=== PATIENT | female | born 2000 | race African-American/Black ===

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

== ENCOUNTER → 2021-01-02 07:30 | Outpatient (CLI) | payer MEDICAID, SELFPAY ==
[2021-01-03 13:34] LABS: Thyroid Peroxidase AB < 9 IU/mL (0-26)
== END ==
DX: E07.89 Other specified disorders of thyroid (principal)
CPT/HCPCS: 36415; 86376

== ENCOUNTER 2021-04-03 17:33 | Emergency (ER) | payer MEDICAID, SELFPAY ==
[2021-03-06 14:54] VITALS: BMI 38.1
[2021-04-03 17:33] VITALS: BP 138/74; PULSE 100; RESP 18; TEMP 36.2; O2SAT 95; BMI 36.8
--- NOTE | 2021-04-03 17:40 | EDS_ITS ---
HPI History of Present Illness Chief Complaint: Lower Extremity Injury Narrative Narrative: Patient presents with left foot pain after twisting injury in the parking lot about 45 minutes ago. She has no ankle pain no knee pain no other injury. She is still able to ambulate. [facility] Medical History Asthma Contraceptive management PCOS (polycystic ovarian syndrome) Home Medications etonogestrel 68 mg subdermal implant 1 implant SUBDERMAL ONCE 03/06/21 [History Last Taken Unknown] Allergy/AdvReac Type Severity Reaction Status Date / Time vancomycin Allergy Anaphylaxis Verified 09/06/20 09:54 Family History Unknown Diabetes Hyperlipidemia Surgical History History of strabismus surgery Social History household members: other details: mother and two brothers Smoking Status: Never smoker alcohol intake: never substance use type: does not use what type of physical activity do you participate in: none do you feel safe at home: Yes additional social history: single- Patient work at [email or web address] in [place] and Mr. Hernandez in [facility] ROS ED ROS Narrative Past medical history: none Medications: Reviewed Social history: Noncontributory Review of systems: Musculoskeletal: Left foot pain as in HPI Skin: No abrasions or lacerations Neurological: No weakness or paresthesias Hematologic: No easy bleeding or easy bruising EXAM Physical Exam Narrative Exam Narrative: Physical exam General: Patient does not appear in significant distress . Head: Normocephalic, Atraumatic Neck: No C-spine tenderness Cardiovascular: Normal distal pulses Back: Nontender, Normal Inspection. Extremities: No ankle pain. Left foot does show proximal fifth metatarsal tenderness there is no edema. Neurovascularly intact. Skin: No abrasions, no lacerations Neurological: Normal strength and sensation Const Vital Signs: 04/03/21 17:33 Temperature 97.2 F L Temperature Source Temporal Pulse Rate 100 Respiratory Rate 18 Blood Pressure 138/74 H Blood Pressure Mean 95 Pulse Ox 95 Oxygen Delivery Method Room Air MDM MDM MDM Narrative Medical decision making narrative: Patient has a normal x-ray. She appears well I will discharge her with reassurance. Radiography Diagnostic Testing: Left foot x-ray interpreted by emergency doctor does not show any fracture. Normal alignment Discharge Plan Triage Chief Complaint: Lower Extremity Injury ED Provider: Elton Herrera Dx/Rx/DC Orders Clinical Impression: Contusion of foot Instructions: ED Foot Contusion Prescriptions: No Action Nexplanon 68 mg implant 1 implant subdermal ONCE RF: 0 Primary Care Provider: [facility] Mariana Akers Referrals: [facility] Mariana Akers [Primary Care Provider] - 2 Days Disposition Disposition: Home, Self Care
--- NOTE | 2021-04-03 18:00 | RAD_ITS ---
STUDY: X-RAY - LEFT FOOT CLINICAL: Female, 20 years old. TWISTED FOOT IN PARKING LOT TODAY. PAIN ALL OVER TECHNIQUE: 3 view(s) of the foot. COMPARISON: None. FINDINGS: Normal talus, calcaneus, and tarsal bones. Normal visualized subtalar, talonavicular, calcaneocuboid, tarsal and tarsometatarsal articulations. Normal metatarsi. Normal metatarsophalangeal joint of the great toe. Normal tibial and fibular sesamoid bones. Normal interphalangeal joint of the great toe. Normal phalanges of the great toe. Normal second through fifth metatarsophalangeal joints. Normal interphalangeal joints and phalanges of the lesser toes. The soft tissue structures are unremarkable. There is no demonstrated fracture. RAD/Foot min 3 Views IMPRESSION: Normal x-ray examination of the foot. Electronically Signed: Silvino De Santiago MD at 19:25 EDT , Service support ,
== END 2021-04-03 18:23 | disposition home or self-care (01) ==
LOC: ED 18:18
PROVIDERS: Emergency Provider Emergency Medicine
DX: S90.32XA Contusion of left foot, initial encounter (principal); X50.1XXA Overexertion from prolonged static or awkward postures, initial encounter; Y93.9 Activity, unspecified; Y92.481 Parking lot as the place of occurrence of the external cause; Y99.9 Unspecified external cause status; J45.909 Unspecified asthma, uncomplicated; E28.2 Polycystic ovarian syndrome
CPT/HCPCS: 73630; 99282

== ENCOUNTER 2021-05-24 01:46 | Emergency (ER) | payer MEDICAID, SELFPAY ==
[2021-05-24 01:47] VITALS: BP 153/95; PULSE 107; RESP 18; TEMP 36.1; O2SAT 99; BMI 37.1
--- NOTE | 2021-05-24 01:57 | EX.ED.SAOD ---
HPI History of Present Illness Chief Complaint: Substance Abuse Detail of Chief Complaint: Smoke marijuana for the first time Informant: patient Onset/Context/Timing Onset: Hours Context: Sudden Onset Timing: Continuous Quality: I feel weird. I do not feel my feet. Patient states did not smell like ma Location: Not applicable Current Severity: Mild Maximum Severity: Moderate Worsened by: Smoking marijuana Relieved by: Nothing Associated Symptoms Associated Symptoms: Positive for change in mental status; Negative for vomiting*, diarrhea*, fever*, rash*, seizure, sex for drugs*, unknown, suicidal ideation, homicidal ideation and *HIV Risk Factors:Consider testing if last test > 6 months Prehospital Treatment: Naloxone, Glucose, Oxygen, BVM and CPR Narrative Narrative: Patient is a 20-year-old who states she smoked marijuana for the first time. She states it did not smell like marijuana. When asked to explain her self she states she is been around friends who have smoked it and this smell differently. Patient states she feels weird. She states she cannot feel her feet. She denies headache, visual, ocular auditory symptoms. Denies hallucinations. Denies cardiac or respiratory symptoms. She denies GI symptoms. She denies urologic symptoms. She denies symptoms of . Prior similar symptoms: No Recent Illness/Hospitalization: No PFSH PFSH Medical History Asthma Contraceptive management PCOS (polycystic ovarian syndrome) Home Medications etonogestrel 68 mg subdermal implant 1 implant SUBDERMAL ONCE 03/06/21 [History Last Taken Unknown] Allergy/AdvReac Type Severity Reaction Status Date / Time vancomycin Allergy Anaphylaxis Verified 09/06/20 09:54 Family History Unknown Diabetes Hyperlipidemia Surgical History History of strabismus surgery Social History household members: other details: mother and two brothers Smoking Status: Never smoker alcohol intake: never substance use type: does not use what type of physical activity do you participate in: none do you feel safe at home: Yes additional social history: single- Patient work at [employer] in [place] and Mr. Hernandez in [place] [employer] ROS ED Constitutional Constitutional ED: Denies chills, fever(s), subjective or sweats Eyes Eyes: Reports blurry vision; Denies change in vision or diplopia ENT ENT ED: Denies ear pain, rhinorrhea or sore throat Cardiovascular Cardiovascular: Denies chest pain, palpitations or racing heartbeat Respiratory/Chest Respiratory/Chest: Denies cough, dyspnea or dyspnea on exertion Gastrointestinal Gastrointestinal: Reports nausea; Denies abdominal pain, diarrhea or vomiting Genitourinary Genitourinary ED: Denies dysuria, LMP (females 10-50) or urinary frequency Musculoskeletal Musculoskeletal: Denies arthralgias, back pain, myalgias or neck pain Integumentary Denies rash Neurologic Neurologic: Denies headache(s), paresthesias or weakness Psychiatric Psychiatric: Reports other Details: Inappropriate laugh Hematologic/Lymphatic Hematologic/Lymphatic: Denies easy bleeding or easy bruising EXAM Physical Exam Const Vital Signs: 05/24/21 01:47 Temperature 97 F L Temperature Source Temporal Pulse Rate 107 H Respiratory Rate 18 Blood Pressure 153/95 H Blood Pressure Mean 114 Pulse Ox 99 Positive well nourished, well developed and obese General Appearance ED: well developed, NAD and other Patient with inappropriate laughing comments. ; Negative for pallor Nutritional Appearance: obese HEENT Reports TM's clear and moist mucous membranes HEENT Narrative: Head is normocephalic. Ears normal. atraumatic Tympanic Membrane ED: Yes TM's clear Eyes PERRL and EOMs intact bilaterally General Eye ED: Negative for pale conjunctiva or scleral icterus Neck no lymphadenopathy, supple and no JVD Lymph Lymphatic: no lymphadenopathy noted Chest Wall inspection of chest normal and palpation of chest normal Resp normal respiratory effort and clear to auscultation bilaterally Cardio regular rhythm, S1 normal heart sound, S2 normal heart sound and no murmurs Rate: tachycardic GI soft to palpation, non-tender, non-distended and no masses Back/Spine no CVA tenderness Cervical Spine: Negative for cervical spine tenderness Thoracic Spine / Upper Back: Negative for thoracic spinal tenderness Lumbar Spine / Lower Back: Negative for lumbar spinal tenderness Extremity General Extremety ED: Yes tenderness; Negative for edema or other findings General Extremity: Negative for edema or other findings Neuro No oriented x3, CN's II-XII intact bilaterally and no sensory deficits noted Sensorium / Orientation: alert, oriented to person and oriented to place; Negative for oriented to time Motor Exam: strength 5/5 throughout Psych Negative for thought process normal Attitude: No belligerent, No agitated, No aggressive and No hostile Mood & Affect: Negative for depressed, anxious or tearful Skin General Skin Exam: Negative for jaundice or pallor Lesions: no lesions Rashes: no rashes MDM MDM MDM Narrative Medical decision making narrative: Patient has adverse symptoms due to illicit drug use. Suspect patient smoked synthetic marijuana based on smell and behavior. Spoke to her mother who will be up to the emergency department. She apparently called her mother. She would not tell her mother where she was. When asked why she did not tell her mother where she was she began to laugh. In my fresh medical opinion laboratory studies are not warranted or indicated. Will observe Ms. Gunderson and talk with mother when she arrives. Spoke with mom at 0215. Mother feels comfortable taking home. Patient be discharged to the custody of her mother. Discharge Plan Triage Chief Complaint: Substance Abuse ED Provider: Glenn Hernandez Dx/Rx/DC Orders Clinical Impression: Acute alteration in mental status, Illicit drug use Instructions: ED Marijuana Abuse Prescriptions: No Action Nexplanon 68 mg implant 1 implant subdermal ONCE RF: 0 Primary Care Provider: [facility] Mariana Akers Referrals: [facility] Mariana Akers [Primary Care Provider] - Disposition Disposition: Home, Self Care
== END 2021-05-24 02:27 | disposition home or self-care (01) ==
PROVIDERS: Emergency Provider Emergency Medicine; PCP Nurse Practitioner Adult Health
DX: R41.82 Altered mental status, unspecified (principal); F12.10 Cannabis abuse, uncomplicated; H53.8 Other visual disturbances; R11.0 Nausea; E28.2 Polycystic ovarian syndrome; J45.909 Unspecified asthma, uncomplicated; E66.9 Obesity, unspecified
CPT/HCPCS: 99284

== ENCOUNTER → 2021-07-03 | Outpatient (CLI) | payer MEDICAID, SELFPAY | END | disposition home or self-care (01) | LOC: LABSPEC 12:37 | PROVIDERS: PCP Nurse Practitioner Adult Health; Referring Provider Nurse Practitioner Women's Health; Visit Provider Nurse Practitioner Women's Health | DX: Z12.4 Encounter for screening for malignant neoplasm of cervix (principal); Z11.3 Encounter for screening for infections with a predominantly sexual mode of transmission ==

== ENCOUNTER → 2021-07-03 | Outpatient (CLI) | payer MEDICAID, SELFPAY ==
[2021-07-05 22:07] LABS: Chlamydia By Nucleic Acid AMP Negative (Negative)
[2021-07-05 22:33] LABS: Gonococcus By Nucleic Acid AMP Negative (Negative)
[2021-07-06 17:16] LABS: HPV Reflexed? NOT INDICATED
== END | disposition home or self-care (01) ==
LOC: LABSPEC 12:36
PROVIDERS: PCP Nurse Practitioner Adult Health; Referring Provider Nurse Practitioner Women's Health; Visit Provider Nurse Practitioner Women's Health
DX: Z11.3 Encounter for screening for infections with a predominantly sexual mode of transmission (principal)
CPT/HCPCS: 87491; 87591; 88175; G0145

== ENCOUNTER 2021-08-06 23:28 | Emergency (ER) | payer MEDICAID, SELFPAY ==
[2021-08-06 23:29] VITALS: BP 174/108; PULSE 89; RESP 16; TEMP 36.2; O2SAT 96; BMI 37.3
[2021-08-07 00:36] LABS: Bedside Glucose 143 mg/dL (70-110)
--- NOTE | 2021-08-07 01:04 | EX.ED.DYSGE1 ---
HPI History of Present Illness Chief Complaint: Lower Extremity Injury Informant: patient Narrative Narrative: Patient is a 21-year-old female with history of PCOS, new diagnosis of diabetes mellitus due to elevated A1c, not currently on any medications, asthma and back problems presenting with right foot tingling. Patient states her about 30 minutes prior to arrival. She no she was seated on the couch when suddenly her right foot felt like it was tingling. She states often her legs will go numb if she sits for too long and this has been going on for years. She states her foot feels a little cold. She denies associated pain. She denies any new trauma. She notes has been having increased back pain and was seen at urgent care last week. She had an x-ray which showed narrowing in her lumbar region and was instructed to follow-up with her primary care doctor. She states about a year ago she was in physical therapy for her back and was supposed to get an MRI but did not complete her physical therapy in order to get the MRI approved from insurance. She denies any bowel or bladder incontinence. She denies any fever or chills. No history of IV drug use per the patient. No other complaints at this time. [facility] Medical History Asthma Diabetes PCOS (polycystic ovarian syndrome) Home Medications etonogestrel 68 mg subdermal implant 1 implant SUBDERMAL ONCE 03/06/21 [History Last Taken Unknown] fluconazole 150 mg tablet 150 mg PO DAILY 2 Days #2 tab 08/01/21 [Rx Last Taken Unknown] Allergy/AdvReac Type Severity Reaction Status Date / Time vancomycin Allergy Anaphylaxis Verified 08/01/21 13:11 Family History Unknown Diabetes Hyperlipidemia Surgical History History of strabismus surgery Social History household members: other details: mother and two brothers Smoking Status: Never smoker alcohol intake: never substance use type: does not use what type of physical activity do you participate in: none do you feel safe at home: Yes additional social history: single- Patient work at [employer] in [place] and Mr. Hernandez in [place] ROS ROS ED Constitutional Constitutional ED: Denies chills, fever(s) or malaise Eyes Eyes: Denies blurry vision or loss of vision ENT ENT ED: Denies rhinorrhea or sore throat Cardiovascular Cardiovascular: Denies chest pain or dizziness Respiratory/Chest Respiratory/Chest: Denies cough or dyspnea Gastrointestinal Gastrointestinal: Denies abdominal pain, nausea or vomiting Genitourinary Genitourinary ED: Denies dysuria or hematuria Musculoskeletal Musculoskeletal: Reports back pain; Denies arthralgias or myalgias Integumentary Denies rash or wounds Neurologic Neurologic: Reports paresthesias; Denies focal weakness or headache(s) Psychiatric Psychiatric: Denies anxiety or behavioral changes Endocrine Endocrinology: Denies polydipsia or polyuria EXAM Physical Exam Const Vital Signs: 08/06/21 23:29 08/07/21 01:14 Temperature 97.2 F L Temperature Source Temporal Pulse Rate 89 Respiratory Rate 16 16 Blood Pressure 174/108 H Blood Pressure Mean 130 Pulse Ox 96 Oxygen Delivery Method Room Air Positive well nourished and well developed General Appearance ED: well developed HEENT Reports moist mucous membranes Eyes PERRL and EOMs intact bilaterally Neck supple Chest Wall inspection of chest normal Resp normal respiratory effort and clear to auscultation bilaterally Cardio regular rate, regular rhythm and no murmurs Back/Spine no CVA tenderness Back/Spine Narrative: Bilateral lumbar paraspinal tenderness to palpation around L4/L5 Thoracic Spine / Upper Back: Negative for thoracic spinal tenderness Lumbar Spine / Lower Back: Negative for lumbar spinal tenderness Neuro oriented x3, CN's II-XII intact bilaterally and no sensory deficits noted Sensorium / Orientation: alert Motor Exam: strength 5/5 throughout Psych Psych Narrative: 5 out of 5 strength bilaterally with plantar and dorsiflexion. Diminished patellar reflex bilaterally. Normal strength bilaterally with great toe flexion and extension. Sensation intact to light touch in all dermatomes of the right lower extremities. Skin no rashes or lesions noted and no wounds MDM MDM MDM Narrative Medical decision making narrative: Patient evaluated for subjective paresthesias of her right foot. He states it is like going on for 30 minutes she then also tells me that she had involvement of her second and third toe with paresthesias a week ago. She is been dealing with chronic back pain that has been flared up over the past few weeks. Do wonder if this could be related. She is ambulating does not have any foot drop. Her gait is normal. Fingerstick glucose is mildly elevated at 143. I do not suspect DKA or HH NK. She has a normal neurologic exam and I do not think emergent imaging is indicated. She is referred to spine for her back pain. She does not have any cauda equina symptoms. She not having any pain. She is also encouraged to follow-up with her primary care doctor. I am not sure what is causing her symptoms I do think she is stable and safe for outpatient follow-up. She is counseled on this. Patient verbalizes agreement understand this plan. She discharged home in stable condition. Lab Data Labs: Laboratory Results - last 24 hr 08/07/21 00:30 POC Glucose 143 H Discharge Plan Triage Chief Complaint: Lower Extremity Injury ED Provider: Radha Womack Dx/Rx/DC Orders Clinical Impression: Paresthesia of foot Instructions: ED Paraesthesias Prescriptions: No Action Nexplanon 68 mg implant 1 implant subdermal ONCE RF: 0 fluconazole [Diflucan] 150 mg tablet 150 mg PO DAILY 2 Days Qty: 2 RF: 3 Primary Care Provider: Shalonda Kim Referrals: Giorgi Baird MD [NON-STAFF] - Giorgi Henry DO [STAFF PHYSICIAN] - Shalonda Kim NP-C [Primary Care Provider] - Disposition Disposition: Home, Self Care Discharge Date/Time: 08/07/21 01:14
[2021-08-07 01:14] VITALS: RESP 16
== END 2021-08-07 01:14 | disposition home or self-care (01) ==
PROVIDERS: Emergency Provider Emergency Medicine; PCP Nurse Practitioner Adult Health
DX: R20.2 Paresthesia of skin (principal); M48.061 Spinal stenosis, lumbar region without neurogenic claudication; M54.9 Dorsalgia, unspecified; G89.29 Other chronic pain; E11.9 Type 2 diabetes mellitus without complications; J45.909 Unspecified asthma, uncomplicated; E28.2 Polycystic ovarian syndrome
CPT/HCPCS: 82962; 99282

== ENCOUNTER 2021-08-14 03:05 | Emergency (ER) | payer MEDICAID, SELFPAY ==
[2021-08-14 03:05] VITALS: PULSE 115; RESP 17; TEMP 36.8; O2SAT 97; BMI 37.3
[2021-08-14] MEDS: cycloBENZAPRine HCl 10 MG Tablet PO (03:34)
[2021-08-14] MEDS: Naproxen 500 MG Tablet PO (03:34)
[2021-08-14] MEDS: HYDROcodone Bitartrate/Apap 5/325 Tablet PO (03:34)
--- NOTE | 2021-08-14 04:47 | ED.VIS.BACK ---
HPI History of Present Illness Chief Complaint: Back Informant: patient Onset/Context/Timing Onset: - (Chronic back pain, worse [id number]) Narrative Narrative: Patient reports she is been having trouble with her lower back. She was recently placed on Mobic and tizanidine. She is an appointment to see her doctor in 3 days. Tonight she coughed and had worsening of her low back pain. No problems with bowel or bladder control. No direct trauma. She denies IV drug use. No fever or chills. [facility] Medical History Asthma Diabetes PCOS (polycystic ovarian syndrome) Home Medications hydrocodone-acetaminophen 1 tab PO Q6H PRN 3 Days #10 tab 08/14/21 [Rx Last Taken Unknown] meloxicam 15 mg DAILY 08/14/21 [History Last Taken Unknown] tizanidine 4 mg PO QHS PRN PRN 08/14/21 [History Last Taken Unknown] Allergy/AdvReac Type Severity Reaction Status Date / Time vancomycin Allergy Anaphylaxis Verified 08/14/21 03:15 Family History Unknown Diabetes Hyperlipidemia Family History no significant family his Surgical History History of strabismus surgery Surgical History no surgical history Social History household members: other details: mother and two brothers Smoking Status: Never smoker alcohol intake: never substance use type: does not use what type of physical activity do you participate in: none do you feel safe at home: Yes additional social history: single- Patient work at [employer] in [place] and Mr. Hernandez in [facility] ROS ED Constitutional Constitutional ED: Denies chills or fever(s) Eyes Eyes: Denies change in vision ENT ENT ED: Denies sore throat Cardiovascular Cardiovascular: Denies chest pain Respiratory/Chest Respiratory/Chest: Denies cough or dyspnea Gastrointestinal Gastrointestinal: Denies abdominal pain, diarrhea, nausea or vomiting Genitourinary Genitourinary ED: Denies dysuria Musculoskeletal Musculoskeletal: Reports back pain Integumentary Denies rash Neurologic Neurologic: Denies headache(s), paresthesias or weakness Allergic/Immunologic Allergic/Immunologic ED: Denies urticaria EXAM Physical Exam Narrative Exam Narrative: Patient observed ambulating into her room with mild antalgic gait. Const Vital Signs: 08/14/21 03:05 Temperature 98.3 F Temperature Source Temporal Pulse Rate 115 H Respiratory Rate 17 Pulse Ox 97 Oxygen Delivery Method Room Air Positive well nourished and well developed General Appearance ED: well developed Eyes PERRL and EOMs intact bilaterally Neck supple Resp normal respiratory effort and clear to auscultation bilaterally Cardio regular rate and regular rhythm GI normal to inspection, nondistended, normoactive bowel sounds, soft to palpation and non-tender Back/Spine Back/Spine Narrative: Reproducible tenderness in the lumbar paraspinal muscles. No overlying erythema. Extremity normal to inspection Neuro oriented x3 and no sensory deficits noted Sensorium / Orientation: alert Motor Exam: strength 5/5 throughout Psych mental status grossly normal Skin no rashes or lesions noted MDM MDM MDM Narrative Medical decision making narrative: Patient was given naproxen, Flexeril, [place]. With no direct trauma to her back and a normal neuro exam I do not feel repeat imaging is needed at this time. Treatment and Re-Evaluation Comments:: On repeat evaluation patient is resting more comfortably. She is slightly sedated from the pain medication. She will continue her tizanidine and Mobic at home. I will write her for a short course of [place] to use as needed. I did do an [facility] report patient has had no prescriptions in the past year Discharge Plan Triage Chief Complaint: Back ED Provider: Ladonna Reeves Dx/Rx/DC Orders Clinical Impression: Back pain, Lumbar paraspinal muscle spasm Instructions: ED Back Sprain/Strain Prescriptions: New hydrocodone-acetaminophen 5-325 mg tablet 1 tab PO Q6H PRN (Reason: pain) 3 Days Qty: 10 RF: 0 No Action tizanidine 4 mg tablet 4 mg PO QHS PRN PRN (Reason: Muscle Spasm) RF: 0 meloxicam 15 mg tablet 15 mg DAILY RF: 0 Primary Care Provider: Shalonda Kim Referrals: Shalonda Kim, [facility] [Primary Care Provider] - Activity Restrictions/Additional Instructions: Keep your scheduled appointment for Friday. Disposition Disposition: Home, Self Care Discharge Date/Time: 08/14/21 04:58
== END 2021-08-14 04:58 | disposition home or self-care (01) ==
PROVIDERS: Emergency Provider Emergency Medicine; PCP Nurse Practitioner Adult Health
DX: M54.50 Low back pain, unspecified (principal); G89.29 Other chronic pain; M62.830 Muscle spasm of back; E11.9 Type 2 diabetes mellitus without complications; J45.909 Unspecified asthma, uncomplicated; E28.2 Polycystic ovarian syndrome; Z79.1 Long term (current) use of non-steroidal anti-inflammatories (NSAID); Z79.899 Other long term (current) drug therapy
CPT/HCPCS: 99283

== ENCOUNTER 2021-11-08 14:18 | Outpatient (CLI) | payer MEDICAID, SELFPAY ==
[2021-11-09 09:08] LABS: HIV - WCH Non-Reactive (Nonreactive); Hepatitis C Antibody Non-Reactive (Nonreactive); Syphilis Antibodies Non-reactive
[2021-11-10 09:52] LABS: HSV 1 IgG < 0.91 index (0.00-0.90); HSV 2 IgG < 0.91 index (0.00-0.90)
[2021-11-13 00:06] LABS: Chlamydia By Nucleic Acid AMP Negative (Negative)
[2021-11-13 13:58] LABS: Gonococcus By Nucleic Acid AMP Negative (Negative)
== END 2021-11-08 23:59 | disposition home or self-care (01) ==
PROVIDERS: PCP Nurse Practitioner Adult Health; Referring Provider Nurse Practitioner Women's Health; Visit Provider Nurse Practitioner Women's Health
DX: Z20.2 Contact with and (suspected) exposure to infections with a predominantly sexual mode of transmission (principal)
CPT/HCPCS: 36415; 86695; 86696; 86703; 86780; 86803; 87491; 87591

== ENCOUNTER 2021-12-11 12:09 | Outpatient (CLI) | payer MEDICAID, SELFPAY ==
[2021-12-11 14:01] LABS: HIV - WCH Non-Reactive (Nonreactive); Hepatitis B Surface Antigen Non-Reactive (Nonreactive); Hepatitis C Antibody Non-Reactive (Nonreactive); Syphilis Antibodies Non-reactive
[2021-12-13 22:07] LABS: Chlamydia By Nucleic Acid AMP Negative (Negative)
[2021-12-14 12:51] LABS: Gonococcus By Nucleic Acid AMP Negative (Negative)
== END 2021-12-11 23:59 | disposition home or self-care (01) ==
PROVIDERS: PCP Nurse Practitioner Primary Care; Visit Provider Obstetrics & Gynecology
DX: Z11.3 Encounter for screening for infections with a predominantly sexual mode of transmission (principal)
CPT/HCPCS: 36415; 86703; 86780; 86803; 87070; 87205; 87340; 87491; 87591

== ENCOUNTER → 2022-02-06 | Outpatient (CLI) | payer MEDICAID, SELFPAY ==
[2022-02-06 18:33] LABS: Chlamydia Trachomatis by PCR Negative (Negative); Neisserai gonorrhoeae by PCR Negative (Negative); Probe Check PASS; Sample Adequacy Control PASS; Specimen Processing Control PASS
== END | disposition home or self-care (01) ==
LOC: LABSPEC 16:21
PROVIDERS: PCP Nurse Practitioner Primary Care; Visit Provider Nurse Practitioner Women's Health
DX: Z11.3 Encounter for screening for infections with a predominantly sexual mode of transmission (principal)
CPT/HCPCS: 87491; 87591

== ENCOUNTER → 2022-03-21 | Outpatient (CLI) | payer MEDICAID, SELFPAY ==
[2022-03-25 21:07] LABS: Chlamydia By Nucleic Acid AMP Negative (Negative)
[2022-03-25 21:24] LABS: Gonococcus By Nucleic Acid AMP Negative (Negative)
== END | disposition home or self-care (01) ==
LOC: LABSPEC 16:34
PROVIDERS: PCP Nurse Practitioner Primary Care; Referring Provider Nurse Practitioner Women's Health; Visit Provider Nurse Practitioner Women's Health
DX: N76.0 Acute vaginitis (principal); Z11.3 Encounter for screening for infections with a predominantly sexual mode of transmission
CPT/HCPCS: 87070; 87205; 87491; 87591

== ENCOUNTER → 2022-05-14 | Outpatient (CLI) | payer MEDICAID, SELFPAY ==
[2022-05-14 13:52] LABS: Follicle Stimulating Hormone 4.2 mIU/mL; Prolactin 14.8 ng/mL; Thyroid Stim Hormone (TSH) 1.94 uIU/mL (0.358-3.74)
[2022-05-15 08:19] LABS: Thyroid Peroxidase AB < 8 IU/mL (0-34)
== END | disposition home or self-care (01) ==
LOC: PAVLAB 11:23
PROVIDERS: PCP Nurse Practitioner Primary Care; Referring Provider Nurse Practitioner Women's Health; Visit Provider Nurse Practitioner Women's Health
DX: N91.2 Amenorrhea, unspecified (principal)
CPT/HCPCS: 36415; 83001; 84146; 84439; 84443; 86376

== ENCOUNTER → 2022-06-12 | Outpatient (CLI) | payer MEDICAID, SELFPAY ==
[2022-06-12 12:18] LABS: Prolactin 11.5 ng/mL; Thyroid Stim Hormone (TSH) 1.79 uIU/mL (0.358-3.74)
[2022-06-12 12:47] LABS: HIV - WCH Non-Reactive (Nonreactive); Hepatitis B Surface Antigen Non-Reactive (Nonreactive); Hepatitis C Antibody Non-Reactive (Nonreactive); Syphilis Antibodies Non-reactive
[2022-06-14 22:06] LABS: Chlamydia By Nucleic Acid AMP Negative (Negative)
[2022-06-15 07:18] LABS: Gonococcus By Nucleic Acid AMP Negative (Negative)
[2022-06-17 11:17] LABS: 17-Hydroxyprogesterone 64 ng/dL (.)
[2022-06-24 10:07] LABS: Testosterone, % Free 2.39 % (0.50-2.80); Testosterone, Free 1.15 ng/dL (0.10-0.85); Testosterone, Total 48 ng/dL (13-71)
[2022-06-24 13:27] LABS: HSV 1 IgG < 0.91 index (0.00-0.90); HSV 2 IgG 8.11 index (0.00-0.90)
== END | disposition home or self-care (01) ==
PROVIDERS: PCP Nurse Practitioner Primary Care; Referring Provider Obstetrics & Gynecology; Visit Provider Obstetrics & Gynecology
DX: N89.8 Other specified noninflammatory disorders of vagina (principal); Z11.3 Encounter for screening for infections with a predominantly sexual mode of transmission; N91.2 Amenorrhea, unspecified
CPT/HCPCS: 36415; 82627; 83498; 84146; 84402; 84403; 84443; 86695; 86696; 86703; 86780; 86803; 87070; 87205; 87340; 87491; 87591; 82626

== ENCOUNTER → 2022-09-11 | Outpatient (CLI) | payer MEDICAID, SELFPAY | END | disposition home or self-care (01) | LOC: LABSPEC 11:15 | PROVIDERS: PCP Nurse Practitioner Primary Care; Visit Provider Registered Nurse | DX: Z30.9 Encounter for contraceptive management, unspecified (principal) | CPT/HCPCS: 87070; 87077; 87186; 87205 ==

== ENCOUNTER → 2023-01-15 | Outpatient (CLI) | payer MEDICAID, SELFPAY ==
[2023-01-15 16:50] LABS: HIV - WCH Non-Reactive (Nonreactive); Hepatitis C Antibody Non-Reactive (Nonreactive); Syphilis Antibodies Non-reactive
[2023-01-15 17:13] LABS: Chlamydia Trachomatis by PCR Negative (Negative); Neisserai gonorrhoeae by PCR Negative (Negative); Probe Check PASS; Sample Adequacy Control PASS; Specimen Processing Control PASS
== END | disposition home or self-care (01) ==
PROVIDERS: PCP Nurse Practitioner Primary Care; Referring Provider Advanced Practice Midwife; Visit Provider Advanced Practice Midwife
DX: Z11.3 Encounter for screening for infections with a predominantly sexual mode of transmission (principal)
CPT/HCPCS: 36415; 86703; 86780; 86803; 87491; 87591

== ENCOUNTER → 2024-04-07 | Outpatient (CLI) | payer MEDICAID, SELFPAY ==
[2024-04-10 16:09] LABS: Chlamydia By Nucleic Acid AMP Negative (Negative); Gonococcus By Nucleic Acid AMP Negative (Negative)
[2024-04-13 22:06] LABS: HPV APTIMA, High Risk Positive (Negative)
[2024-04-13 23:08] LABS: HPV Reflexed? YES, CHARGE PATIENT
== END | disposition home or self-care (01) ==
PROVIDERS: PCP Nurse Practitioner Primary Care; Referring Provider Advanced Practice Midwife; Visit Provider Advanced Practice Midwife
DX: Z01.419 Encounter for gynecological examination (general) (routine) without abnormal findings (principal); Z11.3 Encounter for screening for infections with a predominantly sexual mode of transmission
CPT/HCPCS: 87491; 87591; 87624; 88175; G0145

== ENCOUNTER → 2024-05-27 | Outpatient (CLI) | payer MEDICAID, SELFPAY ==
[2024-06-01 22:07] LABS: Chlamydia By Nucleic Acid AMP Negative (Negative); Gonococcus By Nucleic Acid AMP Negative (Negative)
== END | disposition home or self-care (01) ==
LOC: LABSPEC 14:47
PROVIDERS: PCP Nurse Practitioner Primary Care; Referring Provider Nurse Practitioner Family; Visit Provider Nurse Practitioner Family
DX: N89.8 Other specified noninflammatory disorders of vagina (principal); Z20.2 Contact with and (suspected) exposure to infections with a predominantly sexual mode of transmission
CPT/HCPCS: 87070; 87205; 87491; 87591

== ENCOUNTER → 2025-03-24 | Outpatient (CLI) | payer MEDICAID, SELFPAY ==
[2025-03-24 13:25] LABS: HIV Nonreactive (Nonreactive); Hepatitis B Surface Antigen Nonreactive (Nonreactive); Hepatitis C Antibody Nonreactive (Nonreactive); Syphilis Antibodies Nonreactive (Nonreactive)
[2025-03-25 05:08] LABS: HSV 1 IgG Non Reactive (Non Reactive); HSV 2 IgG Reactive (Non Reactive)
[2025-03-27 14:07] LABS: Chlamydia By Nucleic Acid AMP Negative (Negative); Gonococcus By Nucleic Acid AMP Negative (Negative)
[2025-03-28 07:31] LABS: HPV Reflexed? NOT INDICATED
== END | disposition home or self-care (01) ==
PROVIDERS: PCP Nurse Practitioner Primary Care; Referring Provider Nurse Practitioner Family; Visit Provider Nurse Practitioner Family
DX: Z12.4 Encounter for screening for malignant neoplasm of cervix (principal); N92.6 Irregular menstruation, unspecified; N89.8 Other specified noninflammatory disorders of vagina; Z20.2 Contact with and (suspected) exposure to infections with a predominantly sexual mode of transmission
CPT/HCPCS: 36415; 86695; 86696; 86703; 86780; 86803; 87070; 87205; 87340; 87491; 87591; 88175; G0145

== ENCOUNTER → 2025-04-16 | Outpatient (CLI) | payer OTHER, SELFPAY ==
--- NOTE | 2025-04-16 10:13 | US_ITS ---
PROCEDURE: PELVIC W/ TRANSVAGINAL 04/16/2025 REASON FOR EXAM: AUB TECHNIQUE: PELVIC W/ TRANSVAGINAL COMPARISON: None. FINDINGS: Measurements: Uterus: 7.3 x 3.1 x 4.2 cm for volume of 48.6 mL Endometrial Thickness: 0.7 cm Right Ovary: 3.8 x 2.5 x 2.4 cm for volume of 11.9 mL. Left Ovary: 3.2 x 2.3 x 2.1 cm for volume of 8.0 mL Uterus: Anteverted. Normal contour. Cystic changes of the endometrium at the lower uterine segment. Right ovary: Numerous physiologic follicles throughout the right ovary, at least 10 on a single image. Left ovary: Numerous physiologic follicles throughout the left ovary, at least 10 on a single image. Cul-de-sac: No free intraperitoneal fluid identified. Color Doppler: Normal color flow doppler signal at both ovaries. US/Pelvic w/ Transvaginal IMPRESSION: 1. Polycystic morphology of the ovaries, correlate for clinical evidence of PC OS. 2. Cystic changes at the lower uterine segment could be the result of endometr ial hyperplasia (which can be related to PCOS) and/or nabothian cysts. Reading Location: [facility]
--- OUTSIDE RECORDS SUMMARY | 2025-04-16 10:24 | XMS RPT_ITS | CCD ---
Author Organization [facility] Care Team Providers Care Tool Repairer Name Role Phone BLAYNE FRANCIS Primary Care Physician Tyson RAMOS, Claudia Unavailable Unavailable PHYSICIAN, NONE Primary Care Physician Unavailab ree Kim, MISSILE AND MISSILE CHECKOUT TECHNICIAN-C Shalonda Primary Care Provider Judy, MISSILE AND MISSILE CHECKOUT TECHNICIAN-C Shalonda Referring Provider Dr. Ladonna Yanes Attending Provider MANNY Norris NP Attending Provider Demario Garcia MD Primary Care Provider Judy, GERA-C Shalonda Primary Care Provider Judy, MISSILE AND MISSILE CHECKOUT TECHNICIAN-C Shalonda Referring Provider Dr. Ladonna Yanes Attending Provider Podlogar MISSILE AND MISSILE CHECKOUT TECHNICIAN, GERA-C Ying Primary Care Provider Judy, MISSILE AND MISSILE CHECKOUT TECHNICIAN-C Shalonda Primary Care Provider Judy, MISSILE AND MISSILE CHECKOUT TECHNICIAN-C Shalonda Referring Provider MANNY Norris NP Attending Provider Podlogar MISSILE AND MISSILE CHECKOUT TECHNICIAN, MISSILE AND MISSILE CHECKOUT TECHNICIAN-C Ying Referring Provider Grace Cui Primary Care Provider Podlogar Ying GONZALEZ Primary Care Provider Judy, MISSILE AND MISSILE CHECKOUT TECHNICIAN-C Shalonda Referring Provider Dr. Ladonna Yanes Attending Provider Podlogar DOCK ATTENDANT.CCUO Ying Primary Care Provider PHYSICIAN, PATIENT UNSURE Primary Care Physician Unavailable PODLOGAR DOCK ATTENDANT.DIVEMASTER, YING Primary Care Physician Podlogar MISSILE AND MISSILE CHECKOUT TECHNICIAN, MISSILE AND MISSILE CHECKOUT TECHNICIAN-C Ying Primary Care Provider Podlogar MISSILE AND MISSILE CHECKOUT TECHNICIAN, MISSILE AND MISSILE CHECKOUT TECHNICIAN-C Ying Referring Provider Dr. Ladonna Yanes Attending Provider Dr. Aiyana Mccullough Attending Provider DENISHA Squires Attending Provider Podlogar DOCK ATTENDANT.CUCO Ying Primary Care Provider DONA THOMAS, DEAN Bagley Attending Unavailab le PHYSICIAN, PATIENT UNSURE Primary Care Unavai tamara PHYSICIAN, NONE Primary Care Unavailable WILVER BANERJEE Attending Unavailable TONY HILL Attending Unavailable PHYSICIAN, NONE Primary Care Unavailable EMY PEREZ MD Attending Unavail able FIDE NORWOOD, BLAYNE L Primary Care Unavailable PODLOGAR DOCK ATTENDANT.CUCO YING Primary Care Unavail able DR. CALOS MARTINEZ DO Attending Unavailable EMY PEREZ MD Attending Unavail able PODLOGAR DOCK ATTENDANT.CUCO, YING Primary Care Unavail able RICKY LEACH Attending Unavailable PHYSICIAN, PATIENT UNSURE Primary Care UnaRAFA Grey Attending Unavailable PHYSICIAN, NONE Primary Care Unavailable PHYSICIAN, NONE Primary Care Unavailable WILVER BANERJEE Attending Unavailable Podlogar MISSILE AND MISSILE CHECKOUT TECHNICIAN, MISSILE AND MISSILE CHECKOUT TECHNICIAN-C Ying Primary Care Provider Podlogar MISSILE AND MISSILE CHECKOUT TECHNICIAN, MISSILE AND MISSILE CHECKOUT TECHNICIAN-C Ying Referring Provider Myrna BOSS, MISSILE AND MISSILE CHECKOUT TECHNICIAN-C Tammi Attending Provider DENISHA Ptael Attending Provider [phone] Podlogar DOCK ATTENDANT.Ying NORWOOD Primary Care Provider Grace Cui MD Primary Care Provider PODLOGAR DOCK ATTENDANT.CUCO YING Primary Care Unavail able MY THOMAS FACP, WILVER Farrell Consulting Unavail able MY THOMAS FACP, WILVER Farrell Attending Unavail able [place] DOCK ATTENDANT-DIVEMASTER, MORGAN M Admitting Unavail able PODLOGAR DOCK ATTENDANT.DIVEMASTER, YING Primary Care Unavail able ANA THOMAS, EMY Plamer Attending Unavail able PODLOGAR DOCK ATTENDANT.DIVEMASTER, YING Primary Care Unavail able DONA THOMAS, DR DEAN Bagley Attending Clau petersonle PODLOGAR, YING Primary Care Unavailable PODLOGAR, YING Primary Care Unavailable PODLOGAR, YING Primary Care Unavailable PODLOGAR, YING Primary Care Unavailable PODLOGAR, YING Primary Care Unavailable PODLOGAR, YING Primary Care Unavailable PODLOGAR, YING Primary Care Unavailable PODLOGAR, YING Primary Care Unavailable PODLOGAR, YING Attending Unavailable PODLOGAR, YING Primary Care Unavailable PODLOGAR, YING Primary Care Unavailable PODLOGAR, YING Attending Unavailable SELF Referring Unavailable PODLOGAR, YING Primary Care Unavailable PODLOGAR, YING Primary Care Unavailable MICHELLE MCWILLIAMS Attending Unavailable PODLOGAR, YING Primary Care Unavailable Podlogar MISSILE AND MISSILE CHECKOUT TECHNICIAN-C, Ying Primary Care Provider [phone] Podlogar MISSILE AND MISSILE CHECKOUT TECHNICIAN-C, Ying Referring Provider [phone] Claudine MISSILE AND MISSILE CHECKOUT TECHNICIAN-C, Isa Attending Provider [phone] Claudine MISSILE AND MISSILE CHECKOUT TECHNICIAN-C, Isa Referring Provider [phone] Isa Chow Attending Unavailable Podlogar MISSILE AND MISSILE CHECKOUT TECHNICIAN, Ying Primary Care Unavailable Podlogar MISSILE AND MISSILE CHECKOUT TECHNICIAN, Ying Referring Unavailable Podlogar MISSILE AND MISSILE CHECKOUT TECHNICIAN, Ying Primary Care Unavailable Myrna MISSILE AND MISSILE CHECKOUT TECHNICIANTammi Attending Unavailable Podlogar MISSILE AND MISSILE CHECKOUT TECHNICIAN, Ying Referring Unavailable Isa Chow Attending Unavailable Podlogar MISSILE AND MISSILE CHECKOUT TECHNICIAN, Ying Primary Care Unavailable Podlogar MISSILE AND MISSILE CHECKOUT TECHNICIAN, Ying Referring Unavailable Podlogar MISSILE AND MISSILE CHECKOUT TECHNICIAN, Ying Primary Care Unavailable EricamanIsa Referring Unavailable EricamanIsa Attending Unavailable EricamanJigarIsa Attending Unavailable EricamanIsa Referring Unavailable Podlogar MISSILE AND MISSILE CHECKOUT TECHNICIAN, Ying Primary Care Unavailable Podlogar MISSILE AND MISSILE CHECKOUT TECHNICIAN, Ying Primary Care Unavailable Ericaman, Isa Referring Unavailable Barkman, Isa Attending Unavailable Ericaman, Isa Attending Unavailable Podlogar MISSILE AND MISSILE CHECKOUT TECHNICIAN, Ying Primary Care Unavailable Podlogar MISSILE AND MISSILE CHECKOUT TECHNICIAN, Ying Referring Unavailable Allergies Allergy Classification Reported Allergen(s) Allergy Type Date of Onset Reaction(s) Facility Amoxicillin / Clavulanate (1 source) Amoxicillin / Clavulanate Drug Allergy 2 [facility] Work Phone: Glycopeptides (antibiotic) (1 source) Vancomycin Drug Allergy 8 Shortness of Breath [facility] (20 sources) Vancomycin; Translations: [vancomycin] Drug Allergy 8 Shortness of Breath [facility] (20 sources) Amoxicillin / Clavulanate; Translations: [AMOXICILLIN-POT CLAVULANATE] Drug Allergy 2 [facility] Work Phone: (2 sources) Amoxicillin; Translations: [amoxicillin] Drug Allergy [facility] (1 source) Vancomycin Drug Allergy 5 [facility] Repository Medications Current Medications Medication Drug Class(es) Dates Sig (Normalized) Sig (Original) acyclovir 400 mg oral tablet (4 sources) Herpesvirus Nucleoside Analog DNA Polymerase Inhibitor, Herpes Simplex Virus Nucleoside Analog DNA Polymerase Inhibitor, Herpes Zoster Virus Nucleoside Analog DNA Polymerase Inhibitor Start: 02-11-2025 take 1 tablet by mouth three times daily Acyclovir 400 mg tablet Active 400 mg PO THREE TIMES A DAY 90 30 6 February 11, 2025 12:00am sensor 200 actuat albuterol 0.09 mg/actuat dry powder inhaler (20 sources) beta2-Adrenergic Agonist Start: 12-22-2023 Albuterol Sulfate 90 mcg/actuation aero powdr breath act w/sensor Active 2 NMA INHALATION EVERY 4-6 HOURS as needed December 22, 2023 12:00am Start: 07-07-2019 take 1 puff(s) by in halation every four hours as needed albuterol 90 mcg/inh inhalation powder 1 puff(s), Inhalation, q4h, PRN as needed, # 1 EA, 0 Refill(s) Start Date: 07/07/19 Status: Ordered Quantity: 1.0 Unit: EA Repeat number: 1 Start: 09-07-2018 End: 04-29-2024 take 2 puff(s) by inhalation every four hours as needed albuterol HFA (PROVENTIL HFA, VENTOLIN HFA) 90 mcg/actuation inhaler Inhale 2 Puffs as instructed every 4 hours as needed. 1 Each 03/30/2024 Active Start: 07-28-2017 End: 11-15-2022 take 2.5 mg by inhalation every four hours as needed albuterol (PROVENTIL) 2.5 mg /3 mL (0.083 %) nebulizer solution Use 3 mL via nebulizer every 4 hours as needed for wheezing/shortness of breath. 720 mL 11/15/2022 Active Comment on above: Inhale 2 Puffs as in structed every 4 hours as needed for Wheezing/Shortness of Breath or Cough. Use via nebulizer ev rashawn 4 hours as needed for Wheezing/Shortness of Breath. Inhale 2 Puffs as in structed every 4 hours as needed. Use 3 mL via nebuliz er every 4 hours as needed for wheezing/shortness of breath. albuterol 90 mcg/inh inhalation powder (3 sources) Start: take 1 puff(s) by inhalation every four hours as needed albuterol 90 mcg/inh inhalation powder 1 puff(s), Inhalation, q4h, PRN as needed, # 1 EA, 0 Refill(s) Start Date: 07/07/19 Status: Ordered amoxicillin 875 mg / clavulanate 125 mg oral tablet (1 source) Penicillin-class Antibacterial Start: End: take 1 tablet by mouth twice daily amoxicillin-clavul anic acid (AUGMENTIN) 875-125 mg per tablet Indications: Non-recurrent acute suppurative otitis media of both ears without spontaneous rupture of tympanic membranes Take 1 tablet by mouth twice daily for 7 days. 14 tablet 0 05/01/2022 05/08/2022 Active Comment on above: Take 1 tablet by riley twice daily for 7 days. benzonatate 100 mg oral capsule (4 sources) Non-narcotic Antitussive Start: End: take 1 capsule by mouth every eight hours as needed for cough and cough benzonatate (TESSALON PERLES) 100 mg capsule Indications: Acute cough Take 1 capsule by mouth three times a day as needed for up to 7 days. 21 capsule 0 03/28/2024 04/04/2024 Active Start: 12-22-2023 End: 04-07-2024 take 1 capsule by mouth three times daily as needed for cough Benzonatate 200 mg capsule Discontinued 200 mg PO THREE TIMES A DAY as needed for cough 14 0 December 22, 2023 12:00am April 07, 2024 11:29am brompheniramine maleate 0.4 mg/ml / dextromethorphan hydrobromide 2 mg/ml / pseudoephedrine hydrochloride 6 mg/ml oral solution (18 sources) alpha-Adrenergic Agonist, Uncompetitive K-nviiuv-Q-aspartate Receptor Antagonist, Sigma-1 Agonist Start: 06-23-2024 End: 2024 take 5 mL by mouth four times daily as needed Pmxhyjbaysmrbhm-Wuyoycryi-CJ (BROMFED DM) 2-30-10 mg/5 mL syrup Indications: Common cold virus Take 5 mL by mouth four times a day as needed. 118 mL 06/23/2024 2024 Discontinued Start: 11-08-2022 End: 03-31-2023 take 5-10 mL by mouth every six hours as needed Qfkvftjqwaopbsp-Tofutlslj-TM (BROMFED DM ) 2-30-10 mg/5 mL syrup Take 5-10 ml po q6h prn 120 mL 0 11/08/2022 03/31/2023 Discontinued (Course of therapy completed) Comment on above: Take 5-10 ml po q6h prn cefdinir 300 mg oral capsule (3 sources) Cephalosporin Antibacterial Start: 02-07-2024 End: 02-14-2024 take 1 capsule by mouth twice daily cefdinir (OMNICEF) 300 mg capsule Indications: Acute otitis media, bilateral Take 1 capsule by mouth two times a day for 7 days. 14 capsule 0 02/07/2024 02/14/2024 Active Start: 08-07-2022 End: 08-14-2022 take 1 capsule by mouth twice daily cefdinir (OMNICEF) 300 mg capsule Take 1 capsule by mouth twice daily for 7 days. 14 capsule 0 08/07/2022 08/14/2022 Active Comment on above: Take 1 capsule by mo ut twice daily for 7 days. cephalexin 500 mg oral capsule (12 sources) Cephalosporin Antibacterial Start: End: 5 take 1 capsule by mouth three times daily cephALEXin (KEFLEX) 500 mg capsule Take 1 capsule by mouth three times a day for 5 days. 15 capsule 10/21/2024 10/26/2024 Active Start: 07-04-2024 End: 07-11-2024 take 1 capsule by mouth twice daily cephALEXin (KEFLEX) 500 mg capsule Take 1 capsule by mouth two times a day for 7 days. 14 capsule 07/04/2024 07/11/2024 Active Start: 06-24-2024 End: 07-01-2024 take 1 capsule by mouth twice daily cephALEXin (KEFLEX) 500 mg capsule Take 1 capsule by mouth two times a day for 7 days. 14 capsule 06/24/2024 07/01/2024 Active Start: 09-16-2022 End: 12-19-2023 take 1 capsule by mouth twice daily Cephalexin 500 mg capsule Discontinued 500 mg PO TWICE A DAY 14 0 September 16, 2022 1:00am December 19, 2023 8:52am Vaginal irritation Other specified noninflammatory disorders of vagina Start: 11-26-2021 End: 12-03-2021 take 1 tablet by mouth twice daily Keflex use cephalexin Dose : 500 mg =, Oral, BID, X 7 day(s), # 13 tab(s), 0 Refill(s), 12/03/21 20:14:00 EST, 104.5 Start Date: 11/26/21 Stop Date: 12/03/21 Status: Ordered Comment on above: take [address] [facility] twice a day until finished cetirizine hydrochloride 10 mg oral tablet (20 sources) Histamine-1 Receptor Antagonist Start: 2 take 1 tablet by mouth once daily cetirizine (ZYRTEC) 10 mg tablet Take 1 tablet by mouth once daily. 30 tablet 04/23/2022 Active Comment on above: [facility]ide 25 mg oral capsule (8 sources) Histamine-1 Receptor Antagonist Start: 0 Benadryl 25 mg oral capsule Dose : 25 mg = 1 cap(s), Oral, QID, PRN for itching, # 30 cap(s), 0 Refill(s), Itching Start Date: 12/28/19 Status: Ordered doxycycline hyclate 100 mg oral capsule (20 sources) Tetracycline-class Drug Start: End: doxycycline hyclate (VIBRAMYCIN) 100 mg capsule 10/25/2024 Active Start: 02-13-2024 End: 02-20-2024 take 1 tablet by mouth twice daily doxycycline monohydrate 100 mg tablet Indications: Recurrent acute suppurative otitis media without spontaneous rupture of left tympanic membrane Take 1 tablet by mouth two times a day for 7 days. 14 tablet 0 02/13/2024 02/20/2024 Active Start: 11-11-2022 End: 11-16-2022 take 1 tablet by mouth twice daily doxycycline monohydrate 100 mg tablet Take 1 tablet by mouth twice daily for 5 days. 10 tablet 0 11/11/2022 11/16/2022 Active Start: 07-09-2021 End: 07-16-2021 take 1 capsule by mouth twice daily Doxycycline Monohydrate 100 mg capsule Discontinued 100 mg PO TWICE A DAY 14 7 0 July 09, 2021 12:00am July 15, 2021 12:00am July 16, 2021 12:01am Comment on above: Take 1 tablet by riley th twice daily for 5 days. fluconazole 150 mg oral tablet (17 sources) Azole Antifungal Start: 02-14-2025 End: 02-14-2025 fluconazole (DIFLUCAN) 150 mg tablet Take 1 tablet by mouth one time only for 1 dose. Repeat dose in 3 days. 2 tablet 02/14/2025 02/14/2025 Active Start: 12-27-2024 End: 12-27-2024 fluconazole (DIFLUCAN) 150 m g tablet Take 1 tablet by mouth one time only for 1 dose. Repeat dose in 3 days. 2 tablet 12/27/2024 12/27/2024 Active Start: 12-08-2024 End: 12-10-2024 take 1 tablet by mouth once daily fluconazole (DIFLUCAN) 150 mg tablet Take 1 tablet by mouth once daily for 1 day. 1 tablet 12/09/2024 12/10/2024 Active Start: 11-02-2024 End: 11-03-2024 take 1 tablet by mouth once daily fluconazole (DIFLUCAN) 150 mg tablet Take 1 tablet by mouth once daily for 1 day. 1 tablet 11/02/2024 11/03/2024 Active Start: 06-23-2024 End: 06-23-2024 fluconazole (DIFLUCAN) 150 m g tablet Indications: Vaginal discharge Take 1 tablet by mouth one time only for 1 dose. Repeat in 3 days as needed. 2 tablet 06/23/2024 06/23/2024 Active Start: 07-10-2022 End: 10-02-2022 Fluconazole (Diflucan) 150 m g tablet Discontinued 150 mg PO Every 3 Days 2 3 July 10, 2022 12:00am October 02, 2022 10:56am Start: 03-21-2022 End: 04-18-2022 take 1 tablet by mouth every other day Fluconazole 150 mg tablet Discontinued 150 mg PO .COMPLEX 3 March 21, 2022 12:00am April 18, 2022 10:52am 150 mg PO take one po every other day X 3 doses hydrocortisone 10 mg/ml / neomycin 3.5 mg/ml / polymyxin b 30370 unt/ml otic suspension (1 source) Aminoglycoside Antibacterial, Polymyxin-class Antibacterial, Corticosteroid Start: 02-13-2024 End: 02-18-2024 wyduqtwc-gyehtgxsw-sqcfwfwhr isone (CORTISPORIN) 3.5-10,000-1 mg/mL-unit/mL-% otic suspension Indications: Recurrent acute suppurative otitis media without spontaneous rupture of left tympanic membrane Use 3 Drops in the left ear four times daily for 5 days. 10 mL 0 02/13/2024 02/18/2024 Active Lidocaine Viscous 2% mucous membrane solution (1 source) Start: 11-26-2021 End: 12-03-2021 Lidocaine Viscous 2% mucous membrane solution 0.1 gram(s) Dose = 5 mL, Topical, TIDAC, PRN topical, X 7 day(s), # 20 mL, 0 Refill(s) Start Date: 11/26/21 Stop Date: 12/03/21 Status: Ordered meclizine hydrochloride 12.5 mg oral tablet (20 sources) Antiemetic Start: 01-21-2022 End: 03-31-2023 take 1 tablet by mouth twice daily meclizine (ANTIVERT) 12.5 mg tab Indications: Dizziness Take 1 tablet by mouth twice daily. 20 tablet 0 01/21/2022 03/31/2023 Discontinued (Course of therapy completed) Comment on above: Take 1 tablet by mouth twice daily. 24 hr metFORMIN hydrochloride 500 mg extended release oral tablet (20 sources) Biguanide Start: 04-09-2024 End: 04-01-2025 take 1 tablet by mouth once daily at breakfast metFORMIN ER (GLUCOPHAGE XR) 500 mg 24 hr tablet Indications: Type 2 diabetes mellitus without complication, without long-term current use of insulin (HCC) Take 1 tablet by mouth daily with breakfast. 90 tablet 03/02/2025 04/01/2025 Active Start: 10-26-2021 End: 02-06-2022 take 1 tablet by mouth once daily Metformin 500 mg tablet Discontinued 500 mg PO DAILY November 08, 2021 1:00am February 06, 2022 2:07pm Start: 08-17-2021 End: 05-01-2022 take 1 tablet by mouth once daily at breakfast metFORMIN ER (GLUCOPHAGE XR) 500 mg 24 hr tablet Indications: Type 2 diabetes mellitus without complication, without long-term current use of insulin (HCC) Take 1 tablet by mouth daily with breakfast. 30 tablet 11 08/17/2021 05/01/2022 Discontinued (Discontinued by Patient) Comment on above: Take 1 tablet by riley th daily with breakfast. metroNIDAZOLE 500 mg oral tablet (20 sources) Nitroimidazole Antimicrobial Start: 10-25-19 End: 12-17-19 take 1 tablet by mouth twice daily metroNIDAZOLE (FLAGYL) 500 mg tablet Take 1 tablet by mouth two times a day for 7 days. 14 tablet 12/09/2024 12/16/2024 Active Start: 07-03-2024 End: 07-10-2024 take 1 tablet by mouth twice daily metroNIDAZOLE (FLAGYL) 500 mg tablet Indications: BV (bacterial vaginosis) Take 1 tablet by mouth two times a day for 7 days. 14 tablet 07/03/2024 07/10/2024 Active Start: 06-24-2024 End: 07-01-2024 take 1 tablet by mouth twice daily metroNIDAZOLE (FLAGYL) 500 mg tablet Take 1 tablet by mouth two times a day for 7 days. 14 tablet 06/24/2024 07/01/2024 Active Start: 01-04-2023 End: 01-11-2023 take 1 tablet by mouth twice daily metroNIDAZOLE (FLAGYL) 500 mg tablet Take 1 tablet by mouth twice daily for 7 days. 14 tablet 0 01/04/2023 01/11/2023 Active Start: 07-10-2022 End: 10-02-2022 take 1 tablet by mouth twice daily Metronidazole 500 mg tablet Discontinued 500 mg PO TWICE A DAY 14 7 3 July 10, 2022 12:00am October 02, 2022 10:56am Start: 04-18-2022 End: 05-01-2022 take 1 tablet by mouth twice daily Metronidazole 500 mg tablet Discontinued 500 mg PO TWICE A DAY 14 7 0 April 18, 2022 12:00am April 24, 2022 12:00am April 25, 2022 12:03am Start: 03-27-2022 End: 04-03-2022 take 1 tablet by mouth twice daily Metronidazole 500 mg tablet Discontinued 500 mg PO TWICE A DAY 14 7 0 March 27, 2022 12:00am April 02, 2022 12:00am April 03, 2022 12:03am Comment on above: Take 500 mg by mouth twice daily. Take 1 tablet by riley th twice daily for 7 days. miconazole nitrate 40 mg/ml vaginal cream (2 sources) Azole Antifungal Start: 11-02-2024 End: 11-05-2024 Miconazole Nitrate (MONISTAT 3) 200 mg/5 gram (4 %) crea Use 1 Applicator vaginally once daily for 3 days. 25 g 11/02/2024 11/05/2024 Active naproxen 250 mg oral tablet (20 sources) Nonsteroidal Anti-inflammatory Drug Start: 06-17-2023 End: 06-27-2023 naproxen 250 mg oral tablet Dose : 250 mg = 1 tab(s), Oral, BID, X 10 day(s), # 20 tab(s), 0 Refill(s), 06/27/23 3:25:00 AM EDT Start Date: 06/17/23 Stop Date: 06/27/23 Status: Ordered Start: 06-19-2022 End: 06-26-2022 take 1 tablet by mouth once, then take 1 tablet by mouth twice daily Anaprox-DS 550 mg oral tablet Dose : 550 mg = 1 tab(s), PO, BID, X 7 day(s), # 14 tab(s), 0 Refill(s), 06/26/22 12:51:00 EDT, Pain in both legs Start Date: 06/19/22 Stop Date: 06/26/22 Status: Ordered Start: 07-07-2019 End: 04-09-2024 take 1 tablet by mouth twice daily at mealtime naproxen (NAPROSYN) 500 mg tablet Indications: Pain in both lower extremities Take 1 tablet by mouth twice daily with meals. Take with food. 60 tablet 1 07/23/2022 04/09/2024 Discontinued (Course of therapy completed) Comment on above: Take 1 tablet by riley th twice daily with meals. Take with food. ondansetron 4 mg oral tablet (20 sources) Serotonin-3 Receptor Antagonist Start: 2 End: 3 take 1 tablet by mouth every eight hours as needed for nausea ondansetron orally disintegrating (ZOFRAN ODT) 4 mg disintegrating tablet Indications: Nausea and vomiting, unspecified vomiting type Take 1 tablet by mouth every 8 hours as needed for nausea/vomiting. 20 tablet 0 01/21/2022 03/31/2023 Discontinued (Course of therapy completed) Start: 11-29-2019 End: 06-22-2023 take 1 tablet by mouth every eight hours Zofran ODT use ondansetron oral tablet, disintegrating Dose : 4 mg =, Oral, q8h, # 30 tab(s), 0 Refill(s) Start Date: 06/17/23 Stop Date: 06/22/23 Status: Ordered Comment on above: Take 1 tablet by riley th every 8 hours as needed for nausea/vomiting. oseltamivir 75 mg oral capsule (1 source) Neuraminidase Inhibitor Start: 11-06-19 End: 11-11-19 Tamiflu 75 mg oral capsule Dose : 75 mg = 1 cap(s), Oral, BID, X 5 day(s), # 10 cap(s), 0 Refill(s), 11/11/24 8:00:00 PM EST, Pharmacy: [facility]/pharmacy #[id number], 165.5, cm, 11/05/24 22:02:00 EST, Height, kg, 11/05/24 22:02:00 EST, Dosing Weight Start Date: 11/06/24 Stop Date: 11/11/24 Status: Ordered Quantity: 10.0 Unit: cap(s) Repeat number: 1 predniSONE 20 mg oral tablet (3 sources) Start: 11-15-19 End: 11-19-19 take 2 tablets by mouth once daily at mealtime predniSONE (DELTASONE) 20 mg tablet Indications: Mild intermittent asthma with acute exacerbation Take 2 tablets by mouth once daily for 4 days. Take daily with food. 8 tablet 0 11/15/2022 11/19/2022 Active Start: 04-19-2022 End: 04-28-2022 predniSONE (DELTASONE) 10 mg tablet Take 4 tabs daily for 3 days, then 2 tabs daily for 3 days, then 1 tab daily for 3 days with food. 21 tablet 0 04/19/2022 04/28/2022 Active Comment on above: Take 4 tabs daily fo r 3 days, then 2 tabs daily for 3 days, then 1 tab daily for 3 days with food. Take [address] [facility] once daily for 4 days. Take daily with food. triamcinolone acetonide 0.25 mg/ml topical cream (5 sources) Corticosteroid Start: 06-29-2023 End: 07-06-2023 triamcinolone (KENALOG) 0.025 % cream Indications: Skin irritation Apply to affected area two times a day for 7 days. 15 g 0 06/29/2023 07/06/2023 Active Start: 04-23-2022 End: 05-07-2022 triamcinolone acetonide (IAIN ALOG) 0.1 % cream Apply 1 application to affected area three times daily for 14 days. Apply sparingly to area for rash/itching. 80 g 0 04/23/2022 05/07/2022 Active Comment on above: Apply 1 application to affected area three times daily for 14 days. Apply sparingly to area for rash/itching. Apply to affected ar ea two times a day for 7 days. Completed/Discontinued Medications Medication Drug Class(es) Dates Sig (Normalized) Sig (Original) acetaminophen 325 mg / HYDROcodone bitartrate 5 mg oral tablet (8 sources) Opioid Agonist Start: 08-14-2021 End: 11-08-2021 Hydrocodone-Acetami nophen 5-325 mg tablet Discontinued 1 {tbl} PO EVERY 6 HOURS as needed for pain 10 3 0 August 14, 2021 November 08, 2021 3:04pm Back pain Dorsalgia, unspecified Start: 08-14-2021 End: 11-08-2021 take 1 tablet by mouth every six hours Hydrocodone-Acetaminophen Discontinued 1 TABLET PO EVERY 6 HOURS 10 3 August 14, 2021 November 08, 2021 3:04pm celecoxib 200 mg oral capsule (8 sources) Nonsteroidal Anti-inflammatory Drug Start: 06-28-2020 End: 09-06-2020 take 1 capsule by mouth once daily Celecoxib (Celebrex) 200 mg capsule Discontinued 200 mg PO DAILY 28 10June 28, 2020 12:00am September 06, 2020 10:55am Do not take in conjunction with other NSAIDs Tylenol is okay clindamycin 300 mg oral capsule (9 sources) Lincosamide Antibacterial Start: 06-16-2023 End: 04-09-2024 take 1 capsule by mouth three times daily clindamycin (CLEOCIN) 300 mg capsule Indications: Pain, dental Take 1 capsule by mouth three times daily. 15 capsule 0 06/16/2023 04/09/2024 Discontinued (Course of therapy completed) Comment on above: Take [address] [facility] three times daily. cyclobenzaprine hydrochloride 10 mg oral tablet (1 source) Muscle Relaxant Start: 07-21-2021 End: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 Reactive Repeatedly reactive samples must be confirmed according to CDC recommended confirmatory algorithms. The subresults for either HIVAG or AHIV can be used as an aid in the selection of the confirmation algorithm for reactive samples. Send out specimens with Reactive results to [facility] for confirmation. Order the HIV antibody detection and differentiation: [id number] Performed By: #### L 509.8002, L3890.6006, L3400.1610, L3890.6301, L3890.6102 ####[facility] [address] [place], [place], [id number] Hepatitis C Antibodyon 03-24 Hepatitis C Ab Non-Reactive Normal Nonreactive [facility] Comment on above: Result Comment: Reac tive: Presumptive evidence of antibodies to HCV. Follow CDC recommendations for supplemental testing. Non-Reactive: Antibodies to HCV were not detected; does not exclude the possibility of exposure to HCV Reactive Results are presumptive evidence of antibodies to HCV. Follow CDC recommendations for supplemental testing. Order confirmation testing: HCV Quant by PCR testing - HCVPCR #[id number] Non Reactive: < 0.8 Equivocal: >/= 0.8 to < 1.0 Reactive: >/= 1.0 The CDC requires that a reactive/equivocal HCV antibody result be sent out for confirmation. HCV Quant by PCR testing. Performed By: #### L 509.8002, L3890.6006, L3400.1610, L3890.6301, L3890.6102 ####[facility] [address] [place], [address] L3890.6102on 03-24-2025 HEP B Surf Ag Non-Reactive Normal Nonreactive [facility] Comment on above: Result Comment: Reac tive: Presumptive evidence of HBV. Repeatedly reactive samples must be confirmed using a neutralization test (Elecsys HBsAg Confirmatory Test) Non-Reactive: HBsAg not detected; does not exclude the possibility of exposure to HBV Performed By: #### L 509.8002, L3890.6006, L3400.1610, L3890.6301, L3890.6102 ####[facility] [address] [place], [address] Laboratory - Chemistry and C hemistry - challengeOrdered By: Isa Chow on 03-24-2025 HCG ( test) Ql (U) Negative [facility] Laboratory - CytologyOrdered By: Isa Chow on 03-24-2025 Metal Furrer Cyto stain Nom (Cvx/Vag) [ID] Comment . [facility] Comment on above: Jefry Fox ytologist ([facility]) Laboratory - Microbiology an d Antimicrobial susceptibilityOrdered By: Isa Chow on 03-24-2025 HBV surface Ag Ql (S) Non-Reactive Nonreactive [facility] Comment on above: Reactive: Presumptiv e evidence of HBV. Repeatedly reactive samples must be confirmed using a neutralization test (Elecsys HBsAg Confirmatory Test)Non-Reactive: HBsAg not detected; does not exclude the possibility of exposure to HBV Laboratory - Miscellaneous t estsOrdered By: Isa Chow on 03-24-2025 Service comment (Unsp spec) [Interp] . . [facility] Neisseria gonorrhoeae nuclei c acid detection by amplified probe techniqueOrdered By: Isa Chow on 03-24-2025 N. gonorrhoeae DNA VIRGILIO+probe Ql (Unsp spec) Negative Negative [facility] Comment on above: Performed at: =[address] [id number] Director: Annita Newberry MD, Phone: [phone] No Panel InformationOrdered By: Isa Chow on 03-24-2025 Pap Smear Specimen Adequacy Comment . [facility] Comment on above: Satisfactory for chelsy luation. Endocervical and/or squamous metaplasticcells (endocervical component) are present. HIV (1&2) Antibody Non-Reactive Nonreactive [facility] Comment on above: Non-ReactiveReactive Repeatedly reactive samples must be confirmed according to CDC recommended confirmatory algorithms. The subresults for either HIVAG or AHIV can be used as an aid in the selection of the confirmation algorithm for reactive samples.Send out specimens with Reactive results to [facility] for confirmation.Order the HIV antibody detection and differentiation: #[id number] POC Bacterial Vaginitis (Rapid) Negative [facility] POC Trichomonas (Rapid) Negative [facility] Anthropology Faculty Member Office Visit Reporton 03-24-2025 Anthropology Faculty Member Office Visit Report [facility] [address], [address] [place] [address] OFFICE VISIT Date of Service: 03/24/25 MR#: [id number] Acct: [id number] Name: DONNA MCMAHON Rep #: [id number] : 2000 Provider: MANNY Pathak Age/Sex: 24/F Location: [facility] Status: Signed Intake Vital Signs 06/17/24 09:03 03/24/25 08:39 Height 5 ft 5 in 5 ft 5 in Weight: 241 lb 2 oz 246 lb BMI 40.1 40.9 BP 124/84 H 137/89 H Intake Visit Reasons: bleeding with intercourse Chief Complaint: PostCoital Bleeding Insurance Claims Analyst Required: No Is patient in pain?: No Allergies vancomycin Allergy (Verified 03/24/25 08:43) Anaphylaxis Medications ???Medication ???Instructions ???Recorded ???Confirmed ???Type albuterol sulfate 90 mcg/actuation 2 inh inhalation Q4-6H PRN 12/2103/24/25 History breath activated powder inhaler,sensor acyclovir 400 mg tablet 400 mg PO TID 30 days #90 tabs 03/24/25 Rx Is last menstrual period known: No Post menopausal: No PFSH Medical History (Updated 03/24/25 @ 10:38 by MANNY Montoya) Postcoital bleeding Diabetes PCOS (polycystic ovarian syndrome) Asthma Surgical History History of strabismus surgery Family History Unknown Diabetes Hyperlipidemia Social History adopted: No household members: none and other housing: apartment current occupational status: employed current occupation: [employer] pets and animals: No history of recent travel: No sexually active: Yes Smoking Status: Never smoker alcohol intake: never substance use type: does not use what type of physical activity do you participate in: none do you feel safe at home: Yes additional social history: single- HPI bleeding with intercourse Details: DONNA MCMAHON is a 24 year old who presents for bleeding with intercourse. She reports she would have sex and then start to bleed; this would then turn brown. Would bleed for a couple days. She reports then when she would not have sex she did not have the bleeding until she had intercourse again and it starts back up. She reports this has been going on for a couple months. Denies fevers/chills. Denies foul odor, discharge noted today however had been treating herself for yeast infections. She has not had depo shot since 08/2024. She is not using any other form of protection at this time. She has not taken any tests at home. Her LMP was the beginning of September; ended the second week. History 0 Elective abortions Hx Para Spontaneous abortions Hx # Term Pregnancies Ectopic pregnancies Hx # Pregnancies Multiple births # of living children ROS Const ROS Unobtainable: All systems reviewed are unremarkable except as noted in H Constitutional: Denies body ache, chills, fatigue or fever(s) : Denies hematuria, pelvic pain, vaginal discharge, vaginal dryness, vaginal odor or vaginal pruritus (previous not current) Exam Const General: cooperative, healthy appearing, comfortable, no acute distress, well groomed and well hydrated Nutritional Appearance: well nourished Orientation: alert, awake and oriented x3 HENMT Head: normal to inspection and normocephalic Ears: hearing grossly normal bilaterally and external ears normal Nose: external nose normal Face and sinus: normal facial exam Eyes General: appearance normal, both eyes and all related structures Resp Effort Inspection: normal respiratory effort, able to speak in complete sentences and symmetric chest movement GI Inspection: normal to inspection Palpation: soft and no hepatosplenomegaly General: bladder normal to palpation External Female Exam: normal external appearance and normal appearance of the urethra Urethra: normal appearance of the urethra Speculum Exam - Vagina: normal appearance of the vagina, normal vaginal discharge, no lesions and nontender Speculum Exam - Cervix: normal appearance of the cervix (brown blood present in vagina; no active bleeding at cervix.), no lesions and no masses Bimanual Exam- Vagina Uterus: normal bimanual exam, uterine size normal, bladder normal to palpation, normal palpation and non-tender Bimanual Exam- Adnexa, other: normal adnexae, no masses, normal and non-tender Pelvic Support: normal Skin General: no rashes or lesions noted Neuro General: patient alert, patient awake, patient oriented x3 and moves all extremities Psych Appearance: grossly normal Mental Status: mental status grossly normal Affect: normal affect Speech and Movement: speech and movement normal Attitude: cooperative Results Office Pr (more content not included)... Normal [facility] Serum herpes simplex virus 2 antibody assay by immunoassay (units/volume)Ordered By: Isa Chow on 03-24-2025 HSV 2 Ab IA Qn (S) Reactive High Non Reactive [facility] Comment on above: Please note refere nce interval changeCurrent guidelines and recommendations do not recommendroutine screening for HSV-2 in asymptomatic individuals,including those that are . The detection of HSV-2IgG antibodies in a single sample indicates previousexposure to HSV-2 but does not give information as to thesite of HSV infection or the timing of exposure. Thepredictive value of positive and negative results dependson the population's prevalence and the pretest likelihoodof HSV-2. HSV-2 IgG testing performed using the RocheElecsys HSV-2 IgG assay.Performed at: - Lab[address] [id number] Director: Hira Escalante PhD, Phone: [phone] Syphilis Antibodieson 2024 Syphilis Abs Non-Reactive Normal Nonreactive [facility] Comment on above: Performed By: #### L 509.8002, L3890.6006, L3400.1610, L3890.2091, L3890.2151 ####[facility] [address] [place], [place], [address] Amber 03-19-2025 CR Telephone (FAMPWS) DNONA MCMAHON ([id number]) 2 F Date Time Provider Department 03/19/25 YING PIÑA During your visit today, we recorded the following information about you: Julia Hawk RN 03/19/2025 10:39 AM Signed Patient calls to request an order for diflucan for yeast infection. Previously ordered by [facility]. Patient asking if provider would send in prescription as when she goes to [facility] it costs a lot of money. Patient aware provider is out until Friday and that prescription might not be sent as it would be up to provider. Please review and advise, JOSH MarianologYing anglin APRN.CNP 03/21/2025 7:06 AM Signed Patient is overdue for her appointment and never followed up for her breast abscess. She needs to come in for an appointment. Ying Piña APRN.Hoda Caal RN 03/21/2025 6:48 PM Signed Pt called and is notified of providers message and instructions. Pt states her insurance doesn't accept us any more. She states she never came back in because they wouldn't let her schedule to come back in. She states she hasn't had any luck yet trying to find another provider in the area. She was hoping provider might call in medication for her. JOSH PeacelogYing anglin APRN.CNP 03/22/2025 7:13 AM Signed She has not had labs in a year. She has diabetes and her yeast infection could be caused by blood sugars being out of control therefore I need to assess her before I order medications. She needs to find out who takes her insurance and schedule appointment. She can get over the counter monistat that can help with yeast infection. Ying Piña APRN.Amy Mckeon LPN 03/22/2025 8:12 AM Signed Telephone call placed to patient. Voices understanding to all below. Amy Rendon LPN Allergies As of Date: 03/19/2025 Noted Allergy Reaction AMOXICILLIN-POT CLAVULANATE 05/03/2022 2 - Rash VANCOMYCIN 11/08/2017 12 - Shortness of Breath Date Reviewed: 03/02/2025 Reviewed by: Amy Rendon LPN - Fully Assessed Reason for Visit: Patient Question [1477] Prescriptions as of 03/22/2025 - acyclovir (ZOVIRAX) 400 mg tablet Take 400 mg by mouth three times a day. - metFORMIN ER (GLUCOPHAGE XR) 500 mg 24 hr tablet Take 1 tablet by mouth daily with breakfast. - doxycycline hyclate (VIBRAMYCIN) 100 mg capsule - albuterol HFA (PROVENTIL HFA, VENTOLIN HFA) 90 mcg/actuation inhaler Inhale 2 Puffs as instructed every 4 hours as needed. - blood sugar diagnostic (BLOOD GLUCOSE TEST) test strip Test blood sugar(s) one times daily. Dx: Type 2 DM - Controlled E11.9 Insulin: No - albuterol (PROVENTIL) 2.5 mg /3 mL (0.083 %) nebulizer solution Use 3 mL via nebulizer every 4 hours as needed for wheezing/shortness of breath. - cetirizine (ZYRTEC) 10 mg tablet Take 1 tablet by mouth once daily. - Lancets lancets Test blood sugar(s) one times daily. Dx: Type 2 DM - Controlled E11.9 Insulin: No Problem List As Of Date 03/19/2025 Noted Resolved Acute bilateral low back pain with bilateral sc*08/27/2021 Type 2 diabetes mellitus without complication, *09/17/2021 Obesity, Class II, BMI 35-39.9 [E66.812] 03/03/2023 Obesity, Class I, BMI 30-34.9 [E66.811] 03/31/2023 Encounter Status:Closed by AMY RENDON on 03/22/25 Normal [facility] Bacteria Wnd Culton 03-02-20 25 Bacteria identified Cx Nom (Wound) ORGANISM ID: 1 Rare Citrobacter koseri ORGANISM ID: 2 Rare skin nicky GRAM STAIN: Rare Gram positive cocci Rare Gram positive bacilli Rare Polymorphonuclear leukocytes ORGANISM ID: 1 (CITROBACTER KOSERI) ------ ANTIBIOTIC INTERPRETATION TARYN STATUS REFERENCE RANGE ------ Ampicillin R >=32 F Susceptible <=8 , Intermediate >8 , Resistant >16 Ceftriaxone S <=1 F Susceptible <=1 , Intermediate >1 , Resistant >=4 Cefepime S <=1 F Susceptible <=2 , Susceptible-Dose Dependent >2 , Resistant >=16 Ertapenem S <=0.5 F Susceptible <=0.5 , Intermediate >.5 , Resistant >1 Meropenem S <=0.25 F Susceptible <=1 , Intermediate >1 , Resistant >2 Ampicillin/Sulbact S 4 F Susceptible <=8 , Intermediate >8 , Resistant >16 Piperacillin/Tazobac S <=4 F Susceptible <16 , Susceptible-Dose Dependent >=16 , Resistant >=32 Gentamicin S <=1 F Susceptible <=2 , Intermediate >2 , Resistant >=8 Tobramycin S <=1 F Susceptible <4 , Intermediate >=4 , Resistant >=8 Trimeth sulfameth S <=20 F Susceptible <=40 , Resistant >40 Ciprofloxacin S <=0.25 F Susceptible <0.5 , Intermediate >=.5 , Resistant >=1 Abnormal [facility] Comment on above: Performed By: #### 6 462-6 ####[facility] [id number] [address] [place] CNOVon 03-02-2025 CNOV Office Visit (FAMPWS ) DONNA MCMAHON ([id number]) 2 F Date Time Provider Department 03/02/25 9:00 AM YING PIÑA During your visit today, we recorded the following information about you: Temperature Pulse Respiration Blood pressure 98.1 degrees 97/minute 18/minute 132/98 Weight 112.7 kg Ying Piña APRN.DIVEMASTER 03/02/2025 10:08 AM Signed 03/02/2025 Patient presents with: Derm Problem: Abscess to right breast that had been drained last week by the [facility]. It was getting better but now getting worse. Recording using Nestio software for draft documentation of the visit was discussed with the patient/authorized wire rope sales representative; all questions welcomed and answered. Patient/authorized wire rope sales representative agreed to proceed SUBJECTIVE: This is a 24 year old that is here today for Above Complaints.. Right Breast Abscess: - Seen in the ER last week for a right breast abscess; underwent drainage. - Started on doxycycline for 10 days; currently one week into treatment. - Initially improved post-drainage, but abscess has returned to original size. - Reports burning pain; denies current drainage, fevers, or chills. - Previous similar episodes described as little pimples that resolved spontaneously. - Denies culture taken during ER visit; ultrasound performed prior to drainage. Diabetes Mellitus: - Out of metformin for a while. PAST MEDICAL HISTORY Diagnosis Date Mild intermittent asthma without complication (HCC) PCOS (polycystic ovarian syndrome) ALLERGIES Amoxicillin-Pot Clavulanate and Vancomycin MEDICATIONS Current Outpatient Medications Medication Sig acyclovir (ZOVIRAX) 400 mg tablet Take 400 mg by mouth three times a day. doxycycline hyclate (VIBRAMYCIN) 100 mg capsule metFORMIN ER (GLUCOPHAGE XR) 500 mg 24 hr tablet Take 1 tablet by mouth daily with breakfast. doxycycline hyclate (VIBRAMYCIN) 100 mg capsule Take 1 capsule by mouth two times a day for 5 days. albuterol HFA (PROVENTIL HFA, VENTOLIN HFA) 90 mcg/actuation inhaler Inhale 2 Puffs as instructed every 4 hours as needed. blood sugar diagnostic (BLOOD GLUCOSE TEST) test strip Test blood sugar(s) one times daily. Dx: Type 2 DM - Controlled E11.9 Insulin: No albuterol (PROVENTIL) 2.5 mg /3 mL (0.083 %) nebulizer solution Use 3 mL via nebulizer every 4 hours as needed for wheezing/shortness of breath. cetirizine (ZYRTEC) 10 mg tablet Take 1 tablet by mouth once daily. Lancets lancets Test blood sugar(s) one times daily. Dx: Type 2 DM - Controlled E11.9 Insulin: No No current facility-administered medications for this visit. Medications and allergies reviewed by this provider. SOCIAL HISTORY Social History Tobacco Use Smoking status: Never Smokeless tobacco: Never Vaping Use Vaping status: Never Used Substance Use Topics Alcohol use: Not Currently Drug use: Never REVIEW OF SYSTEMS All other reviewed and negative other than HPI. OBJECTIVE: BP 132/98 Pulse 97 Temp 36.7 ?C (98.1 ?F) Resp 18 Wt 112.7 kg (248 lb 6.4 oz) LMP 10/13/2024 (Approximate) SpO2 98% BMI 41.34 kg/m? . Vital signs reviewed by this provider. GENERAL: NAD, alert and oriented. BREASTS: Right medial breast with draining abscess, no significant erythema or increased warmth noted around the area. No TTP Dilated Retinal Exam Never done Depression Screening Never done Anxiety Screening Never done Pneumococcal Vaccine(1 of 2 - PCV) due on 2020 Cervical Cancer Screening Never done DTaP,Tdap,Td Vaccine(7 - Td or Tdap) due on 05/11/2024 Covid-19 Vaccine( season) Never done HbA1C due on 10/10/2024 Urine Albumin:Creatinine Ratio due on 01/06/2025 LDL Cholesterol due on 01/06/2025 Diabetic Foot Exam due on 04/09/2025 Influenza Vaccine(Season Ended) due on 05/30/2025 GC (Gonorrhea) Screening (18-24) due on 02/13/2026 Chlamydia Screening (18-24) due on 02/13/2026 Annual PCP Team Chronic Disease Visit due on 03/02/2026 Hepatitis B Vaccine Completed HPV Vaccine Completed Hepatitis C Screening Completed HIV Screening Completed Meningococcal B Vaccine Discontinued 1. Abscess of right breast (N61.1) - Abscess was previously drained in the ER; currently on doxycycline for 10 days, with 3 days remaining. - Noted burning sensation and pain; no fever or chills reported. - Performed culture of the drainage to identify any specific infection. - Extended doxycycline treatment for an additional 5 days. - Advised warm compresses twice daily to the affected area. - Instructed to monitor for increased redness, heat, or size of the abscess and to return to the ER if these symptoms occur. - Follow-up scheduled for Friday to re-evaluate the abscess and review culture results. 2. Type 2 diabetes mellitus without complication, without long-term current use of insulin (HCC) (E11.9) - Patient alonzo (more content not included)... Normal [facility] US BREAST RIGHT LIMITEDon US BREAST RIGHT LIMITED ORIGINAL FROM: [place] [id number] PROCEDURE FOR: DONNA MCMAHON [address] [place] [address] Home: PID#: [id number] Exam#: [id number] : 2000 Age: 24 TO: DONNA MCMAHON [address] [place] [address] Patient is self-referred. EXAMINATION: ULTRASOUND OF THE RIGHT BREAST 02/24/2025 11:06 am TECHNIQUE: Color flow and reyes scale targeted ultrasound of the right breast were performed. Permanently stored images were reviewed. COMPARISON: None. HISTORY: ORDERING SYSTEM PROVIDED HISTORY: Reason for Exam: Palpable mass right breast for several months with poss leaking from the lesion. FINDINGS: At the site of palpable clinical concern at 3 o'clock right breast 12 cm from the nipple there is a 2.3 x 2.2 x 2.4 cm slightly irregularly shaped hypoechoic mass with posterior acoustic enhancement with no vascularity, there is some low level internal echoes and septations. There is some associated skin thickening. No other visible abnormalities. IMPRESSION: Right breast lesion accounting for the palpable abnormality, this is consistent with an abscess, recommend clinical follow-up and a follow-up ultrasound in 6 months to document resolution. Lillie Mccain risk calculations, generated with the history provided, report this patient's 10 year risk and lifetime risk for developing breast cancer at 0.2% and 16.5%, respectively. Based on this assessment tool, if the patient's calculated lifetime risk is below 20%, then the patient is considered at average risk for developing breast cancer. If the patient's calculated lifetime risk is at or above 20%, then the patient is considered high risk for developing breast cancer and may be a candidate for supplemental breast MRI screening in addition to annual mammographic screening per the [employer] [employer]. BIRADS: BI-RADS: 3: Probably Benign RECALL: 6 month follow-up RECALL TYPE: US LETTER SENT: Probably Benign BI-RADS 3 Interpreted by: Ollie Santizo MD Preliminary Report By: Ollie Santizo MD Electronically signed By Ollie Santizo MD Dictated Date: 02/24/2025 11:25:17 AM Prelim Date: 02/24/2025 11:28:55 AM Sign Date: 02/24/2025 11:28:55 AM Ordering Provider: EMY PEREZ Landscape Foreman: BABS JADE RT (R, CT), [facility] letter sent: Probably Benign BI-RADS 3 Ultrasound BI-RADS: 3 Probably benign Normal [facility] BACTERIAL VAGINOSIS NAATon 0 02-13-2025 Lactobacillus crispatus+gasseri+mosley ii + Gardnerella vaginalis + Atopobium vaginae rRNA VIRGILIO+probe Ql (Vag fld) Not detected Normal Not detected [facility] Comment on above: Order Comment: Speci men Type: SWABOrdering Facility: [facility] Address: [address] [place] [address] Performed By: #### 3 6902-5, BVAMP ####[facility] [id number] [place] [address] [place] C. trachomatis+N. gonorrhoea e DNA VIRGILIO+probe Ql (Unsp spec)on 02-13-2025 C. trachomatis rRNA VIRGILIO+probe Ql (Unsp spec) Not detected Normal Not detected [facility] Comment on above: Order Comment: Speci men Type: SWABOrdering Facility: [facility] Address: [address] [place] [address] Performed By: #### 3 6902-5, BVAMP ####[facility] [id number] [place] [address] [place] N. gonorrhoeae rRNA VIRGILIO+probe Ql (Unsp spec) Not detected Normal Not detected [facility] Comment on above: Order Comment: Speci men Type: SWABOrdering Facility: [facility] Address: [address] [place] [address] Performed By: #### 3 6902-5, BVAMP ####[facility] [id number] [place] [address] [place] ITZ/TRICHOMONAS NAATon 0 02-13-2025 C. glabrata RNA VIRGILIO+probe Ql (Vag fld) Not detected Normal Not detected [facility] Comment on above: Order Comment: Speci men Type: SWAB Ordering Facility: [facility] Address: [address] [place] [address] Performed By: #### C VTV, BVAMP #### [facility] CLIA [id number] [address] [place] [address] [place] Itz sp DNA VIRGILIO+probe Ql (Vag fld) Detected Abnormal Not detected [facility] Comment on above: Order Comment: Speci men Type: SWAB Ordering Facility: [facility] Address: [address] [place] [address] Result Comment: The Itz species group target includes C. albicans, C. tropicalis, C. parapsilosis, and C. dubliniensis. Performed By: #### C VTV, BVAMP #### [facility] CLIA [id number] [address] [place] [address] [place] T. vaginalis DNA VIRGILIO+probe Ql (Unsp spec) Not detected Normal Not detected [facility] Comment on above: Order Comment: Speci men Type: SWAB Ordering Facility: [facility] Address: [address] [place] [address] Performed By: #### C VTV, BVAMP #### [facility] CLIA [id number] [address] [place] [address] [facility] CNOVon 02-13-2025 CNOV Office Visit (UCWSTR ) MCMAHON,DONNA Tran ([id number]) 2 F Date Time Provider Department 02/13/25 10:00 AM MICHELLE MCWILLIAMS [facility] During your visit today, we recorded the following information about you: Temperature Pulse Respiration Blood pressure 98.1 degrees 102/minute 18/minute 130/90 Weight Last Period 111 kg 10/13/24 Michelle Mcwilliams APRN.DIVEMASTER 02/13/2025 10:42 AM Signed [facility] Subjective Donna Marc Mcmahon is a 24 year old female. Patient presents with: Vaginal Problem: Cramping and bleeding and passing stringy blood clots during sex x 1 day Vagina feels irritated, no issues previous to sex yesterday Vaginal Problem Pertinent negatives include no chills or fever. Postcoital Spotting and Cramping: - Onset in 2020, initially presenting with significant bleeding and clot passage post-intercourse. - Diagnosed with a cervical tear by road grader operator; treated with an unspecified medication, resulting in symptom resolution. - Recent recurrence of spotting and cramping post-intercourse. - Associated nausea; denies fever, chills, emesis, or abdominal pain. - Last menstrual period: September (first or second week). - Last Depo-Provera injection: May; not currently using control. - Engages in sexual activity with multiple partners; inconsistent condom use. - Recent home test was negative. 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 Review of Systems Constitutional: Negative for chills and fever. Genitourinary: Positive for vaginal discharge and vaginal pain (during intercourse). Negative for difficulty urinating, dysuria, frequency, genital sores, hematuria and urgency. Constitutional: (-) fever, (-) chills Gastrointestinal: (+) nausea, (-) vomiting, (-) abdominal pain Genitourinary: (+) postcoital spotting, (+) postcoital cramping Objective BP 130/90 Pulse 102 Temp 36.7 ?C (98.1 ?F) Resp 18 Wt 111 kg (244 lb 11.4 oz) LMP 10/13/2024 (Approximate) SpO2 98% BMI 40.72 kg/m? PAST MEDICAL HISTORY Diagnosis Date - Mild intermittent asthma without complication (HCC) - PCOS (polycystic ovarian syndrome) PAST SURGICAL HISTORY Procedure Laterality Date - STRABISMUS SURG PT W SCAR EO MUSCL ALLERGIES Amoxicillin-Pot Clavulanate and Vancomycin MEDICATIONS - albuterol HFA (PROVENTIL HFA, VENTOLIN HFA) 90 mcg/actuation inhaler Inhale 2 Puffs as instructed every 4 hours as needed. - blood sugar diagnostic (BLOOD GLUCOSE TEST) test strip Test blood sugar(s) one times daily. Dx: Type 2 DM - Controlled E11.9 Insulin: No - albuterol (PROVENTIL) 2.5 mg /3 mL (0.083 %) nebulizer solution Use 3 mL via nebulizer every 4 hours as needed for wheezing/shortness of breath. - valACYclovir (VALTREX) 500 mg tablet Take 1,000 mg by mouth as needed (outbreaks). - cetirizine (ZYRTEC) 10 mg tablet Take 1 tablet by mouth once daily. - Lancets lancets Test blood sugar(s) one times daily. Dx: Type 2 DM - Controlled E11.9 Insulin: No - doxycycline hyclate (VIBRAMYCIN) 100 mg capsule (Patient not taking: Reported on 12/27/2024) - metFORMIN ER (GLUCOPHAGE XR) 500 mg 24 hr tablet Take 1 tablet by mouth daily with breakfast. 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 Genitourinary: General: Normal vulva. Exam position: Lithotomy position. Labia: Right: No rash, tenderness, lesion or injury. Left: No rash, tenderness, lesion or injury. Vagina: Normal. No vaginal discharge, erythema, tenderness, bleeding or lesions. Cervix: Erythema and cervical bleeding present. No discharge or lesion. General: No acute distress. : Cervical erythema, no cervical tear visualized. {1. Primary amenorrhea (N91.0) - Last menstrual period in September; last Depo-Provera injection in May. - Amenorrhea likely secondary to Depo-Provera use. - Discussed potential resumption of menses following discontinuation of Depo-Provera. 2. Vaginal spotting (N93.9) 3. Bleeding after intercourse (N93.0) - Noted erythema on cervical examination, no visible tears; potential source of bleeding. - Urine test negative. - Collected swabs for gonorrhea, chlamydia, yeast, bacterial vaginosis, and trichomonas. - Advised abstinence from intercourse until evaluation by OBGYN to prevent further cervical irritation. - Recommended follow-up with established OBGYN at [facility] (more content not included)... Normal [facility] UA DIP,URINE HCG (POC)on Beta HCG ( test) Ql (U) Negative Negative [facility] Comment on above: Location:[address], [address] Caddy Packer (POCT) Internal QC [place] [facility] Location:[address], [place], [address] [facility] POINT OF CARE [facility] BACTERIAL VAGINOSIS NAATon 0 12-27-2024 Lactobacillus crispatus+gasseri+mosley ii + Gardnerella vaginalis + Atopobium vaginae rRNA VIRGILIO+probe Ql (Vag fld) Not detected Normal Not detected [facility] Comment on above: Order Comment: Speci men Type: SWAB Ordering Facility: [facility] Address: [address] [place] [address] Performed By: #### C VTV, BVAMP #### [facility] CLIA [id number] [address] [place] [address] [place] Bacteria Ur Culton Bacteria identified Cx Nom (U) ORGANISM ID: 1 <10,000 CFU/ml Normal urogenital nicky Normal [facility] Comment on above: Performed By: #### 6 30-4 ####[facility] [id number] [place] [address] [place] ITZ/TRICHOMONAS NAATon 0 12-27-2024 C. glabrata RNA VIRGILIO+probe Ql (Vag fld) Not detected Normal Not detected [facility] Comment on above: Order Comment: Speci men Type: SWAB Ordering Facility: [facility] Address: [address] [place] [address] Performed By: #### C VTV, BVAMP #### [facility] CLIA [id number] [address] [place] [address] [place] Itz sp DNA VIRGILIO+probe Ql (Vag fld) Not detected Normal Not detected [facility] Comment on above: Order Comment: Speci men Type: SWAB Ordering Facility: [facility] Address: [address] [place] [address] Result Comment: The Itz species group target includes C. albicans, C. tropicalis, C. parapsilosis, and C. dubliniensis. Performed By: #### C VTV, BVAMP #### [facility] CLIA [id number] [address] [place] [address] [place] T. vaginalis DNA VIRGILIO+probe Ql (Unsp spec) Not detected Normal Not detected [facility] Comment on above: Order Comment: Speci men Type: SWAB Ordering Facility: [facility] Address: [address] [place] [address] Performed By: #### C VTV, BVAMP #### [facility] CLIA [id number] [address] [place] [address] [place] CNOVon 12-27-2024 CNOV Office Visit (UCWSTR ) DONNA MCMAHON ([id number]) 2 F Date Time Provider Department 12/27/24 3:30 PM TRACI BARKER [facility] During your visit today, we recorded the following information about you: Temperature Pulse Respiration Blood pressure 97.7 degrees 100/minute 16/minute 102/72 Weight 110.3 kg Traci Barker APRN.DIVEMASTER 12/27/2024 4:04 PM Signed [facility] Subjective Donna Mcmahon is a 24 year old female. Patient presents with: Urinary Problem: burning with urination, check for bv and yeast The history is provided by the patient. No teller vault was used. HPI Donna Mcmahon is a 24 year old female who presents today for CC of burning with urination and also having vaginal discharge Positive for Dysuria and Vaginal itch or discharge, Negative for Abdominal pain , Back/Flank pain, Bladder pressure, Blood in urine, Cloudy urine, Diarrhea, Fevers, Increase in frequency of urination, Malodorous urine, Sense of incomplete void, Urgency, and Vomiting Chance of : No Last intercourse: n/a Any self-treatment attempted: No Number of previous UTI's in last 6 months:0 Number of previous UTI's in last 12 months: 0 Aggravating Factors: voiding Alleviating Factors include none attempted. Patient states she was washing with anirudh dish soap to help with vaginal discharge Denies being sexually active, declines sti testing desires vaginal cultures. BP 102/72 Pulse 100 Temp 36.5 ?C (97.7 ?F) Resp 16 Wt 110.3 kg (243 lb 2.7 oz) LMP (LMP Unknown) SpO2 96% BMI 40.47 kg/m? Social History Tobacco Use Smoking status: Never Smokeless tobacco: Never Vaping Use Vaping status: Never Used Substance Use Topics Alcohol use: Not Currently Drug use: Never PAST MEDICAL HISTORY Diagnosis Date Mild intermittent asthma without complication PCOS (polycystic ovarian syndrome) I have confirmed and edited as necessary, the [facility] Review of Systems Constitutional: Negative for fever. Gastrointestinal: Negative for abdominal pain and nausea. Genitourinary: Positive for dysuria and vaginal discharge. Negative for decreased urine volume, difficulty urinating, genital sores, pelvic pain, urgency and vaginal pain. Objective BP 102/72 Pulse 100 Temp 36.5 ?C (97.7 ?F) Resp 16 Wt 110.3 kg (243 lb 2.7 oz) LMP (LMP Unknown) SpO2 96% BMI 40.47 kg/m? Physical Exam Vitals and nursing note reviewed. HENT: Head: Normocephalic and atraumatic. Eyes: Conjunctiva/sclera: Conjunctivae normal. Pupils: Pupils are equal, round, and reactive to light. Pulmonary: Effort: Pulmonary effort is normal. Abdominal: Palpations: Abdomen is soft. Abdomen is not rigid. Tenderness: There is no abdominal tenderness. There is no guarding or rebound. Musculoskeletal: Cervical back: Normal range of motion and neck supple. Skin: General: Skin is warm. Neurological: Mental Status: She is alert and oriented to person, place, and time. Declines exam will self swab {ASSESSMENT/PLAN: 1. Burning with urination - ICD9: 788.1, ICD10: R30.0 (primary diagnosis) acute - UA positive for proteinuria and glucosuria, not taking metformin - Send urine for culture Will call with culture results and treatment needed - UA DIP, URINE (POC) - BACTERIAL CULTURE, URINE 2. Acute vaginitis - ICD9: 616.10, ICD10: N76.0 Will self swab Treated today with fluconazole, will call if additional treatment indicated from testing. - ITZ/TRICHOMONAS NAAT - BACTERIAL VAGINOSIS NAAT History and Record Review External record(s) reviewed: prior outpatient record. Findings from review of outpatient records: previous urine culture negative, positive for bv and yeast on vaginal cultures Diagnosis and treatment plan were discussed and questions were answered to the patient's satisfaction. Pt acknowledged understanding of concepts and follow up plan. Specific signs and symptoms that would indicate the need for higher level of care were discussed in detail warranting prompt ER evaluation. LISA Gentile Tonya, APRN.CNP 12/27/2024 3:44 PM Signed Will send urine and vaginal cultures - will notify of results and treatment needed. Take fluconazole as ordered Follow up with Allergies As of Date: 12/27/2024 Noted Allergy Reaction AMOXICILLIN-POT CLAVULANATE 05/03/2022 2 - Rash VANCOMYCIN 11/08/2017 12 - Shortness of Breath Date Reviewed: 12/27/2024 Reviewed by: Esther Neri MA - Fully Assessed Reason for Visit: Urinary Problem [252] Cmt: burning with urination, check for bv and yeast Primary Visit Diagnosis:Burning with urination [R30.0] Other Visit Diagnosis:Acute vaginitis [N76.0] Order(s):UA DIP, URINE (POC) [[id number]] Order #: [id number]. #:[id number] BACTERIAL CULTURE, URINE [SQURCUL] Order #: [id number]. #:[id number] (more content not included)... Normal [facility] UA DIP, URINE (POC)on 2024 BILIRUBIN UA (POCT) Negative Negative [facility] CLARITY UA (POCT) Clear [facility] COLOR UA (POCT) Yellow [facility] GLUCOSE UA (POCT) 500 mg/dL Abnormal Negative [facility] Hemoglobin Ql (U) Negative Negative [facility] Interpretation and review of laboratory results Abnormal [facility] KETONE UA (POCT) Trace Negative mg/dL [facility] LEUKOCYTES UA (POCT) Negative Negative [facility] NITRITE UA (POCT) Negative Negative [facility] PH UA (POCT) 6.5 4.5 - 8.0 [facility] Protein Ql (U) 30 mg/dL Abnormal Negative [facility] SPECIFIC GRAVITY UA (POCT) 1.02 1.005 - 1.030 [facility] UROBILINOGEN UA (POCT) 0.2 Normal E.U./d L [facility] Location:[address], [place], [place], [address] [place] [address] POINT OF [facility] BACTERIAL VAGINOSIS NAATon 0 12-08-2024 Lactobacillus crispatus+gasseri+mosley ii + Gardnerella vaginalis + Atopobium vaginae rRNA VIRGILIO+probe Ql (Vag fld) Detected Abnormal Not detected [facility] Comment on above: Order Comment: Speci men Type: SWAB Ordering Facility: [facility] Address: [address] [place] [address] Performed By: #### C VTV, BVAMP #### [facility] CLIA [id number] [address] [place] [address] [place] Bacteria Ur Culton Bacteria identified Cx Nom (U) ORGANISM ID: 1 10,000 -<50,000 CFU/ml Normal urogenital nicky Streptococcus agalactiae (Group B streptococcus) was identified in this specimen, which is clinically relevant if the individual is . Normal [facility] Comment on above: Performed By: #### 6 30-4 ####[facility] [id number] [place] [address] [place] C. trachomatis+N. gonorrhoea e DNA VIRGILIO+probe Ql (Unsp spec)on 12-08-2024 C. trachomatis rRNA VIRGILIO+probe Ql (Unsp spec) Not detected Normal Not detected [facility] Comment on above: Order Comment: Speci men Type: SWAB Ordering Facility: [facility] Address: [address] [place] [address] Performed By: #### C VTV, BVAMP #### [facility] CLIA [id number] [address] [place] [address] [place] N. gonorrhoeae rRNA VIRGILIO+probe Ql (Unsp spec) Not detected Normal Not detected [facility] Comment on above: Order Comment: Speci men Type: SWAB Ordering Facility: [facility] Address: [address] [place] [address] Performed By: #### C VTV, BVAMP #### [facility] CLIA [id number] [address] [address] OF [place] ITZ/TRICHOMONAS NAATon 0 12-08-2024 C. glabrata RNA VIRGILIO+probe Ql (Vag fld) Not detected Normal Not detected [facility] Comment on above: Order Comment: Speci men Type: SWAB Ordering Facility: [facility] Address: [address] [place] [address] Performed By: #### C VTV #### [facility] CLIA [id number] [address] [place] [address] [place] Itz sp DNA VIRGILIO+probe Ql (Vag fld) Detected Abnormal Not detected [facility] Comment on above: Order Comment: Speci men Type: SWAB Ordering Facility: [facility] Address: [address] [place] [address] Result Comment: The Itz species group target includes C. albicans, C. tropicalis, C. parapsilosis, and C. dubliniensis. Performed By: #### C VTV #### [facility] CLIA [id number] [address] [place] [address] [place] T. vaginalis DNA VIRGILIO+probe Ql (Unsp spec) Not detected Normal Not detected [facility] Comment on above: Order Comment: Speci men Type: SWAB Ordering Facility: [facility] Address: [address] [place] [address] Performed By: #### C VTV #### [facility] CLIA [id number] [address] [place] [address] [place] CNOVon 12-08-2024 CNOV Office Visit (UCWSTR ) DONNA MCMAHON ([id number]) 2 F Date Time Provider Department 12/08/24 8:45 AM GIN DARREL [facility] During your visit today, we recorded the following information about you: Temperature Pulse Respiration Blood pressure 97.8 degrees 100/minute 18/minute 128/80 Weight 111.8 kg Darrel Greenfield APRN.CNP 12/08/2024 9:38 AM Signed CC: Patient presents with: Vaginal Problem: Vaginal itching and discharge and urgency x 3 days HPI Donna Mcmahon is a 24 year old female presenting for vaginal discharge. Two days ago she started with vaginal itching. She thought she was having a herpes outbreak. Yesterday she developed yellow/white vaginal discharge with continued itching. There is burning to the skin when she voids. She has not noticed any lesions or sores but has not done a self exam. She had unprotected sex last week with a new partner. She states I wiped after, and his stuff was yellow. She reports he denied any STD's. She is not having pelvic pain, vaginal pain, dyspareunia or abnormal bleeding. Review of Systems Constitutional: Negative for activity change, chills, fatigue and fever. Cardiovascular: Negative for chest pain and palpitations. Gastrointestinal: Negative for abdominal pain, diarrhea, nausea, rectal pain and vomiting. Genitourinary: Positive for dysuria and vaginal discharge (itching). Negative for dyspareunia, flank pain, frequency, genital sores, hematuria, menstrual problem, pelvic pain, urgency, vaginal bleeding and vaginal pain. PAST MEDICAL HISTORY Diagnosis Date Mild intermittent asthma without complication PCOS (polycystic ovarian syndrome) PAST SURGICAL HISTORY Procedure Laterality Date STRABISMUS SURG PT W SCAR EO MUSCL ALLERGIES Amoxicillin-Pot Clavulanate and Vancomycin MEDICATIONS doxycycline hyclate (VIBRAMYCIN) 100 mg capsule metFORMIN ER (GLUCOPHAGE XR) 500 mg 24 hr tablet Take 1 tablet by mouth daily with breakfast. albuterol HFA (PROVENTIL HFA, VENTOLIN HFA) 90 mcg/actuation inhaler Inhale 2 Puffs as instructed every 4 hours as needed. blood sugar diagnostic (BLOOD GLUCOSE TEST) test strip Test blood sugar(s) one times daily. Dx: Type 2 DM - Controlled E11.9 Insulin: No albuterol (PROVENTIL) 2.5 mg /3 mL (0.083 %) nebulizer solution Use 3 mL via nebulizer every 4 hours as needed for wheezing/shortness of breath. valACYclovir (VALTREX) 500 mg tablet Take 1,000 mg by mouth as needed (outbreaks). cetirizine (ZYRTEC) 10 mg tablet Take 1 tablet by mouth once daily. Lancets lancets Test blood sugar(s) one times daily. Dx: Type 2 DM - Controlled E11.9 Insulin: No metroNIDAZOLE (FLAGYL) 500 mg tablet (Patient not taking: Reported on 12/08/2024) medroxyPROGESTERone (DEPO-PROVERA) 150 mg/mL (Patient not taking: Reported on 10/21/2024) FAMILY HISTORY Problem Relation Age of Onset Hypertension Father Social History Tobacco Use Smoking status: Never Smokeless tobacco: Never Vaping Use Vaping status: Never Used Substance Use Topics Alcohol use: Not Currently Drug use: Never BP 128/80 Pulse 100 Temp 36.6 ?C (97.8 ?F) (Tympanic) Resp 18 Wt 111.8 kg (246 lb 7.6 oz) LMP (LMP Unknown) SpO2 97% BMI 41.02 kg/m? Physical Exam Cardiovascular: Rate and Rhythm: Normal rate and regular rhythm. Heart sounds: Normal heart sounds, S1 normal and S2 normal. No murmur heard. Pulmonary: Effort: Pulmonary effort is normal. Breath sounds: Normal breath sounds. Abdominal: General: Bowel sounds are normal. Tenderness: There is no abdominal tenderness. There is no right CVA tenderness or left CVA tenderness. Genitourinary: Pubic Area: No rash. Labia: Right: No rash, tenderness, lesion or injury. Left: No rash, tenderness, lesion or injury. Urethra: No prolapse or urethral swelling. Vagina: Vaginal discharge and erythema (Surrounding the vaginal opening) present. Cervix: Discharge (White and thick) present. No lesion or cervical bleeding. Uterus: No uterine prolapse. Rectum: Guaiac stool: difluc. No external hemorrhoid. Neurological: Mental Status: She is alert. Psychiatric: Behavior: Behavior is cooperative. ASSESSMENT/PLAN: 1. Vaginal discharge - ICD9: 623.5, ICD10: N89.8 (primary diagnosis) White thick discharge in vaginal canal and at cervix with vaginal itching. No pelvic pain, lesions or abnormal bleeding. Erythema surrounding vaginal opening. Patient self swabbed.Requests STD testing. - Discussed safe sex practices - Advised to continue managing blood glucose. - Follow up in 3-5 days if symptoms worsen. - Start taking Diflucan - Will call with results - GONORRHEA/CHLAMYDIA NAAT - BV/ITZ/TRICHOMONA S 2. Urgency of urination - ICD9: 788.63, ICD10: R39.15 Urine dip negative for UTI. Patient denies dysuria, no CVA tenderness, Afebrile.Culture sent. - UA DIP, URINE (POC) (more content not included)... Normal [facility] UA DIP, URINE (POC)on 2024 BILIRUBIN UA (POCT) Negative Negative [facility] CLARITY UA (POCT) Clear [facility] COLOR UA (POCT) Yellow [facility] GLUCOSE UA (POCT) Negative Negative mg/dL [facility] Hemoglobin Ql (U) Negative Negative [facility] Interpretation and review of laboratory results Abnormal [facility] KETONE UA (POCT) Negative Negative mg/dL [facility] LEUKOCYTES UA (POCT) Trace Abnormal Negative [facility] NITRITE UA (POCT) Negative Negative [facility] PH UA (POCT) 6 4.5 - 8.0 [facility] Protein Ql (U) Negative Negative mg/dL [facility] SPECIFIC GRAVITY UA (POCT) 1.025 1.005 - 1.030 [facility] UROBILINOGEN UA (POCT) 0.2 Normal E.U./d L [facility] Location:[address], [place], [place], [id number] [place] [address] POINT OF CARE [facility] .Auto Diffon 11-06-2024 Basophil, Absolute 0.0 10 3/mcL Normal 0.0-0.2 [facility] Comment on above: Performed By: #### G FR, CBC, MG, ANEU, ADIFF, CMP #### [address] [place], [place] [address] Basophils/100 WBC (Bld) 0.5 % Normal 0.0-2.5 [facility] Comment on above: Performed By: #### G FR, CBC, MG, ANEU, ADIFF, CMP #### [address] [place], [place] [address] Eosinophil, Absolute 0.0 10 3/mcL Normal 0.0-0.7 [facility] Comment on above: Performed By: #### G FR, CBC, MG, ANEU, ADIFF, CMP #### [address] [address] Eosinophils/100 WBC (Bld) 0.3 % Normal 0.0-7.0 [facility] Comment on above: Performed By: #### G FR, CBC, MG, ANEU, ADIFF, CMP #### [address] [address] [address] Lymphocyte, Absolute 2.4 10 3/mcL Normal 0.9-4.3 [facility] Comment on above: Performed By: #### G FR, CBC, MG, ANEU, ADIFF, CMP #### [address] [address] Lymphocytes/100 WBC (Bld) 32.5 % Normal 20.0-40.0 [facility] Comment on above: Performed By: #### G FR, CBC, MG, ANEU, ADIFF, CMP #### [address] [address] Monocyte, Absolute 1.2 10 3/mcL Normal 0.1-1.4 [facility] Comment on above: Performed By: #### G FR, CBC, MG, ANEU, ADIFF, CMP #### [address] [address] Monocytes/100 WBC (Bld) 16.7 % High 2.0-13.0 [facility] Comment on above: Performed By: #### G FR, CBC, MG, ANEU, ADIFF, CMP #### [address] [address] Neutrophils/100 WBC (Bld) 50.0 % Normal 50.0-75.0 [facility] Comment on above: Performed By: #### G FR, CBC, MG, ANEU, ADIFF, CMP #### [address] [address] .GFRon 11-06-2024 Estimated Glomerular Filtration Rate 106 ml/min/1.73sqm Normal [facility] Comment on above: Result Comment: Stages of Chronic Kidney Disease (CKD) Stage Description eGFR(ml/min/1.73 sq.m.) CKD 1 Normal kidney function or >=90 normal kindney function with possible kidney damage (ex. Proteinuria) CKD 2 Kidney damage with mild loss 60-89 of kidney function CKD 3a Mild to moderate loss of kidney 45-59 function CKD 3b Moderate to severe loss of 30-44 of kindey function CKD 4 Severe loss of kidney function 15-29 CKD 5 Kidney failure <15 Note: (go live 2024) the eGFR calculation was updated to the 2020 CKD-EPI creatinine equation without a race factor to calculate the eGFR results. Performed By: #### G FR, CBC, MG, ANEU, ADIFF, CMP #### [address] [address] .NEUABSon 11-06-2024 Neutrophil, Absolute 3.7 10 3/mcL Normal 2.3-8.1 [facility] Comment on above: Performed By: #### G FR, CBC, MG, ANEU, ADIFF, CMP #### [address] [address] CBCon 11-06-2024 Erythrocyte distribution width (RBC) [Ratio] 12.9 % Normal 11.5-15.5 [facility] Comment on above: Performed By: #### G FR, CBC, MG, ANEU, ADIFF, CMP #### [place] [address] Hematocrit (Bld) [Volume fraction] 40.7 % Normal 34.0-46.0 [facility] Comment on above: Performed By: #### G FR, CBC, MG, ANEU, ADIFF, CMP #### [place] [address]7 Hgb 14.1 G/dL Normal 12.0-16.0 [facility] Comment on above: Performed By: #### G FR, CBC, MG, ANEU, ADIFF, CMP #### [place] [id number] MCH (RBC) [Entitic mass] 31.3 pg Normal 27.0-33.0 [facility] Comment on above: Performed By: #### G FR, CBC, MG, ANEU, ADIFF, CMP #### [address] [address] MCHC 34.6 G/dL Normal 32.0-36.0 [facility] Comment on above: Performed By: #### G FR, CBC, MG, ANEU, ADIFF, CMP #### [place] [address] MCV (RBC) [Entitic vol] 90.4 fL Normal 80.0-99.0 [facility] Comment on above: Performed By: #### G FR, CBC, MG, ANEU, ADIFF, CMP #### [address] [address] Platelet 217 10 3/mcL Normal 150-450 [facility] Comment on above: Performed By: #### G FR, CBC, MG, ANEU, ADIFF, CMP #### [place] [address] Platelet mean volume (Bld) [Entitic vol] 7.2 fL Normal 6.6-10.5 [facility] Comment on above: Performed By: #### G FR, CBC, MG, ANEU, ADIFF, CMP #### [address] [address] RBC 4.50 10 6/mcL Normal 4.10-5.30 [facility] Comment on above: Performed By: #### G FR, CBC, MG, ANEU, ADIFF, CMP #### [address] [address] WBC 7.4 10 3/mcL Normal 4.5-10.8 [facility] Comment on above: Performed By: #### G FR, CBC, MG, ANEU, ADIFF, CMP #### [place] [id number] CMPon 11-06-2024 Albumin Level 3.1 G/dL Low 3.5-5.0 [facility] Comment on above: Performed By: #### G FR, CBC, MG, ANEU, ADIFF, CMP #### [place] [address] Albumin/Globulin [Mass ratio] 0.9 {ratio} Low 1.1-2.5 [facility] Comment on above: Performed By: #### G FR, CBC, MG, ANEU, ADIFF, CMP #### [place] [address] ALP [Catalytic activity/Vol] 123 U/L Normal 40-135 [facility] Comment on above: Performed By: #### G FR, CBC, MG, ANEU, ADIFF, CMP #### [place] [address]2247 ALT [Catalytic activity/Vol] 56 U/L Normal 14-59 [facility] Comment on above: Performed By: #### G FR, CBC, MG, ANEU, ADIFF, CMP #### [place] [address] AST [Catalytic activity/Vol] 31 U/L Normal 10-40 [facility] Comment on above: Performed By: #### G FR, CBC, MG, ANEU, ADIFF, CMP #### [place] [id number] Bili Total 0.5 mg/dL Normal 0.2-1.0 [facility] Comment on above: Result Comment: Use of this assay is not recommended for patients undergoing treatment with eltrombopag due to the potential for falsely elevated results. Performed By: #### G FR, CBC, MG, ANEU, ADIFF, CMP #### [place] [address]2247 BUN/Creatinine Ratio 5 ratio Low 7-27 [facility] Comment on above: Performed By: #### G FR, CBC, MG, ANEU, ADIFF, CMP #### [place] [phone] Calcium [Mass/Vol] 8.7 mg/dL Normal 8.4-10.2 [facility] Comment on above: Performed By: #### G FR, CBC, MG, ANEU, ADIFF, CMP #### [address] [address] Chloride [Moles/Vol] 106 mmol/L Normal 98-107 [facility] Comment on above: Performed By: #### G FR, CBC, MG, ANEU, ADIFF, CMP #### [place] [address] CO2 [Moles/Vol] 25 mmol/L Normal 22-29 [facility] Comment on above: Performed By: #### G FR, CBC, MG, ANEU, ADIFF, CMP #### [place] [address] Creatinine [Mass/Vol] 0.80 mg/dL Normal 0.55-1.02 [facility] Comment on above: Result Comment: Test ing performed on Siemens Dimension EXL analyzer using a modified kinetic Edmund technique. Performed By: #### G FR, CBC, MG, ANEU, ADIFF, CMP #### [address] [address] Electrolyte Balance 9.0 mEq/L Normal 4.0-15.0 [facility] Comment on above: Performed By: #### G FR, CBC, MG, ANEU, ADIFF, CMP #### [address] [address] Globulin 3.6 G/dL Normal 1.5-3.8 [facility] Comment on above: Performed By: #### G FR, CBC, MG, ANEU, ADIFF, CMP #### [address] [address] Glucose [Mass/Vol] 132 mg/dL High 70-105 [facility] Comment on above: Performed By: #### G FR, CBC, MG, ANEU, ADIFF, CMP #### [place] [address] Potassium [Moles/Vol] 3.7 mmol/L Normal 3.5-5.1 [facility] Comment on above: Performed By: #### G FR, CBC, MG, ANEU, ADIFF, CMP #### [place] [address] [place], [place] [address] Sodium [Moles/Vol] 140 mmol/L Normal 136-145 [facility] Comment on above: Performed By: #### G FR, CBC, MG, ANEU, ADIFF, CMP #### [address] [address] Total Protein 6.7 G/dL Normal 6.4-8.2 [facility] Comment on above: Performed By: #### G FR, CBC, MG, ANEU, ADIFF, CMP #### [address] [address] Urea nitrogen [Mass/Vol] 4 mg/dL Low 7-18 [facility] Comment on above: Performed By: #### G FR, CBC, MG, ANEU, ADIFF, CMP #### [address] [address] LABORATORYOrdered By: Catia Ghosh on 11-06-2024 Blood Glucose Testing Reason Routine (11/06/24 12:07 PM) [facility] Work Phone: Glucose [Mass/Vol] 135 mg/dL High 70 - 110 mg/dL [facility] Work Phone: LABORATORYOrdered By: Connie Wasserman on 11-06-2024 Blood Glucose Testing Reason Routine (11/06/24 8:05 AM) [facility] Work Phone: Glucose [Mass/Vol] 97 mg/dL Normal 70 - 110 mg/dL [facility] Work Phone: LABORATORYOrdered By: SYSTEM SYSTEM on 11-06-2024 Albumin BCP dye [Mass/Vol] 3.1 G/dL Low 3.5 - 5.0 G/dL AO ADM SS Albumin/Globulin [Mass ratio] 0.9 {ratio} Low 1.1 - 2.5 ratio AO ADM SS ALP [Catalytic activity/Vol] 123 U/L Normal 40 - 135 U/L AO ADM SS ALT With P-5'-P [Catalytic activity/Vol] 56 U/L Normal 14 - 59 U/L AO ADM SS AST With P-5'-P [Catalytic activity/Vol] 31 U/L Normal 10 - 40 U/L AO ADM SS Basophils (Bld) [#/Vol] 0.0 103/mcL Normal 0.0 - 0.2 10^3/mcL AO Workflow SS Basophils/100 WBC (Bld) 0.5 % Normal 0.0 - 2.5 % AO Workflow SS Bilirubin [Mass/Vol] 0.5 mg/dL Normal 0.2 - 1 .0 mg/dL AO ADM SS Comment on above: Interpretive Data: U se of this assay is not recommended for patients undergoing treatment with eltrombopag due to the potential for falsely elevated results. Calcium [Mass/Vol] 8.7 mg/dL Normal 8.4 - 10. 2 mg/dL AO ADM SS Chloride [Moles/Vol] 106 mmol/L Normal 98 - 10 7 mmol/L AO ADM SS CO2 [Moles/Vol] 25 mmol/L Normal 22 - 29 mmol/L AO AD M SS Creatinine [Mass/Vol] 0.80 mg/dL Normal 0.55 - 1.02 mg/dL AO ADM SS Comment on above: Interpretive Data: T esting performed on Siemens Dimension EXL analyzer using a modified kinetic Edmund technique. Electrolyte Balance 9.0 mEq/L Normal 4.0 - 15 .0 mEq/L AO ADM SS Eosinophil, Absolute 0.0 103/mcL Normal 0.0 - 0 .7 10^3/mcL AO Workflow SS Eosinophils/100 WBC (Bld) 0.3 % Normal 0.0 - 7.0 % AO Workflow SS Erythrocyte distribution width (RBC) [Ratio] 12.9 % Normal 11.5 - 15.5 % AO Workflow SS Estimated Glomerular Filtration Rate 106 ml/min/1.73sqm Invalid Interpretation Code AO Chemistry S Comment on above: Interpretive Data: Stages of Chronic Kidney Disease (CKD) Stage Description eGFR(ml/min/1.73 sq.m.) CKD 1 Normal kidney function or >=90 normal kindney function with possible kidney damage (ex. Proteinuria) CKD 2 Kidney damage with mild loss 60-89 of kidney function CKD 3a Mild to moderate loss of kidney 45-59 function CKD 3b Moderate to severe loss of 30-44 of kindey function CKD 4 Severe loss of kidney function 15-29 CKD 5 Kidney failure <15 Note: (go live 2024) the eGFR calculation was updated to the 2020 CKD-EPI creatinine equation without a race factor to calculate the eGFR results. Globulin 3.6 G/dL Normal 1.5 - 3.8 G/dL AO ADM SS Glucose [Mass/Vol] 132 mg/dL High 70 - 105 mg/dL AO ADM SS Hematocrit (Bld) [Volume fraction] 40.7 % Normal 34.0 - 46.0 % AO Workflow SS Hemoglobin (Bld) [Mass/Vol] 14.1 G/dL Normal 12.0 - 16.0 G/dL AO Workflow SS Lymphocytes (Bld) [#/Vol] 2.4 103/mcL Normal 0.9 - 4.3 10^3/mcL AO Workflow SS Lymphocytes/100 WBC (Bld) 32.5 % Normal 20.0 - 40.0 % AO Workflow SS Magnesium [Mass/Vol] 1.8 mg/dL Normal 1.8 - 2 .4 mg/dL AO ADM SS MCH (RBC) [Entitic mass] 31.3 pg Normal 27.0 - 33.0 pg AO Workflow SS MCHC 34.6 G/dL Normal 32.0 - 36.0 G/dL AO Workflow SS MCV (RBC) [Entitic vol] 90.4 fL Normal 80.0 - 99.0 fL AO Workflow SS Monocytes (Bld) [#/Vol] 1.2 103/mcL Normal 0.1 - 1.4 10^3/mcL AO Workflow SS Monocytes/100 WBC (Bld) 16.7 % High 2.0 - 13.0 % AO Workflow SS Neutrophils (Bld) [#/Vol] 3.7 103/mcL Normal 2.3 - 8.1 10^3/mcL AO Workflow SS Neutrophils/100 WBC (Bld) 50.0 % Normal 50.0 - 75.0 % AO Workflow SS Platelet mean volume (Bld) [Entitic vol] 7.2 fL Normal 6.6 - 10.5 fL AO Workflow SS Platelets (Bld) [#/Vol] 217 103/mcL Normal 150 - 450 10^3/mcL AO Workflow SS Potassium [Moles/Vol] 3.7 mmol/L Normal 3.5 - 5.1 mmol/L AO ADM SS Protein [Mass/Vol] 6.7 G/dL Normal 6.4 - 8.2 G/dL AO ADM SS RBC (Bld) [#/Vol] 4.50 106/mcL Normal 4.10 - 5.3 0 10^6/mcL AO Workflow SS Sodium [Moles/Vol] 140 mmol/L Normal 136 - 145 mmol/L AO ADM SS Urea nitrogen [Mass/Vol] 4 mg/dL Low 7 - 18 mg/d L AO ADM SS Urea nitrogen/Creatinine [Mass ratio] 5 ratio Low 7 - 27 ratio AO ADM SS WBC (Bld) [#/Vol] 7.4 103/mcL Normal 4.5 - 10.8 10^3/mcL AO Workflow SS MGon 11-06-2024 Magnesium [Mass/Vol] 1.8 mg/dL Normal 1.8-2.4 [facility] Comment on above: Performed By: #### G FR, CBC, MG, ANEU, ADIFF, CMP #### [address] [address] RESCVIDon 11-06-2024 Adenovirus Not detected Normal Not Detected [facility] Comment on above: Performed By: #### R ESCVID ####[place] [address] Bordetella Parapertussis Not detected Normal Not Detec [facility] Comment on above: Performed By: #### R ESCVID ####[place] [address] Bordetella Pertussis Not detected Normal Not Detected [facility] Comment on above: Performed By: #### R ESCVID ####[address] [address] Chlamydophila pneumoniae Not detected Normal Not Detec [facility] Comment on above: Performed By: #### R ESCVID ####[place] [address] Coronavirus 229E (Not COVID-19) Not detected Normal Not Detected [facility] Comment on above: Performed By: #### R ESCVID ####[place] [address] Coronavirus HKU1 (Not COVID-19) Not detected Normal Not Detected [facility] Comment on above: Performed By: #### R ESCVID ####[place] [address] Coronavirus NL63 (Not COVID-19) Not detected Normal Not Detected [facility] Comment on above: Performed By: #### R ESCVID ####[place] [address] Coronavirus OC43 (Not COVID-19) Not detected Normal Not Detected [facility] Comment on above: Performed By: #### R ESCVID ####[place] [address] Human Metapneumovirus Not detected Normal Not Detected [facility] Comment on above: Performed By: #### R ESCVID ####[place] [address] Influenza A H1-2009 Detected Abnormal Not Detected [facility] Comment on above: Result Comment: This organism causes a reportable disease. Infection Control has been notified. Results have been reported to the [facility]. Performed By: #### R ESCVID ####[place] [address] Influenza A H3 Detected Abnormal Not Detected [facility] Comment on above: Result Comment: This organism causes a reportable disease. Infection Control has been notified. Results have been reported to the [facility]. Performed By: #### R ESCVID ####[place] [address] Influenza B Not detected Normal Not Detected [facility] Comment on above: Performed By: #### R ESCVID ####[place] [address] Mycoplasma pneumoniae Not detected Normal Not Detected [facility] Comment on above: Performed By: #### R ESCVID ####[place] [address] Parainfluenza 1 Not detected Normal Not Detected [facility] Comment on above: Performed By: #### R ESCVID ####[place] [address] Parainfluenza 2 Not detected Normal Not Detected [facility] Comment on above: Performed By: #### R ESCVID ####[place] [address] Parainfluenza 3 Not detected Normal Not Detected [facility] Comment on above: Performed By: #### R ESCVID ####[place] [address] Parainfluenza 4 Not detected Normal Not Detected [facility] Comment on above: Performed By: #### R ESCVID ####[place] [address] Respiratory Syncytial Virus Not detected Normal Not Detected [facility] Comment on above: Performed By: #### R ESCVID ####[place] [address] Rhinovirus/Enterovirus Not detected Normal Not Detecte d [facility] Comment on above: Performed By: #### R ESCVID ####[place] [address] SARS-CoV-2 (COVID-19) RNA VIRGILIO+probe Ql (Unsp spec) Not detected Normal Not Detected [facility] Comment on above: Result Comment: This assay has been validated in the [facility] for use with nasopharyngeal specimens in [facility]. If a non-validated specimen or test collection method was used, please interpret the results with caution, especially if the test result is negative. A positive test result for COVID-19 indicates that RNA from SARS-CoV-2 was detected, and the patient is infected with the virus and presumed to be contagious. Laboratory test results should always be considered in the context of clinical observations and epidemiological data in making a final diagnosis and patient management decisions. Patient management should follow current CDC guidelines. A negative test result for this test means that SARS-CoV-2 RNA was not present in the specimen above the limit of detection. However, a negative result does not rule out COVID-19 and should not be used as the sole basis for treatment or patient management decisions. A negative result does not exclude the possibility of COVID-19. When diagnostic testing is negative, the possibility of a false negative result should be considered in the context of a patient's recent exposures and the presence of clinical signs and symptoms consistent with COVID-19. The possibility of a false negative result should especially be considered if the patient?s recent exposures or clinical presentation indicate that COVID-19 is likely, and diagnostic tests for other causes of illness (e.g., other respiratory illness) are negative. If COVID-19 is still suspected based on exposure history together with other clinical findings, re-testing should be considered by healthcare providers in consultation with public health authorities. Performed By: #### R ESCVID ####[address] [address] .Auto Diffon 11-05-2024 Basophil, Absolute 0.0 10 3/mcL Normal 0.0-0.2 [facility] Comment on above: Performed By: #### C BC, BMP, ADIFF, GFR, ANEU, MDW, TROPHS ####[facility] [place], [place] [address] Basophils/100 WBC (Bld) 0.6 % Normal 0.0-2.5 [facility] Comment on above: Performed By: #### C BC, BMP, ADIFF, GFR, ANEU, MDW, TROPHS ####[facility] [place], [place] [address] Eosinophil, Absolute 0.1 10 3/mcL Normal 0.0-0.7 [facility] Comment on above: Performed By: #### C BC, BMP, ADIFF, GFR, ANEU, MDW, TROPHS ####[facility] [place], [place] [address] Eosinophils/100 WBC (Bld) 1.4 % Normal 0.0-7.0 [facility] Comment on above: Performed By: #### C BC, BMP, ADIFF, GFR, ANEU, MDW, TROPHS ####[facility] [place], [place] [address] Lymphocyte, Absolute 1.1 10 3/mcL Normal 0.9-4.3 [facility] Comment on above: Performed By: #### C BC, BMP, ADIFF, GFR, ANEU, MDW, TROPHS ####[place] [address] [place], [place] [address] Lymphocytes/100 WBC (Bld) 15.1 % Low 20.0-40.0 [facility] Comment on above: Performed By: #### C BC, BMP, ADIFF, GFR, ANEU, MDW, TROPHS ####Michelle [address] [place], [place] [address] Monocyte, Absolute 0.9 10 3/mcL Normal 0.1-1.4 [facility] Comment on above: Performed By: #### C BC, BMP, ADIFF, GFR, ANEU, MDW, TROPHS ####[place] [address] [place], [place] [address] Monocytes/100 WBC (Bld) 12.2 % Normal 2.0-13.0 [facility] Comment on above: Performed By: #### C BC, BMP, ADIFF, GFR, ANEU, MDW, TROPHS ####[address] [place], [place] [address] Neutrophils/100 WBC (Bld) 70.7 % Normal 50.0-75.0 [facility] Comment on above: Performed By: #### C BC, BMP, ADIFF, GFR, ANEU, MDW, TROPHS ####[place] [address] [place], [place] [address] .GFRon 11-05-2024 Estimated Glomerular Filtration Rate 87 ml/min/1.73sqm Normal [facility] Comment on above: Result Comment: Stages of Chronic Kidney Disease (CKD) Stage Description eGFR(ml/min/1.73 sq.m.) CKD 1 Normal kidney function or >=90 normal kindney function with possible kidney damage (ex. Proteinuria) CKD 2 Kidney damage with mild loss 60-89 of kidney function CKD 3a Mild to moderate loss of kidney 45-59 function CKD 3b Moderate to severe loss of 30-44 of kindey function CKD 4 Severe loss of kidney function 15-29 CKD 5 Kidney failure <15 Note: (go live 2024) the eGFR calculation was updated to the 2020 CKD-EPI creatinine equation without a race factor to calculate the eGFR results. Performed By: #### C TPCR, NGPCR1 #### [facility] [address] [place] [address] .MDWon 11-05-2024 Monocyte Distribution Width 25.07 High 0.00-20.00 [facility] Comment on above: Result Comment: For adults in ED, MDW>20.0 may be associated with a higher risk of sepsis during the first 12hrs of hospital admission Performed By: #### C BC, BMP, ADIFF, GFR, ANEU, MDW, TROPHS ####[place] [address] [place], [place] [address] .NEUABSon 11-05-2024 Neutrophil, Absolute 5.3 10 3/mcL Normal 2.3-8.1 [facility] Comment on above: Performed By: #### C BC, BMP, ADIFF, GFR, ANEU, MDW, TROPHS ####[facility] [place], [place] [address] BMPon 11-05-2024 BUN/Creatinine Ratio 6 ratio Low 7-27 [facility] Comment on above: Performed By: #### C BC, BMP, ADIFF, GFR, ANEU, MDW, TROPHS ####[facility] [place], [place] [address] Calcium [Mass/Vol] 9.2 mg/dL Normal 8.4-10.2 [facility] Comment on above: Performed By: #### C BC, BMP, ADIFF, GFR, ANEU, MDW, TROPHS ####[place] [address] [place], [place] [address] Chloride [Moles/Vol] 102 mmol/L Normal 98-107 [facility] Comment on above: Performed By: #### C BC, BMP, ADIFF, GFR, ANEU, MDW, TROPHS ####[place] [address] [place], [place] [address] CO2 [Moles/Vol] 25 mmol/L Normal 22-29 [facility] Comment on above: Performed By: #### C BC, BMP, ADIFF, GFR, JOSÉ DUMONT, TROPHS ####[place] [address] [place], [place] [address] Creatinine [Mass/Vol] 0.94 mg/dL Normal 0.55-1.02 [facility] Comment on above: Result Comment: Test ing performed on Siemens Dimension EXL analyzer using a modified kinetic Edmund technique. Performed By: #### C BC, BMP, ADIFF, GFR, ANEU, JOSÉ, TROPHS ####[address] [place] [place], [place] [address] Electrolyte Balance 8.0 mEq/L Normal 4.0-15.0 [facility] Comment on above: Performed By: #### C BC, BMP, ADIFF, GFR, JULIA, JOSÉ, TROPHS ####[address] [address] Glucose [Mass/Vol] 205 mg/dL High 70-105 [facility] Comment on above: Performed By: #### C BC, BMP, ADIFF, GFR, JOSÉ DUMONT, TROPHS ####Michelle [address] [address] Potassium [Moles/Vol] 4.3 mmol/L Normal 3.5-5.1 [facility] Comment on above: Performed By: #### C BC, BMP, ADIFF, GFR, ANEU, JOSÉ, TROPHS ####Michelle [address] [address] Sodium [Moles/Vol] 135 mmol/L Low 136-145 [facility] Comment on above: Performed By: #### C BC, BMP, ADIFF, GFR, JOSÉ DUMONT, TROPHS ####[address] [place], [place] [address] Urea nitrogen [Mass/Vol] 6 mg/dL Low 7-18 [facility] Comment on above: Performed By: #### C BC, BMP, ADIFF, GFR, JOSÉ DUMONT, TROPHS ####[address] [place], [place] [address] CBCon 11-05-2024 Erythrocyte distribution width (RBC) [Ratio] 12.9 % Normal 11.5-15.5 [facility] Comment on above: Performed By: #### C BC, BMP, ADIFF, GFR, ANEU, MDW, TROPHS ####[address] [place] [id number] Hematocrit (Bld) [Volume fraction] 45.9 % Normal 34.0-46.0 [facility] Comment on above: Performed By: #### C BC, BMP, ADIFF, GFR, ANEU, MDW, TROPHS ####[address] [place], [place] [address] Hgb 16.0 G/dL Normal 12.0-16.0 [facility] Comment on above: Performed By: #### C BC, BMP, ADIFF, GFR, ANEU, MDW, TROPHS ####[address] [place], [place] [address] MCH (RBC) [Entitic mass] 31.2 pg Normal 27.0-33.0 [facility] Comment on above: Performed By: #### C BC, BMP, ADIFF, GFR, ANEU, MDW, TROPHS ####[address] [place], [place] [address] MCHC 34.8 G/dL Normal 32.0-36.0 [facility] Comment on above: Performed By: #### C BC, BMP, ADIFF, GFR, ANEU, MDW, TROPHS ####[address] [place], [place] [address] MCV (RBC) [Entitic vol] 89.8 fL Normal 80.0-99.0 [facility] Comment on above: Performed By: #### C BC, BMP, ADIFF, GFR, ANEU, MDW, TROPHS ####[address] [place] [id number] Platelet 235 10 3/mcL Normal 150-450 [facility] Comment on above: Performed By: #### C BC, BMP, ADIFF, GFR, JULIA, JOSÉ, TROPHS ####[place] [address] [place] [address] Platelet mean volume (Bld) [Entitic vol] 7.0 fL Normal 6.6-10.5 [facility] Comment on above: Performed By: #### C BC, BMP, ADIFF, GFR, JULIA, JOSÉ, TROPHS ####[place] [address] [place] [address] RBC 5.11 10 6/mcL Normal 4.10-5.30 [facility] Comment on above: Performed By: #### C BC, BMP, ADIFF, GFR, JULIA, JOSÉ, TROPHS ####[address] [place] [address] WBC 7.5 10 3/mcL Normal 4.5-10.8 [facility] Comment on above: Performed By: #### C BC, BMP, ADIFF, GFR, JULIA, JOSÉ, TROPHS ####[place] [address] CVFLURVon 11-05-2024 FLU A PCR Positive Abnormal Negative [facility] Comment on above: Performed By: #### C VFLURV ####[place] [address] FLU B PCR Negative Normal Negative [facility] Comment on above: Performed By: #### C VFLURV ####[place] [address] RSV PCR Negative Normal Negative [facility] Comment on above: Performed By: #### C VFLURV ####[place] [address] SARS-CoV-2 (COVID-19) RNA VIRGILIO+probe Ql (Unsp spec) Negative Normal Negative [facility] Comment on above: Result Comment: Resu lts from the Xpert Xpress CoV-2/Flu/RSV plus test should be correlated with the clinical history, epidemiological data, and other data available to the clinical evaluating the patient. Performance of the Xpert Xpress CoV-2/Flu/RSV plus test has only been established in nasopharyngeal swab specimen. Erroneous test results might occur from improper specimen collection, failure to follow the recommended sample collection, handling and storage procedures, technical error, or sample mix-up. False negative results may occur if a virus is present at a level below the analytical limit of detection. Viral nucleic acid may persist in vivo, independent of virus viability. Detection of analyte target(s) does not imply that the corresponding virus(es) are infectious or are the causative agents for clinical symptoms. Recent patient exposure to FluMist or other live attenuated influenza vaccines may cause inaccurate positive results. Performed By: #### C [facility] ####[facility] [place] [address] LABORATORYOrdered By: Gurmeet Bird on 11-05-2024 Blood Glucose Testing Reason Routine (11/05/24 9:46 PM) [facility] Work Phone: Glucose [Mass/Vol] 158 mg/dL High 70 - 110 mg/dL [facility] Work Phone: LABORATORYOrdered By: SYSTEM SYSTEM on 11-05-2024 Basophils (Bld) [#/Vol] 0.0 103/mcL Normal 0.0 - 0.2 10^3/mcL AO Workflow SS Basophils/100 WBC (Bld) 0.6 % Normal 0.0 - 2.5 % AO Workflow SS Calcium [Mass/Vol] 9.2 mg/dL Normal 8.4 - 10. 2 mg/dL AO ADM SS Chloride [Moles/Vol] 102 mmol/L Normal 98 - 10 7 mmol/L AO ADM SS CO2 [Moles/Vol] 25 mmol/L Normal 22 - 29 mmol/L AO AD M SS Creatinine [Mass/Vol] 0.94 mg/dL Normal 0.55 - 1.02 mg/dL AO ADM SS Comment on above: Interpretive Data: T esting performed on Siemens Dimension EXL analyzer using a modified kinetic Edmund technique. Electrolyte Balance 8.0 mEq/L Normal 4.0 - 15 .0 mEq/L AO ADM SS Eosinophil, Absolute 0.1 103/mcL Normal 0.0 - 0 .7 10^3/mcL AO Workflow SS Eosinophils/100 WBC (Bld) 1.4 % Normal 0.0 - 7.0 % AO Workflow SS Erythrocyte distribution width (RBC) [Ratio] 12.9 % Normal 11.5 - 15.5 % AO Workflow SS Estimated Glomerular Filtration Rate 87 ml/min/1.73sqm Invalid Interpretation Code AO Chemistry S Comment on above: Interpretive Data: Stages of Chronic Kidney Disease (CKD) Stage Description eGFR(ml/min/1.73 sq.m.) CKD 1 Normal kidney function or >=90 normal kindney function with possible kidney damage (ex. Proteinuria) CKD 2 Kidney damage with mild loss 60-89 of kidney function CKD 3a Mild to moderate loss of kidney 45-59 function CKD 3b Moderate to severe loss of 30-44 of kindey function CKD 4 Severe loss of kidney function 15-29 CKD 5 Kidney failure <15 Note: (go live 2024) the eGFR calculation was updated to the 2020 CKD-EPI creatinine equation without a race factor to calculate the eGFR results. Glucose [Mass/Vol] 205 mg/dL High 70 - 105 mg/dL AO ADM SS Hematocrit (Bld) [Volume fraction] 45.9 % Normal 34.0 - 46.0 % AO Workflow SS Hemoglobin (Bld) [Mass/Vol] 16.0 G/dL Normal 12.0 - 16.0 G/dL AO Workflow SS Lymphocytes (Bld) [#/Vol] 1.1 103/mcL Normal 0.9 - 4.3 10^3/mcL AO Workflow SS Lymphocytes/100 WBC (Bld) 15.1 % Low 20.0 - 40.0 % AO Workflow SS MCH (RBC) [Entitic mass] 31.2 pg Normal 27.0 - 33.0 pg AO Workflow SS MCHC 34.8 G/dL Normal 32.0 - 36.0 G/dL AO Workflow SS MCV (RBC) [Entitic vol] 89.8 fL Normal 80.0 - 99.0 fL AO Workflow SS Monocyte distribution width Auto (Bld) [Entitic vol] 25.07 1 High 0.00 - 20.00 AO Workflow SS Comment on above: Result Comment: For adults in ED, MDW>20.0 may be associated with a higher risk of sepsis during the first 12hrs of hospital admission Monocytes (Bld) [#/Vol] 0.9 103/mcL Normal 0.1 - 1.4 10^3/mcL AO Workflow SS Monocytes/100 WBC (Bld) 12.2 % Normal 2.0 - 13.0 % AO Workflow SS Neutrophils (Bld) [#/Vol] 5.3 103/mcL Normal 2.3 - 8.1 10^3/mcL AO Workflow SS Neutrophils/100 WBC (Bld) 70.7 % Normal 50.0 - 75.0 % AO Workflow SS Platelet mean volume (Bld) [Entitic vol] 7.0 fL Normal 6.6 - 10.5 fL AO Workflow SS Platelets (Bld) [#/Vol] 235 103/mcL Normal 150 - 450 10^3/mcL AO Workflow SS Potassium [Moles/Vol] 4.3 mmol/L Normal 3.5 - 5.1 mmol/L AO ADM SS RBC (Bld) [#/Vol] 5.11 106/mcL Normal 4.10 - 5.3 0 10^6/mcL AO Workflow SS Sodium [Moles/Vol] 135 mmol/L Low 136 - 145 mmol/L AO ADM SS Troponin I.cardiac DL <= 0.01 ng/mL [Mass/Vol] 4 ng/L Normal 0 - 51 ng/L AO ADM SS Comment on above: Interpretive Data: H igh Sensitive Troponin I Reference Ranges: Female: 0-51 ng/L Male: 0-76 ng/L Testing performed on emoteShare using a homogeneous sandwich chemiluminescent immunoassay based on [employer] [place] technology. Urea nitrogen [Mass/Vol] 6 mg/dL Low 7 - 18 mg/d L AO ADM SS Urea nitrogen/Creatinine [Mass ratio] 6 ratio Low 7 - 27 ratio AO ADM SS WBC (Bld) [#/Vol] 7.5 103/mcL Normal 4.5 - 10.8 10^3/mcL AO Workflow SS LABORATORYOrdered By: Raúl Alonso on 11-05-2024 Adenovirus DNA VIRGILIO+non-probe Ql (Nph) Not Detected *NA* (11/05/24 4:30 PM) Invalid Interpretation Code Not Detected AH Auto Viro/Sero SS B. parapertussis [id number] DNA VIRGILIO+non-probe Ql (Nph) Not Detected *NA* (11/05/24 4:30 PM) Invalid Interpretation Code Not Detected AH Auto Viro/Sero SS B. pertussis toxin promoter region VIRGILIO+non-probe Ql (Nph) Not Detected *NA* (11/05/24 4:30 PM) Invalid Interpretation Code Not Detected AH Auto Viro/Sero SS C. pneumoniae DNA VIRGILIO+non-probe Ql (Nph) Not Detected *NA* (11/05/24 4:30 PM) Invalid Interpretation Code Not Detected AH Auto Viro/Sero SS FLUAV H1 2009 pand RNA VIRGILIO+non-probe Ql (Nph) Detected 11 *ABN* (11/05/24 4:30 PM) Invalid Interpretation Code Not Detected AH Auto Viro/Sero SS Comment on above: Result Comment: This organism causes a reportable disease. Infection Control has been notified. Results have been reported to the [facility]. FLUAV H3 RNA VIRGILIO+non-probe Ql (Nph) Detected 10 *ABN* (11/05/24 4:30 PM) Invalid Interpretation Code Not Detected AH Auto Viro/Sero SS Comment on above: Result Comment: This organism causes a reportable disease. Infection Control has been notified. Results have been reported to the [facility]. FLUBV RNA VIRGILIO+non-probe Ql (Nph) Not Detected *NA* (11/05/24 4:30 PM) Invalid Interpretation Code Not Detected AH Auto Viro/Sero SS hMPV RNA VIRGILIO+non-probe Ql (Nph) Not Detected *NA* (11/05/24 4:30 PM) Invalid Interpretation Code Not Detected AH Auto Viro/Sero SS M. pneumoniae DNA VIRGILIO+non-probe Ql (Nph) Not Detected *NA* (11/05/24 4:30 PM) Invalid Interpretation Code Not Detected AH Auto Viro/Sero SS Parainfluenza virus 1 RNA VIRGILIO+non-probe Ql (Nph) Not Detected *NA* (11/05/24 4:30 PM) Invalid Interpretation Code Not Detected AH Auto Viro/Sero SS Parainfluenza virus 2 RNA VIRGILIO+non-probe Ql (Nph) Not Detected *NA* (11/05/24 4:30 PM) Invalid Interpretation Code Not Detected AH Auto Viro/Sero SS Parainfluenza virus 3 RNA VIRGILIO+non-probe Ql (Nph) Not Detected *NA* (11/05/24 4:30 PM) Invalid Interpretation Code Not Detected AH Auto Viro/Sero SS Parainfluenza virus 4 RNA VIRGILIO+non-probe Ql (Nph) Not Detected *NA* (11/05/24 4:30 PM) Invalid Interpretation Code Not Detected AH Auto Viro/Sero SS Rhinovirus+Enterovirus RNA VIRGILIO+non-probe Ql (Nph) Not Detected *NA* (11/05/24 4:30 PM) Invalid Interpretation Code Not Detected AH Auto Viro/Sero SS RSV RNA VIRGILIO+non-probe Ql (Nph) Not Detected *NA* (11/05/24 4:30 PM) Invalid Interpretation Code Not Detected AH Auto Viro/Sero SS SARS-CoV-2 (COVID-19) RNA VIRGILIO+probe Ql (Resp) Not Detected 4 *NA* (11/05/24 4:30 PM) Invalid Interpretation Code Not Detected AH Auto Viro/Sero SS Comment on above: Interpretive Data: T his assay has been validated in the [facility] for use with nasopharyngeal specimens in [facility]. If a non-validated specimen or test collection method was used, please interpret the results with caution, especially if the test result is negative. A positive test result for COVID-19 indicates that RNA from SARS-CoV-2 was detected, and the patient is infected with the virus and presumed to be contagious. Laboratory test results should always be considered in the context of clinical observations and epidemiological data in making a final diagnosis and patient management decisions. Patient management should follow current CDC guidelines. A negative test result for this test means that SARS-CoV-2 RNA was not present in the specimen above the limit of detection. However, a negative result does not rule out COVID-19 and should not be used as the sole basis for treatment or patient management decisions. A negative result does not exclude the possibility of COVID-19. When diagnostic testing is negative, the possibility of a false negative result should be considered in the context of a patient's recent exposures and the presence of clinical signs and symptoms consistent with COVID-19. The possibility of a false negative result should especially be considered if the patient s recent exposures or clinical presentation indicate that COVID-19 is likely, and diagnostic tests for other causes of illness (e.g., other respiratory illness) are negative. If COVID-19 is still suspected based on exposure history together with other clinical findings, re-testing should be considered by healthcare providers in consultation with public health authorities. LABORATORYOrdered By: Prem singh on 11-05-2024 FLUAV RNA VIRGILIO+probe Ql (Resp) Positive *ABN* (11/05/24 4:30 PM) Invalid Interpretation Code Negative AO Auto Urine SS FLUBV RNA VIRGILIO+probe Ql (Resp) Negative (11/05/24 4:30 PM) Normal Negative AO Auto Urine SS RSV RNA VIRGILIO+probe Ql (Resp) Negative (11/05/24 4:30 PM) Normal Negative AO Auto Urine SS SARS-CoV-2 (COVID-19) RNA VIRGILIO+probe Ql (Resp) Negative 9 (11/05/24 4:30 PM) Normal Negative AO Auto Urine SS Comment on above: Interpretive Data: R esults from the Xpert Xpress CoV-2/Flu/RSV plus test should be correlated with the clinical history, epidemiological data, and other data available to the clinical evaluating the patient. Performance of the Xpert Xpress CoV-2/Flu/RSV plus test has only been established in nasopharyngeal swab specimen. Erroneous test results might occur from improper specimen collection, failure to follow the recommended sample collection, handling and storage procedures, technical error, or sample mix-up. False negative results may occur if a virus is present at a level below the analytical limit of detection. Viral nucleic acid may persist in vivo, independent of virus viability. Detection of analyte target(s) does not imply that the corresponding virus(es) are infectious or are the causative agents for clinical symptoms. Recent patient exposure to FluMist or other live attenuated influenza vaccines may cause inaccurate positive results. [facility] 11-05-2024 High Sensitivity Troponin I 4 ng/L Normal 0-51 [facility] Comment on above: Result Comment: High Sensitive Troponin I Reference Ranges: Female: 0-51 ng/L Male: 0-76 ng/L Testing performed on emoteShare using a homogeneous sandwich chemiluminescent immunoassay based on [employer] [place] technology. Performed By: #### C TP, NGPCR1 #### [place] [address] XR CHEST 1 VIEWon 11-05-2024 XR CHEST 1 VIEW ORIGINAL EXAMINATION: ONE XRAY VIEW OF THE CHEST 11/05/2024 4:57 pm COMPARISON: 06/28/2021 HISTORY: ORDERING SYSTEM PROVIDED HISTORY: Reason for Exam: Cough, fever FINDINGS: The cardiomediastinal silhouette appears normal. There is no focal consolidation. There is no pulmonary edema. There is no evidence of pleural effusion. There is no evidence of pneumothorax. No fracture is identified. IMPRESSION: No acute abnormality is identified. Interpreted by: Timothy Garrison Preliminary Report By: Timothy Garrison Electronically signed By Timothy Garrison Dictated Date: 11/05/2024 5:01:26 PM Prelim Date: 11/05/2024 5:01:49 PM Sign Date: 11/05/2024 5:01:49 PM Ordering Provider: WILL HECTOR Normal [facility] BACTERIAL VAGINOSIS NAATon 0 11-02-2024 Lactobacillus crispatus+gasseri+mosley ii + Gardnerella vaginalis + Atopobium vaginae rRNA VIRGILIO+probe Ql (Vag fld) Not detected Normal Not detected [facility] Comment on above: Order Comment: Speci men Type: SWABOrdering Facility: [facility] Address: [address] [place] [address] Performed By: #### B VAMP ####[facility] LABCLIA [id number] [place] [address] [place] Bacteria Ur Culton Bacteria identified Cx Nom (U) ORGANISM ID: 1 <10,000 CFU/ml Normal urogenital nicky Normal [facility] Comment on above: Performed By: #### 6 30-4 ####[facility] LABCLIA [id number] [place] [address] [place] C. trachomatis+N. gonorrhoea e DNA VIRGILIO+probe Ql (Unsp spec)on 11-02-2024 C. trachomatis rRNA VIRGILIO+probe Ql (Unsp spec) Not detected Normal Not detected [facility] Comment on above: Order Comment: Speci men Type: SWABOrdering Facility: [facility] Address: [address] [place] [address] Performed By: #### 3 6902-5, CVTV ####[facility] LABCLIA [id number] [place] [address] [place] N. gonorrhoeae rRNA VIRGILIO+probe Ql (Unsp spec) Not detected Normal Not detected [facility] Comment on above: Order Comment: Speci men Type: SWABOrdering Facility: [facility] Address: [address] [place] [address] Performed By: #### 3 6902-5, CVTV ####[facility] LABCLIA [id number] [place] [address] [place] ITZ/TRICHOMONAS NAATon 0 11-02-2024 C. glabrata RNA VIRGILIO+probe Ql (Vag fld) Not detected Normal Not detected [facility] Comment on above: Order Comment: Speci men Type: SWABOrdering Facility: [facility] Address: [address] [place] [address] Performed By: #### 3 6902-5, CVTV ####[facility] LABCLIA [id number] [place] [address] [place] Itz sp DNA VIRGILIO+probe Ql (Vag fld) Detected Abnormal Not detected [facility] Comment on above: Order Comment: Speci men Type: SWABOrdering Facility: [facility] Address: [address] [place] [address] Result Comment: The Itz species group target includes C. albicans, C. tropicalis, C. parapsilosis, and C. dubliniensis. Performed By: #### 3 6902-5, CVTV ####[facility] LABCLIA [id number] [place] [address] [place] T. vaginalis DNA VIRGILIO+probe Ql (Unsp spec) Not detected Normal Not detected [facility] Comment on above: Order Comment: Speci men Type: SWABOrdering Facility: [facility] Address: [address] [place] [address] Performed By: #### 3 6902-5, CVTV ####[facility] LABCLIA [id number] [place] [address] [place] CNOVon 11-02-2024 CNOV Office Visit (UCWSTR ) DONNA MCMAHON ([id number]) 2 F Date Time Provider Department 11/02/24 10:30 AM [facility] During your visit today, we recorded the following information about you: Temperature Pulse Respiration Blood pressure 98.4 degrees 78/minute 16/minute 118/70 Weight 114.1 kg Paradise Chambers APRN.DIVEMASTER 11/02/2024 12:08 PM Signed This note was created using ReDoc Softwareriter. Subjective Donna Mcmahon is a 24 year old female. 24 year old female with PMH asthma and DM presents for vaginal complaints. Acute onset around October 24 +vaginal discharge +frequency Burning of skin with urinating She was evaluated At [facility] October 24. States I think they gave me antifungal Citing she was given x 2 medicines , cannot recall name (Review of medical record reveals she was prescribed Flagyl and Doxy) Of note, had unprotected sex on 10/19/24 LMP- , endorsses irregular menses at baseline Denies abdominal pain Denies N/V/D Denies skin rash or lesions. The history is provided by the patient. No teller vault was used. Vaginal Problem This is a new problem. The current episode started 1 to 4 weeks ago. The problem occurs constantly. The problem has been waxing and waning. Associated symptoms include urinary symptoms. Pertinent negatives include no abdominal pain, anorexia, arthralgias, change in bowel habit, chest pain, chills, congestion, coughing, diaphoresis, fatigue, fever, headaches, joint swelling, myalgias, nausea, neck pain, numbness, rash, sore throat, swollen glands, vertigo, visual change, vomiting or weakness. Exacerbated by: urinating. Treatments tried: Flagyl and Doxy. The treatment provided no relief. PAST MEDICAL HISTORY Diagnosis Date Mild intermittent asthma without complication PCOS (polycystic ovarian syndrome) PAST SURGICAL HISTORY Procedure Laterality Date STRABISMUS SURG PT W SCAR EO MUSCL ALLERGIES Amoxicillin-Pot Clavulanate and Vancomycin MEDICATIONS doxycycline hyclate (VIBRAMYCIN) 100 mg capsule metroNIDAZOLE (FLAGYL) 500 mg tablet metFORMIN ER (GLUCOPHAGE XR) 500 mg 24 hr tablet Take 1 tablet by mouth daily with breakfast. albuterol HFA (PROVENTIL HFA, VENTOLIN HFA) 90 mcg/actuation inhaler Inhale 2 Puffs as instructed every 4 hours as needed. (Patient taking differently: Inhale 2 Puffs as instructed every 4 hours as needed for wheezing/shortness of breath.) albuterol (PROVENTIL) 2.5 mg /3 mL (0.083 %) nebulizer solution Use 3 mL via nebulizer every 4 hours as needed for wheezing/shortness of breath. valACYclovir (VALTREX) 500 mg tablet Take 1,000 mg by mouth as needed (outbreaks). Lancets lancets Test blood sugar(s) one times daily. Dx: Type 2 DM - Controlled E11.9 Insulin: No blood sugar diagnostic (BLOOD GLUCOSE TEST) test strip Test blood sugar(s) one times daily. Dx: Type 2 DM - Controlled E11.9 Insulin: No medroxyPROGESTERone (DEPO-PROVERA) 150 mg/mL (Patient not taking: Reported on 10/21/2024) cetirizine (ZYRTEC) 10 mg tablet Take 1 tablet by mouth once daily. (Patient taking differently: Take 10 mg by mouth as needed for cold/allergy symptoms.) FAMILY HISTORY Problem Relation Age of Onset Hypertension Father Social History Tobacco Use Smoking status: Never Smokeless tobacco: Never Vaping Use Vaping status: Never Used Substance Use Topics Alcohol use: Not Currently Drug use: Never Review of Systems Constitutional: Negative for chills, diaphoresis, fatigue and fever. HENT: Negative for congestion and sore throat. Eyes: Negative for pain, discharge and itching. Respiratory: Negative for apnea, cough, choking and chest tightness. Cardiovascular: Negative for chest pain. Gastrointestinal: Negative for abdominal pain, anorexia, change in bowel habit, nausea and vomiting. Genitourinary: Positive for dysuria and vaginal discharge. Negative for difficulty urinating, frequency and urgency. Musculoskeletal: Negative for arthralgias, joint swelling, myalgias and neck pain. Skin: Negative for color change, pallor and rash. Allergic/Immunologic: Negative for environmental allergies, food allergies and immunocompromised state. Neurological: Negative for dizziness, vertigo, facial asymmetry, weakness, numbness and headaches. Hematological: Negative for adenopathy. Does not bruise/bleed easily. Psychiatric/Behaviora l: Negative for agitation and behavioral problems. Objective BP 118/70 Pulse 78 Temp 36.9 ?C (98.4 ?F) Resp 16 Wt 114.1 kg (251 lb 8.7 oz) LMP (LMP Unknown) SpO2 98% BMI 41.86 kg/m? Physical Exam Vitals and nursing note reviewed. Constitutional: General: She is not in acute distress. Appearance: Normal appearance. She is normal weight. She is not ill-appearing, toxic-appearing or diaphoretic. HENT: Head: Normocephalic and atraumatic. Right (more content not included)... Normal [facility] 11-02-2024 [facility] DONNA MCMAHON ([id number]) 2 F Date Time Provider Department 11/02/24 PODLOGAR, YING RAMIREZ During your visit today, we recorded the following information about you: Marc Eubanks, RN 11/02/2024 11:52 AM Signed Pt reports she was just seen in [facility] and provider told her would send Rx's for a cream and suppository for her yeast infection. Reports [facility] pharmacy has not received them yet. Please advise patient. Carol Glasgow LPN 11/04/2024 9:12 AM Signed My chart messages sent to pt via [employer]. Pt reviewed @ 1:37 am 11/03 Carol Glasgow LPN Allergies As of Date: 11/02/2024 Noted Allergy Reaction AMOXICILLIN-POT CLAVULANATE 05/03/2022 2 - Rash VANCOMYCIN 11/08/2017 12 - Shortness of Breath Date Reviewed: 11/02/2024 Reviewed by: Esther Neri MA - Fully Assessed Reason for Visit: Patient Question [1477] Prescriptions as of 11/04/2024 - doxycycline hyclate (VIBRAMYCIN) 100 mg capsule - metroNIDAZOLE (FLAGYL) 500 mg tablet - Miconazole Nitrate (MONISTAT 3) 200 mg/5 gram (4 %) crea Use 1 Applicator vaginally once daily for 3 days. - metFORMIN ER (GLUCOPHAGE XR) 500 mg 24 hr tablet Take 1 tablet by mouth daily with breakfast. - albuterol HFA (PROVENTIL HFA, VENTOLIN HFA) 90 mcg/actuation inhaler Inhale 2 Puffs as instructed every 4 hours as needed. - blood sugar diagnostic (BLOOD GLUCOSE TEST) test strip Test blood sugar(s) one times daily. Dx: Type 2 DM - Controlled E11.9 Insulin: No - medroxyPROGESTERone (DEPO-PROVERA) 150 mg/mL - albuterol (PROVENTIL) 2.5 mg /3 mL (0.083 %) nebulizer solution Use 3 mL via nebulizer every 4 hours as needed for wheezing/shortness of breath. - valACYclovir (VALTREX) 500 mg tablet Take 1,000 mg by mouth as needed (outbreaks). - cetirizine (ZYRTEC) 10 mg tablet Take 1 tablet by mouth once daily. - Lancets lancets Test blood sugar(s) one times daily. Dx: Type 2 DM - Controlled E11.9 Insulin: No Problem List As Of Date 11/02/2024 Noted Resolved Acute bilateral low back pain with bilateral sc*08/27/2021 Type 2 diabetes mellitus without complication, *09/17/2021 Obesity, Class II, BMI 35-39.9 [E66.812] 03/03/2023 Obesity, Class I, BMI 30-34.9 [E66.811] 03/31/2023 Encounter Status:Closed by CAROL GLASGOW on 11/04/24 Normal [facility] GLUCOSE, BLOOD (POC)on 11-02 Glucose [Mass/Vol] 213 mg/dL Abnormal 74 - 99 mg/dL [facility] Comment on above: Glu2: Critical Notif ied Location: [place], [address] [place] [address], [id number] The Accu-Chek Inform II glucose meter has not been approved for testing on patients receiving intensive medical intervention or therapy and results from this point of care glucose test should not be used for patient management decisions in these cases. Inaccurate results may also occur from other interfering factors, such as N-acetylcysteine (blood concentrations of greater than 5mg/dL), galactose, extremes of hematocrit (<10 or >65), or high doses of ascorbic acid (vitamin C) greater than 3mg/dL. Consider alternate testing mechanisms (e.g. core lab, blood gas instrument) in the above situations. Interpretation and review of laboratory results Abnormal [facility] UA DIP, URINE (POC)on 2024 BILIRUBIN UA (POCT) Negative Negative [facility] CLARITY UA (POCT) Clear [facility] COLOR UA (POCT) Yellow [facility] GLUCOSE UA (POCT) >=1000 Abnormal Negative mg/dL [facility] Hemoglobin Ql (U) Negative Negative [facility] Interpretation and review of laboratory results Abnormal [facility] KETONE UA (POCT) Negative Negative mg/dL [facility] LEUKOCYTES UA (POCT) Negative Negative [facility] NITRITE UA (POCT) Negative Negative [facility] PH UA (POCT) 5.5 4.5 - 8.0 [facility] Protein Ql (U) Negative Negative mg/dL [facility] SPECIFIC GRAVITY UA (POCT) 1.020 1.005 - 1.030 [facility] UROBILINOGEN UA (POCT) 0.2 Normal E.U./d L [facility] Location:[address], [place], [address] [facility] POINT OF CARE [facility] UA DIP,URINE HCG (POC)on Beta HCG ( test) Ql (U) Negative Negative [facility] Comment on above: Location:[address], [address] Caddy Packer (POCT) Internal QC [facility] Location:[address], [address] [facility] POINT OF CARE [facility] CTPCRon 10-26-2024 C. trachomatis Interp Normal See CT Interp N [facility] Comment on above: Result Comment: C. t rachomatis DNA not detected. Specimen is presumptive negative for C. trachomatis. A negative result does not preclude C. trachomatis infection because results depend on adequate specimen collection, absence of inhibitors, and sufficient DNA to be detected. See CT Interp N Performed By: #### C TPCR, [email or web address] #### [place] [address] C.trachomatis PCR Negative Normal Negative [facility] Comment on above: Result Comment: Mole cular (PCR) assay performed on the [employer]00 system. Performed By: #### C TPCR, [email or web address] #### [place] [address] Chlam Source Cervix Normal [facility] Comment on above: Result Comment: Au sport tube received with two swabs. Review collection procedure. Inappropriate collection may cause aberrant results. Performed By: #### C TPCR, [email or web address] #### [place] [address] [id number] 10-26-2024 GC PCR Source Cervix Normal [facility] Comment on above: Result Comment: Au sport tube received with two swabs. Review collection procedure. Inappropriate collection may cause aberrant results. Performed By: #### C TPCR, [email or web address] #### [place] [address] N. gonorrhoeae (PCR) Negative Normal Negative [facility] Comment on above: Result Comment: Mole cular (PCR) assay performed on the [employer]00 System. Performed By: #### C TPCR, [email or web address] #### [place] [address] N. gonorrhoeae Interp Normal See NG Interp N [facility] Comment on above: Result Comment: N. g onorrhoeae DNA not detected. Specimen is presumptive negative for N. gonorrhoeae. A negative result does not preclude Neisseria gonorrhoeae infection because results depend on adequate specimen collection, absence of inhibitors, and sufficient DNA to be detected. See NG Interp N Performed By: #### C TPCR, [email or web address] #### [place] [id number] .Urinalysis Microscopic (AO) on 10-25-2024 UA Mucous 1+ /hpf Normal [facility] Comment on above: Performed By: #### U AMICAO, UA, PREGU ####[address] [place], [place] [address] UA RBC 0-5 Abnormal None Seen [facility] Comment on above: Performed By: #### U AMICAO, UA, PREGU ####[address] [place], [place] [address] UA Squam Epithelial 0-5 Abnormal None Seen [facility] Comment on above: Performed By: #### U AMICAO, UA, PREGU ####[address] [place], [place] [address] UA WBC 0-5 Abnormal None Seen [facility] Comment on above: Performed By: #### U AMICAO, UA, PREGU ####[address] [place], [place] [address] PREGUon 10-25-2024 HCG ( test) Ql (U) Negative Normal [facility] Comment on above: Performed By: #### U AMICAO, UA, PREGU ####[address] [place], [place] [address] test (u) int Not detected Invalid Interpretation Code [facility] Comment on above: Performed By: #### U AMICAO, UA, PREGU ####[address] [place], [place] [address] UAon 10-25-2024 Color (U) Yellow Normal [facility] Comment on above: Performed By: #### U AMICAO, UA, PREGU ####[address] [place], [place] [address] Glucose (U) [Mass/Vol] 100 mg/dL Abnormal Negative [facility] Comment on above: Performed By: #### U AMICAO, UA, PREGU ####[address] [place], [place] [address] Ketones Ql (U) Negative Normal Negative [facility] Comment on above: Performed By: #### U AMICAO, UA, PREGU ####[address] [place] [address] UA Appear Clear Normal Clear [facility] Comment on above: Performed By: #### U AMICAO, UA, PREGU ####[address] [place] [address] UA Blood Trace Abnormal Negative [facility] Comment on above: Performed By: #### U AMICAO, UA, PREGU ####[address] [place] [address] UA Leuk Est Trace Abnormal Negative [facility] Comment on above: Performed By: #### U AMICAO, UA, PREGU ####[address] [place] [address] UA Nitrite Negative Normal Negative [facility] Comment on above: Performed By: #### U AMICAO, UA, PREGU ####[place] [address] UA pH 5.5 Normal 5.0 - 8.0 [facility] Comment on above: Performed By: #### U AMICAO, UA, PREGU ####[place] [address] UA Protein 30 mg/dL Normal Negative [facility] Comment on above: Performed By: #### U AMICAO, UA, PREGU ####[place] [address] UA Spec Grav >=1.030 Abnormal 1.015-1.025 [facility] Comment on above: Performed By: #### U AMICAO, UA, PREGU ####[address] [place] [address] UA Urobilinogen 0.2 E.U./dL Normal 0.2-1.0 [facility] Comment on above: Performed By: #### U AMICAO, UA, PREGU ####[place] [address] Urobilinogen (U) [Mass/Vol] Negative Normal Negative [facility] Comment on above: Performed By: #### U DEENA UA, PREGU ####[address] [place], [place] [address] UA Specimen Type Void Normal [facility] Comment on above: Performed By: #### U AMICAO, UA, PREGU ####[address] [place], [place] [address] CNOVon 10-21-2024 CNOV Office Visit (UCTR ) DONNA MCMAHON ([id number]) 2 F Date Time Provider Department 10/21/24 9:15 AM GIORGI GROVES [facility] During your visit today, we recorded the following information about you: Temperature Pulse Respiration Blood pressure 98.3 degrees 108/minute 18/minute 141/87 Weight 111.3 kg Giorgi Groves APRN.DIVEMASTER 10/21/2024 9:35 AM Signed Subjective HPI Nontoxic-appearing female presents urgent care chief complaint possible dental infection. Duration of symptoms 3 days. Associated symptoms painful lump on anterior lower mandibular line. Presents today for evaluation. OTC medications none. Denies any trauma. No difficulty falling. Secretions decreased range of motion neck trismus or swelling elevation of floor of mouth. Past medical history prescription medications allergies reviewed. BP 141/87 Pulse 108 Temp 36.8 ?C (98.3 ?F) Resp 18 Wt 111.3 kg (245 lb 6 oz) LMP (LMP Unknown) SpO2 96% BMI 40.83 kg/m? Hr 90 .Patient presents with: Mouth/Lip Problem: Bottom front gum line painful and swollen x3 days PAST MEDICAL HISTORY Diagnosis Date Mild intermittent asthma without complication PCOS (polycystic ovarian syndrome) PAST SURGICAL HISTORY Procedure Laterality Date STRABISMUS SURG PT W SCAR EO MUSCL ALLERGIES Amoxicillin-Pot Clavulanate and Vancomycin MEDICATIONS blood sugar diagnostic (BLOOD GLUCOSE TEST) test strip Test blood sugar(s) one times daily. Dx: Type 2 DM - Controlled E11.9 Insulin: No albuterol (PROVENTIL) 2.5 mg /3 mL (0.083 %) nebulizer solution Use 3 mL via nebulizer every 4 hours as needed for wheezing/shortness of breath. valACYclovir (VALTREX) 500 mg tablet Take 1,000 mg by mouth as needed (outbreaks). cetirizine (ZYRTEC) 10 mg tablet Take 1 tablet by mouth once daily. (Patient taking differently: Take 10 mg by mouth as needed for cold/allergy symptoms.) Lancets lancets Test blood sugar(s) one times daily. Dx: Type 2 DM - Controlled E11.9 Insulin: No cephALEXin (KEFLEX) 500 mg capsule Take 1 capsule by mouth three times a day for 5 days. metFORMIN ER (GLUCOPHAGE XR) 500 mg 24 hr tablet Take 1 tablet by mouth daily with breakfast. albuterol HFA (PROVENTIL HFA, VENTOLIN HFA) 90 mcg/actuation inhaler Inhale 2 Puffs as instructed every 4 hours as needed. (Patient taking differently: Inhale 2 Puffs as instructed every 4 hours as needed for wheezing/shortness of breath.) medroxyPROGESTERone (DEPO-PROVERA) 150 mg/mL (Patient not taking: Reported on 10/21/2024) FAMILY HISTORY Problem Relation Age of Onset Hypertension Father Social History Tobacco Use Smoking status: Never Smokeless tobacco: Never Vaping Use Vaping status: Never Used Substance Use Topics Alcohol use: Not Currently Drug use: Never Review of Systems Constitutional: Negative for chills, fever and malaise/fatigue. HENT: Negative for congestion, ear discharge, ear pain, sinus pain and sore throat. Eyes: Negative for blurred vision, pain, discharge and redness. Respiratory: Negative for cough, hemoptysis, sputum production, shortness of breath, wheezing and stridor. Cardiovascular: Negative for chest pain. Gastrointestinal: Negative for abdominal pain, diarrhea, nausea and vomiting. Musculoskeletal: Negative for myalgias. Skin: Negative for itching and rash. Neurological: Negative for dizziness and headaches. Objective Physical Exam Constitutional: General: She is not in acute distress. Appearance: She is not diaphoretic. HENT: Head: Normocephalic. Jaw: No trismus, tenderness, swelling or pain on movement. Mouth/Throat: Mouth: Mucous membranes are moist. Dentition: Gingival swelling present. No dental tenderness, dental caries or dental abscesses. Pharynx: Oropharynx is clear. Uvula midline. No pharyngeal swelling, oropharyngeal exudate, posterior oropharyngeal erythema or uvula swelling. Eyes: Conjunctiva/sclera: Conjunctivae normal. Pupils: Pupils are equal, round, and reactive to light. Cardiovascular: Rate and Rhythm: Normal rate and regular rhythm. Heart sounds: Normal heart sounds. Pulmonary: Effort: Pulmonary effort is normal. No tachypnea, accessory muscle usage or respiratory distress. Breath sounds: Normal breath sounds. No stridor. No wheezing, rhonchi or rales. Abdominal: General: There is no distension. Palpations: Abdomen is soft. Tenderness: There is no abdominal tenderness. There is no guarding or rebound. Musculoskeletal: Cervical back: Normal range of motion and neck supple. No edema, erythema, rigidity or tenderness. No pain with movement. Normal range of motion. Lymphadenopathy: Cervical: No cervical adenopathy. Skin: General: Skin is warm and dry. Neurological: Mental Status: She is alert and oriented to person, place, and time. ASSESSMENT/PLAN: 1. Dental infection - ICD9: 52 (more content not included)... Normal [facility] CNOVon 09-01-2024 CNOV Office Visit (UCWSTR ) DONNA MCMAHON ([id number]) 2 F Date Time Provider Department 09/01/24 2:45 PM MICHELLE MCWILLIAMS [facility] During your visit today, we recorded the following information about you: Temperature Pulse Respiration Blood pressure 98.1 degrees 96/minute 18/minute 144/92 Weight 111.2 kg Michelle Mcwilliams APRN.[facility] 09/01/2024 3:38 PM Signed Subjective HPI Donna Mcmahon is a 24 year old female who presents with irregular period. She is on Depo-Provera, next injection is due in 2 weeks. She started having a period 30 days ago. She denies heavy bleeding or clots, changes pad every 2 hours. Complains of lower pelvic pain, describes it as a shocking pain like electricity. She denies urinary symptoms. She sees [facility] for [facility] MARKETING SPECIALIST care. Review of Systems Constitutional: Negative for chills and fever. Respiratory: Negative. Cardiovascular: Negative. Gastrointestinal: Positive for abdominal pain. Genitourinary: Negative for dysuria, frequency, hematuria and urgency. See HPI BP 144/92 Pulse 96 Temp 36.7 ?C (98.1 ?F) Resp 18 Wt 111.2 kg (245 lb 2.4 oz) LMP (LMP Unknown) SpO2 96% BMI 40.80 kg/m? PAST MEDICAL HISTORY Diagnosis Date Mild intermittent asthma without complication PCOS (polycystic ovarian syndrome) PAST SURGICAL HISTORY Procedure Laterality Date STRABISMUS SURG PT W SCAR EO MUSCL ALLERGIES Amoxicillin-Pot Clavulanate and Vancomycin MEDICATIONS metFORMIN ER (GLUCOPHAGE XR) 500 mg 24 hr tablet Take 1 tablet by mouth daily with breakfast. medroxyPROGESTERone (DEPO-PROVERA) 150 mg/mL albuterol (PROVENTIL) 2.5 mg /3 mL (0.083 %) nebulizer solution Use 3 mL via nebulizer every 4 hours as needed for wheezing/shortness of breath. valACYclovir (VALTREX) 500 mg tablet Take 1,000 mg by mouth as needed (outbreaks). albuterol HFA (PROVENTIL HFA, VENTOLIN HFA) 90 mcg/actuation inhaler Inhale 2 Puffs as instructed every 4 hours as needed. (Patient taking differently: Inhale 2 Puffs as instructed every 4 hours as needed for wheezing/shortness of breath.) blood sugar diagnostic (BLOOD GLUCOSE TEST) test strip Test blood sugar(s) one times daily. Dx: Type 2 DM - Controlled E11.9 Insulin: No cetirizine (ZYRTEC) 10 mg tablet Take 1 tablet by mouth once daily. (Patient taking differently: Take 10 mg by mouth as needed for cold/allergy symptoms.) Lancets lancets Test blood sugar(s) one times daily. Dx: Type 2 DM - Controlled E11.9 Insulin: No FAMILY HISTORY Problem Relation Age of Onset Hypertension Father Social History Tobacco Use Smoking status: Never Smokeless tobacco: Never Vaping Use Vaping status: Never Used Substance Use Topics Alcohol use: Not Currently Drug use: Never Objective Physical Exam Vitals and nursing note reviewed. Constitutional: General: She is not in acute distress. Appearance: Normal appearance. She is not ill-appearing. Cardiovascular: Rate and Rhythm: Normal rate and regular rhythm. Heart sounds: Normal heart sounds. Pulmonary: Effort: Pulmonary effort is normal. No respiratory distress. Breath sounds: Normal breath sounds. No wheezing or rales. Abdominal: General: There is no distension. Palpations: Abdomen is soft. There is no mass. Tenderness: There is no abdominal tenderness. There is no right CVA tenderness, left CVA tenderness or guarding. Skin: General: Skin is warm and dry. Neurological: Mental Status: She is alert. ASSESSMENT/PLAN: 1. Pelvic pain - ICD9: CGQ1444, ICD10: R10.2 (primary diagnosis) - UA DIP, URINE (POC) - UA DIP,URINE HCG (POC)- negative in office. Office Visit on 09/01/2024 Component Date Value Ref Range Status GLUCOSE UA (POCT) 09/01/2024 500 (A) Negative mg/dL Final BILIRUBIN UA (POCT) 09/01/2024 Negative Negative Final KETONE UA (POCT) 09/01/2024 Negative Negative mg/dL Final SPECIFIC GRAVITY UA (POCT) 09/01/2024 >=1.030 1.005 - 1.030 Final HEMOGLOBIN/BLOOD UA (POCT) 09/01/2024 Negative Negative Final PH UA (POCT) 09/01/2024 5.5 4.5 - 8.0 Final PROTEIN UA (POCT) 09/01/2024 30 (A) Negative mg/dL Final UROBILINOGEN UA (POCT) 09/01/2024 0.2 Normal E.U./dL Final NITRITE UA (POCT) 09/01/2024 Negative Negative Final LEUKOCYTES UA (POCT) 09/01/2024 Negative Negative Final COLOR UA (POCT) 09/01/2024 Yellow Final CLARITY UA (POCT) 09/01/2024 Clear Final Urine hCG (POCT) 09/01/2024 Negative Negative Final Location:[facility], [address] [place] [address], [id number] Caddy Packer (POCT) 09/01/2024 Internal QC OK Final 2. Irregular menstrual bleeding - ICD9: 626.4, ICD10: N92.6 - no blood in urine dip today? - follow up with COMMER[facility] MARKETING SPECIALIST for management of control methods and irregular periods. - Follow-up with your PCP in 3-5 days if symptoms have not improved or sooner if symptoms worsen - Discussed red flags and need for immediate m (more content not included)... Normal [facility] UA DIP, URINE (POC)on 2023 BILIRUBIN UA (POCT) Negative Negative [facility] CLARITY UA (POCT) Clear [facility] COLOR UA (POCT) Yellow [facility] GLUCOSE UA (POCT) 500 mg/dL Abnormal Negative [facility] Hemoglobin Ql (U) Negative Negative [facility] Interpretation and review of laboratory results Abnormal [facility] KETONE UA (POCT) Negative [facility] LEUK[facility]A (POCT) Negative Negative [facility] NITRITE UA (POCT) Negative Negative [facility] PH UA (POCT) 5.5 4.5 - 8.0 [facility] Protein Ql (U) 30 mg/dL Abnormal Negative [facility] SPECIFIC GRAVITY UA (POCT) >=1.030 1.005 - 1.030 [facility] UROBILINOGEN UA (POCT) 0.2 Normal E.U./d L [facility] Location:[address], [address] [facility] POINT OF CARE [facility] UA DIP,URINE HCG (POC)on Beta HCG ( test) Ql (U) Negative Negative [facility] Comment on above: Location:[address], [address] Caddy Packer (POCT) Internal QC OK [facility] Location:[address], [address] [facility] POINT OF CARE [facility] CNOVon 2024 CNOV Office Visit (UCWSTR ) DONNA MCMAHON ([id number]) 2 F Date Time Provider Department 07/31/24 9:00 AM MANI GARDNER [facility] During your visit today, we recorded the following information about you: Temperature Pulse Respiration Blood pressure 98.3 degrees 72/minute 18/minute 132/84 Weight 111.5 kg Mani Gardner MD 2024 9:26 AM Signed Patient presents with: urgency with urination: Urgency x 2-3 days HPI: Symptoms for 3 days. Dysuria: No Frequency: Yes, with urgency Hematuria: No Nausea: No Fever or chills: No Back pain: No Abdominal pain: No Prior UTI: Yes, with Keflex 07/02/2024 for group B strep on culture Metformin started for A1c of 7 in March. She is out of metformin because she does not have insurance currently. PCP follow up in June was cancelled. She has checked her sugar occasionally and it runs 200-230. She is not limiting carbs in her diet well. PAST MEDICAL HISTORY Diagnosis Date Mild intermittent asthma without complication PCOS (polycystic ovarian syndrome) MEDICATIONS: Current Outpatient Medications Medication Sig metFORMIN ER (GLUCOPHAGE XR) 500 mg 24 hr tablet Take 1 tablet by mouth daily with breakfast. albuterol HFA (PROVENTIL HFA, VENTOLIN HFA) 90 mcg/actuation inhaler Inhale 2 Puffs as instructed every 4 hours as needed. (Patient taking differently: Inhale 2 Puffs as instructed every 4 hours as needed for wheezing/shortness of breath.) blood sugar diagnostic (BLOOD GLUCOSE TEST) test strip Test blood sugar(s) one times daily. Dx: Type 2 DM - Controlled E11.9 Insulin: No medroxyPROGESTERone (DEPO-PROVERA) 150 mg/mL albuterol (PROVENTIL) 2.5 mg /3 mL (0.083 %) nebulizer solution Use 3 mL via nebulizer every 4 hours as needed for wheezing/shortness of breath. valACYclovir (VALTREX) 500 mg tablet Take 1,000 mg by mouth as needed (outbreaks). cetirizine (ZYRTEC) 10 mg tablet Take 1 tablet by mouth once daily. (Patient taking differently: Take 10 mg by mouth as needed for cold/allergy symptoms.) Lancets lancets Test blood sugar(s) one times daily. Dx: Type 2 DM - Controlled E11.9 Insulin: No Brompheniramine-Pseud oeph-DM (BROMFED DM) 2-30-10 mg/5 mL syrup Take 5 mL by mouth four times a day as needed. (Patient not taking: Reported on 07/02/2024) sertraline (ZOLOFT) 100 mg tablet Take 1 tablet by mouth once daily. (Patient not taking: Reported on 02/07/2024) No current facility-administered medications for this visit. ALLERGIES: ALLERGIES Allergen Reactions Amoxicillin-Pot Cla* Rash Vancomycin Shortness of Breath VITALS: BP 132/84 Pulse 72 Temp 36.8 ?C (98.3 ?F) (Tympanic) Resp 18 Wt 111.5 kg (245 lb 13 oz) LMP (LMP Unknown) BMI 40.91 kg/m? PHYSICAL EXAM: GEN: NAD HEENT: EOMI, conjunctiva clear, HEART: regular rate and rhythm, no murmurs LUNGS: clear to auscultation, no wheezes or crackles, no increased WOB ABDOMEN: Soft, nondistended, no masses, no suprapubic tenderness BACK: No CVA tenderness ASSESSMENT/PLAN: 1. Urgency of urination - ICD9: 788.63, ICD10: R39.15 (primary diagnosis) - UA DIP, URINE (POC) Positive for 500 mg/dL glucose. No signs of urinary tract infection. Discussed connection between glycosuria and urinary symptoms. 2. Type 2 diabetes mellitus without complication, without long-term current use of insulin ([facility]) - ICD9: 250.00, ICD10: E11.9 We had a discussion about the importance of treating diabetes. Resume - METFORMIN ER 500 MG TABLET,EXTENDED RELEASE 24 HR (30 day Rx sent). Financial counseling will contact the patient to help with coverage for care. She does need to schedule follow-up with primary care. Mani Gardner MD Referring Provider: SELF [[id number]] Allergies As of Date: 2024 Noted Allergy Reaction AMOXICILLIN-POT CLAVULANATE 05/03/2022 2 - Rash VANCOMYCIN 11/08/2017 12 - Shortness of Breath Date Reviewed: 2024 Reviewed by: Steph Edmondson LPN - Fully Assessed Reason for Visit: urgency with urination [Other] Cmt: Urgency x 2-3 days Primary Visit Diagnosis:Urgency of urination [R39.15] Other Visit Diagnosis:Type 2 diabetes mellitus without complication, without long-term current use of insulin (HCC) [E11.9] Order(s):UA DIP, URINE (POC) [[id number]] Order #: [id number]. #:[id number] metFORMIN ER (GLUCOPHAGE XR) 500 mg 24 hr tabletTake 1 tablet by mouth daily with breakfast.Disp: 30 tabletRfl: 0 Prescriptions as of 2024 - metFORMIN ER (GLUCOPHAGE XR) 500 mg 24 hr tablet Take 1 tablet by mouth daily with breakfast. - albuterol HFA (PROVENTIL HFA, VENTOLIN HFA) 90 mcg/actuation inhaler Inhale 2 Puffs as instructed every 4 hours as needed. - blood sugar diagnostic (BLOOD GLUCOSE TEST) test strip Test blood sugar(s) one times daily. Dx: Type 2 DM - Controlled E11.9 Insulin: No - medroxyPROGESTERone (DEPO-PROVERA) 150 mg/m (more content not included)... Normal [facility] UA DIP, URINE (POC)on 2023 BILIRUBIN UA (POCT) Negative Negative [facility] CLARITY UA (POCT) Clear [facility] COLOR UA (POCT) Yellow [facility] GLUCOSE UA (POCT) 500 mg/dL Abnormal Negative [facility] Hemoglobin Ql (U) Negative Negative [facility] Interpretation and review of laboratory results Abnormal [facility] KETONE UA (POCT) Trace Negative mg/dL [facility] LEUKOCYTES UA (POCT) Negative Negative [facility] NITRITE UA (POCT) Negative Negative [facility] PH UA (POCT) 5.5 4.5 - 8.0 [facility] Protein Ql (U) 30 mg/dL Abnormal Negative [facility] SPECIFIC GRAVITY UA (POCT) 1.025 1.005 - 1.030 [facility] UROBILINOGEN UA (POCT) 0.2 Normal E.U./d L [facility] Location: [place], [address], [place], [address] [facility] POINT OF CARE [facility] 07-04-2024 CNPN Telephone ([facility]) DONNA MCMAHON ([id number]) 2 F Date Time Provider Department 07/04/24 DARREL GREENFIELD [facility] During your visit today, we recorded the following information about you: Darrel Greenfield APRN.DIVEMASTER 07/04/2024 11:45 AM Signed Call patient let her know I added Keflex antibiotic according to urine culture. Patient should continue the other medication but add this medication. Esther Neri MA 07/04/2024 1:21 PM Signed mailbox is full. Will try again later. JEN Zavala Stephanie, RN 07/05/2024 8:05 AM Signed Patient notified of results and provider's instructions. Patient verbalizes understanding. Breonna Squires RN Allergies As of Date: 07/04/2024 Noted Allergy Reaction AMOXICILLIN-POT CLAVULANATE 05/03/2022 2 - Rash VANCOMYCIN 11/08/2017 12 - Shortness of Breath Date Reviewed: 07/02/2024 Reviewed by: Caorl Glasgow LPN - Fully Assessed Reason for Visit: Results [95] Order(s):cephALEXin (KEFLEX) 500 mg capsuleTake 1 capsule by mouth two times a day for 7 days.Disp: 14 capsuleRfl: 0 Prescriptions as of 07/05/2024 - cephALEXin (KEFLEX) 500 mg capsule Take 1 capsule by mouth two times a day for 7 days. - metroNIDAZOLE (FLAGYL) 500 mg tablet Take 1 tablet by mouth two times a day for 7 days. - Brompheniramine-Pseud oeph-DM (BROMFED DM) 2-30-10 mg/5 mL syrup Take 5 mL by mouth four times a day as needed. - metFORMIN ER (GLUCOPHAGE XR) 500 mg 24 hr tablet Take 1 tablet by mouth daily with breakfast. - albuterol HFA (PROVENTIL HFA, VENTOLIN HFA) 90 mcg/actuation inhaler Inhale 2 Puffs as instructed every 4 hours as needed. - blood sugar diagnostic (BLOOD GLUCOSE TEST) test strip Test blood sugar(s) one times daily. Dx: Type 2 DM - Controlled E11.9 Insulin: No - sertraline (ZOLOFT) 100 mg tablet Take 1 tablet by mouth once daily. - medroxyPROGESTERone (DEPO-PROVERA) 150 mg/mL - albuterol (PROVENTIL) 2.5 mg /3 mL (0.083 %) nebulizer solution Use 3 mL via nebulizer every 4 hours as needed for wheezing/shortness of breath. - valACYclovir (VALTREX) 500 mg tablet Take 1,000 mg by mouth as needed (outbreaks). - cetirizine (ZYRTEC) 10 mg tablet Take 1 tablet by mouth once daily. - Lancets lancets Test blood sugar(s) one times daily. Dx: Type 2 DM - Controlled E11.9 Insulin: No Problem List As Of Date 07/04/2024 Noted Resolved Acute bilateral low back pain with bilateral sc*08/27/2021 Type 2 diabetes mellitus without complication, *09/17/2021 Obesity, Class II, BMI 35-39.9 [E66.812] 03/03/2023 Obesity, Class I, BMI 30-34.9 [E66.811] 03/31/2023 Prescriptions ordered this encounter Disp Refills Start End CEPHALEXIN 500 MG CAPSULE 14 c* 0 07/04/2024 07/11/2024 Route: ORAL Sig: Take 1 capsule by mouth two times a day for 7 days. Encounter Status:Closed by BREONNA SQUIRES on 07/05/24 [facility] 07-03-2024 CR Telephone (UCWSTR) DONNA MCMAHON ([id number]) 2 F Date Time Provider Department 07/03/24 MICHELLE MCWILLIAMS UCWSTR During your visit today, we recorded the following information about you: Michelle Mcwilliams APRN.DIVEMASTER 07/03/2024 8:14 AM Signed Please advise patient the test was positive for BV. Gonorrhea and chlamydia test was negative. The test for yeast and trichomonas is still processing. I have sent a prescription for flagyl to her pharmacy. Avoid alcohol while taking this medication. Michelle Mcwilliams APRN.Carol Marte LPN 07/03/2024 8:58 AM Signed Unable to reach patient. Mailbox full. Please try again later. RALPH Pierce Brittany L, MA 07/03/2024 1:58 PM Signed Patient active MyChart. Patient notified via [employer] message. Myesha Wyatt MA Allergies As of Date: 07/03/2024 Noted Allergy Reaction AMOXICILLIN-POT CLAVULANATE 05/03/2022 2 - Rash VANCOMYCIN 11/08/2017 12 - Shortness of Breath Date Reviewed: 07/02/2024 Reviewed by: Carol Glasgow LPN - Fully Assessed Reason for Visit: Results [95] Primary Visit Diagnosis:BV (bacterial vaginosis) [N76.0, B96.89] Order(s):metroNIDAZOL E (FLAGYL) 500 mg tabletTake 1 tablet by mouth two times a day for 7 days.Disp: 14 tabletRfl: 0 Prescriptions as of 07/03/2024 - metroNIDAZOLE (FLAGYL) 500 mg tablet Take 1 tablet by mouth two times a day for 7 days. - Brompheniramine-Pseud oeph-DM (BROMFED DM) 2-30-10 mg/5 mL syrup Take 5 mL by mouth four times a day as needed. - metFORMIN ER (GLUCOPHAGE XR) 500 mg 24 hr tablet Take 1 tablet by mouth daily with breakfast. - albuterol HFA (PROVENTIL HFA, VENTOLIN HFA) 90 mcg/actuation inhaler Inhale 2 Puffs as instructed every 4 hours as needed. - blood sugar diagnostic (BLOOD GLUCOSE TEST) test strip Test blood sugar(s) one times daily. Dx: Type 2 DM - Controlled E11.9 Insulin: No - sertraline (ZOLOFT) 100 mg tablet Take 1 tablet by mouth once daily. - medroxyPROGESTERone (DEPO-PROVERA) 150 mg/mL - albuterol (PROVENTIL) 2.5 mg /3 mL (0.083 %) nebulizer solution Use 3 mL via nebulizer every 4 hours as needed for wheezing/shortness of breath. - valACYclovir (VALTREX) 500 mg tablet Take 1,000 mg by mouth as needed (outbreaks). - cetirizine (ZYRTEC) 10 mg tablet Take 1 tablet by mouth once daily. - Lancets lancets Test blood sugar(s) one times daily. Dx: Type 2 DM - Controlled E11.9 Insulin: No Problem List As Of Date 07/03/2024 Noted Resolved Acute bilateral low back pain with bilateral sc*08/27/2021 Type 2 diabetes mellitus without complication, *09/17/2021 Obesity, Class II, BMI 35-39.9 [E66.812] 03/03/2023 Obesity, Class I, BMI 30-34.9 [E66.811] 03/31/2023 Prescriptions ordered this encounter Disp Refills Start End METRONIDAZOLE 500 MG TABLET 14 t* 0 07/03/2024 07/10/2024 Route: ORAL Sig: Take 1 tablet by mouth two times a day for 7 days. Encounter Status:Closed by MYESHA WYATT on 07/03/24 Normal [facility] BACTERIAL VAGINOSIS NAATon 1 Lactobacillus crispatus+gasseri+mosley ii + Gardnerella vaginalis + Atopobium vaginae rRNA VIRGILIO+probe Ql (Vag fld) Positive Abnormal Negative for bacterial vaginosis [facility] Comment on above: Order Comment: Speci men Type: SWABOrdering Facility: [facility] Address: [address] [place] [address] Performed By: #### B VAMP, [id number] ####[facility] LABCLIA [id number] [address] [place] Bacteria Ur Culton Bacteria identified Cx Nom (U) ORGANISM ID: 1 50,000-<100,000 CFU/ml Streptococcus pyogenes (group a streptococcus) Susceptibility testing not performed on beta hemolytic streptococci due to predictable susceptibility to penicillin and other beta lactams. For testing, call Microbiology within 72 hours. Normal [facility] Comment on above: Performed By: #### 6 30-4 ####[facility] LABCLIA [id number] [place] [address] [place] C. trachomatis+N. gonorrhoea e DNA VIRGILIO+probe Ql (Unsp spec)on 07-02-2024 C. trachomatis rRNA VIRGILIO+probe Ql (Unsp spec) Negative Normal Negative for Chlamydia trachomatis by amplificaton [facility] Comment on above: Order Comment: Speci men Type: SWABOrdering Facility: [facility] Address: [address] [place] [address] Performed By: #### B VAMP, [id number] ####[facility] LABIA [id number] [address] [place] N. gonorrhoeae rRNA VIRGILIO+probe Ql (Unsp spec) Negative Normal Negative for Neisseria gonorrhoeae by amplification [facility] Comment on above: Order Comment: Speci men Type: SWABOrdering Facility: [facility] Address: [address] [place] [address] Performed By: #### B VAMP, [id number] ####[facility] LABIA [id number] [place] [address] [place] ITZ/TRICHOMONAS NAATon 1 C. glabrata RNA VIRGILIO+probe Ql (Vag fld) Negative Normal Negative for Itz glabrata [facility] Comment on above: Order Comment: Speci men Type: SWABOrdering Facility: [facility] Address: [address] [place] [address] Performed By: #### C VTV ####[facility] LABCLIA [id number] [address] [place] Itz sp DNA VIRGILIO+probe Ql (Vag fld) Negative Normal Negative for Itz species [facility] Comment on above: Order Comment: Speci men Type: SWABOrdering Facility: [facility] Address: [address] [place] [address] Performed By: #### C VTV ####[facility] LABCLIA [id number] [address] [place] T. vaginalis DNA VIRGILIO+probe Ql (Unsp spec) Negative Normal Negative for Trichomonas vaginalis by amplification [facility] Comment on above: Order Comment: Speci men Type: SWABOrdering Facility: [facility] Address: [address] [place] [address] Performed By: #### C VTV ####[facility] LABCLIA [id number] [address] [place] CNOVon 07-02-2024 CNOV Office Visit (WSTR ) DONNA MCMAHON Marc ([id number]) 01 Date Time Provider Department 07/02/24 5:00 PM DARREL GREENFIELD [facility] During your visit today, we recorded the following information about you: Temperature Pulse Respiration Blood pressure 98.7 degrees 87/minute 18/minute 131/87 Weight 108 kg Darrel Greenfield APRN.DIVEMASTER 07/02/2024 5:22 PM Signed CC: Patient presents with: Urinary Problem: Burning with urination, itching and burning on inside, yellow discharge x 1 day HPI Donna Marc Mcmahon is a 23 year old female who presents with complaint of possible UTI. These symptoms have been present for 1 days. Associated symptoms: abnormal vaginal discharge and vaginal itching Denies: pressure, fever, chills, sweats, and abdominal pain Treatments: nothing The ROS was otherwise negative. PMH, Medications, labs, allergies, and recent past visits with PCP were reviewed and updated as able. PHYSICAL EXAM: BP 131/87 Pulse 87 Temp 37.1 ?C (98.7 ?F) Resp 18 Wt 108 kg (238 lb 1.6 oz) LMP (LMP Unknown) SpO2 98% BMI 39.62 kg/m? General: Well appearing and alert CV: Regular rate and rhythm without obvious murmur Lungs: clear to auscultation bilaterally Back: straight and symmetric Abdomen: soft, nontender, nondistended PAST MEDICAL HISTORY Diagnosis Date Mild intermittent asthma without complication PCOS (polycystic ovarian syndrome) PAST SURGICAL HISTORY Procedure Laterality Date STRABISMUS SURG PT W SCAR EO MUSCL ALLERGIES Amoxicillin-Pot Clavulanate and Vancomycin MEDICATIONS metFORMIN ER (GLUCOPHAGE XR) 500 mg 24 hr tablet Take 1 tablet by mouth daily with breakfast. albuterol HFA (PROVENTIL HFA, VENTOLIN HFA) 90 mcg/actuation inhaler Inhale 2 Puffs as instructed every 4 hours as needed. (Patient taking differently: Inhale 2 Puffs as instructed every 4 hours as needed for wheezing/shortness of breath.) blood sugar diagnostic (BLOOD GLUCOSE TEST) test strip Test blood sugar(s) one times daily. Dx: Type 2 DM - Controlled E11.9 Insulin: No medroxyPROGESTERone (DEPO-PROVERA) 150 mg/mL albuterol (PROVENTIL) 2.5 mg /3 mL (0.083 %) nebulizer solution Use 3 mL via nebulizer every 4 hours as needed for wheezing/shortness of breath. valACYclovir (VALTREX) 500 mg tablet Take 1,000 mg by mouth as needed (outbreaks). cetirizine (ZYRTEC) 10 mg tablet Take 1 tablet by mouth once daily. (Patient taking differently: Take 10 mg by mouth as needed for cold/allergy symptoms.) Lancets lancets Test blood sugar(s) one times daily. Dx: Type 2 DM - Controlled E11.9 Insulin: No Brompheniramine-Pseud oeph-DM (BROMFED DM) 2-30-10 mg/5 mL syrup Take 5 mL by mouth four times a day as needed. (Patient not taking: Reported on 07/02/2024) sertraline (ZOLOFT) 100 mg tablet Take 1 tablet by mouth once daily. (Patient not taking: Reported on 02/07/2024) FAMILY HISTORY Problem Relation Age of Onset Hypertension Father Social History Tobacco Use Smoking status: Never Smokeless tobacco: Never Vaping Use Vaping status: Never Used Substance Use Topics Alcohol use: Not Currently Drug use: Never ASSESSMENT/PLAN: 1. Burning with urination - ICD9: 788.1, ICD10: R30.0 (primary diagnosis) - UA DIP, URINE (POC) - URINE CULTURE 2. Vaginal discharge - ICD9: 623.5, ICD10: N89.8 - BACTERIAL VAGINOSIS NAAT - ITZ/TRICHOMONAS NAAT - GONORRHEA/CHLAMYDIA NAAT No meds given at this time. Self swabbed . Potential red flag symptoms discussed with the patient. Reviewed appropriate action plan to take if red flag symptoms occur. Patient agreeable to treatment plan. Darrel Greenfield APRN.DIVEMASTER Allergies As of Date: 07/02/2024 Noted Allergy Reaction AMOXICILLIN-POT CLAVULANATE 05/03/2022 2 - Rash VANCOMYCIN 11/08/2017 12 - Shortness of Breath Date Reviewed: 07/02/2024 Reviewed by: Carol Glasgow LPN - Fully Assessed Reason for Visit: Urinary Problem [252] Cmt: Burning with urination, itching and burning on inside, yellow discharge x 1 day Primary Visit Diagnosis:Burning with urination [R30.0] Other Visit Diagnosis:Vaginal discharge [N89.8] Order(s):UA DIP, URINE (POC) [5440065] Order #: [id number]. #:[id number] URINE CULTURE [SQURCUL] Order #: [id number]. #:[id number] BACTERIAL VAGINOSIS NAAT [SQBVAMP] Order #: [id number]. #:[id number] ITZ/TRICHOMONAS NAAT [SQCVTV] Order #: [id number]. #:[id number] GONORRHEA/CHLAMYDIA NAAT [SQGCCT] Order #: [id number]. #:[id number] GLUCOSE, BLOOD (POC) [1273832] Order #: [id number]. #:[id number] Prescriptions as of 07/02/2024 - Brompheniramine-Pseud oeph-DM (BROMFED DM) 2-30-10 mg/5 mL syrup Take 5 mL by mouth four times a day as needed. - metFORMIN ER (GLUCOPHAGE XR) 500 mg 24 hr tablet Take 1 tablet by mouth daily with breakfast. - albuterol HFA (ME (more content not included)... [facility] DONNA MCMAHON ([id number]) 2 F Date Time Provider Department 07/02/24 YING PIÑA During your visit today, we recorded the following information about you: Suma Purvis LPN 07/02/2024 11:14 AM Signed Pt was seen in [facility] and put on Diflucan. Pt has taken both doses olegario still having some discharge and itching. Requesting another dose of medication sent to [facility]. Please advise pt. RALPH Murillo Julie, APRN.CNP 07/02/2024 11:26 AM Signed If no change with two doses I would have her follow-up with her [employer]. 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 Pt is asking for a prescription to be sent in. because of this. Please advise pt. RALPH Murillo Julie, APRN.CNP 07/02/2024 1:30 PM Signed If she has took two doses and it is not better she needs to be seen. Ying Piña APRN.Amy Mckeon LPN 07/05/2024 10:20 AM Signed Telephone call to patient. Message left to call office back for update. RALPH Paulino Laurie Lynn, LPN 07/08/2024 9:40 AM Signed Spoke with pt and information listed below given. Pt verbalizes understanding. Suma Purvis LPN Allergies As of Date: 07/02/2024 Noted Allergy Reaction AMOXICILLIN-POT CLAVULANATE 05/03/2022 2 - Rash VANCOMYCIN 11/08/2017 12 - Shortness of Breath Date Reviewed: 07/02/2024 Reviewed by: Carol Glasgow LPN - Fully Assessed Reason for Visit: requesting a refill on medication [Other] Visit Diagnosis:Vaginal discharge [N89.8] Prescriptions as of 07/08/2024 - cephALEXin (KEFLEX) 500 mg capsule Take 1 capsule by mouth two times a day for 7 days. - metroNIDAZOLE (FLAGYL) 500 mg tablet Take 1 tablet by mouth two times a day for 7 days. - Brompheniramine-Pseud oeph-DM (BROMFED DM) 2-30-10 mg/5 mL syrup Take 5 mL by mouth four times a day as needed. - metFORMIN ER (GLUCOPHAGE XR) 500 mg 24 hr tablet Take 1 tablet by mouth daily with breakfast. - albuterol HFA (PROVENTIL HFA, VENTOLIN HFA) 90 mcg/actuation inhaler Inhale 2 Puffs as instructed every 4 hours as needed. - blood sugar diagnostic (BLOOD GLUCOSE TEST) test strip Test blood sugar(s) one times daily. Dx: Type 2 DM - Controlled E11.9 Insulin: No - sertraline (ZOLOFT) 100 mg tablet Take 1 tablet by mouth once daily. - medroxyPROGESTERone (DEPO-PROVERA) 150 mg/mL - albuterol (PROVENTIL) 2.5 mg /3 mL (0.083 %) nebulizer solution Use 3 mL via nebulizer every 4 hours as needed for wheezing/shortness of breath. - valACYclovir (VALTREX) 500 mg tablet Take 1,000 mg by mouth as needed (outbreaks). - cetirizine (ZYRTEC) 10 mg tablet Take 1 tablet by mouth once daily. - Lancets lancets Test blood sugar(s) one times daily. Dx: Type 2 DM - Controlled E11.9 Insulin: No Problem List As Of Date 07/02/2024 Noted Resolved Acute bilateral low back pain with bilateral sc*08/27/2021 Type 2 diabetes mellitus without complication, *09/17/2021 Obesity, Class II, BMI 35-39.9 [E66.812] 03/03/2023 Obesity, Class I, BMI 30-34.9 [E66.811] 03/31/2023 Encounter Status:Closed by SUMA PURVIS on 07/08/24 Normal [facility] GLUCOSE, BLOOD (POC)on 07-02 Glucose [Mass/Vol] 203 mg/dL Abnormal 74 - 99 mg/dL [facility] Comment on above: Location:[address], [place], [place], [facility] The Accu-Chek Inform II glucose meter has not been approved for testing on patients receiving intensive medical intervention or therapy and results from this point of care glucose test should not be used for patient management decisions in these cases. Inaccurate results may also occur from other interfering factors, such as N-acetylcysteine (blood concentrations of greater than 5mg/dL), galactose, extremes of hematocrit (<10 or >65), or high doses of ascorbic acid (vitamin C) greater than 3mg/dL. Consider alternate testing mechanisms (e.g. core lab, blood gas instrument) in the above situations. Interpretation and review of laboratory results Abnormal [facility] UA DIP, URINE (POC)on 2023 BILIRUBIN UA (POCT) Negative Negative [facility] CLARITY UA (POCT) Clear [facility] COLOR UA (POCT) Dark yellow [facility] GLUCOSE UA (POCT) 500 mg/dL Abnormal Negative [facility] Hem[facility] Ql (U) Negative Negative [facility] Interpretation and review of laboratory results Abnormal [facility] KETONE UA (POCT) Trace Negative mg/dL [facility] LEUKOCYTES UA (POCT) Trace Abnormal Negative [facility] NITRITE UA (POCT) Negative Negative [facility] PH UA (POCT) 6.5 4.5 - 8.0 [facility] Protein Ql (U) Negative Negative mg/dL [facility] SPECIFIC GRAVITY UA (POCT) 1.025 1.005 - 1.030 [facility] UROBILINOGEN UA (POCT) 1.0 Normal E.U./d L [facility] Location:[facility], [address] [place] [address], [place], [address] [facility] POINT OF CARE [facility] CNPNon 06-24-2024 CNPN Telephone (UCWSTR) DONNA MCMAHON ([id number]) 2 F Date Time Provider Department 06/24/24 JANENE FINK [facility] During your visit today, we recorded the following information about you: Janene Fink PA 06/24/2024 7:09 AM Signed Please let patient know she tested positive for BV. I have sent metronidazole to the pharmacy. No drinking alcohol while on this medication Erwin Still MA 06/24/2024 8:12 AM Signed Patient notified of results, verbalized understanding of instructions given. Erwin Still MA Allergies As of Date: 06/24/2024 Noted Allergy Reaction AMOXICILLIN-POT CLAVULANATE 05/03/2022 2 - Rash VANCOMYCIN 11/08/2017 12 - Shortness of Breath Date Reviewed: 06/23/2024 Reviewed by: Esther Neri MA - Fully Assessed Reason for Visit: Results [95] Order(s):metroNIDAZOL E (FLAGYL) 500 mg tabletTake 1 tablet by mouth two times a day for 7 days.Disp: 14 tabletRfl: 0 Prescriptions as of 06/24/2024 - metroNIDAZOLE (FLAGYL) 500 mg tablet Take 1 tablet by mouth two times a day for 7 days. - Brompheniramine-Pseud oeph-DM (BROMFED DM) 2-30-10 mg/5 mL syrup Take 5 mL by mouth four times a day as needed. - nitrofurantoin monohydrate and macrocrystal (MACROBID) 100 mg capsule Take 1 capsule by mouth two times a day for 5 days. - metFORMIN ER (GLUCOPHAGE XR) 500 mg 24 hr tablet Take 1 tablet by mouth daily with breakfast. - albuterol HFA (PROVENTIL HFA, VENTOLIN HFA) 90 mcg/actuation inhaler Inhale 2 Puffs as instructed every 4 hours as needed. - blood sugar diagnostic (BLOOD GLUCOSE TEST) test strip Test blood sugar(s) one times daily. Dx: Type 2 DM - Controlled E11.9 Insulin: No - sertraline (ZOLOFT) 100 mg tablet Take 1 tablet by mouth once daily. - medroxyPROGESTERone (DEPO-PROVERA) 150 mg/mL - albuterol (PROVENTIL) 2.5 mg /3 mL (0.083 %) nebulizer solution Use 3 mL via nebulizer every 4 hours as needed for wheezing/shortness of breath. - valACYclovir (VALTREX) 500 mg tablet Take 500 mg by mouth twice daily. - cetirizine (ZYRTEC) 10 mg tablet Take 1 tablet by mouth once daily. - Lancets lancets Test blood sugar(s) one times daily. Dx: Type 2 DM - Controlled E11.9 Insulin: No Problem List As Of Date 06/24/2024 Noted Resolved Acute bilateral low back pain with bilateral sc*08/27/2021 Type 2 diabetes mellitus without complication, *09/17/2021 Obesity, Class II, BMI 35-39.9 [E66.9] 03/03/2023 Obesity, Class I, BMI 30-34.9 [E66.9] 03/31/2023 Prescriptions ordered this encounter Disp Refills Start End METRONIDAZOLE 500 MG TABLET 14 t* 0 06/24/2024 07/01/2024 Route: ORAL Sig: Take 1 tablet by mouth two times a day for 7 days. Encounter Status:Closed by ERWIN STILL on 06/24/24 Normal [facility] Telephone (WSTR) DONNA MCMAHON ([id number]) 2 F Date Time Provider Department 06/24/24 DARREL GREENFIELD [facility] During your visit today, we recorded the following information about you: Darrel Greenfield APRN.DIVEMASTER 06/24/2024 3:25 PM Signed Urine culture came back and requires antibiotic to be changed to Keflex. Keflex was sent to the pharmacy twice a day for a week patient should stop taking the Macrobid and start the Keflex. Carol Glasgow LPN 06/24/2024 4:07 PM Signed Unable to reach patient. Mailbox full/ Please try again later. RALPH Pierce Brittany L, MA 06/25/2024 9:11 AM Signed Patient active MyChart. Patient notified via [employer] message. Myesha Wyatt MA Allergies As of Date: 06/24/2024 Noted Allergy Reaction AMOXICILLIN-POT CLAVULANATE 05/03/2022 2 - Rash VANCOMYCIN 11/08/2017 12 - Shortness of Breath Date Reviewed: 06/23/2024 Reviewed by: Esther Neri MA - Fully Assessed Reason for Visit: Results [95] Order(s):cephALEXin (KEFLEX) 500 mg capsuleTake 1 capsule by mouth two times a day for 7 days.Disp: 14 capsuleRfl: 0 Prescriptions as of 06/25/2024 - metroNIDAZOLE (FLAGYL) 500 mg tablet Take 1 tablet by mouth two times a day for 7 days. - cephALEXin (KEFLEX) 500 mg capsule Take 1 capsule by mouth two times a day for 7 days. - Brompheniramine-Pseud oeph-DM (BROMFED DM) 2-30-10 mg/5 mL syrup Take 5 mL by mouth four times a day as needed. - metFORMIN ER (GLUCOPHAGE XR) 500 mg 24 hr tablet Take 1 tablet by mouth daily with breakfast. - albuterol HFA (PROVENTIL HFA, VENTOLIN HFA) 90 mcg/actuation inhaler Inhale 2 Puffs as instructed every 4 hours as needed. - blood sugar diagnostic (BLOOD GLUCOSE TEST) test strip Test blood sugar(s) one times daily. Dx: Type 2 DM - Controlled E11.9 Insulin: No - sertraline (ZOLOFT) 100 mg tablet Take 1 tablet by mouth once daily. - medroxyPROGESTERone (DEPO-PROVERA) 150 mg/mL - albuterol (PROVENTIL) 2.5 mg /3 mL (0.083 %) nebulizer solution Use 3 mL via nebulizer every 4 hours as needed for wheezing/shortness of breath. - valACYclovir (VALTREX) 500 mg tablet Take 500 mg by mouth twice daily. - cetirizine (ZYRTEC) 10 mg tablet Take 1 tablet by mouth once daily. - Lancets lancets Test blood sugar(s) one times daily. Dx: Type 2 DM - Controlled E11.9 Insulin: No Problem List As Of Date 06/24/2024 Noted Resolved Acute bilateral low back pain with bilateral sc*08/27/2021 Type 2 diabetes mellitus without complication, *09/17/2021 Obesity, Class II, BMI 35-39.9 [E66.9] 03/03/2023 Obesity, Class I, BMI 30-34.9 [E66.9] 03/31/2023 Prescriptions ordered this encounter Disp Refills Start End CEPHALEXIN 500 MG CAPSULE 14 c* 0 06/24/2024 07/01/2024 Route: ORAL Sig: Take 1 capsule by mouth two times a day for 7 days. Medications Discontinued During This Encounter Prescriptions - nitrofurantoin monohydrate and macrocrystal (MACROBID) 100 mg capsule (Discontinued) Take 1 capsule by mouth two times a day for 5 days. Encounter Status:Closed by MYESHA WYATT on 06/25/24 Normal [facility] BACTERIAL VAGINOSIS NAATon 0 06-23-2024 Lactobacillus crispatus+gasseri+mosley ii + Gardnerella vaginalis + Atopobium vaginae rRNA VIRGILIO+probe Ql (Vag fld) Positive Abnormal Negative for bacterial vaginosis [facility] Comment on above: Order Comment: Speci men Type: SWABOrdering Facility: [facility] Address: [address] [place], [place] [address] Performed By: #### Wali LEWIS, [id number] ####[facility] LABCLIA [id number] [place] [address] [place] ESTHER Bacteria Ur Culton Bacteria identified Cx Nom (U) ORGANISM ID: 1 10,000 -<50,000 CFU/ml Streptococcus agalactiae (group b streptococcus) Susceptibility testing not performed on beta hemolytic streptococci due to predictable susceptibility to penicillin and other beta lactams. For testing, call Microbiology within 72 hours. Normal [facility] Comment on above: Performed By: #### 6 30-4 ####[facility] [id number] [place] [address] [place] C. trachomatis+N. gonorrhoea e DNA VIRGILIO+probe Ql (Unsp spec)on 06-23-2024 C. trachomatis rRNA VIRGILIO+probe Ql (Unsp spec) Negative Normal Negative for Chlamydia trachomatis by amplificaton [facility] Comment on above: Order Comment: Speci men Type: SWABOrdering Facility: [facility] Address: [address] [place] [address] Performed By: #### B VAMP, 70109-1 ####[facility] [id number] [address] [place] N. gonorrhoeae rRNA VIRGILIO+probe Ql (Unsp spec) Negative Normal Negative for Neisseria gonorrhoeae by amplification [facility] Comment on above: Order Comment: Speci men Type: SWABOrdering Facility: [facility] Address: [address] [place] [address] Performed By: #### B VAMP, 59613-9 ####[facility] [id number] [place] [address] [place] ITZ/TRICHOMONAS NAATon 0 06-23-2024 C. glabrata RNA VIRGILIO+probe Ql (Vag fld) Negative Normal Negative for Itz glabrata [facility] Comment on above: Order Comment: Speci men Type: SWABOrdering Facility: [facility] Address: [address] [place] [address] Performed By: #### C VTV ####[facility] [id number] [place] [address] [place] Itz sp DNA VIRGILIO+probe Ql (Vag fld) Negative Normal Negative for Itz species [facility] Comment on above: Order Comment: Speci men Type: SWABOrdering Facility: [facility] Address: [address] [place] [address] Performed By: #### C VTV ####[facility] [id number] [address] [place] T. vaginalis DNA VIRGILIO+probe Ql (Unsp spec) Negative Normal Negative for Trichomonas vaginalis by amplification [facility] Comment on above: Order Comment: Speci men Type: SWABOrdering Facility: [facility] Address: [address] [place] [address] Performed By: #### C VTV ####[facility] [id number] [address] [place] CNOVon 06-23-2024 CNOV Office Visit (UCWSTR ) DONNA MCMAHON ([id number]) 2 F Date Time Provider Department 06/23/24 9:00 AM MICHELLE MCWILLIAMS [facility] During your visit today, we recorded the following information about you: Temperature Pulse Respiration Blood pressure 98.7 degrees 104/minute 16/minute 124/90 Weight 110.4 kg Michelle Mcwilliams APRN.DIVEMASTER 06/23/2024 9:37 AM Signed Subjective Nasal Congestion Associated symptoms include congestion, coughing, ear pain (pressure) and a sore throat. Donna Mcmahon is a 23 year old female who presents with cough, bilateral ear pressure, nasal congestion and intermittent sore throat for the past 2 days. She has not had a fever. She is also having dysuria, vaginal burning, itching and discharge for the past 3 or 4 days. She is currently sexually active. She has had a new partner recently. She does not use condoms. She is on Depo for control. Review of Systems Constitutional: Negative for fever. HENT: Positive for congestion, ear pain (pressure) and sore throat. Respiratory: Positive for cough. Cardiovascular: Negative. Genitourinary: Positive for dysuria. Negative for flank pain, frequency, hematuria and urgency. See HPI Musculoskeletal: Negative for myalgias. BP 124/90 Pulse 104 Temp 37.1 ?C (98.7 ?F) Resp 16 Wt 110.4 kg (243 lb 6.2 oz) LMP (LMP Unknown) SpO2 99% BMI 40.50 kg/m? PAST MEDICAL HISTORY Diagnosis Date Mild intermittent asthma without complication PCOS (polycystic ovarian syndrome) PAST SURGICAL HISTORY Procedure Laterality Date STRABISMUS SURG PT W SCAR EO MUSCL ALLERGIES Amoxicillin-Pot Clavulanate and Vancomycin MEDICATIONS metFORMIN ER (GLUCOPHAGE XR) 500 mg 24 hr tablet Take 1 tablet by mouth daily with breakfast. albuterol HFA (PROVENTIL HFA, VENTOLIN HFA) 90 mcg/actuation inhaler Inhale 2 Puffs as instructed every 4 hours as needed. blood sugar diagnostic (BLOOD GLUCOSE TEST) test strip Test blood sugar(s) one times daily. Dx: Type 2 DM - Controlled E11.9 Insulin: No medroxyPROGESTERone (DEPO-PROVERA) 150 mg/mL albuterol (PROVENTIL) 2.5 mg /3 mL (0.083 %) nebulizer solution Use 3 mL via nebulizer every 4 hours as needed for wheezing/shortness of breath. valACYclovir (VALTREX) 500 mg tablet Take 500 mg by mouth twice daily. cetirizine (ZYRTEC) 10 mg tablet Take 1 tablet by mouth once daily. Lancets lancets Test blood sugar(s) one times daily. Dx: Type 2 DM - Controlled E11.9 Insulin: No sertraline (ZOLOFT) 100 mg tablet Take 1 tablet by mouth once daily. (Patient not taking: Reported on 02/07/2024) FAMILY HISTORY Problem Relation Age of Onset Hypertension Father Social History Tobacco Use Smoking status: Never Smokeless tobacco: Never Vaping Use Vaping status: Never Used Substance Use Topics Alcohol use: Not Currently Drug use: Never Objective Physical Exam Vitals and nursing note reviewed. 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 Constitutional: Appearance: Normal appearance. Cardiovascular: Rate and Rhythm: Normal rate. Pulmonary: Effort: Pulmonary effort is normal. Genitourinary: General: Normal vulva. Exam position: Lithotomy position. Labia: Right: Tenderness present. No rash or lesion. Left: Tenderness present. No rash or lesion. Vagina: Erythema and tenderness present. No vaginal discharge. Cervix: Erythema present. No discharge or cervical bleeding. Skin: General: Skin is warm and dry. Neurological: Mental Status: She is alert. ASSESSMENT/PLAN: 1. Vaginal burning - ICD9: 625.8, ICD10: N94.89 (primary diagnosis) - ITZ/TRICHOMONAS NAAT - BACTERIAL VAGINOSIS NAAT 2. Acute cystitis with hematuria - ICD9: 595.0, ICD10: N30.01 - URINE CULTURE - NITROFURANTOIN MONOHYDRATE AND MACROCRYSTAL 100 MG ORAL CAP Office Visit on 06/23/2024 Component Date Value Ref Range Status GLUCOSE UA (POCT) 06/23/2024 500 (A) Negative mg/dL Final BILIRUBIN UA (POCT) 06/23/2024 Negative Negative Final KETONE UA (POCT) 06/23/2024 Negative Negative mg/dL Final SPECIFIC GRAVITY UA (POCT) 06/23/2024 1.015 1.005 - 1.030 Final HEMOGLOBIN/BLOOD UA (POCT) 06/23/2024 Trace-intact (A) Negative Final PH UA (POCT) 06/23/2024 5.5 4.5 - 8.0 Final PROTEIN UA (POCT) 06/23/2024 Negative Negative mg/dL Final UROBILINOGEN UA (POCT) 06/23/2024 0.2 Normal E.U./dL Final NITRITE UA (POCT) 06/23/2024 Negative Negative Final LEUKOCYTES UA (POCT) 06/23/2024 Moderate (A) Negative Final COLOR UA (POCT) 06/23/2024 Yellow Final CLARITY UA (POCT) 06/23/2024 Clear Final 3. Dysuria - ICD9: 788.1, ICD10: R30.0 acute - UA positive for heriberto esterase, hematuria, and glucose - Send urine for culture - Begin treatment with Macrobid 100 mg BID for 5 days - UA DIP, URINE (POC) 4. Vaginal discharge - ICD9: 623.5, ICD10: N89.8 - suspect yeast infection; vaginal tissues are erythematous and (more content not included)... Normal [facility] UA DIP, URINE (POC)on 2023 BILIRUBIN UA (POCT) Negative Negative [facility] CLARITY UA (POCT) Clear [facility] COLOR UA (POCT) Yellow [facility] GLUCOSE UA (POCT) 500 mg/dL Abnormal Negative [facility] Hemoglobin Ql (U) Trace-intact Abnormal Negative [facility] Interpretation and review of laboratory results Abnormal [facility] KETONE UA (POCT) Negative Negative mg/dL [facility] LEUKOCYTES UA (POCT) Moderate Abnormal Negative [facility] NITRITE UA (POCT) Negative Negative [facility] PH UA (POCT) 5.5 4.5 - 8.0 [facility] Protein Ql (U) Negative Negative mg/dL [facility] SPECIFIC GRAVITY UA (POCT) 1.015 1.005 - 1.030 [facility] UROBILINOGEN UA (POCT) 0.2 Normal E.U./d L [facility] Location:[address], [place], [place], [id number] [place] [address] POINT OF CARE [facility] Office Visit Reporton 2023 Office Visit Report [facility] [address] [id number] OFFICE VISIT Date of Service: 06/17/24 MR#: [id number] Acct: [id number] Patient: DONNA MCMAHON Rep #: [id number] : 2000 Provider: MANNY Pathak Age/Sex: 23/F Location: [facility] Status: Signed Intake Vital Signs 05/27/24 11:24 06/17/24 09:03 Height 5 ft 5 in 5 ft 5 in Weight: 241 lb 2 oz BMI 40.1 BP 124/84 H Intake Visit Reasons: Must have preg test first. Depo inj Chief Complaint: control consult Insurance Claims Analyst Required: No Is patient in pain?: No Allergies vancomycin Allergy (Verified 06/17/24 09:03) Anaphylaxis Medications ???Medication ???Instructions ???Recorded ???Confirmed ???Type albuterol sulfate 90 mcg/actuation 2 inh inhalation Q4-6H PRN 12/22/23 06/17/24 History breath activated powder inhaler,sensor valacyclovir 500 mg tablet 500 mg PO BID #180 tabs 05/20/24 06/17/24 Rx (Valtrex) medroxyprogesterone 150 mg/mL 150 mg IM [id number] #1 mL 06/08/24 06/17/24 Rx intramuscular suspension (Depo-Provera) Is last menstrual period known: No Post menopausal: No Patient : No Have you fallen in the past year?: No Nurse's Note: Patient presents for depo injection. Patient states she has not gotten her period back from being on the depo previously. In office urine test negative. Depo given IM to right gluteal, patient tolerated well. Office Meds Depo-Provera 150 mg/mL intramuscular syringe Performing Provider: MANNY Montoya Performing Location: [facility] Administered by: Myesha Cui on 06/17/24 09:36 Dose Route Admin Location Dispensed Lot Number Expiration Date [facility] Man ufacturer 150 mg IM Right Gluteal 1 mL [id number] 09/28/26 19185-694-58 [facility] Results POC Urine Office , Urine Negative Last Edit by Myesha Cui on 06/17/24 09:35 Assessment and Plan Assessment and Plan (1) Contraception management: Status: Acute Qualifiers: Contraceptive encounter type: surveillance Contraceptive type: injectable Qualified Code(s): Z30.42 - Encounter for surveillance of injectable contraceptive Comment: depo today Plan: urine test negative today. Orders: Orders Depo-Provera Injection - Home Med Today Z30.42 - Encounter for surveillance of injectable contraceptive POC Urine Today Z30.42 - Encounter for surveillance of injectable contraceptive Clinical Quality Measures Falls Risk Screening/Assistive Devices Have you fallen in the past year?: No 06/17/24 1001 Date Isa Chow MISSILE AND MISSILE CHECKOUT TECHNICIAN-C Cosigner Signature: Date (if applicable) CC: Normal [facility] Chlamydia/GC VIRGILIO aptimaon CHLAMY,NUC ACID Negative Normal Negative [facility] Comment on above: Performed By: #### M 100.3200, , L7000.1800 #### [facility] [address] [place], [place], [address] GC BY NUC ACID Negative Normal Negative [facility] Comment on above: Result Comment: Perf ormed at: =G - [facility] [address] [id number] Mechanical Energy Engineer: Annita Newberry MD, Phone: [phone] Performed By: #### M 100.3200, , L7000.1800 #### [facility] [address] [place], [address] Genital Culture Comprehensiv pilar 05-28-2024 VAC Reason for Exam: vaginal discharge Normal vaginal nicky isolated. No yeast, Gardnerella, Neisseria or beta-hemolytic Streptococcus isolated. Normal [facility] Comment on above: Performed By: #### M 100.3200, , L7000.1800 #### [facility] [address] [place], [address] Gram Stainon 05-27-2024 GS Reason for Exam: vaginal discharge Gram Stain 3+ White Blood Cells 4+ Gram positive rods No Gram negative diplococci Score = 0 Interpretation: 0-3 Normal, 4-6 Intermediate, 7-10 Positive BV Normal [facility] Comment on above: Performed By: #### M 100.3200, .1999, L7000.1800 #### [facility] [address] [place], [address] HBV surface Ag Ser Qlon 08- HBV surface Ag Ql (S) Negative Normal Negative [facility] Comment on above: Order Comment: Speci men Type: BLOOD SPECIMENOrdering Facility: External Submitter Address: , , Performed By: #### 7 3752-8, 5195-3, 92911-6 ####[facility] [id number] [address] [place] HCV Ab Ser Qlon 05-27-2024 HCV Ab Ql (S) Negative Normal Negative [facility] Comment on above: Order Comment: Speci men Type: BLOOD SPECIMENOrdering Facility: External Submitter Address: , , Result Comment: The result suggests no evidence of active infection with Hepatitis C virus. Should recent infection be suspected, repeat testing may be considered 4-6 weeks after this draw. Performed By: #### 1 6128-1 ####[facility] [id number] [address] OF [facility] HERPES SIMPLEX TYPE 1 AND 2 IGon 05-27-2024 HSV IGG 1 QUALITATIVE Negative Normal Negative [facility] Comment on above: Order Comment: Speci men Type: BLOOD SPECIMENOrdering Facility: External Submitter Address: , , Result Comment: No e vidence of past history of HSV-1 infection. Negative result cannot exclude HSV-1 infection if the specimen collected 3-4 weeks after a primary episode of HSV-1 infection. Early institution of antiviral agents may delay or abrogate specific humoral response. 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 Performed By: #### H SVG12 ####[facility] [id number] [address] OF [place] HIV 1+2 Ab IA Qlon HIV 1 and 2 Ab IA.rapid Nom (S/P/Bld) Normal [facility] Comment on above: Order Comment: Speci men Type: BLOOD SPECIMENOrdering Facility: External Submitter Address: , , Result Comment: Test not indicated. Performed By: #### 7 3752-8, 5195-3, 05808-7 ####[facility] [id number] [address] [facility] HIV 1+2 Ab+HIV1 p24 Ag IA Ql Non-Reactive Normal Nonreactive [facility] Comment on above: Order Comment: Speci men Type: BLOOD SPECIMENOrdering Facility: External Submitter Address: , , Performed By: #### 7 3752-8, 5195-3, ####[facility] [id number] [address] STATES OF [facility] HIV immunoassay testing algorithm interpretation (S/P/Bld) [Interp] Normal [facility] Comment on above: Order Comment: Speci men Type: BLOOD SPECIMENOrdering Facility: External Submitter Address: , , Result Comment: No e vidence of HIV-1 or HIV-2 infection. Should recent infection be suspected, repeat testing may be considered 2-3 weeks after this draw. [place] Rev. Code 3701.243(E): This information has been disclosed to you from confidential records protected from disclosure by state law. ???You shall make no further disclosure of this information without the specific, written, and informed release of the individual to whom it pertains or as otherwise permitted by state law. A general authorization for the release of medical or other information is not sufficient for the purpose of the release of HIV test results or diagnoses. Performed By: #### 7 3752-8, 5195-3, ####[facility] [id number] [place] [address] [place] Anthropology Faculty Member Office Visit Reporton 05-27-2024 Anthropology Faculty Member Office Visit Report [facility] [address] [place] [address], [address] [place] [address] OFFICE VISIT Date of Service: 05/27/24 MR#: [id number] Acct: [id number] Name: DONNA MCMAHON Rep #: [id number] : 2000 Provider: MANNY Pathak Age/Sex: 23/F Location: [facility] Status: Signed Intake Vital Signs 04/07/24 11:33 05/27/24 11:21 05/27/24 11:24 Height 5 ft 5 in 5 ft 5 in 5 ft 5 in Weight: 235 lb BMI 39.1 BP 139/94 H Intake Visit Reasons: BC CONSULT Chief Complaint: control consult Insurance Claims Analyst Required: No Is patient in pain?: No Allergies vancomycin Allergy (Verified 05/27/24 11:22) Anaphylaxis Medications ???Medication ???Instructions ???Recorded ???Confirmed ???Type albuterol sulfate 90 mcg/actuation 2 inh inhalation Q4-6H PRN 12/22/23 05/27/24 History breath activated powder inhaler,sensor valacyclovir 500 mg tablet 500 mg PO BID #180 tabs 05/20/24 05/27/24 Rx (Valtrex) Is last menstrual period known: No Post menopausal: No Patient : No : No Control Method: none PFSH Medical History Diabetes Postcoital bleeding PCOS (polycystic ovarian syndrome) Asthma Surgical History History of strabismus surgery Family History Unknown Diabetes Hyperlipidemia Social History (Updated 05/27/24 @ 11:23 by Linsey Londono) adopted: No household members: none and other housing: apartment current occupational status: employed current occupation: [employer] pets and animals: No history of recent travel: No sexually active: Yes Smoking Status: Never smoker alcohol intake: never substance use type: does not use what type of physical activity do you participate in: none do you feel safe at home: Yes additional social history: single- HPI BC CONSULT Details: DONNA MCMAHON is a 23 year old who presents for control consult; she was previously due in February for depo however did not get this and did not want to start a different OCP/contraception at that time. She presents today interested in contraception as she is sexually active. She reports she interested in this for contraception. She is also interested in STI/D testing; she reports an odor and discharge that is clear to yellow tinged. She states she was intimate with a partner who admitted to have intercourse with multiple partners. Denies fever, chills, pelvic pain. Female Reproductive History Frequency of changing protection: unknown. Questions: metorrhagia: No and sexually active: Yes History 0 Elective abortions Hx Para Spontaneous abortions Hx # Term Pregnancies Ectopic pregnancies Hx # Pregnancies Multiple births # of living children ROS Const ROS Unobtainable: All systems reviewed are unremarkable except as noted in H Constitutional: Denies body ache, chills, fatigue or fever(s) Exam Const General: cooperative, healthy appearing, comfortable, no acute distress, well groomed and well hydrated Nutritional Appearance: well nourished Orientation: alert, awake and oriented x3 HENMT Head: normal to inspection and normocephalic Ears: hearing grossly normal bilaterally and external ears normal Nose: external nose normal Face and sinus: normal facial exam Eyes General: appearance normal, both eyes and all related structures Neck Neck: normal visual inspection, full ROM and no lymphadenopathy Thyroid: thyroid normal Resp Effort Inspection: normal respiratory effort, able to speak in complete sentences and symmetric chest movement GI Inspection: normal to inspection Palpation: soft and no hepatosplenomegaly General: bladder normal to palpation External Female Exam: normal external appearance and normal appearance of the urethra Urethra: normal appearance of the urethra Speculum Exam - Vagina: normal appearance of the vagina, abnormal vaginal discharge malodorous and yellow, no lesions and nontender Speculum Exam - Cervix: normal appearance of the cervix, no lesions and no masses Bimanual Exam- Vagina Uterus: normal bimanual exam, uterine size normal, bladder normal to palpation, normal palpation and non-tender Bimanual Exam- Adnexa, other: normal adnexae, no masses, normal and non-tender Pelvic Support: normal Skin General: no rashes or lesions noted Neuro General: patient alert, patient awake, patient oriented x3 and moves all extremities Psych Appearance: grossly normal Mental Status: mental status grossly normal Affect: normal affect Speech and Movement: speech and movement normal Attitude: cooperative Results POC Urine Office Pregnanc (more content not included)... Normal [facility] Reagin and Treponema pallidu m IgG and IgM [Interp]on 05-27-2024 T. pallidum IgG+IgM IA Ql (S) Non-Reactive Normal Nonreactive [facility] Comment on above: Order Comment: Speci men Type: BLOOD SPECIMENOrdering Facility: External Submitter Address: , , Performed By: #### 7 3752-8, 5195-3, 81060-2 ####[facility] [id number] [place] [address] [place] Reagin+T pallidum IgG+IgM Se rPl-Impon 05-27-2024 Reagin and Treponema pallidum IgG and IgM [Interp] Cannot exclude recent Treponemal infection if specimen collected within 7-10 days after appearance of suspect lesions or 2-3 weeks after an exposure. Clinical correlation is required. Normal [facility] Comment on above: Order Comment: Speci men Type: BLOOD SPECIMENOrdering Facility: External Submitter Address: , , Performed By: #### 7 3752-8, 5195-3, 60497-6 ####[facility] [id number] [place] [address] [place] CNOVon 04-09-2024 CNOV Office Visit (FAMPWS ) DONNA MCMAHON ([id number]) 2 F Date Time Provider Department 04/09/24 10:00 AM YING PIÑA During your visit today, we recorded the following information about you: Pulse Respiration Blood pressure Weight 97/minute 16/minute 130/88 104.9 kg Ying Piña APRN.DIVEMASTER 04/09/2024 10:15 AM Signed 04/09/2024 Patient presents with: Follow Up SUBJECTIVE: This is a 23 year old that is here today for Above Complaints. Patient was concerned about hypoglycemia at last office visit on 12/10/2023. She was to track blood sugars and return in one month. Since last office visit she went to [facility] this week for routine pap smear and she reports they completed a urine sample which showed sugar in urine. Told to come to PCP to discuss. Checking blood sugars every other day 1-2 times per day. Reports some reading over 200. Has not had any more lows. Admits to polyuria but she reports she drinks a lot of water to stay hydrated. She reports she has not been eating well lately- eating more fast food. Tries to stay away from pop. She had previously been on Metformin but had stopped and was doing well controlling blood sugars with diet. Denies visual changes or extremity numbness/tingling. Has not completed dilated eye exam for some time. Has gained about 30# since last May. Not exercising anymore PAST MEDICAL HISTORY Diagnosis Date Mild intermittent asthma without complication PCOS (polycystic ovarian syndrome) ALLERGIES Amoxicillin-Pot Clavulanate and Vancomycin MEDICATIONS Current Outpatient Medications Medication Sig albuterol HFA (PROVENTIL HFA, VENTOLIN HFA) 90 mcg/actuation inhaler Inhale 2 Puffs as instructed every 4 hours as needed. blood sugar diagnostic (BLOOD GLUCOSE TEST) test strip Test blood sugar(s) one times daily. Dx: Type 2 DM - Controlled E11.9 Insulin: No sertraline (ZOLOFT) 100 mg tablet Take 1 tablet by mouth once daily. (Patient not taking: Reported on 02/07/2024) clindamycin (CLEOCIN) 300 mg capsule Take 1 capsule by mouth three times daily. (Patient not taking: Reported on 02/07/2024) medroxyPROGESTERone (DEPO-PROVERA) 150 mg/mL albuterol (PROVENTIL) 2.5 mg /3 mL (0.083 %) nebulizer solution Use 3 mL via nebulizer every 4 hours as needed for wheezing/shortness of breath. valACYclovir (VALTREX) 500 mg tablet Take 500 mg by mouth twice daily. naproxen (NAPROSYN) 500 mg tablet Take 1 tablet by mouth twice daily with meals. Take with food. (Patient not taking: Reported on 02/07/2024) cetirizine (ZYRTEC) 10 mg tablet Take 1 tablet by mouth once daily. Lancets lancets Test blood sugar(s) one times daily. Dx: Type 2 DM - Controlled E11.9 Insulin: No No current facility-administered medications for this visit. Medications and allergies reviewed by this provider. SOCIAL HISTORY Social History Tobacco Use Smoking status: Never Smokeless tobacco: Never Vaping Use Vaping Use: Never used Substance Use Topics Alcohol use: Not Currently Drug use: Never REVIEW OF SYSTEMS All other reviewed and negative other than HPI. OBJECTIVE: BP 130/88 Pulse 97 Resp 16 Wt 104.9 kg (231 lb 3.2 oz) LMP (LMP Unknown) SpO2 98% BMI 38.47 kg/m? . Vital signs reviewed by this provider. APPEARANCE Well appearing, alert, in no acute distress, well-hydrated, well nourished. EYES conjunctiva and sclera normal. HEART RRR with normal S1 and S2, no murmurs, no gallops, no JVD appreciated LUNG clear to auscultation. No wheezes, rhonchi or rales EXTREMITIES Extremities normal, No deformities, No skin discoloration, No edema, and Normal pulses bilaterally. SKIN Skin color, texture, turgor normal, no suspicious rashes or lesions to exposed skin Latest Ref Rng 12/10/2023 01/07/2024 Protein, Total 6.3 - 8.0 g/dL 7.1 Albumin 3.9 - 4.9 g/dL 4.1 Calcium 8.5 - 10.2 mg/dL 9.5 Bilirubin, Total 0.2 - 1.3 mg/dL 0.2 Alkaline Phosphatase 34 - 123 U/L 97 AST 13 - 35 U/L 19 ALT 7 - 38 U/L 15 Glucose 74 - 99 mg/dL 71 (L) BUN 7 - 21 mg/dL 17 Creatinine 0.58 - 0.96 mg/dL 0.68 Sodium 136 - 144 mmol/L 138 Potassium 3.7 - 5.1 mmol/L 4.1 Chloride 97 - 105 mmol/L 104 CO2 22 - 30 mmol/L 24 Anion Gap 9 - 18 mmol/L 10 eGFR >=60 mL/min/1.73m? 126 Cholesterol, Total <200 mg/dL 171 Triglyceride <150 mg/dL 260 (H) HDL Cholesterol >39 mg/dL 32 (L) Non HDL Cholesterol <130 mg/dL 139 (H) Fasting Time hrs 12 VLDL Cholesterol <30 mg/dL 52 (H) TC:HDL Ratio <5.10 5.34 (H) LDL Cholesterol <100 mg/dL 87 LDL:HDL Ratio <2.54 2.72 (H) Creatinine, Ur Random (UCRR) 20.0 - 300.0 mg/dL 97.3 Albumin, Urine Random mg/L 26.5 Albumin/Creat Ratio <30 mg/g 27 Hemoglobin A1C 4.3 - 5.6 % 5.5 Estimated Average Glucose mg/dL 111 Legend: (L) Low (H) High Pneumococcal Vaccine(1 of 2 - PCV) due on 2007 Dilated Retinal Exam Never done Cervical Cancer Scree (more content not included)... Normal [facility] HEMOGLOBIN A1C (POC)on 04-09 HbA1c (Bld) [Mass fraction] 7.0 % Abnormal 4.3 - 5.6 % [facility] Comment on above: Location:[address], [place], [address] Point of care (POC) Hemoglobin A1c (HGBA1C) testing is intended to assess glucose control and provide a management tool for patients known to have diabetes and their healthcare providers. Target HGBA1C levels may depend on specific clinical circumstances. POC HGBA1C is not intended for use as a diagnostic or screening test; laboratory-based testing should be used for diagnostic purposes. The following information is supplemental and may not be applicable to specific diabetes management situations: The POC device waste reduction coordinator provides a normal range of 4.2% to 6.5% for the HGBA1C POC test. However, the [place] [employer] guidelines indicate that patients with HGBA1C in the range of 5.7% to 6.4% are at increased risk for development of diabetes and that intervention by lifestyle modification may be beneficial. A HGBA1C level greater than or equal to 6.5% is considered diagnostic of diabetes, pending confirmatory testing. Use of HGBA1C testing to evaluate glucose control may not be appropriate for patients with hemoglobin variants or other conditions (e.g. anemia) that alter red blood cell lifespan. Interpretation and review of laboratory results Abnormal [facility] CNOVon 03-28-2024 CNOV Office Visit (UCWSTR ) DONNA MCMAHON ([id number]) 2 F Date Time Provider Department 03/28/24 12:45 PM DARREL [facility] During your visit today, we recorded the following information about you: Temperature Pulse Respiration Blood pressure 98.6 degrees 102/minute 16/minute 128/80 Weight 103.8 kg Darrel Greenfield APRN.DIVEMASTER 03/28/2024 1:05 PM Signed CC: Patient presents with: Cough: x 2 days, causing sore throat HPI: Donna Mcmahon is a 23 year old female who presents to the office with complaint of cough, nonproductive and sore throat for a few days. Symptoms are staying the same. Associated symptoms includes sore throat. Denies fever, ear pain, wheezing, dyspnea, nausea, vomiting , pleuritic pain, and diarrhea. Treatments tried include nothing so far. with no relief of symptoms. Sick contacts: unknown. History of asthma, frequent episodes of bronchitis, chronic bronchitis, bronchiectasis or COPD: No Smoker: No Seasonal/environmenta l allergies: No The ROS is otherwise negative. The patient's pmh, medications, allergies, and past visits are reviewed. PHYSICAL EXAM: BP 128/80 Pulse 102 Temp 37 ?C (98.6 ?F) Resp 16 Wt 103.8 kg (228 lb 13.4 oz) LMP (LMP Unknown) SpO2 97% BMI 38.08 kg/m? General appearance: alert, cooperative, pleasant, in no acute distress Head: Normocephalic Eyes: EOM's intact, conjunctiva pink and moist, no icterus, sclera white, non-injected Ears: Right ear: External ear/canal- Normal, TM - clear with good landmarks. Left ear: External ear/canal- Normal, TM - clear with good landmarks Oropharynx:mild erythema, without exudates present Heart: Negative. RRR without obvious murmur, gallop, or rubs. No ectopy. Lungs: clear to auscultation, without rales or wheeze, good air exchange PAST MEDICAL HISTORY Diagnosis Date Mild intermittent asthma without complication PCOS (polycystic ovarian syndrome) PAST SURGICAL HISTORY Procedure Laterality Date STRABISMUS SURG PT W SCAR EO MUSCL ALLERGIES Amoxicillin-Pot Clavulanate and Vancomycin MEDICATIONS medroxyPROGESTERone (DEPO-PROVERA) 150 mg/mL blood sugar diagnostic (BLOOD GLUCOSE TEST) test strip Test blood sugar(s) one times daily. Dx: Type 2 DM - Controlled E11.9 Insulin: No albuterol (PROVENTIL) 2.5 mg /3 mL (0.083 %) nebulizer solution Use 3 mL via nebulizer every 4 hours as needed for wheezing/shortness of breath. valACYclovir (VALTREX) 500 mg tablet Take 500 mg by mouth twice daily. cetirizine (ZYRTEC) 10 mg tablet Take 1 tablet by mouth once daily. Lancets lancets Test blood sugar(s) one times daily. Dx: Type 2 DM - Controlled E11.9 Insulin: No sertraline (ZOLOFT) 100 mg tablet Take 1 tablet by mouth once daily. (Patient not taking: Reported on 02/07/2024) clindamycin (CLEOCIN) 300 mg capsule Take 1 capsule by mouth three times daily. (Patient not taking: Reported on 02/07/2024) albuterol HFA (PROVENTIL HFA, VENTOLIN HFA) 90 mcg/actuation inhaler Inhale 2 Puffs as instructed every 4 hours as needed. naproxen (NAPROSYN) 500 mg tablet Take 1 tablet by mouth twice daily with meals. Take with food. (Patient not taking: Reported on 02/07/2024) FAMILY HISTORY Problem Relation Age of Onset Hypertension Father Social History Tobacco Use Smoking status: Never Smokeless tobacco: Never Vaping Use Vaping Use: Never used Substance Use Topics Alcohol use: Not Currently Drug use: Never ASSESSMENT/PLAN: 1. Sore throat - ICD9: 462, ICD10: J02.9 (primary diagnosis) - STREP A MOLECULAR (POC) - neg 2. Acute cough - ICD9: 786.2, ICD10: R05.1 - BENZONATATE 100 MG CAPSULE Most likely viral in nature Prescription instructions reviewed with patient as applicable. Potential red flag symptoms discussed with the patient. Reviewed appropriate action plan to take if red flag symptoms occur. Patient agreeable to treatment plan. Darrel Greenfield APRN.DIVEMASTER Referring Provider: SELF [200] Allergies As of Date: 03/28/2024 Noted Allergy Reaction AMOXICILLIN-POT CLAVULANATE 05/03/2022 2 - Rash VANCOMYCIN 11/08/2017 12 - Shortness of Breath Date Reviewed: 02/13/2024 Reviewed by: Poly Hunter - Fully Assessed Reason for Visit: Cough [28] Cmt: x 2 days, causing sore throat Primary Visit Diagnosis:Sore throat [J02.9] Other Visit Diagnosis:Acute cough [R05.1] Order(s):STREP A MOLECULAR (POC) [0642108] Order #: [id number] #:[id number] benzonatate (TESSALON PERLES) 100 mg capsuleTake 1 capsule by mouth three times a day as needed for up to 7 days.Disp: 21 capsuleRfl: 0 Prescriptions as of 03/28/2024 - benzonatate (TESSALON PERLES) 100 mg capsule Take 1 capsule by mouth three times a day as needed for up to 7 days. - sertraline (ZOLOFT) 100 mg tablet Take 1 tablet by mouth once daily. - clindamycin (CLEOCIN) 300 mg capsule Take 1 capsule by mouth three time (more content not included)... Normal [facility] STREP A MOLECULAR (POC)on Procedural Control Valid [facility] Strep A (POCT) Negative Negative [facility] Comprehensive metabolic 2000 panelon 12-10-2023 Albumin [Mass/Vol] 4.1 g/dL 3.9 - 4.9 g/dL Cl [facility] ALP [Catalytic activity/Vol] 97 U/L 34 - 123 U/L [facility] ALT [Catalytic activity/Vol] 15 U/L 7 - 38 U/L [facility] Anion gap [Moles/Vol] 10 mmol/L 9 - 18 mmol/L [facility] AST [Catalytic activity/Vol] 19 U/L 13 - 35 U/L [facility] Bilirubin [Mass/Vol] 0.2 mg/dL 0.2 - 1 .3 mg/dL [facility] Calcium [Mass/Vol] 9.5 mg/dL 8.5 - 10. 2 mg/dL [facility] Chloride [Moles/Vol] 104 mmol/L 97 - 10 5 mmol/L [facility] CO2 [Moles/Vol] 24 mmol/L 22 - 30 mmol/L [facility] Creatinine [Mass/Vol] 0.68 mg/dL 0.58 - 0.96 mg/dL [facility] Estimated Glomerular Filtration Rate 126 mL/min/1.73m >=60 mL/min/1.73m [facility] Glucose [Mass/Vol] 71 mg/dL Low 74 - 99 mg/dL [facility] Potassium [Moles/Vol] 4.1 mmol/L 3.7 - 5.1 mmol/L [facility] Protein [Mass/Vol] 7.1 g/dL 6.3 - 8.0 g/dL Cl [facility] Sodium [Moles/Vol] 138 mmol/L 136 - 144 mmol/L [facility] Urea nitrogen [Mass/Vol] 17 mg/dL 7 - 21 mg/d L [facility] HbA1c (Bld)on 12-10-2023 Average glucose Estimated from glycated hemoglobin (Bld) [Mass/Vol] 111 mg/dL [facility] HbA1c (Bld) [Mass fraction] 5.5 % 4.3 - 5.6 % [facility] STREP A MOLECULAR (POC)on Procedural Control Valid [facility] Strep A (POCT) Negative Negative [facility] UA DIP, URINE (POC)on 2022 BILIRUBIN UA (POCT) Negative Negative [facility] CLARITY UA (POCT) Clear [facility] COLOR UA (POCT) Yellow [facility] GLUCOSE UA (POCT) Negative Negative mg/dL [facility] HEMOGLOBIN/BLOOD UA (POCT) Negative Negative [facility] KETONE UA (POCT) Negative Negative mg/dL [facility] LEUKOCYTES UA (POCT) Trace Abnormal Negative [facility] NITRITE UA (POCT) Negative Negative [facility] PH UA (POCT) 5.5 4.5 - 8.0 [facility] Protein Ql (U) Negative Negative mg/dL [facility] SPECIFIC GRAVITY UA (POCT) >=1.030 1.005 - 1.030 [facility] UROBILINOGEN UA (POCT) 0.2 E.U./dL Normal E.U./ dL [facility] UA DIP, URINE (POC)on 2022 BILIRUBIN UA (POCT) Negative Negative [facility] CLARITY UA (POCT) Clear [facility] COLOR UA (POCT) Yellow [facility] GLUCOSE UA (POCT) Negative Negative mg/dL [facility] HEMOGLOBIN/BLOOD UA (POCT) Moderate Abnormal Negative [facility] KETONE UA (POCT) Negative Negative mg/dL [facility] LEUKOCYTES UA (POCT) Trace Abnormal Negative [facility] NITRITE UA (POCT) Negative Negative [facility] PH UA (POCT) 6.0 4.5 - 8.0 [facility] Protein Ql (U) Negative Negative mg/dL [facility] SPECIFIC GRAVITY UA (POCT) >=1.030 1.005 - 1.030 [facility] UROBILINOGEN UA (POCT) 0.2 E.U./dL Normal E.U./ dL [facility] Basophil percentageOrdered B y: Shanice Patel on 01-15-2023 C. trachomatis DNA VIRGILIO+probe Ql (Unsp spec) Negative Negative [facility] HIV 1 and HIV-2 antibody ass ay with HIV-1 p24 antigen detectionOrdered By: Shanice Patel on 01-15-2023 HIV 1+2 Ab+HIV1 p24 Ag IA Ql Non-Reactive Nonreactive [facility] Neisseria gonorrhoeae detect ion by PCROrdered By: Shanice Patel on 01-15-2023 N. gonorrhoeae DNA VIRGILIO+probe Ql (Cervical mucus) Negative Negative [facility] No Panel InformationOrdered By: Shanice Patel on 01-15-2023 Hepatitis C Antibody Non-Reactive Nonreactive [facility] Comment on above: Non Reactive: < 0.8 Equivocal: >/= 0.8 to < 1.0 Reactive: >/= 1.0The CDC recommends that a reactive/equivocal HCV antibody result be followed up by the HCV Nucleic Acid Amplificationtest (126770) Serum Treponema species anti body detectionOrdered By: Shanice Patel on 01-15-2023 Treponema sp Ab Ql (S) Non-Reactive [facility] STREP A MOLECULAR (POC)on Procedural Control Valid [facility] Strep A (POCT) Negative Negative [facility] XR ANKLE MINIMUM 3 VIEWS RIG HTon 09-28-2022 XR ANKLE MINIMUM 3 VIEWS RIGHT ORIGINAL EXAMINATION: THREE XRAY VIEWS OF THE RIGHT ANKLE09/27/2022 10:23 pm ANKLE 3 VIEWS RIGHT COMPARISON: None HISTORY: ORDERING SYSTEM PROVIDED HISTORY: Reason for Exam: fall pain FINDINGS: No acute fracture or dislocation is identified. The ankle mortise and talar dome are normal. The joint spaces are maintained. There is no radiopaque foreign body. IMPRESSION: No acute fracture or dislocation. I have personally reviewed the images of this examination and agree with the resident's findings and interpretation. RECOMMENDATIONS: Unavailable Interpreted by: Timothy Garrison Preliminary Report By: Demario Kirkland Electronically signed By Timothy Garrison Dictated Date: 09/27/2022 10:58:13 PM Prelim Date: 09/27/2022 11:00:18 PM Sign Date: 09/27/2022 11:09:48 PM Ordering Provider: CALOS Ordoñez [facility] ([place]) Influenza virus A and B RNA and SARS-CoV-2 (COVID-19) N gene panel VIRGILIO+probe (Resp)on 09-20-2022 FLUAV RNA VIRGILIO+probe Ql (Unsp spec) Negative Negative for Influenza A by RT-PCR [facility] FLUBV RNA VIRGILIO+probe Ql (Unsp spec) Negative Negative for Influenza B by RT-PCR [facility] SARS-CoV-2 (COVID-19) RNA VIRGILIO+probe Ql (Resp) SARS-CoV-2 (Agent of COVID-19) Not Detected by RT-PCR or equivalent method. Not Detected [facility] STREP A MOLECULAR (POC)on Procedural Control Valid [facility] Strep A (POCT) Negative Negative [facility] .Urinalysis Microscopic (AO) on 09-12-2022 UA Bacteria Trace Abnormal [facility] ([place]) Comment on above: Performed By: #### U AMICAO, UA #### [facility] [address] [place], [place] [address] UA RBC LOADED Abnormal None Seen [facility] ([place] Comment on above: Performed By: #### U AMICAO, UA #### Michelle Burnham [address] [place], [place] [address] UA Squam Epithelial 0-5 Abnormal None Seen [facility] ([place]) Comment on above: Performed By: #### U AMICAO, UA #### [facility] [address] [place], [place] [address] UA WBC 0-5 Abnormal None Seen [facility] ([place] Comment on above: Performed By: #### U AMICAO, UA #### Michelle Burnham [address] [place], [place] [address] LABORATORYOrdered By: Sruthi Desai on 09-12-2022 Appearance (U) Cloudy *ABN* (09/12/22 2:23 PM) Invalid Interpretation Code Clear AO Auto Urine SS Bacteria LM.HPF (Urine sed) [#/Area] Trace /HPF Invalid Interpretation Code AO Auto Urine SS Bilirubin Ql (U) Negative (09/12/22 2:23 PM) Invalid Interpretation Code Negative AO Auto Urine SS Color (U) Red *ABN* (09/12/22 2:23 PM) Invalid Interpretation Code AO Auto Urine SS Glucose Test strip (U) [Mass/Vol] Negative Invalid Interpretation Code Negativemg/dL AO Auto Urine SS HCG ( test) Ql Negative (09/12/22 2:23 PM) Invalid Interpretation Code AO Manual Urine SS Hemoglobin Auto test strip (U) [Mass/Vol] Large *ABN* (09/12/22 2:23 PM) Invalid Interpretation Code Negative AO Auto Urine SS Ketones Ql (U) Negative Invalid Interpretation Code Negativemg/dL AO Auto Urine SS test (u) int Not detected Invalid Interpretation Code AO Manual Urine SS UA Leuk Est Trace *ABN* (09/12/22 2:23 PM) Invalid Interpretation Code Negative AO Auto Urine SS UA Nitrite Negative (09/12/22 2:23 PM) Invalid Interpretation Code Negative AO Auto Urine SS UA pH 5.5 (09/12/22 2:23 PM) Invalid Interpretation Code 5.0 - 8.0 AO Auto Urine SS UA Protein 30 mg/dL Invalid Interpretation Code Negativemg/dL AO Auto Urine SS UA RBC LOADED /HPF Invalid Interpretation Code None Seen/HPF AO Auto Urine SS UA Spec Grav >=1.030 *ABN* (09/12/22 2:23 PM) Invalid Interpretation Code 1.015-1.025 AO Auto Urine SS UA Specimen Type Clean Catch (09/12/22 2:23 PM) Invalid Interpretation Code AO Auto Urine SS UA Squam Epithelial 0-5 /HPF Invalid Interpretation Code None Seen/HPF AO Auto Urine SS UA Urobilinogen 0.2 E.U./dL Invalid Interpretation Code 0.2-1.0E.U./dL AO Auto Urine SS WBC LM.HPF (Urine sed) [#/Area] 0-5 /HPF Invalid Interpretation Code None Seen/HPF AO Auto Urine SS PREGUon 09-12-2022 HCG ( test) Ql (U) Negative Normal [facility] ([place] Comment on above: Performed By: #### U A, PREGU #### [place] [address] test (u) int Not detected Invalid Interpretation Code [facility] ([place] Comment on above: Performed By: #### U A, PREGU #### [place] [address] UAon 09-12-2022 Color (U) Red Abnormal [facility] ([place] Comment on above: Performed By: #### U AMICAO, UA #### [address] [address] Glucose (U) [Mass/Vol] Negative Normal Negative [facility] ([place]) Comment on above: Performed By: #### U AMICAO, UA #### [address] [address] Ketones Ql (U) Negative Normal Negative [facility] ([place] Comment on above: Performed By: #### U AMICAO, UA #### [address] [address] UA Appear Cloudy Abnormal Clear [facility] ([place] Comment on above: Performed By: #### U AMICAO, UA #### [address] [address] UA Blood Large Abnormal Negative [facility] ([place] Comment on above: Performed By: #### U AMICAO, UA #### [address] [address] UA Leuk Est Trace Abnormal Negative [facility] ([place] Comment on above: Performed By: #### U AMICAO, UA #### Michelle [address] [address] UA Nitrite Negative Normal Negative [facility] ([place] Comment on above: Performed By: #### U AMICAO, UA #### Michelle [place] [address] [place], [place] [address] UA pH 5.5 Normal 5.0 - 8.0 [facility] ([place] Comment on above: Performed By: #### U AMICAO, UA #### Michelle [address] [address] UA Protein 30 mg/dL Normal Negative [facility] ([place] Comment on above: Performed By: #### U AMICAO, UA #### Michelle [address] [address] UA Spec Grav >=1.030 Abnormal 1.015-1.025 [facility] ([place] Comment on above: Performed By: #### U AMICAO, UA #### Michelle [address] [address] UA Specimen Type Clean Catch Normal [facility] ([place] Comment on above: Performed By: #### U AMICAO, UA #### [address] [address] UA Urobilinogen 0.2 E.U./dL Normal 0.2-1.0 [facility] ([place] Comment on above: Performed By: #### U AMICAO, UA #### [address] [address] Urobilinogen (U) [Mass/Vol] Negative Normal Negative [facility] ([place] Comment on above: Performed By: #### U AMICAO, UA #### [address] [address] US PELVIS W/ OVARIAN DOPPLER Son 09-12-2022 US PELVIS W/ OVARIAN DOPPLERS ORIGINAL EXAMINATION: Ultrasound OF THE PELVIS with Doppler interrogation 09/12/2022 TECHNIQUE: Transabdominal and endovaginal scanning performed. Dedicated duplex Doppler ultrasound is performed, including color Doppler interrogation and spectral waveform analysis, including attempts to define arterial inflow and venous outflow. COMPARISON: None HISTORY: Pelvic pain. IUD placed 1 month ago. FINDINGS: Uterus measures 7.2 x 4.2 x 3.2 cm. Endometrium measures 5 mm in thickness. Echogenic shadowing focus is noted within the endometrial cavity, compatible with IUD. This extends to the fundal portion of the endometrium, and the position appears appropriate. No focal myometrial masses are seen. Right ovary 4.9 x 3.5 x 2 cm. Left ovary 4 x 2.5 x 2 cm. No ovarian masses or lesions are identified. Doppler interrogation of the ovaries is unremarkable bilaterally. No free pelvic fluid seen. No additional contributory finding seen. IMPRESSION: No acute abnormality identified. IUD position appears appropriate. Doppler interrogation of the ovaries is unremarkable. Interpreted by: Ollie De La Rosa MD Preliminary Report By: Ollie De La Rosa MD Electronically signed By Ollie De La Rosa MD Dictated Date: 09/12/2022 3:42:31 PM Prelim Date: 09/12/2022 3:45:09 PM Sign Date: 09/12/2022 3:45:09 PM Ordering Provider: EMY PEREZ [facility] ([place]) Basophil percentageon 2021 Testosterone [Mass/Vol] 48 ng/dL 13-71 [address] [facility] Work Phone: Chlamydia trachomatis rRNA d etection by probe and target amplification methodon 06-12-2022 C. trachomatis rRNA VIRGILIO+probe Ql (Unsp spec) Negative Negative [facility] Work Phone: Free testosterone percentage on 06-12-2022 Testosterone Free/Testosterone.total [Mass fraction] 2.39 % 0.50-2.80 [facility] Work Phone: HIV 1 and HIV-2 antibody ass ay with HIV-1 p24 antigen detectionon 06-12-2022 HIV 1+2 Ab+HIV1 p24 Ag IA Ql Non-Reactive Nonreactive [facility] Work Phone: Laboratory - Microbiology an d Antimicrobial susceptibilityon 06-12-2022 N. gonorrhoeae DNA VIRGILIO+probe Ql (Unsp spec) Negative Negative [facility] Work Phone: Comment on above: Performed at: =[facility] [address] [place], [place] [id number] Director: Annita Newberry MD, Phone: [phone] No Panel Informationon 06-12 Dehydroepiandrosterone Sulfate 225.0 ug/dL 110.0-431.7 [facility] Work Phone: Comment on above: Performed at: [facility] [address] [id number] Director: Hira Escalante PhD, Phone: [phone] at: - [facility] [address] [id number] Director: Mg Montes MD, Phone: [phone] Hepatitis B Surface Antigen Non-Reactive Nonreactive [facility] Work Phone: Hepatitis C Antibody Non-Reactive Nonreactive [facility] Work Phone: Comment on above: Non Reactive: < 0.8 Equivocal: >/= 0.8 to < 1.0 Reactive: >/= 1.0The CDC recommends that a reactive/equivocal HCV antibody result be followed up by the HCV Nucleic Acid Amplificationtest ([id number]) Herpes Simplex Virus I IgG Antibody < 0.91 index 0.00-0.90 [facility] Work Phone: Comment on above: Negative <0.91 Equiv ocal 0.91 - 1.09 Positive >1.09 Note: Negative indicates no antibodies detected to HSV-1. Equivocal may suggest early infection. If clinically appropriate, retest at later date. Positive indicates antibodies detected to HSV-1. Thyroid Stimulating Hormone (TSH) 1.79 uIU/mL 0.358-3.74 [facility] Work Phone: POC Trichomonas (Rapid) Negative [facility] Work Phone: Serum Treponema species anti body detectionon 06-12-2022 Treponema sp Ab Ql (S) Non-Reactive [facility] Work Phone: Serum herpes simplex virus 2 antibody assay by immunoassay (units/volume)on 06-12-2022 HSV 2 Ab IA Qn (S) 8.11 index 0.00-0.90 [facility] Work Phone: Comment on above: Negative <0.91 Equiv ocal 0.91 - 1.09 Positive >1.09 Note: Negative indicates no HSV-2 antibodies detected. Positive indicates HSV-2 antibodies detected. Equivocal and low positive HSV-2 screens (Index 0.91-5.00) may be false positive and are reflexed to supplemental testing in accordance with CDC guidelines. Serum or plasma 17-hydroxypr ogesterone measurement (mass/volume)on 06-12-2022 17-Hydroxyprogesterone [Mass/Vol] 64 ng/dL . [facility] Work Phone: Comment on above: Adult Female Follicu lar 15 - 70 Luteal 35 - 290Performed at: [facility] [id number] Director: Mg Montes MD, Phone: [phone] Serum or plasma prolactin me asurement (mass/volume)on 06-12-2022 Prolactin [Mass/Vol] 11.5 ng/mL [facility] Work Phone: Comment on above: NORMAL REFERENCE RAN GES FEMALE NON- 2.2 - 30.3 ng/mL 8.1 - 347.6 ng/mL POST-MENOPAUSAL 0.7 - 31.5 ng/mL MALE 2.5 - 17.4 ng/mL Serum or plasma testosterone free measurement (mass/volume)on 06-12-2022 Testosterone Free [Mass/Vol] 1.15 ng/dL 0.10-0.85 [facility] Work Phone: Laboratory - Chemistry and C hemistry - challengeon 05-14-2022 Free T4 [Mass/Vol] 1.10 ng/dL 0.76-1.46 [facility] Work Phone: No Panel Informationon 05-14 Follicle Stimulating Hormone 4.2 mIU/mL [facility] Work Phone: Comment on above: NORMAL REFERENCE RAN GES FEMALE FOLLICULAR 2.3 - 12.6 mIU/mL MID-CYCLE PEAK 5.2 - 17.5 mIU/mL LUTEAL 1.7 - 12.9 mIU/mL POST-MENOPAUSAL ON MHT 5.9 - 72.8 mIU/mL NOT ON MHT 12.7 - 132.2 mlU/mL MALE 0.7 - 10.8 mIU/mL Thyroid Stimulating Hormone (TSH) 1.94 uIU/mL 0.358-3.74 [facility] Work Phone: Serum or plasma prolactin me asurement (mass/volume)on 05-14-2022 Prolactin [Mass/Vol] 14.8 ng/mL [facility] Work Phone: Comment on above: NORMAL REFERENCE RAN GES FEMALE NON- 2.2 - 30.3 ng/mL 8.1 - 347.6 ng/mL POST-MENOPAUSAL 0.7 - 31.5 ng/mL MALE 2.5 - 17.4 ng/mL Serum or plasma thyroperoxid ase antibody assay (units/volume)on 05-14-2022 TPO Ab Qn [IU]/mL 0-34 [facility] Work Phone: Comment on above: Performed at: [email or web address] [address] [id number] Director: Hira Escalante PhD, Phone: [phone] Chlamydia trachomatis rRNA d etection by probe and target amplification methodon 03-21-2022 C. trachomatis rRNA VIRGLIIO+probe Ql (Unsp spec) Negative Negative [facility] Work Phone: Laboratory - Microbiology an d Antimicrobial susceptibilityon 03-21-2022 N. gonorrhoeae DNA VIRGILIO+probe Ql (Unsp spec) Negative Negative [facility] Work Phone: Comment on above: Performed at: =[employer] [address] [id number] Director: Annita Newberry MD, Phone: [phone] No Panel Informationon 03-21 POC Bacterial Vaginitis (Rapid) Negative [facility] Work Phone: POC Trichomonas (Rapid) Negative [facility] Work Phone: Basophil percentageon 2021 C. trachomatis DNA VIRGILIO+probe Ql (Unsp spec) Negative Negative [facility] Work Phone: Laboratory - Chemistry and C hemistry - challengeon 02-06-2022 HCG ( test) Ql (U) Negative [facility] Work Phone: Neisseria gonorrhoeae detect ion by PCRon 02-06-2022 N. gonorrhoeae DNA VIRGILIO+probe Ql (Cervical mucus) Negative Negative [facility] Work Phone: .Auto Diffon 12-15-2021 Basophil, Absolute 0.10 10 3/mcL Normal 0.00-0.19 [facility] ([place]) Comment on above: Performed By: #### G FR, TROPHS, ANEU, BMP, ADIFF, CBC #### [address] [address] Basophils/100 WBC (Bld) 0.9 % Normal 0.0-2.5 A [facility] ([place]) Comment on above: Performed By: #### G FR, TROPHS, ANEU, BMP, ADIFF, CBC #### [address] [address] Eosinophil, Absolute 0.20 10 3/mcL Normal 0.00-0.40 [facility] ([place]) Comment on above: Performed By: #### G FR, TROPHS, ANEU, BMP, ADIFF, CBC #### [address] [address] Eosinophils/100 WBC (Bld) 1.6 % Normal 0.0-7.0 [facility] ([place]) Comment on above: Performed By: #### G FR, TROPHS, ANEU, BMP, ADIFF, CBC #### [address] [address] Lymphocyte, Absolute 3.90 10 3/mcL High 0.77-3.85 A [facility] ([place]) Comment on above: Performed By: #### G FR, TROPHS, ANEU, BMP, ADIFF, CBC #### [address] [address] Lymphocytes/100 WBC (Bld) 38.3 % Normal 10.0-50.0 [facility] ([place]) Comment on above: Performed By: #### G FR, TROPHS, ANEU, BMP, ADIFF, CBC #### [address] [address] Monocyte, Absolute 0.80 10 3/mcL Normal 0.15-1.00 [facility] ([place]) Comment on above: Performed By: #### G FR, TROPHS, ANEU, BMP, ADIFF, CBC #### [address] [address] Monocytes/100 WBC (Bld) 7.5 % Normal 1.7-13.0 [facility] ([place]) Comment on above: Performed By: #### G FR, TROPHS, ANEU, BMP, ADIFF, CBC #### [address] [address] Neutrophils/100 WBC (Bld) 51.7 % Normal 37.0-80.0 [facility] ([place] Comment on above: Performed By: #### G FR, TROPHS, ANEU, BMP, ADIFF, CBC #### [address] [address] .GFRon 12-15-2021 GFR 138 ml/min/1.73sqm Normal [facility] ([place]) Comment on above: Result Comment: GFR Population mean for , Non- Americans Ages 20-29 = 116 mL/min/1.73 sq.m. Ages 30-39 = 107 mL/min/1.73 sq.m. Ages 40-49 = 99 mL/min/1.73 sq.m. Ages 50-59 = 93 mL/min/1.73 sq.m. Ages 60-69 = 85 mL/min/1.73 sq.m. Ages 70+ = 75 mL/min/1.73 sq.m. Chronic Kidney Disease: Less than 60 mL/min/1.73 square meters End Stage Renal Disease: Less than 15 mL/min/1.73 square meters Performed By: #### G FR, TROPHS, ANEU, BMP, ADIFF, CBC #### [address] [address] GFR Non- 114 ml/min/1.73sqm Normal [facility] ([place]) Comment on above: Result Comment: GFR Population mean for , Non- Americans Ages 20-29 = 116 mL/min/1.73 sq.m. Ages 30-39 = 107 mL/min/1.73 sq.m. Ages 40-49 = 99 mL/min/1.73 sq.m. Ages 50-59 = 93 mL/min/1.73 sq.m. Ages 60-69 = 85 mL/min/1.73 sq.m. Ages 70+ = 75 mL/min/1.73 sq.m. Chronic Kidney Disease: Less than 60 mL/min/1.73 square meters End Stage Renal Disease: Less than 15 mL/min/1.73 square meters Performed By: #### G FR, TROPHS, ANEU, BMP, ADIFF, CBC #### [address] [address] .NEUABSon 12-15-2021 Neutrophil, Absolute 5.20 10 3/mcL Normal 2.85-6.16 A [facility] ([place]) Comment on above: Performed By: #### G FR, TROPHS, ANEU, BMP, ADIFF, CBC #### [address] [address] BMPon 12-15-2021 BUN/Creatinine Ratio 14 ratio Normal 7-27 [facility] ([place]) Comment on above: Performed By: #### G FR, TROPHS, ANEU, BMP, ADIFF, CBC #### [address] [address] Calcium [Mass/Vol] 9.3 mg/dL Normal 8.4-10.2 [facility] ([place]) Comment on above: Performed By: #### G FR, TROPHS, ANEU, BMP, ADIFF, CBC #### [address] [address] Chloride [Moles/Vol] 103 mmol/L Normal 98-107 [facility] ([place]) Comment on above: Performed By: #### G FR, TROPHS, ANEU, BMP, ADIFF, CBC #### [address] [address] CO2 [Moles/Vol] 26 mmol/L Normal 22-29 [facility] ([place] Comment on above: Performed By: #### G FR, TROPHS, ANEU, BMP, ADIFF, CBC #### [address] [address] Creatinine [Mass/Vol] 0.66 mg/dL Normal 0.55-1.02 [facility] ([place]) Comment on above: Performed By: #### G FR, TROPHS, ANEU, BMP, ADIFF, CBC #### [address] [address] Electrolyte Balance 12.0 mEq/L Normal 4.0-15.0 [facility] ([place]) Comment on above: Performed By: #### G FR, TROPHS, ANEU, BMP, ADIFF, CBC #### [address] [address] Glucose [Mass/Vol] 95 mg/dL Normal 70-105 [facility] ([place] Comment on above: Performed By: #### G FR, TROPHS, ANEU, BMP, ADIFF, CBC #### [address] [address] Potassium [Moles/Vol] 4.1 mmol/L Normal 3.5-5.1 [facility] ([place]) Comment on above: Performed By: #### G FR, TROPHS, ANEU, BMP, ADIFF, CBC #### [address] [address] Sodium [Moles/Vol] 141 mmol/L Normal 136-145 [facility] ([place]) Comment on above: Performed By: #### G FR, TROPHS, ANEU, BMP, ADIFF, CBC #### [address] [address] Urea nitrogen [Mass/Vol] 9 mg/dL Normal 7-18 [facility] ([place] Comment on above: Performed By: #### G FR, TROPHS, ANEU, BMP, ADIFF, CBC #### [address] [address] CBCon 12-15-2021 Erythrocyte distribution width (RBC) [Ratio] 13.2 % Normal 11.5-14.5 [facility] ([place] Comment on above: Performed By: #### G FR, TROPHS, ANEU, BMP, ADIFF, CBC #### [place] [address] Hematocrit (Bld) [Volume fraction] 40.3 % Normal 37.0-47.0 [facility] ([place] Comment on above: Performed By: #### G FR, TROPHS, ANEU, BMP, ADIFF, CBC #### [place] [address] Hgb 14.0 G/dL Normal 12.0-16.0 [facility] ([place] Comment on above: Performed By: #### Patience FR, TROPHS, ANEU, BMP, ADIFF, CBC #### [place] [address] MCH (RBC) [Entitic mass] 29.9 pg Normal 27.0-31.2 [facility] ([place] Comment on above: Performed By: #### G FR, TROPHS, ANEU, BMP, ADIFF, CBC #### [place] [address] MCHC 34.7 G/dL Normal 33.0-37.0 [facility] ([place] Comment on above: Performed By: #### G FR, TROPHS, ANEU, BMP, ADIFF, CBC #### [place] [address] MCV (RBC) [Entitic vol] 86.4 fL Normal 80.0-94.0 [facility] ([place]) Comment on above: Performed By: #### G FR, TROPHS, ANEU, BMP, ADIFF, CBC #### [place] [address] Platelet 298 10 3/mcL Normal 130-400 [facility] ([place]) Comment on above: Performed By: #### G FR, TROPHS, ANEU, BMP, ADIFF, CBC #### [place] [address] Platelet mean volume (Bld) [Entitic vol] 7.3 fL Low 7.4-10.4 [facility] ([place] Comment on above: Performed By: #### G FR, TROPHS, ANEU, BMP, ADIFF, CBC #### [place] [address] RBC 4.66 10 6/mcL Normal 4.20-5.40 [facility] ([place] Comment on above: Performed By: #### G FR, TROPHS, ANEU, BMP, ADIFF, CBC #### [place] [address] WBC 10.10 10 3/mcL Normal 4.60-10.80 [facility] ([place] Comment on above: Performed By: #### G FR, TROPHS, ANEU, BMP, ADIFF, CBC #### [place] [address] PREGUon 12-15-2021 HCG ( test) Ql (U) Negative Normal [facility] ([place] Comment on above: Performed By: #### U A, PREGU #### [place] [address] test (u) int Not detected Invalid Interpretation Code [facility] ([place] Comment on above: Performed By: #### U A, PREGU #### [place] [address] TROPHSon 12-15-2021 Troponin I High Sensitivity 5.6 ng/L Normal 0.0-51.4 [facility] ([place] Comment on above: Performed By: #### U A, PREGU #### [place] [address] UAon 12-15-2021 Color (U) Yellow Normal [facility] ([place] Comment on above: Performed By: #### U A, PREGU #### [address] [address] Glucose (U) [Mass/Vol] Negative Normal Negative [facility] ([place]) Comment on above: Performed By: #### U A, PREGU #### [address] [address] Ketones Ql (U) Negative Normal Negative [facility] ([place] Comment on above: Performed By: #### U A, PREGU #### [address] [address] UA Appear Clear Normal Clear [facility] ([place] Comment on above: Performed By: #### U A, PREGU #### [address] [address] UA Blood Trace Abnormal Negative [facility] ([place] Comment on above: Performed By: #### U A, PREGU #### [place] [address] UA Leuk Est Negative Normal Negative [facility] ([place] Comment on above: Performed By: #### U A, PREGU #### [address] [address] UA Nitrite Negative Normal Negative [facility] ([place] Comment on above: Performed By: #### U A, PREGU #### [address] [address] UA pH 5.0 Normal 5.0 - 8.0 [facility] ([place] Comment on above: Performed By: #### U A, PREGU #### [address] [address] UA Protein Trace Normal Negative [facility] ([place] Comment on above: Performed By: #### U A, PREGU #### [place] [address] UA Spec Grav >=1.030 Abnormal 1.015-1.025 [facility] ([place] Comment on above: Performed By: #### U A, PREGU #### [place] [address] UA Specimen Type Clean Catch Normal [facility] ([place] Comment on above: Performed By: #### U A, PREGU #### [address] [address] UA Urobilinogen 0.2 E.U./dL Normal 0.2-1.0 [facility] ([place] Comment on above: Performed By: #### U A, PREGU #### [place] [address] [place], [place] [address] Urobilinogen (U) [Mass/Vol] Negative Normal Negative [facility] ([place] Comment on above: Performed By: #### U A, PREGU #### [address] [address] Chlamydia trachomatis rRNA d etection by probe and target amplification methodon 12-11-2021 C. trachomatis rRNA VIRGILIO+probe Ql (Unsp spec) Negative Negative [facility] Work Phone: Gram stain for investigation of transfusion reactionon 12-11-2021 Microscopic observation Gram stain Nom (Unsp spec) [facility] Work Phone: HIV 1 and HIV-2 antibody ass ay with HIV-1 p24 antigen detectionon 12-11-2021 HIV 1+2 Ab+HIV1 p24 Ag IA Ql Non-Reactive Nonreactive [facility] Work Phone: Laboratory - Microbiology an d Antimicrobial susceptibilityon 12-11-2021 N. gonorrhoeae DNA VIRGILIO+probe Ql (Unsp spec) Negative Negative [facility] Work Phone: Comment on above: Performed at: = - L [address] [id number] Director: Annita Newberry MD, Phone: [phone] No Panel Informationon 12-11 Hepatitis B Surface Antigen Non-Reactive Nonreactive [facility] Work Phone: Hepatitis C Antibody Non-Reactive Nonreactive [facility] Work Phone: Comment on above: Non Reactive: < 0.8 Equivocal: >/= 0.8 to < 1.0 Reactive: >/= 1.0The CDC recommends that a reactive/equivocal HCV antibody result be followed up by the HCV Nucleic Acid Amplificationtest (555936) Serum Treponema species anti body detectionon 12-11-2021 Treponema sp Ab Ql (S) Non-Reactive [facility] Work Phone: Thin prep Papanicolaou smear with manual screeningon 12-11-2021 Genital Culture 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 [facility] Work Phone: Genital Culture GPC Poss Enterococcu s sp [facility] Work Phone: .Urinalysis Microscopic (AO) on 11-26-2021 UA RBC 0-5 Abnormal None Seen [facility] ([place] Comment on above: Performed By: #### U A, PREGU #### [address] [address] UA Squam Epithelial 0-5 Abnormal None Seen [facility] ([place] Comment on above: Performed By: #### U A, PREGU #### [place] [address] UA WBC 5-10 Abnormal None Seen [facility] ([place] Comment on above: Performed By: #### U A, PREGU #### [address] [address] LABORATORYOrdered By: Yareli Mcmahon on 11-26-2021 Appearance (U) Clear (11/26/21 7:37 PM) Invalid Interpretation Code Clear AO Auto Urine SS Bilirubin Ql (U) Negative (11/26/21 7:37 PM) Invalid Interpretation Code Negative AO Auto Urine SS Color (U) Yellow (11/26/21 7:37 PM) Invalid Interpretation Code AO Auto Urine SS Glucose Test strip (U) [Mass/Vol] 250 mg/dL Invalid Interpretation Code Negativemg/dL AO Auto Urine SS HCG ( test) Ql Negative (11/26/21 7:37 PM) Invalid Interpretation Code AO Manual Urine SS Hemoglobin Auto test strip (U) [Mass/Vol] Trace *ABN* (11/26/21 7:37 PM) Invalid Interpretation Code Negative AO Auto Urine SS Ketones Ql (U) Negative Invalid Interpretation Code Negativemg/dL AO Auto Urine SS test (u) int Not detected Invalid Interpretation Code AO Manual Urine SS UA Leuk Est Trace *ABN* (11/26/21 7:37 PM) Invalid Interpretation Code Negative AO Auto Urine SS UA Nitrite Negative (11/26/21 7:37 PM) Invalid Interpretation Code Negative AO Auto Urine SS UA pH 5.5 (11/26/21 7:37 PM) Invalid Interpretation Code 5.0 - 8.0 AO Auto Urine SS UA Protein Negative Invalid Interpretation Code Negativemg/dL AO Auto Urine SS UA RBC 0-5 /HPF Invalid Interpretation Code None Seen/HPF AO Auto Urine SS UA Spec Grav >=1.030 *ABN* (11/26/21 7:37 PM) Invalid Interpretation Code 1.015-1.025 AO Auto Urine SS UA Specimen Type Clean Catch (11/26/21 7:37 PM) Invalid Interpretation Code AO Auto Urine SS UA Squam Epithelial 0-5 /HPF Invalid Interpretation Code None Seen/HPF AO Auto Urine SS UA Urobilinogen 0.2 E.U./dL Invalid Interpretation Code 0.2-1.0E.U./dL AO Auto Urine SS WBC LM.HPF (Urine sed) [#/Area] 5-10 /HPF Invalid Interpretation Code None Seen/HPF AO Auto Urine SS PREGUon 11-26-2021 HCG ( test) Ql (U) Negative Normal [facility] ([place] Comment on above: Performed By: #### U A, PREGU #### [address] [address] test (u) int Not detected Invalid Interpretation Code [facility] ([place] Comment on above: Performed By: #### U A, PREGU #### [address] [address] UAon 11-26-2021 Color (U) Yellow Normal [facility] ([place] Comment on above: Performed By: #### U A, PREGU #### [address] [address] Glucose (U) [Mass/Vol] 250 mg/dL Abnormal Negative [facility] ([place]) Comment on above: Performed By: #### U A, PREGU #### [address] [address] Ketones Ql (U) Negative Normal Negative [facility] ([place] Comment on above: Performed By: #### U A, PREGU #### [address] [address] UA Appear Clear Normal Clear [facility] ([place] Comment on above: Performed By: #### U A, PREGU #### [address] [address] UA Blood Trace Abnormal Negative [facility] ([place] Comment on above: Performed By: #### U A, PREGU #### [place] [id number] UA Leuk Est Trace Abnormal Negative [facility] ([place] Comment on above: Performed By: #### U A, PREGU #### [address] [address] UA Nitrite Negative Normal Negative [facility] ([place] Comment on above: Performed By: #### U A, PREGU #### [place] [address] UA pH 5.5 Normal 5.0 - 8.0 [facility] ([place] Comment on above: Performed By: #### U A, PREGU #### [place] [id number] UA Protein Negative Normal Negative [facility] ([place] Comment on above: Performed By: #### U A, PREGU #### [place] [address] UA Spec Grav >=1.030 Abnormal 1.015-1.025 [facility] ([place] Comment on above: Performed By: #### U A, PREGU #### [place] [address] UA Specimen Type Clean Catch Normal [facility] ([place] Comment on above: Performed By: #### U A, PREGU #### [address] [address] UA Urobilinogen 0.2 E.U./dL Normal 0.2-1.0 [facility] ([place] Comment on above: Performed By: #### U A, PREGU #### [place] [address] [place], [place] [address] Urobilinogen (U) [Mass/Vol] Negative Normal Negative [facility] ([place] Comment on above: Performed By: #### U A, PREGU #### [place] [address] [place], [place] [address] Chlamydia trachomatis rRNA d etection by probe and target amplification methodon 11-08-2021 C. trachomatis rRNA VIRGILIO+probe Ql (Unsp spec) Negative Negative [facility] Work Phone: HIV 1 and HIV-2 antibody ass ay with HIV-1 p24 antigen detectionon 11-08-2021 HIV 1+2 Ab+HIV1 p24 Ag IA Ql Non-Reactive Nonreactive [facility] Work Phone: Laboratory - Chemistry and C hemistry - challengeon 11-08-2021 HCG ( test) Ql (U) Negative [facility] Work Phone: Laboratory - Microbiology an d Antimicrobial susceptibilityon 11-08-2021 N. gonorrhoeae DNA VIRGILIO+probe Ql (Unsp spec) Negative Negative [facility] Work Phone: Comment on above: Performed at: =[address] [id number] Director: Annita Newberry MD, Phone: [phone] No Panel Informationon 11-08 Hepatitis C Antibody Non-Reactive Nonreactive [facility] Work Phone: Comment on above: Non Reactive: < 0.8 Equivocal: >/= 0.8 to < 1.0 Reactive: >/= 1.0The CDC recommends that a reactive/equivocal HCV antibody result be followed up by the HCV Nucleic Acid Amplificationtest (829321) Herpes Simplex Virus I IgG Antibody < 0.91 index [facility] Work Phone: Comment on above: Negative <0.91 Equiv ocal 0.91 - 1.09 Positive >1.09 Note: Negative indicates no antibodies detected to HSV-1. Equivocal may suggest early infection. If clinically appropriate, retest at later date. Positive indicates antibodies detected to HSV-1. POC Trichomonas (Rapid) Negative [facility] Work Phone: Serum Treponema species anti body detectionon 11-08-2021 Treponema sp Ab Ql (S) Non-Reactive [facility] Work Phone: Serum herpes simplex virus 2 antibody assay by immunoassay (units/volume)on 11-08-2021 HSV 2 Ab IA Qn (S) < 0.91 index [facility] Work Phone: Comment on above: Negative <0.91 Equiv ocal 0.91 - 1.09 Positive >1.09 Note: Negative indicates no HSV-2 antibodies detected. Positive indicates HSV-2 antibodies detected. Equivocal and low positive HSV-2 screens (Index 0.91-5.00) may be false positive and are reflexed to supplemental testing in accordance with CDC guidelines.Performed at: [facility] [employer] [id number] Director: Hira Escalante PhD, Phone: [phone] XR Lumbar spine 3 Viewson IMPRESSION: Mild narrowing of the L4-5 intervertebral disc space. Regional Loss Prevention Manager: RICHIE Transcribe Date/Time: Jul 30 2021 11:56A Dictated by : JUAN KHOURY MD This examination was interpreted and the report reviewed and electronically signed by: JUAN KHOURY MD on Jul 30 2021 11:57AM [facility] DIVISION OF RADIOLOGY * * *Final Report* * * DATE OF EXAM: Jul 30 2021 11:54AM WOX [id number] - XR LUMBAR 3V AP/LAT/L5-S1 / PROCEDURE REASON: multiple diagnoses * * * * Physician Interpretation * * * * Lumbar spine radiographs HISTORY: 20 years old Clinical information: Acute bilateral low back pain with bilateral sciatica Acute bilateral low back pain with bilateral sciatica pain for a week in center of lower back radiating into both hips and legs no inj TECHNIQUE: Images: XR LUMBAR 3V AP/LAT/L5-S1 Comparison: None. RESULT: Findings: Narrowing of the L4-5 intervertebral disc space. Left-sided curvature of the imaged thoracic spine possibly related to patient positioning. Mild narrowing of the L4-5 intervertebral disc space. No fracture. SI joints are intact. Paraspinous soft tissues are unremarkable in appearance. DIVISION OF RADIOLOGY Provider, Mihai Arrieta - 07/30/2021 * * *Final Report* * * DATE OF EXAM: Jul 30 2021 11:54AM WOX 5228 - XR LUMBAR 3V AP/LAT/L5-S1 / PROCEDURE REASON: multiple diagnoses * * * * Physician Interpretation * * * * Lumbar spine radiographs HISTORY: 20 years old Clinical information: Acute bilateral low back pain with bilateral sciatica Acute bilateral low back pain with bilateral sciatica pain for a week in center of lower back radiating into both hips and legs no inj TECHNIQUE: Images: XR LUMBAR 3V AP/LAT/L5-S1 Comparison: None. RESULT: Findings: Narrowing of the L4-5 intervertebral disc space. Left-sided curvature of the imaged thoracic spine possibly related to patient positioning. Mild narrowing of the L4-5 intervertebral disc space. No fracture. SI joints are intact. Paraspinous soft tissues are unremarkable in appearance. IMPRESSION IMPRESSION: Mild narrowing of the L4-5 intervertebral disc space. Regional Loss Prevention Manager: PSCB Transcribe Date/Time: Jul 30 2021 11:56A Dictated by : JUAN KHOURY MD This examination was interpreted and the report reviewed and electronically signed by: JUAN KHOURY MD on Jul 30 2021 11:57AM EST [facility] Radiology Study observation (narrative) [facility] XR Lumbar spine 3 ViewsOrder ed By: [facility] Provider on 07-30-2021 [facility] Progress Noteon 10-08-2019 Instrument Lens Generator Authentication Interface Message Text Patient ID: Donna Mcmahon is a 19 y.o. female. Her chief complaint(s) include: Follow Up (sinus infection, asthma) Assessment 1. Bilateral otitis media with effusion Plan Donna was seen today for follow up. Diagnoses and all orders for this visit: Bilateral otitis media with effusion - amoxicillin-clavulana te (AUGMENTIN) 875-125 MG tablet; Take 1 Tab (875 mg) by mouth 2 times daily for 10 days Return if symptoms worsen or fail to improve. Subjective She is accompanied by her mother. Follow Up This problem is new. The duration has been 1 week. The course is improving (feels a lot better but not normal). The patient's symptoms have included fever (initially but none now), congestion, rhinorrhea and cough. The patient's symptoms have included no fussiness, no decreased appetite, no decreased fluid intake, no difficulty sleeping, no sore throat, no bilateral ear pain (feels clogged), no headaches, no diarrhea and no vomiting. The symptoms are described as mild. There have been no previous interventions. Primary Care Review of Systems Objective Vital Signs 10/08/19 1017 Temp: 36.7 C (98 F) TempSrc: Temporal Weight: (!) 102 kg There is no height or weight on file to calculate BMI. Physical Exam Constitutional: She appears well. She is active. No distress. HENT: Head: Atraumatic. Right Ear: Tympanic membrane is erythematous (dull and erythematous). Left Ear: Tympanic membrane is erythematous (mild). A purulent effusion is present. Nose: Nasal discharge (yellow nasal drainage) present. Mouth/Throat: Mucous membranes are moist. Eyes: Conjunctivae are normal. Cardiovascular: Normal rate and regular rhythm. Heart murmur not heard. Pulmonary/Chest: Breath sounds normal. There is normal air entry. Neurological: She is alert. Vitals reviewed: Temperature 36.7 C (98 F), temperature source Temporal, weight (!) 102 kg. Normal [facility] Progress Noteon 07-06-2019 Instrument Lens Generator Authentication Interface Message Text Patient ID: Donna Mcmahon is a 18 y.o. female. Her chief complaint(s) include: 18 YEAR WELL CHILD Assessment 1. Encounter for routine child health examination without abnormal findings 2. Exercise counseling 3. Encounter for dietary counseling and surveillance 4. Need for vaccination Plan Donna was seen today for 18 year well child. Diagnoses and all orders for this visit: Encounter for routine child health examination without abnormal findings - Behavioral/Emotional Assessment w Score - PHQ-9 Exercise counseling Encounter for dietary counseling and surveillance Need for vaccination - Meningococcal ACWY (MENACTRA) - Meningococcal B (BEXSERO) - Influenza Vaccine 0.5 mL >= 6 mo Quadrivalent (PF) Return in about 1 year (around 07/06/2020) for well check. Subjective She is accompanied by her mother. 18 YEAR WELL CHILD Home: Donna eats meals with family, has an adult to turn to for help and is permitted and able to make independent decisions. Donna has no home risk identified. Education: She is in 11th grade and is doing well. Eating: Donna eats regular meals including fruits and vegetables, eats breakfast and has a calcium source. Donna does not limit fast food, does not drink non-sweetened liquids and does not have concerns about body appearance. Activities & Sports: She has friends. Drugs: She does not use tobacco, does not use drugs, does not use alcohol and does not vape. Safety: She has a violence free home and has peer relationships free from violence. Sex: Donna is not sexually active. Suicidality: She has ways to cope with stress. PHQ-9 Score: 0 Menstruation Last Menstrual period: hormonal therapy Menstruation: irregular periods Output Urine and Stool Pattern: Urine and Stool Pattern: Normal stool pattern, normal urine pattern. Sleep Sleeping Difficulty: no difficulty sleeping Teen Anticipatory Guidance The following anticipatory guidance was reviewed during the visit: Nutrition: limit junk food/fast food and soft drinks. Safety: use safety helmet/gear with activities and don't carry or use weapons. Social: avoid or limit screen time, explore heritage and cultural diversity, parental limits and consequences for unacceptable behavior and bullying. Health: age appropriate dental care, age appropriate sleep habits, elevated noise and hearing, talk with trusted adult if feeling sad or nervous, learn to manage time and activities, be responsible for attendance/ homework/ course selection, learn about self and strengths, recognize and deal with stress and limit sun exposure/use sunscreen. Screenings Previous Vaccine Reactions: Yes. Life events information was reviewed-no referral needed Tuberculosis Concerns: Negative Tuberculosis Screen Concerns: no TB Risk Factors Hearing Vision Concerns: The caregiver has no concerns about the patient's hearing. The caregiver has no concerns about the patient's vision. Hyperlipidemia Concerns: Positive Hyperlipidemia Screen Concerns: Hyperlipidemia Risk Factors and BMI >95% Primary Care Review of Systems Objective Vital Signs 07/06/19 1324 BP: 129/81 Pulse: 83 Weight: 98 kg Height: 166 cm Body mass index is 35.56 kg/m . Physical Exam Nursing note reviewed. Constitutional: She appears well. She is active. No distress. HENT: Head: Atraumatic. Right Ear: Tympanic membrane and external ear normal. Tympanic membrane is not erythematous. Left Ear: Tympanic membrane and external ear normal. Tympanic membrane is not erythematous. Nose: Nose normal. Mouth/Throat: Mucous membranes are moist. Dentition is normal. Oropharynx is clear. Eyes: Conjunctivae and EOM are normal. No strabismus. Pupils are equal, round, and reactive to light. Neck: Normal range of motion. Neck supple. Thyroid normal. No neck adenopathy. Cardiovascular: Normal rate, regular rhythm, S1 normal and S2 normal. Pulses are palpable. Heart murmur not heard. Pulmonary/Chest: Breath sounds normal. No respiratory distress. Exhibits no deformity. Abdominal: Soft. Bowel sounds are normal. She exhibits no distension and no mass. There is no hepatosplenomegaly. There is no tenderness. Musculoskeletal: Normal range of motion. Back: She exhibits no scoliosis. Neurological: She is alert. She has normal strength. She exhibits normal muscle tone. Gait normal. Skin: Capillary refill takes less than 3 seconds. No rash noted. There is no pallor. Skin is warm. Vitals reviewed: Blood pressure 129/81, pulse 83, height 166 cm, weight 98 kg, last menstrual period 06/29/2019. Normal [facility] Basic Metabolic Panelon 11-27 Comment, BMP ----- Normal [facility] Comment on above: Order Comment: With differential. Is this specimen being sent to an external lab?->No Result Comment: No v isible hemolysis. Performed By: #### B MP #### [address] [address] Calcium [Mass/Vol] 9.4 mg/dL Normal 7.6-11.0 [facility] Comment on above: Order Comment: With differential. Is this specimen being sent to an external lab?->No Performed By: #### B MP #### [address] [id number] Chloride [Moles/Vol] 102 mmol/L Normal 96-108 [facility] Comment on above: Order Comment: With differential. Is this specimen being sent to an external lab?->No Performed By: #### B MP #### [address] [address] CO2 [Moles/Vol] 25.5 mmol/L Normal 22.0-29.0 [facility] Comment on above: Order Comment: With differential. Is this specimen being sent to an external lab?->No Performed By: #### B MP #### [place] [address] Creatinine [Mass/Vol] 0.68 mg/dL Normal 0.50-1.00 [facility] Comment on above: Order Comment: With differential. Is this specimen being sent to an external lab?->No Result Comment: Premature 0.3-1.0 mg/dL Performed By: #### B MP #### [address] [address] Glucose [Mass/Vol] 70 mg/dL Normal 70-99 [facility] Comment on above: Order Comment: With differential. Is this specimen being sent to an external lab?->No Result Comment: Criteria for Diagnosis of Diabetes(Effective 03/04/11): Fasting specimen (no caloric intake for at least 8 hours). <100 mg/dl Normal 100-125 mg/dl Increased Risk for Diabetes >125 mg/dl Diagnostic for Diabetes Random Glucose (any time of day without regard to last meal). >=200 mg/dl plus Classic Symptoms of Diabetes Performed By: #### B MP #### [address] [address] Potassium [Moles/Vol] 5.7 mmol/L High 3.3-5.1 [facility] Comment on above: Order Comment: With differential. Is this specimen being sent to an external lab?->No Performed By: #### B MP #### [address] [address] Sodium [Moles/Vol] 136 mmol/L Normal 133-145 [facility] Comment on above: Order Comment: With differential. Is this specimen being sent to an external lab?->No Performed By: #### B MP #### [address] [address] Urea nitrogen [Mass/Vol] 15 mg/dL Normal 4- [facility] Comment on above: Order Comment: With differential. Is this specimen being sent to an external lab?->No Performed By: #### B MP #### [address] [address] Complete Blood Counton 12-15 Differential Complete Manual Normal [facility] Comment on above: Order Comment: With differential. Is this specimen being sent to an external lab?->No Performed By: #### C BC #### [address] [address] Erythrocyte distribution width (RBC) [Ratio] 12.2 % Normal 0.0-14.4 [facility] Comment on above: Order Comment: With differential. Is this specimen being sent to an external lab?->No Performed By: #### C BC #### [address] [address] Hematocrit (Bld) [Volume fraction] 41.0 % Normal 37.0-46.0 [facility] Comment on above: Order Comment: With differential. Is this specimen being sent to an external lab?->No Performed By: #### C BC #### [address] [address] Hemoglobin (Bld) [Mass/Vol] 13.5 g/dL Normal 12.0-15.0 [facility] Comment on above: Order Comment: With differential. Is this specimen being sent to an external lab?->No Performed By: #### C BC #### [address] [id number] Immature granulocytes/100 WBC (Bld) 0.20 % Normal [facility] Comment on above: Order Comment: With differential. Is this specimen being sent to an external lab?->No Result Comment: Kat ture Granulocyte Percent includes promyelocytes, myelocytes, and metamyelocytes. IG% > 1.0 indicates a left shift is present. With automated differentials, bands are included in the neutrophil count and not in the Immature Granulocyte Percent. Performed By: #### C BC #### [address] [address] MCH (RBC) [Entitic mass] 28.1 pg Normal 25.0-35.0 [facility] Comment on above: Order Comment: With differential. Is this specimen being sent to an external lab?->No Performed By: #### C BC #### [address] [address] MCHC (RBC) [Mass/Vol] 32.9 % Normal 31.0-37.0 [facility] Comment on above: Order Comment: With differential. Is this specimen being sent to an external lab?->No Performed By: #### C BC #### [address] [address] MCV (RBC) [Entitic vol] 85.4 fL Normal 78.0-96.0 [facility] Comment on above: Order Comment: With differential. Is this specimen being sent to an external lab?->No Performed By: #### C BC #### [address] [address] Nucleated RBC/100 WBC (Bld) [Ratio] 0.0 % Normal -1.0-0.0 [facility] Comment on above: Order Comment: With differential. Is this specimen being sent to an external lab?->No Performed By: #### C BC #### [address] [id number] Platelet mean volume (Bld) [Entitic vol] 9.7 fL Normal [facility] Comment on above: Order Comment: With differential. Is this specimen being sent to an external lab?->No Result Comment: MPV is platelet range and age dependent Performed By: #### C BC #### [address] [address] Platelets (Bld) [#/Vol] 282 10*3/uL Normal 150-450 [facility] Comment on above: Order Comment: With differential. Is this specimen being sent to an external lab?->No Performed By: #### C BC #### [address] [address] RBC (Bld) [#/Vol] 4.80 10E12/L Normal 4.10-4.80 [facility] Comment on above: Order Comment: With differential. Is this specimen being sent to an external lab?->No Performed By: #### C BC #### [address] [address] WBC (Bld) [#/Vol] 9.9 10*3/uL Normal 4.5-13.0 [facility] Comment on above: Order Comment: With differential. Is this specimen being sent to an external lab?->No Performed By: #### C BC #### [address] [address] Hemoglobin A1con 12-15-2018 HbA1c (Bld) [Mass fraction] 5.5 % Normal 0.0-6.4 [facility] Comment on above: Order Comment: With differential.Is this specimen being sent to an external lab?->No Performed By: #### C T/NG #### [address] [address] Manual Differentialon 2018 Absolute Neutrophil No. 4.[address] [facility] Comment on above: Order Comment: With differential. Is this specimen being sent to an external lab?->No Performed By: #### M DIFF #### [place] [address] [place] [address] Atypical Lymphocytes 9 % High 0-8 [facility] Comment on above: Order Comment: With differential. Is this specimen being sent to an external lab?->No Performed By: #### M DIFF #### [address] [address] Band form neutrophils/100 WBC (Bld) 1 % Low 5-11 [facility] Comment on above: Order Comment: With differential. Is this specimen being sent to an external lab?->No Performed By: #### M DIFF #### [address] [address] Basophils 1 % Normal 0-1 [facility] Comment on above: Order Comment: With differential. Is this specimen being sent to an external lab?->No Performed By: #### M DIFF #### [address] [address] Eosinophils 1 % Normal 0-3 [facility] Comment on above: Order Comment: With differential. Is this specimen being sent to an external lab?->No Performed By: #### M DIFF #### [address] [address] Lymphocytes 36 % Normal 25-45 [facility] Comment on above: Order Comment: With differential. Is this specimen being sent to an external lab?->No Performed By: #### M DIFF #### [address] [address] Metamyelocytes 0 % Normal 0-0 [facility] Comment on above: Order Comment: With differential. Is this specimen being sent to an external lab?->No Performed By: #### M DIFF #### [address] [address] Monocytes 7 % High 3-6 [facility] Comment on above: Order Comment: With differential. Is this specimen being sent to an external lab?->No Performed By: #### M DIFF #### [address] [address] Myelocytes 0 % Normal 0-0 [facility] Comment on above: Order Comment: With differential. Is this specimen being sent to an external lab?->No Performed By: #### M DIFF #### [address] [address] Promyelocytes 0 % Normal 0-0 [facility] Comment on above: Order Comment: With differential. Is this specimen being sent to an external lab?->No Performed By: #### M DIFF #### [address] [address] Segmented neutrophils/100 WBC (Bld) 45 % Normal 34-64 [facility] Comment on above: Order Comment: With differential. Is this specimen being sent to an external lab?->No Performed By: #### M DIFF #### [address] [address] T4,Freeon 12-15-2018 Free T4 [Mass/Vol] 1.2 ng/dL Normal 0.8-1.4 [facility] Comment on above: Order Comment: With differential. Is this specimen being sent to an external lab?->No Result Comment: New Reference Ranges - effective 07/19/09. Performed By: #### T 4FR #### [address] [address] TSHon 12-15-2018 TSH Qn 1.471 uIU/mL Normal 0.350-5.500 [facility] Comment on above: Order Comment: With differential. Is this specimen being sent to an external lab?->No Performed By: #### T SH #### [address] [address] Vitamin D 25 OHon 12-15-2018 25 OH Vitamin D 16 ng/mL Low 30-100 [facility] Comment on above: Order Comment: With differential. Is this specimen being sent to an external lab?->No Result Comment: Refe rence ranges provided by [facility] are based on Endocrine Society Guidelines: Level Characterization <21 ng/mL Vitamin D deficiency 21-29 ng/mL Suboptimal Vitamin D status 30-100 ng/mL Optimal Vitamin D status >100 ng/mL Potentially toxic Vitamin D effects NOTE: New Reference Ranges effective 18 Performed By: #### V 25DH #### [address] [address] Hemoglobin A1con 12-14-2018 HbA1c (Bld) [Mass fraction] ----- Normal [facility] Comment on above: Order Comment: With differential.Is this specimen being sent to an external lab?->No Result Comment: In D iagnosed Diabetes: > 8 Action suggested 7-8 Good Control 6-7 Near Normal Glycemia < 6 Non-diabetic level Diabetes Screenin.7-6.4% Prediabetic >6.5% Diabetic - should be confirmed with repeat HgA1c or fasting blood sugar. Performed By: #### C T/NG #### [address] [address] Progress Noteon 12-14-2018 Instrument Lens Generator Authentication Interface Message Text Patient ID: Donna Mcmahon is a 18 y.o. female. Her chief complaint(s) include: Other (diabetic concerns) Assessment 1. Fatigue, unspecified type 2. Overweight 3. Acanthosis nigricans, acquired Plan Donna was seen today for other. Diagnoses and all orders for this visit: Fatigue, unspecified type - T4, free (Clinic Collect) - TSH (Clinic Collect) - Vitamin D 25 hydroxy (Clinic Collect) - Hemoglobin A1c (Clinic Collect) - Complete Blood Count with Diff (Clinic Collect) - Venipuncture - Basic Metabolic Panel (Clinic Collect) - POCT Blood Glucose Overweight - T4, free (Clinic Collect) - TSH (Clinic Collect) - Hemoglobin A1c (Clinic Collect) - Basic Metabolic Panel (Clinic Collect) - POCT Blood Glucose Acanthosis nigricans, acquired - Hemoglobin A1c (Clinic Collect) - Complete Blood Count with Diff (Clinic Collect) - Basic Metabolic Panel (Clinic Collect) - POCT Blood Glucose Discussed diet. Patient needs to get more exercise/healthy diet. Return for Well Visit and as needed. Subjective She is accompanied by her mother. Other This problem is new. The duration has been 2 years. The onset has been gradual. The course is worsening. The patient's symptoms have included fatigue, fussiness, cough, headaches and abdominal pain (off/on). The patient's symptoms have included no fever, no decreased appetite (patient not skipping meals), no decreased fluid intake, no difficulty sleeping, no congestion, no rhinorrhea, no sore throat, no bilateral ear pain, no diarrhea and no vomiting. (Will feel hot at times/hot flash, no polyuria, no polydipsia). The symptoms are described as moderate. Exacerbated by: works at [employer] and will eat regular. Additional Parental Concerns: Menses have been more regular since starting control. Primary Care Review of Systems Objective Vital Signs 12/14/18 1439 Temp: 36.6 C (97.8 F) TempSrc: Temporal Weight: 92.6 kg There is no height or weight on file to calculate BMI. Physical Exam Constitutional: She appears well. She is active. No distress. overweight HENT: Head: Atraumatic. Right Ear: Tympanic membrane and external ear normal. Left Ear: Tympanic membrane and external ear normal. Nose: Nose normal. Mouth/Throat: Mucous membranes are moist. Dentition is normal. Eyes: Conjunctivae and EOM are normal. Pupils are equal, round, and reactive to light. Neck: Neck supple. No neck adenopathy. Cardiovascular: Normal rate, regular rhythm, S1 normal and S2 normal. Pulses are palpable. Pulmonary/Chest: Effort normal and breath sounds normal. Abdominal: Soft. Bowel sounds are normal. She exhibits no distension and no mass. There is no tenderness. Musculoskeletal: She exhibits no deformity. Neurological: She is alert. She has normal strength. She exhibits normal muscle tone. Skin: No rash noted. No cyanosis. No pallor. Thickened, dark skin on neck Skin is warm. Vitals reviewed: Temperature 36.6 C (97.8 F), temperature source Temporal, weight 92.6 kg. Last Result POCT Blood Glucose Collection Time: 12/14/18 3:15 PM Result Value Ref Range POCT Glucose, Blood 84 60 - 110 mg/dL Normal [facility] CT/NG PCR Panel on GeneXpert on 10-28-2018 CT/NG PCR Panel on GeneXpert Is this specimen being sent to an external lab?->No CT/NG PCR Panel on GeneXpert: NEGATIVE-Chlamydia trachomatis DNA: NOT DETECTED. Source: URINE Collected: 10/28/18 15:09 Site: Urine Received : 10/28/18 21:09 CT/NG PCR Panel on GeneXpert FINAL 10/29/18 10:13 NEGATIVE-Chlamydia trachomatis DNA: NOT DETECTED. NEGATIVE-Neisseria gonorrhea DNA: NOT DETECTED. - Method: DNA detection by RT PCR on a GeneXpert analyzer. - NOTE: This Amplified DNA Assay should not be used for the evaluation of suspected sexual abuse or for other medico-legal indications. - Screening urine specimens for Chlamydia trachomatis and Neisseria gonorrhoeae using nucleic acid amplification is an accurate and sensitive method compared to standard techniques of detection of these pathogens. Because the pathogen is diluted in urine, it is somewhat less sensitive than a direct swab specimen evaluated by nucleic acid amplification techniques. - Interpret results with caution! Volume of urine submitted for testing was greater than 50mL, which may result in reduced assay sensitivity. Normal [facility] Comment on above: Performed By: #### C T/NG #### [facility] [address] [address] Progress Noteon 10-28-2018 Instrument Lens Generator Authentication Interface Message Text Patient ID: Donna Mcmahon is a 18 y.o. female. Her chief complaint(s) include: Nausea (fatigue diarrrhea and ALONZO) Assessment 1. Nausea Plan Donna was seen today for nausea. Diagnoses and all orders for this visit: Nausea - POCT urine HCG - Urine culture - C.trachomatis/GC PCR Panel - omeprazole (PRILOSEC) 20 MG capsule; Take 1 Cap (20 mg) by mouth daily Question whether patient having nausea and abdominal discomfort due to IRMA. Patient very vague about her complaints and aggravating/alleviati ng factors. Will monitor closely for now and see whether the prilosec helps. To call if not improving over next 2 to 4 weeks/sooner if worsening. Will also make sure no UTI or GC/Chlamydia causing the abdominal discomfort. Return for Well Visit and as needed. Subjective She is accompanied by her mother. Nausea This problem is new. The duration has been 2 months. The onset has been gradual. The course is unchanging. The patient's symptoms have included fatigue, fussiness, congestion (recently), cough (off/on), headaches (occipital/frontal area), diarrhea and vomiting (on occasion). The patient's symptoms have included no fever, no decreased appetite, no decreased fluid intake, no difficulty sleeping, no sore throat and no bilateral ear pain. The location of symptoms have included the abdomen. The symptoms are described as mild. There have been no previous interventions. Additional Parental Concerns: Patient denies any vaginal discharge. Denies vaginal intercourse. Denies any specific food making her worse. Sometimes eating aggravates the pain/other times it makes it worse. Sour cream and onion chips makes her better. Patient denies constipation/last BM this morning. Review of Systems Gastrointestinal: Positive for nausea. Objective Vital Signs 10/28/18 1423 Temp: 36.7 C (98 F) TempSrc: Temporal Weight: 93.5 kg There is no height or weight on file to calculate BMI. Physical Exam Constitutional: She appears well. She is active. No distress. HENT: Head: Atraumatic. Right Ear: Tympanic membrane normal. Left Ear: Tympanic membrane normal. Mouth/Throat: Mucous membranes are moist. Eyes: Conjunctivae are normal. Cardiovascular: Normal rate and regular rhythm. Heart murmur not heard. Pulmonary/Chest: Breath sounds normal. There is normal air entry. Abdominal: Soft. Bowel sounds are normal. There is no hepatosplenomegaly. There is tenderness (mild generalized abdominal discomfort with palpation). There is no rebound and no guarding. Neurological: She is alert. Vitals reviewed: Temperature 36.7 C (98 F), temperature source Temporal, weight 93.5 kg, last menstrual period 10/12/2018. Last Result POCT urine HCG Collection Time: 10/28/18 3:12 PM Result Value Ref Range hCG Urine POCT Negative Negative Normal [facility] Urine Cultureon 10-28-2018 Bacteria identified Cx Nom (U) Is this specimen being sent to an external lab?->No Urine Culture: 10,000 - 50,000 CFU/ml of Normal Skin/urogenital nicky Source: URNMD Collected: 10/28/18 15:08 Site: Urine Received : 10/28/18 21:38 Urine Culture FINAL 10/30/18 08:56 10,000 - 50,000 CFU/ml of Normal Skin/urogenital nicky present Normal [facility] Comment on above: Performed By: #### U ALE #### [place] [id number] Gram stain for investigation of transfusion reaction Microscopic observation Gram stain Nom (Unsp spec) [facility] Work Phone: Thin prep Papanicolaou smear with manual screening Genital Culture 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 [facility] Work Phone: Genital Culture GPC Poss Enterococcu s sp [facility] Work Phone: Genital Culture Escherichia coli [facility] Work Phone: Thin prep Papanicolaou smear with manual screening Normal genital nicky isolated [facility] Work Phone: Vital Signs Date Time Vital Sign Value Performing Clinician Char block 03-24-2025 08:39-0400 Body height 165.1 cm Ying Podlogar MISSILE AND MISSILE CHECKOUT TECHNICIAN-C Work Phone: [facility] 03-24-2025 08:39-0400 Body mass index (BMI) [Ratio] 40.9 kg/m2 Ying Podlogar MISSILE AND MISSILE CHECKOUT TECHNICIAN-C Work Phone: [facility] 03-24-2025 08:39-0400 Body weight 111.58 kg Ying Podlogar MISSILE AND MISSILE CHECKOUT TECHNICIAN-C Work Phone: [facility] 03-24-2025 08:39-0400 Diastolic blood pressure 89 mm[Hg] Ying Podlogar MISSILE AND MISSILE CHECKOUT TECHNICIAN-C Work Phone: [facility] 03-24-2025 08:39-0400 Systolic blood pressure 137 mm[Hg] Yign Podlogar MISSILE AND MISSILE CHECKOUT TECHNICIAN-C Work Phone: [facility] 03-02-2025 09:07-0400 Body mass index (BMI) [Ratio] 41.34 kg/m2 Ying Podlogar DOCK ATTENDANT.DIVEMASTER Work Phone: [facility] 03-02-2025 09:07-0400 Body temperature 98.1 [degF] Ying Podlogar DOCK ATTENDANT.DIVEMASTER Work Phone: [facility] 03-02-2025 09:07-0400 Body weight 112.67 kg Ying Podlogar DOCK ATTENDANT.DIVEMASTER Work Phone: [facility] 03-02-2025 09:07-0400 Diastolic blood pressure 98 mm[Hg] Ying Podlogar DOCK ATTENDANT.DIVEMASTER Work Phone: [facility] 03-02-2025 09:07-0400 Heart rate 97 /min Ying Podlogar DOCK ATTENDANT.DIVEMASTER Work Phone: [facility] 03-02-2025 09:07-0400 Respiratory rate 18 /min Ying Podlogar DOCK ATTENDANT.DIVEMASTER Work Phone: [facility] 03-02-2025 09:07-0400 SaO2% (BldA) [Mass fraction] 98 % Ying Podlogar DOCK ATTENDANT.DIVEMASTER Work Phone: [facility] 03-02-2025 09:07-0400 Systolic blood pressure 132 mm[Hg] Ying Podlogar DOCK ATTENDANT.DIVEMASTER Work Phone: [facility] 02-13-2025 10:13-0400 Body mass index (BMI) [Ratio] 40.72 kg/m2 Michelle Cash-Praful DOCK ATTENDANT.DIVEMASTER Work Phone: [facility] 02-13-2025 10:13-0400 Body temperature 98.1 [degF] Michelle Cash-Praful DOCK ATTENDANT.DIVEMASTER Work Phone: [facility] 02-13-2025 10:13-0400 Body weight 111 kg Michelle Mcwilliams DOCK ATTENDANT.DIVEMASTER Work Phone: [facility] 02-13-2025 10:13-0400 Diastolic blood pressure 90 mm[Hg] Michelle Praisler-Wood DOCK ATTENDANT.DIVEMASTER Work Phone: [facility] 02-13-2025 10:13-0400 Heart rate 102 /min Michelle Praisler-Wood DOCK ATTENDANT.DIVEMASTER Work Phone: [facility] 02-13-2025 10:13-0400 Respiratory rate 18 /min Michelle Praisler-Wood DOCK ATTENDANT.DIVEMASTER Work Phone: [facility] 02-13-2025 10:13-0400 SaO2% (BldA) [Mass fraction] 98 % Michelle Praisler-Wood DOCK ATTENDANT.DIVEMASTER Work Phone: [facility] 02-13-2025 10:13-0400 Systolic blood pressure 130 mm[Hg] Michelle Praisler-Wood DOCK ATTENDANT.DIVEMASTER Work Phone: [facility] 12-27-2024 15:34-0400 Body mass index (BMI) [Ratio] 40.47 kg/m2 Traci Lucero DOCK ATTENDANT.DIVEMASTER Work Phone: [facility] 12-27-2024 15:34-0400 Body temperature 97.7 [degF] Traci Lucero DOCK ATTENDANT.DIVEMASTER Work Phone: [facility] 12-27-2024 15:34-0400 Body weight 110.3 kg Traci Lucero DOCK ATTENDANT.DIVEMASTER Work Phone: [facility] 12-27-2024 15:34-0400 Diastolic blood pressure 72 mm[Hg] Traci Lucero DOCK ATTENDANT.DIVEMASTER Work Phone: [facility] 12-27-2024 15:34-0400 Heart rate 100 /min Traci Lucero DOCK ATTENDANT.DIVEMASTER Work Phone: [facility] 12-27-2024 15:34-0400 Respiratory rate 16 /min Traci Lucero DOCK ATTENDANT.DIVEMASTER Work Phone: [facility] 12-27-2024 15:34-0400 SaO2% (BldA) [Mass fraction] 96 % Traci Lucero DOCK ATTENDANT.DIVEMASTER Work Phone: [facility] 12-27-2024 15:34-0400 Systolic blood pressure 102 mm[Hg] Traci Barker APRN.DIVEMASTER Work Phone: [facility] 12-08-2024 08:43-0400 Body mass index (BMI) [Ratio] 41.02 kg/m2 Darrel Greenfield APRN.DIVEMASTER Work Phone: [facility] 12-08-2024 08:43-0400 Body temperature 97.81 [degF] Darrel Greenfield APRN.DIVEMASTER Work Phone: [facility] 12-08-2024 08:43-0400 Body weight 111.8 kg Darrel Greenfield APRN.DIVEMASTER Work Phone: [facility] 12-08-2024 08:43-0400 Diastolic blood pressure 80 mm[Hg] Darrel Greenfield APRN.DIVEMASTER Work Phone: [facility] 12-08-2024 08:43-0400 Heart rate 100 /min Darrel Greenfield APRN.DIVEMASTER Work Phone: [facility] 12-08-2024 08:43-0400 Respiratory rate 18 /min Darrel Greenfield APRN.DIVEMASTER Work Phone: [facility] 12-08-2024 08:43-0400 SaO2% (BldA) [Mass fraction] 97 % Darrel Greenfield APRN.DIVEMASTER Work Phone: [facility] 12-08-2024 08:43-0400 Systolic blood pressure 128 mm[Hg] Darrel Greenfield APRN.DIVEMASTER Work Phone: [facility] 11-06-2024 12:56-0500 Body temperature 99.68 [degF] MORGAN DANBURY DOCK ATTENDANT-DIVEMASTER [facility] 11-06-2024 12:56-0500 Diastolic Blood Pressure Non-Invasive 78 mm[Hg] MORGAN DANBURY DOCK ATTENDANT-DIVEMASTER [facility] 11-06-2024 12:56-0500 Heart rate 113 /min MORGAN DANBURY DOCK ATTENDANT-DIVEMASTER [facility] 11-06-2024 12:56-0500 Respiratory rate 18 /min DECEMBER DANBURY DOCK ATTENDANT-DIVEMASTER [facility] 11-06-2024 12:56-0500 Systolic Blood Pressure Non-Invasive 156 mm[Hg] DECEMBER DANBURY DOCK ATTENDANT-DIVEMASTER [facility] 11-06-2024 10:06-0500 Body temperature 100.4 [degF] DECEMBER DANBURY DOCK ATTENDANT-DIVEMASTER [facility] 11-06-2024 06:43-0500 Body temperature 101.48 [degF] DECEMBER DANBURY DOCK ATTENDANT-DIVEMASTER [facility] 11-06-2024 06:43-0500 Diastolic Blood Pressure Non-Invasive 76 mm[Hg] DECEMBER DANBURY DOCK ATTENDANT-DIVEMASTER [facility] 11-06-2024 06:43-0500 Heart rate 104 /min DECEMBER DANBURY DOCK ATTENDANT-DIVEMASTER [facility] 11-06-2024 06:43-0500 Respiratory rate 17 /min DECEMBER DANBURY DOCK ATTENDANT-DIVEMASTER [facility] 11-06-2024 06:43-0500 Systolic Blood Pressure Non-Invasive 134 mm[Hg] DECEMBER DANBURY DOCK ATTENDANT-DIVEMASTER [facility] 11-06-2024 03:00-0500 Diastolic Blood Pressure Non-Invasive 82 mm[Hg] DECEMBER DANBURY DOCK ATTENDANT-DIVEMASTER [facility] 11-06-2024 03:00-0500 Heart rate 98 /min DECEMBER DANBURY DOCK ATTENDANT-DIVEMASTER [facility] 11-06-2024 03:00-0500 Respiratory rate 16 /min DECEMBER DANBURY DOCK ATTENDANT-DIVEMASTER [facility] 11-06-2024 03:00-0500 Systolic Blood Pressure Non-Invasive 140 mm[Hg] DECEMBER DANBURY DOCK ATTENDANT-DIVEMASTER [facility] 11-05-2024 23:02-0500 Heart rate 102 /min DECEMBER DANBURY DOCK ATTENDANT-DIVEMASTER [facility] 11-05-2024 22:02-0500 Body height 165.5 cm MORGAN DANBURY DOCK ATTENDANT-DIVEMASTER [facility] 11-05-2024 22:02-0500 Body weight 109.7 kg DECEMBER DANBURY DOCK ATTENDANT-DIVEMASTER [facility] 11-05-2024 22:02-0500 Body weight 40.05 kg/m2 DECEMBER DANBURY DOCK ATTENDANT-DIVEMASTER [facility] 11-05-2024 21:46-0500 Heart rate 108 /min DECEMBER DANBURY DOCK ATTENDANT-DIVEMASTER [facility] 11-05-2024 21:19-0500 Heart rate 131 /min DECEMBER DANBURY DOCK ATTENDANT-DIVEMASTER [facility] 11-05-2024 16:16-0500 Body height 165.5 cm DECEMBER DANBURY DOCK ATTENDANT-DIVEMASTER [facility] 11-05-2024 16:16-0500 Body weight 109.1 kg DECEMBER DANBURY DOCK ATTENDANT-DIVEMASTER [facility] 11-02-2024 10:26-0500 Body mass index (BMI) [Ratio] 41.86 kg/m2 Paradise Chambers DOCK ATTENDANT.DIVEMASTER Work Phone: [facility] 11-02-2024 10:26-0500 Body temperature 98.4 [degF] Paradise Chambers DOCK ATTENDANT.DIVEMASTER Work Phone: [facility] 11-02-2024 10:26-0500 Body weight 114.1 kg Paradise Chambers DOCK ATTENDANT.DIVEMASTER Work Phone: [facility] 11-02-2024 10:26-0500 Diastolic blood pressure 70 mm[Hg] Paradise Chambers DOCK ATTENDANT.DIVEMASTER Work Phone: [facility] 11-02-2024 10:26-0500 Heart rate 78 /min Paradise Chambers DOCK ATTENDANT.DIVEMASTER Work Phone: [facility] 11-02-2024 10:26-0500 Respiratory rate 16 /min Paradise Chambers DOCK ATTENDANT.DIVEMASTER Work Phone: [facility] 11-02-2024 10:26-0500 SaO2% (BldA) [Mass fraction] 98 % Paradise Chambers DOCK ATTENDANT.DIVEMASTER Work Phone: [facility] 11-02-2024 10:26-0500 Systolic blood pressure 118 mm[Hg] Paradise Chambers DOCK ATTENDANT.DIVEMASTER Work Phone: [facility] 10-21-2024 09:19-0500 Body mass index (BMI) [Ratio] 40.83 kg/m2 Giorgi Groves DOCK ATTENDANT.DIVEMASTER Work Phone: [facility] 10-21-2024 09:19-0500 Body temperature 98.29 [degF] Giorgi Groves DOCK ATTENDANT.DIVEMASTER Work Phone: [facility] 10-21-2024 09:19-0500 Body weight 111.3 kg Giorgi Groves DOCK ATTENDANT.DIVEMASTER Work Phone: [facility] 10-21-2024 09:19-0500 Diastolic blood pressure 87 mm[Hg] Giorgi Groves DOCK ATTENDANT.DIVEMASTER Work Phone: [facility] 10-21-2024 09:19-0500 Heart rate 108 /min Giorgi Groves DOCK ATTENDANT.DIVEMASTER Work Phone: [facility] 10-21-2024 09:19-0500 Respiratory rate 18 /min Giorgi Sarahreebury DOCK ATTENDANT.DIVEMASTER Work Phone: [facility] 10-21-2024 09:19-0500 SaO2% (BldA) [Mass fraction] 96 % Giorgi Mickeybury DOCK ATTENDANT.DIVEMASTER Work Phone: [facility] 10-21-2024 09:19-0500 Systolic blood pressure 141 mm[Hg] Giorgi Sarahlebury DOCK ATTENDANT.DIVEMASTER Work Phone: [facility] 09-01-2024 14:50-0500 Body mass index (BMI) [Ratio] 40.8 kg/m2 Michelle Praisler-Wood DOCK ATTENDANT.DIVEMASTER Work Phone: [facility] 09-01-2024 14:50-0500 Body temperature 98.1 [degF] Michelle Praisler-Wood DOCK ATTENDANT.DIVEMASTER Work Phone: [facility] 09-01-2024 14:50-0500 Body weight 111.2 kg Michelle Praisler-Wood DOCK ATTENDANT.DIVEMASTER Work Phone: [facility] 09-01-2024 14:50-0500 Diastolic blood pressure 92 mm[Hg] Michelle Praisler-Wood DOCK ATTENDANT.DIVEMASTER Work Phone: [facility] 09-01-2024 14:50-0500 Heart rate 96 /min Michelle Praisler-Wood DOCK ATTENDANT.DIVEMASTER Work Phone: [facility] 09-01-2024 14:50-0500 Respiratory rate 18 /min Michelle Praisler-Wood DOCK ATTENDANT.DIVEMASTER Work Phone: [facility] 09-01-2024 14:50-0500 SaO2% (BldA) [Mass fraction] 96 % Michelle Praisler-Wood DOCK ATTENDANT.DIVEMASTER Work Phone: [facility] 09-01-2024 14:50-0500 Systolic blood pressure 144 mm[Hg] Michelle Praisler-Wood DOCK ATTENDANT.DIVEMASTER Work Phone: [facility] 2024 08:59-0400 Body mass index (BMI) [Ratio] 40.91 kg/m2 Mani Gardner MD Work Phone: [facility] 2024 08:59-0400 Body temperature 98.29 [degF] Mani Gardner MD Work Phone: [facility] 2024 08:59-0400 Body weight 111.5 kg Mani Gardner MD Work Phone: [facility] 2024 08:59-0400 Diastolic blood pressure 84 mm[Hg] Mani Gardner MD Work Phone: [facility] 2024 08:59-0400 Heart rate 72 /min Mani Gardner MD Work Phone: [facility] 2024 08:59-0400 Respiratory rate 18 /min Mani Gardner MD Work Phone: [facility] 2024 08:59-0400 Systolic blood pressure 132 mm[Hg] Mani Gardner MD Work Phone: [facility] 07-02-2024 16:41-0400 Body mass index (BMI) [Ratio] 39.62 kg/m2 Darrel Greenfield APRN.DIVEMASTER Work Phone: [facility] 07-02-2024 16:41-0400 Body temperature 98.71 [degF] Darrel Greenfield APRN.DIVEMASTER Work Phone: [facility] 07-02-2024 16:41-0400 Body weight 108 kg Darrel Greenfield APRN.DIVEMASTER Work Phone: [facility] 07-02-2024 16:41-0400 Diastolic blood pressure 87 mm[Hg] Darrel Greenfield APRN.DIVEMASTER Work Phone: [facility] 07-02-2024 16:41-0400 Heart rate 87 /min Darrel Greenfield APRN.DIVEMASTER Work Phone: [facility] 07-02-2024 16:41-0400 Respiratory rate 18 /min Darrel Gin DOCK ATTENDANT.DIVEMASTER Work Phone: [facility] 07-02-2024 16:41-0400 SaO2% (BldA) [Mass fraction] 98 % Darrel Greenfield DOCK ATTENDANT.DIVEMASTER Work Phone: [facility] 07-02-2024 16:41-0400 Systolic blood pressure 131 mm[Hg] Darrel Greenfield DOCK ATTENDANT.DIVEMASTER Work Phone: [facility] 06-23-2024 09:01-0400 Body mass index (BMI) [Ratio] 40.5 kg/m2 Michelle Praisler-Wood DOCK ATTENDANT.DIVEMASTER Work Phone: [facility] 06-23-2024 09:01-0400 Body temperature 98.71 [degF] Michelle Praisler-Wood DOCK ATTENDANT.DIVEMASTER Work Phone: [facility] 06-23-2024 09:01-0400 Body weight 110.4 kg Michelle Praisler-Praful DOCK ATTENDANT.DIVEMASTER Work Phone: [facility] 06-23-2024 09:01-0400 Diastolic blood pressure 90 mm[Hg] Michelle Praisler-Wood DOCK ATTENDANT.DIVEMASTER Work Phone: [facility] 06-23-2024 09:01-0400 Heart rate 104 /min Michelle Praisler-Wood DOCK ATTENDANT.DIVEMASTER Work Phone: [facility] 06-23-2024 09:01-0400 Respiratory rate 16 /min Michelle Praisler-Wood DOCK ATTENDANT.DIVEMASTER Work Phone: [facility] 06-23-2024 09:01-0400 SaO2% (BldA) [Mass fraction] 99 % Michelle Praisler-Wood DOCK ATTENDANT.DIVEMASTER Work Phone: [facility] 06-23-2024 09:01-0400 Systolic blood pressure 124 mm[Hg] Michelle Praisler-Wood DOCK ATTENDANT.DIVEMASTER Work Phone: [facility] 04-09-2024 09:53-0400 Body mass index (BMI) [Ratio] 38.47 kg/m2 Ying Piña DOCK ATTENDANT.DIVEMASTER Work Phone: [facility] 04-09-2024 09:53-0400 Body weight 104.87 kg Ying Podlogar DOCK ATTENDANT.DIVEMASTER Work Phone: [facility] 04-09-2024 09:53-0400 Diastolic blood pressure 88 mm[Hg] Ying Podlogar DOCK ATTENDANT.DIVEMASTER Work Phone: [facility] 04-09-2024 09:53-0400 Heart rate 97 /min Ying Podlogar DOCK ATTENDANT.DIVEMASTER Work Phone: [facility] 04-09-2024 09:53-0400 Respiratory rate 16 /min Ying Podlogar DOCK ATTENDANT.DIVEMASTER Work Phone: [facility] 04-09-2024 09:53-0400 SaO2% (BldA) [Mass fraction] 98 % Ying Podlogar DOCK ATTENDANT.DIVEMASTER Work Phone: [facility] 04-09-2024 09:53-0400 Systolic blood pressure 130 mm[Hg] Ying Podlogar DOCK ATTENDANT.DIVEMASTER Work Phone: [facility] 03-28-2024 12:40-0400 Body mass index (BMI) [Ratio] 38.08 kg/m2 Darrel Greenfield DOCK ATTENDANT.DIVEMASTER Work Phone: [facility] 03-28-2024 12:40-0400 Body temperature 98.6 [degF] Darrel Greenfield APRN.DIVEMASTER Work Phone: [facility] 03-28-2024 12:40-0400 Body weight 103.8 kg Darrel Greenfield APRN.DIVEMASTER Work Phone: [facility] 03-28-2024 12:40-0400 Diastolic blood pressure 80 mm[Hg] Darrel Greenfield APRN.DIVEMASTER Work Phone: [facility] 03-28-2024 12:40-0400 Heart rate 102 /min Darrel Greenfield APRN.DIVEMASTER Work Phone: [facility] 03-28-2024 12:40-0400 Respiratory rate 16 /min Darrel Greenfield APRN.DIVEMASTER Work Phone: [facility] 03-28-2024 12:40-0400 SaO2% (BldA) [Mass fraction] 97 % Darrel Greenfield APRN.DIVEMASTER Work Phone: [facility] 03-28-2024 12:40-0400 Systolic blood pressure 128 mm[Hg] Darrel Greenfield APRN.DIVEMASTER Work Phone: [facility] 02-13-2024 14:36-0400 Body mass index (BMI) [Ratio] 37.31 kg/m2 Darrel Greenfield APRN.DIVEMASTER Work Phone: [facility] 02-13-2024 14:36-0400 Body temperature 98.2 [degF] Darrel Greenfield APRN.DIVEMASTER Work Phone: [facility] 02-13-2024 14:36-0400 Body weight 101.7 kg Darrel Greenfield APRN.DIVEMASTER Work Phone: [facility] 02-13-2024 14:36-0400 Diastolic blood pressure 70 mm[Hg] Darrel Greenfield APRN.DIVEMASTER Work Phone: [facility] 02-13-2024 14:36-0400 Heart rate 101 /min Darrel Greenfield APRN.DIVEMASTER Work Phone: [facility] 02-13-2024 14:36-0400 Respiratory rate 18 /min Darrel Greenfield APRN.DIVEMASTER Work Phone: [facility] 02-13-2024 14:36-0400 SaO2% (BldA) [Mass fraction] 99 % Darrel Greenfield APRN.DIVEMASTER Work Phone: [facility] 02-13-2024 14:36-0400 Systolic blood pressure 136 mm[Hg] Darrel Greenfield APRN.DIVEMASTER Work Phone: [facility] 02-07-2024 12:42-0400 Body mass index (BMI) [Ratio] 37.05 kg/m2 Darrel Greenfield APRN.DIVEMASTER Work Phone: [facility] 02-07-2024 12:42-0400 Body temperature 97.81 [degF] Darrel Greenfield APRN.DIVEMASTER Work Phone: [facility] 02-07-2024 12:42-0400 Body weight 101 kg Darrel Greenfield APRN.DIVEMASTER Work Phone: [facility] 02-07-2024 12:42-0400 Diastolic blood pressure 88 mm[Hg] Darrel Greenfield DOCK ATTENDANT.DIVEMASTER Work Phone: [facility] 02-07-2024 12:42-0400 Heart rate 93 /min Darrel Greenfield DOCK ATTENDANT.DIVEMASTER Work Phone: [facility] 02-07-2024 12:42-0400 Respiratory rate 20 /min Darrel Greenfield DOCK ATTENDANT.DIVEMASTER Work Phone: [facility] 02-07-2024 12:42-0400 SaO2% (BldA) [Mass fraction] 98 % Darrel Greenfield DOCK ATTENDANT.DIVEMASTER Work Phone: [facility] 02-07-2024 12:42-0400 Systolic blood pressure 126 mm[Hg] Darrel Greenfield DOCK ATTENDANT.DIVEMASTER Work Phone: [facility] 12-10-2023 09:45-0400 Body weight 99.16 kg Ying Cheloglinnette DOCK ATTENDANT.DIVEMASTER Work Phone: [facility] 12-10-2023 09:45-0400 Diastolic blood pressure 90 mm[Hg] Ying Podlogar DOCK ATTENDANT.DIVEMASTER Work Phone: [facility] 12-10-2023 09:45-0400 Heart rate 80 /min Ying Podlogar DOCK ATTENDANT.DIVEMASTER Work Phone: [facility] 12-10-2023 09:45-0400 Respiratory rate 18 /min Ying Podlogar DOCK ATTENDANT.DIVEMASTER Work Phone: [facility] 12-10-2023 09:45-0400 SaO2% (BldA) [Mass fraction] 97 % Ying Podlogar DOCK ATTENDANT.DIVEMASTER Work Phone: [facility] 12-10-2023 09:45-0400 Systolic blood pressure 118 mm[Hg] Ying Piña APRN.DIVEMASTER Work Phone: [facility] 06-29-2023 14:37-0400 Body temperature 97.81 [degF] Darrel Greenfield APRN.DIVEMASTER Work Phone: [facility] 06-29-2023 14:37-0400 Body weight 91.44 kg Darrel Greenfield APRN.DIVEMASTER Work Phone: [facility] 06-29-2023 14:37-0400 Diastolic blood pressure 82 mm[Hg] Darrel Greenfield APRN.DIVEMASTER Work Phone: [facility] 06-29-2023 14:37-0400 Heart rate 78 /min Darrel Greenfield APRN.DIVEMASTER Work Phone: [facility] 06-29-2023 14:37-0400 Respiratory rate 18 /min Darrel Greenfield APRN.DIVEMASTER Work Phone: [facility] 06-29-2023 14:37-0400 SaO2% (BldA) [Mass fraction] 98 % Darrel Greenfield APRN.DIVEMASTER Work Phone: [facility] 06-29-2023 14:37-0400 Systolic blood pressure 118 mm[Hg] Darrel Greenfield APRN.DIVEMASTER Work Phone: [facility] 06-17-2023 03:39-0400 Diastolic Blood Pressure Non-Invasive 77 1 EMY PEREZ MD [facility] 06-17-2023 03:39-0400 Heart rate 72 /min EMY PEREZ MD [facility] 06-17-2023 03:39-0400 Respiratory rate 16 /min EMY PEREZ MD [facility] 06-17-2023 03:39-0400 Systolic Blood Pressure Non-Invasive 135 1 EMY PEREZ MD [facility] 06-17-2023 02:45-0400 Blood Pressure Cuff Size EMY PEREZ MD [facility] 06-17-2023 02:45-0400 Blood Pressure Location EMY PEREZ MD [facility] 06-17-2023 02:45-0400 Blood Pressure Method EMY PEREZ MD [facility] 06-17-2023 02:45-0400 Body height 165.1 cm EMY PEREZ MD [facility] 06-17-2023 02:45-0400 Body temperature 97.88 [degF] EMY PEREZ MD [facility] 06-17-2023 02:45-0400 Body weight 90.9 kg EMY PEREZ MD [facility] 06-17-2023 02:45-0400 Diastolic Blood Pressure Non-Invasive 95 1 EMY PEREZ MD [facility] 06-17-2023 02:45-0400 Heart rate 80 /min EMY PEREZ MD [facility] 06-17-2023 02:45-0400 Reason For Taking VItal Signs EMY PEREZ MD [facility] 06-17-2023 02:45-0400 Respiratory rate 16 /min EMY PEREZ MD [facility] 06-17-2023 02:45-0400 Systolic Blood Pressure Non-Invasive 147 1 EMY PEREZ MD [facility] 06-16-2023 11:06-0400 Body temperature 97.3 [degF] Hodaivan Prestoner DOCK ATTENDANT.DIVEMASTER Work Phone: [facility] 06-16-2023 11:06-0400 Body weight 91.26 kg Hodaivan Prestoner DOCK ATTENDANT.DIVEMASTER Work Phone: [facility] 06-16-2023 11:06-0400 Diastolic blood pressure 90 mm[Hg] Hoda Prestoner DOCK ATTENDANT.DIVEMASTER Work Phone: [facility] 06-16-2023 11:06-0400 Heart rate 85 /min Hoda Prestoner DOCK ATTENDANT.DIVEMASTER Work Phone: [facility] 06-16-2023 11:06-0400 Respiratory rate 20 /min Hoda Prestoner DOCK ATTENDANT.DIVEMASTER Work Phone: [facility] 06-16-2023 11:06-0400 SaO2% (BldA) [Mass fraction] 100 % Hoda Prestoner DOCK ATTENDANT.DIVEMASTER Work Phone: [facility] 06-16-2023 11:06-0400 Systolic blood pressure 122 mm[Hg] Hoda Prestoner DOCK ATTENDANT.DIVEMASTER Work Phone: [facility] 03-31-2023 07:20-0400 Body weight 94.8 kg Ying Podlogar DOCK ATTENDANT.DIVEMASTER Work Phone: [facility] 03-31-2023 07:20-0400 Diastolic blood pressure 84 mm[Hg] Ying Podlogar DOCK ATTENDANT.DIVEMASTER Work Phone: [facility] 03-31-2023 07:20-0400 Heart rate 71 /min Ying Podlogar DOCK ATTENDANT.DIVEMASTER Work Phone: [facility] 03-31-2023 07:20-0400 Respiratory rate 16 /min Ying Podlogar DOCK ATTENDANT.DIVEMASTER Work Phone: [facility] 03-31-2023 07:20-0400 SaO2% (BldA) [Mass fraction] 97 % Ying Podlogar DOCK ATTENDANT.DIVEMASTER Work Phone: [facility] 03-31-2023 07:20-0400 Systolic blood pressure 116 mm[Hg] Ying Podlogar DOCK ATTENDANT.DIVEMASTER Work Phone: [facility] 03-12-2023 10:30-0400 Body weight 98.07 kg Ying Podlogar DOCK ATTENDANT.DIVEMASTER Work Phone: [facility] 03-12-2023 10:30-0400 Diastolic blood pressure 72 mm[Hg] Ying Podlogar DOCK ATTENDANT.DIVEMASTER Work Phone: [facility] 03-12-2023 10:30-0400 Heart rate 87 /min Ying Podlogar DOCK ATTENDANT.DIVEMASTER Work Phone: [facility] 03-12-2023 10:30-0400 SaO2% (BldA) [Mass fraction] 97 % Ying Podlogar DOCK ATTENDANT.DIVEMASTER Work Phone: [facility] 03-12-2023 10:30-0400 Systolic blood pressure 134 mm[Hg] Ying Podlogar DOCK ATTENDANT.DIVEMASTER Work Phone: [facility] 03-05-2023 08:48-0400 Body temperature 97.81 [degF] Krislyn Aberegg PA Work Phone: [facility] 03-05-2023 08:48-0400 Body weight 99.97 kg Krislyn Aberegg PA Work Phone: [facility] 03-05-2023 08:48-0400 Diastolic blood pressure 92 mm[Hg] Krislyn Aberegg PA Work Phone: [facility] 03-05-2023 08:48-0400 Heart rate 76 /min Krislyn Aberegg PA Work Phone: [facility] 03-05-2023 08:48-0400 Respiratory rate 20 /min Krislyn Aberegg PA Work Phone: [facility] 03-05-2023 08:48-0400 SaO2% (BldA) [Mass fraction] 99 % Janene Baeeregg PA Work Phone: [facility] 03-05-2023 08:48-0400 Systolic blood pressure 118 mm[Hg] Krislyn Aberegg PA Work Phone: [facility] 03-03-2023 09:59-0400 Body weight 98.97 kg Ying Podlogar DOCK ATTENDANT.DIVEMASTER Work Phone: [facility] 03-03-2023 09:59-0400 Diastolic blood pressure 82 mm[Hg] Ying Podlogar DOCK ATTENDANT.DIVEMASTER Work Phone: [facility] 03-03-2023 09:59-0400 Heart rate 77 /min Ying Podlogar DOCK ATTENDANT.DIVEMASTER Work Phone: [facility] 03-03-2023 09:59-0400 Respiratory rate 16 /min Ying Podlogar DOCK ATTENDANT.DIVEMASTER Work Phone: [facility] 03-03-2023 09:59-0400 SaO2% (BldA) [Mass fraction] 98 % Ying Podlogar DOCK ATTENDANT.DIVEMASTER Work Phone: [facility] 03-03-2023 09:59-0400 Systolic blood pressure 112 mm[Hg] Ying Podlogar DOCK ATTENDANT.DIVEMASTER Work Phone: [facility] 02-03-2023 13:31-0400 Body weight 101.61 kg Ying Podlogar DOCK ATTENDANT.DIVEMASTER Work Phone: [facility] 02-03-2023 13:31-0400 Diastolic blood pressure 82 mm[Hg] Ying Podlogar DOCK ATTENDANT.DIVEMASTER Work Phone: [facility] 02-03-2023 13:31-0400 Heart rate 87 /min Ying Podlogar DOCK ATTENDANT.DIVEMASTER Work Phone: [facility] 02-03-2023 13:31-0400 Respiratory rate 16 /min Ying Podlogar DOCK ATTENDANT.DIVEMASTER Work Phone: [facility] 02-03-2023 13:31-0400 SaO2% (BldA) [Mass fraction] 97 % Ying Podloglinnette DOCK ATTENDANT.DIVEMASTER Work Phone: [facility] 02-03-2023 13:31-0400 Systolic blood pressure 124 mm[Hg] Ying Piña DOCK ATTENDANT.DIVEMASTER Work Phone: [facility] 01-15-2023 13:42-0400 Body height 165.1 cm MISSILE AND MISSILE CHECKOUT TECHNICIAN-C Ying Podlogar MISSILE AND MISSILE CHECKOUT TECHNICIAN Work Phone: [facility] 01-15-2023 13:42-0400 Body mass index (BMI) [Ratio] 38.7 kg/m2 MISSILE AND MISSILE CHECKOUT TECHNICIAN-C Ying Podlogar MISSILE AND MISSILE CHECKOUT TECHNICIAN Work Phone: [facility] 01-15-2023 13:42-0400 Body weight 105.74 kg MISSILE AND MISSILE CHECKOUT TECHNICIAN-C Ying Podlogar MISSILE AND MISSILE CHECKOUT TECHNICIAN Work Phone: [facility] 01-15-2023 13:42-0400 Diastolic blood pressure 87 mm[Hg] MISSILE AND MISSILE CHECKOUT TECHNICIAN-C Ying Chelogar MISSILE AND MISSILE CHECKOUT TECHNICIAN Work Phone: [facility] 01-15-2023 13:42-0400 Systolic blood pressure 134 mm[Hg] MISSILE AND MISSILE CHECKOUT TECHNICIAN-C Ying Podlogar MISSILE AND MISSILE CHECKOUT TECHNICIAN Work Phone: [facility] 11-15-2022 13:12-0500 Body temperature 97.81 [degF] Mani Gardner MD Work Phone: [facility] 11-15-2022 13:12-0500 Body weight 107.34 kg Mani Gardner MD Work Phone: [facility] 11-15-2022 13:12-0500 Diastolic blood pressure 78 mm[Hg] Mani Gardner MD Work Phone: [facility] 11-15-2022 13:12-0500 Heart rate 95 /min Mani Gardner MD Work Phone: [facility] 11-15-2022 13:12-0500 Respiratory rate 18 /min Mani Gardner MD Work Phone: [facility] 11-15-2022 13:12-0500 SaO2% (BldA) [Mass fraction] 99 % Mani Gardner MD Work Phone: [facility] 11-15-2022 13:12-0500 Systolic blood pressure 126 mm[Hg] Mani Gardner MD Work Phone: [facility] 10-02-2022 09:52-0500 Body mass index (BMI) [Ratio] 39 kg/m2 MISSILE AND MISSILE CHECKOUT TECHNICIAN-C Ying Podlogar MISSILE AND MISSILE CHECKOUT TECHNICIAN Work Phone: [facility] 10-02-2022 09:52-0500 Body weight 106.36 kg MISSILE AND MISSILE CHECKOUT TECHNICIAN-C Ying Podlogar MISSILE AND MISSILE CHECKOUT TECHNICIAN Work Phone: [facility] 10-02-2022 09:52-0500 Diastolic blood pressure 84 mm[Hg] MISSILE AND MISSILE CHECKOUT TECHNICIAN-C Ying Podlogar MISSILE AND MISSILE CHECKOUT TECHNICIAN Work Phone: [facility] 10-02-2022 09:52-0500 Systolic blood pressure 132 mm[Hg] MISSILE AND MISSILE CHECKOUT TECHNICIAN-C Ying Podlogar MISSILE AND MISSILE CHECKOUT TECHNICIAN Work Phone: [facility] 09-23-2022 14:31-0500 Body temperature 98.01 [degF] Mani Gardner MD Work Phone: [facility] 09-23-2022 14:31-0500 Body weight 105.51 kg Mani Gardner MD Work Phone: [facility] 09-23-2022 14:31-0500 Diastolic blood pressure 78 mm[Hg] Mani Gardner MD Work Phone: [facility] 09-23-2022 14:31-0500 Heart rate 91 /min Mani Gardner MD Work Phone: [facility] 09-23-2022 14:31-0500 Respiratory rate 16 /min Mani Gardner MD Work Phone: [facility] 09-23-2022 14:31-0500 SaO2% (BldA) [Mass fraction] 94 % Mani Gardner MD Work Phone: [facility] 09-23-2022 14:31-0500 Systolic blood pressure 128 mm[Hg] Mani Gardner MD Work Phone: [facility] 09-19-2022 13:04-0500 Body temperature 98.49 [degF] Michelle Praisler-Wood DOCK ATTENDANT.DIVEMASTER Work Phone: [facility] 09-19-2022 13:04-0500 Body weight 104.24 kg Michelle Praisler-Wood DOCK ATTENDANT.DIVEMASTER Work Phone: [facility] 09-19-2022 13:04-0500 Diastolic blood pressure 74 mm[Hg] Michelle Praisler-Wood DOCK ATTENDANT.DIVEMASTER Work Phone: [facility] 09-19-2022 13:04-0500 Heart rate 106 /min Michelle Praisler-Wood DOCK ATTENDANT.DIVEMASTER Work Phone: [facility] 09-19-2022 13:04-0500 Respiratory rate 18 /min Michelle Praisler-Wood DOCK ATTENDANT.DIVEMASTER Work Phone: [facility] 09-19-2022 13:04-0500 SaO2% (BldA) [Mass fraction] 100 % Michelle Praisler-Wood DOCK ATTENDANT.DIVEMASTER Work Phone: [facility] 09-19-2022 13:04-0500 Systolic blood pressure 128 mm[Hg] Michelle Praisler-Wood DOCK ATTENDANT.DIVEMASTER Work Phone: [facility] 09-12-2022 16:20-0500 Diastolic Blood Pressure Non-Invasive 90 1 EMY PEREZ MD [facility] 09-12-2022 16:20-0500 Heart rate 87 /min EMY PEREZ MD [facility] 09-12-2022 16:20-0500 Respiratory rate 16 /min EMY PEREZ MD [facility] 09-12-2022 16:20-0500 Systolic Blood Pressure Non-Invasive 130 1 EMY PEREZ MD [facility] 09-12-2022 14:09-0500 Body height 165 cm EMY PEREZ MD [facility] 09-12-2022 14:09-0500 Body temperature 98.6 [degF] EMY PEREZ MD [facility] 09-12-2022 14:09-0500 Body weight 105.5 kg EMY PEREZ MD [facility] 09-12-2022 14:09-0500 Diastolic Blood Pressure Non-Invasive 96 1 EMY PEREZ MD [facility] 09-12-2022 14:09-0500 Heart rate 103 /min EMY PEREZ MD [facility] 09-12-2022 14:09-0500 Respiratory rate 20 /min EMY PEREZ MD [facility] 09-12-2022 14:09-0500 Systolic Blood Pressure Non-Invasive 131 1 EMY PEREZ MD [facility] 09-10-2022 11:41-0500 Body height 165.1 cm MISSILE AND MISSILE CHECKOUT TECHNICIAN-Jefry Piña MISSILE AND MISSILE CHECKOUT TECHNICIAN Work Phone: [facility] Work Phone: 09-10-2022 11:40-0500 Body mass index (BMI) [Ratio] 38.2 kg/m2 MISSILE AND MISSILE CHECKOUT TECHNICIAN-Jefry Piña MISSILE AND MISSILE CHECKOUT TECHNICIAN Work Phone: [facility] Work Phone: 09-10-2022 11:40-0500 Body weight 104.32 kg MISSILE AND MISSILE CHECKOUT TECHNICIAN-C Ying Diopar MISSILE AND MISSILE CHECKOUT TECHNICIAN Work Phone: [facility] Work Phone: 09-10-2022 11:40-0500 Diastolic blood pressure 86 mm[Hg] MISSILE AND MISSILE CHECKOUT TECHNICIAN-C Ying Podlogar MISSILE AND MISSILE CHECKOUT TECHNICIAN Work Phone: [facility] Work Phone: 09-10-2022 11:40-0500 Heart rate 105 /min MISSILE AND MISSILE CHECKOUT TECHNICIAN-C Ying Chelogar MISSILE AND MISSILE CHECKOUT TECHNICIAN Work Phone: [facility] Work Phone: 09-10-2022 11:40-0500 Systolic blood pressure 148 mm[Hg] MISSILE AND MISSILE CHECKOUT TECHNICIAN-C Ying Podlogar MISSILE AND MISSILE CHECKOUT TECHNICIAN Work Phone: [facility] Work Phone: 08-13-2022 10:00-0500 Body mass index (BMI) [Ratio] 39.2 kg/m2 MISSILE AND MISSILE CHECKOUT TECHNICIAN-C Ying Chelogar MISSILE AND MISSILE CHECKOUT TECHNICIAN Work Phone: [facility] Work Phone: 08-13-2022 10:00-0500 Body weight 107.04 kg MISSILE AND MISSILE CHECKOUT TECHNICIAN-C Ying Podlogar MISSILE AND MISSILE CHECKOUT TECHNICIAN Work Phone: [facility] Work Phone: 08-13-2022 10:00-0500 Diastolic blood pressure 80 mm[Hg] MISSILE AND MISSILE CHECKOUT TECHNICIAN-C Ying Podlogar MISSILE AND MISSILE CHECKOUT TECHNICIAN Work Phone: [facility] Work Phone: 08-13-2022 10:00-0500 Systolic blood pressure 130 mm[Hg] MISSILE AND MISSILE CHECKOUT TECHNICIAN-C Ying Podlogar MISSILE AND MISSILE CHECKOUT TECHNICIAN Work Phone: [facility] Work Phone: 08-07-2022 16:01-0500 Body temperature 97.81 [degF] Giorgi Groves APRN.DIVEMASTER Work Phone: [facility] 08-07-2022 16:01-0500 Body weight 106.14 kg Giorgi Groves APRN.DIVEMASTER Work Phone: [facility] 08-07-2022 16:01-0500 Diastolic blood pressure 76 mm[Hg] Goirgi Groves DOCK ATTENDANT.DIVEMASTER Work Phone: [facility] 08-07-2022 16:01-0500 Heart rate 98 /min Giorgi Groves DOCK ATTENDANT.DIVEMASTER Work Phone: [facility] 08-07-2022 16:01-0500 Respiratory rate 16 /min Giorgi Groves DOCK ATTENDANT.DIVEMASTER Work Phone: [facility] 08-07-2022 16:01-0500 SaO2% (BldA) [Mass fraction] 97 % Giorgi Groves DOCK ATTENDANT.DIVEMASTER Work Phone: [facility] 08-07-2022 16:01-0500 Systolic blood pressure 122 mm[Hg] Giorgi Groves DOCK ATTENDANT.DIVEMASTER Work Phone: [facility] 07-27-2022 04:53-0400 Body temperature 99.86 [degF] RICKY FROMASHLEYT DO [facility] 07-27-2022 04:53-0400 Diastolic blood pressure 87 mm[Hg] RICKY FROMMELT DO [facility] 07-27-2022 04:53-0400 Heart rate 110 /min RICKY FROMMELT DO [facility] 07-27-2022 04:53-0400 Respiratory rate 20 /min RICKY FROMMELT DO [facility] 07-27-2022 04:53-0400 Systolic blood pressure 128 mm[Hg] RICKY FROMMELT DO [facility] 07-23-2022 10:59-0400 Body weight 105.69 kg Ying Piña DOCK ATTENDANT.DIVEMASTER Work Phone: [facility] 07-23-2022 10:59-0400 Diastolic blood pressure 84 mm[Hg] Ying Podlogar DOCK ATTENDANT.DIVEMASTER Work Phone: [facility] 07-23-2022 10:59-0400 Heart rate 102 /min Ying Podlogar DOCK ATTENDANT.DIVEMASTER Work Phone: [facility] 07-23-2022 10:59-0400 Respiratory rate 18 /min Ying Podlogar DOCK ATTENDANT.DIVEMASTER Work Phone: [facility] 07-23-2022 10:59-0400 SaO2% (BldA) [Mass fraction] 98 % Ying Podlogar DOCK ATTENDANT.DIVEMASTER Work Phone: [facility] 07-23-2022 10:59-0400 Systolic blood pressure 128 mm[Hg] Ying Podlogar DOCK ATTENDANT.DIVEMASTER Work Phone: [facility] 07-20-2022 16:31-0400 Body temperature 98.42 [degF] DR DEAN CARCAMO MD [facility] 07-20-2022 16:31-0400 Diastolic blood pressure 92 mm[Hg] DR DEAN CARCAMO MD [facility] 07-20-2022 16:31-0400 Heart rate 78 /min DR DEAN CARCAMO MD [facility] 07-20-2022 16:31-0400 Respiratory rate 18 /min DR DEAN CARCAMO MD [facility] 07-20-2022 16:31-0400 Systolic blood pressure 162 mm[Hg] DR DEAN CARCAMO MD [facility] 06-19-2022 12:31-0400 Body temperature 98.42 [degF] DR RAFA LEIGH MD [facility] 06-19-2022 12:31-0400 Diastolic blood pressure 99 mm[Hg] DR RAFA LEIGH MD [facility] 06-19-2022 12:31-0400 Heart rate 91 /min DR RAFA LEIGH MD [facility] 06-19-2022 12:31-0400 Respiratory rate 18 /min DR RAFA LEIGH MD [facility] 06-19-2022 12:31-0400 Systolic blood pressure 147 mm[Hg] DR RAFA LEIGH MD [facility] 06-12-2022 10:17-0400 Body mass index (BMI) [Ratio] 38.7 kg/m2 MISSILE AND MISSILE CHECKOUT TECHNICIAN-C Ying Piña MISSILE AND MISSILE CHECKOUT TECHNICIAN Work Phone: [facility] Work Phone: 06-12-2022 10:17-0400 Body weight 105.46 kg MISSILE AND MISSILE CHECKOUT TECHNICIAN-C Ying Piña MISSILE AND MISSILE CHECKOUT TECHNICIAN Work Phone: [facility] Work Phone: 06-12-2022 10:17-0400 Diastolic blood pressure 81 mm[Hg] MISSILE AND MISSILE CHECKOUT TECHNICIAN-C Ying Piña MISSILE AND MISSILE CHECKOUT TECHNICIAN Work Phone: [facility] Work Phone: 06-12-2022 10:17-0400 Systolic blood pressure 148 mm[Hg] MISSILE AND MISSILE CHECKOUT TECHNICIAN-C Ying Piña MISSILE AND MISSILE CHECKOUT TECHNICIAN Work Phone: [facility] Work Phone: 05-01-2022 15:31-0400 Diastolic blood pressure 100 mm[Hg] Mani Gardner MD Work Phone: [facility] 05-01-2022 15:31-0400 Systolic blood pressure 150 mm[Hg] Mani Gardner MD Work Phone: [facility] 05-01-2022 14:37-0400 Body temperature 98.29 [degF] Mani Gardner MD Work Phone: [facility] 05-01-2022 14:37-0400 Body weight 103.42 kg Mani Gardner MD Work Phone: [facility] 05-01-2022 14:37-0400 Heart rate 90 /min Mani Gardner MD Work Phone: [facility] 05-01-2022 14:37-0400 Respiratory rate 16 /min Mani Gardner MD Work Phone: [facility] 05-01-2022 14:37-0400 SaO2% (BldA) [Mass fraction] 98 % Mani Gardner MD Work Phone: [facility] 04-30-2022 11:23-0400 Body temperature 97.9 [degF] Ying Podlogar DOCK ATTENDANT.DIVEMASTER Work Phone: [facility] 04-30-2022 11:23-0400 Body weight 102.42 kg Ying Podlogar DOCK ATTENDANT.DIVEMASTER Work Phone: [facility] 04-30-2022 11:23-0400 Diastolic blood pressure 84 mm[Hg] Ying Podlogar DOCK ATTENDANT.DIVEMASTER Work Phone: [facility] 04-30-2022 11:23-0400 Heart rate 77 /min Ying Podlogar DOCK ATTENDANT.DIVEMASTER Work Phone: [facility] 04-30-2022 11:23-0400 Respiratory rate 18 /min Ying Podlogar DOCK ATTENDANT.DIVEMASTER Work Phone: [facility] 04-30-2022 11:23-0400 SaO2% (BldA) [Mass fraction] 96 % Ying Podlogar DOCK ATTENDANT.DIVEMASTER Work Phone: [facility] 04-30-2022 11:23-0400 Systolic blood pressure 126 mm[Hg] Ying Podlogar DOCK ATTENDANT.DIVEMASTER Work Phone: [facility] 04-23-2022 12:41-0400 Body temperature 97.39 [degF] Traci Barker DOCK ATTENDANT.DIVEMASTER Work Phone: [facility] 04-23-2022 12:41-0400 Body weight 103.6 kg Traci Lucero DOCK ATTENDANT.DIVEMASTER Work Phone: [facility] 04-23-2022 12:41-0400 Diastolic blood pressure 76 mm[Hg] Traci Lucero DOCK ATTENDANT.DIVEMASTER Work Phone: [facility] 04-23-2022 12:41-0400 Heart rate 66 /min Traci Lucero DOCK ATTENDANT.DIVEMASTER Work Phone: [facility] 04-23-2022 12:41-0400 Respiratory rate 16 /min Traci Luceor DOCK ATTENDANT.DIVEMASTER Work Phone: [facility] 04-23-2022 12:41-0400 SaO2% (BldA) [Mass fraction] 97 % Traci Lucero DOCK ATTENDANT.DIVEMASTER Work Phone: [facility] 04-23-2022 12:41-0400 Systolic blood pressure 128 mm[Hg] Traci Lucero DOCK ATTENDANT.DIVEMASTER Work Phone: [facility] 04-19-2022 15:52-0400 Body temperature 97.2 [degF] Darrel Gin DOCK ATTENDANT.DIVEMASTER Work Phone: [facility] 04-19-2022 15:52-0400 Body weight 102.97 kg Darrel Greenfield DOCK ATTENDANT.DIVEMASTER Work Phone: [facility] 04-19-2022 15:52-0400 Diastolic blood pressure 70 mm[Hg] Darrel Greenfield DOCK ATTENDANT.DIVEMASTER Work Phone: [facility] 04-19-2022 15:52-0400 Heart rate 76 /min Darrel Greenfield DOCK ATTENDANT.DIVEMASTER Work Phone: [facility] 04-19-2022 15:52-0400 Respiratory rate 16 /min Darrel Greenfield DOCK ATTENDANT.DIVEMASTER Work Phone: [facility] 04-19-2022 15:52-0400 SaO2% (BldA) [Mass fraction] 98 % Darrel Greenfield DOCK ATTENDANT.DIVEMASTER Work Phone: [facility] 04-19-2022 15:52-0400 Systolic blood pressure 118 mm[Hg] Darrel Greenfield APRN.CNP Work Phone: [facility] 04-18-2022 10:56-0400 Body height 165.1 cm MISSILE AND MISSILE CHECKOUT TECHNICIAN-C Shalonda Kim Work Phone: [facility] Work Phone: 04-18-2022 10:53-0400 Body mass index (BMI) [Ratio] 37.5 kg/m2 MISSILE AND MISSILE CHECKOUT TECHNICIAN-C Shalonda Kim Work Phone: [facility] Work Phone: 04-18-2022 10:53-0400 Body weight 102.51 kg MISSILE AND MISSILE CHECKOUT TECHNICIAN-C Shalonda Kim Work Phone: [facility] Work Phone: 04-18-2022 10:53-0400 Diastolic blood pressure 80 mm[Hg] MISSILE AND MISSILE CHECKOUT TECHNICIAN-C Shalonda Kim Work Phone: [facility] Work Phone: 04-18-2022 10:53-0400 Systolic blood pressure 136 mm[Hg] MISSILE AND MISSILE CHECKOUT TECHNICIAN-C Shalonda Kim Work Phone: [facility] Work Phone: 03-21-2022 14:31-0400 Body height 165.1 cm MISSILE AND MISSILE CHECKOUT TECHNICIAN-C Shalonda Kim Work Phone: [facility] Work Phone: 03-21-2022 14:27-0400 Body mass index (BMI) [Ratio] 38.3 kg/m2 MISSILE AND MISSILE CHECKOUT TECHNICIAN-C Shalonda Kim Work Phone: [facility] Work Phone: 03-21-2022 14:27-0400 Body weight 104.49 kg MISSILE AND MISSILE CHECKOUT TECHNICIAN-C Shalonda Kim Work Phone: [facility] Work Phone: 03-21-2022 14:27-0400 Diastolic blood pressure 82 mm[Hg] MISSILE AND MISSILE CHECKOUT TECHNICIAN-C Shalonda Kim Work Phone: [facility] Work Phone: 03-21-2022 14:27-0400 Systolic blood pressure 128 mm[Hg] MISSILE AND MISSILE CHECKOUT TECHNICIAN-C Shalonda Kim Work Phone: [facility] Work Phone: 02-06-2022 14:08-0400 Body mass index (BMI) [Ratio] 38.5 kg/m2 MISSILE AND MISSILE CHECKOUT TECHNICIAN-C Shalonda Kim Work Phone: [facility] Work Phone: 02-06-2022 14:08-0400 Body weight 104.89 kg MISSILE AND MISSILE CHECKOUT TECHNICIAN-C Shalonda Kim Work Phone: [facility] Work Phone: 02-06-2022 14:08-0400 Diastolic blood pressure 88 mm[Hg] MISSILE AND MISSILE CHECKOUT TECHNICIAN-C Shalonda Kim Work Phone: [facility] Work Phone: 02-06-2022 14:08-0400 Systolic blood pressure 134 mm[Hg] MISSILE AND MISSILE CHECKOUT TECHNICIAN-C Shalonda Kim Work Phone: [facility] Work Phone: 02-06-2022 14:08-0400 Body height 165.1 cm MISSILE AND MISSILE CHECKOUT TECHNICIAN-C Shalonda Kim Work Phone: [facility] Work Phone: 02-06-2022 14:08-0400 Body mass index (BMI) [Ratio] 38.5 kg/m2 MISSILE AND MISSILE CHECKOUT TECHNICIAN-C Shalonda Kim Work Phone: [facility] Work Phone: 02-06-2022 14:08-0400 Body weight 104.89 kg MISSILE AND MISSILE CHECKOUT TECHNICIAN-C Shalonda Kim Work Phone: [facility] Work Phone: 02-06-2022 14:08-0400 Diastolic blood pressure 88 mm[Hg] MISSILE AND MISSILE CHECKOUT TECHNICIAN-C Shalonda Kim Work Phone: [facility] Work Phone: 02-06-2022 14:08-0400 Systolic blood pressure 134 mm[Hg] MISSILE AND MISSILE CHECKOUT TECHNICIAN-C Shalonda Kim Work Phone: [facility] Work Phone: 01-21-2022 13:44-0400 Diastolic blood pressure 85 mm[Hg] Ying Podlogar DOCK ATTENDANT.DIVEMASTER Work Phone: [facility] 01-21-2022 13:44-0400 Heart rate 94 /min Ying Podlogar DOCK ATTENDANT.DIVEMASTER Work Phone: [facility] 01-21-2022 13:44-0400 Systolic blood pressure 129 mm[Hg] Ying Podlogar DOCK ATTENDANT.DIVEMASTER Work Phone: [facility] 01-21-2022 13:23-0400 Body temperature 98.2 [degF] Ying Podlogar DOCK ATTENDANT.DIVEMASTER Work Phone: [facility] 01-21-2022 13:23-0400 Body weight 104.42 kg Ying Podlogar DOCK ATTENDANT.DIVEMASTER Work Phone: [facility] 01-21-2022 13:23-0400 Respiratory rate 18 /min Ying Podlogar DOCK ATTENDANT.DIVEMASTER Work Phone: [facility] 01-21-2022 13:23-0400 SaO2% (BldA) [Mass fraction] 96 % Ying Podlogar DOCK ATTENDANT.DIVEMASTER Work Phone: [facility] 01-10-2022 15:49-0400 Body weight 106.5 kg Demario Garcia MD Work Phone: [facility] 01-10-2022 15:49-0400 Diastolic blood pressure 66 mm[Hg] Demario Garcia MD Work Phone: [facility] 01-10-2022 15:49-0400 Heart rate 96 /min Demario Garcia MD Work Phone: [facility] 01-10-2022 15:49-0400 Respiratory rate 16 /min Demario Garcia MD Work Phone: [facility] 01-10-2022 15:49-0400 SaO2% (BldA) [Mass fraction] 96 % Demario Garcia MD Work Phone: [facility] 01-10-2022 15:49-0400 Systolic blood pressure 118 mm[Hg] Demario Garcia MD Work Phone: [facility] 12-11-2021 11:27-0400 Body mass index (BMI) [Ratio] 38.6 kg/m2 MISSILE AND MISSILE CHECKOUT TECHNICIAN-C Shalonda Kim Work Phone: [facility] Work Phone: 12-11-2021 11:27-0400 Body weight 105.31 kg MISSILE AND MISSILE CHECKOUT TECHNICIAN-C Shalonda Kim Work Phone: [facility] Work Phone: 12-11-2021 11:27-0400 Diastolic blood pressure 100 mm[Hg] MISSILE AND MISSILE CHECKOUT TECHNICIAN-C Shalonda Kim Work Phone: [facility] Work Phone: 12-11-2021 11:27-0400 Systolic blood pressure 140 mm[Hg] MISSILE AND MISSILE CHECKOUT TECHNICIAN-C Shalonda Kim Work Phone: [facility] Work Phone: 12-11-2021 11:27-0400 Body height 165.1 cm MISSILE AND MISSILE CHECKOUT TECHNICIAN-C Shalonda Kim Work Phone: [facility] Work Phone: 12-11-2021 11:27-0400 Body mass index (BMI) [Ratio] 38.6 kg/m2 MISSILE AND MISSILE CHECKOUT TECHNICIAN-C Shalonda Kim Work Phone: [facility] Work Phone: 12-11-2021 11:27-0400 Body weight 105.31 kg MISSILE AND MISSILE CHECKOUT TECHNICIAN-C Shalonda Kim Work Phone: [facility] Work Phone: 12-11-2021 11:27-0400 Diastolic blood pressure 100 mm[Hg] MISSILE AND MISSILE CHECKOUT TECHNICIAN-C Shalonda Kim Work Phone: [facility] Work Phone: 12-11-2021 11:27-0400 Systolic blood pressure 140 mm[Hg] MISSILE AND MISSILE CHECKOUT TECHNICIAN-C Shalonda [place] Work Phone: [facility] Work Phone: 11-26-2021 20:19-0500 Diastolic blood pressure 81 mm[Hg] WILVER DURESKA DO [facility] 11-26-2021 20:19-0500 Heart rate 102 /min WILVER DURESKA DO [facility] 11-26-2021 20:19-0500 Respiratory rate 20 /min WILVER DURESKA DO [facility] 11-26-2021 20:19-0500 Systolic blood pressure 150 mm[Hg] WILVER DURESKA DO [facility] 11-26-2021 19:02-0500 Body temperature 98.24 [degF] WILVER DURESKA DO [facility] 11-26-2021 19:02-0500 Diastolic blood pressure 92 mm[Hg] WILVER DURESKA DO [facility] [facility] 11-26-2021 19:02-0500 Heart rate 114 /min WILVER DURESKA DO [facility] 11-26-2021 19:02-0500 Respiratory rate 20 /min WILVER BANERJEE DO [facility] 11-26-2021 19:02-0500 Systolic blood pressure 147 mm[Hg] WILVER BANERJEE DO [facility] 11-25-2021 14:28-0500 Body temperature 98.24 [degF] TONY HILL MD [facility] 11-25-2021 14:28-0500 Diastolic blood pressure 96 mm[Hg] TONY HILL MD [facility] 11-25-2021 14:28-0500 Heart rate 93 /min TONY HILL MD [facility] 11-25-2021 14:28-0500 Respiratory rate 18 /min TONY HILL MD [facility] 11-25-2021 14:28-0500 Systolic blood pressure 153 mm[Hg] TONY HILL MD [facility] 11-08-2021 12:49-0500 Body mass index (BMI) [Ratio] 38.8 kg/m2 MISSILE AND MISSILE CHECKOUT TECHNICIAN-C [employer] Work Phone: [facility] Work Phone: 11-08-2021 12:49-0500 Body weight 105.85 kg MISSILE AND MISSILE CHECKOUT TECHNICIAN-C [employer] Work Phone: [facility] Work Phone: 11-08-2021 12:49-0500 Diastolic blood pressure 84 mm[Hg] MISSILE AND MISSILE CHECKOUT TECHNICIAN-C Shalonda Kim Work Phone: [facility] Work Phone: 11-08-2021 12:49-0500 Systolic blood pressure 128 mm[Hg] MISSILE AND MISSILE CHECKOUT TECHNICIAN-C Shalonda Kim Work Phone: [facility] Work Phone: 10-26-2021 18:08-0500 Body height 165 cm EMY PEREZ MD [facility] 10-26-2021 18:08-0500 Body temperature 98.06 [degF] EMY PEREZ MD [facility] 10-26-2021 18:08-0500 Body weight 104.5 kg EMY PEREZ MD [facility] 10-26-2021 18:08-0500 Diastolic blood pressure 95 mm[Hg] EMY PEREZ MD [facility] 10-26-2021 18:08-0500 Heart rate 98 /min EMY PEREZ MD [facility] 10-26-2021 18:08-0500 Respiratory rate 16 /min EMY PEREZ MD [facility] 10-26-2021 18:08-0500 Systolic blood pressure 140 mm[Hg] EMY PEREZ MD [facility] 08-31-2021 07:41-0500 Body mass index (BMI) [Ratio] 38 kg/m2 MISSILE AND MISSILE CHECKOUT TECHNICIAN-C Shalonda Danielss Work Phone: [facility] Work Phone: 08-31-2021 07:41-0500 Body weight 103.58 kg MISSILE AND MISSILE CHECKOUT TECHNICIAN-C Shalonda Danielss Work Phone: [facility] Work Phone: 08-31-2021 07:41-0500 Diastolic blood pressure 110 mm[Hg] MISSILE AND MISSILE CHECKOUT TECHNICIAN-C Shalonda Danielss Work Phone: [facility] Work Phone: 08-31-2021 07:41-0500 Systolic blood pressure 150 mm[Hg] MISSILE AND MISSILE CHECKOUT TECHNICIAN-C Shalonda Kim Work Phone: [facility] Work Phone: Encounters Encounter Date Encounter Type Care Provider Facility Start: 04-16-2025 ambulatory Ying Podlogar MISSILE AND MISSILE CHECKOUT TECHNICIAN Facil ity:[facility] Start: 03-24-2025 End: 03-24-2025 Patient encounter procedure Isa Chow MISSILE AND MISSILE CHECKOUT TECHNICIAN-C -[facility] Work Phone: Start: 03-24-2025 End: 03-24-2025 ambulatory Ying Podloglinnette MISSILE AND MISSILE CHECKOUT TECHNICIAN-C Work Phone: [facility] Work Phone: Start: 03-24-2025 End: 03-24-2025 ambulatory Ying Podlogar MISSILE AND MISSILE CHECKOUT TECHNICIAN Facility:[facility] Start: 03-19-2025 End: 03-22-2025 Telephone encounter Ying Cheloglinnette DOCK ATTENDANT.DIVEMASTER Work Phone: [facility] [place] Comment on above: Patient Question Start: 03-02-2025 End: 03-02-2025 ambulatory YING PODLOGAR Facility:[facility] Start: 03-02-2025 End: 03-02-2025 Patient encounter procedure Ying Chelogar DOCK ATTENDANT.DIVEMASTER Work Phone: [facility] [place] Comment on above: Abscess of right luis ast (Primary Dx); Type 2 diabetes mellitus without complication, without long-term current use of insulin (HCC) Start: 02-24-2025 End: 02-24-2025 Emergency department patient visit EMY PEREZ MD [facility] Start: 02-14-2025 End: 02-14-2025 Follow-up encounter Danish Yang APRN.DIVEMASTER Work Phone: [facility] Comment on above: Results Start: 02-13-2025 End: 02-13-2025 Patient encounter procedure Michelle Mcwilliams APRN.DIVEMASTER Work Phone: [facility] Comment on above: Primary amenorrhea ( Primary Dx); Vaginal spotting; Bleeding after intercourse; Encounter for screening examination for sexually transmitted disease Start: 02-13-2025 End: 02-13-2025 ambulatory YING PODLOGAR Facility:[facility] Start: 12-28-2024 End: 02-27-2025 Follow-up encounter Pancho Mcbride APRN.DIVEMASTER Work Phone: [facility] Start: 12-27-2024 End: 12-27-2024 ambulatory YING PODLOGAR Facility:[facility] Start: 12-27-2024 End: 12-27-2024 Patient encounter procedure Traci Barker APRN.DIVEMASTER Work Phone: [facility] Comment on above: Burning with urinati on (Primary Dx); Acute vaginitis Start: 12-09-2024 End: 12-09-2024 Follow-up encounter Darrel Greenfield APRN.DIVEMASTER Work Phone: [facility] Start: 12-08-2024 End: 12-08-2024 ambulatory YING PODLOGAR Facility:[facility] Start: 12-08-2024 End: 12-08-2024 Patient encounter procedure Darrel Greenfield APRN.DIVEMASTER Work Phone: [facility] Comment on above: Vaginal discharge (P rimary Dx); Urgency of urination Start: 11-05-2024 End: 11-06-2024 Emergency department patient visit YING PODLOGLINNETTE DOCK ATTENDANT.DIVEMASTER Facility:[facility] Start: 11-05-2024 End: 11-06-2024 Observation MORGAN YU DOCK ATTENDANT-DIVEMASTER [facility] Start: 11-03-2024 ambulatory Ying Podlogar MISSILE AND MISSILE CHECKOUT TECHNICIAN Facil ity:[facility] Start: 11-02-2024 End: 11-04-2024 Telephone encounter Ying Podloglinnette DOCK ATTENDANT.DIVEMASTER Work Phone: [facility] [place] Comment on above: Patient Question Start: 11-02-2024 End: 11-02-2024 ambulatory YING PODLOGAR Facility:[facility] Start: 11-02-2024 End: 11-02-2024 Patient encounter procedure Paradisemal Chambers DOCK ATTENDANT.DIVEMASTER Work Phone: [facility] Comment on above: Vaginal discharge (P rimary Dx); Dysuria; Glucosuria Start: 10-24-2024 End: 10-25-2024 Emergency department patient visit YING PODLOGLINNETTE DOCK ATTENDANT.CUCO Facility:[facility] Start: 10-21-2024 End: 10-21-2024 ambulatory YING PODLOGAR Facility:[facility] Start: 10-21-2024 End: 10-21-2024 Office outpatient visit 25 minutes Giorgi Groves DOCK ATTENDANT.DIVEMASTER Work Phone: [facility] Comment on above: Dental infection (Pr imary Dx) Start: 09-01-2024 End: 09-01-2024 ambulatory YING PODLOGAR Facility:[facility] Start: 09-01-2024 End: 09-01-2024 Patient encounter procedure Michelle Mcwilliams DOCK ATTENDANT.DIVEMASTER Work Phone: [facility] Comment on above: Pelvic pain (Primary Dx); Irregular menstrual bleeding Start: 2024 End: 2024 ambulatory YING PODLOGAR Facility:[facility] Start: 2024 End: 2024 Office outpatient visit 25 minutes aMni Gardner MD Work Phone: [facility] Comment on above: Urgency of urination (Primary Dx); Type 2 diabetes mellitus without complication, without long-term current use of insulin (HCC) Start: 07-04-2024 End: 07-05-2024 Telephone encounter Darrel Greenfield APRN.CNP Work Phone: [facility] Comment on above: Results Start: 07-03-2024 End: 07-03-2024 Telephone encounter Michelle Mcwilliams APRN.CNP Work Phone: [facility] Comment on above: Results Start: 07-02-2024 End: 07-02-2024 ambulatory YING PODLOGAR Facility:[facility] Start: 07-02-2024 End: 07-02-2024 Patient encounter procedure Darrel Greenfield APRN.DIVEMASTER Work Phone: [facility] Comment on above: Burning with urinati on (Primary Dx); Vaginal discharge Start: 07-02-2024 End: 07-08-2024 Telephone encounter Ying Piña APRN.DIVEMASTER Work Phone: [facility] [place] Comment on above: requesting a refill on medication Start: 06-24-2024 End: 06-25-2024 Telephone encounter Janene AIKEN Work Phone: [facility] Comment on above: Results Start: 06-23-2024 End: 06-23-2024 ambulatory YING PODLOGAR Facility:[facility] Start: 06-23-2024 End: 06-23-2024 Patient encounter procedure Michelle Mcwilliams APRN.DIVEMASTER Work Phone: [facility] Comment on above: Vaginal burning (Radha emma Dx); Acute cystitis with hematuria; Dysuria; Vaginal discharge; Common cold virus; Glucosuria Start: 06-17-2024 End: 06-17-2024 [facility] Facility:[facility] Start: 05-27-2024 End: 05-27-2024 ambulatory YING PODLOGAR Facility:[facility] Start: 05-27-2024 End: 05-27-2024 [facility] Facility:[facility] Start: 05-27-2024 End: 05-27-2024 ambulatory [facility] Facility:[facility] Start: 04-09-2024 End: 04-09-2024 Patient encounter procedure Ying Chelogar DOCK ATTENDANT.DIVEMASTER Work Phone: [facility] Comment on above: Type 2 diabetes ruma itus without complication, without long- term current use of insulin (HCC) (Primary Dx) Start: 04-09-2024 End: 04-09-2024 ambulatory YING PODLOGAR Facility:[facility] Start: 03-30-2024 Refill Ying Podlogar DOCK ATTENDANT.DIVEMASTER Work Phone: [facility] Comment on above: Refill Request Start: 03-28-2024 End: 03-28-2024 ambulatory YING PODLOGAR Facility:[facility] Start: 03-28-2024 End: 03-28-2024 Patient encounter procedure Darrel Greenfield APRN.DIVEMASTER Work Phone: [facility] Comment on above: Sore throat (Primary Dx); Acute cough Start: 02-13-2024 End: 02-13-2024 Patient encounter procedure Darrel Greenfield APRN.DIVEMASTER Work Phone: [facility] Comment on above: Recurrent acute supp urative otitis media without spontaneous rupture of left tympanic membrane (Primary Dx) Start: 02-07-2024 End: 02-07-2024 Patient encounter procedure Darrel Greenfield APRN.DIVEMASTER Work Phone: [facility] Comment on above: Acute otitis media, bilateral (Primary Dx) Start: 01-27-2024 Telephone encounter Ying Chel ogar DOCK ATTENDANT.DIVEMASTER Work Phone: [facility] [place] Start: 12-10-2023 End: 12-10-2023 Patient encounter procedure Ying Cheloglinnette DOCK ATTENDANT.DIVEMASTER Work Phone: [facility] [place] Comment on above: Hypoglycemia (Primar y Dx) Start: 06-29-2023 End: 06-29-2023 Patient encounter procedure Darrel Greenfield APRN.DIVEMASTER Work Phone: [facility] Comment on above: Sore throat (Primary Dx); Skin irritation Start: 06-17-2023 End: 06-17-2023 Emergency department patient visit EMY PEREZ MD [facility] Start: 06-16-2023 End: 06-16-2023 Patient encounter procedure Hoda Cantu APRN.CUCO Work Phone: [facility] Comment on above: Pain, dental (Primar y Dx) Start: 03-31-2023 End: 03-31-2023 Patient encounter procedure Ying Piña APRN.CUCO Work Phone: [facility] [place] Comment on above: Anxiety and depressi on (Primary Dx); Obesity, Class I, BMI 30-34.9 Start: 03-12-2023 End: 03-12-2023 Patient encounter procedure Ying Piña APRN.CUCO Work Phone: [facility] [place] Comment on above: Dysuria (Primary Dx) Start: 03-05-2023 End: 03-05-2023 Patient encounter procedure Janene AIKEN Work Phone: [facility] Comment on above: Burning with urinati on (Primary Dx) Start: 03-03-2023 End: 03-03-2023 Patient encounter procedure Ying Piña APRN.CUCO Work Phone: [facility] [place] Comment on above: Anxiety and depressi on (Primary Dx); Obesity, Class II, BMI 35-39.9; Type 2 diabetes mellitus without complication, without long-term current use of insulin ([facility]) Start: 02-12-2023 Telephone encounter Ying escalera APRN.CUCO Work Phone: [facility] [place] Comment on above: FMLA papers/letter Start: 02-03-2023 Telephone encounter Ying escalera APRN.CNP Work Phone: [facility] [place] Comment on above: FMLA papers Start: 02-03-2023 End: 02-03-2023 Patient encounter procedure Ying Piña APRN.CNP Work Phone: [facility] Comment on above: Anxiety and depressi on (Primary Dx) Start: 01-15-2023 End: 01-15-2023 ambulatory MISSILE AND MISSILE CHECKOUT TECHNICIAN-C Ying Piña MISSILE AND MISSILE CHECKOUT TECHNICIAN Work Phone: [facility] Work Phone: Start: 01-15-2023 End: 01-15-2023 Patient encounter procedure MISSILE AND MISSILE CHECKOUT TECHNICIAN-C Ying Piña MISSILE AND MISSILE CHECKOUT TECHNICIAN Work Phone: [facility] Start: 01-04-2023 Telephone encounter Ping tafoya PA-C Work Phone: [facility] Comment on above: Results Start: 11-15-2022 End: 11-15-2022 Refill Ying Podloglinnette DOCK ATTENDANT.DIVEMASTER Work Phone: [facility] Comment on above: Refill Request Throat pain (Primary Dx); Mild intermittent asthma with acute exacerbation Start: 10-02-2022 End: 10-02-2022 Patient encounter procedure MISSILE AND MISSILE CHECKOUT TECHNICIAN-C Ying Piña MISSILE AND MISSILE CHECKOUT TECHNICIAN Work Phone: [facility] Start: 09-27-2022 End: 09-28-2022 Emergency department patient visit YING PIÑA DOCK ATTENDANT.DIVEMASTER Facility:[facility] Start: 09-23-2022 End: 09-23-2022 Patient encounter procedure Mani Gardner MD Work Phone: [facility] Comment on above: URI, acute (Primary Dx) Start: 09-19-2022 End: 09-19-2022 Patient encounter procedure Michelle Mcwilliams DOCK ATTENDANT.DIVEMASTER Work Phone: [facility] Comment on above: Sore throat (Primary Dx); Flu-like symptoms Start: 09-12-2022 End: 09-12-2022 Emergency department patient visit EMY PEREZ MD Facility:[facility] Start: 09-12-2022 End: 09-12-2022 Emergency department patient visit EMY PEREZ MD [facility] Start: 09-11-2022 End: 09-11-2022 ambulatory MISSILE AND MISSILE CHECKOUT TECHNICIAN-C Ying Piña MISSILE AND MISSILE CHECKOUT TECHNICIAN Work Phone: [facility] Work Phone: Start: 09-11-2022 End: 09-11-2022 Patient encounter procedure MISSILE AND MISSILE CHECKOUT TECHNICIAN-C Ying Chelogar MISSILE AND MISSILE CHECKOUT TECHNICIAN Work Phone: [facility]-Laboratory, Specimen Start: 09-10-2022 End: 09-10-2022 Patient encounter procedure MISSILE AND MISSILE CHECKOUT TECHNICIAN-C Ying Podlogar MISSILE AND MISSILE CHECKOUT TECHNICIAN Work Phone: [facility] Start: 08-13-2022 End: 08-13-2022 Patient encounter procedure MISSILE AND MISSILE CHECKOUT TECHNICIAN-C Ying Cheloglinnette MISSILE AND MISSILE CHECKOUT TECHNICIAN Work Phone: [facility] Start: 08-07-2022 End: 08-07-2022 Patient encounter procedure Giorgi Groves DOCK ATTENDANT.DIVEMASTER Work Phone: [facility] Comment on above: Acute otitis media, left (Primary Dx) Start: 08-05-2022 ambulatory Ying Piña APRN.DIVEMASTER Work Phone: [facility] [place] Comment on above: Medicine Start: 07-27-2022 End: 07-27-2022 Emergency department patient visit RICKY NICHOLSONJUAN DANIEL Facility:[facility] Start: 07-27-2022 End: 07-27-2022 Emergency department patient visit RICKY LEONArie DO [facility] Start: 07-23-2022 End: 07-23-2022 Patient encounter procedure Ying Piña APRN.DIVEMASTER Work Phone: [facility] Comment on above: Pain in both lower e xtremities (Primary Dx); Encounter for immunization Start: 07-20-2022 End: 07-20-2022 Emergency department patient visit DEAN CARCAMO MD Facility:[facility] Start: 07-20-2022 End: 07-20-2022 Emergency department patient visit DR DEAN CARCAMO MD [facility] Start: 07-14-2022 ambulatory Ying Chelogar DOCK ATTENDANT.DIVEMASTER Work Phone: [facility] Comment on above: Medicine Start: 06-19-2022 End: 06-19-2022 Emergency department patient visit RAFA LEIGH Facility:[facility] Start: 06-19-2022 End: 06-19-2022 Emergency department patient visit DR RAFA LEIGH MD [facility] Start: 06-12-2022 End: 06-12-2022 Patient encounter procedure MISSILE AND MISSILE CHECKOUT TECHNICIAN-C Ying Piña MISSILE AND MISSILE CHECKOUT TECHNICIAN Work Phone: [facility], [facility] Start: 06-12-2022 End: 06-12-2022 Patient encounter procedure MISSILE AND MISSILE CHECKOUT TECHNICIAN-C Ying Piña NP Work Phone: [facility] Start: 05-14-2022 End: 05-14-2022 Patient encounter procedure MISSILE AND MISSILE CHECKOUT TECHNICIAN-C Shalonda Kim Work Phone: [facility] Start: 05-03-2022 ambulatory Ying Cheloglinnette DOCK ATTENDANT.DIVEMASTER Work Phone: [facility] Start: 05-03-2022 Follow-up encounter Ying escalera DOCK ATTENDANT.DIVEMASTER Work Phone: [facility] Comment on above: Follow Up Start: 05-01-2022 End: 05-01-2022 Patient encounter procedure Mani Gardner MD Work Phone: [facility] Comment on above: Non-recurrent acute suppurative otitis media of both ears without spontaneous rupture of tympanic membranes (Primary Dx); Elevated blood pressure reading without diagnosis of hypertension Start: 05-01-2022 Telephone encounter Ying escalera APRN.DIVEMASTER Work Phone: [facility] Comment on above: Results Start: 04-30-2022 End: 04-30-2022 Patient encounter procedure Ying Piña APRN.DIVEMASTER Work Phone: [facility] Comment on above: Skin eruption (Prima ry Dx) Start: 04-23-2022 End: 04-23-2022 Patient encounter procedure Traci Mcmullenk DOCK ATTENDANT.DIVEMASTER Work Phone: [facility] Comment on above: Rash (Primary Dx) Start: 04-19-2022 End: 04-19-2022 Patient encounter procedure Darrel Greenfield DOCK ATTENDANT.DIVEMASTER Work Phone: [facility] Comment on above: Itching (Primary Dx) Start: 04-18-2022 End: 04-18-2022 Patient encounter procedure MISSILE AND MISSILE CHECKOUT TECHNICIAN-C Shalonda Judy Work Phone: [facility] Start: 03-26-2022 ambulatory Nava Lopez RN NU [employer]SE MICROBIOLOGY DIRECTOR Comment on above: ongoing yeast infect ion Start: 03-21-2022 End: 03-21-2022 Patient encounter procedure MISSILE AND MISSILE CHECKOUT TECHNICIAN-C Shalonda Kim Work Phone: [facility], Specimen Start: 03-21-2022 End: 03-21-2022 Patient encounter procedure MISSILE AND MISSILE CHECKOUT TECHNICIAN-C Shalonda Kim Work Phone: [facility] Start: 02-06-2022 End: 02-06-2022 Patient encounter procedure MISSILE AND MISSILE CHECKOUT TECHNICIAN-C Shalonda Kim Work Phone: [facility], Specimen Start: 02-06-2022 End: 02-06-2022 Patient encounter procedure MISSILE AND MISSILE CHECKOUT TECHNICIAN-C Shalonda Kim Work Phone: [facility] Start: 01-22-2022 Telephone encounter Ying escalera APRN.DIVEMASTER Work Phone: [facility] Comment on above: Results Start: 01-21-2022 End: 01-21-2022 Patient encounter procedure Ying Piña APRN.DIVEMASTER Work Phone: [facility] Comment on above: Dizziness (Primary D x); Headache, unspecified headache type; Nausea and vomiting, unspecified vomiting type Start: 01-10-2022 End: 01-10-2022 Patient encounter procedure Demario Garcia MD Work Phone: [facility] Comment on above: Nasal turbinate hype rtrophy (Primary Dx); Daytime somnolence Start: 12-15-2021 End: 12-16-2021 Emergency department patient visit NONE PHYSICIAN Facility:[facility] Start: 12-11-2021 End: 12-11-2021 Patient encounter procedure GERA-Jefry Kim [facility] Start: 11-26-2021 End: 11-26-2021 Emergency department patient visit NONE PHYSICIAN Facility:[facility] Start: 11-26-2021 End: 11-26-2021 Emergency department patient visit WILVER BANERJEE DO [facility] Start: 11-25-2021 End: 11-25-2021 Emergency department patient visit TNOY HILL Facility:[facility] Start: 11-25-2021 End: 11-25-2021 Emergency department patient visit TONY HILL MD [facility] Start: 11-08-2021 End: 11-08-2021 Patient encounter procedure GERA-Jefry Kim Work Phone: [facility] Start: 10-26-2021 End: 10-26-2021 Emergency department patient visit EMY PEREZ MD Facility:[facility] Start: 10-26-2021 End: 10-26-2021 Emergency department patient visit EMY PEREZ MD [facility] Start: 08-31-2021 End: 08-31-2021 Patient encounter procedure MISSILE AND MISSILE CHECKOUT TECHNICIAN-C Shalonda Kim Work Phone: [facility] Start: 08-15-2021 Telephone encounter Percy Bagley Benita chowdhury DO Work Phone: Radiology Comment on above: Patient Update Start: 07-30-2021 End: 07-30-2021 Subsequent hospital visit by physician Xr [facility] [place] Work Phone: Radiology Comment on above: Acute bilateral low back pain with bilateral sciatica [M54.42, M54.41] Start: 07-24-2021 Telephone encounter Ying escalera APRNEnochDIVEMASTER Work Phone: [facility] [place] Comment on above: Orders Procedures Date Procedure Procedure Detail Performing Clinician Start: 03-24-2025 Liquid based cervica l cytology screening Ying Chelogar MISSILE AND MISSILE CHECKOUT TECHNICIAN-C Work Phone: Comment on above: NEGATIVE FOR INTRAEP ITHELIAL LESION OR MALIGNANCY.CELLULAR CHANGES ASSOCIATED WITH INFLAMMATION ARE PRESENT. This liquid based Th inPrep(R) pap test was screened withthe use of an image guided system. The HPV DNA reflex c riteria were not met with this specimenresult therefore, no HPV testing was performed.Performed at: [address] [id number] Director: Annita Newberry MD, Phone: [phone] Start: 03-24-2025 Gram stain microscopy J prakash Piña MISSILE AND MISSILE CHECKOUT TECHNICIAN-C Work Phone: Start: 03-24-2025 Source specific culture Ying Chelogar MISSILE AND MISSILE CHECKOUT TECHNICIAN-C Work Phone: Start: 03-24-2025 Hepatitis C antibody measurement Ying Chelogar MISSILE AND MISSILE CHECKOUT TECHNICIAN-C Work Phone: Comment on above: Reactive: Presumptiv e evidence of antibodies to HCV. Follow CDC recommendations for supplemental testing.Non-Reactive: Antibodies to HCV were not detected; does not exclude the possibility of exposure to HCVReactive Results are presumptive evidence of antibodies to HCV. Follow CDC recommendations for supplemental testing.Order confirmation testing: HCV Quant by PCR testing - HCVPCR #[id number] Non Reactive: < 0.8 Equivocal: >/= 0.8 to < 1.0 Reactive: >/= 1.0The CDC requires that a reactive/equivocal HCV antibody result be sent out for confirmation. HCV Quant by PCR testing. Start: 03-24-2025 Serologic test for h erpes simplex Ying Piña MISSILE AND MISSILE CHECKOUT TECHNICIAN-C Work Phone: Comment on above: Please note refere nce interval changeHSV-1 IgG testing performed using the [employer] HSV-1IgG assay. Start: 03-24-2025 Serologic test for syphilis Ying Piña MISSILE AND MISSILE CHECKOUT TECHNICIAN-C Work Phone: Start: 02-13-2025 UA DIP,URINE HCG (POC) [facility] Provider Start: 12-27-2024 Urnls dip stick/tabl et rgnt auto w/o microscopy Paradise Chambers DOCK ATTENDANT.DIVEMASTER Work Phone: Start: 12-08-2024 Urnls dip stick/tabl et rgnt auto w/o microscopy Darrel Greenfield DOCK ATTENDANT.DIVEMASTER Work Phone: Start: 11-02-2024 Gluc bld gluc mntr d ev cleared fda spec home use Paradise Chambers DOCK ATTENDANT.DIVEMASTER Work Phone: Start: 11-02-2024 UA DIP,URINE HCG (POC) Paradise Chambers DOCK ATTENDANT.DIVEMASTER Work Phone: Start: 11-02-2024 Urnls dip stick/tabl et rgnt auto w/o microscopy Paradise Chambers DOCK ATTENDANT.DIVEMASTER Work Phone: Start: 09-01-2024 UA DIP,URINE HCG (POC) Michelle Mcwilliams DOCK ATTENDANT.DIVEMASTER Work Phone: Start: 09-01-2024 Urnls dip stick/tabl et rgnt auto w/o microscopy Michelle Mcwilliams DOCK ATTENDANT.DIVEMASTER Work Phone: Start: 2024 Urnls dip stick/tabl et rgnt auto w/o microscopy Ping Helms PA-C Work Phone: Start: 07-02-2024 Gluc bld gluc mntr d ev cleared fda spec home use [facility] Provider Start: 07-02-2024 Urnls dip stick/tabl et rgnt auto w/o microscopy Darrel Greefnield DOCK ATTENDANT.DIVEMASTER Work Phone: Start: 06-23-2024 Urnls dip stick/tabl et rgnt auto w/o microscopy Michelle Mcwilliams DOCK ATTENDANT.DIVEMASTER Work Phone: Start: 04-09-2024 Hemoglobin A1c/Hemoglobin.total in Blood Ying Podlogar DOCK ATTENDANT.DIVEMASTER Work Phone: Start: 03-28-2024 STREP A MOLECULAR (POC) Darrel Greenfield DOCK ATTENDANT.DIVEMASTER Work Phone: Start: 06-29-2023 STREP A MOLECULAR (POC) Darrel Greenfield DOCK ATTENDANT.DIVEMASTER Work Phone: Start: 03-12-2023 Urnls dip stick/tabl et rgnt auto w/o microscopy Ying Cheloglinnette DOCK ATTENDANT.DIVEMASTER Work Phone: Start: 03-05-2023 Urnls dip stick/tabl et rgnt auto w/o microscopy Paradise Chambers DOCK ATTENDANT.DIVEMASTER Work Phone: Start: 11-15-2022 STREP A MOLECULAR (POC) Giorgi Groves DOCK ATTENDANT.DIVEMASTER Work Phone: Start: 09-19-2022 COVID WITH FLUA+B, ROUTINE Michelle Mcwilliams DOCK ATTENDANT.DIVEMASTER Work Phone: Start: 09-19-2022 STREP A MOLECULAR (POC) Michelle Mcwilliams DOCK ATTENDANT.DIVEMASTER Work Phone: Start: 07-23-2022 INFLUENZA VACCINE QUADRIVALENT 6 MO - 64 YRS IM Ying Cheloglinnette DOCK ATTENDANT.DIVEMASTER Work Phone: Start: 12-11-2021 Cytopathology proced ure, preparation of smear, genital source MISSILE AND MISSILE CHECKOUT TECHNICIAN-C Shalonda Kim Work Phone: Start: 03-15-2022 Investigation of transfusion reaction MISSILE AND MISSILE CHECKOUT TECHNICIAN-C Shalonda Tsailins Work Phone: Start: 07-30-2021 Radex spine lumbosac ral 2/3 views Giorgi Groves DOCK ATTENDANT.DIVEMASTER Work Phone: Start: 07-24-2021 Adult depression scr eening assessment Dmeario Garcia MD Work Phone: Cytopathology proced ure, preparation of smear, genital source MISSILE AND MISSILE CHECKOUT TECHNICIAN-C Shalondaadiel TsaiKim Work Phone: Investigation of transfusion reaction MISSILE AND MISSILE CHECKOUT TECHNICIAN-C Shalonda Kim Work Phone: Myringotomy and inse rtion of tympanic ventilation tube EMY PEREZ MD Comment on above: bilateral Structure of eye pro per (body structure) EMY PEREZ MD Comment on above: 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 Plan of Treatment Date Care Activity Detail Author Start: 03-02-2026 Annual PCP Team Body Shop Manager opal Disease Visit Annual PCP Team Chronic Disease Visit [facility] Start: 02-13-2026 GC (Gonorrhea) Scree tammy (18-24) GC (Gonorrhea) Screening (18-) [facility] Start: 02-13-2026 Screening for Chlamy juan trachomatis Chlamydia Screening (18-) [facility] Start: 12-08-2025 GC (Gonorrhea) Scree tammy (18-24) GC (Gonorrhea) Screening (18-24) [facility] Start: 12-08-2025 Screening for Chlamy juan trachomatis Chlamydia Screening (18-24) [facility] Start: 11-02-2025 GC (Gonorrhea) Scree tammy (18-24) GC (Gonorrhea) Screening (18-24) [facility] Start: 11-02-2025 Screening for Chlamy juan trachomatis Chlamydia Screening (18-24) [facility] Start: 07-02-2025 GC (Gonorrhea) Scree tammy (18-24) GC (Gonorrhea) Screening (18-24) [facility] Start: 07-02-2025 Screening for Chlamy juan trachomatis Chlamydia Screening (18-24) [facility] Start: 06-23-2025 GC (Gonorrhea) Scree tammy (18-24) GC (Gonorrhea) Screening (-) [facility] Start: 06-23-2025 Screening for Chlamy juan trachomatis Chlamydia Screening () [facility] Start: 05-30-2025 Influenza vaccination Influenz a Vaccine (Season Ended) [facility] Start: 04-09-2025 Annual PCP Team Body Shop Manager opal Disease Visit Annual PCP Team Chronic Disease Visit [facility] Start: 04-09-2025 Diabetic foot examination Diabetic F oot Exam [facility] Start: 03-24-2025 Hepatitis C antibody measurement [facility] Start: 03-24-2025 Serologic test for syphilis [facility] Start: 03-24-2025 [facility] Start: 03-02-2025 End: 03-02-2025 Patient encounter procedure 03/02/2025 9:00 AM EDT Office Visit [facility] [address] [place] [address] Ying Piña APRN.DIVEMASTER [address] [place] [address] Lump by my boob, it's hard and had smelly pus. [facility] Comment on above: Lump by my boob, it' s hard and had smelly pus. Start: 01-06-2025 Hepatitis B screening Urine Albumin:Creatinine Ratio [facility] Start: 01-06-2025 Hepatitis B surface antibody level LDL Cholesterol [facility] Start: 12-09-2024 Annual PCP Team Body Shop Manager opal Disease Visit Annual PCP Team Chronic Disease Visit [facility] Start: 10-10-2024 Hemoglobin A1c measurement HbA1C [facility] Start: 08-02-2024 End: 08-02-2024 Patient encounter procedure 08/02/2024 11:40 AM EST Office [place] [phone] requested call with [facility] after [facility] visit [facility] Comment on above: requested call with [facility] after [facility] visit Start: 07-12-2024 End: 07-12-2024 Patient encounter procedure 07/12/2024 9:40 AM EDT Office Visit [facility] [address] [place] [address] Ying Piña APRN.DIVEMASTER [address] [facility] [place] [address] 3 month follow up [facility] Comment on above: 3 month follow up Start: 06-11-2024 Hemoglobin A1c measurement HbA1C [facility] Start: 05-30-2024 Covid-19 Vaccine () Covid-19 Vaccine () [facility] Start: 05-30-2024 [facility]: 05-11-2024 Urine microalbumin profile DTa P,Tdap,Td Vaccine (7 - Td or Tdap) [facility] Start: 03-31-2024 ANNUAL PCP TEAM SPEED OPERATOR OPAL DISEASE VISIT ANNUAL PCP TEAM CHRONIC DISEASE VISIT [facility] Start: 03-12-2024 ANNUAL PCP TEAM SPEED OPERATOR OPAL DISEASE VISIT ANNUAL PCP TEAM CHRONIC DISEASE VISIT [facility] Start: 03-03-2024 ANNUAL PCP TEAM SPEED OPERATOR OPAL DISEASE VISIT ANNUAL PCP TEAM CHRONIC DISEASE VISIT [facility] Start: 02-29-2024 Hepatitis B screening URINE ALBUMIN:CREATININE RATIO [facility] Start: 02-29-2024 Hepatitis B surface antibody level LDL CHOLESTEROL [facility] Start: 02-04-2024 ANNUAL PCP TEAM SPEED OPERATOR OPAL DISEASE VISIT ANNUAL PCP TEAM CHRONIC DISEASE VISIT [facility] Start: 01-04-2024 CHLAMYDIA SCREENING (18-24) CHLAMYDIA SCREENING (18-24) [facility] Start: 01-04-2024 GC (GONORRHEA) SCREE TAMMY (18-24) GC (GONORRHEA) SCREENING (18-24) [facility] Start: 01-04-2024 Screening for Chlamy juan trachomatis Chlamydia Screening (18-24) [facility] Start: 09-29-2023 Behavioral Health Screening Behavioral Health Screening [facility] Start: 09-29-2023 Depression Assessment Depression Ass essment [facility] Start: 09-25-2023 ANNUAL PCP TEAM SPEED OPERATOR OPAL DISEASE VISIT ANNUAL PCP TEAM CHRONIC DISEASE VISIT [facility] Start: 08-30-2023 Hemoglobin A1c/Hemoglobin.total in Blood HBA1C [facility] Start: 07-23-2023 3 comp foot exam completed DIABETIC FOOT EXAM [facility] Start: 07-23-2023 ANNUAL PCP TEAM SPEED OPERATOR OPAL DISEASE VISIT ANNUAL PCP TEAM CHRONIC DISEASE VISIT [facility] Start: 07-23-2023 Diabetic foot examination Diabetic F oot Exam [facility] Start: 05-30-2023 Covid-19 Vaccine ( season) Covid-19 Vaccine ( season) [facility] Start: 05-30-2023 Influenza vaccination [facility] Start: 05-03-2023 ANNUAL PCP TEAM SPEED OPERATOR OPAL DISEASE VISIT ANNUAL PCP TEAM CHRONIC DISEASE VISIT [facility] Start: 04-30-2023 ANNUAL PCP TEAM SPEED OPERATOR OPAL DISEASE VISIT ANNUAL PCP TEAM CHRONIC DISEASE VISIT [facility] Start: 01-21-2023 ANNUAL PCP TEAM SPEED OPERATOR OPAL DISEASE VISIT ANNUAL PCP TEAM CHRONIC DISEASE VISIT [facility] Start: 01-10-2023 ANNUAL PCP TEAM SPEED OPERATOR OPAL DISEASE VISIT ANNUAL PCP TEAM CHRONIC DISEASE VISIT [facility] Start: 11-23-2022 CHLAMYDIA SCREENING (18-24) CHLAMYDIA SCREENING (18-24) [facility] Start: 11-23-2022 GC (GONORRHEA) SCREE TAMMY (18-24) GC (GONORRHEA) SCREENING (18-24) [facility] Start: 11-15-2022 End: 11-29-2022 SARS-CoV-2 (COVID-19) RNA [Presence] in Respiratory specimen by VIRGILIO with probe detection 2019 CORONAVIRUS Microbiology Routine Throat pain Mild intermittent asthma with acute exacerbation Expected: 11/15/2022, Expires: 11/29/2022 [facility] Work Phone: Comment on above: Expected: 11/15/2022 , Expires: 11/29/2022 Start: 11-01-2022 End: 01-01-2023 Hemoglobin A1c in Blood HGB A1C Lab Routine Type 2 diabetes mellitus without complication, without long-term current use of insulin (HCC) Expected: 11/01/2022, Expires: 01/01/2023 [facility] Work Phone: Comment on above: Expected: 11/01/2022 , Expires: 01/01/2023 Start: 10-31-2022 Hemoglobin A1c/Hemoglobin.total in Blood HBA1C [facility] Start: 10-23-2022 3 comp foot exam completed DIABETIC FOOT EXAM [facility] Start: 10-23-2022 Hepatitis B screening URINE ALBUMIN:CREATININE RATIO [facility] Start: 09-29-2022 DEPRESSION ASSESSMENT DEPRESSION ASS ESSMENT [facility] Start: 2022 PAP TESTING PAP TESTING [facility] Start: 2022 Screening for malign ant neoplasm of cervix [facility] Start: 07-24-2022 Adult depression scr eening assessment DEPRESSION SCREENING [facility] Start: 07-24-2022 COVID-19 VACCINE (#1) COVID-19 VACCI NE (#1) [facility] Comment on above: Postponed from 07/31 (Declined at this time) Postponed from 01/28 (Declined at this time) Start: 07-24-2022 COVID-19 VACCINE (1) COVID-19 VACCIN E (1) [facility] Comment on above: Postponed from 07/31 (Declined at this time) Start: 07-24-2022 Hepatitis B surface antibody level LDL CHOLESTEROL [facility] Start: 07-24-2022 HPV VACCINE (1 - 2-d ose series) HPV VACCINE (1 - 2-dose series) [facility] Comment on above: Postponed from 07/31 (Declined at this time) Start: 07-24-2022 Urine microalbumin profile DTA P,TDAP,TD (1 - Tdap) [facility] Comment on above: Postponed from 07/31 (Declined at this time) Start: 07-23-2022 Hemoglobin A1c/Hemoglobin.total in Blood HBA1C [facility] Start: 05-30-2022 Influenza vaccination [facility] Start: 04-23-2022 End: 06-23-2022 Hemoglobin A1c/Hemoglobin.total in Blood HGB A1C Lab Routine Type 2 diabetes mellitus without complication, without long-term current use of insulin (HCC) Expected: 04/23/2022, Expires: 06/23/2022 [facility] Work Phone: Comment on above: Expected: 04/23/2022 , Expires: 06/23/2022 Start: 04-22-2022 Hemoglobin A1c/Hemoglobin.total in Blood HBA1C [facility] Start: 01-21-2022 End: 03-23-2022 CBC panel - Blood by Automated count [facility] Work Phone: Comment on above: Expected: 01/21/2022 , Expires: 03/23/2022 Start: 01-21-2022 End: 03-23-2022 Comprehensive metabolic 2000 panel - Serum or Plasma [facility] Work Phone: Comment on above: Expected: 01/21/2022 , Expires: 03/23/2022 Start: 01-21-2022 End: 03-23-2022 Hemoglobin A1c/Hemoglobin.total in Blood [facility] Work Phone: Comment on above: Expected: 01/21/2022 , Expires: 03/23/2022 Start: 09-29-2021 DEPRESSION ASSESSMENT DEPRESSION ASS ESSMENT [facility] Start: 2020 HEPATITIS B (1 of 3 - Risk 3-dose series) HEPATITIS B (1 of 3 - Risk 3-dose series) [facility] Start: 2020 Pneumococcal vaccination Pneum ococcal Vaccine (1 of 2 - PCV) [facility] Start: 2020 Urine microalbumin profile [facility] Start: 2019 Anxiety Screening Anxiety Screening [facility] Start: 2019 Depression Screening Depression Scre ening [facility] Start: 2017 ONE PNEUMOVAX PRIOR TO AGE 65 ONE PNEUMOVAX PRIOR TO AGE 65 [facility] Start: 2015 PEDS TO ADULT TRANSI TION ANNUAL ASSESSMENT PEDS TO ADULT TRANSITION ANNUAL ASSESSMENT [facility] Start: 2013 PEDS TO ADULT TRANSI TION INITIAL DISCUSSION PEDS TO ADULT TRANSITION INITIAL DISCUSSION [facility] Start: 2012 HPV VACCINE (1 - 2-d ose series) HPV VACCINE (1 - 2-dose series) [facility] Start: 2011 Glaucoma screening Dilated Retinal E xam [facility] Start: 2011 Hepatitis C antibody , confirmatory test DILATED RETINAL EXAM [facility] Start: 2010 HPV VACCINE (1 - 2-d ose series) HPV VACCINE (1 - 2-dose series) [facility] Start: 2007 PNEUMOCOCCAL (1 - PCV) PNEUMOCOCCAL (1 - PCV) [facility] Start: 2007 Pneumococcal vaccination [facility] Start: 01-28-2002 COVID-19 VACCINE (#1) COVID-19 VACCI NE (#1) [facility] Start: 2001 HEPATITIS B (1 of 3 - 3-dose series) HEPATITIS B (1 of 3 - 3-dose series) [facility] Start: 2001 Hepatitis B Vaccine (1 of 3 - 3-dose series) Hepatitis B Vaccine (1 of 3 - 3-dose series) [facility] Bacteria identified in Urine by Culture URINE CULTURE Microbiology Routine Burning with urination Ordered: 03/05/2023 [facility] Work Phone: Comment on above: Ordered: 03/05/2023 Bacteria identified in Urine by Culture URINE CULTURE Microbiology Routine Acute cystitis with hematuria Ordered: 06/23/2024 [facility] Work Phone: Comment on above: Ordered: 06/23/2024 Bacteria identified in Urine by Culture URINE CULTURE Microbiology Routine Burning with urination Ordered: 07/02/2024 [facility] Work Phone: Comment on above: Ordered: 07/02/2024 Bacteria identified in Urine by Culture BACTERIAL CULTURE, URINE Microbiology Routine Dysuria Ordered: 11/02/2024 [facility] Work Phone: Comment on above: Ordered: 11/02/2024 Bacteria identified in Urine by Culture BACTERIAL CULTURE, URINE Microbiology Routine Urgency of urination Ordered: 12/08/2024 [facility] Work Phone: Comment on above: Ordered: 12/08/2024 Bacteria identified in Urine by Culture BACTERIAL CULTURE, URINE Microbiology Routine Burning with urination 12/27/2024 4:06 PM EDT [facility] Work Phone: Bacteria identified in Wound by Culture BACTERIAL CULTURE AND GRAM STAIN, ABSCESS AND WOUND (AEROBIC CULTURE) Microbiology Routine Abscess of right breast 03/02/2025 9:27 AM EDT [facility] Work Phone: BACTERIAL VAGINOSIS NAAT BACTERI AL VAGINOSIS NAAT Lab Routine Vaginal burning Ordered: 06/23/2024 [facility] Comment on above: Ordered: 06/23/2024 BACTERIAL VAGINOSIS NAAT BACTERI AL VAGINOSIS NAAT Lab Routine Vaginal discharge Ordered: 07/02/2024 [facility] Comment on above: Ordered: 07/02/2024 BACTERIAL VAGINOSIS NAAT BACTERI AL VAGINOSIS NAAT Lab Routine Vaginal discharge 11/02/2024 11:02 AM EST [facility] BACTERIAL VAGINOSIS NAAT BACTERI AL VAGINOSIS NAAT Lab Routine Vaginal discharge Ordered: 12/08/2024 [facility] Comment on above: Ordered: 12/08/2024 BACTERIAL VAGINOSIS NAAT BACTERI AL VAGINOSIS NAAT Lab Routine Acute vaginitis 12/27/2024 4:06 PM EDT [facility] BACTERIAL VAGINOSIS NAAT BACTERI AL VAGINOSIS NAAT Lab Routine Vaginal spotting Bleeding after intercourse Ordered: 02/13/2025 [facility] Comment on above: Ordered: 02/13/2025 ITZ/TRICHOMONAS NAAT ITZ /TRICHOMONAS NAAT Lab Routine Vaginal burning Ordered: 06/23/2024 [facility] Comment on above: Ordered: 06/23/2024 ITZ/TRICHOMONAS NAAT ITZ /TRICHOMONAS NAAT Lab Routine Vaginal discharge Ordered: 07/02/2024 [facility] Comment on above: Ordered: 07/02/2024 ITZ/TRICHOMONAS NAAT ITZ /TRICHOMONAS NAAT Lab Routine Vaginal discharge 11/02/2024 10:58 AM EST [facility] ITZ/TRICHOMONAS NAAT ITZ /TRICHOMONAS NAAT Lab Routine Vaginal discharge Ordered: 12/08/2024 [facility] Comment on above: Ordered: 12/08/2024 ITZ/TRICHOMONAS NAAT ITZ /TRICHOMONAS NAAT Lab Routine Acute vaginitis 12/27/2024 4:06 PM EDT [facility] ITZ/TRICHOMONAS NAAT ITZ /TRICHOMONAS NAAT Lab Routine Vaginal spotting Bleeding after intercourse Ordered: 02/13/2025 [facility] Comment on above: Ordered: 02/13/2025 Chlamydia deoxyribon ucleic acid detection [facility] Chlamydia trachomatis+Neisseria gonorrhoeae DNA [Presence] in Unspecified specimen by VIRGILIO with probe detection GONORRHEA/CHLAMYDIA NAAT Lab Routine Vaginal discharge Ordered: 06/23/2024 [facility] Comment on above: Ordered: 06/23/2024 Chlamydia trachomatis+Neisseria gonorrhoeae DNA [Presence] in Unspecified specimen by VIRGILIO with probe detection GONORRHEA/CHLAMYDIA NAAT Lab Routine Vaginal discharge Ordered: 07/02/2024 [facility] Comment on above: Ordered: 07/02/2024 Chlamydia trachomatis+Neisseria gonorrhoeae DNA [Presence] in Unspecified specimen by VIRGILIO with probe detection GONORRHEA/CHLAMYDIA NAAT Lab Routine Vaginal discharge Dysuria 11/02/2024 10:58 AM EST [facility] Chlamydia trachomatis+Neisseria gonorrhoeae DNA [Presence] in Unspecified specimen by VIRGILIO with probe detection GONORRHEA/CHLAMYDIA NAAT Lab Routine Vaginal discharge Ordered: 12/08/2024 [facility] Comment on above: Ordered: 12/08/2024 Chlamydia trachomatis+Neisseria gonorrhoeae DNA [Presence] in Unspecified specimen by VIRGILIO with probe detection GONORRHEA/CHLAMYDIA NAAT Lab Routine Vaginal spotting Bleeding after intercourse Ordered: 02/13/2025 [facility] Comment on above: Ordered: 02/13/2025 Hepatitis B virus linn rface Ag [Presence] in Serum [facility] Hepatitis C antibody measurement [facility] Work Phone: HIV 1+2 Ab+HIV1 p24 Ag [Presence] in Serum or Plasma by Immunoassay [facility] Work Phone: End: 01-10-2023 HOME SLEEP APNEA TEST (HSAT) HOME SLEEP APNEA TEST (HSAT) Procedures Routine Daytime somnolence 1 Occurrences starting 01/10/2022 until 01/10/2023 [facility] Work Phone: Comment on above: 1 Occurrences starti ng 01/10/2022 until 01/10/2023 Liquid based cervica l cytology screening [facility] Measurement of Human herpesvirus 2 antibody [facility] Serologic test for h erpes simplex [facility] Source specific culture [facility] Treponema sp Ab [Pre sence] in Serum [facility] Work Phone: UA DIP, URINE (POC) UA DIP, URIN E (POC) Lab Routine Dysuria Ordered: 03/12/2023 [facility] Work Phone: Comment on above: Ordered: 03/12/2023 Urine test visual color cmprsn meths HCG QUAL UR B/O Lab Routine Primary amenorrhea Ordered: 02/13/2025 [facility] Work Phone: Comment on above: Ordered: 02/13/2025 [facility] Immunizations Immunization Date Immunization Notes Care Provider Mir[facility] 07-23-2022 influenza, injectabl e, quadrivalent, contains preservative Ying Piña DOCK ATTENDANT.DIVEMASTER Work Phone: [facility] 07-23-2022 influenza virus vacc ine, unspecified formulation Hoda Cantu DOCK ATTENDANT.DIVEMASTER Work Phone: [facility] 07-07-2019 influenza virus vacc ine, unspecified formulation [facility] DOCK ATTENDANT-DIVEMASTER [facility] 07-07-2019 meningococcal B vacc ine, recombinant, OMV, adjuvanted DECEMBER [place] DOCK ATTENDANT-DIVEMASTER [facility] 07-07-2019 meningococcal polysaccharide (groups A, C, Y and W-135) diphtheria toxoid conjugate vaccine (MCV4P) [facility] DOCK ATTENDANT-DIVEMASTER [facility] 09-26-2016 influenza virus vacc ine, unspecified formulation [facility] DOCK ATTENDANT-DIVEMASTER [facility] 05-09-2016 Human Papillomavirus Quadval MORGAN [place] DOCK ATTENDANT-DIVEMASTER [facility] 05-11-2014 Human Papillomavirus Quadval MORGAN [place] DOCK ATTENDANT-DIVEMASTER [facility] 05-11-2014 meningococcal polysaccharide (groups A, C, Y and W-135) diphtheria toxoid conjugate vaccine (MCV4P) MORGAN DAN[place]Y DOCK ATTENDANT-DIVEMASTER [facility] 05-11-2014 tetanus toxoid, redu bryce diphtheria toxoid, and acellular pertussis vaccine, adsorbed DECEMBER [place] DOCK ATTENDANT-DIVEMASTER [facility] 10-19-2012 influenza virus vacc ine, unspecified formulation [facility] DOCK ATTENDANT-DIVEMASTER [facility] 04-11-2010 hepatitis A vaccine, pediatric dosage, unspecified formulation [facility] DOCK ATTENDANT-[facility] 05-01-2007 hepatitis A vaccine, adult dosage [facility] 05-01-2007 varicella virus vaccine APRI L [place] DOCK ATTENDANT-[facility] 10-24-2006 influenza virus vacc ine, unspecified formulation [facility] 05-05-2006 measles/mumps/rubell a virus vaccine [facility] 05-05-2006 poliovirus vaccine, inactivated [facility] 08-03-2004 influenza virus vacc ine, unspecified formulation [facility] 01-06-2003 poliovirus vaccine, inactivated [facility] 01-06-2003 varicella virus vaccine APRI Irene [place] [facility] 08-05-2002 haemophilus influenz ae type b conjugate and Hepatitis B vaccine [facility] 08-05-2002 measles/mumps/rubell a virus vaccine [facility] DOCK ATTENDANT-DIVEMASTER [facility] 02-02-2002 haemophilus influenz ae type b vaccine, PRP-T conjugate [facility] 2001 haemophilus influenz ae type b conjugate and Hepatitis B vaccine [facility] 2001 poliovirus vaccine, inactivated [facility] DOCK ATTENDANT-DIVEMASTER [facility] 2001 haemophilus influenz ae type b vaccine, PRP-T conjugate [facility] DOCK ATTENDANT-DIVEMASTER [facility] 2001 hepatitis B pediatri c vaccine [facility] DOCK ATTENDANT-DIVEMASTER [facility] 2001 poliovirus vaccine, inactivated [facility] DOCK ATTENDANT-DIVEMASTER [facility] Payers Date Payer Category Payer Unknown [id number] 2024 Unknown [id number] 2024 Self-pay [id number] 2023 Private Health Insurance [id number] .[id number] 2023 Unknown [id number]. 1.13.159.2.7 .[id number] 2021 Unknown [id number] 2016 Medicaid [place] [id number] 2016-Present [phone] [place] [address] Medicaid [id number] .[id number] 2016 Medicaid [id number] [id number] .[id number] 2013 Unknown [id number] 2001 Unknown [id number] 2.16.840.1.079257.3.579.2.6 27 2001 Unknown [id number] 2.16.840.1.551122.3.579.2.6 27 2001 Unknown [id number] 2.16.840.1.757137.3.579.2.6 27 2001 Unknown [id number] 2.16.840.1.202266.3.579.2.6 27 2001 Unknown [id number] 2.16.840.1.375460.3.579.2.6 27 2001 Unknown [id number] 2.16.840.1.615933.3.579.2.6 27 2001 Unknown [id number] 2.16.840.1.034079.3.579.2.6 27 2001 Unknown [id number] 2.16.840.1.072343.3.579.2.6 27 2001 Unknown [id number] 2.16.840.1.257327.3.579.2.6 27 2001 Unknown [id number] 2.16.840.1.430808.3.579.2.6 27 2001 Unknown [id number] 2.16.840.1.444131.3.579.2.6 27 2001 Unknown [id number] 2.16.840.1.611939.3.579.2.6 27 Unknown [id number] Unknown [id number] Unknown [id number] 2.16.840.1.058090.3.579.2.4 62 Unknown [id number] 2.16.840.1.651464.3.579.2.4 62 Unknown [id number] 2.16.840.1.532678.3.579.2.4 62 Unknown [id number] 2.16.840.1.426600.3.579.2.4 62 Unknown [id number] 2.16.840.1.854555.3.579.2.4 62 Unknown [id number] 2.16.840.1.242601.3.579.2.4 62 Unknown [id number] 2.16.840.1.764894.3.579.2.4 62 Social History Date Type Detail Facility Start: 11-29-2019 End: 05-27-2024 Never smoked tobacco (finding) [facility] Sex Assigned At [facility] Start: 12-11-2021 End: 11-15-2022 Tobacco smoking status IDIS Unknown if ever smoked [facility] Start: 2001 Sex Assigned At Female [facility] Start: 11-08-2017 End: 07-23-2022 Tobacco use and exposure Smokeless tobacco non-user [facility] Start: 01-10-2022 End: 03-02-2025 Alcohol intake Ex-drinker (finding) [facility] Start: 2001 Sex Assigned At Not on file [facility] Start: 06-24-2021 End: 08-07-2022 Exposure to SARS-CoV-2 (event) Not sure [facility] Work Phone: Start: 03-03-2023 End: 06-16-2023 History of Social function [facility] Start: 03-03-2023 End: 06-16-2023 Tobacco use panel [facility] Adult Depression Screening Assessment 0 [facility] Start: 08-20-2006 Sex Female (finding) [facility] Start: 02-23-2025 Gender identity Identifies as female gender (finding) [facility] Medical Equipment Procedure Code Equipment Code Equipment Origin al Text Equipment Identifier Dates Test blood sugar(s) one times daily. Dx: Type 2 DM - Controlled E11.9 Insulin: No [id number], [id number], [id number] Start: 08-17-2021 End: 03-30-2024 Comment on above: Test blood sugar(s) one times daily. Dx: Type 2 DM - Controlled E11.9 Insulin: No Functional Status Date Assessment Result Facility 11-06-2024 Functional Status Door open, Room check performed [facility] 11-05-2024 Functional Status Sensory Deficits None A [facility] 06-17-2023 Functional Status Repositions self [facility] 09-12-2022 Functional Status Up ad johanna [facility] 09-12-2022 Functional Status [facility] 07-27-2022 Functional Status Assistive Device None A [facility] 06-19-2022 Functional Status Standard Safet y ID band on, Call device within reach, Bed in low position, Wheels locked, Upper/Half-Length side-rails up, Bedside Cart Locked, Safety level maintained [facility] Mental Status Date Assessment Result Facility 11-06-2024 Mental Status Oriented x 4 [facility] 11-05-2024 Mental Status [facility] 11-05-2024 Mental Status [facility] 06-17-2023 Mental Status Oriented x 4 [facility] 09-12-2022 Mental Status Orientation Oriented x 4 [facility] 09-12-2022 Mental Status [facility] 07-27-2022 Mental Status Orientation Oriented x 4 [facility] Clinical Notes 07-24-2021 to 03-24-2025 Note Date & Type Note Facility 03-24-2025 Evaluation note Diagnosis Onset Date Resolution 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 Voices understanding to all below. Amy Rendon LPN [facility]06-24-2025 Miscellaneous Notes* Telephone Encounter - Amy Rendon LPN - 03/22/2025 8:11 AM EDT Telephone call placed to patient. Voices understanding to all below. Amy Rendon LPN * Telephone Encounter - Ying Piña APRN.CNP - 03/22/2025 7:13 AM EDT She has not had labs in a year. She has diabetes and her yeast infection could be caused by blood sugars being out of control therefore I need to assess her before I order medications. She needs to find out who takes her insurance and schedule appointment. She can get over the counter monistat thatcan help with yeast infection. Ying Piña APRN.CNP * Telephone Encounter - Hoda Preston RN - 03/21/2025 6:45 PM EDT Pt called and is notified of providers message and instructions. Pt states her insurance doesn't accept us any more. She states she never came back in because they wouldn't let her schedule to come back in. She states she hasn't had any luck yet trying to find another provider in the area. She was hoping provider might call in medication for her. Hoda Preston, RN * Telephone Encounter - Ying Piña APRN.CNP - 03/21/2025 7:06 AM EDT Patient is overdue for her appointment and never followed up for her breast abscess. She needs to come in for an appointment. Ying Piña APRN.CNP * Telephone Encounter - Julia Hawk RN - 03/19/2025 10:09 AM EDT Patient calls to request an order for diflucan for yeast infection. Previously ordered by [facility]. Patient asking if provider would send in prescription as when she goes to [facility] it costs a lot of money. Patient aware provider is out until Friday and that prescription might not be sent as it would be up to provider. Please review and advise, Julia Hawk RN [facility] Telephone encounter Note * Telephone Encounter - Ying Piña APRN.[facility]CO - 03/22/2025 7:13 AM EDT She has not had labs in a year. She has diabetes and her yeast infection could be caused by blood sugars being out of control therefore I need to assess her before I order medications. She needs to find out who takes her insurance and schedule appointment. She can get over the counter monistat thatcan help with yeast infection. Ying Piña APRN.CUCO [facility] Telephone encounter Note* Telephone Encounter - Hoda Preston RN - 03/21/2025 6:45 PM EDT Pt called and is notified of providers message and instructions. Pt states her insurance doesn't accept us any more. She states she never came back in because they wouldn't let her schedule to come back in. She states she hasn't had any luck yet trying to find another provider in the area. She was hoping provider might call in medication for her. Hoda Preston RN [facility]06-23-2025 Telephone encounter Note* Telephone Encounter - Ying Piña APRN.CNP - 03/21/2025 7:06 AM EDT Patient is overdue for her appointment and never followed up for her breast abscess. She needs to come in for an appointment. Ying Piña APRN.CNP [facility] Telephone encounter Note* Telephone Encounter - Julia Hawk RN - 03/19/2025 10:09 AM EDT Patient calls to request an order for diflucan for yeast infection. Previously ordered by [facility]. Patient asking if provider would send in prescription as when she goes to [facility] it costs a lot of money. Patient aware provider is out until Friday and that prescription might not be sent as it would be up to provider. Please review and advise, Julia Hawk RN [facility]06-04-2025 Instructions* Patient Instructions* Ying Piña APRN.CNP - 03/02/2025 9:25 AM EDT - Continue taking your doxycycline: finish the remaining days on your current prescription and thentake an additional five days as prescribed (prescription sent to your pharmacy). - A sample of the drainage was sent for culture; we will review the results and adjust your antibiotic if needed. - Apply a warm compress to the area twice daily; gently massage to help any drainage, washing your hands before and after each time. - Watch for signs of worsening infection--if the area becomes larger, more tender, red, or hot, go to the emergency department. - Your metformin prescription has been sent to the pharmacy; start taking it as directed. - A follow-up appointment is scheduled for Friday to recheck your abscess, review culture results, and complete your routine physical and lab work; our software engineer kernel will contact you with the exact time. documented in this encounterCommunity [facility]06-[facility]-2025 NoteHNO ID: [id number] Author: YING PIÑA APRN.[facility] Service: ? Author Type: Nurse Practitioner Type: Progress Notes Filed: 03/02/2025 10:08 Note Text: 03/02/2025 Patient presents with: Derm Problem: Abscess to right breast that had been drained last week by the [facility]. It was getting better but now getting worse. Recording using [employer] software for draft documentation of the visit was discussed with the patient/authorized wire rope sales representative; all questions welcomed and answered. Patient/authorized wire rope sales representative agreed to proceed SUBJECTIVE: This is a 24 year old that is here today for Above Complaints.. Right Breast Abscess: - Seen in the ER last week for a right breast abscess; underwent drainage. - Started on doxycycline for 10 days; currently one week into treatment. - Initially improved post-drainage, but abscess has returned to original size. - Reports burning pain; denies current drainage, fevers, or chills. - Previous similar episodes described as little pimples that resolved spontaneously. - Denies culture taken during ER visit; ultrasound performed prior to drainage. Diabetes Mellitus: - Out of metformin for a while. PAST MEDICAL HISTORY Diagnosis Date Mild intermittent asthma without complication (HCC) PCOS (polycystic ovarian syndrome) ALLERGIES Amoxicillin-Pot Clavulanate and Vancomycin MEDICATIONS Current Outpatient Medications Medication Sig acyclovir (ZOVIRAX) 400 mg tablet Take 400 mg by mouth three times a day. doxycycline hyclate (VIBRAMYCIN) 100 mg capsule metFORMIN ER (GLUCOPHAGE XR) 500 mg 24 hr tablet Take 1 tablet by mouth daily with breakfast. doxycycline hyclate (VIBRAMYCIN) 100 mg capsule Take 1 capsule by mouth two times a day for 5 days. albuterol HFA (PROVENTIL HFA, VENTOLIN HFA) 90 mcg/actuation inhaler Inhale 2 Puffs as instructed every 4 hours as needed. blood sugar diagnostic (BLOOD GLUCOSE TEST) test strip Test blood sugar(s) one times daily. Dx: Type 2 DM - Controlled E11.9 Insulin: No albuterol (PROVENTIL) 2.5 mg /3 mL (0.083 %) nebulizer solution Use 3 mL via nebulizer every 4 hours as needed for wheezing/shortness of breath. cetirizine (ZYRTEC) 10 mg tablet Take 1 tablet by mouth once daily. Lancets lancets Test blood sugar(s) one times daily. Dx: Type 2 DM - Controlled E11.9 Insulin: No No current facility-administered medications for this visit. Medications and allergies reviewed by this provider. SOCIAL HISTORY Social History Tobacco Use Smoking status: Never Smokeless tobacco: Never Vaping Use Vaping status: Never Used Substance Use Topics Alcohol use: Not Currently Drug use: Never REVIEW OF SYSTEMS All other reviewed and negative other than HPI. OBJECTIVE: BP 132/98 Pulse 97 Temp 36.7 ?C (98.1 ?F) Resp 18 Wt 112.7 kg (248 lb 6.4 oz) LMP 10/13/2024 (Approximate) SpO2 98% BMI 41.34 kg/m? . Vital signs reviewed by this provider. GENERAL: NAD, alert and oriented. BREASTS: Right medial breast with draining abscess, no significant erythema or increased warmth noted around the area. No TTP Dilated Retinal Exam Never done Depression Screening Never done Anxiety Screening Never done Pneumococcal Vaccine(1 of 2 - PCV) due on 2020 Cervical Cancer Screening Never done DTaP,Tdap,Td Vaccine(7 - Td or Tdap) due on 05/11/2024 Covid-19 Vaccine( season) Never done HbA1C due on 10/10/2024 Urine Albumin:Creatinine Ratio due on 01/06/2025 LDL Cholesterol due on 01/06/2025 Diabetic Foot Exam due on 04/09/2025 Influenza Vaccine(Season Ended) due on 05/30/2025 GC (Gonorrhea) Screening (18-24) due on 02/13/2026 Chlamydia Screening (18-24) due on 02/13/2026 Annual PCP Team Chronic Disease Visit due on 03/02/2026 Hepatitis B Vaccine Completed HPV Vaccine Completed Hepatitis C Screening Completed HIV Screening Completed Meningococcal B Vaccine Discontinued 1. Abscess of right breast (N61.1) - Abscess was previously drained in the ER; currently on doxycycline for 10 days, with 3 days remaining. - Noted burning sensation and pain; no fever or chills reported. - Performed culture of the drainage to identify any specific infection. - Extended doxycycline treatment for an additional 5 days. - Advised warm compresses twice daily to the affected area. - Instructed to monitor for increased redness, heat, or size of the abscess and to return to the ER if these symptoms occur. - Follow-up scheduled for Friday to re-evaluate the abscess and review culture results. 2. Type 2 diabetes mellitus without complication, without long-term current use of insulin (HCC) (E11.9) - Patient has been out of metformin for an extended period. - Prescribed metformin; sent prescription to [facility] in [place]. - Scheduled for a follow-up appointment on Friday for a physical examination and to address diabetes management. Ying Piña APRN.[facility] Prescription instructions review (more content not included)...[facility]06-04-2025 History of Present illness Narrative* Ying Piña APRN.[facility] - 03/02/2025 9:12 AM EDT 03/02/2025 Patient presents with: Derm Problem: Abscess to right breast that had been drained last week by the [facility]. It was getting better but now getting worse. Recording using [employer] software for draft documentation of the visit was discussed with the patient/authorized wire rope sales representative; all questions welcomed and answered. Patient/authorized wire rope sales representative agreed to proceed SUBJECTIVE: This is a 24 year old that is here today for Above Complaints.. Right Breast Abscess: - Seen in the ER last week for a right breast abscess; underwent drainage. - Started on doxycycline for 10 days; currently one week into treatment. - Initially improved post-drainage, but abscess has returned to original size. - Reports burning pain; denies current drainage, fevers, or chills. - Previous similar episodes described as little pimples that resolved spontaneously. - Denies culture taken during ER visit; ultrasound performed prior to drainage. Diabetes Mellitus: - Out of metformin for a while. PAST MEDICAL HISTORY Diagnosis Date Mild intermittent asthma without complication (HCC) PCOS (polycystic ovarian syndrome) ALLERGIES Amoxicillin-Pot Clavulanate and Vancomycin MEDICATIONS Current Outpatient Medications Medication Sig acyclovir (ZOVIRAX) 400 mg tablet Take 400 mg by mouth three times a day. doxycycline hyclate (VIBRAMYCIN) 100 mg capsule metFORMIN ER (GLUCOPHAGE XR) 500 mg 24 hr tablet Take 1 tablet by mouth daily with breakfast. doxycycline hyclate (VIBRAMYCIN) 100 mg capsule Take 1 capsule by mouth two times a day for 5 days. albuterol HFA (PROVENTIL HFA, VENTOLIN HFA) 90 mcg/actuation inhaler Inhale 2 Puffs as instructed every 4 hours as needed. blood sugar diagnostic (BLOOD GLUCOSE TEST) test strip Test blood sugar(s) one times daily. Dx: Type 2 DM - Controlled E11.9 Insulin: No albuterol (PROVENTIL) 2.5 mg /3 mL (0.083 %) nebulizer solution Use 3 mL via nebulizer every 4 hours as needed for wheezing/shortness of breath. cetirizine (ZYRTEC) 10 mg tablet Take 1 tablet by mouth once daily. Lancets lancets Test blood sugar(s) one times daily. Dx: Type 2 DM - Controlled E11.9 Insulin: No No current facility-administered medications for this visit. Medications and allergies reviewed by this provider. SOCIAL HISTORY Social History Tobacco Use Smoking status: Never Smokeless tobacco: Never Vaping Use Vaping status: Never Used Substance Use Topics Alcohol use: Not Currently Drug use: Never REVIEW OF SYSTEMS All other reviewed and negative other than HPI. OBJECTIVE: BP 132/98 Pulse 97 Temp 36.7 C (98.1 F) Resp 18 Wt 112.7 kg (248 lb 6.4 oz) LMP 10/13/2024 (Approximate) SpO2 98% BMI 41.34 kg/m . Vital signs reviewed by this provider. GENERAL: NAD, alert and oriented. BREASTS: Right medial breast with draining abscess, no significant erythema or increased warmth noted around the area. No TTP Dilated Retinal Exam Never done Depression Screening Never done Anxiety Screening Never done Pneumococcal Vaccine(1 of 2 - PCV) due on 2020 Cervical Cancer Screening Never done DTaP,Tdap,Td Vaccine(7 - Td or Tdap) due on 05/11/2024 Covid-19 Vaccine() Never done HbA1C due on 10/10/2024 Urine Albumin:Creatinine Ratio due on 01/06/2025 LDL Cholesterol due on 01/06/2025 Diabetic Foot Exam due on 04/09/2025 Influenza Vaccine(Season Ended) due on 05/30/2025 GC (Gonorrhea) Screening (18-24) due on 02/13/2026 Chlamydia Screening (18-24) due on 02/13/2026 Annual PCP Team Chronic Disease Visit due on 03/02/2026 Hepatitis B Vaccine Completed HPV Vaccine Completed Hepatitis C Screening Completed HIV Screening Completed Meningococcal B Vaccine Discontinued 1. Abscess of right breast (N61.1) - Abscess was previously drained in the ER; currently on doxycycline for 10 days, with 3 days remaining. - Noted burning sensation and pain; no fever or chills reported. - Performed culture of the drainage to identify any specific infection. - Extended doxycycline treatment for an additional 5 days. - Advised warm compresses twice daily to the affected area. - Instructed to monitor for increased redness, heat, or size of the abscess and to return to the ERif these symptoms occur. - Follow-up scheduled for Friday to re-evaluate the abscess and review culture results. 2. Type 2 diabetes mellitus without complication, without long-term current use of insulin (HCC) (E11.9) - Patient has been out of metformin for an extended period. - Prescribed metformin; sent prescription to [facility] in [place]. - Scheduled for a follow-up appointment on Friday for a physical examination and to address diabetes management. Ying Piña APRN.[facility] Prescription instructions reviewed with patient as applicable. Patient advised if symptoms do not improve or if symptoms worsen sooner, to contact their primary care physician. Potential red flag symptoms discussed with the patient. Reviewed appropriate action plan to take if red flag symptoms occur. Patient agreeable to treatment plan. Medical Decision Making: Problems: Low: Stable chronic illness Moderate: New problem with uncertain prognosis Data: Unique test(s) ordered: 1 Risk: Moderate: Moderate risk from testing/treatment Medical Decision Making Level: 4 - Moderate documented [facility] Hospital Discharge instructions Patient Education 02/24/2025 12:01:47 Abscess, Incision And Drainage Abscess (Incision & Drainage) An abscess is sometimes called a boil. It happens when bacteria get trapped under the skin and start to grow. Pus forms inside the abscess as the body responds to the bacteria. An abscess can happen with an insect bite, ingrown hair, blocked oil gland, pimple, cyst, or puncture wound. Your healthcare provider has drained the pus from your abscess. If the abscess pocket was large, your healthcare provider may have put in gauze packing. Your provider will need to remove it on your next visit. He or she may also replace it at that time. You may not need antibiotics to treat a simple abscess, unless the infection is spreading into the skin around the wound (cellulitis). The wound will take about 1 to 2 weeks to heal, depending on the size of the abscess. Healthy tissue will grow from the bottom and sides of the opening until it seals over. Home care These tips can help your wound heal: The wound may drain for the first 2 days. Cover the wound with a clean dry dressing. Change the dressing if it becomes soaked with blood or pus. If a gauze packing was placed inside the abscess pocket, you may be told to remove it yourself. Youmay do this in the shower. Once the packing is removed, you should wash the area in the shower, or clean the area as directed by your provider. Continue to do this until the skin opening has closed. Make sure you wash your hands after changing the packing or cleaning the wound. If you were prescribed antibiotics, take them as directed until they are all gone. You may use acetaminophen or ibuprofen to control pain, unless another pain medicine was prescribed. If you have liver disease or ever had a stomach ulcer, talk with your doctor before using these medicines. Follow-up care Follow up with your healthcare provider, or as advised. If a gauze packing was put in your wound, it should be removed in 1 to 2 days. Check your wound every day for any signs that the infection is getting worse. The signs are listed below. When to seek medical advice Call your healthcare provider right away if any of these occur: Increasing redness or swelling Red streaks in the skin leading away from the wound Increasing local pain or swelling Continued pus draining from the wound 2 days after treatment Fever of 100.4 F (38 C) or higher, or as directed by your healthcare provider Boil returns when you are at home [id number] [employer]. [address] [place] [address]. All rights reserved. This information is not intended as a substitute for professional medical care. Always follow yourhealthcare professional's instructions. Follow Up Care 02/24/2025 10:24:06 With:YING PIÑA APRN.[facility] Address: [address] [place] [phone] When:2-4 days [facility] 05-29-2025 Note Discharge Instructions Thank you for allowing Michelle to assist you with your healthcare needs. The following is importantdischarge information regarding your hospital visit. Diagnosis from Today's Visit Abscess of breast What to Do Next Instructions from Your Care Team Your ultrasound showed a abscess of the breast. Attempt was made to drain this. You had an incisionin the abscess but there was minimal drainage. You should perform warm compresses to this area twice a day. Otherwise keep it covered with gauze. You should take the antibiotics. You will need a follow-up ultrasound arranged by your family doctor to document that it has improved. If you develop fever, increased redness, increased pain or anything concerning please be evaluated sooner. No qualifying data available. Post Acute Orders No qualifying data available. You Need to Schedule the Following Appointments Follow Up with PODLOGARYING APRN.[facility] When:Within 2-4 days Where:[address] [place] [address]- [phone] Allergies amoxicillin rash vancomycin Medications Please ask your primary doctor or pharmacist before taking any other medication not listed, including over the counter drugs, herbal medications, vitamins and or supplements as they may interact withyour home medications. What How Much When Instructions Last Dose New doxycycline (doxycycline hyclate 100 mg oral capsule) 1 cap by mouth Two (2) times a day Duration: 10 Days Printed Prescription Unchanged albuterol (albuterol 90 mcg/ inh inhalation powder) 1 puff(s) by inhalation Every 4 hours as needed for as needed Unchanged metFORMIN (MetFORMIN (Eqv-Glucophage XR) 500 mg oral tablet, EXTENDED RELEASE) 1 tab(s) by mouth Once a day Unchanged valACYclovir (Valtrex 1 g oral tablet) 1 tab(s) by mouth Every 24 hours Duration: 7 Days Please take this list to your next doctor s visit. Bring all medications you take, including over the counter medications, herbals and other supplements with you to your doctor s visit. Patients and families are reminded to discard old lists and to update any records with all medication providers or retail pharmacies. Medication Leaflets doxycycline (oral/injection) (DOX adiel lopez) Acticlate, Adoxa, Alodox, Avidoxy, Doryx, Lymepak, Mondoxyne NL, Monodox, Morgidox, Okebo, Oracea, Targadox What is the most important information I should know about doxycycline? You should not take this medicine if you are allergic to any tetracycline antibiotic. Children younger than 8 years old should use doxycycline only in cases of severe or life-threatening conditions. This medicine can affect tooth development and growth and cause permanent yellowing orgraying of the teeth in children. Using doxycycline during could harm the unborn baby or cause permanent tooth discoloration later in the baby's life. What is doxycycline? Doxycycline is used to treat many different bacterial infections, such as acne, urinary tract infections, intestinal infections, respiratory infections, eye infections, certain sexually transmitted infections, periodontitis (gum disease), and others. Doxycycline is also used to treat blemishes, bumps, and acne-like lesions caused by rosacea. Doxycycline will not treat facial redness caused by rosacea. Some forms of doxycycline are used to prevent malaria, to treat anthrax, or to treat infections caused by mites, ticks, or lice. Doxycycline may also be used for purposes not listed in this medication guide. What should I discuss with my healthcare provider before using doxycycline? You should not use this medicine if you are allergic to doxycycline or other tetracycline antibiotics such as demeclocycline, minocycline, tetracycline, or tigecycline. Tell your doctor if you have or have ever had: increased pressure inside your skull; diarrhea or diarrhea that is watery; stomach surgery; vision problems; vagina infection; take iron supplements, multivitamins, calcium supplements, laxatives, medicine containing bismuth subsalicylate, or antacids containing aluminum, calcium, or magnesium; use a proton pump inhibitor (such as omeprazole, esomeprazole, Nexium, Prevacid, Prilosec, or Protonix); if you also take isotretinoin or acitretin, seizure medicine, or a blood thinner such as warfarin (Coumadin); or liver or kidney disease. If you are using doxycycline to treat gonorrhea, your doctor may test you to make sure you do not also have syphilis, another sexually transmitted disease. Taking this medicine during may affect tooth and bone development in the unborn baby. Taking doxycycline during the last half of can cause permanent tooth discoloration later in the baby's life. Tell your doctor if you are or plan to become . Doxycycline can make control pills less effective. Ask your doctor about other control options such as an injection, implant, skin patch, vaginal ring, condom, diaphragm, cervical cap, orcontraceptive sponge. Doxycycline can pass into breast milk and may affect bone and tooth development in a nursing infant. Do not breastfeed while you are taking doxycycline, and for at least 5 days after your last dose. Doxycycline can affect tooth development and growth and cause permanent yellowing or graying of theteeth in children younger than 8 years old. Children should use doxycycline only in cases of severeor life-threatening conditions such as anthrax or [place] spotted fever. The benefit of treating a serious condition may outweigh any risks to the child's tooth development. How should I use doxycycline? Follow all directions on your prescription label and read all medication guides or instruction sheets. Use the medicine exactly as directed. Your doctor will perform tests to make sure doxycycline is the right treatment for you. Take doxycycline with a full glass of water. Drink plenty of liquids while you are taking doxycycline. Most brand forms of doxycyline may be taken with food or milk if the medicine upsets your stomach. Different brand forms of doxycycline may have different instructions about taking them with or without food. Take Oracea on an empty stomach, at least 1 hour before or 2 hours after a meal. Swallow a delayed-release capsule or tablet whole. Do not crush, chew, break, or open it. Measure liquid medicine with the supplied measuring device (not a kitchen spoon). If you take doxycycline to prevent malaria: Start taking the medicine 1 or 2 days before entering an area where malaria is common. Continue taking the medicine every day during your stay and for at least 4 weeks after you leave the area. Doxycycline may be given as an infusion into a vein. A healthcare provider will give you this injection. Keep using this medicine even if your symptoms quickly improve. Skipping doses could make your infection resistant to medication. Doxycycline will not treat a viral infection (flu or a common cold). Store at room temperature away from moisture, heat, and light. What happens if I miss a dose? Call your doctor for instructions if you miss a dose or if you miss an appointment for your doxycycline injection. What happens if I overdose? Seek emergency medical attention or call the Poison Help line at . What should I avoid while using doxycycline? Do not take iron supplements, multivitamins, calcium supplements, laxatives, bismuth subsalicylate,or antacids containing aluminum, calcium, or magnesium within 2 hours before or after using doxycycline. Avoid taking any other antibiotics with doxycycline unless your doctor has told you to. Doxycycline could make you sunburn more easily. Avoid sunlight or tanning beds. Wear protective clothing and use sunscreen (SPF 30 or higher) when you are outdoors. Antibiotic medicines can cause diarrhea, which may be a sign of a new infection. If you have diarrhea that is watery or bloody, call your doctor. Do not use anti-diarrhea medicine unless your doctor tells you to. What are the possible side effects of doxycycline? Get emergency medical help if you have signs of an allergic reaction (hives, difficult breathing, swelling in your face or throat) or a severe skin reaction (fever, sore throat, burning eyes, skin pain, red or purple skin rash with blistering and peeling). Seek medical treatment if you have a serious drug reaction that can affect many parts of your body.Symptoms may include: skin rash, fever, swollen glands, flu- like symptoms, muscle aches, severe weakness, unusual bruising, or yellowing of your skin or eyes. This reaction may occur several weeks after you began using doxycycline. Call your doctor at once if you have: fever, chills, rapid breathing, headaches, rapid heart rate, skin lesion, low blood pressure; severe stomach pain, diarrhea that is watery or bloody; throat irritation, trouble swallowing; chest pain, irregular heart rhythm, feeling short of breath; little or no urination; low white blood cell counts--fever, chills, swollen glands, body aches, weakness, pale skin, easy bruising or bleeding; increased pressure inside the skull--severe headaches, ringing in your ears, dizziness, nausea, vision problems, pain behind your eyes; or signs of liver or pancreas problems--loss of appetite, upper stomach pain (that may spread to your back), tiredness, nausea or vomiting, fast heart rate, dark urine, jaundice (yellowing of the skin or eyes). Common side effects may include: headache, sinus infection, pain in the nose and throat; reversible discoloration of the surface of adult teeth; flu-like symptoms; high blood pressure; nausea, vomiting, upset stomach, loss of appetite; stomach pain or bloating; change in certain blood tests; diarrhea; skin rash or itching; darkened skin color; or vaginal itching or discharge. This is not a complete list of side effects and others may occur. Call your doctor for medical advice about side effects. You may report side effects to FDA at 0-699-PGN-5286. What other drugs will affect doxycycline? Sometimes it is not safe to use certain medicines at the same time. Some drugs can affect your blood levels of other drugs you use, which may increase side effects or make the medicines less effective. Other drugs may affect doxycycline, including prescription and lmma-wyj-coradgm medicines, vitamins, and herbal products. Tell your doctor about all other medicines you use. Where can I get more information? Your doctor or pharmacist can provide more information about doxycycline. Remember, keep this and all other medicines out of the reach of children, never share your medicines with others, and use this medication only for the indication prescribed. Every effort has been made to ensure that the information provided by [employer]. ('[employer]') is accurate, up-to-date, and complete, but no guarantee is made to that effect. Drug information contained herein may be time sensitive. [employer] information has been compiled for use by healthcare practitioners and consumers in the [place] and therefore [employer] does not warrant that uses outside of the [place] are appropriate, unless specifically indicated otherwise. [employer] drug information does not endorse drugs, diagnose patients or recommend therapy. [employer] drug information isan informational resource designed to assist licensed healthcare practitioners in caring for their p atients and/or to serve consumers viewing this service as a supplement to, and not a substitute for, the expertise, skill, knowledge and judgment of healthcare practitioners. The absence of a warningfor a given drug or drug combination in no way should be construed to indicate that the drug or drug combination is safe, effective or appropriate for any given patient. [employer] does not assume any responsibility for any aspect of healthcare administered with the aid of information [employer] provides. The information contained herein is not intended to cover all possible uses, directions, precautions, warnings, drug interactions, allergic reactions, or adverse effects. If you have questions about the drugs you are taking, check with your doctor, nurse or pharmacist. Copyright 3864-4777 [employer]. Version: 25.03. Revision Date: 01/11/2025. Education Materials Abscess (Incision & Drainage) An abscess is sometimes called a boil. It happens when bacteria get trapped under the skin and start to grow. Pus forms inside the abscess as the body responds to the bacteria. An abscess can happen with an insect bite, ingrown hair, blocked oil gland, pimple, cyst, or puncture wound. Your healthcare provider has drained the pus from your abscess. If the abscess pocket was large, your healthcare provider may have put in gauze packing. Your provider will need to remove it on your next visit. He or she may also replace it at that time. You may not need antibiotics to treat a simple abscess, unless the infection is spreading into the skin around the wound (cellulitis). The wound will take about 1 to 2 weeks to heal, depending on the size of the abscess. Healthy tissue will grow from the bottom and sides of the opening until it seals over. Home care These tips can help your wound heal: The wound may drain for the first 2 days. Cover the wound with a clean dry dressing. Change the dressing if it becomes soaked with blood or pus. If a gauze packing was placed inside the abscess pocket, you may be told to remove it yourself. Youmay do this in the shower. Once the packing is removed, you should wash the area in the shower, or clean the area as directed by your provider. Continue to do this until the skin opening has closed. Make sure you wash your hands after changing the packing or cleaning the wound. If you were prescribed antibiotics, take them as directed until they are all gone. You may use acetaminophen or ibuprofen to control pain, unless another pain medicine was prescribed. If you have liver disease or ever had a stomach ulcer, talk with your doctor before using these medicines. Follow-up care Follow up with your healthcare provider, or as advised. If a gauze packing was put in your wound, it should be removed in 1 to 2 days. Check your wound every day for any signs that the infection is getting worse. The signs are listed below. When to seek medical advice Call your healthcare provider right away if any of these occur: Increasing redness or swelling Red streaks in the skin leading away from the wound Increasing local pain or swelling Continued pus draining from the wound 2 days after treatment Fever of 100.4 F (38 C) or higher, or as directed by your healthcare provider Boil returns when you are at home 2066-3956 [employer]. [address] [place] [id number]. All rights reserved. This information is not intended as a substitute for professional medical care. Always follow yourhealthcare professional's instructions. Additional Information VACCINATE! IT SAVES LIVES! Members of the community who have not yet received the COVID-19 vaccine and would like to receive it can visit one of [facility] vaccine clinics. There are many vaccine clinic locations within the [facility]. For locations and available times, please visit www.gettheshot.coronavirus.[place].gov/. It is important to note that some COVID mobile vaccine clinics are held outdoors and may be canceled in rainy or stormy conditions. To learn more about pediatric vaccinations (ages 5-11), we invite you to visit the [facility] webpage. [email or web address] learn more about the COVID-19 vaccine, we invite you to visit the CDC website for a list of frequently asked questions. https://www.cdc.gov/coronavirus/2019-ncov/vaccines/faq.html [facility] Patient Portal Access Instructions: Stay connected with your healthcare team and access your personal medical information anytime with the [facility] Patient Portal. If you would like a full copy of your medical records please contact the [facility] Medical Records Department Friday through Friday between 8a.m. and 4:30p.m. Please follow the directions below to access the portal: 1.Access the email account you provided upon registration to the [facility].2.Look for an invitation email from [facility].3.Open the email and access the invitation link: Accept Invitation to [facility]4.Fill in the required ellis to create your account. Sign into [email or web address] with your username and password that you created in the above steps to stay up to date. You can then view a summary of results, a summary of your visits, and the ability to download your summaries to your computer or send the information securely to a physician. Remember that your healthcare information is confidential, so carefully consider who you will allow to register on the [facility] Patient Portal for access to your information. You can also access the web care [facility] Patient Portal on the [employer]. Simply click on Health Records under [employer] and then click on the [employer] logo. HOW TO SAFELY DISPOSE OF PRESCRIPTION MEDICATIONS Please use one of the following methods to safely dispose of your unused medications. 1.Use a drug disposal kit: the drug disposal pouch allows you to safely discard your old and unuseddrugs. Ask your nurse to give you one when you are discharged.2.Visit a local take-back location: Many local pharmacies and police departments have programs that collect old and unwanted prescriptiondrugs. Call your local pharmacy or go to http://4s91.com.Codoon/6P9Sy4y to find one close to you.3.Make use of household items: Use cat litter or old coffee grounds to dispose medications if other options arenot available. Mix your drugs with these household products, seal them in an airtight container andthrow it into the garbage. Call [facility]: [phone] to be sure your drugs can be disposed of in this way. Some medicines may require a different approach.4.Never flush your medications down the toilet. IF YOU HAVE BEEN PRESCRIBED AN OPIOIDS FOR PAIN If you have been prescribed an opioid (such as hydrocodone, oxycodone or morphine), it is critical to understand the possible side effects and risks of opioid pain medications. Even when taken as directed, opioids can have several side effects including: Tolerance, meaning you might need to take more of a medication for the same pain relief. Nausea, vomiting and/or constipation. Sleepiness, dizziness, dry mouth, confusion, depression or itching. Physical dependence, meaning you have withdrawal symptoms when a medication is stopped ? this can develop within a few days. KNOW YOUR RESPONSIBILITIES It is important to know exactly how much and how often to take the opioid pain medications you are prescribed. Never take opioids in higher amounts or more often than prescribed. Do not combine opioids with alcohol or other drugs that cause drowsiness, such as benzodiazepines, also known as benzos,including diazepam and alprazolam, muscle relaxants or sleep aids. Never sell or share prescriptionopioids. This is illegal. Store opioids in a secure place and out of reach of others (including children, family, friends and visitors). The last page(s) of this document has been signed and retained as a CHART COPY Signatures Patient Education Materials Abscess, Incision And Drainage Medication Leaflets doxycycline (oral/injection) My discharge plan and instructions have been reviewed and explained to me and I,DONNA MCMAHON understand my current condition and have read and understand these discharge instructions. I have received a written copy of the plan/instructions. If I have questions, I am aware that I should contact my doctor. 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 EXAMINATION: ULTRASOUND OF THE RIGHT BREAST 02/24/2025 11:06 am TECHNIQUE: Color flow and reyes scale targeted ultrasound of the right breast were performed. Permanently stored images were reviewed. COMPARISON: None. HISTORY: ORDERING SYSTEM PROVIDED HISTORY: Reason for Exam: Palpable mass right breast for several months with poss leaking from the lesion. FINDINGS: At the site of palpable clinical concern at 3 o'clock right breast 12 cm from the nipple there is a 2.3 x 2.2 x 2.4 cm slightly irregularly shaped hypoechoic mass with posterior acoustic enhancement with no vascularity, there is some low level internal echoes and septations. There is some associated skin thickening. No other visible abnormalities. IMPRESSION: Right breast lesion accounting for the palpable abnormality, this is consistent with an abscess, recommend clinical follow-up and a follow-up ultrasound in 6 months to document resolution. [facility] risk calculations, generated with the history provided, report this patient's 10 year risk and lifetime risk for developing breast cancer at 0.2% and 16.5%, respectively. Based on this assessment tool, if the patient's calculated lifetime risk is below 20%, then the patient is considered at average risk for developing breast cancer. If the patient's calculated lifetime risk is at or above 20%, then the patient is considered high risk for developing breast cancer and may be a candidate for supplemental breast MRI screening in addition to annual mammographic screening per the [place] [employer]. BIRADS: BI-RADS: 3: Probably Benign RECALL: 6 month follow-up RECALL TYPE: US LETTER SENT: Probably Benign BI-RADS 3 Interpreted by: Ollie Santizo MD Preliminary Report By: Ollie Santizo MD Electronically signed By Ollie Santizo MD Dictated Date: 02/24/2025 11:25:17 AM Prelim Date: 02/24/2025 11:28:55 AM Sign Date: 02/24/2025 11:28:55 AM Ordering Provider: EMY PEREZ Landscape Foreman: BABS JADE RT (R, CT), RDMS letter sent: Probably Benign BI-RADS 3 Ultrasound BI-RADS: 3 Probably benign [facility]05-19-2025 Telephone encounter Note* Telephone Encounter - Carol Glasgow LPN - 02/14/2025 11:39 AM EDT [employer] message sent to patient regarding results and medication being sent, She has seen same and is active on MyChart as of Today. Carol Glasgow LPN [facility]05-19-2025 Miscellaneous Notes* Telephone Encounter - Carol Glasgow LPN - 02/14/2025 11:39 AM EDT MyChart message sent to patient regarding results and medication being sent, She has seen same and is active on MyChart as of Today. Carol Glasgow LPN * Telephone Encounter - Esther Neri MA - 02/14/2025 10:34 AM EDT Unable to reach patient. Mailbox full/Mailbox not set up/ Number incorrect. Please try again later. Esther Neri MA * Telephone Encounter - Danish Yang APRN.CNP - 02/14/2025 9:27 AM EDT Please notify positive for yeast on testing. G/c and bv negative. Will send diflucan to pharmacy. F/u with boilermaker or pcp if s/s persist. [facility] Telephone encounter Note * Telephone Encounter - Esther Neri MA - 02/14/2025 10:34 AM EDT Unable to reach patient. Mailbox full/Mailbox not set up/ Number incorrect. Please try again later. Esther Neri MA [facility]05-19-2025 Telephone encounter Note* Telephone Encounter - Danish Yang APRN.CNP - 02/14/2025 9:27 AM EDT Please notify positive for yeast on testing. G/c and bv negative. Will send diflucan to pharmacy. F/u with boilermaker or pcp if s/s persist. [facility]05-18-2025 Instructions* Patient Instructions* Michelle Mcwilliams APRN.CNP - 02/13/2025 10:41 AM EDT 1. Primary amenorrhea (N91.0) - Last menstrual period in September; last Depo-Provera injection in May. - Amenorrhea likely secondary to Depo-Provera use. - Discussed potential resumption of menses following discontinuation of Depo-Provera. 2. Vaginal spotting (N93.9) 3. Bleeding after intercourse (N93.0) - Noted erythema on cervical examination, no visible tears; potential source of bleeding. - Urine test negative. - Collected swabs for gonorrhea, chlamydia, yeast, bacterial vaginosis, and trichomonas. - Advised abstinence from intercourse until evaluation by OBGYN to prevent further cervical irritation. - Recommended follow-up with established OBGYN at [facility] or [facility]. - Will provide test results tomorrow. 4. Encounter for screening examination for sexually transmitted disease (Z11.3) - Multiple sexual partners; high risk for STDs. - Educated on risks of STDs and importance of screening. - Collected swabs for gonorrhea, chlamydia, yeast, bacterial vaginosis, and trichomonas. - Will provide test results tomorrow. Await a call tomorrow with the results from your swab tests (gonorrhea, chlamydia, yeast, PV, and trichomonas). Refrain from sexual intercourse until you see an OBGYN to prevent further irritation of your cervix. Schedule an appointment with your OBGYN--either your established provider at [facility] or one of the [facility] providers--as soon as possible for further evaluation. documented in this encounter[facility]25 NoteHNO ID: [id number] Author: MICHELLE MCWILLIAMS APRN.CNP Service: ? Author Type: Nurse Practitioner Type: Progress Notes Filed: 02/13/2025 10:42 Note Text: [facility] Subjective Donna Mcmahon is a 24 year old female. Patient presents with: Vaginal Problem: Cramping and bleeding and passing stringy blood clots during sex x 1 day Vagina feels irritated, no issues previous to sex yesterday Vaginal Problem Pertinent negatives include no chills or fever. Postcoital Spotting and Cramping: - Onset in 2020, initially presenting with significant bleeding and clot passage post-intercourse. - Diagnosed with a cervical tear by road grader operator; treated with an unspecified medication, resulting in symptom resolution. - Recent recurrence of spotting and cramping post-intercourse. - Associated nausea; denies fever, chills, emesis, or abdominal pain. - Last menstrual period: September (first or second week). - Last Depo-Provera injection: May; not currently using control. - Engages in sexual activity with multiple partners; inconsistent condom use. - Recent home test was negative. 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 Review of Systems Constitutional: Negative for chills and fever. Genitourinary: Positive for vaginal discharge and vaginal pain (during intercourse). Negative for difficulty urinating, dysuria, frequency, genital sores, hematuria and urgency. Constitutional: (-) fever, (-) chills Gastrointestinal: (+) nausea, (-) vomiting, (-) abdominal pain Genitourinary: (+) postcoital spotting, (+) postcoital cramping Objective BP 130/90 Pulse 102 Temp 36.7 ?C (98.1 ?F) Resp 18 Wt 111 kg (244 lb 11.4 oz) LMP 10/13/2024 (Approximate) SpO2 98% BMI 40.72 kg/m? PAST MEDICAL HISTORY Diagnosis Date - Mild intermittent asthma without complication (HCC) - PCOS (polycystic ovarian syndrome) PAST SURGICAL HISTORY Procedure Laterality Date - STRABISMUS SURG PT W SCAR EO MUSCL ALLERGIES Amoxicillin-Pot Clavulanate and Vancomycin MEDICATIONS - albuterol HFA (PROVENTIL HFA, VENTOLIN HFA) 90 mcg/actuation inhaler Inhale 2 Puffs as instructed every 4 hours as needed. - blood sugar diagnostic (BLOOD GLUCOSE TEST) test strip Test blood sugar(s) one times daily. Dx: Type 2 DM - Controlled E11.9 Insulin: No - albuterol (PROVENTIL) 2.5 mg /3 mL (0.083 %) nebulizer solution Use 3 mL via nebulizer every 4 hours as needed for wheezing/shortness of breath. - valACYclovir (VALTREX) 500 mg tablet Take 1,000 mg by mouth as needed (outbreaks). - cetirizine (ZYRTEC) 10 mg tablet Take 1 tablet by mouth once daily. - Lancets lancets Test blood sugar(s) one times daily. Dx: Type 2 DM - Controlled E11.9 Insulin: No - doxycycline hyclate (VIBRAMYCIN) 100 mg capsule (Patient not taking: Reported on 12/27/2024) - metFORMIN ER (GLUCOPHAGE XR) 500 mg 24 hr tablet Take 1 tablet by mouth daily with breakfast. 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 Genitourinary: General: Normal vulva. Exam position: Lithotomy position. Labia: Right: No rash, tenderness, lesion or injury. Left: No rash, tenderness, lesion or injury. Vagina: Normal. No vaginal discharge, erythema, tenderness, bleeding or lesions. Cervix: Erythema and cervical bleeding present. No discharge or lesion. General: No acute distress. : Cervical erythema, no cervical tear visualized. {1. Primary amenorrhea (N91.0) - Last menstrual period in September; last Depo-Provera injection in May. - Amenorrhea likely secondary to Depo-Provera use. - Discussed potential resumption of menses following discontinuation of Depo-Provera. 2. Vaginal spotting (N93.9) 3. Bleeding after intercourse (N93.0) - Noted erythema on cervical examination, no visible tears; potential source of bleeding. - Urine test negative. - Collected swabs for gonorrhea, chlamydia, yeast, bacterial vaginosis, and trichomonas. - Advised abstinence from intercourse until evaluation by OBGYN to prevent further cervical irritation. - Recommended follow-up with established OBGYN at [facility] or [facility]. - Will provide test results tomorrow. 4. Encounter for screening examination for sexually transmitted disease (Z11.3) - Multiple sexual partners; high risk for STDs. - Educated on risks of STDs and importance of screening. - Collected swabs for gonorrhea, chlamydia, yea (more content not included)... [facility]05-18-2025 History of Present illness Narrative* Michelle Mcwilliams APRN.DIVEMASTER - 02/13/2025 10:39 AM EDT [facility] Subjective Donna Mcmahon is a 24 year old female. Patient presents with: Vaginal Problem: Cramping and bleeding and passing stringy blood clots during sex x 1 day Vagina feels irritated, no issues previous to sex yesterday Vaginal Problem Pertinent negatives include no chills or fever. Postcoital Spotting and Cramping: - Onset in 2020, initially presenting with significant bleeding and clot passage post-intercourse. - Diagnosed with a cervical tear by road grader operator; treated with an unspecified medication, resultingin symptom resolution. - Recent recurrence of spotting and cramping post-intercourse. - Associated nausea; denies fever, chills, emesis, or abdominal pain. - Last menstrual period: September (first or second week). - Last Depo-Provera injection: May; not currently using control. - Engages in sexual activity with multiple partners; inconsistent condom use. - Recent home test was negative. 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 Review of Systems Constitutional: Negative for chills and fever. Genitourinary: Positive for vaginal discharge and vaginal pain (during intercourse). Negative for difficulty urinating, dysuria, frequency, genital sores, hematuria and urgency. Constitutional: (-) fever, (-) chills Gastrointestinal: (+) nausea, (-) vomiting, (-) abdominal pain Genitourinary: (+) postcoital spotting, (+) postcoital cramping Objective BP 130/90 Pulse 102 Temp 36.7 C (98.1 F) Resp 18 Wt 111 kg (244 lb 11.4 oz) LMP 10/13/2024 (Approximate) SpO2 98% BMI 40.72 kg/m PAST MEDICAL HISTORY Diagnosis Date Mild intermittent asthma without complication (HCC) PCOS (polycystic ovarian syndrome) PAST SURGICAL HISTORY Procedure Laterality Date STRABISMUS SURG PT W SCAR EO MUSCL ALLERGIES Amoxicillin-Pot Clavulanate and Vancomycin MEDICATIONS albuterol HFA (PROVENTIL HFA, VENTOLIN HFA) 90 mcg/actuation inhaler Inhale 2 Puffs as instructed every 4 hours as needed. blood sugar diagnostic (BLOOD GLUCOSE TEST) test strip Test blood sugar(s) one times daily. Dx: Type 2 DM - Controlled E11.9 Insulin: No albuterol (PROVENTIL) 2.5 mg /3 mL (0.083 %) nebulizer solution Use 3 mL via nebulizer every 4 hours as needed for wheezing/shortness of breath. valACYclovir (VALTREX) 500 mg tablet Take 1,000 mg by mouth as needed (outbreaks). cetirizine (ZYRTEC) 10 mg tablet Take 1 tablet by mouth once daily. Lancets lancets Test blood sugar(s) one times daily. Dx: Type 2 DM - Controlled E11.9 Insulin: No doxycycline hyclate (VIBRAMYCIN) 100 mg capsule (Patient not taking: Reported on 12/27/2024) metFORMIN ER (GLUCOPHAGE XR) 500 mg 24 hr tablet Take 1 tablet by mouth daily with breakfast. (Patient not taking: Reported on 12/27/2024) medroxyPROGESTERone (DEPO-PROVERA) 150 mg/mL (Patient not taking: Reported on 10/21/2024) FAMILY HISTORY Problem Relation Age of Onset Hypertension Father Social History Tobacco Use Smoking status: Never Smokeless tobacco: Never Vaping Use Vaping status: Never Used Substance Use Topics Alcohol use: Not Currently Drug use: Never Physical Exam Exam conducted with a superintendent drilling and production present. Genitourinary: General: Normal vulva. Exam position: Lithotomy position. Labia: Right: No rash, tenderness, lesion or injury. Left: No rash, tenderness, lesion or injury. Vagina: Normal. No vaginal discharge, erythema, tenderness, bleeding or lesions. Cervix: Erythema and cervical bleeding present. No discharge or lesion. General: No acute distress. : Cervical erythema, no cervical tear visualized. {1. Primary amenorrhea (N91.0) - Last menstrual period in September; last Depo-Provera injection in May. - Amenorrhea likely secondary to Depo-Provera use. - Discussed potential resumption of menses following discontinuation of Depo-Provera. 2. Vaginal spotting (N93.9) 3. Bleeding after intercourse (N93.0) - Noted erythema on cervical examination, no visible tears; potential source of bleeding. - Urine test negative. - Collected swabs for gonorrhea, chlamydia, yeast, bacterial vaginosis, and trichomonas. - Advised abstinence from intercourse until evaluation by OBGYN to prevent further cervical irritation. - Recommended follow-up with established OBGYN at [facility] or [facility]. - Will provide test results tomorrow. 4. Encounter for screening examination for sexually transmitted disease (Z11.3) - Multiple sexual partners; high risk for STDs. - Educated on risks of STDs and importance of screening. - Collected swabs for gonorrhea, chlamydia, yeast, bacterial vaginosis, and trichomonas. - Will provide test results tomorrow. - Follow-up with your PCP in 3-5 days if symptoms have not improved or sooner if symptoms worsen - Discussed red flags and need for immediate medical evaluation if any occur. - Discussed supportive care treatment - Discussed expected course of illness Michelle Mcwilliams APRN.CNP Recording using [employer] software for draft documentation of the visit was discussed with the patient/authorized wire rope sales representative; all questions welcomed and answered. Patient/authorized wire rope sales representative agreed to proceed Disposition The patient was discharged. Procedures documented in [facility] Instructions* Patient Instructions* Traci Barker APRN.CNP - 12/27/2024 3:44 PM EDT Will send urine and vaginal cultures - will notify of results and treatment needed. Take fluconazole as ordered Follow up with documented in this encounterCommunity [facility]03-31-2025 NoteHNO ID: [id number] Author: TRACI BARKER APRN.DIVEMASTER Service: ? Author Type: Nurse Practitioner Type: Progress Notes Filed: 12/27/2024 16:04 Note Text: [facility] Subjective Donna Mcmahon is a 24 year old female. Patient presents with: Urinary Problem: burning with urination, check for bv and yeast The history is provided by the patient. No teller vault was used. HPI Donna Mcmahon is a 24 year old female who presents today for CC of burning with urination and also having vaginal discharge Positive for Dysuria and Vaginal itch or discharge, Negative for Abdominal pain , Back/Flank pain, Bladder pressure, Blood in urine, Cloudy urine, Diarrhea, Fevers, Increase in frequency of urination, Malodorous urine, Sense of incomplete void, Urgency, and Vomiting Chance of : No Last intercourse: n/a Any self-treatment attempted: No Number of previous UTI's in last 6 months:0 Number of previous UTI's in last 12 months: 0 Aggravating Factors: voiding Alleviating Factors include none attempted. Patient states she was washing with anirudh dish soap to help with vaginal discharge Denies being sexually active, declines sti testing desires vaginal cultures. BP 102/72 Pulse 100 Temp 36.5 ?C (97.7 ?F) Resp 16 Wt 110.3 kg (243 lb 2.7 oz) LMP (LMP Unknown) SpO2 96% BMI 40.47 kg/m? Social History Tobacco Use Smoking status: Never Smokeless tobacco: Never Vaping Use Vaping status: Never Used Substance Use Topics Alcohol use: Not Currently Drug use: Never PAST MEDICAL HISTORY Diagnosis Date Mild intermittent asthma without complication PCOS (polycystic ovarian syndrome) I have confirmed and edited as necessary, the [facility] Review of Systems Constitutional: Negative for fever. Gastrointestinal: Negative for abdominal pain and nausea. Genitourinary: Positive for dysuria and vaginal discharge. Negative for decreased urine volume, difficulty urinating, genital sores, pelvic pain, urgency and vaginal pain. Objective BP 102/72 Pulse 100 Temp 36.5 ?C (97.7 ?F) Resp 16 Wt 110.3 kg (243 lb 2.7 oz) LMP (LMP Unknown) SpO2 96% BMI 40.47 kg/m? Physical Exam Vitals and nursing note reviewed. HENT: Head: Normocephalic and atraumatic. Eyes: Conjunctiva/sclera: Conjunctivae normal. Pupils: Pupils are equal, round, and reactive to light. Pulmonary: Effort: Pulmonary effort is normal. Abdominal: Palpations: Abdomen is soft. Abdomen is not rigid. Tenderness: There is no abdominal tenderness. There is no guarding or rebound. Musculoskeletal: Cervical back: Normal range of motion and neck supple. Skin: General: Skin is warm. Neurological: Mental Status: She is alert and oriented to person, place, and time. Declines exam will self swab {ASSESSMENT/PLAN: 1. Burning with urination - ICD9: 788.1, ICD10: R30.0 (primary diagnosis) acute - UA positive for proteinuria and glucosuria, not taking metformin - Send urine for culture Will call with culture results and treatment needed - UA DIP, URINE (POC) - BACTERIAL CULTURE, URINE 2. Acute vaginitis - ICD9: 616.10, ICD10: N76.0 Will self swab Treated today with fluconazole, will call if additional treatment indicated from testing. - ITZ/TRICHOMONAS NAAT - BACTERIAL VAGINOSIS NAAT History and Record Review External record(s) reviewed: prior outpatient record. Findings from review of outpatient records: previous urine culture negative, positive for bv and yeast on vaginal cultures Diagnosis and treatment plan were discussed and questions were answered to the patient's satisfaction. Pt acknowledged understanding of concepts and follow up plan. Specific signs and symptoms that would indicate the need for higher level of care were discussed in detail warranting prompt ER evaluation. Traci Barker APRN.[facility]03-31-2025 History of Present illness Narrative* Traci Barker APRN.[facility] - 12/27/2024 3:35 PM EDT [facility] Subjective Donna Mcmahon is a 24 year old female. Patient presents with: Urinary Problem: burning with urination, check for bv and yeast The history is provided by the patient. No teller vault was used. HPI Donna Mcmahon is a 24 year old female who presents today for CC of burning with urination andalso having vaginal discharge Positive for Dysuria and Vaginal itch or discharge, Negative for Abdominal pain , Back/Flank pain, Bladder pressure, Blood in urine, Cloudy urine, Diarrhea, Fevers, Increase in frequency of urination, Malodorous urine, Sense of incomplete void, Urgency, and Vomiting Chance of : No Last intercourse: n/a Any self-treatment attempted: No Number of previous UTI's in last 6 months:0 Number of previous UTI's in last 12 months: 0 Aggravating Factors: voiding Alleviating Factors include none attempted. Patient states she was washing with anirudh dish soap to help with vaginal discharge Denies being sexually active, declines sti testing desires vaginal cultures. BP 102/72 Pulse 100 Temp 36.5 C (97.7 F) Resp 16 Wt 110.3 kg (243 lb 2.7 oz) LMP (LMP Unknown) SpO2 96% BMI 40.47 kg/m Social History Tobacco Use Smoking status: Never Smokeless tobacco: Never Vaping Use Vaping status: Never Used Substance Use Topics Alcohol use: Not Currently Drug use: Never PAST MEDICAL HISTORY Diagnosis Date Mild intermittent asthma without complication PCOS (polycystic ovarian syndrome) I have confirmed and edited as necessary, the [facility] Review of Systems Constitutional: Negative for fever. Gastrointestinal: Negative for abdominal pain and nausea. Genitourinary: Positive for dysuria and vaginal discharge. Negative for decreased urine volume, difficulty urinating, genital sores, pelvic pain, urgency and vaginal pain. Objective BP 102/72 Pulse 100 Temp 36.5 C (97.7 F) Resp 16 Wt 110.3 kg (243 lb 2.7 oz) LMP (LMP Unknown) SpO2 96% BMI 40.47 kg/m Physical Exam Vitals and nursing note reviewed. HENT: Head: Normocephalic and atraumatic. Eyes: Conjunctiva/sclera: Conjunctivae normal. Pupils: Pupils are equal, round, and reactive to light. Pulmonary: Effort: Pulmonary effort is normal. Abdominal: Palpations: Abdomen is soft. Abdomen is not rigid. Tenderness: There is no abdominal tenderness. There is no guarding or rebound. Musculoskeletal: Cervical back: Normal range of motion and neck supple. Skin: General: Skin is warm. Neurological: Mental Status: She is alert and oriented to person, place, and time. Declines exam will self swab {ASSESSMENT/PLAN: 1. Burning with urination - ICD9: 788.1, ICD10: R30.0 (primary diagnosis) acute - UA positive for proteinuria and glucosuria, not taking metformin - Send urine for culture Will call with culture results and treatment needed - UA DIP, URINE (POC) - BACTERIAL CULTURE, URINE 2. Acute vaginitis - ICD9: 616.10, ICD10: N76.0 Will self swab Treated today with fluconazole, will call if additional treatment indicated from testing. - ITZ/TRICHOMONAS NAAT - BACTERIAL VAGINOSIS NAAT History and Record Review External record(s) reviewed: prior outpatient record. Findings from review of outpatient records: previous urine culture negative, positive for bv and yeast on vaginal cultures Diagnosis and treatment plan were discussed and questions were answered to the patient's satisfaction. Pt acknowledged understanding of concepts and follow up plan. Specific signs and symptoms that would indicate the need for higher level of care were discussed indetail warranting prompt ER evaluation. Traci Barker APRN.[facility] documented in this [facility]Community [facility]03-[facility]25 Telephone encounter Note * Telephone Encounter - Carol Glasgow LPN - 12/09/2024 8:05 AM EDT Phone has restrictions that would not allow call to go through to patient. This nurse sent a MyChart message to patient as she is active on her chart. Carol Glasgow LPN [facility]03-13-2025 Miscellaneous Notes* Telephone Encounter - Carol Glasgow LPN - 12/09/2024 8:05 AM EDT Phone has restrictions that would not allow call to go through to patient. This nurse sent a MyChart message to patient as she is active on her chart. Carol Glasgow LPN * Telephone Encounter - Darrel Greenfield APRN.CNP - 12/09/2024 7:05 AM EDT Please call patient let her know she is positive for bacterial vaginosis and yeast. Flagyl twice a day for 7 days was called and patient cannot drink any alcohol on this medication. Patient should take the Diflucan after she completes the Flagyl. Patient was negative for trichomonas gonorrhea chlamydia. documented in this [facility]03-[facility]25 Telephone encounter Note * Telephone Encounter - Darrel Greenfield APRN.CNP - 12/09/2024 7:05 AM EDT Please call patient let her know she is positive for bacterial vaginosis and yeast. Flagyl twice a day for 7 days was called and patient cannot drink any alcohol on this medication. Patient should take the Diflucan after she completes the Flagyl. Patient was negative for trichomonas gonorrhea chlamydia. [facility]03-12-2025 NoteHNO ID: [id number] Author: DARREL GREENFIELD APRN.CNP Service: ? Author Type: Nurse Practitioner Type: Progress Notes Filed: 12/08/2024 09:38 Note Text: CC: Patient presents with: Vaginal Problem: Vaginal itching and discharge and urgency x 3 days HPI Donna Mcmahon is a 24 year old female presenting for vaginal discharge. Two days ago she started with vaginal itching. She thought she was having a herpes outbreak. Yesterday she developed yellow/white vaginal discharge with continued itching. There is burning to the skin when she voids. She has not noticed any lesions or sores but has not done a self exam. She had unprotected sex last week with a new partner. She states I wiped after, and his stuff was yellow. She reports he denied any STD's. She is not having pelvic pain, vaginal pain, dyspareunia or abnormal bleeding. Review of Systems Constitutional: Negative for activity change, chills, fatigue and fever. Cardiovascular: Negative for chest pain and palpitations. Gastrointestinal: Negative for abdominal pain, diarrhea, nausea, rectal pain and vomiting. Genitourinary: Positive for dysuria and vaginal discharge (itching). Negative for dyspareunia, flank pain, frequency, genital sores, hematuria, menstrual problem, pelvic pain, urgency, vaginal bleeding and vaginal pain. PAST MEDICAL HISTORY Diagnosis Date Mild intermittent asthma without complication PCOS (polycystic ovarian syndrome) PAST SURGICAL HISTORY Procedure Laterality Date STRABISMUS SURG PT W SCAR EO MUSCL ALLERGIES Amoxicillin-Pot Clavulanate and Vancomycin MEDICATIONS doxycycline hyclate (VIBRAMYCIN) 100 mg capsule metFORMIN ER (GLUCOPHAGE XR) 500 mg 24 hr tablet Take 1 tablet by mouth daily with breakfast. albuterol HFA (PROVENTIL HFA, VENTOLIN HFA) 90 mcg/actuation inhaler Inhale 2 Puffs as instructed every 4 hours as needed. blood sugar diagnostic (BLOOD GLUCOSE TEST) test strip Test blood sugar(s) one times daily. Dx: Type 2 DM - Controlled E11.9 Insulin: No albuterol (PROVENTIL) 2.5 mg /3 mL (0.083 %) nebulizer solution Use 3 mL via nebulizer every 4 hours as needed for wheezing/shortness of breath. valACYclovir (VALTREX) 500 mg tablet Take 1,000 mg by mouth as needed (outbreaks). cetirizine (ZYRTEC) 10 mg tablet Take 1 tablet by mouth once daily. Lancets lancets Test blood sugar(s) one times daily. Dx: Type 2 DM - Controlled E11.9 Insulin: No metroNIDAZOLE (FLAGYL) 500 mg tablet (Patient not taking: Reported on 12/08/2024) medroxyPROGESTERone (DEPO-PROVERA) 150 mg/mL (Patient not taking: Reported on 10/21/2024) FAMILY HISTORY Problem Relation Age of Onset Hypertension Father Social History Tobacco Use Smoking status: Never Smokeless tobacco: Never Vaping Use Vaping status: Never Used Substance Use Topics Alcohol use: Not Currently Drug use: Never BP 128/80 Pulse 100 Temp 36.6 ?C (97.8 ?F) (Tympanic) Resp 18 Wt 111.8 kg (246 lb 7.6 oz) LMP (LMP Unknown) SpO2 97% BMI 41.02 kg/m? Physical Exam Cardiovascular: Rate and Rhythm: Normal rate and regular rhythm. Heart sounds: Normal heart sounds, S1 normal and S2 normal. No murmur heard. Pulmonary: Effort: Pulmonary effort is normal. Breath sounds: Normal breath sounds. Abdominal: General: Bowel sounds are normal. Tenderness: There is no abdominal tenderness. There is no right CVA tenderness or left CVA tenderness. Genitourinary: Pubic Area: No rash. Labia: Right: No rash, tenderness, lesion or injury. Left: No rash, tenderness, lesion or injury. Urethra: No prolapse or urethral swelling. Vagina: Vaginal discharge and erythema (Surrounding the vaginal opening) present. Cervix: Discharge (White and thick) present. No lesion or cervical bleeding. Uterus: No uterine prolapse. Rectum: Guaiac stool: difluc. No external hemorrhoid. Neurological: Mental Status: She is alert. Psychiatric: Behavior: Behavior is cooperative. ASSESSMENT/PLAN: 1. Vaginal discharge - ICD9: 623.5, ICD10: N89.8 (primary diagnosis) White thick discharge in vaginal canal and at cervix with vaginal itching. No pelvic pain, lesions or abnormal bleeding. Erythema surrounding vaginal opening. Patient self swabbed.Requests STD testing. - Discussed safe sex practices - Advised to continue managing blood glucose. - Follow up in 3-5 days if symptoms worsen. - Start taking Diflucan - Will call with results - GONORRHEA/CHLAMYDIA NAAT - BV/ITZ/TRICHOMONAS 2. Urgency of urination - ICD9: 788.63, ICD10: R39.15 Urine dip negative for UTI. Patient denies dysuria, no CVA tenderness, Afebrile.Culture sent. - UA DIP, URINE (POC) - BACTERIAL CULTURE, URINE Prescription instructions reviewed with patient as applicable. Potential red flag symptoms discussed with the patient. Reviewed appropriate action plan to take if red flag symptoms occur. Patient agreeable to treatment plan. Blayne Hoffman Supervising provid (more content not included)...[facility] 12-08-2024 History of Present illness Narrative* Darrel Greenfield APRN.[facility] - 12/08/2024 9:04 AM EDT CC: Patient presents with: Vaginal Problem: Vaginal itching and discharge and urgency x 3 days HPI Donna Mcmahon is a 24 year old female presenting for vaginal discharge. Two days ago she started with vaginal itching. She thought she was having a herpes outbreak. Yesterday she developed yellow/white vaginal discharge with continued itching. There is burning to the skin when she voids. She has not noticed any lesions or sores but has not done a self exam. She had unprotected sex last week with a new partner. She states I wiped after, and his stuff was yellow. She reports he denied any STD's. She is not having pelvic pain, vaginal pain, dyspareunia or abnormal bleeding. Review of Systems Constitutional: Negative for activity change, chills, fatigue and fever. Cardiovascular: Negative for chest pain and palpitations. Gastrointestinal: Negative for abdominal pain, diarrhea, nausea, rectal pain and vomiting. Genitourinary: Positive for dysuria and vaginal discharge (itching). Negative for dyspareunia, flank pain, frequency, genital sores, hematuria, menstrual problem, pelvic pain, urgency, vaginal bleeding and vaginal pain. PAST MEDICAL HISTORY Diagnosis Date Mild intermittent asthma without complication PCOS (polycystic ovarian syndrome) PAST SURGICAL HISTORY Procedure Laterality Date STRABISMUS SURG PT W SCAR EO MUSCL ALLERGIES Amoxicillin-Pot Clavulanate and Vancomycin MEDICATIONS doxycycline hyclate (VIBRAMYCIN) 100 mg capsule metFORMIN ER (GLUCOPHAGE XR) 500 mg 24 hr tablet Take 1 tablet by mouth daily with breakfast. albuterol HFA (PROVENTIL HFA, VENTOLIN HFA) 90 mcg/actuation inhaler Inhale 2 Puffs as instructed every 4 hours as needed. blood sugar diagnostic (BLOOD GLUCOSE TEST) test strip Test blood sugar(s) one times daily. Dx: Type 2 DM - Controlled E11.9 Insulin: No albuterol (PROVENTIL) 2.5 mg /3 mL (0.083 %) nebulizer solution Use 3 mL via nebulizer every 4 hours as needed for wheezing/shortness of breath. valACYclovir (VALTREX) 500 mg tablet Take 1,000 mg by mouth as needed (outbreaks). cetirizine (ZYRTEC) 10 mg tablet Take 1 tablet by mouth once daily. Lancets lancets Test blood sugar(s) one times daily. Dx: Type 2 DM - Controlled E11.9 Insulin: No metroNIDAZOLE (FLAGYL) 500 mg tablet (Patient not taking: Reported on 12/08/2024) medroxyPROGESTERone (DEPO-PROVERA) 150 mg/mL (Patient not taking: Reported on 10/21/2024) FAMILY HISTORY Problem Relation Age of Onset Hypertension Father Social History Tobacco Use Smoking status: Never Smokeless tobacco: Never Vaping Use Vaping status: Never Used Substance Use Topics Alcohol use: Not Currently Drug use: Never BP 128/80 Pulse 100 Temp 36.6 C (97.8 F) (Tympanic) Resp 18 Wt 111.8 kg (246 lb 7.6 oz) LMP (LMP Unknown) SpO2 97% BMI 41.02 kg/m Physical Exam Cardiovascular: Rate and Rhythm: Normal rate and regular rhythm. Heart sounds: Normal heart sounds, S1 normal and S2 normal. No murmur heard. Pulmonary: Effort: Pulmonary effort is normal. Breath sounds: Normal breath sounds. Abdominal: General: Bowel sounds are normal. Tenderness: There is no abdominal tenderness. There is no right CVA tenderness or left CVA tenderness. Genitourinary: Pubic Area: No rash. Labia: Right: No rash, tenderness, lesion or injury. Left: No rash, tenderness, lesion or injury. Urethra: No prolapse or urethral swelling. Vagina: Vaginal discharge and erythema (Surrounding the vaginal opening) present. Cervix: Discharge (White and thick) present. No lesion or cervical bleeding. Uterus: No uterine prolapse. Rectum: Guaiac stool: difluc. No external hemorrhoid. Neurological: Mental Status: She is alert. Psychiatric: Behavior: Behavior is cooperative. ASSESSMENT/PLAN: 1. Vaginal discharge - ICD9: 623.5, ICD10: N89.8 (primary diagnosis) White thick discharge in vaginal canal and at cervix with vaginal itching. No pelvic pain, lesions or abnormal bleeding. Erythema surrounding vaginal opening. Patient self swabbed.Requests STD testing. - Discussed safe sex practices - Advised to continue managing blood glucose. - Follow up in 3-5 days if symptoms worsen. - Start taking Diflucan - Will call with results - GONORRHEA/CHLAMYDIA NAAT - BV/ITZ/TRICHOMONAS 2. Urgency of urination - ICD9: 788.63, ICD10: R39.15 Urine dip negative for UTI. Patient denies dysuria, no CVA tenderness, Afebrile.Culture sent. - UA DIP, URINE (POC) - BACTERIAL CULTURE, URINE Prescription instructions reviewed with patient as applicable. Potential red flag symptoms discussed with the patient. Reviewed appropriate action plan to take if red flag symptoms occur. Patient agreeable to treatment plan. Blayne Hoffman Supervising provider was present and guided the care of the patient for the entire session on this date. All documentation was reviewed and agreed upon. Darrel Greenfield APRN.[employer] Loan Underwriter was present in the room Participation of a fellow, resident, medical student, or advanced practice provider student in performing the sensitive examination was discussed with the patient or authorized wire rope sales representative. The patient or authorized wire rope sales representative has agreed to proceed with the sensitive examination. (Sensitive examination includes inspection and/or palpation of the breasts, pelvis, prostate and anorectal regions) [facility] + Plan note Extracted from: Title:History and Physical Author:CLAUDIA LEARY APRN-DIVEM[employer] Date:11/06/24 1. Tachycardia Acute, likely secondary to fever from Flu A. Patient given 2 liters of NS in the ED. Continue NS @ 100cc/hr x 24 hours. Continue Tylenol as needed for fever. 2. Influenza A Acute, new onset. Continue Tamiflu 75 mg PO BID for 5 days. 3. Type 2 diabetes mellitus Chronic. ADA diet. Blood glucose goal of 180 or less and avoid hypoglycemia. 4. Asthma Chronic, controlled. Continue duoneb aerosols as needed for shortness of breath/wheezing. DVT prophylaxis with Lovenox sc. Code status: Full Code. Labs, diagnostic test and progress notes reviewed as noted in HPI. Plan of care discussed with patient. All questions answered. Patient verbalizes understanding and is agreeable with plan of care. This case was discussed with collaborating physician, Dr. Wilver Bowie. 60 minutes spent reviewing past diagnostic tests, reviewing lab results, vital sign trends, medical history, reviewing medications and ordering home medications, examining patient, discussed plan of care with care team, collaborating with physician, and documenting in chart. [facility] 02-08-2025 Hospital Discharge instructions Patient Education 11/06/2024 11:29:42 Influenza, Adult, Swvk-de-Sbns Influenza, Adult Influenza is also called the flu. It is an infection in the lungs, nose, and throat (respiratory tract). It is caused by a virus. The flu causes symptoms that are similar to symptoms of a cold. It also causes a high fever and body aches. The flu spreads easily from person to person (is contagious). Getting a flu shot (influenza vaccination) every year is the best way to prevent the flu. What are the causes? This condition is caused by the influenza virus. You can get the virus by: Breathing in droplets that are in the air from the cough or sneeze of a person who has the virus. Touching something that has the virus on it (is contaminated) and then touching your mouth, nose, or eyes. What increases the risk? Certain things may make you more likely to get the flu. These include: Not washing your hands often. Having close contact with many people during cold and flu season. Touching your mouth, eyes, or nose without first washing your hands. Not getting a flu shot every year. You may have a higher risk for the flu, along with serious problems such as a lung infection (pneumonia), if you: Are older than 65. Are . Have a weakened disease-fighting system (immune system) because of a disease or taking certain medicines. Have a long-term (chronic) illness, such as: ?Heart, kidney, or lung disease. ?Diabetes. ?Asthma. Have a liver disorder. Are very overweight (morbidly obese). Have anemia. This is a condition that affects your red blood cells. What are the signs or symptoms? Symptoms usually begin suddenly and last 4 14 days. They may include: Fever and chills. Headaches, body aches, or muscle aches. Sore throat. Cough. Runny or stuffy (congested) nose. Chest discomfort. Not wanting to eat as much as normal (poor appetite). Weakness or feeling tired (fatigue). Dizziness. Feeling sick to your stomach (nauseous) or throwing up (vomiting). How is this treated? If the flu is found early, you can be treated with medicine that can help reduce how bad the illness is and how long it lasts (antiviral medicine). This may be given by mouth (orally) or through an IV tube. Taking care of yourself at home can help your symptoms get better. Your doctor may suggest: Taking gqed-vom-adzvyjm medicines. Drinking plenty of fluids. The flu often goes away on its own. If you have very bad symptoms or other problems, you may be treated in a hospital. Follow these instructions at home: Activity Rest as needed. Get plenty of sleep. Stay home from work or school as told by your doctor. ?Do not leave home until you do not have a fever for 24 hours without taking medicine. ?Leave home only to visit your doctor. Eating and drinking Take an ORS (oral rehydration solution). This is a drink that is sold at pharmacies and stores. Drink enough fluid to keep your pee (urine) pale yellow. Drink clear fluids in small amounts as you are able. Clear fluids include: ?Water. ?Ice chips. ?Fruit juice that has water added (diluted fruit juice). ?Low-calorie sports drinks. Eat bland, kmtl-wd-aoicau foods in small amounts as you are able. These foods include: ?Bananas. ?Applesauce. ?Rice. ?Lean meats. ?Grottoes. ?Crackers. Do not eat or drink: ?Fluids that have a lot of sugar or caffeine. ?Alcohol. ?Spicy or fatty foods. General instructions Take egtb-rqu-bwxsqxq and prescription medicines only as told by your doctor. Use a cool mist humidifier to add moisture to the air in your home. This can make it easier for youto breathe. Cover your mouth and nose when you cough or sneeze. Wash your hands with soap and water often, especially after you cough or sneeze. If you cannot use soap and water, use alcohol-based hand drop worker. Keep all follow-up visits as told by your doctor. This is important. How is this prevented? Get a flu shot every year. You may get the flu shot in late summer, fall, or winter. Ask your doctor when you should get your flu shot. Avoid contact with people who are sick during fall and winter (cold and flu season). Contact a doctor if: You get new symptoms. You have: ?Chest pain. ?Watery poop (diarrhea). ?A fever. Your cough gets worse. You start to have more mucus. You feel sick to your stomach. You throw up. Get help right away if you: Have shortness of breath. Have trouble breathing. Have skin or nails that turn a bluish color. Have very bad pain or stiffness in your neck. Get a sudden headache. Get sudden pain in your face or ear. Cannot eat or drink without throwing up. Summary Influenza (the flu) is an infection in the lungs, nose, and throat. It is caused by a virus. Take agsu-utq-gcwuien and prescription medicines only as told by your doctor. Getting a flu shot every year is the best way to avoid getting the flu. This information is not intended to replace advice given to you by your health care provider. Make sure you discuss any questions you have with your health care provider. Document Released: 06/24/2009 Document Revised: 03/03/2019 Document Reviewed: 03/03/2019 [employer] Patient Education 2020 [employer]. Follow Up Care 11/05/2024 16:09:06 With:YING PIÑA APRN.CNP Address: [address] [place] [address] [phone] When: Unknown [facility] 02-08-2025 Note Discharge Instructions Thank you for allowing [facility] to assist you with your healthcare needs. The following is importantdischarge information regarding your hospital visit. Your Care Team [facility] Your Diagnosis Asthma Influenza A Tachycardia Type 2 diabetes mellitus What to do next Instructions From Your Doctor You were admitted due to concerns of tachycardia in the ED. You were given IV fluids overnight and your heart rate is much better this morning. It is a normal response of the body to increase the heart rate when you have a fever. Your body is doing its part to fight the disease. You can take Tylenol 650 mg oral every 6 hours as needed to control fever and body aches. We will also continue Tamifluon discharge for 5 days. Please be sure to take all of this antiviral to help reduce the viral loadin your body and to help you recover faster. Please be sure to drink plenty of fluids to prevent dehydration. Follow-up with your PCP in the next week or so for post-hospitalization follow-up. If youhave any new or worsening symptoms, please return to the ED. Follow Up Appointments Follow Up with YING PIÑA APRN.[facility] Where:[address] [place] [address] [phone] The Following Activity and Diet Have Been Ordered for You Discharge Activity - Ordered -- Resume your pre-hospitalization activity, 11/06/24 11:40:00 EST Discharge Return to Work, School, or Sports - Ordered -- within 2-4 days, May return to: work, may return to work when fever resolved for 48 hours, 11/06/24 11:40:00 EST Discharge Diet - Ordered -- No changes were made to your diet during your hospital stay. Please resume your pre hospitalization diet on discharge., 11/06/24 11:40:00 EST The Following Treatments Have Been Ordered for You Discharge Labs No qualifying data available. Discharge Radiology No qualifying data available. Other Therapies No qualifying data available. Post Acute Orders No qualifying data available. Allergies amoxicillin rash vancomycin Medications Please ask your primary doctor or pharmacist before taking any other medication not listed, including over the counter drugs, herbal medications, vitamins and or supplements as they may interact withyour home medications. What How Much When Instructions Last Dose New oseltamivir (Tamiflu 75 mg oral capsule) 1 cap by mouth Two (2) times a day Duration: 5 Days Pickup at [facility]/pharmacy #[id number] 11/06/24 7:44a.m. Unchanged albuterol (albuterol 90 mcg/ inh inhalation powder) 1 puff(s) by inhalation Every 4 hours as needed for as needed N/A Unchanged metFORMIN (MetFORMIN (Eqv-Glucophage XR) 500 mg oral tablet, EXTENDED RELEASE) 1 tab(s) by mouth Once a day N/A Unchanged valACYclovir (Valtrex 1 g oral tablet) 1 tab(s) by mouth Every 24 hours Duration: 7 Days N/A Pharmacy Information [facility]/pharmacy #[id number]: [address], [place] [phone] Please take this list to your next doctor s visit. Bring all medications you take, including over the counter medications, herbals and other supplements with you to your doctor s visit. Patients and families are reminded to discard old lists and to update any records with all medication providers or retail pharmacies. Medication Leaflets oseltamivir (os el POON ih veer) Tamiflu What is the most important information I should know about oseltamivir? Some people using oseltamivir have had sudden unusual changes in mood or behavior, most often in children. It is not certain that oseltamivir is the exact cause. Even without using oseltamivir, anyone with influenza can have neurologic or behavioral effects that may lead to confusion or hallucinations. Call your doctor right away if the person using this medicine has any signs of unusual thoughtsor behavior. What is oseltamivir? Oseltamivir is an antiviral medication that blocks the actions of influenza virus types A and B in your body. Oseltamivir is used to treat flu symptoms caused by influenza virus in people who have had symptomsfor less than 2 days. Oseltamivir may also be given to prevent influenza in people who may be exposed but do not yet have symptoms. Oseltamivir will not treat the common cold. Oseltamivir should not be used in place of getting a yearly flu shot. The Centers for Disease Control recommends an annual flu shot to help protect you each year from new strains of influenza virus. Oseltamivir may also be used for purposes not listed in this medication guide. What should I discuss with my healthcare provider before using oseltamivir? You should not use oseltamivir if you are allergic to it. Do not use oseltamivir to treat flu symptoms in a child younger than 2 weeks old. Children as youngas 1 year old may use zanamivir to prevent flu symptoms. Tell your doctor if you have ever had: kidney disease (or if you are on dialysis); heart disease or chronic lung disease; a condition causing swelling or disorder of the brain; a weak immune system (caused by disease or by using certain medicine); hereditary fructose intolerance; or if you have used a nasal flu vaccine (FluMist) within the past 2 weeks. It is not known whether this medicine will harm an unborn baby. However, getting sick with influenza during can cause complications leading to defects, low weight, delivery, or stillbirth. Your doctor will decide whether you should receive oseltamivir if you are . The Centers for Disease Control and Prevention (CDC) recommends that women may receive a yearly flu vaccine to prevent influenza. Oseltamivir is not to be used in place of the yearly flu shot. It may not be safe to breast-feed while using this medicine. Ask your doctor about any risk. How should I take oseltamivir? Follow all directions on your prescription label and read all medication guides or instruction sheets. Use the medicine exactly as directed. Start taking oseltamivir as soon as possible after flu symptoms appear, such as fever, chills, muscle aches, sore throat, and runny or stuffy nose. Take the oseltamivir capsule with a full glass of water. Shake the oral suspension (liquid) before you measure a dose. Use the dosing syringe provided, or use a medicine dose-measuring device (not a kitchen spoon). Oseltamivir may be taken with food if it upsets your stomach. To treat flu symptoms: Take oseltamivir every 12 hours for 5 days. To prevent flu symptoms: Take oseltamivir every 24 hours for 10 days or as prescribed. Follow your doctor's instructions. Read and carefully follow any Instructions for Use provided with your medicine. Ask your doctor or pharmacist if you do not understand these instructions. Use this medicine for the full prescribed length of time, even if your symptoms quickly improve. Tell your doctor if your symptoms do not improve, or if they get worse. Store oseltamivir capsules at room temperature away from moisture and heat. Store oseltamivir liquid in the refrigerator but do not freeze. Throw away any unused liquid after 17 days. The liquid may also be stored at cool room temperature for up to 10 days What happens if I miss a dose? Use the medicine as soon as you can, but skip the missed dose if your next dose is due in less than2 hours. Do not use two doses at one time. What happens if I overdose? Seek emergency medical attention or call the Poison Help line at . What should I avoid while taking oseltamivir? Do not use a nasal flu vaccine (FluMist) within 48 hours after taking oseltamivir. Oseltamivir may interfere with the drug action of FluMist, making the vaccine less effective. Follow your doctor's instructions. What are the possible side effects of oseltamivir? Get emergency medical help if you have signs of an allergic reaction (hives, difficult breathing, swelling in your face or throat) or a severe skin reaction (fever, sore throat, burning eyes, skin pain, red or purple skin rash with blistering and peeling). Some people using oseltamivir (especially children) have had sudden unusual changes in mood or behavior. It is not certain that oseltamivir is the exact cause of these symptoms. Even without using oseltamivir, anyone with influenza can have neurologic or behavioral symptoms. Call your doctor right away if the person using this medicine has: sudden confusion; tremors or shaking; unusual behavior; or hallucinations (hearing or seeing things that are not there). Common side effects may include: nausea, vomiting; headache; or pain. This is not a complete list of side effects and others may occur. Call your doctor for medical advice about side effects. You may report side effects to FDA at 6-367-QXE-4599. What other drugs will affect oseltamivir? Other drugs may affect oseltamivir, including prescription and xlnc-clp-xxzgjij medicines, vitamins, and herbal products. Tell your doctor about all your current medicines and any medicine you start or stop using. Where can I get more information? Your pharmacist can provide more information about oseltamivir. Remember, keep this and all other medicines out of the reach of children, never share your medicines with others, and use this medication only for the indication prescribed. Every effort has been made to ensure that the information provided by [employer]. [employer]') is accurate, up-to-date, and complete, but no guarantee is made to that effect. Drug information contained herein may be time sensitive. [employer] information has been compiled for use by healthcare practitioners and consumers in the [place] and therefore [employer] does not warrant that uses outside of the [place] are appropriate, unless specifically indicated otherwise. [employer] drug information does not endorse drugs, diagnose patients or recommend therapy. [employer] drug information isan informational resource designed to assist licensed healthcare practitioners in caring for their p atients and/or to serve consumers viewing this service as a supplement to, and not a substitute for, the expertise, skill, knowledge and judgment of healthcare practitioners. The absence of a warningfor a given drug or drug combination in no way should be construed to indicate that the drug or drug combination is safe, effective or appropriate for any given patient. [employer] does not assume any responsibility for any aspect of healthcare administered with the aid of information [employer] provides. The information contained herein is not intended to cover all possible uses, directions, precautions, warnings, drug interactions, allergic reactions, or adverse effects. If you have questions about the drugs you are taking, check with your doctor, nurse or pharmacist. Copyright 5393-3811 [employer]. Version: 12.. Revision Date: 06/23/2018. Education Materials Influenza, Adult Influenza is also called the flu. It is an infection in the lungs, nose, and throat (respiratory tract). It is caused by a virus. The flu causes symptoms that are similar to symptoms of a cold. It also causes a high fever and body aches. The flu spreads easily from person to person (is contagious). Getting a flu shot (influenza vaccination) every year is the best way to prevent the flu. What are the causes? This condition is caused by the influenza virus. You can get the virus by: Breathing in droplets that are in the air from the cough or sneeze of a person who has the virus. Touching something that has the virus on it (is contaminated) and then touching your mouth, nose, or eyes. What increases the risk? Certain things may make you more likely to get the flu. These include: Not washing your hands often. Having close contact with many people during cold and flu season. Touching your mouth, eyes, or nose without first washing your hands. Not getting a flu shot every year. You may have a higher risk for the flu, along with serious problems such as a lung infection (pneumonia), if you: Are older than 65. Are . Have a weakened disease-fighting system (immune system) because of a disease or taking certain medicines. Have a long-term (chronic) illness, such as: ? Heart, kidney, or lung disease. ? Diabetes. ? Asthma. Have a liver disorder. Are very overweight (morbidly obese). Have anemia. This is a condition that affects your red blood cells. What are the signs or symptoms? Symptoms usually begin suddenly and last 4 14 days. They may include: Fever and chills. Headaches, body aches, or muscle aches. Sore throat. Cough. Runny or stuffy (congested) nose. Chest discomfort. Not wanting to eat as much as normal (poor appetite). Weakness or feeling tired (fatigue). Dizziness. Feeling sick to your stomach (nauseous) or throwing up (vomiting). How is this treated? If the flu is found early, you can be treated with medicine that can help reduce how bad the illness is and how long it lasts (antiviral medicine). This may be given by mouth (orally) or through an IV tube. Taking care of yourself at home can help your symptoms get better. Your doctor may suggest: Taking ptbn-pvj-zrxpsil medicines. Drinking plenty of fluids. The flu often goes away on its own. If you have very bad symptoms or other problems, you may be treated in a hospital. Follow these instructions at home: Activity Rest as needed. Get plenty of sleep. Stay home from work or school as told by your doctor. ? Do not leave home until you do not have a fever for 24 hours without taking medicine. ? Leave home only to visit your doctor. Eating and drinking Take an ORS (oral rehydration solution). This is a drink that is sold at pharmacies and stores. Drink enough fluid to keep your pee (urine) pale yellow. Drink clear fluids in small amounts as you are able. Clear fluids include: ? Water. ? Ice chips. ? Fruit juice that has water added (diluted fruit juice). ? Low-calorie sports drinks. Eat bland, udfh-oz-wgcubg foods in small amounts as you are able. These foods include: ? Bananas. ? Applesauce. ? Rice. ? Lean meats. ? Grottoes. ? Crackers. Do not eat or drink: ? Fluids that have a lot of sugar or caffeine. ? Alcohol. ? Spicy or fatty foods. General instructions Take gjnu-pdt-fhehbys and prescription medicines only as told by your doctor. Use a cool mist humidifier to add moisture to the air in your home. This can make it easier for youto breathe. Cover your mouth and nose when you cough or sneeze. Wash your hands with soap and water often, especially after you cough or sneeze. If you cannot use soap and water, use alcohol-based hand drop worker. Keep all follow-up visits as told by your doctor. This is important. How is this prevented? Get a flu shot every year. You may get the flu shot in late summer, fall, or winter. Ask your doctor when you should get your flu shot. Avoid contact with people who are sick during fall and winter (cold and flu season). Contact a doctor if: You get new symptoms. You have: ? Chest pain. ? Watery poop (diarrhea). ? A fever. Your cough gets worse. You start to have more mucus. You feel sick to your stomach. You throw up. Get help right away if you: Have shortness of breath. Have trouble breathing. Have skin or nails that turn a bluish color. Have very bad pain or stiffness in your neck. Get a sudden headache. Get sudden pain in your face or ear. Cannot eat or drink without throwing up. Summary Influenza (the flu) is an infection in the lungs, nose, and throat. It is caused by a virus. Take nyph-kmu-ypyjvwd and prescription medicines only as told by your doctor. Getting a flu shot every year is the best way to avoid getting the flu. This information is not intended to replace advice given to you by your health care provider. Make sure you discuss any questions you have with your health care provider. Document Released: 06/24/2009 Document Revised: 03/03/2019 Document Reviewed: 03/03/2019 [employer] Patient Education 2020 [employer] Additional Information VACCINATE! IT SAVES LIVES! Members of the community who have not yet received the COVID-19 vaccine and would like to receive it can visit one of [facility] vaccine clinics. There are many vaccine clinic locations within the [facility]. For locations and available times, please visit https://gettheshot.coronavirus.[place].gov/. It is important to note that some COVID mobile vaccine clinics are held outdoors and may be canceled in rainy or stormy conditions. To learn more about pediatric vaccinations (ages 5-11), we invite you to visit the [employer] webpage. [email or web address]/[email or web address] stions.htmlTo learn more about the COVID-19 vaccine, we invite you to visit the CDC website for a list of frequently asked questions.https://www.cdc.gov/coronavirus/2019-ncov/vaccines/faq.html web care [facility] Patient Portal Access Instructions: Stay connected with your healthcare team and access your personal medical information anytime with the web care [facility] Patient Portal. Please follow the directions below to create your web care [facility] account: 1.Access the email account you provided upon registration to the hospital/physician office.2.Look for an invitation email from [facility].3.Open the email and access the invitation link: AcceptInvitation to [facility].4.Fill in the required ellis to create your account. To access your account, visit [email or web address]. Click the blue button labeled Access Patient Portal and then log in with the username and password that you created in the steps above. You will be able to view your test results, lab results, a summary of your visits, upcoming appointments and more. There is also a convenient messaging option where you can send secure messages to your [facility]. In addition, you will have the ability to download any documents or summaries to your computer and/or send the information securely to a physician. Remember that your healthcare information is confidential, so carefully consider who you will allowto register on the [facility] for access to your information. You can also access the [facility] Patient Portal on the [place] [facility] eris. Simply click on Patient Portal and then log into your account. If you would like to receive a full copy of your medical records, please contact the [facility] Medical Records Department by calling [phone], Friday through Friday between 8 a.m. and 4:30 p.m. HOW TO SAFELY DISPOSE OF PRESCRIPTION MEDICATIONS Please use one of the following methods to safely dispose of your unused medications. 1.Use a drug disposal kit: the drug disposal pouch allows you to safely discard your old and unuseddrugs. Ask your nurse to give you one when you are discharged.2.Visit a local take-back location: Many local pharmacies and police departments have programs that collect old and unwanted prescriptiondrugs. Call your local pharmacy or go to http://4s91.com.Codoon/3T7Ql5z to find one close to you.3.Make use of household items: Use cat litter or old coffee grounds to dispose medications if other options arenot available. Mix your drugs with these household products, seal them in an airtight container andthrow it into the garbage. Call [facility]: [phone] to be sure your drugs can be disposed of in this way. Some medicines may require a different approach.4.Never flush your medications down the toilet. IF YOU HAVE BEEN PRESCRIBED AN OPIOID FOR PAIN If you have been prescribed an opioid (such as hydrocodone, oxycodone or morphine), it is critical to understand the possible side effects and risks of opioid pain medications. Even when taken as directed, opioids can have several side effects including: Tolerance, meaning you might need to take more of a medication for the same pain relief. Nausea, vomiting and/or constipation. Sleepiness, dizziness, dry mouth, confusion, depression or itching. Physical dependence, meaning you have withdrawal symptoms when a medication is stopped, can develop within a few days. KNOW YOUR RESPONSIBILITIES It is important to know exactly how much and how often to take the opioid pain medications you are prescribed. Never take opioids in higher amounts or more often than prescribed. Do not combine opioids with alcohol or other drugs that cause drowsiness, such as benzodiazepines, also known as benzos, including diazepam and alprazolam, muscle relaxants or sleep aids. Never sell or share prescription opioids. This is illegal. Store opioids in a secure place and out of reach of others (including children, family, friends and visitors). The last page of this document has been signed and retained as a CHART COPY. Signatures Patient Education Materials Influenza, Adult, Ugzh-et-Sobk Medication Leaflets oseltamivir My discharge plan and instructions have been reviewed and explained to me and I,DONNA MCMAHON understand my current condition and have read and understand these discharge instructions. I have received a written copy of the plan/instructions. If I have questions, I am aware that I should contact my doctor. 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 Patient presented due to concerns for influenza. She has been taking motrin and tylenol at home to control her fever but did not fee l that her symptoms were improving. Other family members in the home are also sick with the same illness. Patient denies any chills, shortness of breath, chest pain, abdominal pain, nausea or dysuria. She did report a nonproductive cough. In the emergency department, chest x-ray revealed no acute abnormality. CBC was unremarkable. BMP significant for glucose 205 and sodium 135. Troponin negative. Flu A swab positive. COVID-19, RSV andFlu B negative. Patient was administered 2 liters of NS and 650 mg tylenol PO in the ED. Patient was noted to be tachycardic in the 120's and 130's on the monitor in the ED. The ED physician recommended admission for further monitoring. Patient was transferred to medical surgical unit for observation. We will continue NS @ 100cc/hr x 24 hours. We will start Tamiflu 75 mg PO BID. Continue antipyretics for comfort. Start duoneb aerosols as needed for shortness of breath/wheezing. Repeat CBC and BMP in the am. Patient seen and evaluated this morning while resting in bed. She states that she is feeling betterthis morning and has no complaints. Her tachycardia has improved with IV fluids and has been in thelow 100's overnight. Her oxygen saturations are excellent in the upper 90's on room air. Patient denies any new problems or concerns this morning. She is agreeable to discharge home on Tamiflu. Patient encouraged to drink plenty of fluids at home and continue Tylenol/Motrin for fever. All questionsanswered. Review of Systems Review of Systems: Reviewed in detail, including general health, HEENT, cardiovascular, respiratory, gastrointestinal, genitourinary, endocrine, musculoskeletal, neurologic, vascular, skin, and psychiatric. All are negative except for those listed in the History of Present Illness. Physical Exam Vitals and Measurements T: 38.0 C (Oral) TMIN: 37.7 C (Oral) TMAX: 39.6 C (Oral) HR: 104 RR: 17 BP: 134/76 SpO2: 99% HT: 165.5 cm WT: 109.7 kg BMI: 40.05 Weight Dosing Weight: 109.7 kg (11/05/24) Dosing Weight: 109.1 kg (11/05/24) General: No acute distress. Patient is alert and appropriate. Skin: No rash. Skin is warm, dry and intact. HEENT: Head is normocephalic, atraumatic. Pupils are equal, round and reactive. Neck: Supple. No lymphadenopathy, thyromegaly. Lungs: Bilaterally clear but diminished without crepitation or wheeze. Unlabored. Heart: Heart is regular rhythm, S1, S2. No murmurs, gallops or rubs. Abdomen: Abdomen is soft, nontender, obese. Bowels sounds present in all quadrants. Extremities: No clubbing, cyanosis, or edema. Peripheral pulses palpable. No calf tenderness. Neurological: Patient is awake and alert to person, place and time. Following simple commands, moving all extremities. Lab Results 11/06 05:36 WBC: 7.4 Hgb: 14.1 Hct: 40.7 Platelet: 217 Neutrophil %: 50.0 Glucose Level: 132 H Sodium Level: 140 Potassium Level: 3.7 BUN: 4 L Creatinine Lvl (s): 0.80 11/05 17:18 WBC: 7.5 Hgb: 16.0 Hct: 45.9 Platelet: 235 Neutrophil %: 70.7 Glucose Level: 205 H Sodium Level: 135 L Potassium Level: 4.3 BUN: 6 L Creatinine Lvl (s): 0.94 Imaging Results and Diagnostics XR Chest 1 View Result Date: November 05, 2024 Verified By: TIMOTHY GARRISON MD CLINICAL STATEMENT: IMPRESSION: No acute abnormality is identified. Assessment/Plan 1. Tachycardia Acute, likely secondary to fever from Flu A. Patient given 2 liters of NS in the ED. Continue NS @ 100cc/hr x 24 hours. Continue Tylenol as needed for fever. 2. Influenza A Acute, new onset. Continue Tamiflu 75 mg PO BID for 5 days. 3. Type 2 diabetes mellitus Chronic. ADA diet. Blood glucose goal of 180 or less and avoid hypoglycemia. 4. Asthma Chronic, controlled. Continue duoneb aerosols as needed for shortness of breath/wheezing. DVT prophylaxis with Lovenox sc. Code status: Full Code. Labs, diagnostic test and progress notes reviewed as noted in HPI. Plan of care discussed with patient. All questions answered. Patient verbalizes understanding and is agreeable with plan of care. This case was discussed with collaborating physician, Dr. Wilver Bowie. 60 minutes spent reviewing past diagnostic tests, reviewing lab results, vital sign trends, medicalhistory, reviewing medications and ordering home medications, examining patient, discussed plan of care with care team, collaborating with physician, and documenting in chart. Problem List/Past Medical History Ongoing Asthma Gastric reflux Procedure/Surgical History Eye Myringotomy and insertion of tympanic ventilation tube Medications Home Medications (4) Active albuterol 90 mcg/inh inhalation powder 1 puff(s), PRN, Inhalation, q4h MetFORMIN (Eqv-Glucophage XR) 500 mg oral tablet, EXTENDED RELEASE 500 mg = 1 tab(s), Oral, qDay Tamiflu 75 mg oral capsule 75 mg = 1 cap(s), Oral, BID Valtrex 1 g oral tablet 1 gram(s) = 1 tab(s), Oral, q24h Allergies amoxicillin rash vancomycin Social History Smoking Status - 04/30/2018 Never smoker Alcohol - No Risk, 04/30/2018 Use: Never., 11/29/2019 Substance Abuse - No Risk, 04/30/2018 Use: Past. Type: Marijuana., 12/15/2021 Tobacco - Denies Tobacco Use, 07/07/2019 Nicotine Use: Never (less than 100 in lifetime)., 11/29/2019 Family History Family history is unknown Immunizations haemophilus b conjugate (PRP-T) vaccine: 0 unknown unit (02/02/02) haemophilus b conjugate (PRP-T) vaccine: 0 unknown unit (01) haemophilus b-hepatitis B vaccine: 0 unknown unit (08/05/02) haemophilus b-hepatitis B vaccine: 0 unknown unit (01) hepatitis A adult vaccine: 0 unknown unit (05/01/07) hepatitis A pediatric vaccine: 0 unknown unit (04/11/10) hepatitis B pediatric vaccine: 0 unknown unit (01) Human Papillomavirus Quadval: 0 unknown unit (05/09/16) Human Papillomavirus Quadval: 0 unknown unit (05/11/14) measles/mumps/rubella virus vaccine: 0 unknown unit (05/05/06) measles/mumps/rubella virus vaccine: 0 unknown unit (08/05/02) meningococcal conjugate vaccine: 0.5 unknown unit (07/07/19) meningococcal conjugate vaccine: 0 unknown unit (05/11/14) meningococcal group B vaccine: 0.5 unknown unit (07/07/19) poliovirus vaccine, inactivated: 0 unknown unit (05/05/06) poliovirus vaccine, inactivated: 0 unknown unit (01/06/03) poliovirus vaccine, inactivated: 0 unknown unit (01) poliovirus vaccine, inactivated: 0 unknown unit (01) tetanus/diphth/pertuss (Tdap) adult/adol: 0 unknown unit (05/11/14) varicella virus vaccine: 0 unknown unit (05/01/07) varicella virus vaccine: 0 unknown unit (01/06/03) Code Status Code Status - Ordered -- 11/05/24 19:50:00 EST, Full Code, Constant Order Digitally Signed by CLAUDIA LEARY APRN-CUCO on 11/06/2024 11:57 AM [facility]02-07-2025 Note* Exam Date Time Procedure Performing Provider Status 11/05/24 5:22 PM EKG [ED AOH] - CV WILVER BANERJEE DO; [facility] (Verified) ECG Final Report Sinus tachycardia Borderline repolarization abnormality Compared to ECG at 12/15/2021 21:04:14 Electronic Signature: WILVER BANERJEE DO 11/05/2024 18:36:51 [facility]02-07-2025 Note* Exam Date Time Procedure Performing Provider Status 11/05/24 4:57 PM XR Chest 1 View TIMOTHY GARRISON MD; Auth (Verified) [id number] ORIGINAL EXAMINATION: ONE XRAY VIEW OF THE CHEST 11/05/2024 4:57 pm COMPARISON: 06/28/2021 HISTORY: ORDERING SYSTEM PROVIDED HISTORY: Reason for Exam: Cough, fever FINDINGS: The cardiomediastinal silhouette appears normal. There is no focal consolidation. There is no pulmonary edema. There is no evidence of pleural effusion. There is no evidence of pneumothorax. No fracture is identified. IMPRESSION: No acute abnormality is identified. Interpreted by: Timothy Garrison Preliminary Report By: Timothy Garrison Electronically signed By Timothy Garrison Dictated Date: 11/05/2024 5:01:26 PM Prelim Date: 11/05/2024 5:01:49 PM Sign Date: 11/05/2024 5:01:49 PM Ordering Provider: WILL HECTOR [facility]02-07-2025 HCoV 229E RNA VIRGILIO+non-probe Ql (Nph) Not Detected *NA* (11/05/24 4:30 PM) Auto Viro/Sero [id number] Telephone encounter Note* Telephone Encounter - Carol Glasgow LPN - 11/04/2024 9:11 AM EST My chart messages sent to pt via [employer] G[employer]ra. Pt reviewed @ 1:37 am 11/03 Carol Glasgow LPN [facility]02-06-2025 Miscellaneous Notes* Telephone Encounter - Carol Glasgow LPN - 11/04/2024 9:11 AM EST My chart messages sent to pt via [employer]. Pt reviewed @ 1:37 am 11/03 Carol Glasgow LPN * Telephone Encounter - Marc Eubanks RN - 11/02/2024 11:50 AM EST Pt reports she was just seen in [facility] and provider told her would send Rx's for a cream and suppository for her yeast infection. Reports [facility] pharmacy has not received them yet. Please advise patient. [facility] Telephone encounter Note * Telephone Encounter - Marc Eubanks, RN - 11/02/2024 11:50 AM EST Pt reports she was just seen in [facility] and provider told her would send Rx's for a cream and suppository for her yeast infection. Reports [facility] pharmacy has not received them yet. Please advise patient. [facility]02-04-2025 NoteHNO ID: [id number] Author: PARADISE CHAMBERS APRN.DIVEMASTER Service: ? Author Type: Nurse Practitioner Type: Progress Notes Filed: 11/02/2024 12:08 Note Text: This note was created using ReDoc Softwareriter. Subjective Donna Mcmahon is a 24 year old female. 24 year old female with PMH asthma and DM presents for vaginal complaints. Acute onset around October 24 +vaginal discharge +frequency Burning of skin with urinating She was evaluated At [facility] [place] October 24. States I think they gave me antifungal Citing she was given x 2 medicines , cannot recall name (Review of medical record reveals she was prescribed Flagyl and Doxy) Of note, had unprotected sex on 10/19/24 LMP-, endorsses irregular menses at baseline Denies abdominal pain Denies N/V/D Denies skin rash or lesions. The history is provided by the patient. No teller vault was used. Vaginal Problem This is a new problem. The current episode started 1 to 4 weeks ago. The problem occurs constantly. The problem has been waxing and waning. Associated symptoms include urinary symptoms. Pertinent negatives include no abdominal pain, anorexia, arthralgias, change in bowel habit, chest pain, chills, congestion, coughing, diaphoresis, fatigue, fever, headaches, joint swelling, myalgias, nausea, neck pain, numbness, rash, sore throat, swollen glands, vertigo, visual change, vomiting or weakness. Exacerbated by: urinating. Treatments tried: Flagyl and Doxy. The treatment provided no relief. PAST MEDICAL HISTORY Diagnosis Date Mild intermittent asthma without complication PCOS (polycystic ovarian syndrome) PAST SURGICAL HISTORY Procedure Laterality Date STRABISMUS SURG PT W SCAR EO MUSCL ALLERGIES Amoxicillin-Pot Clavulanate and Vancomycin MEDICATIONS doxycycline hyclate (VIBRAMYCIN) 100 mg capsule metroNIDAZOLE (FLAGYL) 500 mg tablet metFORMIN ER (GLUCOPHAGE XR) 500 mg 24 hr tablet Take 1 tablet by mouth daily with breakfast. albuterol HFA (PROVENTIL HFA, VENTOLIN HFA) 90 mcg/actuation inhaler Inhale 2 Puffs as instructed every 4 hours as needed. (Patient taking differently: Inhale 2 Puffs as instructed every 4 hours as needed for wheezing/shortness of breath.) albuterol (PROVENTIL) 2.5 mg /3 mL (0.083 %) nebulizer solution Use 3 mL via nebulizer every 4 hours as needed for wheezing/shortness of breath. valACYclovir (VALTREX) 500 mg tablet Take 1,000 mg by mouth as needed (outbreaks). Lancets lancets Test blood sugar(s) one times daily. Dx: Type 2 DM - Controlled E11.9 Insulin: No blood sugar diagnostic (BLOOD GLUCOSE TEST) test strip Test blood sugar(s) one times daily. Dx: Type 2 DM - Controlled E11.9 Insulin: No medroxyPROGESTERone (DEPO-PROVERA) 150 mg/mL (Patient not taking: Reported on 10/21/2024) cetirizine (ZYRTEC) 10 mg tablet Take 1 tablet by mouth once daily. (Patient taking differently: Take 10 mg by mouth as needed for cold/allergy symptoms.) FAMILY HISTORY Problem Relation Age of Onset Hypertension Father Social History Tobacco Use Smoking status: Never Smokeless tobacco: Never Vaping Use Vaping status: Never Used Substance Use Topics Alcohol use: Not Currently Drug use: Never Review of Systems Constitutional: Negative for chills, diaphoresis, fatigue and fever. HENT: Negative for congestion and sore throat. Eyes: Negative for pain, discharge and itching. Respiratory: Negative for apnea, cough, choking and chest tightness. Cardiovascular: Negative for chest pain. Gastrointestinal: Negative for abdominal pain, anorexia, change in bowel habit, nausea and vomiting. Genitourinary: Positive for dysuria and vaginal discharge. Negative for difficulty urinating, frequency and urgency. Musculoskeletal: Negative for arthralgias, joint swelling, myalgias and neck pain. Skin: Negative for color change, pallor and rash. Allergic/Immunologic: Negative for environmental allergies, food allergies and immunocompromised state. Neurological: Negative for dizziness, vertigo, facial asymmetry, weakness, numbness and headaches. Hematological: Negative for adenopathy. Does not bruise/bleed easily. Psychiatric/Behavioral: Negative for agitation and behavioral problems. Objective BP 118/70 Pulse 78 Temp 36.9 ?C (98.4 ?F) Resp 16 Wt 114.1 kg (251 lb 8.7 oz) LMP (LMP Unknown) SpO2 98% BMI 41.86 kg/m? Physical Exam Vitals and nursing note reviewed. Constitutional: General: She is not in acute distress. Appearance: Normal appearance. She is normal weight. She is not ill-appearing, toxic-appearing or diaphoretic. HENT: Head: Normocephalic and atraumatic. Right Ear: Ear canal and external ear normal. Left Ear: Ear canal and external ear normal. Nose: Nose normal. No congestion or rhinorrhea. Mouth/Throat: Mouth: Mucous membranes are moist. Pharynx: No oropharyngeal exudate or posterior oropharyngeal erythema. Eyes: General: Right ey (more content not included)...[facility]02-04-2025 History of Present illness Narrative* Paradise Chambers APRN.DIVEMASTER - 11/02/2024 10:33 AM EST Images from the original note were not included. This note was created using ReDoc Softwareriter. Subjective Donna Mcmahon is a 24 year old female. 24 year old female with PMH asthma and DM presents for vaginal complaints. Acute onset around October 24 +vaginal discharge +frequency Burning of skin with urinating She was evaluated At [facility] October 24. States I think they gave me antifungal Citing she was given x 2 medicines , cannot recall name (Review of medical record reveals she was prescribed Flagyl and Doxy) Of note, had unprotected sex on 10/19/24 LMP-, endorsses irregular menses at baseline Denies abdominal pain Denies N/V/D Denies skin rash or lesions. The history is provided by the patient. No teller vault was used. Vaginal Problem This is a new problem. The current episode started 1 to 4 weeks ago. The problem occurs constantly.The problem has been waxing and waning. Associated symptoms include urinary symptoms. Pertinent negatives include no abdominal pain, anorexia, arthralgias, change in bowel habit, chest pain, chills, congestion, coughing, diaphoresis, fatigue, fever, headaches, joint swelling, myalgias, nausea, neckpain, numbness, rash, sore throat, swollen glands, vertigo, visual change, vomiting or weakness. Exacerbated by: urinating. Treatments tried: Flagyl and Doxy. The treatment provided no relief. PAST MEDICAL HISTORY Diagnosis Date Mild intermittent asthma without complication PCOS (polycystic ovarian syndrome) PAST SURGICAL HISTORY Procedure Laterality Date STRABISMUS SURG PT W SCAR EO MUSCL ALLERGIES Amoxicillin-Pot Clavulanate and Vancomycin MEDICATIONS doxycycline hyclate (VIBRAMYCIN) 100 mg capsule metroNIDAZOLE (FLAGYL) 500 mg tablet metFORMIN ER (GLUCOPHAGE XR) 500 mg 24 hr tablet Take 1 tablet by mouth daily with breakfast. albuterol HFA (PROVENTIL HFA, VENTOLIN HFA) 90 mcg/actuation inhaler Inhale 2 Puffs as instructed every 4 hours as needed. (Patient taking differently: Inhale 2 Puffs as instructed every 4 hours as needed for wheezing/shortness of breath.) albuterol (PROVENTIL) 2.5 mg /3 mL (0.083 %) nebulizer solution Use 3 mL via nebulizer every 4 hours as needed for wheezing/shortness of breath. valACYclovir (VALTREX) 500 mg tablet Take 1,000 mg by mouth as needed (outbreaks). Lancets lancets Test blood sugar(s) one times daily. Dx: Type 2 DM - Controlled E11.9 Insulin: No blood sugar diagnostic (BLOOD GLUCOSE TEST) test strip Test blood sugar(s) one times daily. Dx: Type 2 DM - Controlled E11.9 Insulin: No medroxyPROGESTERone (DEPO-PROVERA) 150 mg/mL (Patient not taking: Reported on 10/21/2024) cetirizine (ZYRTEC) 10 mg tablet Take 1 tablet by mouth once daily. (Patient taking differently: Take 10 mg by mouth as needed for cold/allergy symptoms.) FAMILY HISTORY Problem Relation Age of Onset Hypertension Father Social History Tobacco Use Smoking status: Never Smokeless tobacco: Never Vaping Use Vaping status: Never Used Substance Use Topics Alcohol use: Not Currently Drug use: Never Review of Systems Constitutional: Negative for chills, diaphoresis, fatigue and fever. HENT: Negative for congestion and sore throat. Eyes: Negative for pain, discharge and itching. Respiratory: Negative for apnea, cough, choking and chest tightness. Cardiovascular: Negative for chest pain. Gastrointestinal: Negative for abdominal pain, anorexia, change in bowel habit, nausea and vomiting. Genitourinary: Positive for dysuria and vaginal discharge. Negative for difficulty urinating, frequency and urgency. Musculoskeletal: Negative for arthralgias, joint swelling, myalgias and neck pain. Skin: Negative for color change, pallor and rash. Allergic/Immunologic: Negative for environmental allergies, food allergies and immunocompromised state. Neurological: Negative for dizziness, vertigo, facial asymmetry, weakness, numbness and headaches. Hematological: Negative for adenopathy. Does not bruise/bleed easily. Psychiatric/Behavioral: Negative for agitation and behavioral problems. Objective BP 118/70 Pulse 78 Temp 36.9 C (98.4 F) Resp 16 Wt 114.1 kg (251 lb 8.7 oz) LMP (LMP Unknown) SpO2 98% BMI 41.86 kg/m Physical Exam Vitals and nursing note reviewed. Constitutional: General: She is not in acute distress. Appearance: Normal appearance. She is normal weight. She is not ill-appearing, toxic-appearing or diaphoretic. HENT: Head: Normocephalic and atraumatic. Right Ear: Ear canal and external ear normal. Left Ear: Ear canal and external ear normal. Nose: Nose normal. No congestion or rhinorrhea. Mouth/Throat: Mouth: Mucous membranes are moist. Pharynx: No oropharyngeal exudate or posterior oropharyngeal erythema. Eyes: General: Right eye: No discharge. Left eye: No discharge. Extraocular Movements: Extraocular movements intact. Conjunctiva/sclera: Conjunctivae normal. Pupils: Pupils are equal, round, and reactive to light. Cardiovascular: Rate and Rhythm: Normal rate and regular rhythm. Pulses: Normal pulses. Heart sounds: Normal heart sounds. No murmur heard. No friction rub. Pulmonary: Effort: Pulmonary effort is normal. No respiratory distress. Breath sounds: Normal breath sounds. No stridor. No wheezing, rhonchi or rales. Chest: Chest wall: No tenderness. Abdominal: General: Abdomen is flat. There is no distension. Palpations: Abdomen is soft. There is no mass. Tenderness: There is no abdominal tenderness. There is no right CVA tenderness, left CVA tenderness, guarding or rebound. Hernia: No hernia is present. Genitourinary: Comments: Participation of a fellow, resident, medical student, or advanced practice provider student in performing the sensitive examination was discussed with the patient or authorized wire rope sales representative. The patient or authorized wire rope sales representative has agreed to proceed with the sensitive examination. (Sensitive examination includes inspection and/or palpation of the breasts, pelvis, prostate and anorectal regions) Musculoskeletal: General: No swelling, tenderness, deformity or signs of injury. Normal range of motion. Cervical back: Normal range of motion and neck supple. No rigidity. Right lower leg: No edema. Left lower leg: No edema. Lymphadenopathy: Cervical: No cervical adenopathy. Skin: General: Skin is warm and dry. Coloration: Skin is not jaundiced or pale. Findings: No bruising, erythema, lesion or rash. Neurological: General: No focal deficit present. Mental Status: She is alert and oriented to person, place, and time. Cranial Nerves: No cranial nerve deficit. Sensory: No sensory deficit. Motor: No weakness. Coordination: Coordination normal. Gait: Gait normal. Psychiatric: Mood and Affect: Mood normal. Behavior: Behavior normal. Thought Content: Thought content normal. Judgment: Judgment normal. Assessment and Plan ASSESSMENT/PLAN: 1. Vaginal discharge - ICD9: 623.5, ICD10: N89.8 (primary diagnosis) X a couple weeks Been seen for same at [facility] No relief of symptoms Will provide Diflucan and also topical vaginal suppositories F/U with [facility] - BACTERIAL VAGINOSIS NAAT - UA DIP, URINE (POC) - UA DIP,URINE HCG (POC) - ITZ/TRICHOMONAS NAAT - GONORRHEA/CHLAMYDIA NAAT 2. Dysuria - ICD9: 788.1, ICD10: R30.0 acute - UA positive for glucosuria Blood glucose here 213 - Send urine for culture - Patient education for prevention given - UA DIP, URINE (POC) - UA DIP,URINE HCG (POC) - GONORRHEA/CHLAMYDIA NAAT - BACTERIAL CULTURE, URINE 3. Glucosuria - ICD9: 791.5, ICD10: R81 Blood glucose 213 - GLUCOSE, BLOOD (POC) Paradise Chambers APRN.DIVEMASTER [facility] NoteHNO ID: [id number] Author: GIORGI GROVES APRN.DIVEMASTER Service: ? Author Type: Nurse Practitioner Type: Progress Notes Filed: 10/21/2024 09:35 Note Text: Subjective HPI Nontoxic-appearing female presents urgent care chief complaint possible dental infection. Duration of symptoms 3 days. Associated symptoms painful lump on anterior lower mandibular line. Presents today for evaluation. OTC medications none. Denies any trauma. No difficulty falling. Secretions decreased range of motion neck trismus or swelling elevation of floor of mouth. Past medical history prescription medications allergies reviewed. BP 141/87 Pulse 108 Temp 36.8 ?C (98.3 ?F) Resp 18 Wt 111.3 kg (245 lb 6 oz) LMP (LMP Unknown) SpO2 96% BMI 40.83 kg/m? Hr 90 .Patient presents with: Mouth/Lip Problem: Bottom front gum line painful and swollen x3 days PAST MEDICAL HISTORY Diagnosis Date Mild intermittent asthma without complication PCOS (polycystic ovarian syndrome) PAST SURGICAL HISTORY Procedure Laterality Date STRABISMUS SURG PT W SCAR EO MUSCL ALLERGIES Amoxicillin-Pot Clavulanate and Vancomycin MEDICATIONS blood sugar diagnostic (BLOOD GLUCOSE TEST) test strip Test blood sugar(s) one times daily. Dx: Type 2 DM - Controlled E11.9 Insulin: No albuterol (PROVENTIL) 2.5 mg /3 mL (0.083 %) nebulizer solution Use 3 mL via nebulizer every 4 hours as needed for wheezing/shortness of breath. valACYclovir (VALTREX) 500 mg tablet Take 1,000 mg by mouth as needed (outbreaks). cetirizine (ZYRTEC) 10 mg tablet Take 1 tablet by mouth once daily. (Patient taking differently: Take 10 mg by mouth as needed for cold/allergy symptoms.) Lancets lancets Test blood sugar(s) one times daily. Dx: Type 2 DM - Controlled E11.9 Insulin: No cephALEXin (KEFLEX) 500 mg capsule Take 1 capsule by mouth three times a day for 5 days. metFORMIN ER (GLUCOPHAGE XR) 500 mg 24 hr tablet Take 1 tablet by mouth daily with breakfast. albuterol HFA (PROVENTIL HFA, VENTOLIN HFA) 90 mcg/actuation inhaler Inhale 2 Puffs as instructed every 4 hours as needed. (Patient taking differently: Inhale 2 Puffs as instructed every 4 hours as needed for wheezing/shortness of breath.) medroxyPROGESTERone (DEPO-PROVERA) 150 mg/mL (Patient not taking: Reported on 10/21/2024) FAMILY HISTORY Problem Relation Age of Onset Hypertension Father Social History Tobacco Use Smoking status: Never Smokeless tobacco: Never Vaping Use Vaping status: Never Used Substance Use Topics Alcohol use: Not Currently Drug use: Never Review of Systems Constitutional: Negative for chills, fever and malaise/fatigue. HENT: Negative for congestion, ear discharge, ear pain, sinus pain and sore throat. Eyes: Negative for blurred vision, pain, discharge and redness. Respiratory: Negative for cough, hemoptysis, sputum production, shortness of breath, wheezing and stridor. Cardiovascular: Negative for chest pain. Gastrointestinal: Negative for abdominal pain, diarrhea, nausea and vomiting. Musculoskeletal: Negative for myalgias. Skin: Negative for itching and rash. Neurological: Negative for dizziness and headaches. Objective Physical Exam Constitutional: General: She is not in acute distress. Appearance: She is not diaphoretic. HENT: Head: Normocephalic. Jaw: No trismus, tenderness, swelling or pain on movement. Mouth/Throat: Mouth: Mucous membranes are moist. Dentition: Gingival swelling present. No dental tenderness, dental caries or dental abscesses. Pharynx: Oropharynx is clear. Uvula midline. No pharyngeal swelling, oropharyngeal exudate, posterior oropharyngeal erythema or uvula swelling. Eyes: Conjunctiva/sclera: Conjunctivae normal. Pupils: Pupils are equal, round, and reactive to light. Cardiovascular: Rate and Rhythm: Normal rate and regular rhythm. Heart sounds: Normal heart sounds. Pulmonary: Effort: Pulmonary effort is normal. No tachypnea, accessory muscle usage or respiratory distress. Breath sounds: Normal breath sounds. No stridor. No wheezing, rhonchi or rales. Abdominal: General: There is no distension. Palpations: Abdomen is soft. Tenderness: There is no abdominal tenderness. There is no guarding or rebound. Musculoskeletal: Cervical back: Normal range of motion and neck supple. No edema, erythema, rigidity or tenderness. No pain with movement. Normal range of motion. Lymphadenopathy: Cervical: No cervical adenopathy. Skin: General: Skin is warm and dry. Neurological: Mental Status: She is alert and oriented to person, place, and time. ASSESSMENT/PLAN: 1. Dental infection - ICD9: 522.4, ICD10: K04.7 Diagnosed dental infection. Gingival swelling and erythema. Placed on Keflex. Referred to dentistry. Patient was educated on supportive therapies. Patient will follow up with primary care provider as needed. Patient was instructed to immediately proceed to emergency kevin (more content not included)...[facility] 10-21-2024 History of Present illness Narrative* Giorgi Groves APRN.[facility] - 10/21/2024 9:21 AM EST Subjective HPI Nontoxic-appearing female presents urgent care chief complaint possible dental infection. Duration of symptoms 3 days. Associated symptoms painful lump on anterior lower mandibular line. Presents today for evaluation. OTC medications none. Denies any trauma. No difficulty falling. Secretions decreased range of motion neck trismus or swelling elevation of floor of mouth. Past medical history prescription medications allergies reviewed. BP 141/87 Pulse 108 Temp 36.8 C (98.3 F) Resp 18 Wt 111.3 kg (245 lb 6 oz) LMP (LMP Unknown) SpO2 96% BMI 40.83 kg/m Hr 90 .Patient presents with: Mouth/Lip Problem: Bottom front gum line painful and swollen x3 days PAST MEDICAL HISTORY Diagnosis Date Mild intermittent asthma without complication PCOS (polycystic ovarian syndrome) PAST SURGICAL HISTORY Procedure Laterality Date STRABISMUS SURG PT W SCAR EO MUSCL ALLERGIES Amoxicillin-Pot Clavulanate and Vancomycin MEDICATIONS blood sugar diagnostic (BLOOD GLUCOSE TEST) test strip Test blood sugar(s) one times daily. Dx: Type 2 DM - Controlled E11.9 Insulin: No albuterol (PROVENTIL) 2.5 mg /3 mL (0.083 %) nebulizer solution Use 3 mL via nebulizer every 4 hours as needed for wheezing/shortness of breath. valACYclovir (VALTREX) 500 mg tablet Take 1,000 mg by mouth as needed (outbreaks). cetirizine (ZYRTEC) 10 mg tablet Take 1 tablet by mouth once daily. (Patient taking differently: Take 10 mg by mouth as needed for cold/allergy symptoms.) Lancets lancets Test blood sugar(s) one times daily. Dx: Type 2 DM - Controlled E11.9 Insulin: No cephALEXin (KEFLEX) 500 mg capsule Take 1 capsule by mouth three times a day for 5 days. metFORMIN ER (GLUCOPHAGE XR) 500 mg 24 hr tablet Take 1 tablet by mouth daily with breakfast. albuterol HFA (PROVENTIL HFA, VENTOLIN HFA) 90 mcg/actuation inhaler Inhale 2 Puffs as instructed every 4 hours as needed. (Patient taking differently: Inhale 2 Puffs as instructed every 4 hours as needed for wheezing/shortness of breath.) medroxyPROGESTERone (DEPO-PROVERA) 150 mg/mL (Patient not taking: Reported on 10/21/2024) FAMILY HISTORY Problem Relation Age of Onset Hypertension Father Social History Tobacco Use Smoking status: Never Smokeless tobacco: Never Vaping Use Vaping status: Never Used Substance Use Topics Alcohol use: Not Currently Drug use: Never Review of Systems Constitutional: Negative for chills, fever and malaise/fatigue. HENT: Negative for congestion, ear discharge, ear pain, sinus pain and sore throat. Eyes: Negative for blurred vision, pain, discharge and redness. Respiratory: Negative for cough, hemoptysis, sputum production, shortness of breath, wheezing and stridor. Cardiovascular: Negative for chest pain. Gastrointestinal: Negative for abdominal pain, diarrhea, nausea and vomiting. Musculoskeletal: Negative for myalgias. Skin: Negative for itching and rash. Neurological: Negative for dizziness and headaches. Objective Physical Exam Constitutional: General: She is not in acute distress. Appearance: She is not diaphoretic. HENT: Head: Normocephalic. Jaw: No trismus, tenderness, swelling or pain on movement. Mouth/Throat: Mouth: Mucous membranes are moist. Dentition: Gingival swelling present. No dental tenderness, dental caries or dental abscesses. Pharynx: Oropharynx is clear. Uvula midline. No pharyngeal swelling, oropharyngeal exudate, posterior oropharyngeal erythema or uvula swelling. Eyes: Conjunctiva/sclera: Conjunctivae normal. Pupils: Pupils are equal, round, and reactive to light. Cardiovascular: Rate and Rhythm: Normal rate and regular rhythm. Heart sounds: Normal heart sounds. Pulmonary: Effort: Pulmonary effort is normal. No tachypnea, accessory muscle usage or respiratory distress. Breath sounds: Normal breath sounds. No stridor. No wheezing, rhonchi or rales. Abdominal: General: There is no distension. Palpations: Abdomen is soft. Tenderness: There is no abdominal tenderness. There is no guarding or rebound. Musculoskeletal: Cervical back: Normal range of motion and neck supple. No edema, erythema, rigidity or tenderness. No pain with movement. Normal range of motion. Lymphadenopathy: Cervical: No cervical adenopathy. Skin: General: Skin is warm and dry. Neurological: Mental Status: She is alert and oriented to person, place, and time. ASSESSMENT/PLAN: 1. Dental infection - ICD9: 522.4, ICD10: K04.7 Diagnosed dental infection. Gingival swelling and erythema. Placed on Keflex. Referred to dentistry. Patient was educated on supportive therapies. Patient will follow up with primary care provider as needed. Patient was instructed to immediately proceed to emergency room for any new, worsening, or symptoms lasting longer than anticipated. The patient's clinical presentation is otherwise unremarkable at this time. Based on exam and clinical finding, the patient is stable for discharge. Plan of care was discussed with patient. Patient verbalizes understanding and agrees to plan of care. This note was generated using PassKit software. It may contain errors in wording, punctuation, or spelling. Giorgi Groves APRN.[facility] documented in this encounterCommunity [facility]12-04-[facility] Instructions* Patient Instructions* Michelle Mcwilliams APRN.[facility] - 09/01/2024 3:38 PM EST ASSESSMENT/PLAN: 1. Pelvic pain - ICD9: [id number], ICD10: R10.2 (primary diagnosis) - UA DIP, URINE (POC) - UA DIP,URINE HCG (POC)- negative in office. Office Visit on 09/01/2024 Component Date Value Ref Range Status GLUCOSE UA (POCT) 09/01/2024 500 (A) Negative mg/dL Final BILIRUBIN UA (POCT) 09/01/2024 Negative Negative Final KETONE UA (POCT) 09/01/2024 Negative Negative mg/dL Final SPECIFIC GRAVITY UA (POCT) 09/01/2024 >=1.030 1.005 - 1.030 Final HEMOGLOBIN/BLOOD UA (POCT) 09/01/2024 Negative Negative Final PH UA (POCT) 09/01/2024 5.5 4.5 - 8.0 Final PROTEIN UA (POCT) 09/01/2024 30 (A) Negative mg/dL Final UROBILINOGEN UA (POCT) 09/01/2024 0.2 Normal E.U./dL Final NITRITE UA (POCT) 09/01/2024 Negative Negative Final LEUKOCYTES UA (POCT) 09/01/2024 Negative Negative Final COLOR UA (POCT) 09/01/2024 Yellow Final CLARITY UA (POCT) 09/01/2024 Clear Final Urine hCG (POCT) 09/01/2024 Negative Negative Final Location:[facility], [address], [place], [address] Caddy Packer (POCT) 09/01/2024 Internal QC OK Final 2. Irregular menstrual bleeding - ICD9: 626.4, ICD10: N92.6 - no blood in urine dip today? - follow up with [facility] for management of control methods and irregular periods. - Follow-up with your PCP in 3-5 days if symptoms have not improved or sooner if symptoms worsen - Discussed red flags and need for immediate medical evaluation if any occur. - Discussed supportive care treatment with fluids, rest and analgesia. - Discussed expected course of illness Michelle Mcwilliams APRN.DIVEMASTER documented in this encounterCommunity [facility]12-04-2024 NoteHNO ID: [id number] Author: MICHELLE MCWILLIAMS APRN.DIVEMASTER Service: ? Author Type: Nurse Practitioner Type: Progress Notes Filed: 09/01/2024 15:38 Note Text: Subjective HPI Donna Mcmahon is a 24 year old female who presents with irregular period. She is on Depo-Provera, next injection is due in 2 weeks. She started having a period 30 days ago. She denies heavy bleeding or clots, changes pad every 2 hours. Complains of lower pelvic pain, describes it as a shocking pain like electricity. She denies urinary symptoms. She sees [facility] for [facility] care. Review of Systems Constitutional: Negative for chills and fever. Respiratory: Negative. Cardiovascular: Negative. Gastrointestinal: Positive for abdominal pain. Genitourinary: Negative for dysuria, frequency, hematuria and urgency. See HPI BP 144/92 Pulse 96 Temp 36.7 ?C (98.1 ?F) Resp 18 Wt 111.2 kg (245 lb 2.4 oz) LMP (LMP Unknown) SpO2 96% BMI 40.80 kg/m? PAST MEDICAL HISTORY Diagnosis Date Mild intermittent asthma without complication PCOS (polycystic ovarian syndrome) PAST SURGICAL HISTORY Procedure Laterality Date STRABISMUS SURG PT W SCAR EO MUSCL ALLERGIES Amoxicillin-Pot Clavulanate and Vancomycin MEDICATIONS metFORMIN ER (GLUCOPHAGE XR) 500 mg 24 hr tablet Take 1 tablet by mouth daily with breakfast. medroxyPROGESTERone (DEPO-PROVERA) 150 mg/mL albuterol (PROVENTIL) 2.5 mg /3 mL (0.083 %) nebulizer solution Use 3 mL via nebulizer every 4 hours as needed for wheezing/shortness of breath. valACYclovir (VALTREX) 500 mg tablet Take 1,000 mg by mouth as needed (outbreaks). albuterol HFA (PROVENTIL HFA, VENTOLIN HFA) 90 mcg/actuation inhaler Inhale 2 Puffs as instructed every 4 hours as needed. (Patient taking differently: Inhale 2 Puffs as instructed every 4 hours as needed for wheezing/shortness of breath.) blood sugar diagnostic (BLOOD GLUCOSE TEST) test strip Test blood sugar(s) one times daily. Dx: Type 2 DM - Controlled E11.9 Insulin: No cetirizine (ZYRTEC) 10 mg tablet Take 1 tablet by mouth once daily. (Patient taking differently: Take 10 mg by mouth as needed for cold/allergy symptoms.) Lancets lancets Test blood sugar(s) one times daily. Dx: Type 2 DM - Controlled E11.9 Insulin: No FAMILY HISTORY Problem Relation Age of Onset Hypertension Father Social History Tobacco Use Smoking status: Never Smokeless tobacco: Never Vaping Use Vaping status: Never Used Substance Use Topics Alcohol use: Not Currently Drug use: Never Objective Physical Exam Vitals and nursing note reviewed. Constitutional: General: She is not in acute distress. Appearance: Normal appearance. She is not ill-appearing. Cardiovascular: Rate and Rhythm: Normal rate and regular rhythm. Heart sounds: Normal heart sounds. Pulmonary: Effort: Pulmonary effort is normal. No respiratory distress. Breath sounds: Normal breath sounds. No wheezing or rales. Abdominal: General: There is no distension. Palpations: Abdomen is soft. There is no mass. Tenderness: There is no abdominal tenderness. There is no right CVA tenderness, left CVA tenderness or guarding. Skin: General: Skin is warm and dry. Neurological: Mental Status: She is alert. ASSESSMENT/PLAN: 1. Pelvic pain - ICD9: [id number], ICD10: R10.2 (primary diagnosis) - UA DIP, URINE (POC) - UA DIP,URINE HCG (POC)- negative in office. Office Visit on 09/01/2024 Component Date Value Ref Range Status GLUCOSE UA (POCT) 09/01/2024 500 (A) Negative mg/dL Final BILIRUBIN UA (POCT) 09/01/2024 Negative Negative Final KETONE UA (POCT) 09/01/2024 Negative Negative mg/dL Final SPECIFIC GRAVITY UA (POCT) 09/01/2024 >=1.030 1.005 - 1.030 Final HEMOGLOBIN/BLOOD UA (POCT) 09/01/2024 Negative Negative Final PH UA (POCT) 09/01/2024 5.5 4.5 - 8.0 Final PROTEIN UA (POCT) 09/01/2024 30 (A) Negative mg/dL Final UROBILINOGEN UA (POCT) 09/01/2024 0.2 Normal E.U./dL Final NITRITE UA (POCT) 09/01/2024 Negative Negative Final LEUKOCYTES UA (POCT) 09/01/2024 Negative Negative Final COLOR UA (POCT) 09/01/2024 Yellow Final CLARITY UA (POCT) 09/01/2024 Clear Final Urine hCG (POCT) 09/01/2024 Negative Negative Final Location:[facility], [address] [place] [address], [place], [address] Caddy Packer (POCT) 09/01/2024 Internal QC OK Final 2. Irregular menstrual bleeding - ICD9: 626.4, ICD10: N92.6 - no blood in urine dip today? - follow up with [facility] for management of control methods and irregular periods. - Follow-up with your PCP in 3-5 days if symptoms have not improved or sooner if symptoms worsen - Discussed red flags and need for immediate medical evaluation if any occur. - Discussed supportive care treatment with fluids, rest and analgesia. - Discussed expected course of illness Michelle Mcwilliams APRN.[facility] History of Present illness Narrative* Michelle Mcwilliams APRN.DIVEMASTER - 09/01/2024 3:10 PM EST Subjective HPI Donna Mcmahon is a 24 year old female who presents with irregular period. She is on Depo-Provera, next injection is due in 2 weeks. She started having a period 30 days ago. She denies heavy bleeding or clots, changes pad every 2 hours. Complains of lower pelvic pain, describes it as a shocking pain like electricity. She denies urinary symptoms. 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 Review of Systems Constitutional: Negative for chills and fever. Respiratory: Negative. Cardiovascular: Negative. Gastrointestinal: Positive for abdominal pain. Genitourinary: Negative for dysuria, frequency, hematuria and urgency. See HPI BP 144/92 Pulse 96 Temp 36.7 C (98.1 F) Resp 18 Wt 111.2 kg (245 lb 2.4 oz) LMP (LMP Unknown) SpO2 96% BMI 40.80 kg/m PAST MEDICAL HISTORY Diagnosis Date Mild intermittent asthma without complication PCOS (polycystic ovarian syndrome) PAST SURGICAL HISTORY Procedure Laterality Date STRABISMUS SURG PT W SCAR EO MUSCL ALLERGIES Amoxicillin-Pot Clavulanate and Vancomycin MEDICATIONS metFORMIN ER (GLUCOPHAGE XR) 500 mg 24 hr tablet Take 1 tablet by mouth daily with breakfast. medroxyPROGESTERone (DEPO-PROVERA) 150 mg/mL albuterol (PROVENTIL) 2.5 mg /3 mL (0.083 %) nebulizer solution Use 3 mL via nebulizer every 4 hours as needed for wheezing/shortness of breath. valACYclovir (VALTREX) 500 mg tablet Take 1,000 mg by mouth as needed (outbreaks). albuterol HFA (PROVENTIL HFA, VENTOLIN HFA) 90 mcg/actuation inhaler Inhale 2 Puffs as instructed every 4 hours as needed. (Patient taking differently: Inhale 2 Puffs as instructed every 4 hours as needed for wheezing/shortness of breath.) blood sugar diagnostic (BLOOD GLUCOSE TEST) test strip Test blood sugar(s) one times daily. Dx: Type 2 DM - Controlled E11.9 Insulin: No cetirizine (ZYRTEC) 10 mg tablet Take 1 tablet by mouth once daily. (Patient taking differently: Take 10 mg by mouth as needed for cold/allergy symptoms.) Lancets lancets Test blood sugar(s) one times daily. Dx: Type 2 DM - Controlled E11.9 Insulin: No FAMILY HISTORY Problem Relation Age of Onset Hypertension Father Social History Tobacco Use Smoking status: Never Smokeless tobacco: Never Vaping Use Vaping status: Never Used Substance Use Topics Alcohol use: Not Currently Drug use: Never Objective Physical Exam Vitals and nursing note reviewed. Constitutional: General: She is not in acute distress. Appearance: Normal appearance. She is not ill-appearing. Cardiovascular: Rate and Rhythm: Normal rate and regular rhythm. Heart sounds: Normal heart sounds. Pulmonary: Effort: Pulmonary effort is normal. No respiratory distress. Breath sounds: Normal breath sounds. No wheezing or rales. Abdominal: General: There is no distension. Palpations: Abdomen is soft. There is no mass. Tenderness: There is no abdominal tenderness. There is no right CVA tenderness, left CVA tendernessor guarding. Skin: General: Skin is warm and dry. Neurological: Mental Status: She is alert. ASSESSMENT/PLAN: 1. Pelvic pain - ICD9: [id number], ICD10: R10.2 (primary diagnosis) - UA DIP, URINE (POC) - UA DIP,URINE HCG (POC)- negative in office. Office Visit on 09/01/2024 Component Date Value Ref Range Status GLUCOSE UA (POCT) 09/01/2024 500 (A) Negative mg/dL Final BILIRUBIN UA (POCT) 09/01/2024 Negative Negative Final KETONE UA (POCT) 09/01/2024 Negative Negative mg/dL Final SPECIFIC GRAVITY UA (POCT) 09/01/2024 >=1.030 1.005 - 1.030 Final HEMOGLOBIN/BLOOD UA (POCT) 09/01/2024 Negative Negative Final PH UA (POCT) 09/01/2024 5.5 4.5 - 8.0 Final PROTEIN UA (POCT) 09/01/2024 30 (A) Negative mg/dL Final UROBILINOGEN UA (POCT) 09/01/2024 0.2 Normal E.U./dL Final NITRITE UA (POCT) 09/01/2024 Negative Negative Final LEUKOCYTES UA (POCT) 09/01/2024 Negative Negative Final COLOR UA (POCT) 09/01/2024 Yellow Final CLARITY UA (POCT) 09/01/2024 Clear Final Urine hCG (POCT) 09/01/2024 Negative Negative Final Location:[facility], [address], [place], [address] Caddy Packer (POCT) 09/01/2024 Internal QC OK Final 2. Irregular menstrual bleeding - ICD9: 626.4, ICD10: N92.6 - no blood in urine dip today? - follow up with COMMERCIAL MARKETING SPECIALIST for management of control methods and irregular periods. - Follow-up with your PCP in 3-5 days if symptoms have not improved or sooner if symptoms worsen - Discussed red flags and need for immediate medical evaluation if any occur. - Discussed supportive care treatment with fluids, rest and analgesia. - Discussed expected course of illness Michelle Mcwilliams APRN.DIVEMASTER documented in this encounterCommunity [facility]11-02-[facility]24 NoteHNO ID: [id number] Author: MANI GARDNER MD Service: ? Author Type: Physician Type: Progress Notes Filed: 2024 09:26 Note Text: Patient presents with: urgency with urination: Urgency x 2-3 days HPI: Symptoms for 3 days. Dysuria: No Frequency: Yes, with urgency Hematuria: No Nausea: No Fever or chills: No Back pain: No Abdominal pain: No Prior UTI: Yes, with Keflex 07/02/2024 for group B strep on culture Metformin started for A1c of 7 in March. She is out of metformin because she does not have insurance currently. PCP follow up in June was cancelled. She has checked her sugar occasionally and it runs 200-230. She is not limiting carbs in her diet well. PAST MEDICAL HISTORY Diagnosis Date Mild intermittent asthma without complication PCOS (polycystic ovarian syndrome) MEDICATIONS: Current Outpatient Medications Medication Sig metFORMIN ER (GLUCOPHAGE XR) 500 mg 24 hr tablet Take 1 tablet by mouth daily with breakfast. albuterol HFA (PROVENTIL HFA, VENTOLIN HFA) 90 mcg/actuation inhaler Inhale 2 Puffs as instructed every 4 hours as needed. (Patient taking differently: Inhale 2 Puffs as instructed every 4 hours as needed for wheezing/shortness of breath.) blood sugar diagnostic (BLOOD GLUCOSE TEST) test strip Test blood sugar(s) one times daily. Dx: Type 2 DM - Controlled E11.9 Insulin: No medroxyPROGESTERone (DEPO-PROVERA) 150 mg/mL albuterol (PROVENTIL) 2.5 mg /3 mL (0.083 %) nebulizer solution Use 3 mL via nebulizer every 4 hours as needed for wheezing/shortness of breath. valACYclovir (VALTREX) 500 mg tablet Take 1,000 mg by mouth as needed (outbreaks). cetirizine (ZYRTEC) 10 mg tablet Take 1 tablet by mouth once daily. (Patient taking differently: Take 10 mg by mouth as needed for cold/allergy symptoms.) Lancets lancets Test blood sugar(s) one times daily. Dx: Type 2 DM - Controlled E11.9 Insulin: No Hpmfcvgthopzttf-Wkvtewmvl-LR (BROMFED DM) 2-30-10 mg/5 mL syrup Take 5 mL by mouth four times a day as needed. (Patient not taking: Reported on 07/02/2024) sertraline (ZOLOFT) 100 mg tablet Take 1 tablet by mouth once daily. (Patient not taking: Reported on 02/07/2024) No current facility-administered medications for this visit. ALLERGIES: ALLERGIES Allergen Reactions Amoxicillin-Pot Cla* Rash Vancomycin Shortness of Breath VITALS: BP 132/84 Pulse 72 Temp 36.8 ?C (98.3 ?F) (Tympanic) Resp 18 Wt 111.5 kg (245 lb 13 oz) LMP (LMP Unknown) BMI 40.91 kg/m? PHYSICAL EXAM: GEN: NAD HEENT: EOMI, conjunctiva clear, HEART: regular rate and rhythm, no murmurs LUNGS: clear to auscultation, no wheezes or crackles, no increased WOB ABDOMEN: Soft, nondistended, no masses, no suprapubic tenderness BACK: No CVA tenderness ASSESSMENT/PLAN: 1. Urgency of urination - ICD9: 788.63, ICD10: R39.15 (primary diagnosis) - UA DIP, URINE (POC) Positive for 500 mg/dL glucose. No signs of urinary tract infection. Discussed connection between glycosuria and urinary symptoms. 2. Type 2 diabetes mellitus without complication, without long-term current use of insulin ([facility]) - ICD9: 250.00, ICD10: E11.9 We had a discussion about the importance of treating diabetes. Resume - METFORMIN ER 500 MG TABLET,EXTENDED RELEASE 24 HR (30 day Rx sent). Financial counseling will contact the patient to help with coverage for care. She does need to schedule follow-up with primary care. Mani Gardner, [facility]11-02-2024 History of Present illness Narrative* Mani Gardner MD - 2024 9:06 AM EDT Patient presents with: urgency with urination: Urgency x 2-3 days HPI: Symptoms for 3 days. Dysuria: No Frequency: Yes, with urgency Hematuria: No Nausea: No Fever or chills: No Back pain: No Abdominal pain: No Prior UTI: Yes, with Keflex 07/02/2024 for group B strep on culture Metformin started for A1c of 7 in March. She is out of metformin because she does not have insurancecurrently. PCP follow up in June was cancelled. She has checked her sugar occasionally and it runs 200-230. She is not limiting carbs in her diet well. PAST MEDICAL HISTORY Diagnosis Date Mild intermittent asthma without complication PCOS (polycystic ovarian syndrome) MEDICATIONS: Current Outpatient Medications Medication Sig metFORMIN ER (GLUCOPHAGE XR) 500 mg 24 hr tablet Take 1 tablet by mouth daily with breakfast. albuterol HFA (PROVENTIL HFA, VENTOLIN HFA) 90 mcg/actuation inhaler Inhale 2 Puffs as instructed every 4 hours as needed. (Patient taking differently: Inhale 2 Puffs as instructed every 4 hours as needed for wheezing/shortness of breath.) blood sugar diagnostic (BLOOD GLUCOSE TEST) test strip Test blood sugar(s) one times daily. Dx: Type 2 DM - Controlled E11.9 Insulin: No medroxyPROGESTERone (DEPO-PROVERA) 150 mg/mL albuterol (PROVENTIL) 2.5 mg /3 mL (0.083 %) nebulizer solution Use 3 mL via nebulizer every 4 hours as needed for wheezing/shortness of breath. valACYclovir (VALTREX) 500 mg tablet Take 1,000 mg by mouth as needed (outbreaks). cetirizine (ZYRTEC) 10 mg tablet Take 1 tablet by mouth once daily. (Patient taking differently: Take 10 mg by mouth as needed for cold/allergy symptoms.) Lancets lancets Test blood sugar(s) one times daily. Dx: Type 2 DM - Controlled E11.9 Insulin: No Mtgowixwqqvzhbj-Flcztwzcv-EF (BROMFED DM) 2-30-10 mg/5 mL syrup Take 5 mL by mouth four times a dayas needed. (Patient not taking: Reported on 07/02/2024) sertraline (ZOLOFT) 100 mg tablet Take 1 tablet by mouth once daily. (Patient not taking: Reported on 02/07/2024) No current facility-administered medications for this visit. ALLERGIES: ALLERGIES Allergen Reactions Amoxicillin-Pot Cla* Rash Vancomycin Shortness of Breath VITALS: BP 132/84 Pulse 72 Temp 36.8 C (98.3 F) (Tympanic) Resp 18 Wt 111.5 kg (245 lb 13 oz) LMP(LMP Unknown) BMI 40.91 kg/m PHYSICAL EXAM: GEN: NAD HEENT: EOMI, conjunctiva clear, HEART: regular rate and rhythm, no murmurs LUNGS: clear to auscultation, no wheezes or crackles, no increased WOB ABDOMEN: Soft, nondistended, no masses, no suprapubic tenderness BACK: No CVA tenderness ASSESSMENT/PLAN: 1. Urgency of urination - ICD9: 788.63, ICD10: R39.15 (primary diagnosis) - UA DIP, URINE (POC) Positive for 500 mg/dL glucose. No signs of urinary tract infection. Discussed connection between glycosuria and urinary symptoms. 2. Type 2 diabetes mellitus without complication, without long-term current use of insulin ([facility]) - ICD9: 250.00, ICD10: E11.9 We had a discussion about the importance of treating diabetes. Resume - METFORMIN ER 500 MG TABLET,EXTENDED RELEASE 24 HR (30 day Rx sent). Financial counseling will contact the patient to help with coverage for care. She does need to schedule follow-up with primary care. Mani Gardner MD documented in this encounterCommunity [facility]10-10-2024 Telephone encounter Note * Telephone Encounter - Suma Purvis LPN - 07/08/2024 9:40 AM EDT Spoke with pt and information listed below given. Pt verbalizes understanding. Suma Purvis LPN [facility]10-10-2024 Miscellaneous Notes* Telephone Encounter - Suma Purvis LPN - 07/08/2024 9:40 AM EDT Spoke with pt and information listed below given. Pt verbalizes understanding. Suma Purvis LPN * Telephone Encounter - Amy Rendon LPN - 07/05/2024 10:19 AM EDT Telephone call to patient. Message left to call office back for update. Amy Rendon LPN * Telephone Encounter - Ying Piña APRN.CNP - 07/02/2024 1:30 PM EDT If she has took two doses and it is not better she needs to be seen. 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 Pt is asking for a prescription to be sent in. because of this. Please advise pt. Suma Purvis LPN * Telephone Encounter - Ying Piña APRN.CNP - 07/02/2024 11:26 AM EDT If no change with two doses I would have her follow-up with her COMMERCIAL MARKETING SPECIALIST. Ying Piña APRN.CNP * Telephone Encounter - Suma Purvis LPN - 07/02/2024 11:12 AM EDT Pt was seen in [facility] and put on Diflucan. Pt has taken both doses olegario still having some discharge and itching. Requesting another dose of medication sent to [facility]. Please advise pt. Suma Purvis LPN documented in this encounterCommunity [facility]10-07-2024 Telephone encounter Note * Telephone Encounter - Amy Rendon LPN - 07/05/2024 10:19 AM EDT Telephone call to patient. Message left to call office back for update. Amy Rendon LPN [facility]10-07-2024 Telephone encounter Note* Telephone Encounter - Breonna Squires RN - 07/05/2024 8:04 AM EDT Patient notified of results and provider's instructions. Patient verbalizes understanding. Breonna Squires RN [facility]10-07-2024 Miscellaneous Notes* Telephone Encounter - Breonna Squires RN - 07/05/2024 8:04 AM EDT Patient notified of results and provider's instructions. Patient verbalizes understanding. Breonna Squires RN * Telephone Encounter - Esther Neri MA - 07/04/2024 1:20 PM EDT mailbox is full. Will try again later. Esther Neri MA * Telephone Encounter - Darrel Greenfield APRN.CUCO - 07/04/2024 11:44 AM EDT Call patient let her know I added Keflex antibiotic according to urine culture. Patient should continue the other medication but add this medication. documented in this encounterCommunity [facility]10-06-2024 Telephone encounter Note * Telephone Encounter - Esther Neri MA - 07/04/2024 1:20 PM EDT mailbox is full. Will try again later. Esther Neri MA [facility]10-06-2024 Telephone encounter Note* Telephone Encounter - Darrel Greenfield APRN.CUCO - 07/04/2024 11:44 AM EDT Call patient let her know I added Keflex antibiotic according to urine culture. Patient should continue the other medication but add this medication. [facility]10-05-[facility] Telephone encounter Note* Telephone Encounter - Myesha Wyatt MA - 07/03/2024 1:58 PM EDT Patient active MyChart. Patient notified via [employer] message. Myesha Wyatt MA [facility]10-05-2024 Miscellaneous Notes* Telephone Encounter - Myesha Wyatt MA - 07/03/2024 1:58 PM EDT Patient active MyChart. Patient notified via [employer] message. Myesha Wyatt MA * Telephone Encounter - Carol Glasgow LPN - 07/03/2024 8:58 AM EDT Unable to reach patient. Mailbox full. Please try again later. Carol Glasgow LPN * Telephone Encounter - Michelle Mcwilliams APRN.CUCO - 07/03/2024 8:12 AM EDT Please advise patient the test was positive for BV. Gonorrhea and chlamydia test was negative. The test for yeast and trichomonas is still processing. I have sent a prescription for flagyl to her pharmacy. Avoid alcohol while taking this medication. Michelle Mcwilliams APRN.CUCO documented in this encounterCommunity [facility] Hospital10-05-2024 Telephone encounter Note * Telephone Encounter - Carol Glagsow LPN - 07/03/2024 8:58 AM EDT Unable to reach patient. Mailbox full. Please try again later. Carol Glasgow LPN [facility]10-05-2024 Telephone encounter Note* Telephone Encounter - Michelle Mcwilliams APRN.CNP - 07/03/2024 8:12 AM EDT Please advise patient the test was positive for BV. Gonorrhea and chlamydia test was negative. The test for yeast and trichomonas is still processing. I have sent a prescription for flagyl to her pharmacy. Avoid alcohol while taking this medication. Michelle Mcwilliams APRN.CUCO [facility]10-04-2024 NoteHNO ID: [id number] Author: DARREL GREENFIELD APRN.CUCO Service: ? Author Type: Nurse Practitioner Type: Progress Notes Filed: 07/02/2024 17:22 Note Text: CC: Patient presents with: Urinary Problem: Burning with urination, itching and burning on inside, yellow discharge x 1 day HPI Donna Mcmahon is a 23 year old female who presents with complaint of possible UTI. These symptoms have been present for 1 days. Associated symptoms: abnormal vaginal discharge and vaginal itching Denies: pressure, fever, chills, sweats, and abdominal pain Treatments: nothing The ROS was otherwise negative. PMH, Medications, labs, allergies, and recent past visits with PCP were reviewed and updated as able. PHYSICAL EXAM: BP 131/87 Pulse 87 Temp 37.1 ?C (98.7 ?F) Resp 18 Wt 108 kg (238 lb 1.6 oz) LMP (LMP Unknown) SpO2 98% BMI 39.62 kg/m? General: Well appearing and alert CV: Regular rate and rhythm without obvious murmur Lungs: clear to auscultation bilaterally Back: straight and symmetric Abdomen: soft, nontender, nondistended PAST MEDICAL HISTORY Diagnosis Date Mild intermittent asthma without complication PCOS (polycystic ovarian syndrome) PAST SURGICAL HISTORY Procedure Laterality Date STRABISMUS SURG PT W SCAR EO MUSCL ALLERGIES Amoxicillin-Pot Clavulanate and Vancomycin MEDICATIONS metFORMIN ER (GLUCOPHAGE XR) 500 mg 24 hr tablet Take 1 tablet by mouth daily with breakfast. albuterol HFA (PROVENTIL HFA, VENTOLIN HFA) 90 mcg/actuation inhaler Inhale 2 Puffs as instructed every 4 hours as needed. (Patient taking differently: Inhale 2 Puffs as instructed every 4 hours as needed for wheezing/shortness of breath.) blood sugar diagnostic (BLOOD GLUCOSE TEST) test strip Test blood sugar(s) one times daily. Dx: Type 2 DM - Controlled E11.9 Insulin: No medroxyPROGESTERone (DEPO-PROVERA) 150 mg/mL albuterol (PROVENTIL) 2.5 mg /3 mL (0.083 %) nebulizer solution Use 3 mL via nebulizer every 4 hours as needed for wheezing/shortness of breath. valACYclovir (VALTREX) 500 mg tablet Take 1,000 mg by mouth as needed (outbreaks). cetirizine (ZYRTEC) 10 mg tablet Take 1 tablet by mouth once daily. (Patient taking differently: Take 10 mg by mouth as needed for cold/allergy symptoms.) Lancets lancets Test blood sugar(s) one times daily. Dx: Type 2 DM - Controlled E11.9 Insulin: No Nmjzymjjkjiyrdk-Gqoewvdzc-YC (BROMFED DM) 2-30-10 mg/5 mL syrup Take 5 mL by mouth four times a day as needed. (Patient not taking: Reported on 07/02/2024) sertraline (ZOLOFT) 100 mg tablet Take 1 tablet by mouth once daily. (Patient not taking: Reported on 02/07/2024) FAMILY HISTORY Problem Relation Age of Onset Hypertension Father Social History Tobacco Use Smoking status: Never Smokeless tobacco: Never Vaping Use Vaping status: Never Used Substance Use Topics Alcohol use: Not Currently Drug use: Never ASSESSMENT/PLAN: 1. Burning with urination - ICD9: 788.1, ICD10: R30.0 (primary diagnosis) - UA DIP, URINE (POC) - URINE CULTURE 2. Vaginal discharge - ICD9: 623.5, ICD10: N89.8 - BACTERIAL VAGINOSIS NAAT - ITZ/TRICHOMONAS NAAT - GONORRHEA/CHLAMYDIA NAAT No meds given at this time. Self swabbed . Potential red flag symptoms discussed with the patient. Reviewed appropriate action plan to take if red flag symptoms occur. Patient agreeable to treatment plan. Darrel Greenfield APRN.[facility]10-04-2024 History of Present illness Narrative* Darrel Greenfield APRN.DIVEMASTER - 07/02/2024 4:46 PM EDT CC: Patient presents with: Urinary Problem: Burning with urination, itching and burning on inside, yellow discharge x 1 day HPI Donna Mcmahon is a 23 year old female who presents with complaint of possible UTI. These symptomshave been present for 1 days. Associated symptoms: abnormal vaginal discharge and vaginal itching Denies: pressure, fever, chills, sweats, and abdominal pain Treatments: nothing The ROS was otherwise negative. PMH, Medications, labs, allergies, and recent past visits with PCP were reviewed and updated as able. PHYSICAL EXAM: BP 131/87 Pulse 87 Temp 37.1 C (98.7 F) Resp 18 Wt 108 kg (238 lb 1.6 oz) LMP (LMP Unknown) SpO2 98% BMI 39.62 kg/m General: Well appearing and alert CV: Regular rate and rhythm without obvious murmur Lungs: clear to auscultation bilaterally Back: straight and symmetric Abdomen: soft, nontender, nondistended PAST MEDICAL HISTORY Diagnosis Date Mild intermittent asthma without complication PCOS (polycystic ovarian syndrome) PAST SURGICAL HISTORY Procedure Laterality Date STRABISMUS SURG PT W SCAR EO MUSCL ALLERGIES Amoxicillin-Pot Clavulanate and Vancomycin MEDICATIONS metFORMIN ER (GLUCOPHAGE XR) 500 mg 24 hr tablet Take 1 tablet by mouth daily with breakfast. albuterol HFA (PROVENTIL HFA, VENTOLIN HFA) 90 mcg/actuation inhaler Inhale 2 Puffs as instructed every 4 hours as needed. (Patient taking differently: Inhale 2 Puffs as instructed every 4 hours as needed for wheezing/shortness of breath.) blood sugar diagnostic (BLOOD GLUCOSE TEST) test strip Test blood sugar(s) one times daily. Dx: Type 2 DM - Controlled E11.9 Insulin: No medroxyPROGESTERone (DEPO-PROVERA) 150 mg/mL albuterol (PROVENTIL) 2.5 mg /3 mL (0.083 %) nebulizer solution Use 3 mL via nebulizer every 4 hours as needed for wheezing/shortness of breath. valACYclovir (VALTREX) 500 mg tablet Take 1,000 mg by mouth as needed (outbreaks). cetirizine (ZYRTEC) 10 mg tablet Take 1 tablet by mouth once daily. (Patient taking differently: Take 10 mg by mouth as needed for cold/allergy symptoms.) Lancets lancets Test blood sugar(s) one times daily. Dx: Type 2 DM - Controlled E11.9 Insulin: No Fqthbroulqkbbwh-Mkjqnawul-HR (BROMFED DM) 2-30-10 mg/5 mL syrup Take 5 mL by mouth four times a dayas needed. (Patient not taking: Reported on 07/02/2024) sertraline (ZOLOFT) 100 mg tablet Take 1 tablet by mouth once daily. (Patient not taking: Reported on 02/07/2024) FAMILY HISTORY Problem Relation Age of Onset Hypertension Father Social History Tobacco Use Smoking status: Never Smokeless tobacco: Never Vaping Use Vaping status: Never Used Substance Use Topics Alcohol use: Not Currently Drug use: Never ASSESSMENT/PLAN: 1. Burning with urination - ICD9: 788.1, ICD10: R30.0 (primary diagnosis) - UA DIP, URINE (POC) - URINE CULTURE 2. Vaginal discharge - ICD9: 623.5, ICD10: N89.8 - BACTERIAL VAGINOSIS NAAT - ITZ/TRICHOMONAS NAAT - GONORRHEA/CHLAMYDIA NAAT No meds given at this time. Self swabbed . Potential red flag symptoms discussed with the patient. Reviewed appropriate action plan to take if red flag symptoms occur. Patient agreeable to treatment plan. Darrel Gin, DOCK ATTENDANT.DIVEMASTER documented in this encounterCommunity [facility] Hospital10-04-2024 Telephone encounter Note * Telephone Encounter - Ying Piña APRN.CNP - 07/02/2024 1:30 PM EDT If she has took two doses and it is not better she needs to be seen. 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 Pt is asking for a prescription to be sent in. because of this. Please advise pt. Suma Purvis LPN [facility]10-04-2024 Telephone encounter Note* Telephone Encounter - Ying Piña APRN.CNP - 07/02/2024 11:26 AM EDT If no change with two doses I would have her follow-up with her COMMERCIAL MARKETING SPECIALIST. Ying Piña APRN.CUCO [facility]10-04-2024 Telephone encounter Note* Telephone Encounter - Suma Purvis LPN - 07/02/2024 11:12 AM EDT Pt was seen in [facility] and put on Diflucan. Pt has taken both doses olegario still having some discharge and itching. Requesting another dose of medication sent to [facility]. Please advise pt. Suma Purvis LPN [facility]09-27-2024 Telephone encounter Note* Telephone Encounter - Myesha Wyatt MA - 06/25/2024 9:11 AM EDT Patient active MyChart. Patient notified via [employer] message. Myesha Wyatt MA [facility]09-27-2024 Miscellaneous Notes* Telephone Encounter - Meysha Wyatt MA - 06/25/2024 9:11 AM EDT Patient active MyChart. Patient notified via [employer] message. Myesha Wyatt MA * Telephone Encounter - Carol Glasgow LPN - 06/24/2024 4:06 PM EDT Unable to reach patient. Mailbox full/ Please try again later. Carol Glasgow LPN * Telephone Encounter - Darrel Greenfield APRN.CNP - 06/24/2024 3:23 PM EDT Urine culture came back and requires antibiotic to be changed to Keflex. Keflex was sent to the pharmacy twice a day for a week patient should stop taking the Macrobid and start the Keflex. [facility] Note * Telephone Encounter - Carol Glasgow LPN - 06/24/2024 4:06 PM EDT Unable to reach patient. Mailbox full/ Please try again later. Carol Glasgow LPN [facility] Telephone encounter Note* Telephone Encounter - Darrel Greenfield APRN.CNP - 06/24/2024 3:23 PM EDT Urine culture came back and requires antibiotic to be changed to Keflex. Keflex was sent to the pharmacy twice a day for a week patient should stop taking the Macrobid and start the Keflex. [facility]09-26-2024 Telephone encounter Note* Telephone Encounter - Erwin Still MA - 06/24/2024 8:12 AM EDT Patient notified of results, verbalized understanding of instructions given. Erwin Still MA [facility]09-26-2024 Miscellaneous Notes* Telephone Encounter - Erwin Still MA - 06/24/2024 8:12 AM EDT Patient notified of results, verbalized understanding of instructions given. Erwin Still MA * Telephone Encounter - Janene Fink PA - 06/24/2024 7:08 AM EDT Please let patient know she tested positive for BV. I have sent metronidazole to the pharmacy. No drinking alcohol while on this medication [facility] Telephone encounter Note * Telephone Encounter - Janene Fink PA - 06/24/2024 7:08 AM EDT Please let patient know she tested positive for BV. I have sent metronidazole to the pharmacy. No drinking alcohol while on this medication [facility]09[facility]24 Instructions* Patient Instructions* Michelle Mcwilliams APRN.DIVEMASTER - 06/23/2024 9:36 AM EDT ASSESSMENT/PLAN: 1. Vaginal burning - ICD9: 625.8, ICD10: N94.89 (primary diagnosis) - ITZ/TRICHOMONAS NAAT - BACTERIAL VAGINOSIS NAAT 2. Acute cystitis with hematuria - ICD9: 595.0, ICD10: N30.01 - URINE CULTURE - NITROFURANTOIN MONOHYDRATE & MACROCRYSTAL 100 MG ORAL CAP Office Visit on 06/23/2024 Component Date Value Ref Range Status GLUCOSE UA (POCT) 06/23/2024 500 (A) Negative mg/dL Final BILIRUBIN UA (POCT) 06/23/2024 Negative Negative Final KETONE UA (POCT) 06/23/2024 Negative Negative mg/dL Final SPECIFIC GRAVITY UA (POCT) 06/23/2024 1.015 1.005 - 1.030 Final HEMOGLOBIN/BLOOD UA (POCT) 06/23/2024 Trace-intact (A) Negative Final PH UA (POCT) 06/23/2024 5.5 4.5 - 8.0 Final PROTEIN UA (POCT) 06/23/2024 Negative Negative mg/dL Final UROBILINOGEN UA (POCT) 06/23/2024 0.2 Normal E.U./dL Final NITRITE UA (POCT) 06/23/2024 Negative Negative Final LEUKOCYTES UA (POCT) 06/23/2024 Moderate (A) Negative Final COLOR UA (POCT) 06/23/2024 Yellow Final CLARITY UA (POCT) 06/23/2024 Clear Final 3. Dysuria - ICD9: 788.1, ICD10: R30.0 acute - UA positive for heriberto esterase, hematuria, and glucose - Send urine for culture - Begin treatment with Macrobid 100 mg BID for 5 days - UA DIP, URINE (POC) 4. Vaginal discharge - ICD9: 623.5, ICD10: N89.8 - suspect yeast infection; vaginal tissues are erythematous and tender. - GONORRHEA/CHLAMYDIA NAAT - FLUCONAZOLE 150 MG TABLET 5. Common cold virus - ICD9: 460, ICD10: J00 - [id number] 2 MG-30 MG-10 MG/5 ML ORAL SYRUP 6. Glucosuria - ICD9: 791.5, ICD10: R81 - patient with history of T2DM; last HgA1C was 7. Follow up with PCP for medication monitoring. - Follow-up with your PCP in 3-5 days if symptoms have not improved or sooner if symptoms worsen - Discussed red flags and need for immediate medical evaluation if any occur. - Discussed supportive care treatment with fluids, rest and analgesia. - Discussed expected course of illness' Michelle Mcwilliams APRN.DIVEMASTER SAFER SEX: Your doctor wants you to have this information about the infections that can be transmitted from sexual contact and how to prevent them. The idea behind safer sex is that you can be sexually active and at the same time reduce the risk of giving or getting a sexually transmitted disease (STD). STD sare transmitted by sharing body fluids which harbor viruses or bacteria. Semen, urine, blood and vaginal mucous can all transmit infections during sex. Examples of sexually transmitted infections include chlamydia, gonorrhea, herpes, hepatitis, genital warts and AIDS. Sexual diseases often cause few or no symptoms until they are advanced, so a person can be infectedand spread the infection without knowing it. You never become immune to sexual diseases. Some STD srespond to treatment very well, others, like AIDS and herpes, cannot be cured, but are treated to reduce their effects. Being careful cannot eliminate all risk of infection, but sex can be made much safer. Safe sexual practices include hugging, body massage, and gentle touching. Masturbation is safe as long as body fluids do not contact any skin that has sores or cuts. Dry kissing and oral sex on a manwearing a latex condom or on a woman wearing a female condom is also safe. Slightly less safe is intercourse while the man wears a latex condom and wet kissing. Alcohol and recreational drugs are often the reason given for not practicing safer sex. These substances affect not only your judgment, but also impair your immune system, making you more vulnerable to disease. Risky and dangerous sexual practices include vaginal or anal sex without a condom, oral sex on a man without a condom, oral sex on a woman without a female condom, using saliva to lubricate a condom,or any other sexual contact in which body fluids or blood from one partner contacts the other. You should use only latex condoms and water soluble lubricants like K-Y jelly. Vaseline or oils used to lubricate a condom will weaken the condom and increase the chance it will break. Use spermacide gel that contains at least 5% Nonoxynol-9 along with the condom; this reduces the risk of as well as transmitting the AIDS virus. Think very carefully before having sex with anyone who is high risk for STD and AIDS. These include IV drug users, people with multiple sexual partners, or those that have had a positive HIV blood test. EXPRESS CARE PATIENT INFO COMMON COLD OVERVIEW The common cold is one of the most frequent illnesses in the [place]. Although most colds aremild and resolve within a short time period, colds cost billions of dollars per year, mostly due tolost time at work and school. COMMON COLD CAUSES The common cold is a group of symptoms caused by one of a large number of viruses. Rhinoviruses cause the greatest number of colds; there are more than 100 different varieties of rhinovirus. Most viruses cause a person to be ill only once. However, due to the large number of viruses, a person can have a cold multiple times throughout his or her lifetime. The average adult experiences two to threecolds per year, while children average 8 to 12 colds per year. Colds are transmitted from khdqol-iz-xenffj. Less often, the virus can be transmitted by touching asurface. Direct contact -- People with colds typically carry the cold virus on their hands. The virus may remain alive on the skin and capable of infecting another person for at least two hours. Thus, if a sick person shakes someone's hand and that individual then touches his eye, nose, or mouth, the virus can be transmitted and later infect that person. Infection from particles on surfaces -- Some cold viruses can live on surfaces (such as a counter top, door handle, or phone) for several hours. Inhaling viral particles -- Droplets containing viral particles can be breathed, coughed, or sneezed into the air by a person with a cold. The virus can be transmitted to others if another person is standing close (a few feet) and the droplet touches that person s eye, nose, or mouth. Covering the mouth while coughing or sneezing greatly reduces this risk. Most cold viruses are not spread by saliva. Thus, kissing itself is not likely to transmit the common cold, but close direct contact can. Colds are not caused by cold climates or being exposed to cold air. However, some types of virus cause more colds during certain seasons (eg, fall and winter versus spring). COMMON COLD SIGNS AND SYMPTOMS The common cold usually causes nasal congestion, runny nose, and sneezing. A sore throat may be present on the first day but usually resolves quickly. If a cough occurs, it generally develops on about the fourth or fifth day of symptoms, typically when congestion and runny nose are usually resolving. COMMON COLD COMPLICATIONS In most cases, colds do not cause serious illness. Most colds last for three to seven days, although many people continue to have symptoms (coughing, sneezing, congestion) for up to two weeks. Some viruses that cause the common cold can also depress the immune system or cause swelling in thelining of the nose or airways; this can, in turn, lead to a new viral infection or bacterial infection. One of the more common complications is sinusitis, which is usually caused by viruses and rarely (about 2 percent of the time) by bacteria. However, it can be difficult to distinguish bacterial sinusitis from sinusitis caused by a cold because the signs and symptoms can be similar Having thick or yellow to green- colored nasal discharge does not mean that bacterial sinusitis has developed; discolored nasal discharge is a normal phase of the common cold. Lower respiratory infections, such as pneumonia or bronchitis, may develop following a cold. Infection of the middle ear, or otitis media, can accompany or follow a cold. The influenza virus, which causes the flu, can also cause features similar to those of a cold. However, the flu usually causes other signs and symptoms (fever, body aches) and is more serious than a cold. COMMON COLD TREATMENT There is no specific treatment for the viruses that cause the common cold. Most treatments are aimed at relieving some of the symptoms of the cold, but do not shorten or cure the cold. Antibiotics are not useful for treating the common cold; antibiotics are only used to treat illnesses caused by bacteria, not viruses. The symptoms of a cold will resolve over time, even without any treatment. The following are treatments that may reduce the symptoms caused by the common cold. People with underlying medical conditions and those who use other zqrz-rtd-rynjwkc or prescription medications should speak with their healthcare provider or pharmacist to ensure that it is safe to use these treatments. Runny nose and nasal congestion -- Runny nose and congestion may improve with the use of decongestants. Pseudoephedrine is a decongestant that can improve nasal congestion. Most drugstores in the [place] carry pseudoephedrine behind the counter, so it must be requested from the pharmacist (a prescription is not required). Antihistamines such as diphenhydramine (Benadryl ) may also help, but can cause side effects such as drowsiness and drying of the eyes, nose, and mouth. Nasal inhalers, including ipratropium bromide (Atrovent , available by prescription) may relieve runny nose and sneezing while cromolyn sodium (NasalCrom , a non-prescription medicine) may relieve runny nose, cough, and sneezing. Other nasal sprays such an oxymetazoline (Afrin and others) can also give temporary relief of nasalcongestion. However, these sprays should never be used for more than two to three days; use for more than three days use can worsen congestion. Nasal irrigation and saline sprays -- Rinsing the nose with a salt-water (saline) solution is called nasal irrigation or nasal lavage. Saline is also available in a standard nasal spray, although this is not as effective as using larger amounts of water in an irrigation. Nasal irrigation is particularly useful for treating drainage down the back of the throat, sneezing, nasal dryness, and congestion. The treatment helps by rinsing out allergens and irritants from thenose. Saline rinses also clean the nasal lining and can be used before applying sprays containing medications, to get a better effect from the medication. Nasal lavage with warmed saline can be performed as needed, once per day, or twice daily for increased symptoms. Nasal lavage carries few risks when performed correctly. Saline nasal sprays and irrigation kits can be purchased cgar-npq-rdnziqf. Saline mixes can also be purchased or patients can make their own solution. A variety of devices, including bulb syringes, Neti pots, and bottle sprayers, may be used to perform nasal lavage; instructions for nasal lavage are provided in the table. At least 200 mL (about 3/4cup) of fluid is recommended for each nostril. Sore throat and headache -- Sore throat and headache are best treated with a mild pain reliever such as acetaminophen (Tylenol ) or a non-steroidal anti- inflammatory agent such as ibuprofen or naproxen (Motrin or Aleve ). Cough -- Common cough medicine ingredients include guaifenesin and dextromethorphan; these are often combined with other medications in dunr-uxl-mdzpkga cold formulas. However, the benefit of cough medicines is likely to be small to non-existent. In clinical trials, cough suppressants were no more effective in reducing the duration or severity of coughing due to cold than a placebo (a non-drug substitute). Antibiotics -- Antibiotics should not be used to treat an uncomplicated common cold. As noted above, colds are caused by viruses. Antibiotics treat bacterial, not viral infections. Alternative treatments -- Heated, humidified air can improve symptoms of nasal congestion and runnynose, and causes few to no side effects. PREVENTION Hand washing is an essential and highly effective way to prevent the spread of infection. Hands should be wet with water and plain soap, and rubbed together for 15 to 30 seconds. Special attention should be paid to the fingernails, between the fingers, and the wrists. Hands should be rinsed thoroughly, and dried with a single use towel. Alcohol-based hand rubs are a good alternative for disinfecting hands if a sink is not available. Hand rubs should be spread over the entire surface of hands, fingers, and wrists until dry, and may be used several times. These rubs can be used repeatedly without skin irritation or loss of effectiveness. Hand rubs are available as a liquid or wipe in small, portable sizes that are easy to carry in a pocket or handbag. When a sink is available, visibly soiled hands should be washed with soap and water. Hands should be washed before preparing food and eating, and after coughing, blowing the nose, or sneezing. While it is not always possible to limit contact with people who may be infected with a cold, touching the eyes, nose, or mouth after direct contact should be avoided when possible. In addition, tissues should be used to cover the mouth when sneezing or coughing. These used tissues should be disposed of promptly. Sneezing/coughing into the sleeve of one's clothing (at the inner elbow) is another means of containing sprays of saliva and secretions and does not contaminate the hands. SUMMARY The average adult experiences two to three colds per year, while children average 8 to 12 colds peryear. Symptoms of the common cold usually include nasal congestion, runny nose, and sneezing. They typically last for three to seven days, although many people have symptoms (coughing, sneezing, congestion) for up to two weeks. People with colds typically carry the cold virus on their hands, where it can infect another personfor at least two hours. Some cold viruses can live on surfaces (such as a counter top, door handle,or phone) for several hours. Droplets containing viral particles can be breathed, coughed, or sneezed into the air. There is no specific treatment for colds. Treatment may reduce some of the symptoms of the cold, but do not shorten or cure the cold. Antibiotics are not useful for treating the common cold. Hand washing can prevent the spread of infection. Hands should be wet with water and plain soap, and rubbed together for 15 to 30 seconds. Alcohol-based hand rubs are a good alternative for disinfecting hands if a sink is not available documented [facility] encounterCommunity [facility] NoteHNO ID: [id number] Author: MICHELLE MCWILLIAMS APRN.DIVEMASTER Service: ? Author Type: Nurse Practitioner Type: Progress Notes Filed: 06/23/2024 09:37 Note Text: Subjective Nasal Congestion Associated symptoms include congestion, coughing, ear pain (pressure) and a sore throat. Donna Mcmahon is a 23 year old female who presents with cough, bilateral ear pressure, nasal congestion and intermittent sore throat for the past 2 days. She has not had a fever. She is also having dysuria, vaginal burning, itching and discharge for the past 3 or 4 days. She is currently sexually active. She has had a new partner recently. She does not use condoms. She is on Depo for control. Review of Systems Constitutional: Negative for fever. HENT: Positive for congestion, ear pain (pressure) and sore throat. Respiratory: Positive for cough. Cardiovascular: Negative. Genitourinary: Positive for dysuria. Negative for flank pain, frequency, hematuria and urgency. See HPI Musculoskeletal: Negative for myalgias. BP 124/90 Pulse 104 Temp 37.1 ?C (98.7 ?F) Resp 16 Wt 110.4 kg (243 lb 6.2 oz) LMP (LMP Unknown) SpO2 99% BMI 40.50 kg/m? PAST MEDICAL HISTORY Diagnosis Date Mild intermittent asthma without complication PCOS (polycystic ovarian syndrome) PAST SURGICAL HISTORY Procedure Laterality Date STRABISMUS SURG PT W SCAR EO MUSCL ALLERGIES Amoxicillin-Pot Clavulanate and Vancomycin MEDICATIONS metFORMIN ER (GLUCOPHAGE XR) 500 mg 24 hr tablet Take 1 tablet by mouth daily with breakfast. albuterol HFA (PROVENTIL HFA, VENTOLIN HFA) 90 mcg/actuation inhaler Inhale 2 Puffs as instructed every 4 hours as needed. blood sugar diagnostic (BLOOD GLUCOSE TEST) test strip Test blood sugar(s) one times daily. Dx: Type 2 DM - Controlled E11.9 Insulin: No medroxyPROGESTERone (DEPO-PROVERA) 150 mg/mL albuterol (PROVENTIL) 2.5 mg /3 mL (0.083 %) nebulizer solution Use 3 mL via nebulizer every 4 hours as needed for wheezing/shortness of breath. valACYclovir (VALTREX) 500 mg tablet Take 500 mg by mouth twice daily. cetirizine (ZYRTEC) 10 mg tablet Take 1 tablet by mouth once daily. Lancets lancets Test blood sugar(s) one times daily. Dx: Type 2 DM - Controlled E11.9 Insulin: No sertraline (ZOLOFT) 100 mg tablet Take 1 tablet by mouth once daily. (Patient not taking: Reported on 02/07/2024) FAMILY HISTORY Problem Relation Age of Onset Hypertension Father Social History Tobacco Use Smoking status: Never Smokeless tobacco: Never Vaping Use Vaping status: Never Used Substance Use Topics Alcohol use: Not Currently Drug use: Never Objective Physical Exam Vitals and nursing note reviewed. 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 Constitutional: Appearance: Normal appearance. Cardiovascular: Rate and Rhythm: Normal rate. Pulmonary: Effort: Pulmonary effort is normal. Genitourinary: General: Normal vulva. Exam position: Lithotomy position. Labia: Right: Tenderness present. No rash or lesion. Left: Tenderness present. No rash or lesion. Vagina: Erythema and tenderness present. No vaginal discharge. Cervix: Erythema present. No discharge or cervical bleeding. Skin: General: Skin is warm and dry. Neurological: Mental Status: She is alert. ASSESSMENT/PLAN: 1. Vaginal burning - ICD9: 625.8, ICD10: N94.89 (primary diagnosis) - ITZ/TRICHOMONAS NAAT - BACTERIAL VAGINOSIS NAAT 2. Acute cystitis with hematuria - ICD9: 595.0, ICD10: N30.01 - URINE CULTURE - NITROFURANTOIN MONOHYDRATE AND MACROCRYSTAL 100 MG ORAL CAP Office Visit on 06/23/2024 Component Date Value Ref Range Status GLUCOSE UA (POCT) 06/23/2024 500 (A) Negative mg/dL Final BILIRUBIN UA (POCT) 06/23/2024 Negative Negative Final KETONE UA (POCT) 06/23/2024 Negative Negative mg/dL Final SPECIFIC GRAVITY UA (POCT) 06/23/2024 1.015 1.005 - 1.030 Final HEMOGLOBIN/BLOOD UA (POCT) 06/23/2024 Trace-intact (A) Negative Final PH UA (POCT) 06/23/2024 5.5 4.5 - 8.0 Final PROTEIN UA (POCT) 06/23/2024 Negative Negative mg/dL Final UROBILINOGEN UA (POCT) 06/23/2024 0.2 Normal E.U./dL Final NITRITE UA (POCT) 06/23/2024 Negative Negative Final LEUKOCYTES UA (POCT) 06/23/2024 Moderate (A) Negative Final COLOR UA (POCT) 06/23/2024 Yellow Final CLARITY UA (POCT) 06/23/2024 Clear Final 3. Dysuria - ICD9: 788.1, ICD10: R30.0 acute - UA positive for heriberto esterase, hematuria, and glucose - Send urine for culture - Begin treatment with Macrobid 100 mg BID for 5 days - UA DIP, URINE (POC) 4. Vaginal discharge - ICD9: 623.5, ICD10: N89.8 - suspect yeast infection; vaginal tissues are erythematous and tender. - GONORRHEA/CHLAMYDIA NAAT - FLUCONAZOLE 150 MG TABLET 5. Common cold virus - ICD9: 460, ICD10: J00 - [id number] 2 MG-30 MG-10 MG/5 ML ORAL SYRUP 6. Glucosuria - ICD9: 791.5, ICD10: R81 - patient with history of T2DM; last HgA1C was 7. Follow up with P (more content not included)...[facility]09-25-2024 History of Present illness Narrative* Michelle Mcwilliams APRN.DIVEMASTER - 06/23/2024 9:02 AM EDT Subjective Nasal Congestion Associated symptoms include congestion, coughing, ear pain (pressure) and a sore throat. Donna Mcmahon is a 23 year old female who presents with cough, bilateral ear pressure, nasal congestion and intermittent sore throat for the past 2 days. She has not had a fever. She is also having dysuria, vaginal burning, itching and discharge for the past 3 or 4 days. She is currently sexually active. She has had a new partner recently. She does not use condoms. Sheis on Depo for control. Review of Systems Constitutional: Negative for fever. HENT: Positive for congestion, ear pain (pressure) and sore throat. Respiratory: Positive for cough. Cardiovascular: Negative. Genitourinary: Positive for dysuria. Negative for flank pain, frequency, hematuria and urgency. See HPI Musculoskeletal: Negative for myalgias. BP 124/90 Pulse 104 Temp 37.1 C (98.7 F) Resp 16 Wt 110.4 kg (243 lb 6.2 oz) LMP (LMP Unknown) SpO2 99% BMI 40.50 kg/m PAST MEDICAL HISTORY Diagnosis Date Mild intermittent asthma without complication PCOS (polycystic ovarian syndrome) PAST SURGICAL HISTORY Procedure Laterality Date STRABISMUS SURG PT W SCAR EO MUSCL ALLERGIES Amoxicillin-Pot Clavulanate and Vancomycin MEDICATIONS metFORMIN ER (GLUCOPHAGE XR) 500 mg 24 hr tablet Take 1 tablet by mouth daily with breakfast. albuterol HFA (PROVENTIL HFA, VENTOLIN HFA) 90 mcg/actuation inhaler Inhale 2 Puffs as instructed every 4 hours as needed. blood sugar diagnostic (BLOOD GLUCOSE TEST) test strip Test blood sugar(s) one times daily. Dx: Type 2 DM - Controlled E11.9 Insulin: No medroxyPROGESTERone (DEPO-PROVERA) 150 mg/mL albuterol (PROVENTIL) 2.5 mg /3 mL (0.083 %) nebulizer solution Use 3 mL via nebulizer every 4 hours as needed for wheezing/shortness of breath. valACYclovir (VALTREX) 500 mg tablet Take 500 mg by mouth twice daily. cetirizine (ZYRTEC) 10 mg tablet Take 1 tablet by mouth once daily. Lancets lancets Test blood sugar(s) one times daily. Dx: Type 2 DM - Controlled E11.9 Insulin: No sertraline (ZOLOFT) 100 mg tablet Take 1 tablet by mouth once daily. (Patient not taking: Reported on 02/07/2024) FAMILY HISTORY Problem Relation Age of Onset Hypertension Father Social History Tobacco Use Smoking status: Never Smokeless tobacco: Never Vaping Use Vaping status: Never Used Substance Use Topics Alcohol use: Not Currently Drug use: Never Objective Physical Exam Vitals and nursing note reviewed. 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 Constitutional: Appearance: Normal appearance. Cardiovascular: Rate and Rhythm: Normal rate. Pulmonary: Effort: Pulmonary effort is normal. Genitourinary: General: Normal vulva. Exam position: Lithotomy position. Labia: Right: Tenderness present. No rash or lesion. Left: Tenderness present. No rash or lesion. Vagina: Erythema and tenderness present. No vaginal discharge. Cervix: Erythema present. No discharge or cervical bleeding. Skin: General: Skin is warm and dry. Neurological: Mental Status: She is alert. ASSESSMENT/PLAN: 1. Vaginal burning - ICD9: 625.8, ICD10: N94.89 (primary diagnosis) - ITZ/TRICHOMONAS NAAT - BACTERIAL VAGINOSIS NAAT 2. Acute cystitis with hematuria - ICD9: 595.0, ICD10: N30.01 - URINE CULTURE - NITROFURANTOIN MONOHYDRATE & MACROCRYSTAL 100 MG ORAL CAP Office Visit on 06/23/2024 Component Date Value Ref Range Status GLUCOSE UA (POCT) 06/23/2024 500 (A) Negative mg/dL Final BILIRUBIN UA (POCT) 06/23/2024 Negative Negative Final KETONE UA (POCT) 06/23/2024 Negative Negative mg/dL Final SPECIFIC GRAVITY UA (POCT) 06/23/2024 1.015 1.005 - 1.030 Final HEMOGLOBIN/BLOOD UA (POCT) 06/23/2024 Trace-intact (A) Negative Final PH UA (POCT) 06/23/2024 5.5 4.5 - 8.0 Final PROTEIN UA (POCT) 06/23/2024 Negative Negative mg/dL Final UROBILINOGEN UA (POCT) 06/23/2024 0.2 Normal E.U./dL Final NITRITE UA (POCT) 06/23/2024 Negative Negative Final LEUKOCYTES UA (POCT) 06/23/2024 Moderate (A) Negative Final COLOR UA (POCT) 06/23/2024 Yellow Final CLARITY UA (POCT) 06/23/2024 Clear Final 3. Dysuria - ICD9: 788.1, ICD10: R30.0 acute - UA positive for heriberto esterase, hematuria, and glucose - Send urine for culture - Begin treatment with Macrobid 100 mg BID for 5 days - UA DIP, URINE (POC) 4. Vaginal discharge - ICD9: 623.5, ICD10: N89.8 - suspect yeast infection; vaginal tissues are erythematous and tender. - GONORRHEA/CHLAMYDIA NAAT - FLUCONAZOLE 150 MG TABLET 5. Common cold virus - ICD9: 460, ICD10: J00 - ENJUCXABWNOUZKT-[id number]-WF 2 MG-30 MG-10 MG/5 ML ORAL SYRUP 6. Glucosuria - ICD9: 791.5, ICD10: R81 - patient with history of T2DM; last HgA1C was 7. Follow up with PCP for medication monitoring. - Follow-up with your PCP in 3-5 days if symptoms have not improved or sooner if symptoms worsen - Discussed red flags and need for immediate medical evaluation if any occur. - Discussed supportive care treatment with fluids, rest and analgesia. - Discussed expected course of illness' Michelle Mcwilliams APRN.CUCO documented in [facility] encounter[facility] Instructions* Patient Instructions* PodlogYing anglin APRN.CNP - 04/09/2024 10:12 AM EDT Images from the original note were not included. To schedule a diabetic eye exam at the [facility], please call: [phone] Online resources to learn more [email or web address]/diabetes/complications/[email or web address]-complications https://www.aoa.org/healthy-eyes/bnh-ewz-odqoma-conditions/diabetic-retinopathy? sso=y [email or web address] References 1. National Diabetes Statistics Report 2020: Estimates of Diabetes and Its Reading in the [facility]. Center for Disease Control and Prevention; 2020. Available at: https://www.cdc.gov/diabetes/pdfs /data/statistics/xdxnnwcj-qjlfbnbv-hzywlzofee-report.pdf 2. Aiyana Burns, Tammy Merrill, Kade Moreno, Carolin Hummel, Ladonna Pena, Alejandro Barrera, Ricky Saleh, Tony Farley; Diabetic Retinopathy: A Position Statement by the [place] Diabetes Association. Diabetes Care 27 November 2016; 40 (3): 412-418 documented in this encounterCommunity [facility]07-[facility]-2024 NoteHNO ID: [id number] Author: YING PIÑA APRN.CUCO Service: ? Author Type: Nurse Practitioner Type: Progress Notes Filed: 04/09/2024 10:15 Note Text: 04/09/2024 Patient presents with: Follow Up SUBJECTIVE: This is a 23 year old that is here today for Above Complaints. Patient was concerned about hypoglycemia at last office visit on 12/10/2023. She was to track blood sugars and return in one month. Since last office visit she went to [facility] this week for routine pap smear and she reports they completed a urine sample which showed sugar in urine. Told to come to PCP to discuss. Checking blood sugars every other day 1-2 times per day. Reports some reading over 200. Has not had any more lows. Admits to polyuria but she reports she drinks a lot of water to stay hydrated. She reports she has not been eating well lately- eating more fast food. Tries to stay away from pop. She had previously been on Metformin but had stopped and was doing well controlling blood sugars with diet. Denies visual changes or extremity numbness/tingling. Has not completed dilated eye exam for some time. Has gained about 30# since last May. Not exercising anymore PAST MEDICAL HISTORY Diagnosis Date Mild intermittent asthma without complication PCOS (polycystic ovarian syndrome) ALLERGIES Amoxicillin-Pot Clavulanate and Vancomycin MEDICATIONS Current Outpatient Medications Medication Sig albuterol HFA (PROVENTIL HFA, VENTOLIN HFA) 90 mcg/actuation inhaler Inhale 2 Puffs as instructed every 4 hours as needed. blood sugar diagnostic (BLOOD GLUCOSE TEST) test strip Test blood sugar(s) one times daily. Dx: Type 2 DM - Controlled E11.9 Insulin: No sertraline (ZOLOFT) 100 mg tablet Take 1 tablet by mouth once daily. (Patient not taking: Reported on 02/07/2024) clindamycin (CLEOCIN) 300 mg capsule Take 1 capsule by mouth three times daily. (Patient not taking: Reported on 02/07/2024) medroxyPROGESTERone (DEPO-PROVERA) 150 mg/mL albuterol (PROVENTIL) 2.5 mg /3 mL (0.083 %) nebulizer solution Use 3 mL via nebulizer every 4 hours as needed for wheezing/shortness of breath. valACYclovir (VALTREX) 500 mg tablet Take 500 mg by mouth twice daily. naproxen (NAPROSYN) 500 mg tablet Take 1 tablet by mouth twice daily with meals. Take with food. (Patient not taking: Reported on 02/07/2024) cetirizine (ZYRTEC) 10 mg tablet Take 1 tablet by mouth once daily. Lancets lancets Test blood sugar(s) one times daily. Dx: Type 2 DM - Controlled E11.9 Insulin: No No current facility-administered medications for this visit. Medications and allergies reviewed by this provider. SOCIAL HISTORY Social History Tobacco Use Smoking status: Never Smokeless tobacco: Never Vaping Use Vaping Use: Never used Substance Use Topics Alcohol use: Not Currently Drug use: Never REVIEW OF SYSTEMS All other reviewed and negative other than HPI. OBJECTIVE: BP 130/88 Pulse 97 Resp 16 Wt 104.9 kg (231 lb 3.2 oz) LMP (LMP Unknown) SpO2 98% BMI 38.47 kg/m? . Vital signs reviewed by this provider. APPEARANCE Well appearing, alert, in no acute distress, well-hydrated, well nourished. EYES conjunctiva and sclera normal. HEART RRR with normal S1 and S2, no murmurs, no gallops, no JVD appreciated LUNG clear to auscultation. No wheezes, rhonchi or rales EXTREMITIES Extremities normal, No deformities, No skin discoloration, No edema, and Normal pulses bilaterally. SKIN Skin color, texture, turgor normal, no suspicious rashes or lesions to exposed skin Latest Ref Rng 12/10/2023 01/07/2024 Protein, Total 6.3 - 8.0 g/dL 7.1 Albumin 3.9 - 4.9 g/dL 4.1 Calcium 8.5 - 10.2 mg/dL 9.5 Bilirubin, Total 0.2 - 1.3 mg/dL 0.2 Alkaline Phosphatase 34 - 123 U/L 97 AST 13 - 35 U/L 19 ALT 7 - 38 U/L 15 Glucose 74 - 99 mg/dL 71 (L) BUN 7 - 21 mg/dL 17 Creatinine 0.58 - 0.96 mg/dL 0.68 Sodium 136 - 144 mmol/L 138 Potassium 3.7 - 5.1 mmol/L 4.1 Chloride 97 - 105 mmol/L 104 CO2 22 - 30 mmol/L 24 Anion Gap 9 - 18 mmol/L 10 eGFR >=60 mL/min/1.73m? 126 Cholesterol, Total <200 mg/dL 171 Triglyceride <150 mg/dL 260 (H) HDL Cholesterol >39 mg/dL 32 (L) Non HDL Cholesterol <130 mg/dL 139 (H) Fasting Time hrs 12 VLDL Cholesterol <30 mg/dL 52 (H) TC:HDL Ratio <5.10 5.34 (H) LDL Cholesterol <100 mg/dL 87 LDL:HDL Ratio <2.54 2.72 (H) Creatinine, Ur Random (UCRR) 20.0 - 300.0 mg/dL 97.3 Albumin, Urine Random mg/L 26.5 Albumin/Creat Ratio <30 mg/g 27 Hemoglobin A1C 4.3 - 5.6 % 5.5 Estimated Average Glucose mg/dL 111 Legend: (L) Low (H) High Pneumococcal Vaccine(1 of 2 - PCV) due on 2007 Dilated Retinal Exam Never done Cervical Cancer Screening Never done Covid-19 Vaccine(2022-24 season) Never done Behavioral Health Screening Never done GC (Gonorrhea) Screening (18-24) due on 01/04/2024 Chlamydia Screening (18-24) due on 01/04/2024 DTaP,Tdap,Td Vaccine(7 - Td or Tdap) due on 05/11/2024 (more content not included)...[facility]07-12-[facility]24 History of Present illness Narrative* Ying Piña APRN.DIVEMASTER - 04/09/2024 9:47 AM EDT 04/09/2024 Patient presents with: Follow Up SUBJECTIVE: This is a 23 year old that is here today for Above Complaints. Patient was concerned about hypoglycemia at last office visit on 12/10/2023. She was to track bloodsugars and return in one month. Since last office visit she went to [facility] this week for routine pap smear and she reports they completed a urine sample which showed sugar in urine. Told to come to PCP to discuss. Checking blood sugars every other day 1-2 times per day. Reports some reading over 200. Has not hadany more lows. Admits to polyuria but she reports she drinks a lot of water to stay hydrated. She reports she has not been eating well lately- eating more fast food. Tries to stay away from pop. She had previously been on Metformin but had stopped and was doing well controlling blood sugars with diet. Denies visual changes or extremity numbness/tingling. Has not completed dilated eye exam for some time. Has gained about 30# since last May. Not exercising anymore PAST MEDICAL HISTORY Diagnosis Date Mild intermittent asthma without complication PCOS (polycystic ovarian syndrome) ALLERGIES Amoxicillin-Pot Clavulanate and Vancomycin MEDICATIONS Current Outpatient Medications Medication Sig albuterol HFA (PROVENTIL HFA, VENTOLIN HFA) 90 mcg/actuation inhaler Inhale 2 Puffs as instructed every 4 hours as needed. blood sugar diagnostic (BLOOD GLUCOSE TEST) test strip Test blood sugar(s) one times daily. Dx: Type 2 DM - Controlled E11.9 Insulin: No sertraline (ZOLOFT) 100 mg tablet Take 1 tablet by mouth once daily. (Patient not taking: Reported on 02/07/2024) clindamycin (CLEOCIN) 300 mg capsule Take 1 capsule by mouth three times daily. (Patient not taking: Reported on 02/07/2024) medroxyPROGESTERone (DEPO-PROVERA) 150 mg/mL albuterol (PROVENTIL) 2.5 mg /3 mL (0.083 %) nebulizer solution Use 3 mL via nebulizer every 4 hours as needed for wheezing/shortness of breath. valACYclovir (VALTREX) 500 mg tablet Take 500 mg by mouth twice daily. naproxen (NAPROSYN) 500 mg tablet Take 1 tablet by mouth twice daily with meals. Take with food. (Patient not taking: Reported on 02/07/2024) cetirizine (ZYRTEC) 10 mg tablet Take 1 tablet by mouth once daily. Lancets lancets Test blood sugar(s) one times daily. Dx: Type 2 DM - Controlled E11.9 Insulin: No No current facility-administered medications for this visit. Medications and allergies reviewed by this provider. SOCIAL HISTORY Social History Tobacco Use Smoking status: Never Smokeless tobacco: Never Vaping Use Vaping Use: Never used Substance Use Topics Alcohol use: Not Currently Drug use: Never REVIEW OF SYSTEMS All other reviewed and negative other than HPI. OBJECTIVE: BP 130/88 Pulse 97 Resp 16 Wt 104.9 kg (231 lb 3.2 oz) LMP (LMP Unknown) SpO2 98% BMI 38.47 kg/m . Vital signs reviewed by this provider. APPEARANCE Well appearing, alert, in no acute distress, well-hydrated, well nourished. EYES conjunctiva and sclera normal. HEART RRR with normal S1 and S2, no murmurs, no gallops, no JVD appreciated LUNG clear to auscultation. No wheezes, rhonchi or rales EXTREMITIES Extremities normal, No deformities, No skin discoloration, No edema, and Normal pulses bilaterally. SKIN Skin color, texture, turgor normal, no suspicious rashes or lesions to exposed skin Latest Ref Rng 12/10/2023 01/07/2024 Protein, Total 6.3 - 8.0 g/dL 7.1 Albumin 3.9 - 4.9 g/dL 4.1 Calcium 8.5 - 10.2 mg/dL 9.5 Bilirubin, Total 0.2 - 1.3 mg/dL 0.2 Alkaline Phosphatase 34 - 123 U/L 97 AST 13 - 35 U/L 19 ALT 7 - 38 U/L 15 Glucose 74 - 99 mg/dL 71 (L) BUN 7 - 21 mg/dL 17 Creatinine 0.58 - 0.96 mg/dL 0.68 Sodium 136 - 144 mmol/L 138 Potassium 3.7 - 5.1 mmol/L 4.1 Chloride 97 - 105 mmol/L 104 CO2 22 - 30 mmol/L 24 Anion Gap 9 - 18 mmol/L 10 eGFR >=60 mL/min/1.73m 126 Cholesterol, Total <200 mg/dL 171 Triglyceride <150 mg/dL 260 (H) HDL Cholesterol >39 mg/dL 32 (L) Non HDL Cholesterol <130 mg/dL 139 (H) Fasting Time hrs 12 VLDL Cholesterol <30 mg/dL 52 (H) TC:HDL Ratio <5.10 5.34 (H) LDL Cholesterol <100 mg/dL 87 LDL:HDL Ratio <2.54 2.72 (H) Creatinine, Ur Random (UCRR) 20.0 - 300.0 mg/dL 97.3 Albumin, Urine Random mg/L 26.5 Albumin/Creat Ratio <30 mg/g 27 Hemoglobin A1C 4.3 - 5.6 % 5.5 Estimated Average Glucose mg/dL 111 Legend: (L) Low (H) High Pneumococcal Vaccine(1 of 2 - PCV) due on 2007 Dilated Retinal Exam Never done Cervical Cancer Screening Never done Covid-19 Vaccine( - 2022-24 season) Never done Behavioral Health Screening Never done GC (Gonorrhea) Screening (18-24) due on 01/04/2024 Chlamydia Screening (18-24) due on 01/04/2024 DTaP,Tdap,Td Vaccine(7 - Td or Tdap) due on 05/11/2024 Influenza Vaccine(1) due on 05/30/2024 HbA1C due on 10/10/2024 Annual PCP Team Chronic Disease Visit due on 12/09/2024 Urine Albumin:Creatinine Ratio due on 01/06/2025 LDL Cholesterol due on 01/06/2025 Diabetic Foot Exam due on 04/09/2025 Hepatitis B Vaccine Completed HPV Vaccine Completed Hepatitis C Screening Completed HIV Screening Completed Meningococcal B Vaccine: Consider Based On Risk Discontinued ASSESSMENT/PLAN: 1. Type 2 diabetes mellitus without complication, without long-term current use of insulin (HCC) - ICD9: 250.00, ICD10: E11.9 - Uncontrolled - Start metformin ER - Blood glucose monitoring on a twice daily schedule - Counseled on healthy diet and regular exercise - Discussed need for and benefit of weight loss. BMI 38.47 kg/(m^2) - Follow up in 3 months, sooner should any other issues arise. - METFORMIN ER 500 MG TABLET,EXTENDED RELEASE 24 HR - HEMOGLOBIN A1C (POC) Ying Piña APRN.CNP Prescription instructions reviewed with patient as applicable. Patient advised if symptoms do not improve or if symptoms worsen sooner, to contact their primary care physician. Potential red flag symptoms discussed with the patient. Reviewed appropriate action plan to take if red flag symptoms occur. Patient agreeable to treatment plan. Medical Decision Making: Problems: Moderate: 1+ chronic illnesses with change Data: Unique test(s) ordered: 1 Risk: Moderate: Drug management Medical Decision Making Level: 4 - Moderate documented in this encounterCommunity [facility]07-[facility] Telephone encounter Note * Telephone Encounter - Bindu Bhakta - 03/30/2024 9:45 AM EDT Prescription Refill Information The patient has been identified by name and date of : Yes Caregiver verified no other encounters exist for this prescription request: Yes Caregiver confirmed with patient/requestor that no other refills are due, in the near future, with this provider at this time: Yes The last office visit in the department: 12-10-23 Does the patient have a future office visit with this provider/department: No Requested Prescriptions Pending Prescriptions Disp Refills albuterol HFA (PROVENTIL HFA, VENTOLIN HFA) 90 mcg/actuation inhaler 1 Each 0 Sig: Inhale 2 Puffs as instructed every 4 hours as needed. blood sugar diagnostic (BLOOD GLUCOSE TEST) test strip 50 Strip 11 Sig: Test blood sugar(s) one times daily. Dx: Type 2 DM - Controlled E11.9 Insulin: No Bindu Benitez March 30, 2024 9:46 AM [facility] Miscellaneous Notes* Telephone Encounter - Bindu Bhakta - 03/30/2024 9:45 AM EDT Prescription Refill Information The patient has been identified by name and date of : Yes Caregiver verified no other encounters exist for this prescription request: Yes Caregiver confirmed with patient/requestor that no other refills are due, in the near future, with this provider at this time: Yes The last office visit in the department: 12-10-23 Does the patient have a future office visit with this provider/department: No Requested Prescriptions Pending Prescriptions Disp Refills albuterol HFA (PROVENTIL HFA, VENTOLIN HFA) 90 mcg/actuation inhaler 1 Each 0 Sig: Inhale 2 Puffs as instructed every 4 hours as needed. blood sugar diagnostic (BLOOD GLUCOSE TEST) test strip 50 Strip 11 Sig: Test blood sugar(s) one times daily. Dx: Type 2 DM - Controlled E11.9 Insulin: No Bindu Benitez March 30, 2024 9:46 AM documented in this encounterCommunity [facility]06-30-2024 NoteHNO ID: [id number] Author: DARREL GREENFIELD APRN.DIVEMASTER Service: ? Author Type: Nurse Practitioner Type: Progress Notes Filed: 03/28/2024 13:05 Note Text: CC: Patient presents with: Cough: x 2 days, causing sore throat HPI: Donna Mcmahon is a 23 year old female who presents to the office with complaint of cough, nonproductive and sore throat for a few days. Symptoms are staying the same. Associated symptoms includes sore throat. Denies fever, ear pain, wheezing, dyspnea, nausea, vomiting , pleuritic pain, and diarrhea. Treatments tried include nothing so far. with no relief of symptoms. Sick contacts: unknown. History of asthma, frequent episodes of bronchitis, chronic bronchitis, bronchiectasis or COPD: No Smoker: No Seasonal/environmental allergies: No The ROS is otherwise negative. The patient's pmh, medications, allergies, and past visits are reviewed. PHYSICAL EXAM: BP 128/80 Pulse 102 Temp 37 ?C (98.6 ?F) Resp 16 Wt 103.8 kg (228 lb 13.4 oz) LMP (LMP Unknown) SpO2 97% BMI 38.08 kg/m? General appearance: alert, cooperative, pleasant, in no acute distress Head: Normocephalic Eyes: EOM's intact, conjunctiva pink and moist, no icterus, sclera white, non-injected Ears: Right ear: External ear/canal- Normal, TM - clear with good landmarks. Left ear: External ear/canal- Normal, TM - clear with good landmarks Oropharynx:mild erythema, without exudates present Heart: Negative. RRR without obvious murmur, gallop, or rubs. No ectopy. Lungs: clear to auscultation, without rales or wheeze, good air exchange PAST MEDICAL HISTORY Diagnosis Date Mild intermittent asthma without complication PCOS (polycystic ovarian syndrome) PAST SURGICAL HISTORY Procedure Laterality Date STRABISMUS SURG PT W SCAR EO MUSCL ALLERGIES Amoxicillin-Pot Clavulanate and Vancomycin MEDICATIONS medroxyPROGESTERone (DEPO-PROVERA) 150 mg/mL blood sugar diagnostic (BLOOD GLUCOSE TEST) test strip Test blood sugar(s) one times daily. Dx: Type 2 DM - Controlled E11.9 Insulin: No albuterol (PROVENTIL) 2.5 mg /3 mL (0.083 %) nebulizer solution Use 3 mL via nebulizer every 4 hours as needed for wheezing/shortness of breath. valACYclovir (VALTREX) 500 mg tablet Take 500 mg by mouth twice daily. cetirizine (ZYRTEC) 10 mg tablet Take 1 tablet by mouth once daily. Lancets lancets Test blood sugar(s) one times daily. Dx: Type 2 DM - Controlled E11.9 Insulin: No sertraline (ZOLOFT) 100 mg tablet Take 1 tablet by mouth once daily. (Patient not taking: Reported on 02/07/2024) clindamycin (CLEOCIN) 300 mg capsule Take 1 capsule by mouth three times daily. (Patient not taking: Reported on 02/07/2024) albuterol HFA (PROVENTIL HFA, VENTOLIN HFA) 90 mcg/actuation inhaler Inhale 2 Puffs as instructed every 4 hours as needed. naproxen (NAPROSYN) 500 mg tablet Take 1 tablet by mouth twice daily with meals. Take with food. (Patient not taking: Reported on 02/07/2024) FAMILY HISTORY Problem Relation Age of Onset Hypertension Father Social History Tobacco Use Smoking status: Never Smokeless tobacco: Never Vaping Use Vaping Use: Never used Substance Use Topics Alcohol use: Not Currently Drug use: Never ASSESSMENT/PLAN: 1. Sore throat - ICD9: 462, ICD10: J02.9 (primary diagnosis) - STREP A MOLECULAR (POC) - neg 2. Acute cough - ICD9: 786.2, ICD10: R05.1 - BENZONATATE 100 MG CAPSULE Most likely viral in nature Prescription instructions reviewed with patient as applicable. Potential red flag symptoms discussed with the patient. Reviewed appropriate action plan to take if red flag symptoms occur. Patient agreeable to treatment plan. Darrel Greenfield APRN.[facility]06-30-2024 History of Present illness Narrative* Darrel Greenfield APRN.DIVEMASTER - 03/28/2024 12:44 PM EDT CC: Patient presents with: Cough: x 2 days, causing sore throat HPI: Donna Mcmahon is a 23 year old female who presents to the office with complaint of cough, nonproductive and sore throat for a few days. Symptoms are staying the same. Associated symptoms includes sore throat. Denies fever, ear pain, wheezing, dyspnea, nausea, vomiting , pleuritic pain, and diarrhea. Treatments tried include nothing so far. with no relief of symptoms. Sick contacts: unknown. History of asthma, frequent episodes of bronchitis, chronic bronchitis, bronchiectasis or COPD: No Smoker: No Seasonal/environmental allergies: No The ROS is otherwise negative. The patient's pmh, medications, allergies, and past visits are reviewed. PHYSICAL EXAM: BP 128/80 Pulse 102 Temp 37 C (98.6 F) Resp 16 Wt 103.8 kg (228 lb 13.4 oz) LMP (LMP Unknown) SpO2 97% BMI 38.08 kg/m General appearance: alert, cooperative, pleasant, in no acute distress Head: Normocephalic Eyes: EOM's intact, conjunctiva pink and moist, no icterus, sclera white, non-injected Ears: Right ear: External ear/canal- Normal, TM - clear with good landmarks. Left ear: External ear/canal- Normal, TM - clear with good landmarks Oropharynx:mild erythema, without exudates present Heart: Negative. RRR without obvious murmur, gallop, or rubs. No ectopy. Lungs: clear to auscultation, without rales or wheeze, good air exchange PAST MEDICAL HISTORY Diagnosis Date Mild intermittent asthma without complication PCOS (polycystic ovarian syndrome) PAST SURGICAL HISTORY Procedure Laterality Date STRABISMUS SURG PT W SCAR EO MUSCL ALLERGIES Amoxicillin-Pot Clavulanate and Vancomycin MEDICATIONS medroxyPROGESTERone (DEPO-PROVERA) 150 mg/mL blood sugar diagnostic (BLOOD GLUCOSE TEST) test strip Test blood sugar(s) one times daily. Dx: Type 2 DM - Controlled E11.9 Insulin: No albuterol (PROVENTIL) 2.5 mg /3 mL (0.083 %) nebulizer solution Use 3 mL via nebulizer every 4 hours as needed for wheezing/shortness of breath. valACYclovir (VALTREX) 500 mg tablet Take 500 mg by mouth twice daily. cetirizine (ZYRTEC) 10 mg tablet Take 1 tablet by mouth once daily. Lancets lancets Test blood sugar(s) one times daily. Dx: Type 2 DM - Controlled E11.9 Insulin: No sertraline (ZOLOFT) 100 mg tablet Take 1 tablet by mouth once daily. (Patient not taking: Reported on 02/07/2024) clindamycin (CLEOCIN) 300 mg capsule Take 1 capsule by mouth three times daily. (Patient not taking: Reported on 02/07/2024) albuterol HFA (PROVENTIL HFA, VENTOLIN HFA) 90 mcg/actuation inhaler Inhale 2 Puffs as instructed every 4 hours as needed. naproxen (NAPROSYN) 500 mg tablet Take 1 tablet by mouth twice daily with meals. Take with food. (Patient not taking: Reported on 02/07/2024) FAMILY HISTORY Problem Relation Age of Onset Hypertension Father Social History Tobacco Use Smoking status: Never Smokeless tobacco: Never Vaping Use Vaping Use: Never used Substance Use Topics Alcohol use: Not Currently Drug use: Never ASSESSMENT/PLAN: 1. Sore throat - ICD9: 462, ICD10: J02.9 (primary diagnosis) - STREP A MOLECULAR (POC) - neg 2. Acute cough - ICD9: 786.2, ICD10: R05.1 - BENZONATATE 100 MG CAPSULE Most likely viral in nature Prescription instructions reviewed with patient as applicable. Potential red flag symptoms discussed with the patient. Reviewed appropriate action plan to take if red flag symptoms occur. Patient agreeable to treatment plan. Darrel Greenfield APRN.CUCO documented [facility] History of Present illness Narrative* Darrel Greenfield APRN.CNP - 02/13/2024 2:41 PM EDT CC: Patient presents with: Ear Pain HPI: Donna Mcmahon is a 23 year old female who presents to the office with complaint of respiratory symptoms and ear symptoms for a week. Symptoms are worsening Associated symptoms includes ear pain. Denies fever, nausea, vomiting , and diarrhea. Treatments tried include Omnicef with no relief of symptoms. Sick contacts: unknown. History of asthma, frequent episodes of bronchitis, chronic bronchitis, bronchiectasis or COPD: No Smoker: No Seasonal/environmental allergies: No The ROS is otherwise negative. The patient's pmh, medications, allergies, and past visits are reviewed. PHYSICAL EXAM: BP 136/70 Pulse 101 Temp 36.8 C (98.2 F) Resp 18 Wt 101.7 kg (224 lb 3.3 oz) LMP (LMP Unknown) SpO2 99% BMI 37.31 kg/m General appearance: alert, cooperative, pleasant, in no acute distress Head: Normocephalic Eyes: EOM's intact, conjunctiva pink and moist, no icterus, sclera white, non-injected Ears: Right ear: External ear/canal- Normal, TM - clear with good landmarks. Left ear: External ear/canal- otitis externa, TM - erythematous Oropharynx:moist without lesions, No erythema, exudates or tonsillar hypertrophy. Heart: Negative. RRR without obvious murmur, gallop, or rubs. No ectopy. Lungs: clear to auscultation, without rales or wheeze, good air exchange PAST MEDICAL HISTORY Diagnosis Date Mild intermittent asthma without complication PCOS (polycystic ovarian syndrome) PAST SURGICAL HISTORY Procedure Laterality Date STRABISMUS SURG PT W SCAR EO MUSCL ALLERGIES Amoxicillin-Pot Clavulanate and Vancomycin MEDICATIONS cefdinir (OMNICEF) 300 mg capsule Take 1 capsule by mouth two times a day for 7 days. medroxyPROGESTERone (DEPO-PROVERA) 150 mg/mL blood sugar diagnostic (BLOOD GLUCOSE TEST) test strip Test blood sugar(s) one times daily. Dx: Type 2 DM - Controlled E11.9 Insulin: No albuterol (PROVENTIL) 2.5 mg /3 mL (0.083 %) nebulizer solution Use 3 mL via nebulizer every 4 hours as needed for wheezing/shortness of breath. valACYclovir (VALTREX) 500 mg tablet Take 500 mg by mouth twice daily. cetirizine (ZYRTEC) 10 mg tablet Take 1 tablet by mouth once daily. Lancets lancets Test blood sugar(s) one times daily. Dx: Type 2 DM - Controlled E11.9 Insulin: No doxycycline monohydrate 100 mg tablet Take 1 tablet by mouth two times a day for 7 days. tuoeisna-ashcrxduc-llcusbgzdofwkt (CORTISPORIN) 3.5-10,000-1 mg/mL-unit/mL-% otic suspension Use 3 Drops in the left ear four times daily for 5 days. sertraline (ZOLOFT) 100 mg tablet Take 1 tablet by mouth once daily. (Patient not taking: Reported on 02/07/2024) clindamycin (CLEOCIN) 300 mg capsule Take 1 capsule by mouth three times daily. (Patient not taking: Reported on 02/07/2024) albuterol HFA (PROVENTIL HFA, VENTOLIN HFA) 90 mcg/actuation inhaler Inhale 2 Puffs as instructed every 4 hours as needed. naproxen (NAPROSYN) 500 mg tablet Take 1 tablet by mouth twice daily with meals. Take with food. (Patient not taking: Reported on 02/07/2024) FAMILY HISTORY Problem Relation Age of Onset Hypertension Father Social History Tobacco Use Smoking status: Never Smokeless tobacco: Never Vaping Use Vaping Use: Never used Substance Use Topics Alcohol use: Not Currently Drug use: Never ASSESSMENT/PLAN: 1. Recurrent acute suppurative otitis media without spontaneous rupture of left tympanic membrane -ICD9: 382.00, ICD10: H66.005 - DOXYCYCLINE MONOHYDRATE 100 MG TABLET - GMZGYNTI-NUEUDADDU-PTKTCEMJQ 3.5 MG-10,000 UNIT/ML-1 % EAR DROPS,SUSP Prescription instructions reviewed with patient as applicable. Potential red flag symptoms discussed with the patient. Reviewed appropriate action plan to take if red flag symptoms occur. Patient agreeable to treatment plan. If this round of medication does not work patient will follow-up with primary care for further evaluation. Darrel Greenfield APRN.CUCO documented in [facility] History of Present illness Narrative* Darrel Greenfield APRN.CUCO - 02/07/2024 12:46 PM EDT CC: Patient presents with: Ear Pain: Left ear x 1 week, drainage and loss of hearing HPI: Donna Mcmahon is a 23 year old female who presents to the office with complaint of head congestion, sinus symptoms, and ear symptoms for a week. Symptoms are worsening Associated symptoms includes ear pain. Denies fever, nausea, vomiting , and diarrhea. Treatments tried include nothing so far. with no relief of symptoms. Sick contacts: unknown. History of asthma, frequent episodes of bronchitis, chronic bronchitis, bronchiectasis or COPD: No Smoker: No Seasonal/environmental allergies: No The ROS is otherwise negative. The patient's pmh, medications, allergies, and past visits are reviewed. PHYSICAL EXAM: BP 126/88 Pulse 93 Temp 36.6 C (97.8 F) Resp 20 Wt 101 kg (222 lb 10.6 oz) LMP (LMP Unknown) SpO2 98% BMI 37.05 kg/m General appearance: alert, cooperative, pleasant, in no acute distress Head: Normocephalic Eyes: EOM's intact, conjunctiva pink and moist, no icterus, sclera white, non-injected Ears: Right ear: External ear/canal- Normal, TM - erythematous, bulging. Left ear: External ear/canal- Normal, TM - erythematous Oropharynx:moist without lesions, No erythema, exudates or tonsillar hypertrophy. Heart: Negative. RRR without obvious murmur, gallop, or rubs. No ectopy. Lungs: clear to auscultation, without rales or wheeze, good air exchange PAST MEDICAL HISTORY Diagnosis Date Mild intermittent asthma without complication PCOS (polycystic ovarian syndrome) PAST SURGICAL HISTORY Procedure Laterality Date STRABISMUS SURG PT W SCAR EO MUSCL ALLERGIES Amoxicillin-Pot Clavulanate and Vancomycin MEDICATIONS medroxyPROGESTERone (DEPO-PROVERA) 150 mg/mL blood sugar diagnostic (BLOOD GLUCOSE TEST) test strip Test blood sugar(s) one times daily. Dx: Type 2 DM - Controlled E11.9 Insulin: No albuterol (PROVENTIL) 2.5 mg /3 mL (0.083 %) nebulizer solution Use 3 mL via nebulizer every 4 hours as needed for wheezing/shortness of breath. valACYclovir (VALTREX) 500 mg tablet Take 500 mg by mouth twice daily. cetirizine (ZYRTEC) 10 mg tablet Take 1 tablet by mouth once daily. Lancets lancets Test blood sugar(s) one times daily. Dx: Type 2 DM - Controlled E11.9 Insulin: No sertraline (ZOLOFT) 100 mg tablet Take 1 tablet by mouth once daily. (Patient not taking: Reported on 02/07/2024) clindamycin (CLEOCIN) 300 mg capsule Take 1 capsule by mouth three times daily. (Patient not taking: Reported on 02/07/2024) albuterol HFA (PROVENTIL HFA, VENTOLIN HFA) 90 mcg/actuation inhaler Inhale 2 Puffs as instructed every 4 hours as needed. naproxen (NAPROSYN) 500 mg tablet Take 1 tablet by mouth twice daily with meals. Take with food. (Patient not taking: Reported on 02/07/2024) FAMILY HISTORY Problem Relation Age of Onset Hypertension Father Social History Tobacco Use Smoking status: Never Smokeless tobacco: Never Vaping Use Vaping Use: Never used Substance Use Topics Alcohol use: Not Currently Drug use: Never ASSESSMENT/PLAN: 1. Acute otitis media, bilateral - ICD9: 382.9, ICD10: H66.93 - CEFDINIR 300 MG CAPSULE Prescription instructions reviewed with patient as applicable. Potential red flag symptoms discussed with the patient. Reviewed appropriate action plan to take if red flag symptoms occur. Patient agreeable to treatment plan. Darrel Greenfield APRN.CUCO documented in this [facility]Community [facility]04[facility] Telephone encounter Note * Telephone Encounter - Natalie Saunders MA - 01/27/2024 8:50 AM EDT Pt notified of results via [employer]. Natalie Saunders Ma [facility] Miscellaneous Notes* Telephone Encounter - Natalie Saunders MA - 01/27/2024 8:50 AM EDT Pt notified of results via [employer]. Natalie Saunders Ma * Telephone Encounter - Natalie Saunders MA - 01/27/2024 8:49 AM EDT ----- Message from Ying Piña APRN.CNP sent at 01/27/2024 7:29 AM EDT ----- Triglycerides elevated if she did not fully fast this could be why. Urine sample normal. Recommend reduction in overall calories and aim for at least 150 minutes of exercise per week. Ying Piña APRN.CNP documented in this encounterCommunity [facility]04-30-[facility] Telephone encounter Note * Telephone Encounter - Natalie Saunders MA - 01/27/2024 8:49 AM EDT ----- Message from Ying Piña APRN.CNP sent at 01/27/2024 7:29 AM EDT ----- Triglycerides elevated if she did not fully fast this could be why. Urine sample normal. Recommend reduction in overall calories and aim for at least 150 minutes of exercise per week. Ying Piña APRN.CNP [facility] History of Present illness Narrative* Ying Piña APRN.CNP - 12/10/2023 9:47 AM EDT 12/10/2023 Patient presents with: Blood Sugar Reading: Patient states she is getting low readings SUBJECTIVE: This is a 23 year old that is here today for Above Complaints.. Reports when at work she eats then a couple hours later her blood sugar will be low. Reports will be 80 when she checks it and when she leaves work it will be 60-80's. Occurs 3-4 times per week. Symptoms includes: headache, sweaty but is freezing, and hands get shaky. Does not happen at home. Usually treats with glucose tablets which helps but has to take the again about 1.5 hours later. Eating routine meals. Snacks on veggies PAST MEDICAL HISTORY Diagnosis Date Mild intermittent asthma without complication PCOS (polycystic ovarian syndrome) ALLERGIES Amoxicillin-Pot Clavulanate and Vancomycin MEDICATIONS Current Outpatient Medications Medication Sig sertraline (ZOLOFT) 100 mg tablet Take 1 tablet by mouth once daily. clindamycin (CLEOCIN) 300 mg capsule Take 1 capsule by mouth three times daily. medroxyPROGESTERone (DEPO-PROVERA) 150 mg/mL blood sugar diagnostic (BLOOD GLUCOSE TEST) test strip Test blood sugar(s) one times daily. Dx: Type 2 DM - Controlled E11.9 Insulin: No albuterol HFA (PROVENTIL HFA, VENTOLIN HFA) 90 mcg/actuation inhaler Inhale 2 Puffs as instructed every 4 hours as needed. albuterol (PROVENTIL) 2.5 mg /3 mL (0.083 %) nebulizer solution Use 3 mL via nebulizer every 4 hours as needed for wheezing/shortness of breath. valACYclovir (VALTREX) 500 mg tablet Take 500 mg by mouth twice daily. naproxen (NAPROSYN) 500 mg tablet Take 1 tablet by mouth twice daily with meals. Take with food. cetirizine (ZYRTEC) 10 mg tablet Take 1 tablet by mouth once daily. Lancets lancets Test blood sugar(s) one times daily. Dx: Type 2 DM - Controlled E11.9 Insulin: No No current facility-administered medications for this visit. Medications and allergies reviewed by this provider. SOCIAL HISTORY Social History Tobacco Use Smoking status: Never Smokeless tobacco: Never Vaping Use Vaping Use: Never used Substance Use Topics Alcohol use: Not Currently Drug use: Never REVIEW OF SYSTEMS All other reviewed and negative other than HPI. OBJECTIVE: BP 118/90 Pulse 80 Resp 18 Wt 99.2 kg (218 lb 9.6 oz) LMP (LMP Unknown) SpO2 97% BMI 36.38 kg/m . Vital signs reviewed by this provider. APPEARANCE Well appearing, alert, in no acute distress, well-hydrated, well nourished. Pneumococcal Vaccine(1 of 2 - PCV) due on 2007 Dilated Retinal Exam Never done Pap Testing Never done Influenza Vaccine(1) due on 05/30/2023 Covid-19 Vaccine(1 - 2022-24 season) Never done Diabetic Foot Exam due on 07/23/2023 HbA1C due on 08/30/2023 Depression Assessment due on 09/29/2023 GC (Gonorrhea) Screening (18-24) due on 01/04/2024 Chlamydia Screening (18-24) due on 01/04/2024 Urine Albumin:Creatinine Ratio due on 02/29/2024 LDL Cholesterol due on 02/29/2024 Annual PCP Team Chronic Disease Visit due on 03/31/2024 DTaP,Tdap,Td Vaccine(7 - Td or Tdap) due on 05/11/2024 Hepatitis B Vaccine Completed HPV Vaccine Completed Hepatitis C Screening Completed HIV Screening Completed Meningococcal B Vaccine: Consider Based On Risk Discontinued ASSESSMENT/PLAN: 1. Hypoglycemia - ICD9: 251.2, ICD10: E16.2 - has about 5 blood sugar readings 70-132 - will have her keep close track of readings - discussed treating low blood sugar with 4 ounces of juice followed by peanut butter crackers, recheck and repeat if blood sugar less than 80. For persistent, symptomatic low blood sugar go to ER - HGB A1C - COMP METABOLIC PANEL - follow-up in one month for routine visit Ying Piña APRN.CNP Prescription instructions reviewed with patient as applicable. Patient advised if symptoms do not improve or if symptoms worsen sooner, to contact their primary care physician. Potential red flag symptoms discussed with the patient. Reviewed appropriate action plan to take if red flag symptoms occur. Patient agreeable to treatment plan. Medical Decision Making: Problems: Moderate: New problem with uncertain prognosis Risk: Moderate: Moderate risk from testing/treatment Medical Decision Making Level: 4 - Moderate documented in [facility] History of Present illness Narrative* Darrel Greenfield APRN.CNP - 06/29/2023 2:52 PM EDT Images from the original note were not included. Subjective Patient came in with complaints of itching bumps on neck and left arm. Patient said they started yesterday. Patient also has a scratchy throat and runny nose that she woke up with. Patient denies anyother symptoms at this time. The history is provided by the patient. No teller vault was used. Review of Systems Constitutional: Negative. Skin: Negative. Objective Physical Exam Constitutional: Appearance: Normal appearance. HENT: Mouth/Throat: Tongue: No lesions. Palate: No mass. Pharynx: Oropharynx is clear. Tonsils: No tonsillar exudate. Pulmonary: Effort: Pulmonary effort is normal. Skin: Comments: Small raised erythematous areas consistent with insect bite. Neurological: Mental Status: She is alert. PAST MEDICAL HISTORY Diagnosis Date Mild intermittent asthma without complication PCOS (polycystic ovarian syndrome) PAST SURGICAL HISTORY Procedure Laterality Date STRABISMUS SURG PT W SCAR EO MUSCL ALLERGIES Amoxicillin-Pot Clavulanate and Vancomycin MEDICATIONS clindamycin (CLEOCIN) 300 mg capsule Take 1 capsule by mouth three times daily. medroxyPROGESTERone (DEPO-PROVERA) 150 mg/mL sertraline (ZOLOFT) 100 mg tablet Take 1 tablet by mouth once daily. blood sugar diagnostic (BLOOD GLUCOSE TEST) test strip Test blood sugar(s) one times daily. Dx: Type 2 DM - Controlled E11.9 Insulin: No albuterol (PROVENTIL) 2.5 mg /3 mL (0.083 %) nebulizer solution Use 3 mL via nebulizer every 4 hours as needed for wheezing/shortness of breath. valACYclovir (VALTREX) 500 mg tablet Take 500 mg by mouth twice daily. naproxen (NAPROSYN) 500 mg tablet Take 1 tablet by mouth twice daily with meals. Take with food. cetirizine (ZYRTEC) 10 mg tablet Take 1 tablet by mouth once daily. Lancets lancets Test blood sugar(s) one times daily. Dx: Type 2 DM - Controlled E11.9 Insulin: No albuterol HFA (PROVENTIL HFA, VENTOLIN HFA) 90 mcg/actuation inhaler Inhale 2 Puffs as instructed every 4 hours as needed. FAMILY HISTORY Problem Relation Age of Onset Hypertension Father Social History Tobacco Use Smoking status: Never Smokeless tobacco: Never Vaping Use Vaping Use: Never used Substance Use Topics Alcohol use: Not Currently Drug use: Never ASSESSMENT/PLAN: 1. Sore throat - ICD9: 462, ICD10: J02.9 (primary diagnosis) - STREP A MOLECULAR (POC) - neg 2. Skin irritation - ICD9: 709.9, ICD10: R23.8 - TRIAMCINOLONE ACETONIDE 0.025 % TOPICAL CREAM Patient educated about proper use of medication supportive therapies. Patient will not put medication on her face. Patient was okay with this care plan. Darrel Greenfield APRN.CUCO documented in this [facility] Hospital Discharge instructions Patient Education 06/17/2023 02:51:13 Headache, Unspecified Headache, Unspecified A number of things can cause headaches. The cause of your headache isn t clear. But it doesn t seemto be a sign of any serious illness. Headache affects almost everyone at some time. It is the most common reason people miss days from work or school. You could have a tension headache or a migraine headache. Stress can cause a tension headache. This can happen if you tense the muscles of your shoulders, neck, and scalp without knowing it. If this stress lasts long enough, you may develop a tension headache. It is not clear why migraines occur, but certain things called triggers can raise the risk of having a migraine attack. Migraine triggers may include emotional stress or depression, or by hormone changes during the menstrual cycle. Other triggers include control pills and other medicines, alcohol or caffeine, foods with tyramine (such as aged cheese, wine), eyestrain, weather changes, missed meals, and lack of sleep or oversleeping. Other causes of headache include: Viral illness with high fever Head injury with concussion Sinus, ear, or throat infection Dental pain and jaw joint (TMJ) pain More serious but less common causes of headache include stroke, brain hemorrhage, brain tumor, meningitis, and encephalitis. Home care Follow these tips when taking care of yourself at home: Don t drive yourself home if you were given pain medicine for your headache. Instead, have someone else drive you home. Try to sleep when you get home. You should feel much better when you wake up. Apply heat to the back of your neck to ease a neck muscle spasm. Take care of a migraine headache by putting an ice pack on your forehead or at the base of your skull. If you have nausea or vomiting, eat a light diet until your headache eases. If you have a migraine headache, use sunglasses when in the daylight or around bright indoor lighting until your symptoms get better. Bright glaring light can make this type of headache worse. Follow-up care Follow up with your healthcare provider, or as advised. Talk with your provider if you have frequent headaches. He or she can help figure out a treatment plan. By knowing the earliest signs of headache, and starting treatment right away, you may be able to stop the pain yourself. When to seek medical advice Call your healthcare provider right away if any of these occur: Your head pain suddenly gets worse after sexual intercourse or strenuous activity Your head pain doesn t get better within 24 hours You aren t able to keep liquids down (repeated vomiting) Fever of 100.4 F (38 C) or higher, or as directed by your healthcare provider Stiff neck Extreme drowsiness, confusion, or fainting Dizziness or dizziness with spinning sensation (vertigo) Weakness in an arm or leg or one side of your face You have trouble talking or seeing [id number] [employer]. [address] [place] [address]. All rights reserved. This information is not intended as a substitute for professional medical care. Always follow yourhealthcare professional's instructions. Follow Up Care 06/17/2023 02:39:02 With:YING PIÑA APRN.DIVEMASTER Address: [address] [place] [id number] [phone] When:2-4 days [facility] 09-19-2023 Note Discharge Instructions Thank you for allowing [facility] to assist you with your healthcare needs. The following is importantdischarge information regarding your hospital visit. Diagnosis from Today's Visit ALONZO - Headache Headache What to Do Next Instructions from Your Care Team No qualifying data available. Post Acute Orders No qualifying data available. You Need to Schedule the Following Appointments Follow Up with YING PIÑA APRN.CUCO When Within 2-4 days Where: [address] [facility] [place] [address] [phone] Allergies vancomycin Medications Please ask your primary doctor or pharmacist before taking any other medication not listed, including over the counter drugs, herbal medications, vitamins and or supplements as they may interact withyour home medications. What How Much When Why Instructions Last Dose Changed naproxen (Naprosyn 500 mg oral tablet) 1 tab(s) by mouth Twice daily with meals Changed naproxen (naproxen 250 mg oral tablet) 1 tab(s) by mouth Two (2) times a day Duration: 10 Days Printed Prescription Changed ondansetron (Zofran 4 mg oral tablet) 1 tab(s) by mouth Every 6 hours Viral syndrome Cough PRN nausea Changed ondansetron (Zofran ODT use ondansetron oral tablet, disintegrating ) 4 Milligram by mouth Every 8 hours Duration: 5 Days Printed Prescription Unchanged albuterol (albuterol 90 mcg/ inh inhalation powder) 1 puff(s) by inhalation Every 4 hours as needed for as needed Unchanged diphenhydrAMINE (Benadryl 25 mg oral capsule) 1 cap by mouth Four (4) times a day as needed for for itching Itching Unchanged metFORMIN (MetFORMIN (Eqv-Glucophage XR) 500 mg oral tablet, EXTENDED RELEASE) 1 tab(s) by mouth Once a day Unchanged valACYclovir (Valtrex 1 g oral tablet) 1 tab(s) by mouth Every 24 hours Duration: 7 Days Please take this list to your next doctor s visit. Bring all medications you take, including over the counter medications, herbals and other supplements with you to your doctor s visit. Patients and families are reminded to discard old lists and to update any records with all medication providers or retail pharmacies. Education Materials Headache, Unspecified A number of things can cause headaches. The cause of your headache isn t clear. But it doesn t seemto be a sign of any serious illness. Headache affects almost everyone at some time. It is the most common reason people miss days from work or school. You could have a tension headache or a migraine headache. Stress can cause a tension headache. This can happen if you tense the muscles of your shoulders, neck, and scalp without knowing it. If this stress lasts long enough, you may develop a tension headache. It is not clear why migraines occur, but certain things called triggers can raise the risk of having a migraine attack. Migraine triggers may include emotional stress or depression, or by hormone changes during the menstrual cycle. Other triggers include control pills and other medicines, alcohol or caffeine, foods with tyramine (such as aged cheese, wine), eyestrain, weather changes, missed meals, and lack of sleep or oversleeping. Other causes of headache include: Viral illness with high fever Head injury with concussion Sinus, ear, or throat infection Dental pain and jaw joint (TMJ) pain More serious but less common causes of headache include stroke, brain hemorrhage, brain tumor, meningitis, and encephalitis. Home care Follow these tips when taking care of yourself at home: Don t drive yourself home if you were given pain medicine for your headache. Instead, have someone else drive you home. Try to sleep when you get home. You should feel much better when you wake up. Apply heat to the back of your neck to ease a neck muscle spasm. Take care of a migraine headache by putting an ice pack on your forehead or at the base of your skull. If you have nausea or vomiting, eat a light diet until your headache eases. If you have a migraine headache, use sunglasses when in the daylight or around bright indoor lighting until your symptoms get better. Bright glaring light can make this type of headache worse. Follow-up care Follow up with your healthcare provider, or as advised. Talk with your provider if you have frequent headaches. He or she can help figure out a treatment plan. By knowing the earliest signs of headache, and starting treatment right away, you may be able to stop the pain yourself. When to seek medical advice Call your healthcare provider right away if any of these occur: Your head pain suddenly gets worse after sexual intercourse or strenuous activity Your head pain doesn t get better within 24 hours You aren t able to keep liquids down (repeated vomiting) Fever of 100.4 F (38 C) or higher, or as directed by your healthcare provider Stiff neck Extreme drowsiness, confusion, or fainting Dizziness or dizziness with spinning sensation (vertigo) Weakness in an arm or leg or one side of your face You have trouble talking or seeing [id number] [employer] [address] [place] [address], [place] [address]. All rights reserved. This information is not intended as a substitute for professional medical care. Always follow yourhealthcare professional's instructions. Additional Information VACCINATE! IT SAVES LIVES! Members of the community who have not yet received the COVID-19 vaccine and would like to receive it can visit one of [facility] vaccine clinics. There are many vaccine clinic locations within the [facility]. For locations and available times, please visit [email or web address] It is important to note that some COVID mobile vaccine clinics are held outdoors and may be canceled in rainy or stormy conditions. To learn more about pediatric vaccinations (ages 5-11), we invite you to visit the [employer] webpage. [email or web address] learn more about the COVID-19 vaccine, we invite you to visit the CDC website for a list of frequently asked questions. https://www.cdc.gov/coronavirus/2019-ncov/vaccines/faq.html [facility] Patient Portal Access Instructions: Stay connected with your healthcare team and access your personal medical information anytime with the [facility] Patient Portal. If you would like a full copy of your medical records please contact the [facility] Medical Records Department Friday through Friday between 8a.m. and 4:30p.m. Please follow the directions below to access the portal: 1.Access the email account you provided upon registration to the [facility].2.Look for an invitation email from [facility].3.Open the email and access the invitation link: Accept Invitation to [facility]4.Fill in the required ellis to create your account. Sign into [email or web address] with your username and password that you created in the above steps to stay up to date. You can then view a summary of results, a summary of your visits, and the ability to download your summaries to your computer or send the information securely to a physician. Remember that your healthcare information is confidential, so carefully consider who you will allow to register on the [facility] Patient Portal for access to your information. You can also access the [facility] Patient Portal on the [employer]. Simply click on Health Records under HealthData and then click on the [employer] logo. HOW TO SAFELY DISPOSE OF PRESCRIPTION MEDICATIONS Please use one of the following methods to safely dispose of your unused medications. 1.Use a drug disposal kit: the drug disposal pouch allows you to safely discard your old and unuseddrugs. Ask your nurse to give you one when you are discharged.2.Visit a local take-back location: Many local pharmacies and police departments have programs that collect old and unwanted prescriptiondrugs. Call your local pharmacy or go to [email or web address]/[email or web address] to find one close to you.3.Make use of household items: Use cat litter or old coffee grounds to dispose medications if other options arenot available. Mix your drugs with these household products, seal them in an airtight container andthrow it into the garbage. Call [facility]: [phone] to be sure your drugs can be disposed of in this way. Some medicines may require a different approach.4.Never flush your medications down the toilet. IF YOU HAVE BEEN PRESCRIBED AN OPIOIDS FOR PAIN If you have been prescribed an opioid (such as hydrocodone, oxycodone or morphine), it is critical to understand the possible side effects and risks of opioid pain medications. Even when taken as directed, opioids can have several side effects including: Tolerance, meaning you might need to take more of a medication for the same pain relief. Nausea, vomiting and/or constipation. Sleepiness, dizziness, dry mouth, confusion, depression or itching. Physical dependence, meaning you have withdrawal symptoms when a medication is stopped ? this can develop within a few days. KNOW YOUR RESPONSIBILITIES It is important to know exactly how much and how often to take the opioid pain medications you are prescribed. Never take opioids in higher amounts or more often than prescribed. Do not combine opioids with alcohol or other drugs that cause drowsiness, such as benzodiazepines, also known as benzos,including diazepam and alprazolam, muscle relaxants or sleep aids. Never sell or share prescriptionopioids. This is illegal. Store opioids in a secure place and out of reach of others (including children, family, friends and visitors). The last page(s) of this document has been signed and retained as a CHART COPY Signatures Patient Education Materials Headache, Unspecified Medication Leaflets My discharge plan and instructions have been reviewed and explained to me and I,DONNA MCMAHON understand my current condition and have read and understand these discharge instructions. I have received a written copy of the plan/instructions. If I have questions, I am aware that I should contact my doctor. 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 Who presents today with concerns of a dental infection. She states she has needed to have her wisdom tooth pulled out for over a year now. Recently she has noticed an odor in her mouth, has developed headaches chills and nausea due to the infection. She has not had a fever. She has been exposed to others who are sick. She does not want covid or flu testingtoday. HPI PAST MEDICAL HISTORY Diagnosis Date Mild intermittent asthma without complication PCOS (polycystic ovarian syndrome) FAMILY HISTORY Problem Relation Age of Onset Hypertension Father Social History Tobacco Use Smoking status: Never Smokeless tobacco: Never Vaping Use Vaping Use: Never used Substance Use Topics Alcohol use: Not Currently Drug use: Never ALLERGIES Allergen Reactions Amoxicillin-Pot Cla* Rash Vancomycin Shortness of Breath Current Outpatient Medications Medication Sig Dispense Refill medroxyPROGESTERone (DEPO-PROVERA) 150 mg/mL sertraline (ZOLOFT) 100 mg tablet Take 1 tablet by mouth once daily. 90 tablet 0 blood sugar diagnostic (BLOOD GLUCOSE TEST) test strip Test blood sugar(s) one times daily. Dx: Type 2 DM - Controlled E11.9 Insulin: No 50 Strip 11 albuterol HFA (PROVENTIL HFA, VENTOLIN HFA) 90 mcg/actuation inhaler Inhale 2 Puffs as instructed every 4 hours as needed. 1 Each 0 albuterol (PROVENTIL) 2.5 mg /3 mL (0.083 %) nebulizer solution Use 3 mL via nebulizer every 4 hours as needed for wheezing/shortness of breath. 720 mL 0 valACYclovir (VALTREX) 500 mg tablet Take 500 mg by mouth twice daily. naproxen (NAPROSYN) 500 mg tablet Take 1 tablet by mouth twice daily with meals. Take with food. 60tablet 1 cetirizine (ZYRTEC) 10 mg tablet Take 1 tablet by mouth once daily. 30 tablet 0 Lancets lancets Test blood sugar(s) one times daily. Dx: Type 2 DM - Controlled E11.9 Insulin: No 100 Each 11 No current facility-administered medications for this visit. OBJECTIVE: BP 122/90 Pulse 85 Temp 36.3 C (97.3 F) Resp 20 Wt 91.3 kg (201 lb 3.2 oz) LMP (LMP Unknown) SpO2 100% BMI 33.48 kg/m ROS all other systems reviewed and are negative Physical Exam Constitutional: Well developed, well nourished, NAD, A&O X3. 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 Right bottom wisdom tooth is tender on palp no abscess noted Neck: supple with no palpable lymph nodes Cardiac: Heart tone normal rate and rhythm Respiratory: Breath sounds clear : no CVA tenderness MS: no swelling, tenderness or deformity in upper or lower extremities, no midline tenderness in cervical, thoracic or lumbar spine. Neuro: strength sensation and coordination intact. CN II-XII grossly intact, Skin: warm and dry with out rash, lesion or ecchymosis on exposed skin Psych: alert appropriate, speech clear It was a pleasure to take care of Donna Mcmahon today. For her dental pain I will send in an antibiotic for concerns of a dental infection. She is allergic to pcn so I will give her clindamycin. She may take motrin and tylenol for pain. She will f/u with dentist to have the wisdom teeth removed. Patient will follow up with family physician. They may return to the Urgent Care or go to the ER for worsening symptoms or concerns. Patient verbalized understanding of plan of care and is in agreement. ASSESSMENT/PLAN: 1. Pain, dental - ICD9: 525.9, ICD10: K08.89 - CLINDAMYCIN HCL 300 MG CAPSULE Hoda Cantu APRN.[facility] documented [facility] History of Present illness Narrative* Ying Piña APRN.[facility] - 03/31/2023 7:23 AM EDT 03/31/2023 Patient presents with: Recheck: 4 week anxiety/depression follow up SUBJECTIVE: This is a 22 year old that is here today for Above Complaints. Taking and tolerating Zoloft without side effects. Has noticed she is less irritable at work. Stillsleeps more than what she think she should. Eating more vegetables. Still attending counseling evertwo weeks at [facility]. Denies SI, HI or insomnia JEOVANY: 1 PHQ9: 1 PAST MEDICAL HISTORY Diagnosis Date Mild intermittent asthma without complication PCOS (polycystic ovarian syndrome) ALLERGIES Amoxicillin-Pot Clavulanate and Vancomycin MEDICATIONS Current Outpatient Medications Medication Sig medroxyPROGESTERone (DEPO-PROVERA) 150 mg/mL sertraline (ZOLOFT) 100 mg tablet Take 1 tablet by mouth once daily. blood sugar diagnostic (BLOOD GLUCOSE TEST) test strip Test blood sugar(s) one times daily. Dx: Type 2 DM - Controlled E11.9 Insulin: No albuterol HFA (PROVENTIL HFA, VENTOLIN HFA) 90 mcg/actuation inhaler Inhale 2 Puffs as instructed every 4 hours as needed. albuterol (PROVENTIL) 2.5 mg /3 mL (0.083 %) nebulizer solution Use 3 mL via nebulizer every 4 hours as needed for wheezing/shortness of breath. Brxnbakinzruard-Yfsuchzij-TH (BROMFED DM) 2-30-10 mg/5 mL syrup Take 5-10 ml po q6h prn (Patient not taking: Reported on 03/05/2023) valACYclovir (VALTREX) 500 mg tablet Take 500 mg by mouth twice daily. naproxen (NAPROSYN) 500 mg tablet Take 1 tablet by mouth twice daily with meals. Take with food. progesterone micronized (PROMETRIUM) 100 mg capsule Take 100 mg by mouth once daily. cetirizine (ZYRTEC) 10 mg tablet Take 1 tablet by mouth once daily. ondansetron orally disintegrating (ZOFRAN ODT) 4 mg disintegrating tablet Take 1 tablet by mouth every 8 hours as needed for nausea/vomiting. meclizine (ANTIVERT) 12.5 mg tab Take 1 tablet by mouth twice daily. (Patient not taking: Reported on 03/05/2023) Lancets lancets Test blood sugar(s) one times daily. Dx: Type 2 DM - Controlled E11.9 Insulin: No No current facility-administered medications for this visit. Medications and allergies reviewed by this provider. SOCIAL HISTORY Social History Tobacco Use Smoking status: Never Smokeless tobacco: Never Vaping Use Vaping Use: Never used Substance Use Topics Alcohol use: Not Currently Drug use: Never REVIEW OF SYSTEMS All other reviewed and negative other than HPI. OBJECTIVE: BP 116/84 Pulse 71 Resp 16 Wt 94.8 kg (209 lb) LMP (LMP Unknown) SpO2 97% BMI 34.78 kg/m . Vital signs reviewed by this provider. APPEARANCE Well appearing, alert, in no acute distress, well-hydrated, well nourished. PSYCH: Posture and motor behavior: normal posture and motor behavior Dress, grooming, personal hygiene: normal dress and grooming Facial expression: smiling and good eye contact Speech: normal speech Mood: cheerful Coherency and relevance of thought: normal thought processes Memory: normal memory HEPATITIS B(1 of 3 - 3-dose series) Never done COVID-19 VACCINE(1) Never done PNEUMOCOCCAL(1 - PCV) Never done HPV VACCINE(1 - 2-dose series) Never done DILATED RETINAL EXAM Never done DTAP,TDAP,TD(1 - Tdap) Never done PAP TESTING Never done DEPRESSION ASSESSMENT due on 09/29/2022 INFLUENZA(1) due on 05/30/2023 DIABETIC FOOT EXAM due on 07/23/2023 HBA1C due on 08/30/2023 GC (GONORRHEA) SCREENING (18-24) due on 01/04/2024 CHLAMYDIA SCREENING (18-24) due on 01/04/2024 URINE ALBUMIN:CREATININE RATIO due on 02/29/2024 LDL CHOLESTEROL due on 02/29/2024 ANNUAL PCP TEAM CHRONIC DISEASE VISIT due on 03/12/2024 HEPATITIS C SCREENING Completed HIV SCREENING Completed MENINGOCOCCAL B: Consider based on risk Discontinued ASSESSMENT/PLAN: 1. Anxiety and depression - ICD9: 300.00, 311, ICD10: F41.9, F32.A (primary diagnosis) - improving - sleep hygiene discussed - continue with counseling - follow-up in 6 months for physical 2. Obesity, Class I, BMI 30-34.9 - ICD9: 278.00, ICD10: E66.9 Weight decreasing - Behavioral intervention - Lengthy discussion in office today regarding diet and exercise. Discussed use of small plate to eat meals from, drink 1 glass of water 10-15 minutes prior to eating meal, drink 8 glasses of water daily, eat fresh fruit and vegetable during meal first then lean protein such as grilled/baked chicken breast or fish, limit carbohydrate intake (less pasta, breads, rice and snack foods) as well as limiting sugars (desserts etc). Important to count / track your calories and exercise as well. Ying Piña APRN.CNP Prescription instructions reviewed with patient as applicable. Patient advised if symptoms do not improve or if symptoms worsen sooner, to contact their primary care physician. Potential red flag symptoms discussed with the patient. Reviewed appropriate action plan to take if red flag symptoms occur. Patient agreeable to treatment plan. I spent a total of 20 minutes on the date of the service which included preparing to see the patient, cezp-kx-kctp patient care, completing clinical documentation, obtaining and/or reviewing separately obtained history, performing a medically appropriate examination, and counseling and educating the patient/family/caregiver. documented in this [facility]Community [facility] History of Present illness Narrative* Ying Piña APRN.CNP - 03/12/2023 10:32 AM EDT 03/12/2023 Patient presents with: UTI: Was seen in express care on 03/05 for burning with urination. Antibiotic completed Friday. Stillhaving burning at times. SUBJECTIVE: This is a 22 year old that is here today for Above Complaints.. Seen in Express Care on 03/05/2023 for burning with urination. Treated for UTI. Completed entire course of antibiotic but continues to have burning at times. Denies fevers, chills, back pain, abdominal pain, vomiting, urinary urgency or frequency or hematuria. Component Latest Ref Rng & Units 03/12/2023 GLUCOSE UA (POCT) Negative mg/dL Negative BILIRUBIN UA (POCT) Negative Negative KETONE UA (POCT) Negative mg/dL Negative SPECIFIC GRAVITY UA (POCT) 1.005 - 1.030 >=1.030 HEMOGLOBIN/BLOOD UA (POCT) Negative Negative PH UA (POCT) 4.5 - 8.0 5.5 PROTEIN UA (POCT) Negative mg/dL Negative UROBILINOGEN UA (POCT) Normal E.U./dL 0.2 NITRITE UA (POCT) Negative Negative LEUKOCYTES UA (POCT) Negative Trace (A) COLOR UA (POCT) Yellow CLARITY UA (POCT) Clear PAST MEDICAL HISTORY Diagnosis Date Mild intermittent asthma without complication PCOS (polycystic ovarian syndrome) ALLERGIES Amoxicillin-Pot Clavulanate and Vancomycin MEDICATIONS Current Outpatient Medications Medication Sig medroxyPROGESTERone (DEPO-PROVERA) 150 mg/mL sertraline (ZOLOFT) 100 mg tablet Take 1 tablet by mouth once daily. blood sugar diagnostic (BLOOD GLUCOSE TEST) test strip Test blood sugar(s) one times daily. Dx: Type 2 DM - Controlled E11.9 Insulin: No albuterol HFA (PROVENTIL HFA, VENTOLIN HFA) 90 mcg/actuation inhaler Inhale 2 Puffs as instructed every 4 hours as needed. albuterol (PROVENTIL) 2.5 mg /3 mL (0.083 %) nebulizer solution Use 3 mL via nebulizer every 4 hours as needed for wheezing/shortness of breath. Omthpmpitsckpzi-Kgkuuajxl-MS (BROMFED DM) 2-30-10 mg/5 mL syrup Take 5-10 ml po q6h prn (Patient not taking: Reported on 03/05/2023) valACYclovir (VALTREX) 500 mg tablet Take 500 mg by mouth twice daily. naproxen (NAPROSYN) 500 mg tablet Take 1 tablet by mouth twice daily with meals. Take with food. progesterone micronized (PROMETRIUM) 100 mg capsule Take 100 mg by mouth once daily. cetirizine (ZYRTEC) 10 mg tablet Take 1 tablet by mouth once daily. ondansetron orally disintegrating (ZOFRAN ODT) 4 mg disintegrating tablet Take 1 tablet by mouth every 8 hours as needed for nausea/vomiting. meclizine (ANTIVERT) 12.5 mg tab Take 1 tablet by mouth twice daily. (Patient not taking: Reported on 03/05/2023) Lancets lancets Test blood sugar(s) one times daily. Dx: Type 2 DM - Controlled E11.9 Insulin: No No current facility-administered medications for this visit. Medications and allergies reviewed by this provider. SOCIAL HISTORY Social History Tobacco Use Smoking status: Never Smokeless tobacco: Never Vaping Use Vaping Use: Never used Substance Use Topics Alcohol use: Not Currently Drug use: Never REVIEW OF SYSTEMS All other reviewed and negative other than HPI. OBJECTIVE: BP 134/72 Pulse 87 Wt 98.1 kg (216 lb 3.2 oz) LMP (LMP Unknown) SpO2 97% BMI 35.98 kg/m .Vital signs reviewed by this provider. APPEARANCE Well appearing, alert, in no acute distress, well-hydrated, well nourished. EYES conjunctiva and sclera normal. HEART RRR with normal S1 and S2, no murmurs, no gallops, no JVD appreciated LUNG clear to auscultation ABDOMEN no tenderness to palpation. No wheezes, rhonchi or rales BACK: No CVA tenderness SKIN Skin color, texture, turgor normal, no suspicious rashes or lesions to exposed skin HEPATITIS B(1 of 3 - 3-dose series) Never done COVID-19 VACCINE(1) Never done PNEUMOCOCCAL(1 - PCV) Never done HPV VACCINE(1 - 2-dose series) Never done DILATED RETINAL EXAM Never done DTAP,TDAP,TD(1 - Tdap) Never done PAP TESTING Never done DEPRESSION ASSESSMENT due on 09/29/2022 DIABETIC FOOT EXAM due on 07/23/2023 HBA1C due on 08/30/2023 GC (GONORRHEA) SCREENING (18-24) due on 01/04/2024 CHLAMYDIA SCREENING (18-24) due on 01/04/2024 URINE ALBUMIN:CREATININE RATIO due on 02/29/2024 LDL CHOLESTEROL due on 02/29/2024 ANNUAL PCP TEAM CHRONIC DISEASE VISIT due on 03/03/2024 INFLUENZA Completed HEPATITIS C SCREENING Completed HIV SCREENING Completed MENINGOCOCCAL B: Consider based on risk Discontinued ASSESSMENT/PLAN: 1. Dysuria - ICD9: 788.1, ICD10: R30.0 - repeat UA shows trace of leuks - recent culture was negative for infection - no red flag symptoms or exam findings - red flag symptoms discussed, verbalizes understanding - push fluids - follow-up if symptoms fail to improve Ying Piña APRN.CNP Prescription instructions reviewed with patient as applicable. Patient advised if symptoms do not improve or if symptoms worsen sooner, to contact their primary care physician. Potential red flag symptoms discussed with the patient. Reviewed appropriate action plan to take if red flag symptoms occur. Patient agreeable to treatment plan. ' I spent a total of 25 minutes on the date of the service which included preparing to see the patient, fmdg-dk-gslk patient care, completing clinical documentation, obtaining and/or reviewing separately obtained history, performing a medically appropriate examination, counseling and educating the pat ient/family/caregiver, and ordering medications, tests, or procedures. documented in this encounterCommunity [facility] History of Present illness Narrative* NELLI Baird - 03/05/2023 8:54 AM EDT This note was created using ReDoc Softwareriter. Subjective Donna Mcmahon is a 22 year old female. HPI 22-year-old female presents for UTI symptoms. Patient has been having burning with urination for the past 2 days. Denies any vaginal discharge. No blood in the urine. No concern for or STD. She is on control. She denies any abdominal pain, back pain, fevers, vomiting. She has had a UTI about a year ago. PAST MEDICAL HISTORY Diagnosis Date Mild intermittent asthma without complication PCOS (polycystic ovarian syndrome) PAST SURGICAL HISTORY Procedure Laterality Date STRABISMUS SURG PT W SCAR EO MUSCL ALLERGIES Amoxicillin-Pot Clavulanate and Vancomycin MEDICATIONS medroxyPROGESTERone (DEPO-PROVERA) 150 mg/mL sertraline (ZOLOFT) 100 mg tablet Take 1 tablet by mouth once daily. blood sugar diagnostic (BLOOD GLUCOSE TEST) test strip Test blood sugar(s) one times daily. Dx: Type 2 DM - Controlled E11.9 Insulin: No albuterol HFA (PROVENTIL HFA, VENTOLIN HFA) 90 mcg/actuation inhaler Inhale 2 Puffs as instructed every 4 hours as needed. albuterol (PROVENTIL) 2.5 mg /3 mL (0.083 %) nebulizer solution Use 3 mL via nebulizer every 4 hours as needed for wheezing/shortness of breath. valACYclovir (VALTREX) 500 mg tablet Take 500 mg by mouth twice daily. naproxen (NAPROSYN) 500 mg tablet Take 1 tablet by mouth twice daily with meals. Take with food. progesterone micronized (PROMETRIUM) 100 mg capsule Take 100 mg by mouth once daily. cetirizine (ZYRTEC) 10 mg tablet Take 1 tablet by mouth once daily. ondansetron orally disintegrating (ZOFRAN ODT) 4 mg disintegrating tablet Take 1 tablet by mouth every 8 hours as needed for nausea/vomiting. Lancets lancets Test blood sugar(s) one times daily. Dx: Type 2 DM - Controlled E11.9 Insulin: No nitrofurantoin monohydrate and macrocrystal (MACROBID) 100 mg capsule Take 1 capsule by mouth twicedaily for 5 days. Vpzthqqombozqwm-Beetsrpon-LV (BROMFED DM) 2-30-10 mg/5 mL syrup Take 5-10 ml po q6h prn (Patient not taking: Reported on 03/05/2023) meclizine (ANTIVERT) 12.5 mg tab Take 1 tablet by mouth twice daily. (Patient not taking: Reported on 03/05/2023) FAMILY HISTORY Problem Relation Age of Onset Hypertension Father Social History Tobacco Use Smoking status: Never Smokeless tobacco: Never Vaping Use Vaping Use: Never used Substance Use Topics Alcohol use: Not Currently Drug use: Never Review of Systems Constitutional: Negative for chills and fever. HENT: Negative for congestion, ear pain and sore throat. Respiratory: Negative for cough and shortness of breath. Cardiovascular: Negative for chest pain. Gastrointestinal: Negative for diarrhea and vomiting. Genitourinary: Positive for dysuria. Negative for flank pain, frequency, pelvic pain, urgency, vaginal bleeding and vaginal discharge. Objective BP 118/92 Pulse 76 Temp 36.6 C (97.8 F) Resp 20 Wt 100 kg (220 lb 6.4 oz) LMP (LMP Unknown) SpO2 99% BMI 36.68 kg/m Physical Exam Vitals and nursing note reviewed. Constitutional: General: She is not in acute distress. Appearance: Normal appearance. She is not toxic-appearing. Cardiovascular: Rate and Rhythm: Normal rate and regular rhythm. Pulmonary: Effort: Pulmonary effort is normal. Breath sounds: Normal breath sounds. Abdominal: General: Abdomen is flat. Palpations: Abdomen is soft. Tenderness: There is no abdominal tenderness. There is no right CVA tenderness or left CVA tenderness. Skin: General: Skin is warm and dry. Neurological: Mental Status: She is alert. Assessment and Plan ASSESSMENT/PLAN: 1. Burning with urination - ICD9: 788.1, ICD10: R30.0 - UA positive for heriberto esterase and hematuria - Send urine for culture - Begin treatment with Macrobid 100 mg BID for 5 days - Patient education for prevention given - Denies concern for or STD. No vaginal complaints. - UA DIP, URINE (POC) - URINE CULTURE Diagnosis and treatment plan were discussed and questions were answered to the patient's satisfaction. Pt acknowledged understanding of concepts and follow up plan. Specific signs and symptoms that would indicate the need for higher level of care were discussed in detail warranting prompt ER evaluation. NELLI Baird documented in this encounterCommunity [facility]06-[facility] History of Present illness Narrative* Ying Piña APRN.[facility] - 03/03/2023 10:02 AM EDT 03/03/2023 Patient presents with: Recheck: Anxiety and depression SUBJECTIVE: This is a 22 year old that is here today for Above Complaints. Started on sertraline at last office visit. Taking and tolerating without side effects. Started counseling at [facility]. Following with then every two weeks. Reports doesn't;t feel much difference on the Zoloft. Denies SI, HI or insomnia Has been watching what she eats and walking. Weight down 18 pounds. JEOVANY: 5 PHQ9: 7 Would like refill on diabetic test strips. Reports takes blood sugars twice a day mostly in the 80-90's PAST MEDICAL HISTORY Diagnosis Date Mild intermittent asthma without complication PCOS (polycystic ovarian syndrome) ALLERGIES Amoxicillin-Pot Clavulanate and Vancomycin MEDICATIONS Current Outpatient Medications Medication Sig sertraline (ZOLOFT) 50 mg tablet Take 1 tablet by mouth once daily. albuterol HFA (PROVENTIL HFA, VENTOLIN HFA) 90 mcg/actuation inhaler Inhale 2 Puffs as instructed every 4 hours as needed. albuterol (PROVENTIL) 2.5 mg /3 mL (0.083 %) nebulizer solution Use 3 mL via nebulizer every 4 hours as needed for wheezing/shortness of breath. Muvxrvbpbzkkfob-Tknufjvql-XZ (BROMFED DM) 2-30-10 mg/5 mL syrup Take 5-10 ml po q6h prn valACYclovir (VALTREX) 500 mg tablet Take 500 mg by mouth twice daily. naproxen (NAPROSYN) 500 mg tablet Take 1 tablet by mouth twice daily with meals. Take with food. progesterone micronized (PROMETRIUM) 100 mg capsule Take 100 mg by mouth once daily. cetirizine (ZYRTEC) 10 mg tablet Take 1 tablet by mouth once daily. ondansetron orally disintegrating (ZOFRAN ODT) 4 mg disintegrating tablet Take 1 tablet by mouth every 8 hours as needed for nausea/vomiting. meclizine (ANTIVERT) 12.5 mg tab Take 1 tablet by mouth twice daily. blood sugar diagnostic (BLOOD GLUCOSE TEST) test strip Test blood sugar(s) one times daily. Dx: Type 2 DM - Controlled E11.9 Insulin: No Lancets lancets Test blood sugar(s) one times daily. Dx: Type 2 DM - Controlled E11.9 Insulin: No No current facility-administered medications for this visit. Medications and allergies reviewed by this provider. SOCIAL HISTORY Social History Tobacco Use Smoking status: Never Smokeless tobacco: Never Vaping Use Vaping Use: Never used Substance Use Topics Alcohol use: Not Currently Drug use: Never REVIEW OF SYSTEMS All other reviewed and negative other than HPI. OBJECTIVE: BP 112/82 Pulse 77 Resp 16 Wt 99 kg (218 lb 3.2 oz) LMP (LMP Unknown) SpO2 98% BMI 36.31 kg/m . Vital signs reviewed by this provider. APPEARANCE Well appearing, alert, in no acute distress, well-hydrated, well nourished. PSYCH: Posture and motor behavior: normal posture and motor behavior Dress, grooming, personal hygiene: normal dress and grooming Facial expression: smiling and poor eye contact Speech: normal speech Mood: Pleasant Coherency and relevance of thought: normal thought processes Memory: normal memory Component Latest Ref Rng & Units 02/28/2023 Glucose 74 - 99 mg/dL 70 (L) BUN 7 - 21 mg/dL 16 Creatinine 0.58 - 0.96 mg/dL 0.78 Sodium 136 - 144 mmol/L 135 (L) Potassium 3.7 - 5.1 mmol/L 3.8 Chloride 97 - 105 mmol/L 105 CO2 22 - 30 mmol/L 20 (L) Anion Gap 9 - 18 mmol/L 10 Calcium 8.5 - 10.2 mg/dL 9.2 eGFR >=60 mL/min/1.73m 111 Cholesterol, Total <200 mg/dL 165 Triglyceride <150 mg/dL 101 HDL Cholesterol >39 mg/dL 36 (L) Non HDL Cholesterol <130 mg/dL 129 Fasting Time hrs 12 VLDL Cholesterol <30 mg/dL 20 TC:HDL Ratio <5.10 4.58 LDL Cholesterol <100 mg/dL 109 (H) LDL:HDL Ratio <2.54 3.03 (H) Creatinine, Ur Random (UCRR) 20.0 - 300.0 mg/dL 146.1 Albumin, Urine Random mg/L 24.8 Albumin/Creat Ratio <30 mg/g 17 Hemoglobin A1C 4.3 - 5.6 % 5.9 (H) Estimated Average Glucose mg/dL 123 HEPATITIS B(1 of 3 - 3-dose series) Never done COVID-19 VACCINE(1) Never done PNEUMOCOCCAL(1 - PCV) Never done HPV VACCINE(1 - 2-dose series) Never done DILATED RETINAL EXAM Never done DTAP,TDAP,TD(1 - Tdap) Never done PAP TESTING Never done DEPRESSION ASSESSMENT due on 09/29/2022 DIABETIC FOOT EXAM due on 07/23/2023 HBA1C due on 08/30/2023 GC (GONORRHEA) SCREENING (18-24) due on 01/04/2024 CHLAMYDIA SCREENING (18-24) due on 01/04/2024 ANNUAL PCP TEAM CHRONIC DISEASE VISIT due on 02/04/2024 URINE ALBUMIN:CREATININE RATIO due on 02/29/2024 LDL CHOLESTEROL due on 02/29/2024 INFLUENZA Completed HEPATITIS C SCREENING Completed HIV SCREENING Completed MENINGOCOCCAL B: Consider based on risk Discontinued ASSESSMENT/PLAN: 1. Anxiety and depression - ICD9: 300.00, 311, ICD10: F41.9, F32.A (primary diagnosis) - JEOVANY and PHQ9 have improved and patient's mood better that previously - continue counseling - will increase Zoloft and follow-up in one month - SERTRALINE 100 MG TABLET 2. Obesity, Class II, BMI 35-39.9 - ICD9: 278.00, ICD10: E66.9 - congratulated on weight loss Weight decreasing - Behavioral intervention - Lengthy discussion in office today regarding diet and exercise. Discussed use of small plate to eat meals from, drink 1 glass of water 10-15 minutes prior to eating meal, drink 8 glasses of water daily, eat fresh fruit and vegetable during meal first then lean protein such as grilled/baked chicken breast or fish, limit carbohydrate intake (less pasta, breads, rice and snack foods) as well as limiting sugars (desserts etc). Important to count / track your calories and exercise as well. 3. Type 2 diabetes mellitus without complication, without long-term current use of insulin (HCC) - ICD9: 250.00, ICD10: E11.9 - Controlled - Blood glucose monitoring on a once daily schedule - Counseled on healthy diet and regular exercise - Discussed need for and benefit of weight loss. BMI 36.31 kg/(m^2) - Follow up in 6 months, sooner should any other issues arise. - BLOOD GLUCOSE TEST STRIPS Ying Piña APRN.CNP Prescription instructions reviewed with patient as applicable. Patient advised if symptoms do not improve or if symptoms worsen sooner, to contact their primary care physician. Potential red flag symptoms discussed with the patient. Reviewed appropriate action plan to take if red flag symptoms occur. Patient agreeable to treatment plan. I spent a total of 25 minutes on the date of the service which included preparing to see the patient, [id number] patient care, completing clinical documentation, obtaining and/or reviewing separately obtained history, performing a medically appropriate examination, counseling and educating the pat ient/family/caregiver, and ordering medications, tests, or procedures. documented in this encounterCommunity [facility]05-19-2023 Miscellaneous Notes* Telephone Encounter - Amy Rendon LPN - 02/14/2023 12:14 PM EDT Tried reaching patient, no answer and mailbox remains full. [facility]endon LPN * Telephone Encounter - Amy Rendon LPN - 02/12/2023 11:53 AM EDT Patient telephoned. Mailbox is full and unable to leave message. Please try back later. Amy Rendon LPN * Telephone Encounter - Ying Piña APRN.CNP - 02/12/2023 8:18 AM EDT I did not treat her during her time off work, therefore I can not fill these out. If she is seeing psychiatry maybe they will fill them out. Ying Piña APRN.CUCO * Telephone Encounter - Suma Purvis LPN - 02/12/2023 8:04 AM EDT Pt called and reports she turned in the letter to her employer and went back to work. Pt was told she needed the FMLA papers filled out or letter excusing pt off work because of mental health issues.Per pt she needs this within the next 24 hours or her Employer will terminate her. Please advise francisco javier. Suma Purvis LPN documented in this encounterCommunity [facility] Hospital05-11-2023 Miscellaneous Notes* Telephone Encounter - Suma Purvis LPN - 02/06/2023 8:31 AM EDT Spoke with pt and information listed below given. Pt verbalizes understanding. Suma Purvis LPN * Telephone Encounter - Amy Rendon LPN - 02/05/2023 3:14 PM EDT Patient telephoned. Mailbox is full, unable to leave message. Will try back later. Amy Rendon LPN * Telephone Encounter - Ying Piña APRN.CUCO - 02/05/2023 8:36 AM EDT I printed letter saying she may work without restrictions. I will not put may return to work as I never told her she needed to be off. Letter in my outbox. 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 Ying Piña APRN.CUCO * Telephone Encounter - Hoda Preston RN - 02/05/2023 8:29 AM EDT Pt called and is notified of providers message and instructions. Pt states she called HR and they will accept her after visit summary and a note from the provider saying that she can return to work with no restrictions. I asked if she could call the psychiatrists office and ask to have them write the FMLA note and she states she hasn't even had her first visit yet. Hoda Preston RN * Telephone Encounter - Amy Rendon LPN - 02/05/2023 8:12 AM EDT Patient telephoned. Mailbox is full, unable to leave message. Will try back later. Amy Rendon LPN * Telephone Encounter - Ying Piña APRN.CNP - 02/05/2023 8:07 AM EDT She will need to discuss with psychiatry. I was not treating her during this time period and we never discussed her being off of work. Ying Piña APRN.CUCO * Telephone Encounter - Amy Rendon LPN - 02/05/2023 8:00 AM EDT Patient notified. States if the papers are not filled out she will be terminated. Patients place ofemployment is telling her that if she doesn't have these filled out she can't come back to work. Apparently is policy for [employer]. Appointment with psychiatry isn't until next week. Amy Rendon LPN * Telephone Encounter - Ying Piña APRN.CNP - 02/05/2023 7:35 AM EDT She said her work told her she had to be off. I can not fill out FMLA for this. Ying Piña APRN.CUCO * Telephone Encounter - Suma Purvis LPN - 02/03/2023 2:42 PM EDT Pt called and she was just seen this afternoon and forgot to give you her FMLA papers. She is bringthem in. Suma Purvis LPN documented in this encounterCommunity [facility] Hospital05-08-2023 Instructions* Patient Instructions* Ying Piña APRN.CUCO - 02/03/2023 1:41 PM EDT Provide services on a sliding fee scale for [facility]. [address] [address] *Counsel[facility] [place] [facility] Office [facility] [place] [address] *Counseling, Psychiatry and Case Management [place] [address] [place] [address] *Counseling [place] [address] [place] [address] *Counseling [place] [address] [place] [address] *Counseling [place] [address] [place] [address] *Counseling [place] [address] [place] [phone] *Counseling/mental health and substance use treatment [facility] [address] [place] [address] [place] [address] [place] [address] [facility] [address] [place] [phone] *Addiction services, services for victims of domestic violence and sexual assault, housing services [facility] -safe, alcohol and drug free environment [facility] [phone] *free grief services, individual and group *If you ever experience a mental health crisis please contact [phone], 911 or go to the nearest ER. Please verify with insurance provider for coverage documented in this encounterCommunity Memorial Hospital05-08-2023 History of Present illness Narrative* Ying Piña APRN.CNP - 02/03/2023 1:39 PM EDT 02/03/2023 Patient presents with: Referral Request: Requesting referral for therapist for mental health SUBJECTIVE: This is a 22 year old that is here today for Above Complaints. Reports took leave of absence from work. Reports every time she went to work she got dizzy, threw up and vision got blurry. Reports she was told she needs to see a mental health specialist in order to go back to work. She reports boss told her she was not physically ill there was something else wrong with her. Has never went to counseling before or been treated for anxiety or depression. Denies SI, HI or insomnia JEOVANY: 13 PHQ9: 14 PAST MEDICAL HISTORY Diagnosis Date Mild intermittent asthma without complication PCOS (polycystic ovarian syndrome) ALLERGIES Amoxicillin-Pot Clavulanate and Vancomycin MEDICATIONS Current Outpatient Medications Medication Sig albuterol HFA (PROVENTIL HFA, VENTOLIN HFA) 90 mcg/actuation inhaler Inhale 2 Puffs as instructed every 4 hours as needed. albuterol (PROVENTIL) 2.5 mg /3 mL (0.083 %) nebulizer solution Use 3 mL via nebulizer every 4 hours as needed for wheezing/shortness of breath. Fsclxpbkwvqcqlo-Twnrnzyjz-GF (BROMFED DM) 2-30-10 mg/5 mL syrup Take 5-10 ml po q6h prn valACYclovir (VALTREX) 500 mg tablet Take 500 mg by mouth twice daily. naproxen (NAPROSYN) 500 mg tablet Take 1 tablet by mouth twice daily with meals. Take with food. progesterone micronized (PROMETRIUM) 100 mg capsule Take 100 mg by mouth once daily. cetirizine (ZYRTEC) 10 mg tablet Take 1 tablet by mouth once daily. ondansetron orally disintegrating (ZOFRAN ODT) 4 mg disintegrating tablet Take 1 tablet by mouth every 8 hours as needed for nausea/vomiting. meclizine (ANTIVERT) 12.5 mg tab Take 1 tablet by mouth twice daily. blood sugar diagnostic (BLOOD GLUCOSE TEST) test strip Test blood sugar(s) one times daily. Dx: Type 2 DM - Controlled E11.9 Insulin: No Lancets lancets Test blood sugar(s) one times daily. Dx: Type 2 DM - Controlled E11.9 Insulin: No No current facility-administered medications for this visit. Medications and allergies reviewed by this provider. SOCIAL HISTORY Social History Tobacco Use Smoking status: Never Smokeless tobacco: Never Vaping Use Vaping Use: Never used Substance Use Topics Alcohol use: Not Currently Drug use: Never REVIEW OF SYSTEMS All other reviewed and negative other than HPI. OBJECTIVE: BP 124/82 Pulse 87 Resp 16 Wt 101.6 kg (224 lb) LMP (LMP Unknown) SpO2 97% BMI 37.28 kg/m . Vital signs reviewed by this provider. APPEARANCE Well appearing, alert, in no acute distress, well-hydrated, well nourished. PSYCH: Posture and motor behavior: normal posture and motor behavior Dress, grooming, personal hygiene: normal dress and grooming Facial expression: poor eye contact Speech: normal speech Mood: flat affect Coherency and relevance of thought: normal thought processes Memory: normal memory HEPATITIS B(1 of 3 - 3-dose series) Never done COVID-19 VACCINE(1) Never done PNEUMOCOCCAL(1 - PCV) Never done DILATED RETINAL EXAM Never done HPV VACCINE(1 - 2-dose series) Never done DTAP,TDAP,TD(1 - Tdap) Never done LDL CHOLESTEROL due on 07/24/2022 PAP TESTING Never done DEPRESSION ASSESSMENT due on 09/29/2022 URINE ALBUMIN:CREATININE RATIO due on 10/23/2022 HBA1C due on 10/31/2022 DIABETIC FOOT EXAM due on 07/23/2023 ANNUAL PCP TEAM CHRONIC DISEASE VISIT due on 09/25/2023 GC (GONORRHEA) SCREENING (18-24) due on 01/04/2024 CHLAMYDIA SCREENING (18-24) due on 01/04/2024 INFLUENZA Completed HEPATITIS C SCREENING Completed HIV SCREENING Completed MENINGOCOCCAL B: Consider based on risk Discontinued ASSESSMENT/PLAN: 1. Anxiety and depression - ICD9: 300.00, 311, ICD10: F41.9, F32.A - Discussed concept of neurochemical imbalance [facility] depression/anxiety - Option of Medication use discussed - Risks/benefits of SSRIs - Common side effects - Sleep Hygeine - advised counseling to improve management of stressors - Instructed patient to contact office or [id number] after-hours promptly should condition worsen or any new symptoms appear. - Counseling Center [facility] and after hours crisis line - [facility] [place] phone number or - SERTRALINE 50 MG TABLET- common side effects discussed, verbalizes understanding - handout for local counselors given to patient - follow-up in one month, sooner if needed Ying Piña APRN.DIVEMASTER Prescription instructions reviewed with patient as applicable. Patient advised if symptoms do not improve or if symptoms worsen sooner, to contact their primary care physician. Potential red flag symptoms discussed with the patient. Reviewed appropriate action plan to take if red flag symptoms occur. Patient agreeable to treatment plan. I spent a total of 25 minutes on the date of the service which included preparing to see the patient, [id number] patient care, completing clinical documentation, obtaining and/or reviewing separately obtained history, performing a medically appropriate examination, counseling and educating the pat ient/family/caregiver, and ordering medications, tests, or procedures. documented in this encounterCommunity Memorial Hospital04-08-2023 Miscellaneous Notes* Telephone Encounter - Erwin Still MA - 01/04/2023 9:14 AM EDT Patient notified of results, verbalized understanding of instructions given. Erwin Still MA * Telephone Encounter - Ping Helms PA-C - 01/04/2023 8:07 AM EDT Please call and let patient know her vaginal swabs are positive for bacterial vaginosis. This is not an STD. This is overgrowth of bacteria found in the vagina. Please make sure there is no chance ofpregnancy prior to her filling this medication. Medication sent to her pharmacy. Do not drink any alcohol while on this antibiotic. Follow-up with women's health if not improving. documented in this encounterCommunity [facility] Hospital02-17-2023 History of Present illness Narrative* Mani Gardner MD - 11/15/2022 1:21 PM EST Patient presents with: Pain, Throat: Pt c/o throat pain, cough, bilateral ears decreased hearing, reported Rx ATB never started. HPI: Feeling sick for 2 weeks. Dx with URI here 11/08/22. Positive symptoms: worsening Cough, Sore throat, stuffy ears, nausea and vomiting today, improving sinus pain, Nasal Congestion, Rhinorrhea, Post nasal drainage, Shortness of breath, Wheezing, Chest tightness Negative symptoms: Fever, Chills, Headache, Diarrhea, OTC: Sudafed, Rx Cough Medicine, Ibuprofen PAST MEDICAL HISTORY Diagnosis Date Mild intermittent asthma without complication PCOS (polycystic ovarian syndrome) PAST SURGICAL HISTORY Procedure Laterality Date STRABISMUS SURG PT W SCAR EO MUSCL MEDICATIONS: Current Outpatient Medications Medication Sig albuterol HFA (PROVENTIL HFA, VENTOLIN HFA) 90 mcg/actuation inhaler Inhale 2 Puffs as instructed every 4 hours as needed. albuterol (PROVENTIL) 2.5 mg /3 mL (0.083 %) nebulizer solution Use 3 mL via nebulizer every 4 hours as needed for wheezing/shortness of breath. Jycpslocijajpjt-Xdigvqhrn-SL (BROMFED DM) 2-30-10 mg/5 mL syrup Take 5-10 ml po q6h prn cephALEXin (KEFLEX) 500 mg capsule take 1 capsule by mouth twice a day until finished valACYclovir (VALTREX) 500 mg tablet Take 500 mg by mouth twice daily. naproxen (NAPROSYN) 500 mg tablet Take 1 tablet by mouth twice daily with meals. Take with food. progesterone micronized (PROMETRIUM) 100 mg capsule Take 100 mg by mouth once daily. cetirizine (ZYRTEC) 10 mg tablet Take 1 tablet by mouth once daily. ondansetron orally disintegrating (ZOFRAN ODT) 4 mg disintegrating tablet Take 1 tablet by mouth every 8 hours as needed for nausea/vomiting. meclizine (ANTIVERT) 12.5 mg tab Take 1 tablet by mouth twice daily. blood sugar diagnostic (BLOOD GLUCOSE TEST) test strip Test blood sugar(s) one times daily. Dx: Type 2 DM - Controlled E11.9 Insulin: No Lancets lancets Test blood sugar(s) one times daily. Dx: Type 2 DM - Controlled E11.9 Insulin: No doxycycline monohydrate 100 mg tablet Take 1 tablet by mouth twice daily for 5 days. (Patient not taking: Reported on 11/15/2022) No current facility-administered medications for this visit. ALLERGIES: ALLERGIES Allergen Reactions Amoxicillin-Pot Cla* Rash Vancomycin Shortness of Breath VITALS: BP 126/78 Pulse 95 Temp 36.6 C (97.8 F) (Tympanic) Resp 18 Wt 107.3 kg (236 lb 10.4 oz) LMP 08/29/2022 SpO2 99% BMI 39.38 kg/m PHYSICAL EXAM: GEN: mildly ill appearing HEENT: PERRL, EOMI, conjunctiva clear Ears: canals clear. TMs without erythema, bulge, or effusion Sinuses: non-tender frontal sinus, non-tender maxillary sinuses, nose congested Throat: moist mucous membranes, tonsillar erythema and edema, no exudate Neck: supple, no thyromegaly, no lymphadenopathy HEART: regular rate and rhythm, no murmurs LUNGS: clear to auscultation, no wheezes or crackles, no increased WOB Component Latest Ref Rng & Units 04/30/2022 Hemoglobin A1C 4.3 - 5.6 % 5.8 (H) ASSESSMENT/PLAN: 1. Throat pain - ICD9: 784.1, ICD10: R07.0 (primary diagnosis) 2. Mild intermittent asthma with acute exacerbation - ICD9: 493.92, ICD10: J45.21 - STREP A MOLECULAR (POC) - negative - suspect viral URI with asthma exacerbation, differential includes second viral illness and COVID-19. - Discussed supportive care treatment with rest, cold medicine, and analgesia. Advised to avoid using Rx decongestant/cough medicine and OTC decongestant together. - Red flags to seek further treatment include chest pain, shortness of breath, and lethargy; in theER if severe. - PREDNISONE 20 MG TABLET burst Albuterol inhaler refill sent in earlier today. - 2019 CORONAVIRUS Mani Gardner MD documented in this encounterCommunity Memorial Hospital02-17-2023 Miscellaneous Notes* Telephone Encounter - Julia Hawk RN - 11/15/2022 11:12 AM EST Patient calls to request refill of nebulizer solution and rescue inhaler. Patient seen 11/08/22 in for URI with cough and congestion. Last visit with provider: 09/25/2022 Next OV: none Julia Hawk RN documented in this encounterCommunity Memorial Hospital12-26-2022 History of Present illness Narrative* Mani Gardner MD - 09/23/2022 2:43 PM EST Patient presents with: Sinus Problem: X 1 week HPI: Feeling sick for 6 days. Strep/COVID/flu negative here 09/19/22. Here because her sinuses hurt whenshe blew her nose today. Positive symptoms: Cough, Sore throat, Sinus pressure, Nasal Congestion, Rhinorrhea, Post nasal drainage, Shortness of breath walking across parking lot today, Negative symptoms: Fever, Chills, Vomiting, Diarrhea, OTC: Cold Medicine. On Keflex through [employer] for the last week for Ecoli in her uterus. PAST MEDICAL HISTORY Diagnosis Date Mild intermittent asthma without complication PCOS (polycystic ovarian syndrome) MEDICATIONS: Current Outpatient Medications Medication Sig cephALEXin (KEFLEX) 500 mg capsule take 1 capsule by mouth twice a day until finished valACYclovir (VALTREX) 500 mg tablet Take 500 mg by mouth twice daily. naproxen (NAPROSYN) 500 mg tablet Take 1 tablet by mouth twice daily with meals. Take with food. cetirizine (ZYRTEC) 10 mg tablet Take 1 tablet by mouth once daily. meclizine (ANTIVERT) 12.5 mg tab Take 1 tablet by mouth twice daily. blood sugar diagnostic (BLOOD GLUCOSE TEST) test strip Test blood sugar(s) one times daily. Dx: Type 2 DM - Controlled E11.9 Insulin: No Lancets lancets Test blood sugar(s) one times daily. Dx: Type 2 DM - Controlled E11.9 Insulin: No albuterol (PROVENTIL) 2.5 mg /3 mL (0.083 %) nebulizer solution Use via nebulizer every 4 hours as needed for Wheezing/Shortness of Breath. progesterone micronized (PROMETRIUM) 100 mg capsule Take 100 mg by mouth once daily. (Patient not taking: Reported on 09/19/2022) ondansetron orally disintegrating (ZOFRAN ODT) 4 mg disintegrating tablet Take 1 tablet by mouth every 8 hours as needed for nausea/vomiting. albuterol HFA (PROVENTIL HFA, VENTOLIN HFA) 90 mcg/actuation inhaler Inhale 2 Puffs as instructed every 4 hours as needed for Wheezing/Shortness of Breath or Cough. (Patient not taking: Reported on 09/19/2022) No current facility-administered medications for this visit. ALLERGIES: ALLERGIES Allergen Reactions Amoxicillin-Pot Cla* Rash Vancomycin Shortness of Breath VITALS: BP 128/78 Pulse 91 Temp 36.7 C (98 F) Resp 16 Wt 105.5 kg (232 lb 9.6 oz) LMP 08/29/2022 SpO2 94% BMI 38.71 kg/m PHYSICAL EXAM: GEN: mildly ill appearing HEENT: PERRL, EOMI, conjunctiva clear Ears: TMs without erythema, bulge, or effusion Sinuses: non-tender frontal sinus, non-tender maxillary sinuses Throat: moist mucous membranes, 2-3+ tonsils, no exudate Neck: supple, no thyromegaly, no lymphadenopathy HEART: regular rate and rhythm, no murmurs LUNGS: clear to auscultation, no wheezes or crackles, no increased WOB ASSESSMENT/PLAN: 1. URI, acute - ICD9: 465.9, ICD10: J06.9 - Discussed viral etiology and rationale for treatment. Bacterial sinusitis usually develops after having symptoms for 7-10 days and is less likely to be present while taking an antibiotic. - Symptomatic treatment with prn analgesia and cold medicine. - Supportive care with fluids and rest Consider follow up with PCP or ENT for enlarged tonsils. Mani Gardner MD [facility] History of Present illness Narrative* Michelle Mcwilliams APRN.DIVEMASTER - 09/19/2022 1:37 PM EST Subjective HPI Donna Mcmahon is a 22 year old female who presents with cough, sore throat, congestion, headache, runny nose, body aches for the past 2 days. She is currently on Keflex for E. Coli infection inher uterus. She has been taking ibuprofen and cough syrup at home for her symptoms. She has not hada fever. Review of Systems Constitutional: Negative for chills and fever. HENT: Positive for congestion and sore throat. Respiratory: Positive for cough. Cardiovascular: Negative. Musculoskeletal: Positive for myalgias. Neurological: Positive for headaches. BP 128/74 Pulse 106 Temp 36.9 C (98.5 F) (Tympanic) Resp 18 Wt 104.2 kg (229 lb 12.8 oz) LMP 08/29/2022 SpO2 100% BMI 38.24 kg/m PAST MEDICAL HISTORY Diagnosis Date Mild intermittent asthma without complication PCOS (polycystic ovarian syndrome) PAST SURGICAL HISTORY Procedure Laterality Date STRABISMUS SURG PT W SCAR EO MUSCL ALLERGIES Amoxicillin-Pot Clavulanate and Vancomycin MEDICATIONS cephALEXin (KEFLEX) 500 mg capsule take 1 capsule by mouth twice a day until finished valACYclovir (VALTREX) 500 mg tablet Take 500 mg by mouth twice daily. naproxen (NAPROSYN) 500 mg tablet Take 1 tablet by mouth twice daily with meals. Take with food. cetirizine (ZYRTEC) 10 mg tablet Take 1 tablet by mouth once daily. ondansetron orally disintegrating (ZOFRAN ODT) 4 mg disintegrating tablet Take 1 tablet by mouth every 8 hours as needed for nausea/vomiting. meclizine (ANTIVERT) 12.5 mg tab Take 1 tablet by mouth twice daily. blood sugar diagnostic (BLOOD GLUCOSE TEST) test strip Test blood sugar(s) one times daily. Dx: Type 2 DM - Controlled E11.9 Insulin: No Lancets lancets Test blood sugar(s) one times daily. Dx: Type 2 DM - Controlled E11.9 Insulin: No albuterol (PROVENTIL) 2.5 mg /3 mL (0.083 %) nebulizer solution Use via nebulizer every 4 hours as needed for Wheezing/Shortness of Breath. progesterone micronized (PROMETRIUM) 100 mg capsule Take 100 mg by mouth once daily. (Patient not taking: Reported on 09/19/2022) albuterol HFA (PROVENTIL HFA, VENTOLIN HFA) 90 mcg/actuation inhaler Inhale 2 Puffs as instructed every 4 hours as needed for Wheezing/Shortness of Breath or Cough. (Patient not taking: Reported on 09/19/2022) FAMILY HISTORY Problem Relation Age of Onset Hypertension Father Social History Tobacco Use Smoking status: Never Smokeless tobacco: Never Vaping Use Vaping Use: Never used Substance Use Topics Alcohol use: Not Currently Drug use: Never Objective Physical Exam Vitals and nursing note reviewed. Constitutional: Appearance: Normal appearance. HENT: Right Ear: Tympanic membrane, ear canal and external ear normal. Left Ear: Tympanic membrane, ear canal and external ear normal. Mouth/Throat: Mouth: Mucous membranes are moist. Pharynx: Uvula midline. Posterior oropharyngeal erythema present. No oropharyngeal exudate. Cardiovascular: Rate and Rhythm: Normal rate and regular rhythm. Heart sounds: Normal heart sounds. Pulmonary: Effort: Pulmonary effort is normal. No respiratory distress. Breath sounds: Normal breath sounds. No wheezing or rales. Musculoskeletal: Cervical back: Neck supple. Lymphadenopathy: Cervical: No cervical adenopathy. Skin: General: Skin is warm and dry. Findings: No erythema or rash. Neurological: Mental Status: She is alert. ASSESSMENT/PLAN: 1. Sore throat - ICD9: 462, ICD10: J02.9 (primary diagnosis) - STREP A MOLECULAR (POC)- negative if office. 2. Flu-like symptoms - ICD9: 780.99, ICD10: R68.89 - COVID WITH FLUA+B, ROUTINE - Follow-up with your PCP in 3-5 days if symptoms have not improved or sooner if symptoms worsen - Discussed red flags and need for immediate medical evaluation if any occur. - Discussed supportive care treatment with fluids, rest and analgesia. - Discussed expected course of illness Michelle Mcwilliams APRN.CUCO [facility] Instructions* Patient Instructions* Michelle Mcwilliams APRN.CUCO - 09/19/2022 1:37 PM EST ASSESSMENT/PLAN: 1. Sore throat - ICD9: 462, ICD10: J02.9 (primary diagnosis) - STREP A MOLECULAR (POC)- negative if office. 2. Flu-like symptoms - ICD9: 780.99, ICD10: R68.89 - COVID WITH FLUA+B, ROUTINE - Follow-up with your PCP in 3-5 days if symptoms have not improved or sooner if symptoms worsen - Discussed red flags and need for immediate medical evaluation if any occur. - Discussed supportive care treatment with fluids, rest and analgesia. - Discussed expected course of illness Michelle Mcwilliams APRN.DIVEMASTER [facility] PATIENT INFO INFLUENZA INTRODUCTION Influenza (commonly called the flu) is a highly contagious illness that can occur in children or adults of any age. It occurs more often in the winter months because people spend more time in close contact with one another. The flu is spread easily from vhzwfl-ch-tsvydr by coughing, sneezing, or touching surfaces. Every year, complications of the flu require more than 200,000 people in the [place] to be hospitalized. Serious illness is more likely in the very young, older adults, women, and people who have certain health problems such as asthma or other forms of lung disease. There have been several widespread flu outbreaks (called pandemics), which led to the deaths of many people worldwide. These outbreaks occurred when new strains of influenza viruses formed (often from pigs or birds) and humans became infected because they had no immunity to these viruses. FLU SYMPTOMS Symptoms of seasonal flu can vary from person to person, but usually include: Fever (temperature higher than 100 F or 37.8 C) Headache and muscle aches Fatigue Cough and sore throat may also be present People with the flu usually have a fever for two to five days. This is different than fever caused by other upper respiratory viruses, which usually resolve after 24 to 48 hours. Some people have cold-like symptoms (runny nose, sore throat) during the flu while others have fever and muscle aches. Flu symptoms usually improve over two to five days, although the illness may last for a week or more. Weakness and fatigue may persist for several weeks Flu complications -- Complications of influenza occur in some people; pneumonia is the most common complication. Pneumonia is a serious infection of the lungs, and is more likely to occur in people over the age of 65, people who live in fpc care facilities (nursing homes), and those with other illnesses such as diabetes or conditions affecting the heart or lungs. FLU DIAGNOSIS Influenza is usually diagnosed based on symptoms (fever, cough and muscle aches). Lab testing for influenza is performed in certain cases, such as during a new influenza outbreak in a community. FLU TREATMENT When to seek help -- Most people with the flu recover within one to two weeks without treatment. However, serious complications of the flu can occur. Call your doctor or nurse immediately if: You feel short of breath or have trouble breathing You have pain or pressure in your chest or stomach You have signs of being dehydrated, such as dizziness when standing or not passing urine You feel confused You cannot stop vomiting or you cannot drink enough fluids There are several groups of people who are at increased risk for flu complications. These include women, young children (<5 years of age, and especially <2 years of age), people ?65 years of age, and people with certain diseases such as chronic lung disease (such as asthma), heart disease, diabetes, immunosuppressing conditions (such as HIV infection or transplantation), and some other diseases. If you or your child has flu symptoms and is at increased risk of flu complications, you should call your healthcare provider. Treat symptoms -- Treating the symptoms of influenza can help you to feel better, but will not makethe flu go away faster. Rest until the flu is fully resolved, especially if the illness has been severe Fluids -- Drink enough fluids so that you do not become dehydrated. One way to textiles and clothing teacher if you are drinking enough is to look at the color of your urine. Normally, urine should be light yellow to nearlycolorless. If you are drinking enough, you should pass urine every three to five hours. Acetaminophen (such as Tylenol and other brands) can relieve fever, headache, and muscle aches. Aspirin, and medicines that include aspirin (eg, bismuth subsalicylate; PeptoBismol), are not recommended for children under 18 because aspirin can lead to a serious disease called Mikey syndrome. Cough medicines are not usually helpful; cough usually resolves without treatment. We do not recommend cough or cold medicine for children under age six years. Antiviral treatment -- Antiviral medicines can be used to treat or prevent influenza. When used as a treatment, the medicine does not eliminate flu symptoms, although it can reduce the severity and duration of symptoms by about one day. Not every person with influenza needs an antiviral medicine; the decision is based upon your risk of developing complications of influenza. Antiviral treatment is most effective for seasonal influenza when it is taken within the first 48 hours of flu symptoms. Side effects -- Zanamivir and oseltamivir can cause mild side effects, including nausea and vomiting; zanamivir, which is inhaled, can cause difficulty breathing in some cases. Most people are able to continue the medicine despite the side effects. Antibiotics -- Antibiotics are NOT useful for treating viral illnesses such as influenza. Antibiotics should only used if there is a bacterial complication of the flu such as bacterial pneumonia, earinfection, or sinusitis. Antibiotics can cause side effects and lead to development of antibiotic resistance. [facility] Hospital Discharge instructions Patient Education 09/12/2022 14:21:35 Pain Control (Child) Pain Control (Child) All children feel pain, even tiny babies. Pain is both a physical and a mental experience. It is often linked with fear and stress. Both short-term and ongoing (chronic) pain can harm children s ability to interact with the world around them. Pain can cause problems for a child at home and at school. Pain has many causes. It can be a result of an injury. It can be caused by medical treatments, suchas surgery, injections, or tests. And an illness, such as cancer, can also cause it. Pain control will make a child happier and more comfortable. If the child had an injury or surgery,it will also help in healing. Home care Your child s healthcare provider may prescribe medicines for pain relief and relaxation. These may include acetaminophen or ibuprofen. Follow all instructions for giving any medicine to your child. Talk with the healthcare provider about any side effects to expect. Don t give your child aspirin unless told by your child's healthcare provider to do so. Don't give your child any other medicine without first asking the provider. Give your child pain medicine on time as prescribed. This helps control pain before it gets severe.Don t skip doses or wait too long between doses. Follow medicine instructions carefully. The amount your child should take (dosage) is based on factors such as body weight and age. Dosages for children tend to be lower than for adults. Don t give ahigher dosage than instructed. This can be dangerous. Let the healthcare provider know what medicines have worked well for your child in the past. Mention if your child prefers liquids to pills. Tell the healthcare provider if the pain medicine is not working. He or she can adjust the medicinebefore your child s pain gets severe. oPain in babies and toddlers. Signs of pain include crying that can t be soothed, anxious facial expressions, or changes in sleeping. A sweaty forehead or fast pulse may also be a sign of pain. oPain in older children. Talk with your child about his or her pain. Your child may be able to describe the pain, answer questions about it, or even point to the painful area. If a child has trouble describing pain, use a pain scale with faces. Using medicine safely Always call your child's healthcare provider before giving acetaminophen to a child under 2 years of age If your baby is under 3 months old and has a fever, call your child's healthcare provider right away For children 2 years of age and older, check the label to see how much medicine to give. Use your child's weight to determine the dose. If you don't know your child's weight, go by your child's age for the dose amount. Never give adult medicines to children. Never give your child another child's prescription medicine Only use the dosing device that comes with the medicine. Keep medicines out of reach of children. If possible, store medicines in a locked cabinet away fromchildren and teens. If you think your child has taken too much medicine, contact Poison Control right away at [phone]. If you have any questions about your child's medicines, call your healthcare provider before givingthem. Treating pain without medicine In babies and toddlers: Try holding, rocking, cuddling, or massaging your child. Physical touch can be soothing. Wrap (swaddle) your infant tightly in a warm blanket. Hold your child next to your bare skin. Lmfv-ag-wjcy contact can be comforting. Encourage thumb sucking or using a pacifier. This may soothe babies and toddlers. In older children: Try holding, rocking, cuddling, or massaging your child. Physical touch can be soothing to a child of any age. Help distract your child s from the pain with play. Try blowing bubbles, watching videos, telling stories, or playing with toys or games. Your child might enjoy listening to music, reading or being read to, or doing arts and crafts. Try guided imagery. This is done by having your child imagine a pleasant or happy scene. He or she should focus on the scene s sights, smells, and feelings. This can help take the child s attention away from pain. Help your child with relaxation exercises. Relaxation loosens tense muscles and calms an anxious mind. An older child who can follow instructions may try controlled breathing. Taking long, deep breaths can reduce heart rate and blood pressure. Relaxation can also help reduce pain and relieve nausea. Follow-up care Follow up with your child s healthcare provider, or as advised. Special note to parents If you have any questions or concerns about your child s care or the pain management strategies youare using, talk with your child s healthcare provider. When to seek medical advice Call your child's healthcare provider right away if any of these occur: Pain not getting better even with pain medicine Pain getting worse Any new symptoms [id number] [employer] [address] [place] [address]. All rights reserved. This information is not intended as a substitute for professional medical care. Always follow yourhealthcare professional's instructions. Follow Up Care 09/12/2022 13:55:12 With:KELLY COX DO Address: [address] [place] [id number] [phone] When:2-4 days With:MEGHAN SANTILLAN MD Address: [address] [place] [phone] When:2-4 days [facility] 12-15-2022 Note Discharge Instructions Thank you for allowing [facility] to assist you with your healthcare needs. The following is importantdischarge information regarding your hospital visit. Diagnosis from Today's Visit Acute pelvic pain Pelvic pain What to Do Next Instructions from Your Care Team No qualifying data available. Post Acute Orders No qualifying data available. You Need to Schedule the Following Appointments Follow Up with KELLY COX DO When Within 2-4 days Where: [address] [place] [phone] Follow Up with MEGHAN SANTILLAN MD When Within 2-4 days Where: [address] [place] [phone] Allergies vancomycin Medications Please ask your primary doctor or pharmacist before taking any other medication not listed, including over the counter drugs, herbal medications, vitamins and or supplements as they may interact withyour home medications. What How Much When Why Instructions Last Dose Unchanged albuterol (albuterol 90 mcg/ inh inhalationpowder) 1 puff(s) by inhalation Every 4 hours as needed for as needed Unchanged diphenhydrAMINE (Benadryl 25 mg oral capsule) 1 cap by mouth Four (4) times a day as needed for for itching Itching Unchanged metFORMIN (MetFORMIN (Eqv-Glucophage XR) 500 mg oral tablet, EXTENDED RELEASE) 1 tab(s) by mouth Once a day Unchanged naproxen (Naprosyn 500 mg oral tablet) 1 tab(s) by mouth Twice daily with meals Unchanged ondansetron (Zofran 4 mg oral tablet) 1 tab(s) by mouth Every 6 hours Viral syndrome Cough PRN nausea Unchanged valACYclovir (Valtrex 1 g oral tablet) 1 tab(s) by mouth Every 24 hours Duration: 7 Days Please take this list to your next doctor s visit. Bring all medications you take, including over the counter medications, herbals and other supplements with you to your doctor s visit. Patients and families are reminded to discard old lists and to update any records with all medication providers or retail pharmacies. Education Materials Pain Control (Child) All children feel pain, even tiny babies. Pain is both a physical and a mental experience. It is often linked with fear and stress. Both short-term and ongoing (chronic) pain can harm children s ability to interact with the world around them. Pain can cause problems for a child at home and at school. Pain has many causes. It can be a result of an injury. It can be caused by medical treatments, suchas surgery, injections, or tests. And an illness, such as cancer, can also cause it. Pain control will make a child happier and more comfortable. If the child had an injury or surgery,it will also help in healing. Home care Your child s healthcare provider may prescribe medicines for pain relief and relaxation. These may include acetaminophen or ibuprofen. Follow all instructions for giving any medicine to your child. Talk with the healthcare provider about any side effects to expect. Don t give your child aspirin unless told by your child's healthcare provider to do so. Don't give your child any other medicine without first asking the provider. Give your child pain medicine on time as prescribed. This helps control pain before it gets severe.Don t skip doses or wait too long between doses. Follow medicine instructions carefully. The amount your child should take (dosage) is based on factors such as body weight and age. Dosages for children tend to be lower than for adults. Don t give ahigher dosage than instructed. This can be dangerous. Let the healthcare provider know what medicines have worked well for your child in the past. Mention if your child prefers liquids to pills. Tell the healthcare provider if the pain medicine is not working. He or she can adjust the medicinebefore your child s pain gets severe. oPain in babies and toddlers. Signs of pain include crying that can t be soothed, anxious facial expressions, or changes in sleeping. A sweaty forehead or fast pulse may also be a sign of pain. oPain in older children. Talk with your child about his or her pain. Your child may be able to describe the pain, answer questions about it, or even point to the painful area. If a child has trouble describing pain, use a pain scale with faces. Using medicine safely Always call your child's healthcare provider before giving acetaminophen to a child under 2 years of age If your baby is under 3 months old and has a fever, call your child's healthcare provider right away For children 2 years of age and older, check the label to see how much medicine to give. Use your child's weight to determine the dose. If you don't know your child's weight, go by your child's age for the dose amount. Never give adult medicines to children. Never give your child another child's prescription medicine Only use the dosing device that comes with the medicine. Keep medicines out of reach of children. If possible, store medicines in a locked cabinet away fromchildren and teens. If you think your child has taken too much medicine, contact Poison Control right away at [phone]. If you have any questions about your child's medicines, call your healthcare provider before givingthem. Treating pain without medicine In babies and toddlers: Try holding, rocking, cuddling, or massaging your child. Physical touch can be soothing. Wrap (swaddle) your tightly in a warm blanket. Hold your child next to your bare skin. Cxll-fa-vzej contact can be comforting. Encourage thumb sucking or using a pacifier. This may soothe babies and toddlers. In older children: Try holding, rocking, cuddling, or massaging your child. Physical touch can be soothing to a child of any age. Help distract your child s from the pain with play. Try blowing bubbles, watching videos, telling stories, or playing with toys or games. Your child might enjoy listening to music, reading or being read to, or doing arts and crafts. Try guided imagery. This is done by having your child imagine a pleasant or happy scene. He or she should focus on the scene s sights, smells, and feelings. This can help take the child s attention away from pain. Help your child with relaxation exercises. Relaxation loosens tense muscles and calms an anxious mind. An older child who can follow instructions may try controlled breathing. Taking long, deep breaths can reduce heart rate and blood pressure. Relaxation can also help reduce pain and relieve nausea. Follow-up care Follow up with your child s healthcare provider, or as advised. Special note to parents If you have any questions or concerns about your child s care or the pain management strategies youare using, talk with your child s healthcare provider. When to seek medical advice Call your child's healthcare provider right away if any of these occur: Pain not getting better even with pain medicine Pain getting worse Any new symptoms [phone] [employer] [address] [place] [address]. All rights reserved. This information is not intended as a substitute for professional medical care. Always follow yourhealthcare professional's instructions. Additional Information VACCINATE! IT SAVES LIVES! Members of the community who have not yet received the COVID-19 vaccine and would like to receive it can visit one of [facility] vaccine clinics. There are many vaccine clinic locations within the [facility]. For locations and available times, please visit [email or web address]. It is important to note that some COVID mobile vaccine clinics are held outdoors and may be canceled in rainy orstormy conditions. To learn more about pediatric vaccinations (ages 5-11), we invite you to visit the [facility] webpage. [email or web address] learn more about the COVID-19 vaccine, we invite you to visit the [facility] website for a list of frequently asked questions. [email or web address] web care [facility] Patient Portal Access Instructions: Stay connected with your healthcare team and access your personal medical information anytime with the web care [facility] Patient Portal. If you would like a full copy of your medical records please contact the [facility] Medical Records Department Friday through Friday between 8a.m. and 4:30p.m. Please follow the directions below to access the portal: 1.Access the email account you provided upon registration to the [facility].2.Look for an invitation email from [facility].3.Open the email and access the invitation link: Accept Invitation to [facility] [facility]4.Fill in the required ellis to create your account. Sign into [email or web address] with your username and password that you created in the above steps to stay up to date. You can then view a summary of results, a summary of your visits, and the ability to download your summaries to your computer or send the information securely to a physician. Remember that your healthcare information is confidential, so carefully consider who you will allow to register on the [facility] Patient Portal for access to your information. You can also access the [facility] Patient Portal on the [place]. Simply click on Health Records under [employer] and then click on the [facility] logo. HOW TO SAFELY DISPOSE OF PRESCRIPTION MEDICATIONS Please use one of the following methods to safely dispose of your unused medications. 1.Use a drug disposal kit: the drug disposal pouch allows you to safely discard your old and unuseddrugs. Ask your nurse to give you one when you are discharged.2.Visit a local take-back location: Many local pharmacies and police departments have programs that collect old and unwanted prescriptiondrugs. Call your local pharmacy or go to [email or web address]/[email or web address] to find one close to you.3.Make use of household items: Use cat litter or old coffee grounds to dispose medications if other options arenot available. Mix your drugs with these household products, seal them in an airtight container andthrow it into the garbage. Call [facility]: [phone] to be sure your drugs can be disposed of in this way. Some medicines may require a different approach.4.Never flush your medications down the toilet. IF YOU HAVE BEEN PRESCRIBED AN OPIOIDS FOR PAIN If you have been prescribed an opioid (such as hydrocodone, oxycodone or morphine), it is critical to understand the possible side effects and risks of opioid pain medications. Even when taken as directed, opioids can have several side effects including: Tolerance, meaning you might need to take more of a medication for the same pain relief. Nausea, vomiting and/or constipation. Sleepiness, dizziness, dry mouth, confusion, depression or itching. Physical dependence, meaning you have withdrawal symptoms when a medication is stopped ? this can develop within a few days. KNOW YOUR RESPONSIBILITIES It is important to know exactly how much and how often to take the opioid pain medications you are prescribed. Never take opioids in higher amounts or more often than prescribed. Do not combine opioids with alcohol or other drugs that cause drowsiness, such as benzodiazepines, also known as benzos,including diazepam and alprazolam, muscle relaxants or sleep aids. Never sell or share prescriptionopioids. This is illegal. Store opioids in a secure place and out of reach of others (including children, family, friends and visitors). The last page(s) of this document has been signed and retained as a CHART COPY Signatures Patient Education Materials Pain Control (Child) Medication Leaflets My discharge plan and instructions have been reviewed and explained to me and ISALOME BONITA M L D understand my current condition and have read and understand these discharge instructions. I have received a written copy of the plan/instructions. If I have questions, I am aware that I should contact my doctor. 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 Dedicated duplex Doppler ultrasound is performed, including color Doppler interrogation and spectral waveform analysis, including attempts to define arterial inflow and venous outflow. COMPARISON: None HISTORY: Pelvic pain. IUD placed 1 month ago. FINDINGS: Uterus measures 7.2 x 4.2 x 3.2 cm. Endometrium measures 5 mm in thickness. Echogenic shadowing focus is noted within the endometrial cavity, compatible with IUD. This extends to the fundal portion of the endometrium, and the position appears appropriate. No focal myometrial masses are seen. Right ovary 4.9 x 3.5 x 2 cm. Left ovary 4 x 2.5 x 2 cm. No ovarian masses or lesions are identified. Doppler interrogation of the ovaries is unremarkable bilaterally. No free pelvic fluid seen. No additional contributory finding seen. IMPRESSION: No acute abnormality identified. IUD position appears appropriate. Doppler interrogation of the ovaries is unremarkable. Interpreted by: Ollie De La Rosa MD Preliminary Report By: Ollie De La Rosa MD Electronically signed By Ollie De La Rosa MD Dictated Date: 09/12/2022 3:42:31 PM Prelim Date: 09/12/2022 3:45:09 PM Sign Date: 09/12/2022 3:45:09 PM [facility] Note ORIGINAL EXAMINATION: Ultrasound OF THE PELVIS with Doppler interrogation 09/12/2022 TECHNIQUE: Transabdominal and endovaginal scanning performed. Dedicated duplex Doppler ultrasound is performed, including color Doppler interrogation and spectral waveform analysis, including attempts to define arterial inflow and venous outflow. COMPARISON: None HISTORY: Pelvic pain. IUD placed 1 month ago. FINDINGS: Uterus measures 7.2 x 4.2 x 3.2 cm. Endometrium measures 5 mm in thickness. Echogenic shadowing focus is noted within the endometrial cavity, compatible with IUD. This extends to the fundal portion of the endometrium, and the position appears appropriate. No focal myometrial masses are seen. Right ovary 4.9 x 3.5 x 2 cm. Left ovary 4 x 2.5 x 2 cm. No ovarian masses or lesions are identified. Doppler interrogation of the ovaries is unremarkable bilaterally. No free pelvic fluid seen. No additional contributory finding seen. IMPRESSION: No acute abnormality identified. IUD position appears appropriate. Doppler interrogation of the ovaries is unremarkable. Interpreted by: Ollie De La Rosa MD Preliminary Report By: Ollie De La Rosa MD Electronically signed By Ollie De La Rosa MD Dictated Date: 09/12/2022 3:42:31 PM Prelim Date: 09/12/2022 3:45:09 PM Sign Date: 09/12/2022 3:45:09 PM [facility]ing [facility] History of Present illness Narrative* Giorgi SmithDOMINIQUE salazar.DIVEMASTER - 08/07/2022 4:16 PM EST Subjective HPI Nontoxic-appearing female presents urgent care chief plaint possible ear infection. Duration of symptom 1 day. Associated symptoms right ear pain. Patient states at times she does have transient jaw pain. History of ear infections this feels similar. Last ear infection April of this year. Was place d on Augmentin was unable to tolerate it. Switch to Omnicef. Able to tolerate this antibiotic. Has not use any OTC medications no known sick contacts. Denies any fever body aches chills productive cough chest pain shortness of breath pleuritic pain hemoptysis nausea vomiting abdominal pain change in bowel or bladder habits. Past medical history prescription medication use and allergies reviewed. Denies chance of is not breast-feeding. .Patient presents with: Ear Pain: right ear and jaw pain x 1 day PAST MEDICAL HISTORY Diagnosis Date Mild intermittent asthma without complication PCOS (polycystic ovarian syndrome) PAST SURGICAL HISTORY Procedure Laterality Date STRABISMUS SURG PT W SCAR EO MUSCL ALLERGIES Amoxicillin-Pot Clavulanate and Vancomycin MEDICATIONS naproxen (NAPROSYN) 500 mg tablet Take 1 tablet by mouth twice daily with meals. Take with food. progesterone micronized (PROMETRIUM) 100 mg capsule Take 100 mg by mouth once daily. cetirizine (ZYRTEC) 10 mg tablet Take 1 tablet by mouth once daily. ondansetron orally disintegrating (ZOFRAN ODT) 4 mg disintegrating tablet Take 1 tablet by mouth every 8 hours as needed for nausea/vomiting. meclizine (ANTIVERT) 12.5 mg tab Take 1 tablet by mouth twice daily. blood sugar diagnostic (BLOOD GLUCOSE TEST) test strip Test blood sugar(s) one times daily. Dx: Type 2 DM - Controlled E11.9 Insulin: No Lancets lancets Test blood sugar(s) one times daily. Dx: Type 2 DM - Controlled E11.9 Insulin: No albuterol HFA (PROVENTIL HFA, VENTOLIN HFA) 90 mcg/actuation inhaler Inhale 2 Puffs as instructed every 4 hours as needed for Wheezing/Shortness of Breath or Cough. albuterol (PROVENTIL) 2.5 mg /3 mL (0.083 %) nebulizer solution Use via nebulizer every 4 hours as needed for Wheezing/Shortness of Breath. valACYclovir (VALTREX) 500 mg tablet Take 500 mg by mouth twice daily. FAMILY HISTORY Problem Relation Age of Onset Hypertension Father Social History Tobacco Use Smoking status: Never Smokeless tobacco: Never Vaping Use Vaping Use: Never used Substance Use Topics Alcohol use: Not Currently Drug use: Never BP 122/76 Pulse 98 Temp 36.6 C (97.8 F) Resp 16 Wt 106.1 kg (234 lb) LMP 03/08/2022 SpO2 97% BMI 38.94 kg/m Review of Systems Constitutional: Negative for chills, fever and malaise/fatigue. HENT: Positive for ear pain. Negative for congestion, ear discharge, sinus pain and sore throat. Eyes: Negative for blurred vision, pain, discharge and redness. Respiratory: Negative for cough, hemoptysis, sputum production, shortness of breath, wheezing and stridor. Cardiovascular: Negative for chest pain. Gastrointestinal: Negative for abdominal pain, diarrhea, nausea and vomiting. Musculoskeletal: Negative for myalgias. Skin: Negative for itching and rash. Neurological: Negative for dizziness and headaches. Objective Physical Exam Constitutional: General: She is not in acute distress. Appearance: She is not diaphoretic. HENT: Head: Normocephalic. Jaw: No trismus, tenderness, swelling or pain on movement. Right Ear: Hearing, ear canal and external ear normal. No mastoid tenderness. Tympanic membrane is erythematous and bulging. Left Ear: Hearing, tympanic membrane, ear canal and external ear normal. No mastoid tenderness. Mouth/Throat: Mouth: Mucous membranes are moist. Pharynx: Oropharynx is clear. No oropharyngeal exudate or posterior oropharyngeal erythema. Eyes: Conjunctiva/sclera: Conjunctivae normal. Pupils: Pupils are equal, round, and reactive to light. Cardiovascular: Rate and Rhythm: Normal rate and regular rhythm. Heart sounds: Normal heart sounds. Pulmonary: Effort: Pulmonary effort is normal. No tachypnea, accessory muscle usage or respiratory distress. Breath sounds: Normal breath sounds. No stridor. No wheezing, rhonchi or rales. Abdominal: Palpations: Abdomen is soft. Tenderness: There is no abdominal tenderness. Musculoskeletal: Cervical back: Normal range of motion and neck supple. No rigidity or tenderness. Lymphadenopathy: Cervical: No cervical adenopathy. Skin: General: Skin is warm and dry. Neurological: Mental Status: She is alert and oriented to person, place, and time. ASSESSMENT/PLAN: 1. Acute otitis media, left - ICD9: 382.9, ICD10: H66.92 Diagnosis otitis media of left ear. Will be placed on Omnicef. Has tolerated this antibiotic in thepast follow-up with PCP 3 to 5 days reevaluation. Patient was educated on supportive therapies. Patient will follow up with primary care provider as needed. Patient was instructed to immediately proceed to emergency room for any new, worsening, or symptoms lasting longer than anticipated. The patient's clinical presentation is otherwise unremarkable at this time. Based on exam and clinical finding, the patient is stable for discharge. Plan of care was discussed with patient. Patient verbalizes understanding and agrees to plan of care. This note was generated using PassKit software. It may contain errors in wording, punctuation, or spelling. Giorgi Groves APRN.CUCO [facility] Discharge instructions Patient Education 07/27/2022 05:05:48 URI, Viral, No Abx (Adult) Viral Upper Respiratory Illness (Adult) You have a viral upper respiratory illness (URI), which is another term for the common cold. This illness is contagious during the first few days. It is spread through the air by coughing and sneezing. It may also be spread by direct contact (touching the sick person and then touching your own eyes, nose, or mouth). Frequent handwashing will decrease risk of spread. Most viral illnesses go away within 7 to 10 days with rest and simple home remedies. Sometimes the illness may last for several weeks. Antibiotics will not kill a virus, and they are generally not prescribed for this condition. Home care If symptoms are severe, rest at home for the first 2 to 3 days. When you resume activity, don't letyourself get too tired. Don't smoke. If you need help stopping, talk with your healthcare provider. Avoid being exposed to cigarette smoke (yours or others ). You may use acetaminophen or ibuprofen to control pain and fever, unless another medicine was prescribed. If you have chronic liver or kidney disease, have ever had a stomach ulcer or gastrointestinal bleeding, or are taking blood-thinning medicines, talk with your healthcare provider before using these medicines. Aspirin should never be given to anyone under 18 years of age who is ill with a viral infection or fever. It may cause severe liver or brain damage. Your appetite may be poor, so a light diet is fine. Stay well hydrated by drinking 6 to 8 glasses of fluids per day (water, soft drinks, juices, tea, or soup). Extra fluids will help loosen secretions in the nose and lungs. Lsxv-sor-pncerac cold medicines will not shorten the length of time you re sick, but they may be helpful for the following symptoms: cough, sore throat, and nasal and sinus congestion. If you take prescription medicines, ask your healthcare provider or pharmacist which djgl-vzb-ihhzubc medicines are safe to use. (Note: Don't use decongestants if you have high blood pressure.) Follow-up care Follow up with your healthcare provider, or as advised. When to seek medical advice Call your healthcare provider right away if any of these occur: Cough with lots of colored sputum (mucus) Severe headache; face, neck, or ear pain Difficulty swallowing due to throat pain Fever of 100.4 F (38 C) or higher, or as directed by your healthcare provider Call 911 Call 911 if any of these occur: Chest pain, shortness of breath, wheezing, or difficulty breathing Coughing up blood Very severe pain with swallowing, especially if it goes along with a muffled voice [phone] [employer]. [address] [place] [address], [place] [address]. All rights reserved. This information is not intended as a substitute for professional medical care. Always follow yourhealthcare professional's instructions. Follow Up Care 07/27/2022 04:48:48 With:Leighann Go Pt. Refferral [phone] Address:Unknown When:2-4 days [facility] 10-29-2022 Note Discharge Instructions Thank you for allowing [facility] to assist you with your healthcare needs. The following is importantdischarge information regarding your hospital visit. Diagnosis from Today's Visit URI - Upper respiratory infection Sinus Pain/Congestion Sore throat - Adult What to Do Next Instructions from Your Care Team No qualifying data available. Post Acute Orders No qualifying data available. You Need to Schedule the Following Appointments Follow Up with Call AMB New Pt. Refferral [phone] When Within 2-4 days Allergies vancomycin Medications Please ask your primary doctor or pharmacist before taking any other medication not listed, including over the counter drugs, herbal medications, vitamins and or supplements as they may interact withyour home medications. What How Much When Why Instructions Last Dose Changed ondansetron (ondansetron 4 mg oral tablet, disintegrating) 1 tab(s) by mouth Every 6 hours URI - Upper respiratory infection Duration: 4 Days Printed Prescription Changed ondansetron (Zofran 4 mg oral tablet) 1 tab(s) by mouth Every 6 hours Viral syndrome Cough PRN nausea Unchanged albuterol (albuterol 90 mcg/ inh inhalation powder) 1 puff(s) by inhalation Every 4 hours as needed for as needed Unchanged diphenhydrAMINE (Benadryl 25 mg oral capsule) 1 cap by mouth Four (4) times a day as needed for for itching Itching Unchanged metFORMIN (MetFORMIN (Eqv-Glucophage XR) 500 mg oral tablet, EXTENDED RELEASE) 1 tab(s) by mouth Once a day Unchanged naproxen (Naprosyn 500 mg oral tablet) 1 tab(s) by mouth Twice daily with meals Unchanged valACYclovir (Valtrex 1 g oral tablet) 1 tab(s) by mouth Every 24 hours Duration: 7 Days Please take this list to your next doctor s visit. Bring all medications you take, including over the counter medications, herbals and other supplements with you to your doctor s visit. Patients and families are reminded to discard old lists and to update any records with all medication providers or retail pharmacies. Education Materials Viral Upper Respiratory Illness (Adult) You have a viral upper respiratory illness (URI), which is another term for the common cold. This illness is contagious during the first few days. It is spread through the air by coughing and sneezing. It may also be spread by direct contact (touching the sick person and then touching your own eyes, nose, or mouth). Frequent handwashing will decrease risk of spread. Most viral illnesses go away within 7 to 10 days with rest and simple home remedies. Sometimes the illness may last for several weeks. Antibiotics will not kill a virus, and they are generally not prescribed for this condition. Home care If symptoms are severe, rest at home for the first 2 to 3 days. When you resume activity, don't letyourself get too tired. Don't smoke. If you need help stopping, talk with your healthcare provider. Avoid being exposed to cigarette smoke (yours or others ). You may use acetaminophen or ibuprofen to control pain and fever, unless another medicine was prescribed. If you have chronic liver or kidney disease, have ever had a stomach ulcer or gastrointestinal bleeding, or are taking blood-thinning medicines, talk with your healthcare provider before using these medicines. Aspirin should never be given to anyone under 18 years of age who is ill with a viral infection or fever. It may cause severe liver or brain damage. Your appetite may be poor, so a light diet is fine. Stay well hydrated by drinking 6 to 8 glasses of fluids per day (water, soft drinks, juices, tea, or soup). Extra fluids will help loosen secretions in the nose and lungs. Rxqk-mdr-oavelpx cold medicines will not shorten the length of time you re sick, but they may be helpful for the following symptoms: cough, sore throat, and nasal and sinus congestion. If you take prescription medicines, ask your healthcare provider or pharmacist which drul-rjk-uzlinwj medicines are safe to use. (Note: Don't use decongestants if you have high blood pressure.) Follow-up care Follow up with your healthcare provider, or as advised. When to seek medical advice Call your healthcare provider right away if any of these occur: Cough with lots of colored sputum (mucus) Severe headache; face, neck, or ear pain Difficulty swallowing due to throat pain Fever of 100.4 F (38 C) or higher, or as directed by your healthcare provider Call 911 Call 911 if any of these occur: Chest pain, shortness of breath, wheezing, or difficulty breathing Coughing up blood Very severe pain with swallowing, especially if it goes along with a muffled voice [phone] [employer]. [address] [place] [address], [place] [address]. All rights reserved. This information is not intended as a substitute for professional medical care. Always follow yourhealthcare professional's instructions. Additional Information VACCINATE! IT SAVES LIVES! Members of the community who have not yet received the COVID-19 vaccine and would like to receive it can visit one of [facility] vaccine clinics. There are many vaccine clinic locations within the [facility]. For locations and available times, please visit [email or web address]. It is important to note that some COVID mobile vaccine clinics are held outdoors and may be canceled in rainy orstormy conditions. To learn more about pediatric vaccinations (ages 5-11), we invite you to visit the [facility] webpage. [email or web address] learn more about the COVID-19 vaccine, we invite you to visit the [facility] website for a list of frequently asked questions. [email or web address] [facility] Patient Portal Access Instructions: Stay connected with your healthcare team and access your personal medical information anytime with the [facility] Patient Portal. If you would like a full copy of your medical records please contact the [facility] Medical Records Department Friday through Friday between 8a.m. and 4:30p.m. Please follow the directions below to access the portal: 1.Access the email account you provided upon registration to the hospital.2.Look for an invitation email from [facility].3.Open the email and access the invitation link: Accept Invitation to [facility]4.Fill in the required ellis to create your account. Sign into [email or web address] with your username and password that you created in the above steps to stay up to date. You can then view a summary of results, a summary of your visits, and the ability to download your summaries to your computer or send the information securely to a physician. Remember that your healthcare information is confidential, so carefully consider who you will allow to register on the [facility] Patient Portal for access to your information. You can also access the web care [facility] Patient Portal on the Razmir eris. Simply click on Health Records under [employer] and then click on the Hoods logo. HOW TO SAFELY DISPOSE OF PRESCRIPTION MEDICATIONS Please use one of the following methods to safely dispose of your unused medications. 1.Use a drug disposal kit: the drug disposal pouch allows you to safely discard your old and unuseddrugs. Ask your nurse to give you one when you are discharged.2.Visit a local take-back location: Many local pharmacies and police departments have programs that collect old and unwanted prescriptiondrugs. Call your local pharmacy or go to http://[email or web address]/8H5Qj9o to find one close to you.3.Make use of household items: Use cat litter or old coffee grounds to dispose medications if other options arenot available. Mix your drugs with these household products, seal them in an airtight container andthrow it into the garbage. Call [facility]: [phone] to be sure your drugs can be disposed of in this way. Some medicines may require a different approach.4.Never flush your medications down the toilet. IF YOU HAVE BEEN PRESCRIBED AN OPIOIDS FOR PAIN If you have been prescribed an opioid (such as hydrocodone, oxycodone or morphine), it is critical to understand the possible side effects and risks of opioid pain medications. Even when taken as directed, opioids can have several side effects including: Tolerance, meaning you might need to take more of a medication for the same pain relief. Nausea, vomiting and/or constipation. Sleepiness, dizziness, dry mouth, confusion, depression or itching. Physical dependence, meaning you have withdrawal symptoms when a medication is stopped ? this can develop within a few days. KNOW YOUR RESPONSIBILITIES It is important to know exactly how much and how often to take the opioid pain medications you are prescribed. Never take opioids in higher amounts or more often than prescribed. Do not combine opioids with alcohol or other drugs that cause drowsiness, such as benzodiazepines, also known as benzos,including diazepam and alprazolam, muscle relaxants or sleep aids. Never sell or share prescriptionopioids. This is illegal. Store opioids in a secure place and out of reach of others (including children, family, friends and visitors). The last page(s) of this document has been signed and retained as a CHART COPY Signatures Patient Education Materials URI, Viral, No Abx (Adult) Medication Leaflets My discharge plan and instructions have been reviewed and explained to me and I,DONNA MCMAHON understand my current condition and have read and understand these discharge instructions. I have received a written copy of the plan/instructions. If I have questions, I am aware that I should contact my doctor. 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 ONSET: middle school LOCATION: bilateral legs- all over DURATION: intermittent CHARACTERISTICS: feels like walking on glass, sharps pain like lightning, legs feel like they are going to explode, pelvis feels like elephant is stepping on it AGGRAVATING FEATURES: sitting or standing for too long ALLEVIATING FEATURES: resting helps RADIATION: pains in different area Denies past or previous leg/pelvic injuries, leg swelling, hx of smoking, joint swelling or redness PAST MEDICAL HISTORY Diagnosis Date Mild intermittent asthma without complication PCOS (polycystic ovarian syndrome) ALLERGIES Amoxicillin-Pot Clavulanate and Vancomycin MEDICATIONS Current Outpatient Medications Medication Sig progesterone micronized (PROMETRIUM) 100 mg capsule Take 100 mg by mouth once daily. cetirizine (ZYRTEC) 10 mg tablet Take 1 tablet by mouth once daily. ondansetron orally disintegrating (ZOFRAN ODT) 4 mg disintegrating tablet Take 1 tablet by mouth every 8 hours as needed for nausea/vomiting. meclizine (ANTIVERT) 12.5 mg tab Take 1 tablet by mouth twice daily. blood sugar diagnostic (BLOOD GLUCOSE TEST) test strip Test blood sugar(s) one times daily. Dx: Type 2 DM - Controlled E11.9 Insulin: No Lancets lancets Test blood sugar(s) one times daily. Dx: Type 2 DM - Controlled E11.9 Insulin: No albuterol HFA (PROVENTIL HFA, VENTOLIN HFA) 90 mcg/actuation inhaler Inhale 2 Puffs as instructed every 4 hours as needed for Wheezing/Shortness of Breath or Cough. albuterol (PROVENTIL) 2.5 mg /3 mL (0.083 %) nebulizer solution Use via nebulizer every 4 hours as needed for Wheezing/Shortness of Breath. No current facility-administered medications for this visit. Medications and allergies reviewed by this provider. SOCIAL HISTORY Social History Tobacco Use Smoking status: Never Smokeless tobacco: Never Vaping Use Vaping Use: Never used Substance Use Topics Alcohol use: Not Currently Drug use: Never REVIEW OF SYSTEMS All other reviewed and negative other than HPI. OBJECTIVE: BP 128/84 Pulse 102 Resp 18 Wt 105.7 kg (233 lb) LMP 03/08/2022 SpO2 98% BMI 38.77 kg/m. Vital signs reviewed by this provider. APPEARANCE Well appearing, alert, in no acute distress, well-hydrated, well nourished. EYES conjunctiva and sclera normal. EXTREMITIES Extremities normal, No deformities, No skin discoloration, No edema, and Normal pulses bilaterally. HIPS: FROM without pain. No swelling or erythema observed NEURO Awake, alert and oriented x 3, Reflexes symmetrical, Normal gait, No involuntary motions., and negative findings: muscle tone normal, muscle strength normal, reflexes normal and symmetric, plantar response downgoing bilaterally SKIN Skin color, texture, turgor normal, no suspicious rashes or lesions to exposed skin Feet: Shoes and socks removed, No deformities, ulcers, calluses, normal distal pulses, and sensitive to 10 gm monofilament HEPATITIS B(1 of 3 - 3-dose series) Never done PNEUMOCOCCAL(1 - PCV) Never done DILATED RETINAL EXAM Never done DEPRESSION ASSESSMENT Never done INFLUENZA(1) due on 05/30/2022 LDL CHOLESTEROL due on 07/24/2022 DTAP,TDAP,TD(1 - Tdap) due on 07/24/2022 HPV VACCINE(1 - 2-dose series) due on 07/24/2022 COVID-19 VACCINE(1) due on 07/24/2022 URINE ALBUMIN:CREATININE RATIO due on 10/23/2022 DIABETIC FOOT EXAM due on 10/23/2022 HBA1C due on 10/31/2022 GC (GONORRHEA) SCREENING (18-24) due on 11/23/2022 CHLAMYDIA SCREENING (18-24) due on 11/23/2022 ANNUAL PCP TEAM CHRONIC DISEASE VISIT due on 05/03/2023 HEPATITIS C SCREENING Completed HIV SCREENING Completed MENINGOCOCCAL B: Consider based on risk Discontinued ASSESSMENT/PLAN: 1. Pain in both lower extremities - ICD9: 729.5, ICD10: M79.604, M79.605 (primary diagnosis) - no red flag symptoms or exam findings - red flag symptoms discussed, verbalizes understanding - recommend compression hose on in the AM off in the evening - may use OTC topical pain relievers or pain patches - NAPROXEN 500 MG TABLET- common side effects discussed, take with food and do no take or use additional NSAID products while taking - follow-up if symptoms fail to improve 2. Encounter for immunization - ICD9: V03.89, ICD10: Z23 - INFLUENZA VACCINE QUADRIVALENT 6 MO - 64 YRS IM Ying Piña APRN.CNP Prescription instructions reviewed with patient as applicable. Patient advised if symptoms do not improve or if symptoms worsen sooner, to contact their primary care physician. Potential red flag symptoms discussed with the patient. Reviewed appropriate action plan to take if red flag symptoms occur. Patient agreeable to treatment plan. I spent a total of 25 minutes on the date of the service which included preparing to see the patient, [id number] patient care, completing clinical documentation, obtaining and/or reviewing separately obtained history, performing a medically appropriate examination, counseling and educating the pat ient/family/caregiver, and ordering medications, tests, or procedures. [facility] Discharge instructions Patient Education 06/19/2022 12:51:29 PAIN, Uncertain Cause (Acute) Pain, Uncertain Cause [Acute] Pain is the body s way of calling attention to a problem. Pain can be caused by many conditions - some minor, some serious. In your case, we were not able to find the exact cause for your pain. However, at this time there is no sign of any serious or life-threatening illness causing your pain. Sometimes more tests will beneeded to determine the cause. Other times, just allowing more time to pass will either make it clear what the problem is, or the pain will go away by itself. Home Care: You may use acetaminophen (Tylenol) or ibuprofen (Motrin, Advil) to control pain, unless another medicine was prescribed. [NOTE: If you have chronic liver or kidney disease or ever had a stomach ulcer or GI bleeding, talk with your doctor before using these medicines.] Follow Up with your doctor or as advised by our staff. Get Prompt Medical Attention if any of the following occur: Changes in the pattern of your pain Appearance of new symptoms Fever of 100.4 F (38 C) or higher, or as directed by your healthcare provider [id number] [employer]. [address] [place] [address]. All rights reserved. This information is not intended as a substitute for professional medical care. Always follow yourhealthcare professional's instructions. 06/19/2022 12:51:28 Possible Causes of Low Back or Leg Pain Possible Causes of Low Back or Leg Pain BIG: The symptoms in your back or leg may be due to pressure on a nerve. This pressure may be caused by a damaged disk or by abnormal bone growth. Either way, you may feel pain, burning, tingling, ornumbness. If you have pressure on a nerve that connects to the sciatic nerve, pain may shoot down your leg. Pressure from the disk Constant wear and tear can weaken a disk over time and cause back pain. The disk can then be damaged by a sudden movement or injury. If its soft center starts to bulge, the disk may press on a nerve.Or the outside of the disk may tear, and the soft center may squeeze through and pinch a nerve. Pressure from bone As a disk wears out, the vertebrae right above and below the disk start to touch. This can put pressure on a nerve. Often, abnormal bone (called bone spurs) grows where the vertebrae rub against eachother. This can cause the foramen or the spinal canal to narrow (called stenosis) and press againsta nerve. [phone] [employer] [address] [place] [address], [place] [address]. All rights reserved. This information is not intended as a substitute for professional medical care. Always follow yourhealthcare professional's instructions. Follow Up Care 06/19/2022 12:28:10 With:Follow up with primary care provider Address:Unknown When:2-4 days [facility] 09-21-2022 Emergency department Discharge summary Discharge Instructions Thank you for allowing [facility] to assist you with your healthcare needs. The following is importantdischarge information regarding your hospital visit. Diagnosis from Today's Visit Pain in both legs Leg pain-swelling What to Do Next Instructions from Your Care Team Discharge Return to Work, School, or Sports (Return to Work, School, or Sports) - Ordered -- 06/19/22, 06/21/22, May return to: work, 06/19/22 12:51:00 EDT Post Acute Orders No qualifying data available. You Need to Schedule the Following Appointments Follow Up with Follow up with primary care provider When Within 2-4 days Allergies vancomycin Medications Please ask your primary doctor or pharmacist before taking any other medication not listed, including over the counter drugs, herbal medications, vitamins and or supplements as they may interact withyour home medications. What How Much When Why Instructions Last Dose Changed naproxen (Anaprox-DS 550 mg oral tablet) 1 tab(s) by mouth Two (2) times a day Pain in both legs Duration: 7 Days Printed Prescription Changed naproxen (Naprosyn 500 mg oral tablet) 1 tab(s) by mouth Twice daily with meals Unchanged albuterol (albuterol 90 mcg/ inh inhalation powder) 1 puff(s) by inhalation Every 4 hours as needed for as needed Unchanged diphenhydrAMINE (Benadryl 25 mg oral capsule) 1 cap by mouth Four (4) times a day as needed for for itching Itching Unchanged metFORMIN (MetFORMIN (Eqv-Glucophage XR) 500 mg oral tablet, EXTENDED RELEASE) 1 tab(s) by mouth Once a day Unchanged ondansetron (Zofran 4 mg oral tablet) 1 tab(s) by mouth Every 6 hours Viral syndrome Cough PRN nausea Unchanged valACYclovir (Valtrex 1 g oral tablet) 1 tab(s) by mouth Every 24 hours Duration: 7 Days Please take this list to your next doctor s visit. Bring all medications you take, including over the counter medications, herbals and other supplements with you to your doctor s visit. Patients and families are reminded to discard old lists and to update any records with all medication providers or retail pharmacies. Education Materials Pain, Uncertain Cause [Acute] Pain is the body s way of calling attention to a problem. Pain can be caused by many conditions - some minor, some serious. In your case, we were not able to find the exact cause for your pain. However, at this time there is no sign of any serious or life-threatening illness causing your pain. Sometimes more tests will beneeded to determine the cause. Other times, just allowing more time to pass will either make it clear what the problem is, or the pain will go away by itself. Home Care: You may use acetaminophen (Tylenol) or ibuprofen (Motrin, Advil) to control pain, unless another medicine was prescribed. [NOTE: If you have chronic liver or kidney disease or ever had a stomach ulcer or GI bleeding, talk with your doctor before using these medicines.] Follow Up with your doctor or as advised by our staff. Get Prompt Medical Attention if any of the following occur: Changes in the pattern of your pain Appearance of new symptoms Fever of 100.4 F (38 C) or higher, or as directed by your healthcare provider [phone] [employer] [address] [place] [address], [place] [address]. All rights reserved. This information is not intended as a substitute for professional medical care. Always follow yourhealthcare professional's instructions. Possible Causes of Low Back or Leg Pain BIG: The symptoms in your back or leg may be due to pressure on a nerve. This pressure may be caused by a damaged disk or by abnormal bone growth. Either way, you may feel pain, burning, tingling, ornumbness. If you have pressure on a nerve that connects to the sciatic nerve, pain may shoot down your leg. Pressure from the disk Constant wear and tear can weaken a disk over time and cause back pain. The disk can then be damaged by a sudden movement or injury. If its soft center starts to bulge, the disk may press on a nerve.Or the outside of the disk may tear, and the soft center may squeeze through and pinch a nerve. Pressure from bone As a disk wears out, the vertebrae right above and below the disk start to touch. This can put pressure on a nerve. Often, abnormal bone (called bone spurs) grows where the vertebrae rub against eachother. This can cause the foramen or the spinal canal to narrow (called stenosis) and press againsta nerve. [phone] [employer] [address] [place] [address]. All rights reserved. This information is not intended as a substitute for professional medical care. Always follow yourhealthcare professional's instructions. Additional Information VACCINATE! IT SAVES LIVES! Members of the community who have not yet received the COVID-19 vaccine and would like to receive it can visit one of [facility] vaccine clinics. There are many vaccine clinic locations within the [facility]. For locations and available times, please visit [email or web address]. It is important to note that some COVID mobile vaccine clinics are held outdoors and may be canceled in rainy orstormy conditions. To learn more about pediatric vaccinations (ages 5-11), we invite you to visit the [facility] webpage. [email or web address] learn more about the COVID-19 vaccine, we invite you to visit the [facility] website for a list of frequently asked questions. https://[place].[facility]/assets/[email or web address]-[email or web address]/twwac-[email or web address] _Asked-Questions.pdf [facility] Patient Portal Access Instructions: Stay connected with your healthcare team and access your personal medical information anytime with the [facility] Patient Portal. If you would like a full copy of your medical records please contact the [facility] Medical Records Department Friday through Friday between 8a.m. and 4:30p.m. Please follow the directions below to access the portal: 1.Access the email account you provided upon registration to the [facility].2.Look for an invitation email from [facility].3.Open the email and access the invitation link: Accept Invitation to web care [facility]4.Fill in the required ellis to create your account. Sign into [email or web address] with your username and password that you created in the above steps to stay up to date. You can then view a summary of results, a summary of your visits, and the ability to download your summaries to your computer or send the information securely to a physician. Remember that your healthcare information is confidential, so carefully consider who you will allow to register on the web care [facility] Patient Portal for access to your information. You can also access the web care [facility] Patient Portal on the [employer]. Simply click on Health Records under [employer] and then click on the [employer] logo. HOW TO SAFELY DISPOSE OF PRESCRIPTION MEDICATIONS Please use one of the following methods to safely dispose of your unused medications. 1.Use a drug disposal kit: the drug disposal pouch allows you to safely discard your old and unuseddrugs. Ask your nurse to give you one when you are discharged.2.Visit a local take-back location: Many local pharmacies and police departments have programs that collect old and unwanted prescriptiondrugs. Call your local pharmacy or go to [email or web address]/[email or web address] to find one close to you.3.Make use of household items: Use cat litter or old coffee grounds to dispose medications if other options arenot available. Mix your drugs with these household products, seal them in an airtight container andthrow it into the garbage. Call [facility]: [phone] to be sure your drugs can be disposed of in this way. Some medicines may require a different approach.4.Never flush your medications down the toilet. IF YOU HAVE BEEN PRESCRIBED AN OPIOIDS FOR PAIN If you have been prescribed an opioid (such as hydrocodone, oxycodone or morphine), it is critical to understand the possible side effects and risks of opioid pain medications. Even when taken as directed, opioids can have several side effects including: Tolerance, meaning you might need to take more of a medication for the same pain relief. Nausea, vomiting and/or constipation. Sleepiness, dizziness, dry mouth, confusion, depression or itching. Physical dependence, meaning you have withdrawal symptoms when a medication is stopped ? this can develop within a few days. KNOW YOUR RESPONSIBILITIES It is important to know exactly how much and how often to take the opioid pain medications you are prescribed. Never take opioids in higher amounts or more often than prescribed. Do not combine opioids with alcohol or other drugs that cause drowsiness, such as benzodiazepines, also known as benzos,including diazepam and alprazolam, muscle relaxants or sleep aids. Never sell or share prescriptionopioids. This is illegal. Store opioids in a secure place and out of reach of others (including children, family, friends and visitors). The last page(s) of this document has been signed and retained as a CHART COPY Signatures Patient Education Materials PAIN, Uncertain Cause (Acute) Possible Causes of Low Back or Leg Pain Medication Leaflets My discharge plan and instructions have been reviewed and explained to me and I,DONNA MCMAHON understand my current condition and have read and understand these discharge instructions. I have received a written copy of the plan/instructions. If I have questions, I am aware that I should contact my doctor. 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 Ying Piña APRN.CNP * Telephone Encounter - Hoda Preston RN - 05/03/2022 1:04 PM EDT Protocol recommends see provider in 24 hours. Pt scheduled with Ying Piña MISSILE AND MISSILE CHECKOUT TECHNICIAN today at 220 pm. Care plan reviewed with patient. Patient voices understanding. Advised patient that if symptoms get worse to be evaluated in Urgent Care or ER. Reason for Disposition More than 24 hours since medical visit SEVERE itching (i.e., interferes with sleep, normal activities or school) Answer Assessment - Initial Assessment Questions 1. MAIN CONCERN OR SYMPTOM: Main concern right now is rash spreading. 2. ONSET: Rash started at the end of last week, it was na allergic reaction to Deoderant, but that went away. 3. [id number]-[id number]-[id number]: Pt reports the rash is getting worse compared to how you felt at your last visit to the doctor on 04/30/22. 4. VISIT DATE: 04/30/22 5. VISIT DOCTOR: Ying Piña NP 6. VISIT DIAGNOSIS: Eczema vs. Contact dermatitis 7. VISIT MEDICATIONS:Yes ordered Zyrtec and Kenalog cream. Pt has been taking the. 8. NEXT APPOINTMENT: Did not schedule a f/u Appointment. Came in to on 04/30 for an ear infection. 9. PAIN: Denies 10. FEVER: Denies 11. OTHER SYMPTOMS: Pt reports itching and burning. Reports the rash is on inner wrist, both hands,inner elbows, up inner bicep towards shoulder, tops of feet, back of R knee, tops of thighs. Answer Assessment - Initial Assessment Questions 1. APPEARANCE of RASH: The rash is raised areas, bumps on fingers are white other patches are red, some have white bumps but doesn't think they have any pus in them. 2. SIZE: The spots are the size of the tip of a pen. 3. LOCATION: Located on tops of hands/feet/thigs, inside of wrists and elbows going up biceps to shoulders. 4. COLOR: The color of the rash is a pinkish color, some areas like on her hands are white. 5. ONSET: End of last week. 6. FEVER: Denies 7. ITCHING: Pt reports itching is a -05/08. 8. CAUSE: Pt does not know, has sensitive skin. End of last week had a reaction to a Deoderant, butthat cleared up. 9. MEDICATION FACTORS: Amoxicillin, started after the rash started increasing. Had taken Prednisonebut has since finished it. 10. OTHER SYMPTOMS: Pt reports these symptoms are normal for her on a daily basis dizziness, headache, sore throat, joint pain. 11. : Pt denies, last menstrual period was in February. Pt reports she isn't regular has to goto the Dr for a pill that makes her have a period. Protocols used: RECENT MEDICAL VISIT FOR ILLNESS FOLLOW-UP [id number], RASH OR REDNESS - [id number] documented in [facility] History of Present illness Narrative* Mani Gardner MD - 05/01/2022 3:08 PM EDT Patient presents with: Ear Pain: left ear pain and pressure x this am HPI: Feeling left ear pain and pressure since this morning. Positive symptoms: Earache, muffled hearing, Negative symptoms: Cough, Sore throat, Nasal Congestion, Rhinorrhea, Fever, otorrhea, dizziness, OTC: drops PAST MEDICAL HISTORY Diagnosis Date Mild intermittent asthma without complication PCOS (polycystic ovarian syndrome) MEDICATIONS: Current Outpatient Medications Medication Sig progesterone micronized (PROMETRIUM) 100 mg capsule Take 100 mg by mouth once daily. cetirizine (ZYRTEC) 10 mg tablet Take 1 tablet by mouth once daily. ondansetron orally disintegrating (ZOFRAN ODT) 4 mg disintegrating tablet Take 1 tablet by mouth every 8 hours as needed for nausea/vomiting. meclizine (ANTIVERT) 12.5 mg tab Take 1 tablet by mouth twice daily. blood sugar diagnostic (BLOOD GLUCOSE TEST) test strip Test blood sugar(s) one times daily. Dx: Type 2 DM - Controlled E11.9 Insulin: No Lancets lancets Test blood sugar(s) one times daily. Dx: Type 2 DM - Controlled E11.9 Insulin: No albuterol HFA (PROVENTIL HFA, VENTOLIN HFA) 90 mcg/actuation inhaler Inhale 2 Puffs as instructed every 4 hours as needed for Wheezing/Shortness of Breath or Cough. albuterol (PROVENTIL) 2.5 mg /3 mL (0.083 %) nebulizer solution Use via nebulizer every 4 hours as needed for Wheezing/Shortness of Breath. metroNIDAZOLE (FLAGYL) 500 mg tablet Take 500 mg by mouth twice daily. (Patient not taking: Reported on 05/01/2022 ) triamcinolone acetonide (KENALOG) 0.1 % cream Apply 1 application to affected area three times daily for 14 days. Apply sparingly to area for rash/itching. (Patient not taking: Reported on 05/01/2022 ) No current facility-administered medications for this visit. ALLERGIES: ALLERGIES Allergen Reactions Vancomycin Shortness of Breath VITALS: BP 150/102 Pulse 90 Temp 36.8 C (98.3 F) Resp 16 Wt 103.4 kg (228 lb) LMP 03/08/2022 SpO2 98% BMI 37.94 kg/m Last 4 Encounter BP Readings: Date: BP: 05/01/2022 150/102 04/30/2022 126/84 04/23/2022 128/76 04/19/2022 118/70 PHYSICAL EXAM: GEN: Pleasant, in no acute distress. HEENT: PERRL, EOMI, conjunctiva clear Ears: Right canal clear. Moist brown debris removed from the left canal with plastic cerumen hook. TMs with erythema, bulge, and purulent effusion Sinuses: non-tender frontal sinus, non-tender maxillary sinuses Throat: moist mucous membranes, no erythema, no exudate Neck: supple, no thyromegaly, no lymphadenopathy HEART: regular rate and rhythm, no murmurs LUNGS: clear to auscultation, no wheezes or crackles, no increased WOB ASSESSMENT/PLAN: 1. Non-recurrent acute suppurative otitis media of both ears without spontaneous rupture of tympanic membranes - ICD9: 382.00, ICD10: H66.003 (primary diagnosis) - Will begin treatment with - AMOXICILLIN 875 MG-POTASSIUM CLAVULANATE 125 MG TABLET 2. Elevated blood pressure reading without diagnosis of hypertension - ICD9: 796.2, ICD10: R03.0 No known Hx of BP elevations; BP was normal yesterday. Nurse BP check by next week. Mani Gardner MD documented in this encounterCommunity [facility] Miscellaneous Notes* Telephone Encounter - Marc Eubanks RN - 05/01/2022 9:36 AM EDT Patient returned call and given provider's message below with verbalized understanding. * Telephone Encounter - Amy Rendon LPN - 05/01/2022 8:17 AM EDT Patient telephoned. Message left to call back for update. Amy Rendon LPN * Telephone Encounter - Ying Piña APRN.CNP - 05/01/2022 8:12 AM EDT Please call patient and let her know her A1c is 5.8% this is in prediabetic range. Recommend she continue to eat lower carbohydrate diet and aim for at least 150 minutes of exercise per week. Recheckin 6 months ThanksYing APRN.CUCO documented in this encounterCommunity [facility]08-02-2022 History of Present illness Narrative* Ying Piña APRN.CUCO - 04/30/2022 11:25 AM EDT 04/30/2022 Patient presents with: Rash: has gotten worse since seen in SUBJECTIVE: This is a 21 year old that is here today for Above Complaints. Seen In Urgent Care on 04/23/2022 for rash to under arms. Used prescribed triamcinolone cream which helped. Reports rash improved, however she now has a itchy rash to her arms and legs. Recent Illness: no Any recent travel: no Contacts with same rashes: no Hx of eczema: no Hx of psoriasis: yes Recent Tanning: no Any new: Lotions: no Detergents: no Soaps: no Make up: no Clothing: no Bedding: no Medications: no PAST MEDICAL HISTORY Diagnosis Date Mild intermittent asthma without complication PCOS (polycystic ovarian syndrome) ALLERGIES Vancomycin MEDICATIONS Current Outpatient Medications Medication Sig metroNIDAZOLE (FLAGYL) 500 mg tablet Take 500 mg by mouth twice daily. progesterone micronized (PROMETRIUM) 100 mg capsule Take 100 mg by mouth once daily. triamcinolone acetonide (KENALOG) 0.1 % cream Apply 1 application to affected area three times daily for 14 days. Apply sparingly to area for rash/itching. cetirizine (ZYRTEC) 10 mg tablet Take 1 tablet by mouth once daily. ondansetron orally disintegrating (ZOFRAN ODT) 4 mg disintegrating tablet Take 1 tablet by mouth every 8 hours as needed for nausea/vomiting. meclizine (ANTIVERT) 12.5 mg tab Take 1 tablet by mouth twice daily. valACYclovir (VALTREX) 500 mg tablet Take 500 mg by mouth once daily. (Patient not taking: Reportedon 01/21/2022 ) metFORMIN ER (GLUCOPHAGE XR) 500 mg 24 hr tablet Take 1 tablet by mouth daily with breakfast. (Patient not taking: Reported on 01/21/2022 ) blood sugar diagnostic (BLOOD GLUCOSE TEST) test strip Test blood sugar(s) one times daily. Dx: Type 2 DM - Controlled E11.9 Insulin: No Lancets lancets Test blood sugar(s) one times daily. Dx: Type 2 DM - Controlled E11.9 Insulin: No albuterol HFA (PROVENTIL HFA, VENTOLIN HFA) 90 mcg/actuation inhaler Inhale 2 Puffs as instructed every 4 hours as needed for Wheezing/Shortness of Breath or Cough. albuterol (PROVENTIL) 2.5 mg /3 mL (0.083 %) nebulizer solution Use via nebulizer every 4 hours as needed for Wheezing/Shortness of Breath. No current facility-administered medications for this visit. Medications and allergies reviewed by this provider. SOCIAL HISTORY Social History Tobacco Use Smoking status: Never Smoker Smokeless tobacco: Never Used Vaping Use Vaping Use: Never used Substance Use Topics Alcohol use: Not Currently Drug use: Never REVIEW OF SYSTEMS All other reviewed and negative other than HPI. OBJECTIVE: BP 126/84 Pulse 77 Temp 36.6 C (97.9 F) Resp 18 Wt 102.4 kg (225 lb 12.8 oz) LMP 03/08/2022 SpO2 96% BMI 37.58 kg/m . Vital signs reviewed by this provider. APPEARANCE Well appearing, alert, in no acute distress, well-hydrated, well nourished. SKIN: hypertrophic skin to bilateral underarms without rash or erythema. Small group of papules to left arm flexural area without surrounding erythema, excessive warmth or drainage to the rest of herexposed skin PNEUMOCOCCAL(1 - PCV) Never done DILATED RETINAL EXAM Never done HEPATITIS B(1 of 3 - Risk 3-dose series) Never done DTAP,TDAP,TD(1 - Tdap) due on 07/24/2022 HPV VACCINE(1 - 2-dose series) due on 07/24/2022 COVID-19 VACCINE(1) due on 07/24/2022 INFLUENZA(1) due on 05/30/2022 HBA1C due on 07/23/2022 LDL CHOLESTEROL due on 07/24/2022 DEPRESSION SCREENING due on 07/24/2022 URINE ALBUMIN:CREATININE RATIO due on 10/23/2022 DIABETIC FOOT EXAM due on 10/23/2022 GC (GONORRHEA) SCREENING (18-24) due on 11/23/2022 CHLAMYDIA SCREENING (18-24) due on 11/23/2022 ANNUAL PCP TEAM CHRONIC DISEASE VISIT due on 01/21/2023 HEPATITIS C SCREENING Completed HIV SCREENING Completed MENINGOCOCCAL B: Consider based on risk Discontinued ASSESSMENT/PLAN: 1. Skin eruption - ICD9: 782.1, ICD10: R21 - consider eczema vs contact dermatitis - recommend she use the triamcinolone 2-3 times a day to area. May use cool compresses and calaminelotion for itching. Also discussed can take benadryl over the counter as directed on packaging for persistent itching. Discussed benadryl can cause drowsiness so she should not drive or operate heavyAdchemyy while taking, verbalizes understanding - follow-up if symptoms fail to improve Ying Piña APRN.CNP Prescription instructions reviewed with patient as applicable. Patient advised if symptoms do not improve or if symptoms worsen sooner, to contact their primary care physician. Potential red flag symptoms discussed with the patient. Reviewed appropriate action plan to take if red flag symptoms occur. Patient agreeable to treatment plan. I spent a total of 20 minutes on the date of the service which included preparing to see the patient, [id number] patient care, completing clinical documentation, obtaining and/or reviewing separately obtained history, performing a medically appropriate examination and counseling and educating the patient/family/caregiver. documented in this encounterCommunity [facility]07-26-2022 History of Present illness Narrative* Traci Barker APRN.CNP - 04/23/2022 12:52 PM EDT Images from the original note were not included. Subjective The history is provided by the patient. No teller vault was used. HPI Donna Mcmahon is a 21 year old female who presents today for CC of rash - itchy/burning in arm pits. She used a new gel deodarant and 24-48 hours this occurred. She denies any blistering. BP 128/76 Pulse 66 Temp 36.3 C (97.4 F) Resp 16 Wt 103.6 kg (228 lb 6.4 oz) LMP 03/08/2022 SpO2 97% BMI 38.01 kg/m Social History Tobacco Use Smoking status: Never Smoker Smokeless tobacco: Never Used Vaping Use Vaping Use: Never used Substance Use Topics Alcohol use: Not Currently Drug use: Never PAST MEDICAL HISTORY Diagnosis Date Mild intermittent asthma without complication PCOS (polycystic ovarian syndrome) I have confirmed and edited as necessary, the [facility] Review of Systems Constitutional: Negative for chills and fever. Musculoskeletal: Negative for joint pain and myalgias. Skin: Positive for itching and rash. All other systems reviewed and are negative. Objective Physical Exam Vitals and nursing note reviewed. Cardiovascular: Rate and Rhythm: Normal rate and regular rhythm. Heart sounds: Normal heart sounds. Pulmonary: Effort: Pulmonary effort is normal. Breath sounds: Normal breath sounds. Skin: General: Skin is warm and dry. Findings: Erythema present. Neurological: Mental Status: She is alert and oriented to person, place, and time. Psychiatric: Mood and Affect: Affect normal. ASSESSMENT/PLAN: 1. Rash - ICD9: 782.1, ICD10: R21 Appears to be contact dermatitis Zyrtec 10 mg By mouth daily at bedtime Triamcinolone cream for itching DC irritant/deodarant Follow up with dermatology if no improvement. Diagnosis and treatment plan were discussed and questions were answered to the patient's satisfaction. Pt acknowledged understanding of concepts and follow up plan. Specific signs and symptoms that would indicate the need for higher level of care were discussed indetail warranting prompt ER evaluation. Traci Barker APRN.CUCO documented in this encounterCommunity [facility]07-26-2022 Instructions* Patient Instructions* Traci Barker APRN.CUCO - 04/23/2022 12:49 PM EDT Use cream as discussed Zyrtec 10 mg By mouth daily at bedtime If no improvement follow up with PCP as needed documented in this encounterCommunity [facility] Hospital07-22-2022 History of Present illness Narrative* Darrel Greenfield APRN.CUCO - 04/19/2022 4:20 PM EDT Subjective Patient came in with complaints of red eyes, itchy mouth, itchy nose, and scratchy throat. Said sheis very sensitive to things like soaps and tries to be real careful. Said this has happened to her lips before. Denies any other symptoms such as tight throat, difficulty breathing, shortness of breath. Has not done anything new including new medication, foods, pets, clothes, soaps, or lotions. Said this started early this morning and has not gotten any worse it has stayed the same. The history is provided by the patient. No teller vault was used. Eye Problem Mouth/Lip Problem Review of Systems Constitutional: Negative. Skin: Negative. Objective Physical Exam Constitutional: Appearance: Normal appearance. HENT: Mouth/Throat: Lips: [place]. Mouth: Mucous membranes are moist. Tongue: No lesions. Palate: No mass and lesions. Pharynx: Oropharynx is clear. Tonsils: No tonsillar exudate or tonsillar abscesses. Cardiovascular: Rate and Rhythm: Normal rate and regular rhythm. Heart sounds: Normal heart sounds. Pulmonary: Effort: Pulmonary effort is normal. Breath sounds: Normal breath sounds. Neurological: Mental Status: She is alert. PAST MEDICAL HISTORY Diagnosis Date Mild intermittent asthma without complication PCOS (polycystic ovarian syndrome) PAST SURGICAL HISTORY Procedure Laterality Date STRABISMUS SURG PT W SCAR EO MUSCL ALLERGIES Vancomycin MEDICATIONS ondansetron orally disintegrating (ZOFRAN ODT) 4 mg disintegrating tablet Take 1 tablet by mouth every 8 hours as needed for nausea/vomiting. meclizine (ANTIVERT) 12.5 mg tab Take 1 tablet by mouth twice daily. blood sugar diagnostic (BLOOD GLUCOSE TEST) test strip Test blood sugar(s) one times daily. Dx: Type 2 DM - Controlled E11.9 Insulin: No Lancets lancets Test blood sugar(s) one times daily. Dx: Type 2 DM - Controlled E11.9 Insulin: No albuterol HFA (PROVENTIL HFA, VENTOLIN HFA) 90 mcg/actuation inhaler Inhale 2 Puffs as instructed every 4 hours as needed for Wheezing/Shortness of Breath or Cough. albuterol (PROVENTIL) 2.5 mg /3 mL (0.083 %) nebulizer solution Use via nebulizer every 4 hours as needed for Wheezing/Shortness of Breath. predniSONE (DELTASONE) 10 mg tablet Take 4 tabs daily for 3 days, then 2 tabs daily for 3 days, then 1 tab daily for 3 days with food. valACYclovir (VALTREX) 500 mg tablet Take 500 mg by mouth once daily. metFORMIN ER (GLUCOPHAGE XR) 500 mg 24 hr tablet Take 1 tablet by mouth daily with breakfast. FAMILY HISTORY Problem Relation Age of Onset Hypertension Father Social History Tobacco Use Smoking status: Never Smoker Smokeless tobacco: Never Used Vaping Use Vaping Use: Never used Substance Use Topics Alcohol use: Not Currently Drug use: Never ASSESSMENT/PLAN: 1. Itching - ICD9: 698.9, ICD10: L29.9 At this time patient was prescribed a 9 day prednisone taper. Educated about proper use of medication and supportive therapy. Educated very specifically what to watch for such as shortness of breath,tightness in throat, heavy chest feeling. Patient was aggreable to this. Patient was also questionsa positive herpes result she received back in october. So I did go over this with patient. Patientsaid her COMMERCIAL MARKETING SPECIALIST told her she did not have herpes. Patient was educated. She will follow up if symptoms worsen or do not get better with the ER. Darrel Greenfield APRN.CUCO documented in this encounterCommunity [facility]06-28-2022 Miscellaneous Notes* Telephone Encounter - Nava Lopez RN - 03/26/2022 11:32 PM EDT Reason for call: Patient calling with request for health information regarding yeast infections anddiabetes: reviewed information from [employer] . Patient denies any new or worsening symptoms of which kimder is not aware: Yes. Patient continues to have symptom of yeast infection that she has been treated for by her RAIL CREW MEMBER at [facility]. She has had three doses of medication for yeast infectionwithout relief of symptoms. Patient is concerned that she will develop a UTI. Patient states it diamond when she has recently urinated and attributes this to the yeast infection. 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 GO TO THE EMERGENCY ROOM OR CALL 911 IF: * You develop any new symptoms * Your condition worsens * You are concerned or anxious about your condition for any other reason. If you have any questions, you can call Nurse coal or ore controller back. documented in this encounterCommunity [facility] Hospital04-27-2022 Miscellaneous Notes* Telephone Encounter - Austin Sales Ma - 01/23/2022 4:09 PM EDT Patient notified via [employer]. * Telephone Encounter - Hoad Preston RN - 01/22/2022 3:49 PM EDT Pt did not have a voicemail set up and Pts mother is not accepting calls at this time. Hoda Preston RN * Telephone Encounter - Ying Piña APRN.CNP - 01/22/2022 3:26 PM EDT Please call patient and let her know her blood work shows a lower blood sugar and mild elevation inone liver enzyme, otherwise normal. I recommend she eat with three meals a day with a snack in between or six small meals. She said she has not been taking the metformin routinely so she can stop it for know and we can recheck he A1c in 3 months. Thanks, Ying Piña APRN.DIVEMASTER documented in this encounterCommunity [facility] Hospital04-25-2022 History of Present illness Narrative* Ying Piña APRN.CUCO - 01/21/2022 1:25 PM EDT 01/21/2022 Patient presents with: Headache: x1 month; lightheaded & nausea/vomiting SUBJECTIVE: This is a 21 year old that is here today for Above Complaints. About a month ago with started with intermittent headache, lightheadedness/dizziness, nausea and vomiting. Headaches located over her whole head and described as feeling heavy. Usually improved with rest. At times she gets nauseated with it. Lightheadedness is intermittent and lasts a few seconds as well and its like things are spinning and she feels like she is watching herself. Has accompanying nausea at times. Admits the lightheadedness can be brought on when changes position quickly. The last few days has had some intermittent vomiting. She though maybe he symptoms were caused by addition of valtrex so she stopped this for a week but symptoms persists. Has not been taking her metformin. Admits she does not eat regular meals. Sometimes goes 8-10 hours as work without eating. Denies worst headache of her life, visual changes, extremity numbness, tingling, weakness, confusion, facialdrooping, slurred speech, syncope, SOB, dyspnea, chest pain, palpitations, abdominal pain, melana, hematochezia or diarrhea BP w/Orthostatic Vitals Date and Time Orthostatic BP Orthostatic Pulse BP Pulse BP Position BP Site BP Cuff Size 01/21/22 1344 -- -- 129/85 94 -- -- -- 01/21/22 1343 -- -- 135/83 80 -- -- -- 01/21/22 1342 -- -- 138/85 81 -- -- -- 01/21/22 1323 -- -- -- 88 -- -- -- 01/21/22 1323 -- -- 135/85 -- -- -- -- Peak Flow Date and Time PF Resp 01/21/22 1323 -- 18 PAST MEDICAL HISTORY Diagnosis Date Mild intermittent asthma without complication PCOS (polycystic ovarian syndrome) ALLERGIES Vancomycin MEDICATIONS Current Outpatient Medications Medication Sig blood sugar diagnostic (BLOOD GLUCOSE TEST) test strip Test blood sugar(s) one times daily. Dx: Type 2 DM - Controlled E11.9 Insulin: No Lancets lancets Test blood sugar(s) one times daily. Dx: Type 2 DM - Controlled E11.9 Insulin: No albuterol HFA (PROVENTIL HFA, VENTOLIN HFA) 90 mcg/actuation inhaler Inhale 2 Puffs as instructed every 4 hours as needed for Wheezing/Shortness of Breath or Cough. valACYclovir (VALTREX) 500 mg tablet Take 500 mg by mouth once daily. (Patient not taking: Reportedon 01/21/2022 ) metFORMIN ER (GLUCOPHAGE XR) 500 mg 24 hr tablet Take 1 tablet by mouth daily with breakfast. (Patient not taking: Reported on 01/21/2022 ) albuterol (PROVENTIL) 2.5 mg /3 mL (0.083 %) nebulizer solution Use via nebulizer every 4 hours as needed for Wheezing/Shortness of Breath. No current facility-administered medications for this visit. Medications and allergies reviewed by this provider. SOCIAL HISTORY Social History Tobacco Use Smoking status: Never Smoker Smokeless tobacco: Never Used Vaping Use Vaping Use: Never used Substance Use Topics Alcohol use: Not Currently Drug use: Never REVIEW OF SYSTEMS All other reviewed and negative other than HPI. OBJECTIVE: BP 135/85 Pulse 88 Temp 36.8 C (98.2 F) Resp 18 Wt 104.4 kg (230 lb 3.2 oz) LMP 11/21/2021 (Approximate) SpO2 96% BMI 38.31 kg/m . Vital signs reviewed by this provider. APPEARANCE Well appearing, alert, in no acute distress, well-hydrated, well nourished. EYES PERRLA, conjunctiva and sclera normal. HEART RRR with normal S1 and S2, no murmurs, no gallops, no JVD appreciated LUNG clear to auscultation. No wheezes, rhonchi, or rales ABDOMEN bowel sounds normoactive, no bruits, soft, non-tender, non-distended SKIN Skin color, texture, turgor normal, no suspicious rashes or lesions to exposed skin Neuro: Awake, alert and oriented x 3, Cranial nerves II-XII grossly intact, Reflexes symmetrical, Normal gait, No involuntary motions. and negative findings: speech normal, Romberg negative, muscle tone normal, muscle strength normal, rapid alternating movements normal, finger to nose normal, reflexes normal and symmetric, plantar response downgoing bilaterally Negative Jose-Hallpike DILATED RETINAL EXAM Never done ONE PNEUMOVAX PRIOR TO AGE 65 Never done DTAP,TDAP,TD(1 - Tdap) due on 07/24/2022 HPV VACCINE(1 - 2-dose series) due on 07/24/2022 COVID-19 VACCINE(1) due on 07/24/2022 HBA1C due on 04/22/2022 INFLUENZA(Season Ended) due on 05/30/2022 LDL CHOLESTEROL due on 07/24/2022 DEPRESSION SCREENING due on 07/24/2022 URINE ALBUMIN:CREATININE RATIO due on 10/23/2022 DIABETIC FOOT EXAM due on 10/23/2022 GC (GONORRHEA) SCREENING (18-24) due on 11/23/2022 CHLAMYDIA SCREENING (18-24) due on 11/23/2022 ANNUAL PCP TEAM CHRONIC DISEASE VISIT due on 01/21/2023 HEPATITIS C SCREENING Completed HIV SCREENING Completed MENINGOCOCCAL CONJUGATE Aged Out MENINGOCOCCAL B: Consider based on risk Discontinued ASSESSMENT/PLAN: 1. Dizziness - ICD9: 780.4, ICD10: R42 (primary diagnosis) - no red flag symptoms or exam findings - red flag symptoms discussed, verbalizes understanding - HGB A1C - COMP METABOLIC PANEL - CBC - MECLIZINE 12.5 MG TABLET- take twice daily for the next week to see if this helps - discussed the importance of eating regular meals and staying hydrated, verbalizes understanding - follow-up pending blood work, to ER with red flag symptoms 2. Headache, unspecified headache type - ICD9: 784.0, ICD10: R51.9 - no red flag symptoms or exam findings - red flag symptoms discussed, verbalizes understanding - may use OTC NSAID product or tylenol- should take NSAID product with food - potentially related to valtrex, however she stopped seven days and reports still having these - follow-up if persists to ER with red flag symptoms 3. Nausea and vomiting, unspecified vomiting type - ICD9: 787.01, ICD10: R11.2 - discussed BRAT diet until nausea and vomiting reside - ONDANSETRON 4 MG DISINTEGRATING TABLET - no red flag symptoms or exam finding - red flag symptoms discussed - follow-up if symptoms persist to ER with red flag symptoms Ying Podlogar, DOCK ATTENDANT.CUCO Prescription instructions reviewed with patient as applicable. Patient advised if symptoms do not improve or if symptoms worsen sooner, to contact their primary care physician. Potential red flag symptoms discussed with the patient. Reviewed appropriate action plan to take if red flag symptoms occur. Patient agreeable to treatment plan. documented in this encounterCommunity [facility] Hospital04-14-2022 History of Present illness Narrative* Demario Garcia MD - 01/10/2022 3:52 PM EDT Chief Complaint Patient presents with: Nose Problem: bump inside right nare HPI Donna Mcmahon is a 21 year old female who presents here today for Above Complaints.. Patient states that she has had some burning in her nose for the last few weeks. Checked inside right nares and noticed a bump. Touched it with a q tip and did burn. Did not have any drainage from this site. Has not been treating with anything OTC. Denies rhinorrhea, nasal congestion, epistaxis. Patient also notes that her mother told her in the last couple months she snores loudly and stops breathing in her sleep. Admits to daytime somnolence as well. Past medical history, appointments, medications, allergies reviewed. Previous Medical History PAST MEDICAL HISTORY Diagnosis Date Mild intermittent asthma without complication PCOS (polycystic ovarian syndrome) Previous Surgical History PAST SURGICAL HISTORY Procedure Laterality Date STRABISMUS SURG PT W SCAR EO MUSCL Family History FAMILY HISTORY Problem Relation Age of Onset Hypertension Father Patient Allergies ALLERGIES Allergen Reactions Vancomycin Shortness of Breath Current Medications Current Outpatient Medications on File Prior to Visit Medication Sig valACYclovir (VALTREX) 500 mg tablet Take 500 mg by mouth once daily. metFORMIN ER (GLUCOPHAGE XR) 500 mg 24 hr tablet Take 1 tablet by mouth daily with breakfast. blood sugar diagnostic (BLOOD GLUCOSE TEST) test strip Test blood sugar(s) one times daily. Dx: Type 2 DM - Controlled E11.9 Insulin: No Lancets lancets Test blood sugar(s) one times daily. Dx: Type 2 DM - Controlled E11.9 Insulin: No albuterol HFA (PROVENTIL HFA, VENTOLIN HFA) 90 mcg/actuation inhaler Inhale 2 Puffs as instructed every 4 hours as needed for Wheezing/Shortness of Breath or Cough. albuterol (PROVENTIL) 2.5 mg /3 mL (0.083 %) nebulizer solution Use via nebulizer every 4 hours as needed for Wheezing/Shortness of Breath. meloxicam (MOBIC) 15 mg tablet Take 15 mg by mouth once daily. (Patient not taking: Reported on 01/10/2022 ) tiZANidine HCl 4 mg capsule Take 4 mg by mouth. One before bed time (Patient not taking: Reported on 01/10/2022 ) No current facility-administered medications on file prior to visit. Social History Social History Tobacco Use Smoking status: Never Smoker Smokeless tobacco: Never Used Vaping Use Vaping Use: Never used Substance Use Topics Alcohol use: Not Currently Drug use: Never Review of Symptoms REVIEW OF SYSTEMS See HPI EXAM: BP 118/66 Pulse 96 Resp 16 Wt 106.5 kg (234 lb 12.8 oz) LMP 11/21/2021 (Approximate) [id number]% BMI 39.07 kg/m General Appearance: Well appearing, alert, in no acute distress, well-hydrated, well nourished.. Skin: Skin color, texture, turgor normal, no suspicious rashes or lesions. Nose/Sinuses: Negative findings: septum midline with no perforation or bleeding, Positive findings:hypertrophy of turbinates on right compared to left. Health Maintenance List DILATED RETINAL EXAM Never done ONE PNEUMOVAX PRIOR TO AGE 65 Never done DTAP,TDAP,TD(1 - Tdap) due on 07/24/2022 HPV VACCINE(1 - 2-dose series) due on 07/24/2022 COVID-19 VACCINE(1) due on 07/24/2022 HBA1C due on 04/22/2022 INFLUENZA(Season Ended) due on 05/30/2022 LDL CHOLESTEROL due on 07/24/2022 DEPRESSION SCREENING due on 07/24/2022 URINE ALBUMIN:CREATININE RATIO due on 10/23/2022 DIABETIC FOOT EXAM due on 10/23/2022 ANNUAL PCP TEAM CHRONIC DISEASE VISIT due on 10/23/2022 GC (GONORRHEA) SCREENING (18-24) due on 11/23/2022 CHLAMYDIA SCREENING (18-24) due on 11/23/2022 HEPATITIS C SCREENING Completed HIV SCREENING Completed MENINGOCOCCAL CONJUGATE Aged Out MENINGOCOCCAL B: Consider based on risk Discontinued ASSESSMENT/PLAN: 1. Nasal turbinate hypertrophy - ICD9: 478.0, ICD10: J34.3 (primary diagnosis) Benign etiology. Without allergy symptoms or nasal congestion, would monitor at this time. 2. Daytime somnolence - ICD9: 780.54, ICD10: R40.0 Will check HSAT to confirm sleep apnea. If positive, will start on autopap and work on weight loss. - HOME SLEEP APNEA TEST (HSAT) Demario Garcia MD [facility] Discharge instructions Patient Education 11/26/2021 20:14:29 Herpes Herpes If you have herpes, you re not alone. Millions of Americans have it. Herpes has no cure. But you can control it and learn how to protect yourself and others from outbreaks. What is herpes? Herpes is a chronic (lifelong) virus. It can cause sores and discomfort. You get it from contact with someone who carries the virus. If sores occur on the lips, you have oral herpes. If sores occur on the penis or around the vagina, you have genital herpes. Herpes outbreaks The first outbreak of herpes sores is usually the most severe. Then, the soldiers of the body s immune system, white blood cells, produce antibodies. These antibodies help neutralize the herpes virusand may help make future attacks less severe. Some people have only one outbreak of sores. Some people have periods of frequent outbreaks (every few weeks). Outbreaks of herpes sores usually happen less often over time. Herpes sores may appear without a cause. Outbreaks are more likely when the immune system is weak. Other viral infections (such as a cold) can cause outbreaks. Stress from a poor diet, fatigue, or emotional upset can lead to outbreaks of sores. Exposure to strong sunlight often causes herpes sores to reappear. To help prevent outbreaks To prevent oral herpes outbreaks, avoid overexposure to wind, sun, and extreme temperatures. Use sunscreen and lip balm on affected areas. If you are having frequent outbreaks, ask your healthcare provider about medicines that can help prevent outbreaks. How herpes spreads to others Herpes can be spread during an outbreak. But even without sores present, you can still shed the virus and infect others. You can take steps to prevent this. To protect yourself and others If you have an oral sore, avoid kissing and oral-genital contact. If you have a genital sore, avoid intercourse. Also avoid oral-genital contact. Wash your hands after touching a sore. Use a condom each time you have sex. You can pass the virus even when sores aren t present. If you re unsure about the timing of certain kinds of physical contact, ask your health care provider. Tell any new partners that you have herpes. If you re a woman, have Pap tests as often as your healthcare provider recommends. A woman can spread herpes to their during the process, whether or not they have an active genital sore. If , don't forget to tell your healthcare provider early in the . In some cases, daily antiviral medicine (acyclovir, famcyclovir, or valavyclovir), in addition to consistent condom use, may reduce your chances of spreading herpes to an uninfected partner. Ask yourhealthcare provider if this medicine would be helpful for you. Resources [employer] STD Hotline 802-069-5837 www.ashastd.org Centers for Disease Control and Prevention 802-694-7060 www.cdc.gov/std 9989-3877 [employer] [address] [place] [address]. All rights reserved. This information is not intended as a substitute for professional medical care. Always follow yourhealthcare professional's instructions. 11/26/2021 20:13:50 Bladder Infection, Female (Adult) Bladder Infection, Female (Adult) Urine is normally doesn't have any bacteria in it. But bacteria can get into the urinary tract fromthe skin around the rectum. Or they can travel in the blood from elsewhere in the body. Once they are in your urinary tract, they can cause infection in the urethra (urethritis), the bladder (cystitis), or the kidneys (pyelonephritis). The most common place for an infection is in the bladder. This is called a bladder infection. This is one of the most common infections in women. Most bladder infections are easily treated. They are not serious unless the infection spreads to the kidney. The phrases bladder infection, UTI, and cystitis are often used to describe the same thing. But they are not always the same. Cystitis is an inflammation of the bladder. The most common cause of cystitis is an infection. Symptoms The infection causes inflammation in the urethra and bladder. This causes many of the symptoms. Themost common symptoms of a bladder infection are: Pain or burning when urinating Having to urinate more often than usual Urgent need to urinate Only a small amount of urine comes out Blood in urine Abdominal discomfort. This is usually in the lower abdomen above the pubic bone. Cloudy urine Strong- or bad-smelling urine Unable to urinate (urinary retention) Unable to hold urine in (urinary incontinence) Fever Loss of appetite Confusion (in older adults) Causes Bladder infections are not contagious. You can't get one from someone else, from a toilet seat, or from sharing a bath. The most common cause of bladder infections is bacteria from the bowels. The bacteria get onto the skin around the opening of the urethra. From there, they can get into the urine and travel up to thebladder, causing inflammation and infection. This usually happens because of: Wiping improperly after urinating. Always wipe from front to back. Bowel incontinence Procedures such as having a catheter inserted Older age Not emptying your bladder. This can allow bacteria a chance to grow in your urine. Dehydration Constipation Sex Use of a diaphragm for control Treatment Bladder infections are diagnosed by a urine test. They are treated with antibiotics and usually clear up quickly without complications. Treatment helps prevent a more serious kidney infection. Medicines Medicines can help in the treatment of a bladder infection: Take antibiotics until they are used up, even if you feel better. It is important to finish them tomake sure the infection has cleared. You can use acetaminophen or ibuprofen for pain, fever, or discomfort, unless another medicine was prescribed. If you have chronic liver or kidney disease, talk with your healthcare provider before using these medicines. Also talk with your provider if you've ever had a stomach ulcer or gastrointestinal bleeding, or are taking blood-thinner medicines. If you are given phenazopydridine to reduce burning with urination, it will cause your urine to become a bright orange color. This can stain clothing. Care and prevention These self-care steps can help prevent future infections: Drink plenty of fluids to prevent dehydration and flush out your bladder. Do this unless you must restrict fluids for other health reasons, or your doctor told you not to. Proper cleaning after going to the bathroom is important. Wipe from front to back after using the toilet to prevent the spread of bacteria. Urinate more often. Don't try to hold urine in for a long time. Wear loose-fitting clothes and cotton underwear. Avoid tight-fitting pants. Improve your diet and prevent constipation. Eat more fresh fruit and vegetables, and fiber, and less junk and fatty foods. Avoid sex until your symptoms are gone. Avoid caffeine, alcohol, and spicy foods. These can irritate your bladder. Urinate right after intercourse to flush out your bladder. If you use control pills and have frequent bladder infections, discuss it with your doctor. Follow-up care Call your healthcare provider if all symptoms are not gone after 3 days of treatment. This is especially important if you have repeat infections. If a culture was done, you will be told if your treatment needs to be changed. If directed, you cancall to find out the results. If X-rays were done, you will be told if the results will affect your treatment. Call 911 Call 911 if any of the following occur: Trouble breathing Hard to wake up or confusion Fainting or loss of consciousness Rapid heart rate When to seek medical advice Call your healthcare provider right away if any of these occur: Fever of 100.4 F (38.0 C) or higher, or as directed by your healthcare provider Symptoms are not better by the third day of treatment Back or belly (abdominal) pain that gets worse Repeated vomiting, or unable to keep medicine down Weakness or dizziness Vaginal discharge Pain, redness, or swelling in the outer vaginal area (labia) [id number] [employer] [address] [place] [address]. All rights reserved. This information is not intended as a substitute for professional medical care. Always follow yourhealthcare professional's instructions. Follow Up Care 11/26/2021 18:44:37 With:Call Physician Referral Address:Unknown When:2-4 days [facility] 02-27-2022 Hospital Discharge instructions Patient Education 11/25/2021 14:58:29 Herpes Genitalis, Hsv: Type Ii Genital Herpes Genital herpes is a common sexually transmitted infection (STI). It is caused by the herpes simplexvirus (HSV). One out of 5 teens and adults carry the herpes virus. During an outbreak, it causes small blisters that break open, leaving small, painful sores in the genital area. Eventually, scabs form and the sores heal. In women, these show up most often on the skin just outside the vaginal opening. They can occur on the buttocks, anus, or cervix. In men, the sores are usually on the tip, sides, or base of the penis. They also occur on the scrotum, buttocks, or thighs. The first outbreak begins within 2 to 3 weeks after exposure to an infected sexual partner. It may last 1 to 3 weeks. It may cause headache, muscle ache, and fevers. The first outbreak is usually theworst. Because the virus remains in the body even after the sores heal, most people will have more outbreaks. The frequency of outbreaks is different for each person. Some people will never have another outbreak. Others will have several episodes a year. Later outbreaks are usually shorter, milder,and less painful. For many, the number of outbreaks tends to decrease over time. Various factors may trigger an outbreak. These include: Emotional stress Menstruation Presence of another illness (cold, flu, or fever from any cause) Overexertion and fatigue Weak immune system Home care It is very important that you do not have sexual relations until all the herpes sores have healed completely. Wash the affected area gently with mild soap and water. Wash your hands after touching the affectedarea. You may use cjnf-kau-frsjgon pain medicine unless another pain medicine was prescribed. If you havechronic liver or kidney disease or have ever had a stomach ulcer or gastrointestinal bleeding, talkwith your healthcare provider before using these medicines. Also talk to your provider if you are taking medicine to prevent blood clots. Aspirin should never be given to anyone younger than 18 yearsof age who is ill with a viral infection or fever. It may cause severe liver or brain damage. Your healthcare provider may prescribe antiviral medicine during the first outbreak. This will helpthe sores heal faster. Antiviral medicine may also be prescribed so that you have it ready to take at the first sign of another outbreak. This will help the symptoms go away sooner. For people with frequent outbreaks, daily preventive therapy may be prescribed. This will help reduce the frequency of attacks. Daily preventive therapy may also reduce risk of spread of herpes to your sexual partner.Discuss the risks and benefits of daily therapy with your healthcare provider. If you are a woman who is now or may become in the future, let your healthcare provider know that you have had herpes. This may affect the way your baby is delivered. Preventing spread to others The virus is spread by sexual contact with someone who has the herpes virus. The risk of spread is highest when the sores are present. However, there is a chance of spreading the virus even when sores are not visible. Inform future sexual partners that you have herpes and that they may become infected. To reduce the risk of passing the virus to a partner who has never had herpes, avoid sexual relations at the first sign of an outbreak and until the sores are fully healed. Latex barriers, such as condoms, reduce the risk of spread between outbreaks if the infected site is covered, but they do not guarantee protection. Follow-up care Follow up with your healthcare provider, or as advised. People who have just learned that they have herpes may feel upset. Getting the facts about herpes can help you feel more in control. Follow up with your healthcare provider or the public health department for complete STI screening, including HIV testing. When to seek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 Abuse Patient Records regulations: The Federal rules restrict any use of the information to criminally investigate or prosecute any alcohol or drug abuse patient.[facility] HospitalIn the event this information is protected by the Federal Confidentiality of Alcohol and Drug Abuse Patient Records regulations: The Federal rules restrict any use of the information to criminally investigate or prosecute any alcohol or drug abuse patient.[facility] HospitalIn the event this information is protected by the Federal Confidentiality of Alcohol and Drug Abuse Patient Records regulations: The Federal rules restrict any use of the information to criminally investigate or prosecute any alcohol or drug abuse patient.[facility] HospitalIn the event this information is protected by the Federal Confidentiality of Alcohol and Drug Abuse Patient Records regulations: The Federal rules restrict any use of the information to criminally investigate or prosecute any alcohol or drug abuse patient.[facility] HospitalIn the event this information is protected by the Federal Confidentiality of Alcohol and Drug Abuse Patient Records regulations: The Federal rules restrict any use of the information to criminally investigate or prosecute any alcohol or drug abuse patient.[facility] HospitalIn the event this information is protected by the Federal Confidentiality of Alcohol and Drug Abuse Patient Records regulations: The Federal rules restrict any use of the information to criminally investigate or prosecute any alcohol or drug abuse patient.[facility] HospitalIn the event this information is protected by the Federal Confidentiality of Alcohol and Drug Abuse Patient Records regulations: The Federal rules restrict any use of the information to criminally investigate or prosecute any alcohol or drug abuse patient.[facility] HospitalIn the event this information is protected by the Federal Confidentiality of Alcohol and Drug Abuse Patient Records regulations: The Federal rules restrict any use of the information to criminally investigate or prosecute any alcohol or drug abuse patient.[facility] HospitalIn the event this information is protected by the Federal Confidentiality of Alcohol and Drug Abuse Patient Records regulations: The Federal rules restrict any use of the information to criminally investigate or prosecute any alcohol or drug abuse patient.[facility] HospitalIn the event this information is protected by the Federal Confidentiality of Alcohol and Drug Abuse Patient Records regulations: The Federal rules restrict any use of the information to criminally investigate or prosecute any alcohol or drug abuse patient.[facility] HospitalIn the event this information is protected by the Federal Confidentiality of Alcohol and Drug Abuse Patient Records regulations: The Federal rules restrict any use of the information to criminally investigate or prosecute any alcohol or drug abuse patient.[facility] HospitalIn the event this information is protected by the Federal Confidentiality of Alcohol and Drug Abuse Patient Records regulations: The Federal rules restrict any use of the information to criminally investigate or prosecute any alcohol or drug abuse patient.[facility] HospitalIn the event this information is protected by the Federal Confidentiality of Alcohol and Drug Abuse Patient Records regulations: The Federal rules restrict any use of the information to criminally investigate or prosecute any alcohol or drug abuse patient.[facility] HospitalIn the event this information is protected by the Federal Confidentiality of Alcohol and Drug Abuse Patient Records regulations: The Federal rules restrict any use of the information to criminally investigate or prosecute any alcohol or drug abuse patient.[facility] HospitalIn the event this information is protected by the Federal Confidentiality of Alcohol and Drug Abuse Patient Records regulations: The Federal rules restrict any use of the information to criminally investigate or prosecute any alcohol or drug abuse patient.[facility] HospitalIn the event this information is protected by the Federal Confidentiality of Alcohol and Drug Abuse Patient Records regulations: The Federal rules restrict any use of the information to criminally investigate or prosecute any alcohol or drug abuse patient.[facility] HospitalIn the event this information is protected by the Federal Confidentiality of Alcohol and Drug Abuse Patient Records regulations: The Federal rules restrict any use of the information to criminally investigate or prosecute any alcohol or drug abuse patient.[facility] HospitalIn the event this information is protected by the Federal Confidentiality of Alcohol and Drug Abuse Patient Records regulations: The Federal rules restrict any use of the information to criminally investigate or prosecute any alcohol or drug abuse patient.[facility] the event this information is protected by the Federal Confidentiality of Alcohol and Drug Abuse Patient Records regulations: The Federal rules restrict any use of the information to criminally investigate or prosecute any alcohol or drug abuse patient.[facility] HospitalIn the event this information is protected by the Federal Confidentiality of Alcohol and Drug Abuse Patient Records regulations: The Federal rules restrict any use of the information to criminally investigate or prosecute any alcohol or drug abuse patient.[facility] HospitalIn the event this information is protected by the Federal Confidentiality of Alcohol and Drug Abuse Patient Records regulations: The Federal rules restrict any use of the information to criminally investigate or prosecute any alcohol or drug abuse patient.[facility] HospitalIn the event this information is protected by the Federal Confidentiality of Alcohol and Drug Abuse Patient Records regulations: The Federal rules restrict any use of the information to criminally investigate or prosecute any alcohol or drug abuse patient.[facility] HospitalIn the event this information is protected by the Federal Confidentiality of Alcohol and Drug Abuse Patient Records regulations: The Federal rules restrict any use of the information to criminally investigate or prosecute any alcohol or drug abuse patient.[facility] HospitalIn the event this information is protected by the Federal Confidentiality of Alcohol and Drug Abuse Patient Records regulations: The Federal rules restrict any use of the information to criminally investigate or prosecute any alcohol or drug abuse patient.[facility] HospitalIn the event this information is protected by the Federal Confidentiality of Alcohol and Drug Abuse Patient Records regulations: The Federal rules restrict any use of the information to criminally investigate or prosecute any alcohol or drug abuse patient.[facility] HospitalIn the event this information is protected by the Federal Confidentiality of Alcohol and Drug Abuse Patient Records regulations: The Federal rules restrict any use of the information to criminally investigate or prosecute any alcohol or drug abuse patient.[facility] HospitalIn the event this information is protected by the Federal Confidentiality of Alcohol and Drug Abuse Patient Records regulations: The Federal rules restrict any use of the information to criminally investigate or prosecute any alcohol or drug abuse patient.[facility] HospitalIn the event this information is protected by the Federal Confidentiality of Alcohol and Drug Abuse Patient Records regulations: The Federal rules restrict any use of the information to criminally investigate or prosecute any alcohol or drug abuse patient.[facility] Hospital[facility] the event this information is protected by the Federal Confidentiality of Alcohol and Drug Abuse Patient Records regulations: The Federal rules restrict any use of the information to criminally investigate or prosecute any alcohol or drug abuse patient.[facility] HospitalIn the event this information is protected by the Federal Confidentiality of Alcohol and Drug Abuse Patient Records regulations: The Federal rules restrict any use of the information to criminally investigate or prosecute any alcohol or drug abuse patient.[facility] Hospital[facility] the event this information is protected by the Federal Confidentiality of Alcohol and Drug Abuse Patient Records regulations: The Federal rules restrict any use of the information to criminally investigate or prosecute any alcohol or drug abuse patient.[facility] HospitalIn the event this information is protected by the Federal Confidentiality of Alcohol and Drug Abuse Patient Records regulations: The Federal rules restrict any use of the information to criminally investigate or prosecute any alcohol or drug abuse patient.[facility] HospitalIn the event this information is protected by the Federal Confidentiality of Alcohol and Drug Abuse Patient Records regulations: The Federal rules restrict any use of the information to criminally investigate or prosecute any alcohol or drug abuse patient.[facility] HospitalIn the event this information is protected by the Federal Confidentiality of Alcohol and Drug Abuse Patient Records regulations: The Federal rules restrict any use of the information to criminally investigate or prosecute any alcohol or drug abuse patient.[facility] HospitalIn the event this information is protected by the Federal Confidentiality of Alcohol and Drug Abuse Patient Records regulations: The Federal rules restrict any use of the information to criminally investigate or prosecute any alcohol or drug abuse patient.[facility] HospitalIn the event this information is protected by the Federal Confidentiality of Alcohol and Drug Abuse Patient Records regulations: The Federal rules restrict any use of the information to criminally investigate or prosecute any alcohol or drug abuse patient.[facility] HospitalIn the event this information is protected by the Federal Confidentiality of Alcohol and Drug Abuse Patient Records regulations: The Federal rules restrict any use of the information to criminally investigate or prosecute any alcohol or drug abuse patient.[facility] Reason for Visit (unrecogniz ed section and content) Reason Comments Nose Problem bump inside right na re Reason Comments Patient Update Reason Comments Headache x1 month; lightheade d & nausea/vomiting Reason Comments Results Reason Comments ongoing yeast infection Reason Comments Orders Reason Comments Eye Problem Pt reported eye irri tation after contact removal vision screen 20/25 Mouth/Lip Problem reported tingling, i rritation onset AM, throat irritation Reason Comments Rash Pt reported new deod orant, pain rated 3, with irritation, bilateral axillary Reason Comments Rash has gotten worse sin ce seen in [facility] Reason Comments Ear Pain left ear pain and pr essure x this am Reason Comments Pain Bilateral leg pain f or years and is getting increasingly worse Reason Comments Ear Pain right ear and jaw pa in x 1 day Reason Comments Chest Congestion Alonzo, cough x2 days. Reason Comments Sinus Problem X 1 week Reason Comments Follow Up Reason Onset Date Comments Refill Request 11/15/2022 Reason Comments Pain, Throat Pt c/o throat pain, cough, bilateral ears decreased hearing, reported Rx ATB never started. Reason Comments Referral Request Requesting referral for therapist for mental health Reason Comments FMLA papers Reason Comments FMLA papers/letter Reason Comments Recheck Anxiety and depressi on Reason Comments UTI Burning with urinati on x 2 days Reason Comments UTI Was seen in [facility] on [facility] for burning with urination. Antibiotic completed Friday. Still having burning at times. Reason Comments Recheck 4 week anxiety/depre ssion follow up Reason Comments Nausea ALONZO, chills, body ach es x 1 weekPossible tooth infection, bottom right on and off for a year Reason Comments Derm Problem Bumps or bites on ne ck, chest and arms x [address] and runny nose Reason Comments Blood Sugar Reading Patient states she i s getting low readings Reason Comments Ear Pain Left ear x 1 week, d rainage and loss of hearing Reason Comments Ear Pain Reason Comments Cough x 2 days, causing so re throat Reason Onset Date Comments Refill Request 03/30/2024 Reason Comments Nasal Congestion drainage, cough, ear pressure x 2 days, std check,vaginal discharge, burning and itching x 3-4 days Reason Comments Urinary Problem Burning with urinati on, itching and burning on inside, yellow discharge x 1 day Reason Comments requesting a refill on medication Reason Comments urgency with urination Urgency x 2-3 day s Specialty Diagnoses / Procedures Referred By Pauly cheung Referred To Contact Diagnoses uti Procedures OFFICE VISIT, EST PT., LEVEL 2 TC [place] [facility] [place] [address] Referral ID Status Reason Start Date Expiration Date Visits Requested Visits Authorized [id number] Authorized Patient Cleared - Qualified 100% FAS 2024 10/29/2024 99 99 Reason Comments Menstrual Problem stabbing pain in vag inal area, states she has been on period x 30 days Reason Comments Mouth/Lip Problem Bottom front gum yi e painful and swollen x3 days Reason Comments Vaginal Problem discomfort, given fl aygl and doxy on 10/25 Reason Comments Patient Question Reason Comments Vaginal Problem Vaginal itching and discharge and urgency x 3 days Reason Comments Urinary Problem burning with urinati on, check for bv and yeast Reason Comments Vaginal Problem Cramping and bleedin g and passing stringy blood clots during sex x 1 dayVagina feels irritated, no issues previous to sex yesterday Reason Onset Date Comments Results 02/14/2025 Reason Comments Derm Problem Abscess to right luis ast that had been drained last week by the [facility]. It was getting better but now getting worse. Specialty Diagnoses / Procedures Referred By Pauly cheung Referred To Contact Family Medicine / FAMILY MEDICINE Diagnoses Lump by my boob, it's hard and had smelly pus. Procedures MYC OFFICE VISIT Self PodlogYing anglin APRN.DIVEMASTER [address] [place] [address] Phone: tel: fax: Referral ID Status Reason Start Date Expiration Date Visits Requested Visits Authorized [id number] Denied OON Notification Letter Clearance not met - patient not scheduled & unable to contact patient 03/02/2025 05/31/2025 1 0 Care Teams (unrecognized sec tion and content) Tool Repairer Relationship Specialty Start Date End Date Demario Garcia MD [address] [place] [id number] PCP - General Family Practice 07/31/21 Tool Repairer Relationship Specialty Start Date End Date Demario Garcia MD [address] [facility] [place] [address] PCP - General Family Practice 07/31/21 Tool Repairer Relationship Specialty Start Date End Date Demario Garcia MD [address] [facility] [place] [address] PCP - General Family Practice 07/31/21 Tool Repairer Relationship Specialty Start Date End Date Demario Garcia MD [address] [facility] [place] [address] PCP - General Family Practice 07/31/21 Tool Repairer Relationship Specialty Start Date End Date Demario Garcia MD [address] [facility] [place] [address] PCP - General Family Practice 07/31/21 Tool Repairer Relationship Specialty Start Date End Date Grace [place] [facility] [place] [address] PCP - General Pediatrics 11/08/17 07/30/21 Demario Garcia MD [address] [facility] [place] [address] PCP - General Family Practice 07/31/21 Tool Repairer Relationship Specialty Start Date End Date Demario Garcia MD [address] [facility] [place] [address] PCP - General Family Practice 07/31/21 Tool Repairer Relationship Specialty Start Date End Date Ying Piña APRN.DIVEMASTER [address] [facility] [place] [address] PCP - General Family Practice 04/23/22 Tool Repairer Relationship Specialty Start Date End Date PodYing rushing APRN.DIVEMASTER [address] [facility] [place] [address] PCP - General Family Practice 04/23/22 Tool Repairer Relationship Specialty Start Date End Date Podlogar, Ying, DOCK ATTENDANT.DIVEMASTER [address] [place] [address] PCP - General Family Practice 04/23/22 Tool Repairer Relationship Specialty Start Date End Date Podlogar, Ying, DOCK ATTENDANT.DIVEMASTER [address] [place] [address] PCP - General Family Medicine 04/23/22 Tool Repairer Relationship Specialty Start Date End Date Podlogar, Ying, DOCK ATTENDANT.DIVEMASTER [address] [place] [address] PCP - General Family Medicine 04/23/22 Tool Repairer Relationship Specialty Start Date End Date Podlogar, Ying, DOCK ATTENDANT.DIVEMASTER [address] [place] [address] PCP - General Family Medicine 04/23/22 Tool Repairer Relationship Specialty Start Date End Date Podlogar, Ying, DOCK ATTENDANT.DIVEMASTER [address] [place] [address] PCP - General Family Medicine 04/23/22 Tool Repairer Relationship Specialty Start Date End Date Podlogar, Ying, DOCK ATTENDANT.DIVEMASTER [address] [place] [address] PCP - General Family Medicine 04/23/22 Tool Repairer Relationship Specialty Start Date End Date Podlogar, Ying, DOCK ATTENDANT.DIVEMASTER [address] [facility] [place] [place] [address] PCP - General Family Medicine 04/23/22 Tool Repairer Relationship Specialty Start Date End Date Podlogar, Ying, DOCK ATTENDANT.DIVEMASTER [address] [place] [address] PCP - General Family Medicine 04/23/22 Tool Repairer Relationship Specialty Start Date End Date Podlogar, , DOCK ATTENDANT.DIVEMASTER [address] [place] [address] PCP - General Family Medicine 04/23/22 Tool Repairer Relationship Specialty Start Date End Date Podlogar, , DOCK ATTENDANT.DIVEMASTER [address] [place] [address] PCP - General Family Medicine 04/23/22 Team Status: Active Member Role Status Dates Dr. Grace Cui MD Family Provider Active Ying Podlogar MISSILE AND MISSILE CHECKOUT TECHNICIAN, MISSILE AND MISSILE CHECKOUT TECHNICIAN-C Primary Care Provider Active Team Status: Inactive Member Role Status Dates Podlogar MISSILE AND MISSILE CHECKOUT TECHNICIAN, MISSILE AND MISSILE CHECKOUT TECHNICIAN-C Primary Care Provider, Referri ng Provider Active Tammi Norris MISSILE AND MISSILE CHECKOUT TECHNICIAN, MISSILE AND MISSILE CHECKOUT TECHNICIAN-C Attending Provider Active Team Status: Inactive Member Role Status Dates Podlogar MISSILE AND MISSILE CHECKOUT TECHNICIAN, MISSILE AND MISSILE CHECKOUT TECHNICIAN-C Primary Care Provider, Referri ng Provider Active Shanice Patel CNM Attending Provider Active Team Status: Inactive Member Role Status Dates Podlogar MISSILE AND MISSILE CHECKOUT TECHNICIAN, MISSILE AND MISSILE CHECKOUT TECHNICIAN-C Primary Care Provider Active Shanice Patel CNM Attending Provider, Referring Pro vider Active Tool Repairer Relationship Specialty Start Date End Date Podlogar, , DOCK ATTENDANT.DIVEMASTER [address] [place] [address] PCP - General Family Medicine 04/23/22 Tool Repairer Relationship Specialty Start Date End Date Podlogar, , DOCK ATTENDANT.DIVEMASTER [address] [place] [address] PCP - General Family Medicine 04/23/22 Tool Repairer Relationship Specialty Start Date End Date Podlogar, , DOCK ATTENDANT.DIVEMASTER [address] [place] [address] PCP - General Family Medicine 04/23/22 Tool Repairer Relationship Specialty Start Date End Date Podlogar, , DOCK ATTENDANT.DIVEMASTER [address] [place] [address] PCP - General Family Medicine 04/23/22 Tool Repairer Relationship Specialty Start Date End Date Podlogar, , DOCK ATTENDANT.DIVEMASTER [address] [facility] [place] [address] PCP - General Family Medicine 04/23/22 Tool Repairer Relationship Specialty Start Date End Date Podlogar, , DOCK ATTENDANT.DIVEMASTER [address] [facility] [place] [address] PCP - General Family Medicine 04/23/22 Tool Repairer Relationship Specialty Start Date End Date Podlogar, , DOCK ATTENDANT.DIVEMASTER [address] [facility] [place] [address] PCP - General Family Medicine 04/23/22 Tool Repairer Relationship Specialty Start Date End Date Podlogar, , DOCK ATTENDANT.DIVEMASTER [address] [facility] [place] [address] PCP - General Family Medicine 04/23/22 Tool Repairer Relationship Specialty Start Date End Date Podlogar, , DOCK ATTENDANT.DIVEMASTER [address] [facility] [place] [address] PCP - General Family Medicine 04/23/22 Tool Repairer Relationship Specialty Start Date End Date Podlogar, , DOCK ATTENDANT.DIVEMASTER [address] [facility] [place] [address] PCP - General Family Medicine 04/23/22 Tool Repairer Relationship Specialty Start Date End Date Podlogar, , DOCK ATTENDANT.DIVEMASTER [address] [facility] [place] [address] PCP - General Family Medicine 04/23/22 Tool Repairer Relationship Specialty Start Date End Date Podlogar, , DOCK ATTENDANT.DIVEMASTER [address] [facility] [place] [address] PCP - General Family Medicine 04/23/22 Tool Repairer Relationship Specialty Start Date End Date Podlogar, Ying, DOCK ATTENDANT.DIVEMASTER [address] [facility] [place] [address] PCP - General Family Medicine 04/23/22 Tool Repairer Relationship Specialty Start Date End Date Grace Cui MD [address] [place] [place] [address] PCP - General Pediatrics 11/08/17 07/30/21 Tool Repairer Relationship Specialty Start Date End Date Podlogar, Ying, DOCK ATTENDANT.DIVEMASTER [address] [facility] [place] [address] PCP - General Family Medicine 04/23/22 Tool Repairer Relationship Specialty Start Date End Date Podlogar, Ying, DOCK ATTENDANT.DIVEMASTER [address] [facility] [place] [address] PCP - General Family Medicine 04/23/22 Tool Repairer Relationship Specialty Start Date End Date Podlogar, Ying, DOCK ATTENDANT.DIVEMASTER [address] [facility] [place] [address] PCP - General Family Medicine 04/23/22 Tool Repairer Relationship Specialty Start Date End Date Podlogar, Ying, DOCK ATTENDANT.DIVEMASTER [address] [facility] [place] [address] PCP - General Family Medicine 04/23/22 Tool Repairer Relationship Specialty Start Date End Date Podlogar, Ying, DOCK ATTENDANT.DIVEMASTER [address] [facility] [place] [address] PCP - General Family Medicine 04/23/22 Tool Repairer Relationship Specialty Start Date End Date Podlogar, Ying, DOCK ATTENDANT.DIVEMASTER [address] [place] [address] PCP - General Family Medicine 04/23/22 Tool Repairer Relationship Specialty Start Date End Date Podlogar, Ying, DOCK ATTENDANT.DIVEMASTER [address] [place] [address] PCP - General Family Medicine 04/23/22 Team Status: Inactive Member Role Status Dates Ying Podlogar MISSILE AND MISSILE CHECKOUT TECHNICIAN, MISSILE AND MISSILE CHECKOUT TECHNICIAN-C Primary Care Provider Active Start: March 24, 2025 End: March 24, 2025 Ying Podlogar MISSILE AND MISSILE CHECKOUT TECHNICIAN, MISSILE AND MISSILE CHECKOUT TECHNICIAN-C Referring Provider Active Start: March 24, 2025 End: March 24, 2025 MANNY Montoya Attending Provider Active Start: March 24, 2025 End: March 24, 2025 Team Status: Active Member Role Status Dates Ying Cheloglinnette MISSILE AND MISSILE CHECKOUT TECHNICIAN, MISSILE AND MISSILE CHECKOUT TECHNICIAN-C Primary Care Provider Active Start: March 24, 2025 MANNY Montoya Attending Provider Active Start: March 24, 2025 MANNY Montoya Referring Provider Active Start: March 24, 2025 Team Status: Active Member Role/Relationship Status Dates Dr. Grace Cui MD Family Provider Active Ying Podlogar MISSILE AND MISSILE CHECKOUT TECHNICIAN, MISSILE AND MISSILE CHECKOUT TECHNICIAN-C Primary Care Provider Active Team Status: Inactive Member Role/Relationship Status Dates Ying Podlogar MISSILE AND MISSILE CHECKOUT TECHNICIAN, MISSILE AND MISSILE CHECKOUT TECHNICIAN-C Primary Care Provider Active Start: March 24, 2025 End: March 24, 2025 Ying Podlogar MISSILE AND MISSILE CHECKOUT TECHNICIAN, MISSILE AND MISSILE CHECKOUT TECHNICIAN-C Referring Provider Active Start: March 24, 2025 End: March 24, 2025 MANNY Montoya Attending Provider Active Start: March 24, 2025 End: March 24, 2025 Team Status: Inactive Member Role/Relationship Status Dates Ying Podlogar MISSILE AND MISSILE CHECKOUT TECHNICIAN, MISSILE AND MISSILE CHECKOUT TECHNICIAN-C Primary Care Provider Active Start: March 24, 2025 End: March 24, 2025 MANNY Montoya Attending Provider Active Start: March 24, 2025 End: March 24, 2025 MANNY Montoya Referring Provider Active Start: March 24, 2025 End: March 24, 2025 Care Team (unrecognized sect ion and content) Care Team Personnel Name: Yuki Mehta PT Position: P3 Scheduling - Cds Sales Advisor Advanced Member Role: Other Name: PHYSICIAN, NONE Position: Physician Member Role: Primary Care Physician Care Team Related Persons Name: CHAYO NOBLES Jr Address: [address] [place] [address] [place] Name: ARVIND MCMAHON Address: Home [address] [place] [address] [place] Name: ARVIND MCMAHON Address: [address] [place] [address] [place] Name: ARVIND MCMAHON Address: Home [address] Care Team Personnel Name: Yuki Mehta PT Position: P3 Scheduling - Cds Sales Advisor Advanced Member Role: Other Name: PHYSICIAN, NONE Position: Physician Member Role: Primary Care Physician Care Team Related Persons Name: CHAYO NOBLES Jr Address: [address] [place] [address] [place] Name: ARVIND MCMAHON Address: Home [address] [place] [address] [place] Name: ARVIND MCMAHON Address: [address] [place] [address] [place] Name: ARVIND MCMAHON Address: Home [address] Care Team Personnel Name: Yuki Mehta PT Position: P3 Scheduling - Cds Sales Advisor Advanced Member Role: Other Name: PHYSICIAN, PATIENT UNSURE Member Role: Primary Care Physician Name: RICKY LEACH DO Position: ED Physician Member Role: ED Physician Address: Address: [address] [place] [id number] Care Team Related Persons Name: CHAYO NOBLES Jr Address: Home [address] [place] [address] [place] Name: ARVIND MCMAHON Address: [address] [place] [address] [place] Name: ARVIND MCMAHON Address: Home [address] Name: ARVIND MCMAHON Address: Home [address] Care Team Personnel Name: Yuki Mehta Clerneda Taylor PT Position: P3 Scheduling - Cds Sales Advisor Advanced Member Role: Other Name: YING PIÑA APRN.DIVEMASTER Member Role: Primary Care Physician Address: Address: [address] [place], [place] [address] Name: JOSH Celestin Position: AO RN Member Role: ED RN Name: EMY PEREZ MD Position: ED Physician Member Role: Attending Physician Address: Address: [facility] [address] [place] [address] Care Team Related Persons Name: CHAYO NOBLES Jr Address: [address] [facility] [address] Name: ARVIND MCMAHON Address: Home [address] [place] [address] Name: ARVIND MCMAHON Address: Home [address] Name: ARVIND MCMAHON Address: Home [address] [place] [address] FOR RECORDS PERTAINING TO PATIENTS WHO ARE OR HAVE BEEN ENROLLED IN A CHEMICAL DEPENDENCY/SUBSTANCEABUSE PROGRAM, SOME INFORMATION MAY BE OMITTED. This clinical summary was aggregated from multiple sources. Caution should be exercised in using it in the provision of clinical care. This summary normalizes information from multiple sources, and as a consequence, information in this document may materially change the coding, format and clinical context of patient data. In addition, data may be omitted in some cases. CLINICAL DECISIONS SHOULD BE BASED ON THE PRIMARY CLINICAL RECORDS. [employer] provides no warranty or guarantee of the accuracy or completeness of information in this document.
== END | disposition home or self-care (01) ==
LOC: US 10:11
PROVIDERS: PCP Nurse Practitioner Primary Care; Referring Provider Nurse Practitioner Family; Visit Provider Nurse Practitioner Family
DX: N93.0 Postcoital and contact bleeding (principal); N93.9 Abnormal uterine and vaginal bleeding, unspecified
CPT/HCPCS: 76830; 76856

== ENCOUNTER → 2025-04-29 | Outpatient (CLI) | payer OTHER, SELFPAY ==
[2025-05-02 21:07] LABS: Chlamydia By Nucleic Acid AMP Negative (Negative); Gonococcus By Nucleic Acid AMP Negative (Negative)
== END | disposition home or self-care (01) ==
LOC: LABSPEC 11:13
PROVIDERS: PCP Nurse Practitioner Primary Care; Referring Provider Obstetrics & Gynecology; Visit Provider Obstetrics & Gynecology
DX: N93.0 Postcoital and contact bleeding (principal)
CPT/HCPCS: 87070; 87205; 87491; 87591

== ENCOUNTER → 2025-06-03 | Outpatient (CLI) | payer OTHER, SELFPAY ==
[2025-06-03 12:20] LABS: Creatinine, Urine (random) 120.00 mg/dL (28.00-217.00); Microalbumin,Random Urine 122.0 mg/L (<20 mg/L)
[2025-06-03 12:27] LABS: AST(SGOT) 28 U/L (<=31); Alanine Aminotransfer ALT/SGPT 49 U/L (<=34); Albumin, Serum 4.0 g/dL (3.5-5.0); Alkaline Phosphatase 133 U/L (35-104); Anion Gap 10 (5-15); BUN 11 mg/dL (4-19); BUN/Creat Ratio 18.7 RATIO (10-20); Calcium,Total 9.2 mg/dL (7.6-11.0); Carbon Dioxide 21.7 mmol/L (21.0-32.0); Chloride 103 mmol/L (98-108); Cholesterol 194 mg/dL (<=190); Globulin 3.1 g/dL (2.2-4.2); Glucose 189 mg/dL (70-99); Low Density Lipoprotein Calc. 121 mg/dL; Potassium 4.3 mmol/L (3.3-5.1); Triglycerides 137 mg/dL; Very Low Density Lipoprotein 27 mg/dL (5-40); cholesterol:hdl ratio screen 4.25
[2025-06-03 12:57] LABS: Hematocrit 42.9 % (37-47); Hemoglobin 14.6 g/dL (12.0-15.0); Immature Granulocytes Count 0.020 X10^3/uL (0.0-0.0); Mean Corp Hgb Conc 34.0 g/dL (32-36); Mean Corpuscular Volume 88.5 fL (81-99); Mean Platelet Vol. 10.7 fl (6.2-12.0); NRBC Flagged by Analyzer 0 % (0-5); Platelet Count 229 K/mm3 (150-450); RBC Distribution Width CV 11.7 % (11.6-14.6); RBC Distribution Width SD 37.6 fl (35.1-43.9); Red Blood Count 4.85 M/mm3 (4.2-5.4); White Blood Count 11.2 K/mm3 (4.4-11.0)
== END | disposition home or self-care (01) ==
LOC: LAB 11:08
PROVIDERS: PCP Nurse Practitioner Primary Care
DX: E11.9 Type 2 diabetes mellitus without complications (principal); Z13.220 Encounter for screening for lipoid disorders
CPT/HCPCS: 36415; 80053; 80061; 82043; 82570; 84443; 85025

== ENCOUNTER → 2025-09-07 | Outpatient (CLI) | payer OTHER, SELFPAY ==
[2025-09-07 17:12] LABS: HIV Nonreactive (Nonreactive); Hepatitis B Surface Antigen Nonreactive (Nonreactive); Syphilis Antibodies Nonreactive (Nonreactive)
[2025-09-09 13:08] LABS: HCV Quant. RNA PCR HCV Not Detected IU/mL (.)
== END | disposition home or self-care (01) ==
PROVIDERS: PCP Nurse Practitioner Primary Care; Visit Provider Nurse Practitioner Family
DX: N89.8 Other specified noninflammatory disorders of vagina (principal); Z11.3 Encounter for screening for infections with a predominantly sexual mode of transmission
CPT/HCPCS: 36415; 86703; 86780; 87070; 87077; 87205; 87340; 87491; 87522; 87591; 87661